=== PATIENT | male | born 1970 | race African-American/Black ===

== ENCOUNTER 2018-09-07 00:05 | Inpatient (IN) | payer MEDICARE ==
[~2018-09-07] VITALS: Ht 175.3 cm; Wt 75.6 kg
[2018-09-07] MEDS ORDERED: REME15TA PO ×2 (00:16→03:01)
[2018-09-07] MEDS ORDERED: ABIL1TAB13 PO ×2 (00:16→03:01)
[2018-09-07] MEDS ORDERED: LANTINJ4 SC ×2 (00:16→03:01)
[2018-09-07] MEDS ORDERED: SERO400T PO (00:16)
[2018-09-07] MEDS ORDERED: ZOLO25TA PO (00:16)
[2018-09-07] MEDS ORDERED: INSUH10VL SC (00:16)
[2018-09-07] MEDS ORDERED: AMLO25TA PO (00:22)
[2018-09-07] MEDS ORDERED: LISI-1046 PO (00:22)
[2018-09-07] MEDS ORDERED: HYDR12.55 PO (00:22)
[2018-09-07] MEDS ORDERED: NS 1,000 ML IV ONE (00:45)
[2018-09-07 00:55] LABS: VENOUS BASE EXCESS -7.1 (-2.0-2.0); VENOUS HCO3 17.5 MEQ/L (23.0-27.0); VENOUS O2 SATURATION 97.6 % (60.0-80.0); VENOUS PARTIAL PRESSURE CO2 32.8 mmHg (38.0-50.0); VENOUS PARTIAL PRESSURE O2 103.9 mmHg (30.0-50.0); VENOUS PH 7.345 UNITS (7.330-7.430); VENOUS STANDARD HCO3 18.7 MEQ/L; VENOUS TOTAL CO2 18.5 MEQ/L (24.0-28.0)
[2018-09-07 01:02] LABS: BASO % 0.3 % (0.0-1.0); EOS % 0.1 % (0.0-3.0); HEMATOCRIT 38.9 % (42.0-52.0); HEMOGLOBIN 12.5 g/dl (13.5-17.5); LYMPH % 18.2 % (24.0-44.0); MEAN CORPUSCULAR HEMOGLOBIN 25.9 pg (27.0-33.0); MEAN CORPUSCULAR HGB CONC 32.1 g/dl (32.0-36.5); MEAN CORPUSCULAR VOLUME 80.5 fl (80.0-96.0); MONO # 0.5 10^3/uL (0.0-0.8); MONO % 4.1 % (0.0-5.0); NEUTROPHILS # 8.5 10^3/uL (1.8-7.7); NEUTROPHILS % 76.8 % (36.0-66.0); PLATELET COUNT, AUTOMATED 288 10^3/uL (150-450); RED BLOOD COUNT 4.83 10^6/uL (4.30-6.10)
[2018-09-07 01:16] LABS: AMPHETAMINES LEVEL URINE NEGATIVE (NEGATIVE); BARBITURATES URINE NEGATIVE (NEGATIVE); BENZODIAZEPINES URINE NEGATIVE (NEGATIVE); CANNABINOIDS URINE NEGATIVE (NEGATIVE); COCAINE METABOLITE URINE NEGATIVE (NEGATIVE); METHADONE URINE NEGATIVE (NEGATIVE); OPIATES URINE NEGATIVE (NEGATIVE); PHENCYCLIDINE URINE NEGATIVE (NEGATIVE)
[2018-09-07 01:22] LABS: ACETAMINOPHEN LEVEL < 2.0 UG/ML (10.0-30.0); ALBUMIN 2.4 GM/DL (3.2-5.2); ALT/SGPT 117 U/L (12-78); BILIRUBIN,DIRECT 0.1 MG/DL (0.0-0.2); BILIRUBIN,TOTAL 0.2 MG/DL (0.2-1.0); BLOOD UREA NITROGEN 31 MG/DL (7-18); CALCIUM LEVEL 8.4 MG/DL (8.5-10.1); CARBON DIOXIDE LEVEL 18 MEQ/L (21-32); CHLORIDE LEVEL 84 MEQ/L (98-107); CREATININE FOR GFR 2.15 MG/DL (0.70-1.30); GLOMERULAR FILTRATION RATE 42.4 (>60); LIPASE 240 U/L (73-393); POTASSIUM SERUM 4.6 MEQ/L (3.5-5.1); SALICYLATE LEVEL < 1.7 MG/DL (5.0-30.0); SODIUM LEVEL 122 MEQ/L (136-145); TOTAL PROTEIN 7.6 GM/DL (6.4-8.2)
[2018-09-07 01:36] LABS: OSMOLALITY SERUM 359 MOSM/KG (275-295)
[2018-09-07 01:39] LABS: GLUCOSE, FASTING 1120 MG/DL (70-100)
[2018-09-07] MEDS ORDERED: KCL 20MEQ in NS 1000ML 1,000 ML IV SCH (02:15)
[2018-09-07] MEDS ORDERED: HumuLIN R (REGULAR) INSULIN (NovoLIN R) **100U/ML** PER UNIT IV ONE (02:15)
[2018-09-07] MEDS ORDERED: INSULIN IV RATE CHANGE DOCUMENTATION ML/HR XX SCH ×2 (02:15→03:30)
[2018-09-07] MEDS ORDERED: ONDANSETRON 4MG/2ML VIAL (J2405) IV ONE (02:15)
[2018-09-07] MEDS ORDERED: NS 2,000 ML IV ONE (02:30)
[2018-09-07] MEDS ORDERED: INSULIN HUMAN REGULAR 100 UNITS in NS 99 ML IV SCH ×2 (02:45→03:30)
[2018-09-07] MEDS ORDERED: LISI40TA PO (03:01)
[2018-09-07] MEDS ORDERED: GABA-843 PO (03:01)
[2018-09-07] MEDS ORDERED: SERT25TA88 PO (03:01)
[2018-09-07] MEDS ORDERED: PATIENT COMMENT (03:01)
[2018-09-07] MEDS ORDERED: HYDR25TAB PO (03:01)
[2018-09-07] MEDS ORDERED: VITA100T92 PO (03:01)
[2018-09-07] MEDS ORDERED: AMLO2.5T3 PO (03:01)
--- NOTE | 2018-09-07 03:32 | HPEPDOC ---
[facility] [place] Physical Date of Admission Sep 07, 2018 Other Provider None Attending Physician: CRISTOBAL LASSITER MD History and Physical CHIEF COMPLAINT: Suicidal ideation HISTORY OF PRESENT ILLNESS: Patient is a 48-year-old male with insulin-dependent diabetes, hypertension, bipolar disorder, PTSD, and schizoaffective disorder presented to ER with complaints of suicidal ideation. Patient reported that he has stopped taking his medication for morning one week including his insulin because he has been hearing voices in his head telling him to kill himself and he does have thoughts of hurting himself. On arrival in the ER patient was found to have severely elevated blood sugar of over 1000 and elevated anion gap. Patient reports reported thirst, nausea and some vomiting but otherwise reported no other complaints. He stated that he has had DKA in the past. Reportedly he does not have a primary care physician at this time, unsure how he has been getting his medications. PAST MEDICAL HISTORY: 1. Type 1 diabetes. 2. Hypertension. 3. Bipolar disorder. 4. PTSD 5. Schizoaffective disorder PAST SURGICAL HISTORY: None SOCIAL HISTORY: Smokes 2ppd. Social alcohol use. Uses IV cocaine and also marijuana. FAMILY HISTORY: None reported ALLERGIES: Please see below. REVIEW OF SYSTEMS: 10 point review of system negative except as stated in HPI HOME MEDICATIONS: Please see below. PHYSICAL EXAMINATION: General: No acute distress, Alert Eyes: Normal sclera, EOMI, NELLY HENT: Atraumatic, neck supple, moist mucous membranes Cardiovascular: Normal rate, normal rhythm. No murmurs appreciated. Pulmonary: Clear to auscultation b/l, no wheezing GI: Soft, nontender, nondistended Skin: Warm and dry Neuro: CN grossly intact. No focal deficits. Strengths equal b/l. Psych: oriented x 3 LABORATORY DATA: See below. MICROBIOLOGY: Please see below. ASSESSMENT AND PLAN: 1. Type I diabetes with HHS - BS >1000 with elevated AG. pH >7.3. - Has received 1L IVF bolus in ER, will give 2 additional L bolus then to start maintenance rate. - NPO - Fingerstick check q1H in ICU. - BMP q4H. - K+ 4.4. 2. HTN - Resume home medications. 3. Bipolar disorder/Schizoaffective disorder/PTSD/Suicidal ideation - Resume home medications - Need 1:1, to transfer to psych once medically cleared. - ongoing hallucinations with voices telling him to hurt himself. Reported medications not consistent with patient's previous record. Need to have Pharmacy verify with patient's pharmacy in AM. Patient is high risk due to suicidal ideation with [facility] Estimated length of stay 2-3 days with expected disposition to Psych once medically cleared. Vital Signs Vital Signs Date Time Temp Pulse Resp B/P (MAP) Pulse Ox O2 Delivery O2 Flow Rate FiO2 09/07/18 02:00 175/98 (123) 09/07/18 01:50 92 18 98 09/07/18 01:11 Room Air 09/07/18 00:06 97.9 Laboratory Data Labs 24H Laboratory Tests 2 09/07/18 00:44: Immature Granulocyte % (Auto) 0.5, White Blood Count 11.0H, Red Blood Count 4.83, Hemoglobin 12.5L, Hematocrit 38.9L, Mean Corpuscular Volume 80.5, Mean Corpuscular Hemoglobin 25.9L, Mean Corpuscular Hemoglobin Concent 32.1, Red Cell Distribution Width 14.3, Platelet Count 288, Neutrophils (%) (Auto) 76.8H, Lymphocytes (%) (Auto) 18.2L, Monocytes (%) (Auto) 4.1, Eosinophils (%) (Auto) 0.1, Basophils (%) (Auto) 0.3, Neutrophils # (Auto) 8.5H, Lymphocytes # (Auto) 2.0, Monocytes # (Auto) 0.5, Eosinophils # (Auto) 0.0, Basophils # (Auto) 0.0, Nucleated Red Blood Cells % (auto) 0.0, Urine Color STRAW, Urine Appearance CLEAR, Urine pH 5.0, Urine Specific [place] 1.022, Urine Protein 2+H, Urine Glucose (UA) 3+H, Urine Ketones TRACEH, Urine Blood 1+H, Urine Nitrite NEGATIVE, Urine Bilirubin NEGATIVE, Urine Urobilinogen 0.2, Urine Leukocyte Esterase NEGATIVE, Urine WBC (Auto) 0, Urine RBC (Auto) 3, Urine Hyaline Casts (Auto) 0, Urine Bacteria (Auto) NEGATIVE, Urine Squamous Epithelial Cells 0, Urine Sperm (Auto) , Blood Gas Bicarbonate Standard 18.7, Venous Blood pH 7.345, Venous Blood Partial Pressure CO2 32.8L, Venous Blood Partial Pressure O2 103.9H, Venous Blood Total Carbon Dioxide 18.5L, Venous Blood HCO3 17.5L, Venous Blood Oxygen Saturation 97.6H, Venous Blood Base Excess -7.1L, Anion Gap 20H, Glomerular Filtration Rate 42.4L, Osmolality 359H, Calcium Level 8.4L, Aspartate Amino Transf (AST/SGOT) 50H, Alanine Aminotransferase (ALT/SGPT) 117H, Alkaline Phosphatase 184H, Total Bilirubin 0.2, Direct Bilirubin 0.1, Total Protein 7.6, Albumin 2.4L, Albumin/Globulin Ratio 0.46L, Lipase 240, Salicylates Level < 1.7L, Urine Amphetamines Screen NEGATIVE, Urine Benzodiazepines Screen NEGATIVE, Urine Opiates Screen NEGATIVE, Urine Methadone Screen NEGATIVE, Acetaminophen Level < 2.0L, Urine Barbiturates Screen NEGATIVE, Urine Phencyclidine Screen NEGATIVE, Urine Cocaine Metabolite Screen NEGATIVE, Urine Cannabinoids Screen NEGATIVE CBC/BMP Laboratory Tests 09/07/18 00:44 Red Blood Count 4.83, Mean Corpuscular Volume 80.5, Mean Corpuscular Hemoglobin 25.9 L, Mean Corpuscular Hemoglobin Concent 32.1, Red Cell Distribution Width 14.3, Neutrophils (%) (Auto) 76.8 H, Lymphocytes (%) (Auto) 18.2 L, Monocytes (%) (Auto) 4.1, Eosinophils (%) (Auto) 0.1, Basophils (%) (Auto) 0.3, Neutr ophils # (Auto) 8.5 H, Lymphocytes # (Auto) 2.0, Monocytes # (Auto) 0.5, Eosinophils # (Auto) 0.0, Basophils # (Auto) 0.0 Home Medications Scheduled (Sertraline HCl) Unknown Strength Tab, Unknown Dose PO DAILY Amlodipine Besylate (Amlodipine Besylate) Unknown Strength Tab, Unknown Dose PO DAILY Aripiprazole (Abilify) Unknown Strength Tab, Unknown Dose PO DAILY Gabapentin (Gabapentin) 300 Mg Cap, 300 MG PO TID Hydrochlorothiazide (Hydrochlorothiazide) 25 Mg Tab, 25 MG PO DAILY Insulin Aspart (Novolog) 100 U/Ml Inj, 1 DOSE SC AC PER SLIDING SCALE Insulin Glargine (Lantus Solostar) 100 Unit/Ml Inj, 25 UNITS SC QHS Lisinopril (Lisinopril) 40 Mg Tab, 40 MG PO DAILY Mirtazapine (Remeron) Unknown Strength Tab, Unknown Dose PO QHS Quetiapine Fumerate (Seroquel) 400 Mg Tab, 400 MG PO QPM Thiamine Mononitrate (Vitamin B1) 100 Mg Tab, 100 MG PO DAILY Miscellaneous Medications [Patient Comment] PATIENT IS POOR HISTORIAN. CALLING PHARMACY IN MORNING. Allergies Coded Allergies: No Known Allergies (Unverified , 09/07/18) CRISTOBAL LASSITER MD Sep 07, 2018 03:32
[2018-09-07 04:48] LABS: CALCIUM LEVEL 7.8 MG/DL (8.5-10.1); CREATININE FOR GFR 1.82 MG/DL (0.70-1.30); GLOMERULAR FILTRATION RATE 51.3 (>60)
[2018-09-07 05:29] VITALS: BP 169/90
[2018-09-07] MEDS: KCL 20MEQ in NS 1000ML 1,000 ML IV SCH ×2 (05:30→08:03)
[2018-09-07] MEDS ORDERED: DEXTROSE 50% 50 ML SYRINGE IV PRN (06:15)
[2018-09-07] MEDS ORDERED: GLUCAGON FOR INJ 1 MG VIAL (J1610) SC PRN (06:15)
[2018-09-07] MEDS ORDERED: GLUCOSE 4 GM CHEW TABLET PO PRN (06:15)
[2018-09-07] MEDS ORDERED: INFLUENZA QUADRIVALENT PF VACCINE 0.5ML SYRINGE (90686) IM SCH (06:30)
[2018-09-07 08:00] VITALS: BP 156/82
[2018-09-07] MEDS: HumaLOG INSULIN (NovoLOG) PER UNIT SC SCH ×3 (08:17→17:13)
[2018-09-07 09:01] LABS: BLOOD UREA NITROGEN 22 MG/DL (7-18); CALCIUM LEVEL 7.7 MG/DL (8.5-10.1); CARBON DIOXIDE LEVEL 25 MEQ/L (21-32); CHLORIDE LEVEL 107 MEQ/L (98-107); GLOMERULAR FILTRATION RATE > 60.0 (>60); GLUCOSE, FASTING 217 MG/DL (70-100); POTASSIUM SERUM 3.8 MEQ/L (3.5-5.1); SODIUM LEVEL 138 MEQ/L (136-145)
--- NOTE | 2018-09-07 09:24 | ECGEPIP ---
Stationary ECG Study [facility] [place] - ED Test Date: 2018-09-07 Pat Name: JOSEPH NEWTON Department: Room: [place] [address] Gender: M [employer] Teacher: MARCO A : 1970 Requested By: CARLOS Garrett Order Number: [id number] Reading MD: Rubi Gupta Measurements Intervals [facility] Rate: 101 P: 63 DC: 157 QRS: 55 QRSD: 82 T: 8 QT: 345 QTc: 448 Interpretive Statements SINUS TACHYCARDIA POSSIBLE LEFT ATRIAL ENLARGEMENT NONSPECIFIC T-WAVE ABNORMALITY ABNORMAL RHYTHM ECG NO PRIOR FOR COMPARISON Electronically Signed On 09-07-2018 9:24:14 EDT by Rubi Gupta
[2018-09-07] MEDS ORDERED: LEVEMIR (INSULIN DETEMIR) 1 UNITS/0.01ML SC ONE (11:30)
[2018-09-07] MEDS: hydroCHLOROthiazide 25 MG TAB PO SCH (11:57)
[2018-09-07] MEDS: LISINOPRIL 20 MG TAB PO SCH (11:57)
[2018-09-07 12:00] VITALS: BP 159/77
[2018-09-07] MEDS ORDERED: HumaLOG INSULIN (NovoLOG) PER UNIT SC SCH ×3 (12:00→21:00)
[2018-09-07] MEDS: NICOTINE POLACRILEX 2 MG GUM PO PRN ×4 (15:23→22:26)
--- NOTE | 2018-09-07 17:56 | CR ---
DATE OF CONSULTATION: 09/07/2018 HISTORY OF PRESENT ILLNESS: This is a 48-year-old man who actually presented to the hospital requesting a psychiatric admission however he was admitted because of very high blood sugars of over a 1,000. The patient had presented to the hospital complaining of command auditory hallucinations, telling him to harm himself or to jump off a bridge. The patient admits that he had thoughts of hurting himself. The patient has a long standing psychiatric history and he was last hospitalized in a hospital in [place] and there he met a friend who told him there would be a room for him here and that did not work out for him and so basically he was kicked out on the street. Patient tells me that he has not been on any medications now for a lot of weeks including his insulin. He states that he is supposed to be on Remeron, Depakote, Abilify, Zoloft and Seroquel but he is not sure of the doses. He states that he has been diagnosed with schizoaffective disorder, bipolar disorder and PTSD. 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 He says that he has nightmares and flashbacks and he startles easily. PAST PSYCHIATRIC HISTORY: The patient states that he has been hospitalized multiple times. He is originally from [facility]. He says that he made one suicidal attempt where he said that he actually off a building but he ended up in a balcony with fractured ribs. FAMILY HISTORY: There are no suicides in the family. He says that his mom and his sister are bipolar. ABUSE HISTORY: He denies any physical or sexual abuse however he has PTSD as noted above. SUBSTANCE ABUSE: The patient says that he drinks alcohol about two times a month and mildly about once a month, I suspect that he is minimizing how much he is using because the admission note medical service said something about IV cocaine and marijuana. Of note however his toxicology was negative for any drugs. However he talks about wanting to go to an inpatient rehabilitation program and being in a recovery program before, so I suspect that his history with substance abuse is more extensive than what he is telling us. MENTAL STATUS EXAMINATION: He is alert and oriented times three. He is pleasant and cooperative. Verbally spontaneous. Eye contact is fair. Psychomotor activity has decreased. There is no formal thought disorder noted. His mood is full range and appropriate. Patient denied auditory hallucinations. He admits to suicidal ideations and he denies homicidal ideations and concentration is fair. Memory is intact. Insight and judgment is poor. DIAGNOSIS: Other specified psychotic disorder, posttraumatic stress disorder. Schizoaffective disorder by history, bipolar disorder by history. RECOMMENDATIONS: The patient at this point complains of auditory command hallucinations to hurt himself. He is also suicidal. If or when the patient is medically stable he should be transferred to the psychiatric unit for further evaluation and stabilization.
--- NOTE | 2018-09-07 19:40 | IPNPDOC ---
Subjective Date Seen The patient was seen on 09/07/18. Subjective Chief Complaint/HPI Suicidal ideation Events since last encounter Patient reports he has been hearing was as that have been asking him to jump off the bridge and to kill himself. He reports he is still hearing these voices this morning. He reports he does not feel safe. Reports he has not been taking any of his medications for almost a month. Reports he was living with a friend at doesn't live with him anymore. He otherwise reports he is feeling better this morning. Denies any problems with headaches/change in vision. No nausea or vomiting. No chest shortness of breath. No abdominal pain. Tolerating oral intake. Objective Physical Examination General Exam: Positive: Alert, Cooperative, No Acute Distress Eye Exam: Positive: PERRLA ENT Exam: Positive: Mucous membr. moist/pink Chest Exam: Positive: Clear to auscultation, Normal air movement; Negative: Rales, Rhonchi, Wheezing Heart Exam: Positive: Rate Normal, Normal S1, Normal S2 Abdomen Exam: Positive: Soft, Other (no tenderness) Neuro Exam: Positive: Other (awake, alert, oriented 3. Moving all 4 extremities) Assessment /Plan Assessment Diabetes mellitus likely type II with hyperglycemic hyperosmolar state: -Patient was initially treated with IV insulin drip as well as aggressive IV hydration -Fingersticks improved -Subsequently he has been transitioned to subcutaneous insulin -I will administer 25 units Levemir this morning and 30 units tonight - patient reports taking 55-60 units of Levemir at home at bedtime -I will also start him on NovoLog 10 units 3 times a day pre-meal in addition to sliding scalehe reports taking 20 units 3 times a day before meals -Tolerating oral intake -Monitor fingersticks -okay to transfer out of ICU 2. HTN - Resumed lisinopril and HCTZ 3. Bipolar disorder/Schizoaffective disorder/PTSD/Suicidal ideation -Psychiatry has been consulted - appreciate input -Continue one-to-one sitter -He will likely require inpatient mental health treatment once medically stablehopefully by tomorrow Plan/VTE VTE Prophylaxis Ordered?: No VTE Exclusion Mechanical Proph: Low Risk for VTE VTE Exclusion Pharmacological: At Low Risk for VTE VS, I&O, 24H, Fishbone Vital Signs/I&O Vital Signs Date Time Temp Pulse Resp B/P (MAP) Pulse Ox O2 Delivery O2 Flow Rate FiO2 09/07/18 12:00 98.4 88 18 159/77 (104) 09/07/18 08:00 97 09/07/18 01:11 Room Air I&O- Last 24 Hours up to 6 AM 09/07/18 06:00 Intake Total 4782 ml Output Total 1200 ml Balance 3582 ml Laboratory Data 24H LABS Laboratory Tests 2 09/07/18 00:44: Immature Granulocyte % (Auto) 0.5, White Blood Count 11.0H, Red Blood Count 4.83, Hemoglobin 12.5L, Hematocrit 38.9L, Mean Corpuscular Volume 80.5, Mean Corpuscular Hemoglobin 25.9L, Mean Corpuscular Hemoglobin Concent 32.1, Red Cell Distribution Width 14.3, Platelet Count 288, Neutrophils (%) (Auto) 76.8H, Lymphocytes (%) (Auto) 18.2L, Monocytes (%) (Auto) 4.1, Eosinophils (%) (Auto) 0.1, Basophils (%) (Auto) 0.3, Neutrophils # (Auto) 8.5H, Lymphocytes # (Auto) 2.0, Monocytes # (Auto) 0.5, Eosinophils # (Auto) 0.0, Basophils # (Auto) 0.0, Nucleated Red Blood Cells % (auto) 0.0, Urine Color STRAW, Urine Appearance CLEAR, Urine pH 5.0, Urine Specific [place] 1.022, Urine Protein 2+H, Urine Glucose (UA) 3+H, Urine Ketones TRACEH, Urine Blood 1+H, Urine Nitrite NEGATIVE, Urine Bilirubin NEGATIVE, Urine Urobilinogen 0.2, Urine Leukocyte Esterase NEGATIVE, Urine WBC (Auto) 0, Urine RBC (Auto) 3, Urine Hyaline Casts (Auto) 0, Urine Bacteria (Auto) NEGATIVE, Urine Squamous Epithelial Cells 0, Urine Sperm (Auto) , Blood Gas Bicarbonate Standard 18.7, Venous Blood pH 7.345, Venous Blood Partial Pressure CO2 32.8L, Venous Blood Partial Pressure O2 103.9H, Venous Blood Total Carbon Dioxide 18.5L, Venous Blood HCO3 17.5L, Venous Blood Oxygen Saturation 97.6H, Venous Blood Base Excess -7.1L, Anion Gap 20H, Glomerular Filtration Rate 42.4L, Osmolality 359H, Calcium Level 8.4L, Aspartate Amino Transf (AST/SGOT) 50H, Alanine Aminotransferase (ALT/SGPT) 117H, Alkaline Phosphatase 184H, Total Bilirubin 0.2, Direct Bilirubin 0.1, Total Protein 7.6, Albumin 2.4L, Albumin/Globulin Ratio 0.46L, Lipase 240, Salicylates Level < 1.7L, Urine Amphetamines Screen NEGATIVE, Urine Benzodiazepines Screen NEGATIVE, Urine Opiates Screen NEGATIVE, Urine Methadone Screen NEGATIVE, Acetaminophen Level < 2.0L, Urine Barbiturates Screen NEGATIVE, Urine Phencyclidine Screen NE GATIVE, Urine Cocaine Metabolite Screen NEGATIVE, Urine Cannabinoids Screen NEGATIVE 09/07/18 03:50: Anion Gap 12, Glomerular Filtration Rate 51.3L, Calcium Level 7.8L, Blood Urea Nitrogen 26H, Creatinine 1.82H, Sodium Level 134#L, Potassium Level 4.0, Chloride Level 101, Carbon Dioxide Level 21 09/07/18 06:03: Bedside Glucose (Misc Panel) 262H 09/07/18 08:02: Bedside Glucose (Misc Panel) 205H 09/07/18 08:37: Anion Gap 6L, Glomerular Filtration Rate > 60.0, Blood Urea Nitrogen 22H, Creatinine 1.40H, Sodium Level 138, Potassium Level 3.8, Chloride Level 107, Carbon Dioxide Level 25, Calcium Level 7.7L 09/07/18 11:42: Bedside Glucose (Misc Panel) 205H 09/07/18 15:17: Bedside Glucose (Misc Panel) 381H 09/07/18 16:45: Bedside Glucose (Misc Panel) 167H CBC/BMP Laboratory Tests 09/07/18 00:44 Red Blood Count 4.83, Mean Corpuscular Volume 80.5, Mean Corpuscular Hemoglobin 25.9 L, Mean Corpuscular Hemoglobin Concent 32.1, Red Cell Distribution Width 14.3, Neutrophils (%) (Auto) 76.8 H, Lymphocytes (%) (Auto) 18.2 L, Monocytes (%) (Auto) 4.1, Eosinophils (%) (Auto) 0.1, Basophils (%) (Auto) 0.3, Neutrophils # (Auto) 8.5 H, Lymphocytes # (Auto) 2.0, Monocytes # (Auto) 0.5, Eosinophils # (Auto) 0.0, Basophils # (Auto) 0.0 09/07/18 03:50 Calcium Level 7.8 L 09/07/18 08:37 Calcium Level 7.7 L KESHAWN ANN MD Sep 07, 2018 19:40
[2018-09-07] MEDS ORDERED: LEVEMIR (INSULIN DETEMIR) 1 UNITS/0.01ML SC SCH ×2 (21:00)
[2018-09-07 22:00] VITALS: BP 163/80
[2018-09-08] MEDS: NICOTINE POLACRILEX 2 MG GUM PO PRN ×5 (01:22→17:13)
[2018-09-08] MEDS ORDERED: QUEtiapine FUMARATE 200 MG TAB PO ONE (01:30)
[2018-09-08 02:00] VITALS: BP 154/76
[2018-09-08 06:00] VITALS: BP 125/68
[2018-09-08 06:45] LABS: BASO % 0.4 % (0.0-1.0); EOS # 0.2 10^3/uL (0.0-0.50); HEMATOCRIT 33.4 % (42.0-52.0); HEMOGLOBIN 11.4 g/dl (13.5-17.5); LYMPH # 4.2 10^3/uL (1.5-4.5); MEAN CORPUSCULAR HEMOGLOBIN 26.1 pg (27.0-33.0); MEAN CORPUSCULAR HGB CONC 34.1 g/dl (32.0-36.5); MEAN CORPUSCULAR VOLUME 76.6 fl (80.0-96.0); MONO # 0.4 10^3/uL (0.0-0.8); MONO % 4.9 % (0.0-5.0); NEUTROPHILS # 3.2 10^3/uL (1.8-7.7); NEUTROPHILS % 40.4 % (36.0-66.0); PLATELET COUNT, AUTOMATED 215 10^3/uL (150-450); RED BLOOD COUNT 4.36 10^6/uL (4.30-6.10)
[2018-09-08 07:12] LABS: BLOOD UREA NITROGEN 13 MG/DL (7-18); CALCIUM LEVEL 7.6 MG/DL (8.5-10.1); CARBON DIOXIDE LEVEL 29 MEQ/L (21-32); CHLORIDE LEVEL 107 MEQ/L (98-107); GLOMERULAR FILTRATION RATE > 60.0 (>60); GLUCOSE, FASTING 57 MG/DL (70-100); MAGNESIUM LEVEL 1.8 MG/DL (1.8-2.4); PHOSPHORUS LEVEL 1.9 MG/DL (2.5-4.9); POTASSIUM SERUM 3.1 MEQ/L (3.5-5.1); SODIUM LEVEL 140 MEQ/L (136-145)
[2018-09-08] MEDS: HumaLOG INSULIN (NovoLOG) PER UNIT SC SCH ×3 (07:22→17:13)
[2018-09-08] MEDS ORDERED: HumaLOG INSULIN (NovoLOG) PER UNIT SC SCH (07:30)
[2018-09-08] MEDS ORDERED: INFLUENZA QUADRIVALENT PF VACCINE 0.5ML SYRINGE (90686) IM ONE (09:00)
[2018-09-08] MEDS: NEUTRA-PHOS 1.25 GM PACKET PO SCH ×3 (09:00→17:12)
[2018-09-08 09:15] VITALS: BP 125/66
[2018-09-08] MEDS: hydroCHLOROthiazide 25 MG TAB PO SCH (09:15)
[2018-09-08] MEDS: LISINOPRIL 20 MG TAB PO SCH (09:15)
[2018-09-08] MEDS ORDERED: POTASSIUM CHLORIDE 10 MEQ SR TABLET PO ONE (10:15)
--- NOTE | 2018-09-08 13:42 | IPNPDOC ---
Subjective Date Seen The patient was seen on 09/08/18. Subjective Chief Complaint/HPI Suicidal ideation Events since last encounter The patient reports he did not sleep well last night as he was having nightmares that seemed quite real. Reports he is still hearing voices that are telling him to hurt himself. Tolerating oral intake well. No problems with nausea or vomiting. Denies any dizziness. No chest pain/shortness of breath/abdominal pain/nausea/vomiting. No problems with bladder/bowel habits. Objective Physical Examination General Exam: Positive: No Acute Distress, Other (sleeping, easily arousable) Eye Exam: Positive: PERRLA ENT Exam: Positive: Mucous membr. moist/pink Chest Exam: Positive: Clear to auscultation, Normal air movement; Negative: Rales, Rhonchi, Wheezing Heart Exam: Positive: Rate Normal, Normal S1, Normal S2 Abdomen Exam: Positive: Soft, Other (Nontender) Neuro Exam: Positive: Other (sleeping, easily arousable. Moving all 4 extremities.) Assessment /Plan Assessment Diabetes mellitus likely type II with hyperglycemic hyperosmolar state: -Initially treated with IV insulin drip as well as aggressive IV hydration -Fingersticks improved - transitioned to subcutaneous insulin -Patient had problem with hypoglycemia this morning with fingerstick 57. -I have discontinued the pre-meals scheduled insulin. Continue Levemir at lower- dose of 30 units at bedtimepatient reports usually she takes 55-60 units at bedtime in addition to taking 20 units of NovoLog 3 times a day before meals. -Monitor fingersticks 2. HTN - Ct lisinopril and HCTZ 3. Acute kidney injury, likely prerenal related to problem #1 and dehydration from same: -Improved with initial IV fluids -Now tolerating oral intake well -Monitor. 4. Bipolar disorder/Schizoaffective disorder/PTSD/Suicidal ideation -Psychiatry has been consulted - appreciate input -Continue one-to-one sitter -He will require inpatient mental health treatment once medically stable -I will defer psychiatric medications to psychiatry - currently on Seroquel 400 mg every afternoon 5. Hypokalemia: -Replete and recheck 6. Hypophosphatemia: -Replete and recheck Disposition: Anticipate discharge to inpatient mental health unit later today or tomorrow based on patient's fingersticks / blood glucose control Plan/VTE VTE Prophylaxis Ordered?: No VTE Exclusion Mechanical Proph: Low Risk for VTE VTE Exclusion Pharmacological: At Low Risk for VTE VS, I&O, 24H, Fishbone Vital Signs/I&O Vital Signs Date Time Temp Pulse Resp B/P (MAP) Pulse Ox O2 Delivery O2 Flow Rate FiO2 09/08/18 09:15 125/66 09/08/18 06:00 98.0 81 18 99 09/07/18 01:11 Room Air I&O- Last 24 Hours up to 6 AM 09/08/18 06:00 Intake Total 2030 ml Output Total 0 ml Balance 2030 ml Laboratory Data 24H LABS Laboratory Tests 2 09/07/18 15:17: Bedside Glucose (Misc Panel) 381H 09/07/18 16:45: Bedside Glucose (Misc Panel) 167H 09/07/18 19:58: Bedside Glucose (Misc Panel) 172H 09/08/18 05:57: Immature Granulocyte % (Auto) 0.3, White Blood Count 8.0, Red Blood Count 4.36, Hemoglobin 11.4L, Hematocrit 33.4L, Mean Corpuscular Volume 76.6L, Mean Corpuscular Hemoglobin 26.1L, Mean Corpuscular Hemoglobin Concent 34.1, Red Cell Distribution Width 14.6H, Platelet Count 215, Neutrophils (%) (Auto) 40.4, Lymphocytes (%) (Auto) 52.0H, Monocytes (%) (Auto) 4.9, Eosinophils (%) (Auto) 2.0, Basophils (%) (Auto) 0.4, Neutrophils # (Auto) 3.2, Lymphocytes # (Auto) 4.2, Monocytes # (Auto) 0.4, Eosinophils # (Auto) 0.2, Basophils # (Auto) 0.0, Nucleated Red Blood Cells % (auto) 0.0, Anion Gap 4L, Glomerular Filtration Rate > 60.0, Blood Urea Nitrogen 13, Creatinine 1.00, Sodium Level 140, Potassium Level 3.1L, Chloride Level 107, Carbon Dioxide Level 29, Calcium Level 7.6L, Phosphorus Level 1.9L, Magnesium Level 1.8 CBC/BMP Laboratory Tests 09/08/18 05:57 Red Blood Count 4.36, Mean Corpuscular Volume 76.6 L, Mean Corpuscular Hemoglobin 26.1 L, Mean Corpuscular Hemoglobin Concent 34.1, Red Cell Distribution Width 14.6 H, Neutrophils (%) (Auto) 40.4, Lymphocytes (%) (Auto) 52.0 H, Monocytes (%) (Auto) 4.9, Eosinophils (%) (Auto) 2.0, Basophils (%) (Auto) 0.4, Neutrophils # (Auto) 3.2, Lymphocytes # (Auto) 4.2, Monocytes # (Auto) 0.4, Eosinophils # (Auto) 0.2, Basophils # (Auto) 0.0, Calcium Level 7.6 L KESHAWN ANN MD Sep 08, 2018 13:42
[2018-09-08 14:00] VITALS: BP 125/59
[2018-09-08] MEDS ORDERED: INSUHUMDS SC ×2 (14:34)
[2018-09-08] MEDS ORDERED: INSUDET SC (14:34)
[2018-09-08] MEDS ORDERED: NEUTPW PO (14:34)
--- NOTE | 2018-09-08 17:02 | DS.PDOC ---
Discharge Summary General Date of Admission Sep 07, 2018 at 03:15 Date of Discharge 09/08/18 Discharge Summary PROCEDURES PERFORMED DURING STAY: None. ADMITTING DIAGNOSES: 1. Type I diabetes with HHS 2. HTN 3. Bipolar disorder/Schizoaffective disorder/PTSD/Suicidal ideation DISCHARGE DIAGNOSES: 1. Diabetes mellitus likely type II with hyperglycemic hyperosmolar state 2. HTN 3. Acute kidney injury, likely prerenal related to problem #1 and dehydration from same 4. Bipolar disorder/Schizoaffective disorder/PTSD/Suicidal ideation 5. Hypokalemia 6. Hypophosphatemia COMPLICATIONS/CHIEF COMPLAINT: Bipolor Disorder,Diabetic Hyperosmolar Non Ketotic. HISTORY OF PRESENT ILLNESS: The patient is a 48-year-old gentleman with a previous history of diabetes mellitus as well as a reported history of schizoaffective disorder, PTSD, bipolar disorder presented to the ER with complaints of suicidal ideation. The patient had not been taking any of his medications for a month per his reports. In the ER, the patient was found to have blood sugar over 1000. He also had elevated anion gap. Findings were consistent with HHS. The patient was given fluid boluses and was patient was admitted to the ICU on an insulin drip for further management. HOSPITAL COURSE: Diabetes mellitus likely type II with hyperglycemic hyperosmolar state: -Initially treated with IV insulin drip as well as aggressive IV hydration -Fingersticks improved - transitioned to subcutaneous insulin -Patient had problem with hypoglycemia this morning with fingerstick 57. -I have discontinued the pre-meals scheduled insulin. Continue Levemir at lower- dose of 25 units at bedtime (patient reports usually she takes 55-60 units at bedtime in addition to taking 20 units of NovoLog 3 times a day before meals). We will continue the sliding scale insulin -Monitor fingersticks 2. HTN - Ct lisinopril and HCTZ 3. Acute kidney injury, likely prerenal related to problem #1 and dehydration from same: -Improved with initial IV fluids -Now tolerating oral intake well -Monitor. 4. Bipolar disorder/Schizoaffective disorder/PTSD/Suicidal ideation -Psychiatry has been consulted - appreciate input -Continue one-to-one sitter -He will require inpatient mental health treatment once medically stable -I will defer psychiatric medications to psychiatry - currently on Seroquel 400 mg every afternoon 5. Hypokalemia: -Repleted 6. Hypophosphatemia: -Repleted DISCHARGE MEDICATIONS: Please see below. ALLERGIES: Please see below. PHYSICAL EXAMINATION ON DISCHARGE: VITAL SIGNS: Please see below. GENERAL: Lying in bed. No distress HEENT: PERRLA CARDIOVASCULAR EXAMINATION: S1-S2 heard, regular rate rhythm. No rubs or gallops. RESPIRATORY EXAMINATION: Clear to auscultation bilaterally. No wheeze, no crackles ABDOMINAL EXAMINATION: Soft, nontender EXTREMITIES: Bilateral pulses present. Extremities are warm and well perfused NEUROLOGICAL EXAMINATION: Awake, alert, oriented 3 and answering questions appropriately LABORATORY DATA: Please see below. ACTIVITY: As tolerated. DIET: Carbohydrate controlled diet DISCHARGE PLAN: Plan is for patient to be discharged to inpatient mental health unit today. Outpatient follow-up with primary care provider in one week following discharge from [facility] DISCHARGE INSTRUCTIONS: 1. BMP, mag and phos to be checked tomorrow DISCHARGE CONDITION: Stable. TIME SPENT ON DISCHARGE: 38 minutes. Vital Signs/I&Os Vital Signs Date Time Temp Pulse Resp B/P (MAP) Pulse Ox O2 Delivery O2 Flow Rate FiO2 09/08/18 14:00 98.5 74 18 125/59 (81) 99 09/07/18 01:11 Room Air I&O- Last 24 Hours up to 6 AM 09/08/18 06:00 Intake Total 2030 ml Output Total 0 ml Balance 2030 ml Laboratory Data Labs 24H Laboratory Tests 2 09/07/18 19:58: Bedside Glucose (Misc Panel) 172H 09/08/18 05:57: Immature Granulocyte % (Auto) 0.3, White Blood Count 8.0, Red Blood Count 4.36, Hemoglobin 11.4L, Hematocrit 33.4L, Mean Corpuscular Volume 76.6L, Mean C orpuscular Hemoglobin 26.1L, Mean Corpuscular Hemoglobin Concent 34.1, Red Cell Distribution Width 14.6H, Platelet Count 215, Neutrophils (%) (Auto) 40.4, Lymphocytes (%) (Auto) 52.0H, Monocytes (%) (Auto) 4.9, Eosinophils (%) (Auto) 2.0, Basophils (%) (Auto) 0.4, Neutrophils # (Auto) 3.2, Lymphocytes # (Auto) 4.2, Monocytes # (Auto) 0.4, Eosinophils # (Auto) 0.2, Basophils # (Auto) 0.0, Nucleated Red Blood Cells % (auto) 0.0, Anion Gap 4L, Glomerular Filtration Rate > 60.0, Blood Urea Nitrogen 13, Creatinine 1.00, Sodium Level 140, Potassium Level 3.1L, Chloride Level 107, Carbon Dioxide Level 29, Calcium Level 7.6L, Phosphorus Level 1.9L, Magnesium Level 1.8 CBC/BMP Laboratory Tests 09/08/18 05:57 Red Blood Count 4.36, Mean Corpuscular Volume 76.6 L, Mean Corpuscular Hemoglobin 26.1 L, Mean Corpuscular Hemoglobin Concent 34.1, Red Cell Distribution Width 14.6 H, Neutrophils (%) (Auto) 40.4, Lymphocytes (%) (Auto) 52.0 H, Monocytes (%) (Auto) 4.9, Eosinophils (%) (Auto) 2.0, Basophils (%) (Auto) 0.4, Neutrophils # (Auto) 3.2, Lymphocytes # (Auto) 4.2, Monocytes # (Auto) 0.4, Eosinophils # (Auto) 0.2, Basophils # (Auto) 0.0, Calcium Level 7.6 L FSBS Laboratory Tests Test 09/07/18 19:58 Range/Units Bedside Glucose (Misc Panel) 172 70-105 MG/DL Discharge Medications Scheduled Hydrochlorothiazide (Hydrochlorothiazide) 25 Mg Tab, 25 MG PO DAILY, (Reported) Insulin Detemir (Levemir) 1 Units/0.01 Ml Susp, 25 UNITS SC QHS Insulin Human Lispro (Humalog) 1 Units/0.01 Ml Inj, 0 UNITS SC AC 0-100: 0 units, 101-150: 2 units, 151-200: 4 units, 201-250: 6 units, 251- 300: 8 units, 301-350: 10 units, 351-400: 12 units, >400: 14 units Insulin Human Lispro (Humalog) 1 Units/0.01 Ml Inj, 0 UNITS SC QHS 0-250: 0 units, 251-300: 2 Units, 301-350: 4 units, 351-400: 6 units, >400: 8 units Lisinopril (Lisinopril) 40 Mg Tab, 40 MG PO DAILY, (Reported) Potassium Phos/Sodium Phos (Phos-Nak Powder (Neutra Phos) 280-160-250 mg) 1 Pkt Powd, 1 PKT PO QID Quetiapine Fumerate (Seroquel) 400 Mg Tab, 400 MG PO QPM, (Reported) Allergies Coded Allergies: No Known Allergies (Unverified , 09/07/18) KESHAWN ANN MD Sep 08, 2018 17:02
[2018-09-08] MEDS ORDERED: QUEtiapine FUMARATE 200 MG TAB PO SCH (21:00)
== END 2018-09-08 17:50 | DRG 638 ==
LOC: M ED 00:05 → M ED INP 03:15 → M ICU 05:22 → M MSPAV 17:26
PROVIDERS: ADMIT Student in an Organized Health Care Education/Training Program; ATTEND Internal Medicine
DX: E11.00 Type 2 diabetes mellitus with hyperosmolarity without nonketotic hyperglycemic-hyperosmolar coma (NKHHC) (principal); R45.851 Suicidal ideations; N17.9 Acute kidney failure, unspecified; E87.6 Hypokalemia; E83.39 Other disorders of phosphorus metabolism; F25.0 Schizoaffective disorder, bipolar type; E86.0 Dehydration; F43.10 Post-traumatic stress disorder, unspecified; Z79.899 Other long term (current) drug therapy; Z79.4 Long term (current) use of insulin

== ENCOUNTER 2018-09-08 17:35 | Inpatient (IN) | payer MEDICARE ==
[~2018-09-08] VITALS: Ht 175.3 cm; Wt 80.2 kg
[~2018-09-08 17:35] MED LIST: ABIL1TAB13 PO; AMLO2.5T3 PO; AMLO25TA PO; GABA-843 PO; HYDR12.55 PO; HYDR25TAB PO; INSUDET SC; INSUH10VL SC; INSUHUMDS SC; LANTINJ4 SC; LISI-1046 PO; LISI40TA PO; NEUTPW PO; PATIENT COMMENT; REME15TA PO; SERO400T PO; SERT25TA88 PO; VITA100T89 PO; ZOLO25TA PO
[2018-09-08] MEDS ORDERED: GLUCOSE 4 GM CHEW TABLET PO PRN (18:00)
[2018-09-08] MEDS ORDERED: GLUCAGON FOR INJ 1 MG VIAL (J1610) SC PRN (18:00)
[2018-09-08] MEDS ORDERED: MAALOX 30 ML SUSP *UDC PO PRN (18:00)
[2018-09-08] MEDS ORDERED: MOM 30ML SUSPENSION UDC PO PRN (18:00)
[2018-09-08] MEDS ORDERED: ACETAMINOPHEN TAB 650MG DOSE (2X325MG) PO PRN (18:00)
[2018-09-08] MEDS: NICOTINE POLACRILEX 2 MG GUM PO PRN ×2 (20:05→22:02)
[2018-09-08 20:13] VITALS: BP 150/84
[2018-09-08] MEDS: GABAPENTIN 300 MG CAP PO SCH (21:53)
[2018-09-08] MEDS: QUEtiapine FUMARATE 200 MG TAB PO SCH (21:53)
[2018-09-08] MEDS: LEVEMIR (INSULIN DETEMIR) 1 UNITS/0.01ML SC SCH (22:03)
[2018-09-08] MEDS: HumaLOG INSULIN (NovoLOG) PER UNIT SC SCH (22:03)
[2018-09-09] MEDS: HumaLOG INSULIN (NovoLOG) PER UNIT SC SCH ×4 (06:25→21:55)
[2018-09-09] MEDS: NICOTINE POLACRILEX 2 MG GUM PO PRN ×6 (06:30→22:10)
[2018-09-09 06:58] VITALS: BP 113/55
[2018-09-09 08:11] LABS: BLOOD UREA NITROGEN 15 MG/DL (7-18); CALCIUM LEVEL 7.7 MG/DL (8.5-10.1); CARBON DIOXIDE LEVEL 29 MEQ/L (21-32); CHLORIDE LEVEL 106 MEQ/L (98-107); CREATININE FOR GFR 1.36 MG/DL (0.70-1.30); GLOMERULAR FILTRATION RATE > 60.0 (>60); GLUCOSE, FASTING 167 MG/DL (70-100); MAGNESIUM LEVEL 1.9 MG/DL (1.8-2.4); PHOSPHORUS LEVEL 2.9 MG/DL (2.5-4.9); POTASSIUM SERUM 3.6 MEQ/L (3.5-5.1); SODIUM LEVEL 141 MEQ/L (136-145)
[2018-09-09] MEDS: GABAPENTIN 300 MG CAP PO SCH ×3 (08:30→21:52)
[2018-09-09] MEDS: hydroCHLOROthiazide 25 MG TAB PO SCH (08:30)
[2018-09-09] MEDS: LISINOPRIL 40 MG TAB PO SCH (08:30)
--- NOTE | 2018-09-09 08:45 | CR.PDOC ---
General Date of Consultation: Sep 09, 2018 Referring Provider: Katty Lopez Attending Physician: PEDRO LUIS SORENSEN MD Consultation HOSPITALIST CONSULT REASON FOR CONSULTATION/CHIEF COMPLAINT: management of blood sugars HISTORY OF PRESENT ILLNESS: Mr. Paris is a 48-year-old male with a history of IDDM 2, recently admitted for DKA. He had initially presented to the ER with complaints of suicidal ideation, had not taken his meds for over a week due to voices in his head telling himself to kill himself. He was medically stabilized and brought off insulin drip, then transferred to [facility] for further management of his psychiatric condition. Hospitalist was consulted to additionally manage his blood sugars as they have been reportedly labile. When examined, patient states that he has been on other medication such as metformin in the past, however currently is only managed with insulin. He states he normally takes 50 units of Lantus before bedtime, and 20 units of NovoLog before each meal, and that this regimen usually keeps his blood sugars in the mid 200s, however he does have episodes of hypoglycemia about once a week with blood sugars in the 60s. He has no complaints today. No new paresthesias, however he does have history of diab etic neuropathy. No lightheadedness, dizziness, nausea, vomiting, abdominal pain. ALLERGIES: Please see below. HOME MEDICATIONS: Please see below. PAST MEDICAL HISTORY: 1. IDDM2 2. Bipolar Disorder 3. Hypertension. 4. PTSD 5. Schizoaffective disorder PAST SURGICAL HISTORY: none SOCIAL HISTORY: Smokes 2 PPD. Social alcohol use. Per records, uses IV cocaine and marijuana REVIEW OF SYSTEMS: Constitutional: Denies fever, chills Eyes: Denies eye pain, vision change ENT: Denies headaches, ear pain, dysphagia Skin: Denies any rashes or lesions Pulmonary: Denies dyspnea, cough, wheezing Cardiac: Denies chest pain, palpitations, lightheadedness GI: Denies nausea, vomiting, abdominal pain, changes in bowel habit Endocrine: Denies polyuria, polydipsia Neurologic: Denies new weakness or numbness/tingling. Does admit to diabetic neuropathy in feet PHYSICAL EXAMINATION: VITAL SIGNS: Please see below. General: NAD, A&Ox3, resting comfortably HEENT: NCAT, EOMI, anicteric sclera, MMM CV: RRR, no murmurs RESP: CTAB, no w/r/r/ ABD: soft, NT, ND. Benign EXTREMITIES: 2+ radial pulses b/l, able to move all extremities NEURO: no deficits or acute changes PSYCH: appropriately conversant LABORATORY DATA: Please see below. ASSESSMENT/PLAN: 48 yo M with IDDM2 recently admitted to hospital for DKA and now transferred to [facility] for management of his chronic psych conditions. Hospitalist consulted for labile blood sugars. 1. IDDM2 with neuropathy * pt admits to normally using 50U Lantus qhs and 20U Novolog qac and admits to sugars in 200s with this regimen. However, per his record, he is supposed to take 25U Lantus. Currently, he is on 30U Levemir qhs, with overall elevated blood sugars, mostly towards end of the day. We will add additional 10U for mornings, and continue ISS and consistent carb diet. He is otherwise doing well. Monitor blood sugars and adjust regimen accordingly * monitor ac/hs fingersticks * Continue Gabapentin for neuropathy 2. Hypertension-controlled on current regimen: lisinopril, HCTZ 3. Bipolar Disorder / PTSD / Schizoaffective disorder-as per Psych. Appears stable and conversant 4. Nicotine Use Disorder-continue nicotine patch DVT ppx: is ambulating hallways DISPO: We will follow along with you. Vital Signs/I&O Vital Signs Date Time Temp Pulse Resp B/P (MAP) Pulse Ox O2 Delivery O2 Flow Rate FiO2 09/09/18 06:58 98.2 62 14 113/55 (74) 09/08/18 20:13 98 Laboratory Data Labs 24H Laboratory Tests 2 09/08/18 21:58: Bedside Glucose (Misc Panel) 414H 09/09/18 06:20: Bedside Glucose (Misc Panel) 365H 09/09/18 07:28: Anion Gap 6L, Glomerular Filtration Rate > 60.0, Blood Urea Nitrogen 15, Creatinine 1.36H, Sodium Level 141, Potassium Level 3.6, Chloride Level 106, Carbon Dioxide Level 29, Calcium Level 7.7L, Phosphorus Level 2.9#, Magnesium Level 1.9 CBC/BMP Laboratory Tests 09/09/18 07:28 Calcium Level 7.7 L Allergies Coded Allergies: No Known Allergies (Unverified , 09/07/18) Home Medications Scheduled Hydrochlorothiazide (Hydrochlorothiazide) 25 Mg Tab, 25 MG PO DAILY, (Reported) Insulin Detemir (Levemir) 1 Units/0.01 Ml Susp, 25 UNITS SC QHS, #3 Insulin Human Lispro (Humalog) 1 Units/0.01 Ml Inj, 0 UNITS SC AC, #3 0-100: 0 units, 101-150: 2 units, 151-200: 4 units, 201-250: 6 units, 251- 300: 8 units, 301-350: 10 units, 351-400: 12 units, >400: 14 units Insulin Human Lispro (Humalog) 1 Units/0.01 Ml Inj, 0 UNITS SC QHS, #3 0-250: 0 units, 251-300: 2 Units, 301-350: 4 units, 351-400: 6 units, >400: 8 units Lisinopril (Lisinopril) 40 Mg Tab, 40 MG PO DAILY, (Reported) Potassium Phos/Sodium Phos (Phos-Nak Powder (Neutra Phos) 280-160-250 mg) 1 Pkt Powd, 1 PKT PO QID, #3 Quetiapine Fumerate (Seroquel) 400 Mg Tab, 400 MG PO QPM, (Reported) GME ATTESTATION GME ATTESTATION My faculty preceptor for this patient encounter was physically present during the encounter and was fully available. All aspects of the patient interview, examination, medical decision making process, and medical care plan development were reviewed and approved by the faculty preceptor. The faculty preceptor is aware and concurs with the plan as stated in the body of this note and will attest to such by his/her cosignature. YEHUDA WETZEL DO Sep 09, 2018 08:45
[2018-09-09] MEDS ORDERED: INFLUENZA QUADRIVALENT PF VACCINE 0.5ML SYRINGE (90686) IM ONE (09:00)
[2018-09-09] MEDS ORDERED: LEVEMIR (INSULIN DETEMIR) 1 UNITS/0.01ML SC SCH (09:00)
[2018-09-09] MEDS ORDERED: QUEtiapine FUMARATE 100 MG TAB PO ONE (10:45)
--- NOTE | 2018-09-09 11:25 | MHHPE ---
DATE OF ADMISSION: 09/08/2018 IDENTIFYING DATA: He is a 48-year-old -[place] male, single, father of three children, supported by Social Security Disability, was admitted on 9 legal status for suicidal ideation. HISTORY OF PRESENT ILLNESS: The patient initially came for help regarding his psychiatric issues. However, since blood sugar was above 1000, he was admitted to medical unit. He was stabilized and sent back to inpatient mental health unit (IM). Reportedly, the patient was admitted to a hospital in [place] 2 months ago. After the discharge, he moved with a friend. He was unable to get his medications because of a higher copay. For a month, he was being noncompliant with his medications, psychiatric as well as medical; and he decompensated. His friends brought him to the hospital. The patient reports he has been diagnosed with schizoaffective disorder and posttraumatic stress disorder (PTSD). Started hearing voices when he was a teenager. It worsened when he was in his twenties. He had several hospitalizations. He reports now he hears voices. They are command hallucinations, asking him to kill himself. He has plans either to jump off the bridge because of the command hallucination or jump in front of the traffic. His stressors being his sister and mother last year, his father is old (he is 89 years old), financial issues. The patient also has PTSD. 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 He reports of cleaning up the human body parts and other kinds of debris. He has nightmares and sweating during the night. He has flashbacks. His current medications: - Seroquel 100 mg in the a.m. and 400 mg at night - gabapentin 300 mg three times daily which helps him with his voices and his neuropathy PAST PSYCHIATRIC HISTORY: The patient has multiple psychiatric hospitalizations, more than twenty. He was on various medications like Seroquel, risperidone, Abilify, Zoloft, Haldol, BuSpar. SUICIDAL HISTORY: He attempted suicide once jumping off the building, once tried to jump in front of the traffic. DRUG/ALCOHOL HISTORY: The patient has extensive drug/alcohol issues. Drinks alcohol, reports 2-3 times a month. Probably the patient is minimizing. Each time he drinks about nearly a bottle of whiskey. He has history of amphetamine and cocaine abuse. He two rehabilitation treatments. The patient wants to go to rehabilitation. LEGAL HISTORY: Denies legal problems. MEDICAL HISTORY: The patient has history of diabetes mellitus. FAMILY HISTORY: Mother has history of schizophrenia. PERSONAL HISTORY: He was born and raised in [place] and had completed his GED. 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 Currently, he is supported by [facility]. Denies any history of physical or sexual abuse. MENTAL STATUS EXAMINATION: Appearance: Well groomed with clean dress. Behavior is cooperative. Eye contact is normal. Speech spontaneous, conversant. Mood is depressed, worried. Affect is constricted, sad, and tearful. Thought content: Complains of auditory and visual hallucinations. Thought process: Linear, goal-directed, coherent. Cognition: Alert, oriented to time, place, and person. Memory is intact. Insight and judgment are fair to limited. REVIEW OF SYSTEMS: CONSTITUTIONAL: Negative for night sweats and weight loss. HEENT: Negative for epistaxis, headache, hearing loss, sore throat. RESPIRATORY: No cough. No shortness of breath or wheezing. CARDIOVASCULAR: Negative for chest pain, dyspnea. GASTROINTESTINAL: No abdominal pain. No change in bowel habits. GENITOURINARY: No dysuria. No trouble voiding. No hematuria. MUSCULOSKELETAL: Negative for gait disturbances, joint pain, joint swelling, muscle pain. NEUROLOGICAL: Negative for gait disturbances, numbness, tingling, seizure. All other systems negative. VITAL SIGNS: Temperature 98.2, pulse is 62, respiratory rate is 14, blood pressure is 113/55. LABORATORIES: Chemistry: Blood glucose is 365 in the morning. We will get his fingersticks three times daily. Other parameters during the medical side was within normal limits. DIAGNOSES: 1. Schizophrenia, chronic, paranoid type. Rule out schizoaffective disorder, bipolar type. 2. Posttraumatic stress disorder. 3. Diabetes mellitus. TREATMENT RECOMMENDATION: 1. Admit to [facility]. 2. He will be followed by PA for medical needs. Fingerstick twice daily. 3. The patient will be seen by [facility] and case management. 4. The patient will be placed on appropriate precautions, which will include all precautions,15-minute check suicide precaution. 5. The patient will participate in appropriate activities, including individual therapy, group therapy, and milieu therapy. 6. Add Seroquel 100 mg in the a.m. and 400 mg at night. Continue gabapentin 300 mg three times daily. ESTIMATED LENGTH OF STAY: 4-5 days.
[2018-09-09] MEDS ORDERED: hydrOXYzine 25 MG TAB PO PRN (12:45)
[2018-09-09 18:00] VITALS: BP 117/60
[2018-09-09] MEDS: LEVEMIR (INSULIN DETEMIR) 1 UNITS/0.01ML SC SCH (21:56)
[2018-09-09] MEDS: QUEtiapine FUMARATE 200 MG TAB PO SCH (22:37)
[2018-09-10] MEDS: NICOTINE POLACRILEX 2 MG GUM PO PRN ×7 (06:20→22:13)
[2018-09-10] MEDS: HumaLOG INSULIN (NovoLOG) PER UNIT SC SCH ×4 (06:20→21:00)
[2018-09-10 06:54] VITALS: BP 139/73
[2018-09-10] MEDS: GABAPENTIN 300 MG CAP PO SCH ×3 (08:06→21:37)
[2018-09-10] MEDS: LISINOPRIL 40 MG TAB PO SCH (08:06)
[2018-09-10] MEDS: hydroCHLOROthiazide 25 MG TAB PO SCH (08:06)
[2018-09-10] MEDS: BACITRACIN OINT 30GM TOP SCH ×2 (08:06→22:35)
[2018-09-10] MEDS ORDERED: LEVEMIR (INSULIN DETEMIR) 1 UNITS/0.01ML SC ONE (08:45)
[2018-09-10] MEDS ORDERED: LEVEMIR (INSULIN DETEMIR) 1 UNITS/0.01ML SC SCH (09:00)
[2018-09-10] MEDS: QUEtiapine FUMARATE 100 MG TAB PO SCH ×2 (09:05→21:37)
[2018-09-10 09:55] LABS: BLOOD UREA NITROGEN 17 MG/DL (7-18); CALCIUM LEVEL 7.3 MG/DL (8.5-10.1); CARBON DIOXIDE LEVEL 29 MEQ/L (21-32); CHLORIDE LEVEL 104 MEQ/L (98-107); CREATININE FOR GFR 1.46 MG/DL (0.70-1.30); GLOMERULAR FILTRATION RATE > 60.0 (>60); GLUCOSE, FASTING 322 MG/DL (70-100); SODIUM LEVEL 138 MEQ/L (136-145)
[2018-09-10 10:22] LABS: HEMOGLOBIN A1c 13.6 %
--- NOTE | 2018-09-10 11:28 | HPE ---
DATE OF ADMISSION: 09/08/2018 HISTORY OF PRESENT ILLNESS: Please refer to the psychiatric history and evaluation for further details on this admission. This examination and history is intended for medical issues which may need treatment, followup or consultation on this 48-year-old male who was transferred from the ICU after having been treated for diabetic ketoacidosis (DKA) with an elevated blood sugar in the emergency room over 1000, and elevated anion gap. Patient was treated, stabilized and transferred to the mental health unit as he had had suicidal ideations and voices telling him to kill himself. PRIMARY CARE PROVIDER: Does not have a local primary care provider. ALLERGIES: No known allergies. SOCIAL HISTORY: He is single. He smokes 1 to 2 packs of cigarettes per day. He occasionally drinks alcohol. He has used IV cocaine and smoked marijuana. FAMILY HISTORY: Noncontributory. ALLERGIES: No known allergies. PAST MEDICAL HISTORY: Insulin dependent diabetes. Hypertension. Bipolar disorder. Post-traumatic stress disorder (PTSD). Schizophrenic disorder. He has had multiple psychiatric hospitalizations. PAST SURGICAL HISTORY: None. HOME MEDICATIONS: He has been in a hospital in [place]. He does not have a local primary care provider. Currently states: - hydrochlorothiazide 25 mg daily - he states Lantus 50 units at bedtime - NovoLog 25 units before each meal - lisinopril 40 mg by mouth daily - Seroquel 400 mg by mouth every p.m. - potassium phosphate soda 1 packet four times a day - gabapentin 300 mg by mouth three times a day - amlodipine unknown dose daily - thiamine 100 mg daily - Remeron unknown strength at bedtime - Abilify unknown strength daily REVIEW OF SYSTEMS: 11-systems review was done. His only complaint today is of soreness at healing burn to his left hand that he has had about a week and a half. No drainage otherwise. No complaint of headache. No blurry or double vision. No fever, no chills, no tinnitus, no hoarseness. No difficulty swallowing. No lightheadedness or vertigo. Cardiovascular: No complaints of chest pain, shortness of breath, palpitations or edema. Respiratory: No current cough, no sputum production. No hemoptysis. No orthopnea, no wheeze. GI: No nausea, vomiting or diarrhea. No hematochezia. No melena. No complaints of abdominal pain. : No hematuria, dysuria or frequency. Musculoskeletal: No joint redness or swelling. Endocrine history: Insulin dependent diabetes. Hematological: No history of anemia. Neurological: Has some neuropathy. Takes gabapentin. Psychiatric: See psychiatric HPI. PHYSICAL EXAMINATION: 48-year-old cooperative male in no acute distress. Vital signs stable. Blood pressure 117/60, pulse 74, respirations 16, temperature 98.9, height 69 inches, weight 79.1 kg. BMI 25. The patient is alert and oriented times three. Pupils equal and reactive to light. Extraocular movements intact. Cornea and sclera clear. Conjunctiva normal. No facial asymmetry. Pharynx, tongue, and gums pink and moist. Tongue is midline. Neck is supple, without lymphadenopathy. No thyromegaly. No goiter. Carotids 2+ without bruit. Chest clear to auscultation, without wheeze or retraction. Heart is regular. Abdomen benign. Bowel sounds positive. /Rectal: Not done. Extremities show no cyanosis, clubbing or edema. Posterior hand between the index and thumb show a raised healing burn. No drainage. Slightly open. Hand grasps equal. Peripheral pulses equal and palpable bilaterally. Skin is warm and dry. IMPRESSION AND PLAN: 1. Insulin dependent diabetes type 2. Patient had hospitalist consult. They have added daily a.m. Levemir. Continue on sliding scale. Adjustment per hospitalist. 2. History of hypertension. Currently stable on lisinopril and hydrochlorothiazide. 3. Smoking. Patch available. 4. Psychiatric: Plan per psychiatry. EDUCATION: Patient requests and will need to be taught how to use the new glucose monitor and strips that he has in his belongings. He will be taught self fingersticks blood sugars under supervision to ensure that he can perform them adequately when he is discharged. He states he has a new monitor and strips and does not know how to use it. Healing burn left hand. Bacitracin twice a day. EKG on file. Sinus tachycardia, 101. Possible left atrial enlargement. Nonspecific T wave abnormality.
--- NOTE | 2018-09-10 17:05 | IPNPDOC ---
Subjective Date Seen The patient was seen on 09/10/18. Subjective Chief Complaint/HPI Patient seen and examined at the bedside. Denies any acute complaints at this time. States that he hasn't been taking his insulin regimen for the last 2 weeks at least. Notes that he does not know how to use his blood glucose monitor. Otherwise, no acute overnight events noted. Objective Physical Examination General Exam: Positive: Alert, Cooperative, No Acute Distress ENT Exam: Positive: Atraumatic, Mucous membr. moist/pink Neck Exam: Negative: JVD Chest Exam: Positive: Clear to auscultation, Normal air movement Heart Exam: Positive: Rate Normal, Normal S1, Normal S2 Abdomen Exam: Positive: Soft; Negative: Tenderness Extremity Exam: Negative: Tenderness, Swelling Assessment /Plan Plan/VTE VTE Prophylaxis Ordered?: No VTE Exclusion Mechanical Proph: Low Risk for VTE Plan IDDM2 with neuropathy HgbA1c noted to be 13.6% Insulin regimen being adjusted to control blood sugars accordingly I had an extensive conversation with the patient at the bedside regarding the importance of remaining adherent to his insulin regimen. We will continue to reinforce this with the patient as he has a history of nonadherence. Hypertension Cont Lisinopril, HCTZ Bipolar Disorder / PTSD / Schizoaffective disorder Cont as per Psych Nicotine Use Disorder Nicotine patch DVT prophylaxis OOB, Ambulation VS, I&O, 24H, Fishbone Vital Signs/I&O Vital Signs Date Time Temp Pulse Resp B/P (MAP) Pulse Ox O2 Delivery O2 Flow Rate FiO2 09/10/18 06:54 97.6 81 14 139/73 (95) 09/08/18 20:13 98 Laboratory Data 24H LABS Laboratory Tests 2 09/09/18 21:53: Bedside Glucose (Misc Panel) 346H 09/10/18 06:12: Bedside Glucose (Misc Panel) 285H 09/10/18 08:49: Anion Gap 5L, Glomerular Filtration Rate > 60.0, Estimated Mean Plasma Glucose 344H, Hemoglobin A1c 13.6, Blood Urea Nitrogen 17, Creatinine 1.46H, Sodium Level 138, Potassium Level 4.0, Chloride Level 104, Carbon Dioxide Level 29, Calcium Level 7.3L 09/10/18 11:26: Bedside Glucose (Misc Panel) 352H 09/10/18 16:34: Bedside Glucose (Misc Panel) 276H CBC/BMP Laboratory Tests 09/10/18 08:49 Calcium Level 7.3 L PEDRO LUIS SORENSEN MD Sep 10, 2018 17:05
[2018-09-10 18:00] VITALS: BP 142/90
--- NOTE | 2018-09-10 19:19 | MHIPN ---
DATE: 09/10/2018 SUBJECTIVE: "I have been hearing voices, which are feeble, but they are not commanding. I have nightmares and sweats." "I have mood swings, for which the Depakote has helped me in the past." OBJECTIVE: He is a 48-year-old -[place]in[place] male, single, father of three children and supported by Social Security Disability, who was admitted because of suicidal ideas as he was noncompliant with his medications. He has a history of multiple psychiatric hospitalizations and significant drug/alcohol use history. He also has a history of suicide attempt in the past. Currently, he is back on his medications. I am titrating the dose of his medication. MENTAL STATUS EXAMINATION: Appearance: Somewhat disheveled, somewhat drowsy. He is cooperative, made good eye contact. Speech is conversant. Mood is depressed. Affect is somewhat constricted. Thought content: Complains of auditory and visual hallucinations. Thought process: Linear, goal directed. Oriented to time, place and person. Memory is intact. Insight and judgment are fair to limited. VITAL SIGNS: Temperature 97.6, pulse 81, respiratory rate is 14, blood pressure 139/73. LABORATORIES: His glucose was 344, which will be addressed by the equipment records supervisor. DIAGNOSES: 1. Schizophrenia, chronic paranoid type. 2. Posttraumatic stress disorder (PTSD). 3. Polysubstance dependence. 4. Diabetes mellitus. PLAN: Add Depakote 500 mg at night and titrate the dose. Increase Seroquel to 500 mg at night and 100 mg in the morning. Consider adding prazosin if the patient continues to have PTSD symptoms. Estimated length of stay is 4 to 5 days.
[2018-09-10] MEDS: DIVALPROEX 500MG *ER* TAB PO SCH (21:36)
[2018-09-10] MEDS: QUEtiapine FUMARATE 200 MG TAB PO SCH (21:37)
[2018-09-10] MEDS: LEVEMIR (INSULIN DETEMIR) 1 UNITS/0.01ML SC SCH (22:33)
[2018-09-11] MEDS: NICOTINE POLACRILEX 2 MG GUM PO PRN ×7 (01:37→21:08)
[2018-09-11 06:23] VITALS: BP 138/86
[2018-09-11] MEDS: HumaLOG INSULIN (NovoLOG) PER UNIT SC SCH ×4 (07:07→21:36)
[2018-09-11] MEDS: GABAPENTIN 300 MG CAP PO SCH ×3 (09:44→21:03)
[2018-09-11] MEDS: hydroCHLOROthiazide 25 MG TAB PO SCH (09:45)
[2018-09-11] MEDS: BACITRACIN OINT 30GM TOP SCH ×2 (09:45→21:33)
[2018-09-11] MEDS: LISINOPRIL 40 MG TAB PO SCH (09:45)
[2018-09-11] MEDS: LEVEMIR (INSULIN DETEMIR) 1 UNITS/0.01ML SC SCH ×2 (09:46→21:37)
[2018-09-11] MEDS: QUEtiapine FUMARATE 100 MG TAB PO SCH ×2 (09:47→21:51)
--- NOTE | 2018-09-11 13:09 | MHIPN ---
DATE OF SERVICE: 09/11/2018 SUBJECTIVE: "I'm better, but still I hear voices. The voices ask me to hurt myself." OBJECTIVE: He is a 48-year-old -Kitt[place] male, single, father of three children, supported by Social Security Disability, who was admitted because of suicidal ideas. He was noncompliant with his medications. He has a history of schizophrenia and posttraumatic stress disorder (PTSD) and has history of prior suicide attempts. MENTAL STATUS EXAMINATION: Casually dressed. Appearance: Somewhat disheveled. Cooperative. Made good eye contact. Pleasant. Speech conversant. Mood is depressed. Affect is constricted. Thought process: Linear, goal-directed. Thought content: Complains of some vague suicidal thoughts in the past. Currently, he complains of auditory hallucinations, which are commanding in nature. Oriented to time, place, and person. Memory is intact. Insight limited. VITAL SIGNS: Temperature 98, pulse is 70, respiration is 12, blood pressure 138/86. DIAGNOSES: 1. Schizophrenia, chronic, paranoid type. 2. Posttraumatic stress disorder. 3. Polysubstance dependence. 4. Diabetes mellitus. ASSESSMENT: The patient continues to hear voices. Has some of the symptoms of PTSD, like flashbacks and night dreams are persisting. The plan is to add prazosin 1 mg at bedtime and monitor him. ESTIMATED LENGTH OF STAY: 3-4 days. [facility]
--- NOTE | 2018-09-11 13:59 | IPNPDOC ---
Subjective Date Seen The patient was seen on 09/11/18. Subjective Chief Complaint/HPI Patient seen and examined at the bedside. Denies any acute overnight events. Notes that he would like to be taught how to use his glucose monitoring device so he can better check his blood sugar levels at home. Objective Physical Examination General Exam: Positive: Alert, Cooperative, No Acute Distress ENT Exam: Positive: Atraumatic, Mucous membr. moist/pink Neck Exam: Negative: JVD Chest Exam: Positive: Clear to auscultation, Normal air movement Heart Exam: Positive: Rate Normal, Normal S1, Normal S2 Abdomen Exam: Positive: Soft; Negative: Tenderness Extremity Exam: Negative: Tenderness, Swelling Assessment /Plan Plan/VTE VTE Prophylaxis Ordered?: No VTE Exclusion Mechanical Proph: Low Risk for VTE Plan IDDM2 with neuropathy HgbA1c noted to be 13.6% I had an extensive conversation with the patient at the bedside regarding the importance of remaining adherent to his insulin regimen. We will continue to reinforce this with the patient as he has a history of nonadherence. Nursing order placed to teach the patient how to use his glucose monitoring device. We'll continue to monitor his glucose levels and titrate insulin dosing accordingly. Hypertension Cont Lisinopril, HCTZ Bipolar Disorder / PTSD / Schizoaffective disorder Cont as per Psych Nicotine Use Disorder Nicotine patch DVT prophylaxis OOB, Ambulation VS, I&O, 24H, Fishbone Vital Signs/I&O Vital Signs Date Time Temp Pulse Resp B/P (MAP) Pulse Ox O2 Delivery O2 Flow Rate FiO2 09/11/18 06:23 98.0 70 12 138/86 (103) 09/08/18 20:13 98 Laboratory Data 24H LABS Laboratory Tests 2 09/10/18 16:34: Bedside Glucose (Misc Panel) 276H 09/10/18 21:34: Bedside Glucose (Misc Panel) 224H 09/11/18 06:25: Bedside Glucose (Misc Panel) 388H 09/11/18 11:37: Bedside Glucose (Misc Panel) 273H PEDRO LUIS SORENSEN MD Sep 11, 2018 13:59
[2018-09-11] MEDS ORDERED: PRAZOSIN 1 MG CAP PO SCH (17:30)
[2018-09-11 18:03] VITALS: BP 143/87
[2018-09-11] MEDS: DIVALPROEX 500MG *ER* TAB PO SCH (21:03)
[2018-09-11] MEDS: QUEtiapine FUMARATE 200 MG TAB PO SCH (21:51)
[2018-09-12] MEDS: NICOTINE POLACRILEX 2 MG GUM PO PRN ×7 (00:05→22:00)
[2018-09-12] MEDS: HumaLOG INSULIN (NovoLOG) PER UNIT SC SCH ×4 (06:34→21:10)
[2018-09-12 06:47] VITALS: BP 150/86
[2018-09-12] MEDS: BACITRACIN OINT 30GM TOP SCH ×2 (08:26→21:12)
[2018-09-12] MEDS: LISINOPRIL 40 MG TAB PO SCH (08:27)
[2018-09-12] MEDS: hydroCHLOROthiazide 25 MG TAB PO SCH (08:27)
[2018-09-12] MEDS: QUEtiapine FUMARATE 100 MG TAB PO SCH ×2 (08:27→21:37)
[2018-09-12] MEDS: GABAPENTIN 300 MG CAP PO SCH ×3 (08:27→21:08)
[2018-09-12] MEDS: LEVEMIR (INSULIN DETEMIR) 1 UNITS/0.01ML SC SCH ×2 (08:29→21:11)
--- NOTE | 2018-09-12 13:47 | IPN ---
DATE: 09/12/2018 SUBJECTIVE: Patient is seen and examined in inpatient mental health unit today. The patient is sleeping comfortably in bed during the encounter. The patient denies any acute complaints. Denies any distress. OBJECTIVE: VITAL SIGNS: Temperature 97.2, pulse 101, respirations 16, blood pressure 150/86. GENERAL: No signs of acute distress. Patient is comfortable. HEENT: Normocephalic, atraumatic. Extraocular motors grossly intact. CARDIOVASCULAR: Positive S1 and S2. Regular rate. LUNGS: Clear to auscultation bilaterally. ABDOMEN: Soft, nontender. EXTREMITIES: No edema appreciated. Most recent laboratory data done on 09/10/2018 showed sodium 138, potassium 4.1, carbon dioxide 29, BUN 17, creatinine 1.46, GFR is 26, fasting glucose 322, A1c 13.6, calcium 7.3. ASSESSMENT/PLAN: 1. Insulin dependent diabetes. A1c of 13.6. Currently on Levemir covering with sliding scale. On consistent carbohydrate diet. He is on Neurontin for neuropathy. 2. Hypertension. On hydrochlorothiazide and lisinopril. 3. Bipolar/posttraumatic stress disorder (PTSD)/schizoaffective disorder. Management per primary psychiatric team. 4. Tobacco usage. On nicotine gum. 5. Deep vein thrombosis (DVT) prophylaxis. Encourage ambulation.
--- NOTE | 2018-09-12 15:51 | MHIPN ---
DATE: 09/12/2018 SUBJECTIVE: "I could not sleep yesterday, I still hear voices." OBJECTIVE: A 48-year-old -Surinamese male, single, father of three children, supported by social security disability, was admitted because of suicidal ideas. He was noncompliant with his medication. He has a history of multiple psychiatric hospitalizations and also drug and alcohol use history. He also has a history of suicidal thoughts. He is back on his medication and I am titrating the dose. MENTAL STATUS EXAMINATION: Appearance: Well-groomed. His personal hygiene is good. Cooperative. Made good eye contact. Speech is conversant. Mood is depressed. Affect is somewhat constricted. Denies any suicidal or homicidal ideas. Complains of some auditory hallucinations which are mild which are not commanding. Thought Process: Linear, goal-directed. Oriented to time, place and person. Memory is intact. Insight and judgment are fair to limited. DIAGNOSES: 1. Schizophrenia, chronic, paranoid type. 2. Posttraumatic stress disorder. 3. Polysubstance dependence. 4. Diabetes mellitus. VITAL SIGNS: Temperature 97.2, pulse is 101, respiratory rate is 16, blood pressure is 150/86. MEDICATIONS: - prazosin 1 mg at night - Depakote 500 mg at night - quetiapine 500 mg at night and 100 mg daily - gabapentin 300 mg three times a day PLAN: Continue current medication, titrate the dose. Continue individual and group therapy. Continuity of care provided with social media specialist, nursing staff, and treatment team. ESTIMATED LENGTH OF STAY: 3-4 days.
[2018-09-12 18:00] VITALS: BP 146/80
[2018-09-12] MEDS ORDERED: PRAZOSIN 1 MG CAP PO SCH (21:00)
[2018-09-12] MEDS: DIVALPROEX 500MG *ER* TAB PO SCH (21:09)
[2018-09-12] MEDS: QUEtiapine FUMARATE 200 MG TAB PO SCH (21:37)
[2018-09-13] MEDS: NICOTINE POLACRILEX 2 MG GUM PO PRN ×9 (04:25→22:59)
[2018-09-13] MEDS: HumaLOG INSULIN (NovoLOG) PER UNIT SC SCH ×4 (06:43→21:00)
[2018-09-13 07:00] VITALS: BP 144/79
[2018-09-13] MEDS: LEVEMIR (INSULIN DETEMIR) 1 UNITS/0.01ML SC SCH ×2 (08:22→20:59)
[2018-09-13] MEDS: QUEtiapine FUMARATE 100 MG TAB PO SCH ×2 (08:23→22:55)
[2018-09-13] MEDS: GABAPENTIN 300 MG CAP PO SCH (08:23)
[2018-09-13] MEDS: hydroCHLOROthiazide 25 MG TAB PO SCH (08:23)
[2018-09-13] MEDS: LISINOPRIL 40 MG TAB PO SCH (08:23)
[2018-09-13] MEDS: BACITRACIN OINT 30GM TOP SCH ×2 (08:25→20:53)
--- NOTE | 2018-09-13 13:00 | MHIPN ---
DATE: 09/13/2018 SUBJECTIVE: "I did not sleep well. I woke up. I had nightmares and I still have hallucinations, but they are not commanding, and my neuropathic pain has increased." OBJECTIVE: He is a 48-year-old -Indian male, single, father of three children, supported by social security disability, who was admitted because of suicidal ideas. He was noncompliant with his medications. He has a history of multiple psychiatric hospitalizations and significant drug and alcohol use history. He also has a history of suicide attempt in the past. The patient has significant medical problems, which is diabetes mellitus. The patient is noncompliant with his medications and follow-up with his plaster lather. He is being followed up by the plaster lather here. MENTAL STATUS EXAMINATION: Appearance casually dressed. Cooperative. Made good eye contact. Psychomotor activity is normal. Mood is mildly depressed. Affect is constricted. Speech rate, rhythm and volume are good, soft. Thought process linear, goal-directed. Thought content denied any suicidal or homicidal ideas. Complained of some hallucinations, which are not commanding. Insight and judgment are fair to limited. Memory immediate, remote and recent are good. He is alert and oriented to time, place and person. DIAGNOSES: 1. Schizophrenia, chronic, paranoid type. 2. Posttraumatic stress disorder. 3. Polysubstance dependence. 4. Diabetes mellitus. His blood glucose was high today at 454, and he was given insulin. It has come down to 284 now. The plaster lather is titrating the dose of insulin. PLAN: Increase his prazosin to 2 mg at night, increase his gabapentin to 400 mg three times a day, and increase his Seroquel to 150 mg in the a.m. and 400 mg at night.
[2018-09-13] MEDS: GABAPENTIN 400 MG CAP PO SCH ×2 (16:03→20:57)
[2018-09-13 18:00] VITALS: BP 122/86
--- NOTE | 2018-09-13 18:10 | IPNPDOC ---
Text Note Date of Service The patient was seen on 09/13/18. NOTE SUBJECTIVE: Patient is seen and examined in inpatient mental health unit today. The patient denies any acute complaints. Denies any distress. OBJECTIVE: VITAL SIGNS: Listed below. GENERAL: No signs of acute distress. Patient is comfortable. HEENT: Normocephalic, atraumatic. Extraocular motors grossly intact. CARDIOVASCULAR: Positive S1 and S2. Regular rate. LUNGS: Clear to auscultation bilaterally. ABDOMEN: Soft, nontender. EXTREMITIES: No edema appreciated. Most recent laboratory data done on 09/10/2018 showed sodium 138, potassium 4.1, carbon dioxide 29, BUN 17, creatinine 1.46, GFR is 26, fasting glucose 322, A1c 13.6, calcium 7.3. ASSESSMENT/PLAN: #. Insulin dependent diabetes. - A1c of 13.6. Patient's home medication reviewed. - Adjust Levemir accordingly. On sliding scale. On consistent carbohydrate diet. On Neurontin for neuropathy. #. Hypertension. On hydrochlorothiazide and lisinopril. #. Bipolar/posttraumatic stress disorder (PTSD)/schizoaffective disorder. Management per primary psychiatric team. #. Tobacco usage. On nicotine gum. #. Deep vein thrombosis (DVT) prophylaxis. Encourage ambulation. VS,Fishbone, I+O VS, Fishbone, I+O Vital Signs Date Time Temp Pulse Resp B/P (MAP) Pulse Ox O2 Delivery O2 Flow Rate FiO2 09/13/18 07:00 97.9 74 18 144/79 (100) 09/08/18 20:13 98 KRISTIN PINA DO Sep 13, 2018 18:10
[2018-09-13] MEDS: DIVALPROEX 500MG *ER* TAB PO SCH (20:58)
[2018-09-13] MEDS: PRAZOSIN 1 MG CAP PO SCH (20:58)
[2018-09-13] MEDS: QUEtiapine FUMARATE 200 MG TAB PO SCH (22:54)
[2018-09-14] MEDS: NICOTINE POLACRILEX 2 MG GUM PO PRN ×8 (05:56→21:34)
[2018-09-14] MEDS: HumaLOG INSULIN (NovoLOG) PER UNIT SC SCH ×4 (06:24→20:57)
[2018-09-14 06:59] VITALS: BP 129/84
[2018-09-14] MEDS: GABAPENTIN 400 MG CAP PO SCH ×3 (08:25→20:55)
[2018-09-14] MEDS: hydroCHLOROthiazide 25 MG TAB PO SCH (08:25)
[2018-09-14] MEDS: LISINOPRIL 40 MG TAB PO SCH (08:25)
[2018-09-14] MEDS: QUEtiapine FUMARATE 50 MG TAB PO SCH (08:26)
[2018-09-14] MEDS: BACITRACIN OINT 30GM TOP SCH ×2 (09:00→20:57)
[2018-09-14] MEDS ORDERED: LEVEMIR (INSULIN DETEMIR) 1 UNITS/0.01ML SC SCH ×2 (09:00→21:00)
--- NOTE | 2018-09-14 11:11 | MHIPN ---
DATE: 09/14/2018 SUBJECTIVE: " I still hear voices but they are less frequent. I am looking into possibilities of going to a rehab." OBJECTIVE: He is a 48-year-old -Chilean male, single, father of three children supported by social security disability, admitted because of suicidal thoughts. He is noncompliant with his medications. He has multiple psychiatric hospitalizations. He also has drug-alcohol history. Currently, he is less depressed. Denies any suicidal thoughts, however, complains of auditory hallucinations which are not commanding in nature. MENTAL STATUS EXAMINATION: Well-groomed. Personalizing is fair. Cooperative. Makes good eye contact. Psychomotor activity is normal. Speech is conversant. Mood is depressed. Affect is more constricted. Denies any suicidal or homicidal ideas. Complains of some auditory or visual hallucination, which are mild but are not commanding. Thought process linear, goal-directed, oriented to time, place and person. Memory is intact. Insight and judgment are fair. DIAGNOSES: Schizophrenia, chronic, paranoid type. Posttraumatic stress disorder. Polysubstance dependence. Diabetes mellitus. VITAL SIGNS: Temperature 97.9, pulse 84, respiratory rate 14, blood pressure 129/84. PLAN: Continue current medications. Possibility of getting into a rehab will be discussed with socially responsible investment adviser. CURRENT MEDICATIONS: - quetiapine 150 mg once daily and 500 mg at night - Depakote 500 mg at night - prazosin 2 mg at night - gabapentin 400 mg three times a day LABS: His blood glucose was 292. Medical corrections counselor is aware of it.
--- NOTE | 2018-09-14 13:18 | IPNPDOC ---
Text Note Date of Service The patient was seen on 09/14/18. NOTE SUBJECTIVE: Patient is seen and examined in inpatient mental health unit today. Patient's outpatient insulin regimen discussed. He states his glucose levels were between 100-200. However, his A1C was 13.6. The patient denies any acute complaints. No nausea or vomiting. No abdominal pain. Patient has good oral intake. OBJECTIVE: VITAL SIGNS: Listed below. GENERAL: No signs of acute distress. Patient is comfortable. HEENT: Normocephalic, atraumatic. Extraocular motors grossly intact. CARDIOVASCULAR: Positive S1 and S2. Regular rate. LUNGS: Clear to auscultation bilaterally. ABDOMEN: Soft, nontender. EXTREMITIES: No edema appreciated. Most recent laboratory data done on 09/10/2018 showed sodium 138, potassium 4.1, carbon dioxide 29, BUN 17, creatinine 1.46, GFR is 26, fasting glucose 322, A1c 13.6, calcium 7.3. ASSESSMENT/PLAN: #. Insulin dependent diabetes. - A1c of 13.6. Patient's home medication reviewed. - Continue titrating Levemir as needed. On sliding scale. On consistent carbohydrate diet. On Neurontin for neuropathy. #. Hypertension. - On hydrochlorothiazide and lisinopril. BP in good range. #. Bipolar/posttraumatic stress disorder (PTSD)/schizoaffective disorder. - Management per primary psychiatric team. #. Tobacco usage. On nicotine gum. #. Deep vein thrombosis (DVT) prophylaxis. Encourage ambulation. VS,Fishbone, I+O VS, Fishbone, I+O Vital Signs Date Time Temp Pulse Resp B/P (MAP) Pulse Ox O2 Delivery O2 Flow Rate FiO2 09/14/18 06:59 97.9 84 14 129/84 (99) 09/08/18 20:13 98 KRISTIN PINA DO Sep 14, 2018 13:18
[2018-09-14 18:00] VITALS: BP 144/81
[2018-09-14] MEDS: DIVALPROEX 500MG *ER* TAB PO SCH (20:55)
[2018-09-14] MEDS: PRAZOSIN 1 MG CAP PO SCH (20:55)
[2018-09-14] MEDS: QUEtiapine FUMARATE 200 MG TAB PO SCH (21:33)
[2018-09-14] MEDS: QUEtiapine FUMARATE 100 MG TAB PO SCH (21:33)
[2018-09-15] MEDS: NICOTINE POLACRILEX 2 MG GUM PO PRN ×9 (02:05→23:15)
[2018-09-15] MEDS: HumaLOG INSULIN (NovoLOG) PER UNIT SC SCH ×4 (06:31→20:37)
[2018-09-15 06:49] VITALS: BP 140/83
[2018-09-15] MEDS: LISINOPRIL 40 MG TAB PO SCH (08:49)
[2018-09-15] MEDS: hydroCHLOROthiazide 25 MG TAB PO SCH (08:51)
[2018-09-15] MEDS: QUEtiapine FUMARATE 50 MG TAB PO SCH (08:52)
[2018-09-15] MEDS: GABAPENTIN 400 MG CAP PO SCH ×3 (08:52→20:26)
[2018-09-15] MEDS: BACITRACIN OINT 30GM TOP SCH ×2 (08:53→20:34)
[2018-09-15] MEDS ORDERED: LEVEMIR (INSULIN DETEMIR) 1 UNITS/0.01ML SC SCH (09:00)
--- NOTE | 2018-09-15 10:31 | MHIPNPDOC ---
[facility] Progress Note Progress Note DATE OF SERVICE: 09/15/18 IDENTIFYING DATA: Per Admit note: "He is a 48-year-old -Kenyan male, single, father of three children, supported by Social Security Disability, was admitted on legal status for suicidal ideation. HISTORY OF PRESENT ILLNESS: The patient initially came for help regarding his psychiatric issues. However, since blood sugar was above 1000, he was admitted to medical unit. He was stabilized and sent back to inpatient mental health unit ([facility] Reportedly, the patient was admitted to a hospital in [place] 2 months ago. After the discharge, he moved with a friend. He was unable to get his medications because of a higher copay. For a month, he was being noncompliant with his medications, psychiatric as well as medical; and he decompensated. His friends brought him to the hospital. The patient reports he has been diagnosed with schizoaffective disorder and posttraumatic stress disorder (PTSD). Started hearing voices when he was a teenager. It worsened when he was in his twenties. He had several hospitalizations. He reports now he hears voices. They are command hallucinations, asking him to kill himself. He has plans either to jump off the bridge because of the command hallucination or jump in front of the traffic. His stressors being his sister and mother last year, his father is old (he is 89 years old), financial issues. The patient also has PTSD. 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 He reports of cleaning up the human body parts and other kinds of debris. He has nightmares and sweating during the night. He has flashbacks." SUBJECTIVE: "I don't hear voices anymore. I'm going to rehab Tuesday." OBJECTIVE: He is a 48-year-old -[place]yan male, single, father of three children supported by social security disability, admitted because of suicidal thoughts. He is noncompliant with his medications. He has multiple psychiatric hospitalizations. He also has drug-alcohol history. Currently, he is less depressed and denies AH. States meds are beneficial and he's tolerating them well. Denies any suicidal thoughts. Motivated toward rehab transfer next Tuesday. MENTAL STATUS EXAMINATION: Well-groomed. Personalizing is fair. Cooperative. Makes good eye contact. Psychomotor activity is normal. Speech is conversant. Mood is less depressed. Affect is less constricted. Denies any suicidal or homicidal ideas. Denies auditory or visual hallucination. Thought process linear, goal- directed, oriented to time, place and person. Memory is intact. Insight and judgment are fair. DIAGNOSES: Schizophrenia, chronic, paranoid type. Posttraumatic stress disorder. Polysubstance dependence. Diabetes mellitus (jewelry consultant is following elevated blood glucose.) PLAN: Continue current medications. Possibility of getting into a rehab will be discussed with social service director. CURRENT MEDICATIONS: - quetiapine 150 mg once daily and 500 mg at night - Depakote 500 mg at night - prazosin 2 mg at night - gabapentin 400 mg three times a day Vital Signs Vital Signs Date Time Temp Pulse Resp B/P (MAP) Pulse Ox O2 Delivery O2 Flow Rate FiO2 09/15/18 06:49 97.9 99 16 140/83 (102) Laboratory Data 24H Labs Laboratory Tests 2 09/14/18 11:52: Bedside Glucose (Misc Panel) 237H 09/14/18 16:35: Bedside Glucose (Misc Panel) 282H 09/15/18 06:13: Bedside Glucose (Misc Panel) 327H Current Medications Current Medications Acetaminophen (Tylenol Tab) 650 mg Q6HP PRN PO HEADACHE or DISCOMFORT; Start 09/08/18 at 18:00 Al Hydrox/Mg Hydrox/Simethicone (Mylanta) 30 ml Q4HP PRN PO HEARTBURN/INDIGESTION Last administered on 09/14/18at 22:17; Start 09/08/18 at 18:00 Bacitracin (Bacitracin Oint) to burn left hand for 7 days BID TOP Last administered on 09/12/18at 21:12; Start 09/10/18 at 09:00; Stop 09/16/18 at 21:01 Divalproex Sodium (Depakote Er) 500 mg QHS PO Last administered on 09/14/18at 20:55; Start 09/10/18 at 21:00 Gabapentin (Neurontin) 300 mg TID PO Last administered on 09/13/18at 08:23; Start 09/08/18 at 21:00; Stop 09/13/18 at 11:58; Status DC Gabapentin (Neurontin) 400 mg TID PO Last administered on 09/15/18 08:52; Start 09/13/18 at 16:00 Glucagon (Glucagon) 1 mg ASDIRECTED PRN SC SEE LABEL COMMENTS; Start 09/08/18 at 18:00 Glucose (Glucose) 16 GM ASDIRECTED PRN PO SEE LABEL COMMENTS; Start 09/08/18 at 18:00 Hydrochlorothiazide (Hydrodiuril) 25 mg DAILY PO Last administered on 09/15/18at 08:51; Start 09/09/18 at 09:00 Hydroxyzine HCl (Atarax) 25 mg Q6HP PRN PO ANXIETY; Start 09/09/18 at 12:45 Insulin Detemir (Levemir Insulin) 10 units DAILY SC ; Start 09/09/18 at 09:00; Stop 09/09/18 at 09:00; Status DC Insulin Detemir (Levemir Insulin) 10 units DAILY SC Last administered on 09/10/18at 08:05; Start 09/10/18 at 09:00; Stop 09/10/18 at 09:00; Status DC Insulin Detemir (Levemir Insulin) 20 units DAILY SC Last administered on 09/13/18 08:22; Start 09/11/18 at 09:00; Stop 09/13/18 at 18:06; Status DC Insulin Detemir (Levemir Insulin) 30 units DAILY SC Last administered on 09/14/18 08:26; Start 09/14/18 at 09:00; Stop 09/15/18 at 07:42; Status DC Insulin Detemir (Levemir Insulin) 30 units QHS SC Last administered on 09/10/18at 22:33; Start 09/08/18 at 21:00; Stop 09/11/18 at 08:56; Status DC Insulin Detemir (Levemir Insulin) 40 units QAM SC Last administered on 09/15/18 08:52; Start 09/15/18 at 09:00 Insulin Detemir (Levemir Insulin) 40 units QHS SC Last administered on 20:59; Start 09/11/18 at 21:00; Stop 09/14/18 at 13:14; Status DC Insulin Detemir (Levemir Insulin) 50 units QHS SC Last administered on 09/14/18at 20:56; Start 09/14/18 at 21:00 Insulin Human Lispro (HumaLOG INSULIN) See Protocol Table AC SC Last ad ministered on 09/15/18at 06:31; Start 09/09/18 at 07:30 Insulin Human Lispro (HumaLOG INSULIN) See Protocol Table QHS SC Last adm inistered on 09/12/18at 21:10; Start 09/08/18 at 21:00 Lisinopril (Prinivil) 40 mg DAILY PO Last administered on 09/15/18at 08:49; Start 09/09/18 at 09:00 Magnesium Hydroxide (Milk Of Magnesia) 30 ml DAILYPRN PRN PO CONSTIPATION; Start 09/08/18 at 18:00 Nicotine (Nicorette) 2 mg Q2HP PRN PO NICOTINE WITHDRAWAL Last administered on 09/11/18at 15:19; Start 09/08/18 at 18:00; Stop 09/11/18 at 18:15; Status DC Nicotine (Nicorette) 4 mg Q2HP PRN PO NICOTINE WITHDRAWAL Last administered on 09/15/18at 08:53; Start 09/11/18 at 18:15 Prazosin HCl (Minipress) 1 mg ACS PO Last administered on 09/11/18at 17:08; Start 09/11/18 at 17:30; Stop 09/12/18 at 17:34; Status DC Prazosin HCl (Minipress) 1 mg QHS PO Last administered on 09/12/18at 21:09; Start 09/12/18 at 21:00; Stop 09/13/18 at 11:57; Status DC Prazosin HCl (Minipress) 2 mg QHS PO Last administered on 09/14/18at 20:55; Start 09/13/18 at 21:00 Quetiapine Fumarate (SEROquel) 100 mg DAILY PO Last administered on 09/13/18at 08:23; Start 09/10/18 at 09:00; Stop 09/13/18 at 12:00; Status DC Quetiapine Fumarate (SEROquel) 100 mg QHS PO Last administered on 09/14/18at 21:33; Start 09/10/18 at 21:00 Quetiapine Fumarate (SEROquel) 150 mg DAILY PO Last administered on 09/15/18at 08:52; Start 09/14/18 at 09:00 Quetiapine Fumarate (SEROquel) 400 mg QHS PO Last administered on 09/09/18at 22:37; Start 09/08/18 at 21:00; Stop 09/10/18 at 10:51; Status DC Quetiapine Fumarate (SEROquel) 400 mg QHS PO Last administered on 09/14/18at 21:33; Start 09/10/18 at 21:00 Allergies Coded Allergies: No Known Allergies (Unverified , 09/07/18) DYLAN ADAIR DO Sep 15, 2018 10:31 am
--- NOTE | 2018-09-15 17:22 | IPNPDOC ---
Text Note Date of Service The patient was seen on 09/15/18. NOTE SUBJECTIVE: Patient is seen and examined in inpatient mental health unit today. Patient states he has been on insulin for more than 8 years. He states his daily oral intake has been consist. He used to follow with healthcare provider in [place] for his diabetes management. However, since he moved to [place], he has not had chance to establish with any provider locally yet. Denies any acute co mplaints. Patient has good oral intake. OBJECTIVE: VITAL SIGNS: Listed below. GENERAL: No signs of acute distress. Patient is comfortable. HEENT: Normocephalic, atraumatic. Extraocular motors grossly intact. CARDIOVASCULAR: Positive S1 and S2. Regular rate. LUNGS: Clear to auscultation bilaterally. ABDOMEN: Soft, nontender. EXTREMITIES: No edema appreciated. Most recent laboratory data done on 09/10/2018 showed sodium 138, potassium 4.1, carbon dioxide 29, BUN 17, creatinine 1.46, GFR is 26, fasting glucose 322, A1c 13.6, calcium 7.3. ASSESSMENT/PLAN: #. Insulin dependent diabetes. - A1c of 13.6. Patient's home medication reviewed. - Continue titrating Levemir as needed. On sliding scale. On consistent carbohydrate diet. On Neurontin for neuropathy. - Recommend establish with PCP in [place] after discharge. #. Hypertension. - On hydrochlorothiazide and lisinopril. BP in good range. #. Bipolar/posttraumatic stress disorder (PTSD)/schizoaffective disorder. - Management per primary psychiatric team. #. Tobacco usage. On nicotine gum. #. Deep vein thrombosis (DVT) prophylaxis. Encourage ambulation. VS,Fishbone, I+O VS, Fishbone, I+O Vital Signs Date Time Temp Pulse Resp B/P (MAP) Pulse Ox O2 Delivery O2 Flow Rate FiO2 09/15/18 06:49 97.9 99 16 140/83 (102) KRISTIN PINA DO Sep 15, 2018 17:22
[2018-09-15 18:29] VITALS: BP 141/90
[2018-09-15] MEDS: PRAZOSIN 1 MG CAP PO SCH (20:26)
[2018-09-15] MEDS: DIVALPROEX 500MG *ER* TAB PO SCH (20:26)
[2018-09-15] MEDS: QUEtiapine FUMARATE 200 MG TAB PO SCH (22:31)
[2018-09-15] MEDS: QUEtiapine FUMARATE 100 MG TAB PO SCH (22:31)
[2018-09-15] MEDS: LEVEMIR (INSULIN DETEMIR) 1 UNITS/0.01ML SC SCH ×2 (22:51→22:54)
[2018-09-16] MEDS: HumaLOG INSULIN (NovoLOG) PER UNIT SC SCH ×4 (06:53→21:00)
[2018-09-16 06:57] VITALS: BP 156/76
[2018-09-16] MEDS: hydroCHLOROthiazide 25 MG TAB PO SCH (08:46)
[2018-09-16] MEDS: GABAPENTIN 400 MG CAP PO SCH ×3 (08:46→21:15)
[2018-09-16] MEDS: QUEtiapine FUMARATE 50 MG TAB PO SCH (08:46)
[2018-09-16] MEDS: NICOTINE POLACRILEX 2 MG GUM PO PRN ×6 (08:46→19:57)
[2018-09-16] MEDS: LISINOPRIL 40 MG TAB PO SCH (08:46)
[2018-09-16] MEDS: BACITRACIN OINT 30GM TOP SCH ×2 (08:47→21:00)
[2018-09-16] MEDS ORDERED: LEVEMIR (INSULIN DETEMIR) 1 UNITS/0.01ML SC SCH (09:00)
--- NOTE | 2018-09-16 15:44 | IPNPDOC ---
Text Note Date of Service The patient was seen on 09/16/18. NOTE SUBJECTIVE: Patient is seen and examined in inpatient mental health unit today. Patient denies change of diet. Patient denies nausea or vomiting. Patient complains about mild swelling of right lower extremity. He denies discomfort of right lower extremity. Denies recent trauma. He forgot to try leg elevation. He is on diuretic for HTN. OBJECTIVE: VITAL SIGNS: Listed below. GENERAL: No signs of acute distress. Patient is comfortable. HEENT: Normocephalic, atraumatic. Extraocular motors grossly intact. CARDIOVASCULAR: Positive S1 and S2. Regular rate. LUNGS: Clear to auscultation bilaterally. ABDOMEN: Soft, nontender. EXTREMITIES: Mild edema of right foot. No tenderness to palpation. Most recent laboratory data done on 09/10/2018 showed sodium 138, potassium 4.1, carbon dioxide 29, BUN 17, creatinine 1.46, GFR is 26, fasting glucose 322, A1c 13.6, calcium 7.3. ASSESSMENT/PLAN: #. Insulin dependent diabetes. - A1c of 13.6. Patient's home medication reviewed. - Continue titrating Levemir as needed. On sliding scale. On consistent carbohydrate diet. On Neurontin for neuropathy. - Recommend establishing with PCP in [place] after discharge. #. Hypertension. - On hydrochlorothiazide and lisinopril. BP in good range. #. Bipolar/posttraumatic stress disorder (PTSD)/schizoaffective disorder. - Management per primary psychiatric team. #. Tobacco usage. On nicotine gum. #. Deep vein thrombosis (DVT) prophylaxis. Encourage ambulation. VS,Fishbone, I+O VS, Fishbone, I+O Vital Signs Date Time Temp Pulse Resp B/P (MAP) Pulse Ox O2 Delivery O2 Flow Rate FiO2 09/16/18 06:57 98.7 75 16 156/76 (102) KRISTIN PINA DO Sep 16, 2018 15:44
[2018-09-16 18:35] VITALS: BP 159/85
[2018-09-16] MEDS: LEVEMIR (INSULIN DETEMIR) 1 UNITS/0.01ML SC SCH (21:00)
[2018-09-16] MEDS: DIVALPROEX 500MG *ER* TAB PO SCH (21:15)
[2018-09-16] MEDS: PRAZOSIN 1 MG CAP PO SCH (21:15)
[2018-09-16] MEDS: QUEtiapine FUMARATE 100 MG TAB PO SCH (21:53)
[2018-09-16] MEDS: QUEtiapine FUMARATE 200 MG TAB PO SCH (21:54)
[2018-09-17] MEDS: NICOTINE POLACRILEX 2 MG GUM PO PRN ×10 (02:40→23:47)
[2018-09-17 06:46] VITALS: BP 154/96
[2018-09-17 07:05] LABS: HEMATOCRIT 33.9 % (42.0-52.0); HEMOGLOBIN 11.1 g/dl (13.5-17.5); MEAN CORPUSCULAR HGB CONC 32.7 g/dl (32.0-36.5); MEAN CORPUSCULAR VOLUME 82.5 fl (80.0-96.0); PLATELET COUNT, AUTOMATED 240 10^3/uL (150-450); RED BLOOD COUNT 4.11 10^6/uL (4.30-6.10); WHITE BLOOD COUNT 6.2 10^3/uL (4.0-10.0)
[2018-09-17 07:32] LABS: CALCIUM LEVEL 7.4 MG/DL (8.5-10.1); CREATININE FOR GFR 1.66 MG/DL (0.70-1.30); GLOMERULAR FILTRATION RATE 57.1 (>60); MAGNESIUM LEVEL 1.3 MG/DL (1.8-2.4); POTASSIUM SERUM 4.7 MEQ/L (3.5-5.1); URIC ACID 6.5 MG/DL (3.5-7.2)
[2018-09-17] MEDS: LEVEMIR (INSULIN DETEMIR) 1 UNITS/0.01ML SC SCH ×2 (07:45→20:33)
[2018-09-17] MEDS: QUEtiapine FUMARATE 50 MG TAB PO SCH (08:11)
[2018-09-17] MEDS: GABAPENTIN 400 MG CAP PO SCH ×3 (08:11→20:30)
[2018-09-17] MEDS: hydroCHLOROthiazide 25 MG TAB PO SCH ×2 (08:11→16:48)
[2018-09-17] MEDS: LISINOPRIL 40 MG TAB PO SCH (08:12)
[2018-09-17] MEDS: MAGNESIUM OXIDE 400 MG TAB (MAG-OX) PO SCH ×2 (08:12→20:30)
[2018-09-17] MEDS: HumaLOG INSULIN (NovoLOG) PER UNIT SC SCH ×4 (10:29→20:33)
--- NOTE | 2018-09-17 12:45 | IPNPDOC ---
Text Note Date of Service The patient was seen on 09/17/18. NOTE SUBJECTIVE: Patient is seen and examined in inpatient mental health unit today. Per documentation, patient refused Levemir 60unit last night. Per patient, he did not refused insulin. He did not take the insulin because staff did not remind him to take it. This morning patient was found to have glucose greater than 600. He is complaining about bilateral foot swelling. Denies foot trauma. Denies tenderness. OBJECTIVE: VITAL SIGNS: Listed below. GENERAL: No signs of acute distress. Patient is comfortable. HEENT: Normocephalic, atraumatic. Extraocular motors grossly intact. CARDIOVASCULAR: Positive S1 and S2. Regular rate. LUNGS: Clear to auscultation bilaterally. ABDOMEN: Soft, nontender. EXTREMITIES: Mild edema of bilateral lower extremity below the ankles. No tenderness to palpation. No noticeable wound. LAB: Listed below ASSESSMENT/PLAN: #. Insulin dependent diabetes. - A1c of 13.6. Patient's home medication reviewed. - Continue titrating Levemir as needed. On sliding scale. On consistent carbohydrate diet. On Neurontin for neuropathy. - Recommend establishing with PCP in [place] after discharge. - Patient has skipped insulin last night and his morning glucose was greater than 600. #. Hypertension. - On hydrochlorothiazide and lisinopril. BP in good range. # Bilateral lower extremity edema - On diuretic. Encourage ambulation. Encourage leg elevation. #. Bipolar/posttraumatic stress disorder (PTSD)/schizoaffective disorder. - Management per primary psychiatric team. #. Tobacco usage. On nicotine gum. #. Deep vein thrombosis (DVT) prophylaxis. Encourage ambulation. VS,Kvngbone, I+O VS, Fishbone, I+O Laboratory Tests 09/17/18 06:29 Red Blood Count 4.11 L, Mean Corpuscular Volume 82.5, Mean Corpuscular Hemoglobin 27.0, Mean Corpuscular Hemoglobin Concent 32.7, Red Cell Distribution Width 15.5 H, Calcium Level 7.4 L Vital Signs Date Time Temp Pulse Resp B/P (MAP) Pulse Ox O2 Delivery O2 Flow Rate FiO2 09/17/18 06:46 97.6 96 14 154/96 (115) KRISTIN PINA DO Sep 17, 2018 12:45
[2018-09-17 18:26] VITALS: BP 133/91
[2018-09-17] MEDS: DIVALPROEX 500MG *ER* TAB PO SCH (20:30)
[2018-09-17] MEDS: PRAZOSIN 1 MG CAP PO SCH (20:31)
[2018-09-17] MEDS: QUEtiapine FUMARATE 100 MG TAB PO SCH (21:57)
[2018-09-17] MEDS: QUEtiapine FUMARATE 200 MG TAB PO SCH (21:57)
[2018-09-18] MEDS: NICOTINE POLACRILEX 2 MG GUM PO PRN ×8 (03:15→21:54)
[2018-09-18] MEDS: HumaLOG INSULIN (NovoLOG) PER UNIT SC SCH ×4 (06:53→20:48)
[2018-09-18 07:08] VITALS: BP 174/81
[2018-09-18 08:18] LABS: HEMOGLOBIN 11.6 g/dl (13.5-17.5); MEAN CORPUSCULAR HGB CONC 33.1 g/dl (32.0-36.5); MEAN CORPUSCULAR VOLUME 81.6 fl (80.0-96.0); PLATELET COUNT, AUTOMATED 263 10^3/uL (150-450); RED BLOOD COUNT 4.29 10^6/uL (4.30-6.10); WHITE BLOOD COUNT 6.7 10^3/uL (4.0-10.0)
[2018-09-18] MEDS: LEVEMIR (INSULIN DETEMIR) 1 UNITS/0.01ML SC SCH ×2 (08:45→20:47)
[2018-09-18] MEDS: MAGNESIUM OXIDE 400 MG TAB (MAG-OX) PO SCH ×2 (08:46→20:41)
[2018-09-18] MEDS: hydroCHLOROthiazide 25 MG TAB PO SCH ×2 (08:46→17:01)
[2018-09-18] MEDS: GABAPENTIN 400 MG CAP PO SCH ×3 (08:46→20:44)
[2018-09-18] MEDS: QUEtiapine FUMARATE 50 MG TAB PO SCH (08:46)
[2018-09-18] MEDS: LISINOPRIL 40 MG TAB PO SCH (08:46)
[2018-09-18 08:52] LABS: BLOOD UREA NITROGEN 18 MG/DL (7-18); CALCIUM LEVEL 7.8 MG/DL (8.5-10.1); CARBON DIOXIDE LEVEL 26 MEQ/L (21-32); CHLORIDE LEVEL 101 MEQ/L (98-107); CREATININE FOR GFR 1.49 MG/DL (0.70-1.30); GLOMERULAR FILTRATION RATE > 60.0 (>60); GLUCOSE, FASTING 386 MG/DL (70-100); MAGNESIUM LEVEL 1.5 MG/DL (1.8-2.4); POTASSIUM SERUM 4.1 MEQ/L (3.5-5.1); SODIUM LEVEL 133 MEQ/L (136-145)
--- NOTE | 2018-09-18 10:32 | MHIPNPDOC ---
[facility] Progress Note Progress Note DATE OF SERVICE: 09/18/18 IDENTIFYING DATA: Per Admit note: "He is a 48-year-old -Russian male, single, father of three children, supported by Social Security Disability, was admitted on 9 legal status for suicidal ideation. HISTORY OF PRESENT ILLNESS: The patient initially came for help regarding his psychiatric issues. However, since blood sugar was above 1000, he was admitted to medical unit. He was stabilized and sent back to inpatient mental health unit ([facility]). Reportedly, the patient was admitted to a hospital in [place] 2 months ago. After the discharge, he moved with a friend. He was unable to get his medications because of a higher copay. For a month, he was being noncompliant with his medications, psychiatric as well as medical; and he decompensated. His friends brought him to the hospital. The patient reports he has been diagnosed with schizoaffective disorder and posttraumatic stress disorder (PTSD). Started hearing voices when he was a teenager. It worsened when he was in his twenties. He had several hospitalizations. He reports now he hears voices. They are command hallucinations, asking him to kill himself. He has plans either to jump off the bridge because of the command hallucination or jump in front of the traffic. His stressors being his sister and mother last year, his father is old (he is 89 years old), financial issues. The patient also has PTSD. 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 He reports of cleaning up the human body parts and other kinds of debris. He has nightmares and sweating during the night. He has flashbacks." SUBJECTIVE: "I feel alright." OBJECTIVE: He is a 48-year-old -Russian male, single, father of three children supported by social security disability, admitted because of suicidal thoughts. He is noncompliant with his medications. He has multiple psychiatric hospitalizations. He also has drug-alcohol history. Currently, he is denies depression and denies AH. States meds are beneficial and he's tolerating them well. Denies any suicidal thoughts. Motivated toward rehab transfer this Tuesday. MENTAL STATUS EXAMINATION: Well-groomed. Personalizing is good. Cooperative. Makes good eye contact. Psychomotor activity is normal. Speech is conversant. Mood is euthymic. Affect is full, congruent. Denies any suicidal or homicidal ideas. Denies auditory or visual hallucination. Thought process linear, goal- directed, oriented to time, place and person. Memory is intact. Insight and judgment are good. DIAGNOSES: Schizophrenia, chronic, paranoid type. Posttraumatic stress disorder. Polysubstance dependence. Diabetes mellitus (police detective is following elevated blood glucose.) PLAN: Continue current medications. D/c rehab tomorrow CURRENT MEDICATIONS: - quetiapine 150 mg once daily and 500 mg at night - Depakote 500 mg at night - prazosin 2 mg at night - gabapentin 400 mg three times a day Vital Signs Vital Signs Date Time Temp Pulse Resp B/P (MAP) Pulse Ox O2 Delivery O2 Flow Rate FiO2 09/18/18 07:08 98.2 66 14 174/81 (112) Laboratory Data 24[facility] Labs Laboratory Tests 2 09/17/18 12:41: Bedside Glucose (Misc Panel) 334H 09/17/18 16:44: Bedside Glucose (Misc Panel) 275H 09/17/18 20:30: Bedside Glucose (Misc Panel) 322H 09/18/18 06:03: Bedside Glucose (Misc Panel) 463H 09/18/18 07:43: Nucleated Red Blood Cells % (auto) 0.0, Anion Gap 6L, Glomerular Filtration Rate > 60.0, Blood Urea Nitrogen 18, Creatinine 1.49H, Sodium Level 133L, Potassium Level 4.1, Chloride Level 101, Carbon Dioxide Level 26, Calcium Level 7.8L, Magnesium Level 1.5L CBC/BMP Laboratory Tests 09/18/18 07:43 Red Blood Count 4.29 L, Mean Corpuscular Volume 81.6, Mean Corpuscular Hemoglobin 27.0, Mean Corpuscular Hemoglobin Concent 33.1, Red Cell Distribution Width 15.5 H, Calcium Level 7.8 L Current Medications Current Medications Acetaminophen (Tylenol Tab) 650 mg Q6HP PRN PO HEADACHE or DISCOMFORT; Start 09/08/18 at 18:00 Al Hydrox/Mg Hydrox/Simethicone (Mylanta) 30 ml Q4HP PRN PO HEARTBURN/INDIGESTION Last administered on 09/14/18at 22:17; Start 09/08/18 at 18:00 Bacitracin (Bacitracin Oint) to burn left hand for 7 days BID TOP Last administ ered on 09/16/18at 08:47; Start 09/10/18 at 09:00; Stop 09/16/18 at 21:01; Status DC Divalproex Sodium (Depakote Er) 500 mg QHS PO Last administered on 09/17/18at 20:30; Start 09/10/18 at 21:00 Gabapentin (Neurontin) 300 mg TID PO Last administered on 09/13/18at 08:23; Start 09/08/18 at 21:00; Stop 09/13/18 at 11:58; Status DC Gabapentin (Neurontin) 400 mg TID PO Last administered on 09/18/18at 08:46; Start 09/13/18 at 16:00 Glucagon (Glucagon) 1 mg ASDIRECTED PRN SC SEE LABEL COMMENTS; Start 09/08/18 at 18:00 Glucose (Glucose) 16 GM ASDIRECTED PRN PO SEE LABEL COMMENTS; Start 09/08/18 at 18:00 Hydrochlorothiazide (Hydrodiuril) 25 mg BID@09,17 PO Last administered on 09/18/18at 08:46; Start 09/17/18 at 17:00 Hydrochlorothiazide (Hydrodiuril) 25 mg DAILY PO Last administered on 09/17/18at 08:11; Start 09/09/18 at 09:00; Stop 09/17/18 at 10:31; Status DC Hydroxyzine HCl (Atarax) 25 mg Q6HP PRN PO ANXIETY; Start 09/09/18 at 12:45 Insulin Detemir (Levemir Insulin) 10 units DAILY SC ; Start 09/09/18 at 09:00; Stop 09/09/18 at 09:00; Status DC Insulin Detemir (Levemir Insulin) 10 units DAILY SC Last administered on 09/10/18at 08:05; Start 09/10/18 at 09:00; Stop 09/10/18 at 09:00; Status DC Insulin Detemir (Levemir Insulin) 20 units DAILY SC Last administered on 09/13/18at 08:22; Start 09/11/18 at 09:00; Stop 09/13/18 at 18:06; Status DC Insulin Detemir (Levemir Insulin) 30 units DAILY SC Last administered on 09/14/18 08:26; Start 09/14/18 at 09:00; Stop 09/15/18 at 07:42; Status DC Insulin Detemir (Levemir Insulin) 30 units QHS SC Last administered on 09/10/18at 22:33; Start 09/08/18 at 21:00; Stop 09/11/18 at 08:56; Status DC Insulin Detemir (Levemir Insulin) 40 units QAM SC Last administered on 09/15/18 08:52; Start 09/15/18 at 09:00; Stop 09/15/18 at 17:04; Status DC Insulin Detemir (Levemir Insulin) 40 units QHS SC Last administered on 09/13/18 20:59; Start 09/11/18 at 21:00; Stop 09/14/18 at 13:14; Status DC Insulin Detemir (Levemir Insulin) 50 units DAILY SC Last administered on 09/16/18 08:45; Start 09/16/18 at 09:00; Stop 09/16/18 at 10:34; Status DC Insulin Detemir (Levemir Insulin) 50 units QHS SC Last administered on 09/14/18 20:56; Start 09/14/18 at 21:00; Stop 09/15/18 at 17:06; Status DC Insulin Detemir (Levemir Insulin) 55 units QHS SC Last administered on 09/15/18 22:54; Start 09/15/18 at 21:00; Stop 09/16/18 at 10:34; Status DC Insulin Detemir (Levemir Insulin) 60 units BID SC Last administered on 09/18/18 08:45; Start 09/16/18 at 21:00 Insulin Human Lispro (HumaLOG INSULIN) See Protocol Table AC SC Last administered on 09/18/18 06:53; Start 09/09/18 at 07:30 Insulin Human Lispro (HumaLOG INSULIN) See Protocol Table QHS SC Last administered on 09/17/18 20:33; Start 09/08/18 at 21:00 Lisinopril (Prinivil) 40 mg DAILY PO Last administered on 09/18/18at 08:46; Start 09/09/18 at 09:00 Magnesium Hydroxide (Milk Of Magnesia) 30 ml DAILYPRN PRN PO CONSTIPATION; Start 09/08/18 at 18:00 Magnesium Oxide (Mag-Ox) 800 mg BID PO Last administered on 09/18/18 08:46; Start 09/17/18 at 09:00 Nicotine (Nicorette) 2 mg Q2HP PRN PO NICOTINE WITHDRAWAL Last administered on 09/11/18 15:19; Start 09/08/18 at 18:00; Stop 09/11/18 at 18:15; Status DC Nicotine (Nicorette) 4 mg Q2HP PRN PO NICOTINE WITHDRAWAL Last administered on 09/18/18 08:47; Start 09/11/18 at 18:15 Prazosin HCl (Minipress) 1 mg ACS PO Last administered on 09/11/18 17:08; Start 09/11/18 at 17:30; Stop 09/12/18 at 17:34; Status DC Prazosin HCl (Minipress) 1 mg QHS PO Last administered on 09/12/18 21:09; Start 09/12/18 at 21:00; Stop 09/13/18 at 11:57; Status DC Prazosin HCl (Minipress) 2 mg QHS PO Last administered on 09/17/18 20:31; Start 09/13/18 at 21:00 Quetiapine Fumarate (SEROquel) 100 mg DAILY PO Last administered on 09/13/18 08:23; Start 09/10/18 at 09:00; Stop 09/13/18 at 12:00; Status DC Quetiapine Fumarate (SEROquel) 100 mg QHS PO Last administered on 09/17/18 21:57; Start 09/10/18 at 21:00 Quetiapine Fumarate (SEROquel) 150 mg DAILY PO Last administered on 09/18/18 08:46; Start 09/14/18 at 09:00 Quetiapine Fumarate (SEROquel) 400 mg QHS PO Last administered on 09/09/18 22:37; Start 09/08/18 at 21:00; Stop 09/10/18 at 10:51; Status DC Quetiapine Fumarate (SEROquel) 400 mg QHS PO Last administered on 09/17/18 21:57; Start 09/10/18 at 21:00 Allergies Coded Allergies: No Known Allergies (Unverified , 09/07/18) DYLAN ADAIR DO Sep 18, 2018 10:32 am
--- NOTE | 2018-09-18 15:14 | IPNPDOC ---
Text Note Date of Service The patient was seen on 09/18/18. NOTE SUBJECTIVE: Patient is seen and examined in inpatient mental health unit today. Patient is complaining about bilateral lower extremity swelling. Denies lower extremity tenderness. Denies fever or chill. OBJECTIVE: VITAL SIGNS: Listed below. GENERAL: No signs of acute distress. Patient is comfortable. HEENT: Normocephalic, atraumatic. Extraocular motors grossly intact. CARDIOVASCULAR: Positive S1 and S2. Regular rate. LUNGS: Clear to auscultation bilaterally. ABDOMEN: Soft, nontender. EXTREMITIES: Mild edema of bilateral lower extremity. No calf tenderness. No noticeable wound. LAB: Listed below ASSESSMENT/PLAN: #. Insulin dependent diabetes. - A1c of 13.6. Patient's home medication reviewed. - Continue titrating Levemir as needed. On sliding scale. On consistent carbohydrate diet. On Neurontin for neuropathy. - Recommend establishing with PCP in [place] after discharge. - Patient has skipped long acting insulin on 09/16/18 evening time. # Bilateral lower extremity edema. - No Calf tenderness. No trauma. No wound. No warmth. - Encourage leg elevation. Encourage ambulation. Trial of VALENCIA stocking. #. Hypertension. - On hydrochlorothiazide and lisinopril. #. Schizophrenia/bipolar/PTSD/ - Management per primary psychiatric team. - Possible discharge to rehab on 09/19/18 per psych. #. Tobacco usage. On nicotine gum. #. Deep vein thrombosis (DVT) prophylaxis. Encourage ambulation. VS,Fishbone, I+O VS, Fishbone, I+O Laboratory Tests 09/18/18 07:43 Red Blood Count 4.29 L, Mean Corpuscular Volume 81.6, Mean Corpuscular Hemoglobin 27.0, Mean Corpuscular Hemoglobin Concent 33.1, Red Cell Distribution Width 15.5 H, Calcium Level 7.8 L Vital Signs Date Time Temp Pulse Resp B/P (MAP) Pulse Ox O2 Delivery O2 Flow Rate FiO2 09/18/18 07:08 98.2 66 14 174/81 (112) KRISTIN PINA DO Sep 18, 2018 15:14
[2018-09-18 18:00] VITALS: BP 136/78
[2018-09-18] MEDS: DIVALPROEX 500MG *ER* TAB PO SCH (20:42)
[2018-09-18 20:44] VITALS: BP 140/90
[2018-09-18] MEDS: PRAZOSIN 1 MG CAP PO SCH (20:44)
[2018-09-18] MEDS: QUEtiapine FUMARATE 100 MG TAB PO SCH (21:53)
[2018-09-18] MEDS: QUEtiapine FUMARATE 200 MG TAB PO SCH (21:53)
[2018-09-19] MEDS: NICOTINE POLACRILEX 2 MG GUM PO PRN ×3 (00:18→08:28)
[2018-09-19] MEDS: HumaLOG INSULIN (NovoLOG) PER UNIT SC SCH (06:38)
[2018-09-19 06:48] VITALS: BP 148/80
[2018-09-19 08:08] LABS: BLOOD UREA NITROGEN 19 MG/DL (7-18); CALCIUM LEVEL 8.3 MG/DL (8.5-10.1); CARBON DIOXIDE LEVEL 29 MEQ/L (21-32); CHLORIDE LEVEL 105 MEQ/L (98-107); CREATININE FOR GFR 1.35 MG/DL (0.70-1.30); GLOMERULAR FILTRATION RATE > 60.0 (>60); GLUCOSE, FASTING 261 MG/DL (70-100); MAGNESIUM LEVEL 1.8 MG/DL (1.8-2.4); POTASSIUM SERUM 4.3 MEQ/L (3.5-5.1); SODIUM LEVEL 138 MEQ/L (136-145)
[2018-09-19] MEDS: LEVEMIR (INSULIN DETEMIR) 1 UNITS/0.01ML SC SCH (08:23)
[2018-09-19] MEDS: GABAPENTIN 400 MG CAP PO SCH (08:24)
[2018-09-19] MEDS: LISINOPRIL 40 MG TAB PO SCH (08:24)
[2018-09-19] MEDS: QUEtiapine FUMARATE 50 MG TAB PO SCH (08:24)
[2018-09-19] MEDS: hydroCHLOROthiazide 25 MG TAB PO SCH (08:24)
[2018-09-19] MEDS: MAGNESIUM OXIDE 400 MG TAB (MAG-OX) PO SCH (08:25)
--- NOTE | 2018-09-19 08:33 | MHDSPDOC ---
[facility] Discharge Summary Discharge Summary DATE OF ADMISSION: Sep 08, 2018 at 5:59 pm DATE OF DISCHARGE: September 19, 2018 DISCHARGE DIAGNOSES: Schizophrenia, chronic, paranoid type. Posttraumatic stress disorder. Polysubstance dependence. REASON FOR ADMISSION: IDENTIFYING DATA: Per Admit note: "He is a 48-year-old -[place] male, single, father of three children, supported by Social Security Disability, was admitted on legal status for suicidal ideation. HISTORY OF PRESENT ILLNESS: The patient initially came for help regarding his psychiatric issues. However, since blood sugar was above 1000, he was admitted to medical unit. He was stabilized and sent back to inpatient mental health unit ([facility]). Reportedly, the patient was admitted to a hospital in [place] 2 months ago. After the discharge, he moved with a friend. He was unable to get his medications because of a higher copay. For a month, he was being noncompliant with his medications, psychiatric as well as medical; and he decompensated. His friends brought him to the hospital. The patient reports he has been diagnosed with schizoaffective disorder and posttraumatic stress disorder (PTSD). Started hearing voices when he was a teenager. It worsened when he was in his twenties. He had several hospitalizations. He reports now he hears voices. They are command hallucinations, asking him to kill himself. He has plans either to jump off the bridge because of the command hallucination or jump in front of the traffic. His stressors being his sister and mother last year, his father is old (he is 89 years old), financial issues. The patient also has PTSD. 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 He reports of cleaning up the human body parts and other kinds of debris. He has nightmares and sweating during the night. He has flashbacks." CONSULTANTS INVOLVED: medicine for uncontrolled diabetes TREATMENT AND PROGRESS ON THE UNIT :Pt was admitted to [facility], seen for psychiatric assessment and started on quetiapine 150 mg once daily and 500 mg at night, Depakote 500 mg at night, prazosin 2 mg at night gabapentin 400 mg three times a day. He was provided trazodone 50mg qhs prn insomnia. Pt found his medications beneficial and tolerated them well. He attended groups daily during his stay. His symptoms improved with treatment. On day of discharge he denied depression, anxiety, insomnia, SI/HI, hallucinations, delusions. He was discharged to rehab. He felt safe for discharge. DISCHARGE ASSESSMENT: Currently, states he feels good. States meds are beneficial and he's tolerating them well. Denies any suicidal thoughts. Motivated toward rehab transfer today. Denies depression, anxiety, insomnia, SI/HI, hallucinations, delusions. Feels safe to go to rehab. MENTAL STATUS EXAMINATION ON DISCHARGE: Well-groomed. Personalizing is good. Cooperative. Makes good eye contact. Psychomotor activity is normal. Speech is conversant. Mood is euthymic. Affect is full, congruent. Denies any suicidal or homicidal ideas. Denies auditory or visual hallucination. Thought process linear, goal- directed, oriented to time, place and person. Memory is intact. Insight and judgment are good. MEDICATIONS ON DISCHARGE: - quetiapine 150 mg once daily and 500 mg at night - Depakote 500 mg at night - prazosin 2 mg at night - gabapentin 400 mg three times a day PLAN/FOLLOWUP ARRANGEMENTS: D/c to rehab The amount of time spent in the coordination of care for this patient was approximately 30 minutes. Vital Signs/I&Os Vital Signs Date Time Temp Pulse Resp B/P (MAP) Pulse Ox O2 Delivery O2 Flow Rate FiO2 09/19/18 06:48 97.9 79 16 148/80 (102) 09/18/18 18:00 98 Laboratory Data Labs 24H Laboratory Tests 2 09/18/18 12:05: Bedside Glucose (Misc Panel) 364H 09/18/18 17:00: Bedside Glucose (Misc Panel) 126H 09/18/18 20:36: Bedside Glucose (Misc Panel) 265H 09/19/18 06:29: Bedside Glucose (Misc Panel) 282H 09/19/18 06:56: Anion Gap 4L, Glomerular Filtration Rate > 60.0, Blood Urea Nitrogen 19H, Creatinine 1.35H, Sodium Level 138, Potassium Level 4.3, Chloride Level 105, Carbon Dioxide Level 29, Calcium Level 8.3L, Magnesium Level 1.8 CBC/BMP Laboratory Tests 09/19/18 06:56 Calcium Level 8.3 L Medications Scheduled Hydrochlorothiazide (Hydrochlorothiazide) 25 Mg Tab, 25 MG PO DAILY, (Reported) Insulin Detemir (Levemir) 1 Units/0.01 Ml Susp, 25 UNITS SC QHS, #3 Insulin Human Lispro (Humalog) 1 Units/0.01 Ml Inj, 0 UNITS SC AC, #3 0-100: 0 units, 101-150: 2 units, 151-200: 4 units, 201-250: 6 units, 251- 300: 8 units, 301-350: 10 units, 351-400: 12 units, >400: 14 units Insulin Human Lispro (Humalog) 1 Units/0.01 Ml Inj, 0 UNITS SC QHS, #3 0-250: 0 units, 251-300: 2 Units, 301-350: 4 units, 351-400: 6 units, >400: 8 units Lisinopril (Lisinopril) 40 Mg Tab, 40 MG PO DAILY, (Reported) Potassium Phos/Sodium Phos (Phos-Nak Packet) 1 Pkt Powd, 1 PKT PO QID, #3 Quetiapine Fumarate (Seroquel) 400 Mg Tab, 400 MG PO QPM, (Reported) Allergies Coded Allergies: No Known Allergies (Unverified , 09/07/18) DYLAN ADAIR DO Sep 19, 2018 8:32 am
== END 2018-09-19 09:09 | DRG 885 ==
LOC: M PSY 17:59
PROVIDERS: ADMIT Psychiatry & Neurology Psychiatry; ATTEND Psychiatry & Neurology Psychiatry
DX: F20.0 Paranoid schizophrenia (principal); F43.10 Post-traumatic stress disorder, unspecified; Z79.899 Other long term (current) drug therapy; E11.40 Type 2 diabetes mellitus with diabetic neuropathy, unspecified; I10 Essential (primary) hypertension; Z79.4 Long term (current) use of insulin; F17.200 Nicotine dependence, unspecified, uncomplicated; Z91.14 Patient's other noncompliance with medication regimen

== ENCOUNTER 2018-10-19 10:47 | Inpatient (IN) | payer MEDICARE ==
[~2018-10-19] VITALS: Ht 175.3 cm; Wt 87.8 kg
[2018-10-19] MEDS ORDERED: LORazepam 2 MG/ML VIAL (J2060) IV STA ×2 (10:59→12:18)
[2018-10-19] MEDS ORDERED: NS 1,000 ML IV ONE ×2 (11:00→12:30)
[2018-10-19 11:33] LABS: BASO % 0.3 % (0.0-1.0); EOS % 0.1 % (0.0-3.0); HEMATOCRIT 36.6 % (42.0-52.0); HEMOGLOBIN 12.4 g/dl (13.5-17.5); LYMPH # 3.5 10^3/uL (1.5-4.5); MEAN CORPUSCULAR HEMOGLOBIN 27.3 pg (27.0-33.0); MEAN CORPUSCULAR HGB CONC 33.9 g/dl (32.0-36.5); MEAN CORPUSCULAR VOLUME 80.6 fl (80.0-96.0); MONO # 0.5 10^3/uL (0.0-0.8); NEUTROPHILS # 5.2 10^3/uL (1.8-7.7); NEUTROPHILS % 56.3 % (36.0-66.0); PLATELET COUNT, AUTOMATED 265 10^3/uL (150-450); RED BLOOD COUNT 4.54 10^6/uL (4.30-6.10); WHITE BLOOD COUNT 9.3 10^3/uL (4.0-10.0)
[2018-10-19 12:10] LABS: ACETAMINOPHEN LEVEL < 2.0 UG/ML (10.0-30.0); ALBUMIN 2.4 GM/DL (3.2-5.2); ALT/SGPT 177 U/L (12-78); BILIRUBIN,DIRECT < 0.1 MG/DL (0.0-0.2); BILIRUBIN,TOTAL 0.3 MG/DL (0.2-1.0); BLOOD UREA NITROGEN 25 MG/DL (7-18); CALCIUM LEVEL 8.1 MG/DL (8.5-10.1); CARBON DIOXIDE LEVEL 23 MEQ/L (21-32); CHLORIDE LEVEL 95 MEQ/L (98-107); CPK CREATINE PHOSPHOKINASE 265 U/L (39-308); ETHYL ALCOHOL (ETHANOL) 0.006 % (0.000-0.010); GLOMERULAR FILTRATION RATE 48.9 (>60); GLUCOSE, FASTING 485 MG/DL (70-100); POTASSIUM SERUM 5.4 MEQ/L (3.5-5.1); SALICYLATE LEVEL 2.3 MG/DL (5.0-30.0); SODIUM LEVEL 129 MEQ/L (136-145)
[2018-10-19 13:38] LABS: AMPHETAMINES LEVEL URINE POSITIVE (NEGATIVE); BARBITURATES URINE NEGATIVE (NEGATIVE); BENZODIAZEPINES URINE NEGATIVE (NEGATIVE); CANNABINOIDS URINE NEGATIVE (NEGATIVE); COCAINE METABOLITE URINE POSITIVE (NEGATIVE); METHADONE URINE NEGATIVE (NEGATIVE); OPIATES URINE NEGATIVE (NEGATIVE); PHENCYCLIDINE URINE NEGATIVE (NEGATIVE)
[2018-10-19] MEDS ORDERED: HumuLIN R (REGULAR) INSULIN (NovoLIN R) **100U/ML** PER UNIT IV ONE (13:45)
[2018-10-19] MEDS: NS 1,000 ML IV SCH ×3 (14:12→21:30)
[2018-10-19] MEDS ORDERED: INSUDET SC (14:15)
[2018-10-19] MEDS ORDERED: NEUTPW PO (14:15)
[2018-10-19] MEDS ORDERED: INSUHUMDS SC ×2 (14:15)
[2018-10-19] MEDS ORDERED: DEXTROSE 50% 50 ML SYRINGE IV PRN (15:00)
[2018-10-19] MEDS ORDERED: GLUCAGON FOR INJ 1 MG VIAL (J1610) SC PRN (15:00)
[2018-10-19] MEDS ORDERED: GLUCOSE 4 GM CHEW TABLET PO PRN (15:00)
[2018-10-19] MEDS ORDERED: ACETAMINOPHEN TAB 650MG DOSE (2X325MG) PO PRN (15:00)
[2018-10-19] MEDS: FOLIC ACID 1 MG TAB PO SCH ×3 (15:02→18:44)
[2018-10-19] MEDS: MULTIVITAMINS/MINERALS THERAP 1 TAB PO SCH (15:04)
--- NOTE | 2018-10-19 15:05 | HPEPDOC ---
[facility] Medical History & Physical Date of Admission October 19, 2018 Attending Physician: CRISTOBAL LASSITER MD History and Physical CHIEF COMPLAINT: Hearing voices/Suicidal ideation HISTORY OF PRESENT ILLNESS: Patient is a 48-year-old male with past medical history of schizoaffective disorder, bipolar, PTSD, IDDM, polysubstance abuse, and hypertension noncompliant with medications presented to ER with complaint of hearing voices with suicidal ideation. Patient reports that he has stopped taking medications whenever he feels good and cause him to hear voices telling him to her himself. He stated he has been hearing voices all day today and had used multiple drugs prior to coming into the ER including meth, cocaine, Carmenza a nd drink a lot of alcohol. He was found to be hypertensive, tachycardic and hyperglycemic upon arrival. He was given some Ativan in the ER with improvement in HR and blood pressure to 180s systolic. He reports still hearing voices telling him to hurt himself but otherwise denies any physical complaints including nausea, vomiting, abdominal pain, chest pain or shortness of breath. PAST MEDICAL HISTORY: Refer to [facility] PAST SURGICAL HISTORY: None SOCIAL HISTORY: Smokes one pack per day. Binge drink alcohol occasionally last drink this morning, and prior drinking yesterday. FAMILY HISTORY: Mother had schizoaffective disorder. ALLERGIES: Please see below. REVIEW OF SYSTEMS: 10 point review of system negative except as stated in [facility] HOME MEDICATIONS: Please see below. PHYSICAL EXAMINATION: General: No acute distress, Alert Eyes: Normal sclera, EOMI, NELLY HENT: Atraumatic, neck supple, moist mucous membranes Cardiovascular: Tachycardic, normal rhythm. No murmurs appreciated. Pulmonary: Clear to auscultation b/l, no wheezing GI: Soft, nontender, nondistended Skin: Warm and dry Neuro: CN grossly intact. No focal deficits. Strengths equal b/l. Psych: oriented x 3 LABORATORY DATA: See below. IMAGING: None MICROBIOLOGY: Please see below. ASSESSMENT AND PLAN: 1. Schizoaffective disorder/PTSD/Bipolar - Actively hearing voices with suicidal ideation. - Has not taken any of his medications. - Resume home medications. - 1:1 observation. - Once medically stable, plan to discharge to [facility] inpatient. 2. Hypertension - Likely from cocaine/meth use right before ER arrival along with medication noncompliance. - HR now in low 100s and BP 180s, improved just after Ativan. - Will resume home medications and observe without too aggressive intervention at this time, likely chronic. 3. BELLE - Likely from dehydration with heavy alcohol and drug use. - s/p 2L IVF bolus in ER, will continue maintenance hydration. 4. Hyperglycemia - 2/2 insulin noncompliance. Normal AG. - 2 IVF boluses given. c/w maintenance fluids. - Resume insulin SQ. Dispo: To [facility] Vital Signs Vital Signs Date Time Temp Pulse Resp B/P (MAP) Pulse Ox O2 Delivery O2 Flow Rate FiO2 10/19/18 14:45 101 98 10/19/18 14:30 181/89 (119) 10/19/18 11:13 98.3 10/19/18 10:49 16 Room Air Laboratory Data Labs 24H Laboratory Tests 2 10/19/18 11:09: Immature Granulocyte % (Auto) 0.3, White Blood Count 9.3, Red Blood Count 4.54, Hemoglobin 12.4L, Hematocrit 36.6L, Mean Corpuscular Volume 80.6, Mean Corpuscular Hemoglobin 27.3, Mean Corpuscular Hemoglobin Concent 33.9, Red Cell Distribution Width 14.5, Platelet Count 265, Neutrophils (%) (Auto) 56.3, Lymphocytes (%) (Auto) 38.0, Monocytes (%) (Auto) 5.0, Eosinophils (%) (Auto) 0.1, Basophils (%) (Auto) 0.3, Neutrophils # (Auto) 5.2, Lymphocytes # (Auto) 3.5, Monocytes # (Auto) 0.5, Eosinophils # (Auto) 0.0, Basophils # (Auto) 0.0, Nucleated Red Blood Cells % (auto) 0.0, Anion Gap 11, Glomerular Filtration Rate 48.9L, Calcium Level 8.1L, Aspartate Amino Transf (AST/SGOT) 84H, Alanine Aminotransferase (ALT/SGPT) 177H, Alkaline Phosphatase 183H, Total Bilirubin 0.3, Direct Bilirubin < 0.1, Total Creatine Kinase 265, Total Protein 8.0, Albumin 2.4L, Albumin/Globulin Ratio 0.43L, Thyroid Stimulating Hormone (TSH) 1.160, Salicylates Level 2.3L, Acetaminophen Level < 2.0L, Ethyl Alcohol Level 0.006 10/19/18 12:33: Urine Amphetamines Screen POSITIVEH, Urine Benzodiazepines Screen NEGATIVE, Urine Opiates Screen NEGATIVE, Urine Methadone Screen NEGATIVE, Urine Barbitura melani Screen NEGATIVE, Urine Phencyclidine Screen NEGATIVE, Urine Cocaine Metabolite Screen POSITIVEH, Urine Cannabinoids Screen NEGATIVE 10/19/18 14:38: Bedside Glucose (Misc Panel) 291H CBC/BMP Laboratory Tests 10/19/18 11:09 Red Blood Count 4.54, Mean Corpuscular Volume 80.6, Mean Corpuscular Hemoglobin 27.3, Mean Corpuscular Hemoglobin Concent 33.9, Red Cell Distribution Width 14.5, Neutrophils (%) (Auto) 56.3, Lymphocytes (%) (Auto) 38.0, Monocytes (%) (Auto) 5.0, Eosinophils (%) (Auto) 0.1, Basophils (%) (Auto) 0.3, Neutrophils # (Auto) 5.2, Lymphocytes # (Auto) 3.5, Monocytes # (Auto) 0.5, Eosinophils # (Auto) 0.0, Basophils # (Auto) 0.0 Home Medications Scheduled Hydrochlorothiazide (Hydrochlorothiazide) 25 Mg Tab, 25 MG PO DAILY Insulin Detemir (Levemir) 100 Unit/1 Ml Vial, 25 UNITS SC QHS Insulin Human Lispro (Humalog) 100 Unit/1 Ml Vial, 1 DOSE SC QHS 0-250: 0 units, 251-300: 2 Units, 301-350: 4 units, 351-400: 6 units, >400: 8 units Insulin Human Lispro (Humalog) 100 Unit/1 Ml Vial, 1 DOSE SC AC 0-100: 0 units, 101-150: 2 units, 151-200: 4 units, 201-250: 6 units, 251- 300: 8 units, 301-350: 10 units, 351-400: 12 units, >400: 14 units Lisinopril (Lisinopril) 40 Mg Tab, 40 MG PO DAILY Potassium Phos/Sodium Phos (Phos-Nak Packet) 1 Each Powd.pack, 1 PKT PO QID Quetiapine Fumarate (Seroquel) 400 Mg Tab, 400 MG PO QPM Allergies Coded Allergies: No Known Allergies (Unverified , 10/19/18) A-FIB/CHADSVASC A-FIB History Current/History of A-Fib/PAF?: No CRISTOBAL LASSITER MD October 19, 2018 15:05
[2018-10-19] MEDS: LISINOPRIL 40 MG TAB PO SCH (15:38)
[2018-10-19] MEDS: HEPARIN SOD (PORCINE) 5000 UNITS/ML VIAL SC SCH ×2 (15:38→22:15)
[2018-10-19] MEDS: LEVEMIR (INSULIN DETEMIR) 1 UNITS/0.01ML SC SCH ×2 (15:38→21:00)
[2018-10-19] MEDS: NEUTRA-PHOS 1.5 GM PACKET PO SCH ×2 (15:38→21:15)
--- NOTE | 2018-10-19 17:19 | ECGEPIP ---
Stationary ECG Study [facility] - ED Test Date: 2018-10-19 Pat Name: JOSEPH NEWTON Department: Room: [place] [address] Gender: M Public Relations Supervisor: : [id number] Requested By: Rubi Gupta Order Number: [id number] Reading MD: Adi Alvarez Measurements Intervals [place] Rate: 104 P: 65 CO: 143 QRS: 52 QRSD: 86 T: 33 QT: 327 QTc: 431 Interpretive Statements SINUS TACHYCARDIA POSSIBLE LEFT ATRIAL ENLARGEMENT SIMILAR TO 09/07/18 Electronically Signed On 10-19-2018 17:19:12 EDT by Adi Alvarez
[2018-10-19] MEDS: hydroCHLOROthiazide 25 MG TAB PO SCH (17:21)
[2018-10-19 18:00] VITALS: BP 172/88
[2018-10-19] MEDS: HumaLOG INSULIN (NovoLOG) PER UNIT SC SCH ×2 (18:44→21:00)
[2018-10-19] MEDS: THIAMINE 100 MG TAB PO SCH ×2 (18:46→21:15)
[2018-10-19 20:00] VITALS: BP 160/83
[2018-10-19] MEDS: QUEtiapine FUMARATE 200 MG TAB PO SCH (21:16)
[2018-10-19 21:17] VITALS: BP 160/83
[2018-10-19 23:59] VITALS: BP 160/74
[2018-10-20] VITALS (12 sets, daily range): BP systolic 140–200; BP diastolic 70–114
[2018-10-20] MEDS: NS 1,000 ML IV SCH ×2 (01:30→03:15)
[2018-10-20 05:12] LABS: HEMATOCRIT 28.9 % (42.0-52.0); MEAN CORPUSCULAR HEMOGLOBIN 27.2 pg (27.0-33.0); MEAN CORPUSCULAR HGB CONC 33.6 g/dl (32.0-36.5); MEAN CORPUSCULAR VOLUME 81.2 fl (80.0-96.0); PLATELET COUNT, AUTOMATED 193 10^3/uL (150-450); RED BLOOD COUNT 3.56 10^6/uL (4.30-6.10); WHITE BLOOD COUNT 5.8 10^3/uL (4.0-10.0)
[2018-10-20 05:16] LABS: HEMOGLOBIN 9.7 g/dl (13.5-17.5)
[2018-10-20 05:34] LABS: BLOOD UREA NITROGEN 19 MG/DL (7-18); CALCIUM LEVEL 7.7 MG/DL (8.5-10.1); CARBON DIOXIDE LEVEL 27 MEQ/L (21-32); CHLORIDE LEVEL 106 MEQ/L (98-107); CREATININE FOR GFR 1.38 MG/DL (0.70-1.30); GLOMERULAR FILTRATION RATE > 60.0 (>60); GLUCOSE, FASTING 285 MG/DL (70-100); POTASSIUM SERUM 3.9 MEQ/L (3.5-5.1); SODIUM LEVEL 137 MEQ/L (136-145)
[2018-10-20] MEDS: HEPARIN SOD (PORCINE) 5000 UNITS/ML VIAL SC SCH ×3 (06:49→21:06)
[2018-10-20] MEDS: NICOTINE POLACRILEX 2 MG GUM PO PRN ×3 (06:50→21:07)
[2018-10-20] MEDS: HumaLOG INSULIN (NovoLOG) PER UNIT SC SCH ×4 (08:37→21:07)
[2018-10-20] MEDS: LISINOPRIL 40 MG TAB PO SCH (08:38)
[2018-10-20] MEDS: hydroCHLOROthiazide 25 MG TAB PO SCH (08:38)
[2018-10-20] MEDS: MULTIVITAMINS/MINERALS THERAP 1 TAB PO SCH (08:38)
[2018-10-20] MEDS: THIAMINE 100 MG TAB PO SCH ×2 (08:41→20:52)
[2018-10-20] MEDS: NEUTRA-PHOS 1.5 GM PACKET PO SCH (09:00)
--- NOTE | 2018-10-20 14:33 | IPNPDOC ---
Date Seen The patient was seen on 10/20/18. Progress Note SUBJECTIVE: Patient reported that he does not sleep well overnight as he does get recurrent nightmares Physically he feels relatively the same. Still hearing voices with suicidal ideation. Tachycardia had resolved and blood pressure improved significantly since arrival. OBJECTIVE PHYSICAL EXAMINATION: VITAL SIGNS: Please see below. General: No acute distress, Alert Eyes: Normal sclera, EOMI, NELLY HENT: Atraumatic, neck supple, moist mucous membranes Cardiovascular: Normal rate, normal rhythm. No murmurs appreciated. Pulmonary: Clear to auscultation b/l, no wheezing GI: Soft, nontender, nondistended Skin: Warm and dry Neuro: CN grossly intact. No focal deficits. Strengths equal b/l. Psych: oriented x 3 LABORATORY DATA, IMAGING STUDIES, MICROBIOLOGY: Please see below. DVT prophylaxis ordered?: HSQ ASSESSMENT AND PLAN: 1. Schizoaffective disorder/PTSD/Bipolar - Actively hearing voices with suicidal ideation. - Noncompliant with medications. - Resume home medications. - 1:1 observation. - Once medically stable, plan to discharge to [facility] inpatient. 2. Hypertension - Likely from cocaine/meth use right before ER arrival along with medication noncompliance. - Improved. - c/w home meds and monitor BP. 3. BELLE - Improving - Likely from dehydration with heavy alcohol and drug use. - s/p 2L IVF bolus in ER, will continue maintenance hydration. 4. Hyperglycemia - 2/2 insulin noncompliance. Normal AG. - 2 IVF boluses given in ER. c/w maintenance fluids. - Resume insulin SQ. - On Levemir 25 units SQ daily. Patient reports taking it sliding scale at home, around 50-65 units each night? - BS labile but does go low to <50 on 25 units of Levemir. - Will keep at current regimen of 25 since patient is eating more today and cover with sliding scale. Dispo: To [facility] A-FIB/CHADSVASC A-FIB History Current/History of A-Fib/PAF?: No VS, I&O, 24H, Fishbone Vital Signs/I&O Vital Signs Date Time Temp Pulse Resp B/P (MAP) Pulse Ox O2 Delivery O2 Flow Rate FiO2 10/20/18 12:00 97.8 80 20 155/74 (101) 99 10/19/18 17:19 Room Air I&O- Last 24 Hours up to 6 AM 10/20/18 06:00 Intake Total 5920 ml Output Total 1850 ml Balance 4070 ml Laboratory Data 24H LABS Laboratory Tests 2 10/19/18 14:38: Bedside Glucose (Misc Panel) 291H 10/19/18 17:23: Bedside Glucose (Misc Panel) 309H 10/19/18 18:34: Bedside Glucose (Misc Panel) 356H 10/19/18 20:46: Bedside Glucose (Misc Panel) 157H 10/19/18 23:53: Bedside Glucose (Misc Panel) 57L 10/20/18 00:16: Bedside Glucose (Misc Panel) 94 10/20/18 01:01: Bedside Glucose (Misc Panel) 177H 10/20/18 04:58: Nucleated Red Blood Cells % (auto) 0.0, Anion Gap 4L, Glomerular Filtration Rate > 60.0, Blood Urea Nitrogen 19H, Creatinine 1.38H, Sodium Level 137#, Potassium Level 3.9#, Chloride Level 106, Carbon Dioxide Level 27, Calcium Level 7.7L 10/20/18 11:37: Bedside Glucose (Misc Panel) 314H CBC/BMP Laboratory Tests 10/20/18 04:58 Red Blood Count 3.56 L, Mean Corpuscular Volume 81.2, Mean Corpuscular Hemoglobin 27.2, Mean Corpuscular Hemoglobin Concent 33.6, Red Cell Distribution Width 14.6 H, Calcium Level 7.7 L CRISTOBAL LASSITER MD October 20, 2018 14:33
[2018-10-20] MEDS: LORazepam 2 MG TAB PO PRN (15:00)
[2018-10-20] MEDS ORDERED: LORazepam 2 MG/ML VIAL (J2060) IV STA (16:18)
[2018-10-20] MEDS ORDERED: hydrALAZINE INJ 20 MG/ML VIAL IV STA (16:58)
[2018-10-20] MEDS: QUEtiapine FUMARATE 200 MG TAB PO SCH (20:54)
[2018-10-20] MEDS: LEVEMIR (INSULIN DETEMIR) 1 UNITS/0.01ML SC SCH (21:07)
[2018-10-21] VITALS (14 sets, daily range): BP systolic 137–190; BP diastolic 69–100
[2018-10-21] MEDS ORDERED: hydrALAZINE INJ 20 MG/ML VIAL IV PRN
[2018-10-21] MEDS: NICOTINE POLACRILEX 2 MG GUM PO PRN ×6 (04:09→23:55)
[2018-10-21] MEDS: LORazepam 2 MG TAB PO PRN (04:09)
[2018-10-21 05:32] LABS: HEMATOCRIT 30.3 % (42.0-52.0); HEMOGLOBIN 10.2 g/dl (13.5-17.5); MEAN CORPUSCULAR HEMOGLOBIN 26.9 pg (27.0-33.0); MEAN CORPUSCULAR HGB CONC 33.7 g/dl (32.0-36.5); MEAN CORPUSCULAR VOLUME 79.9 fl (80.0-96.0); PLATELET COUNT, AUTOMATED 194 10^3/uL (150-450); RED BLOOD COUNT 3.79 10^6/uL (4.30-6.10); WHITE BLOOD COUNT 5.6 10^3/uL (4.0-10.0)
[2018-10-21 05:52] LABS: BLOOD UREA NITROGEN 15 MG/DL (7-18); CALCIUM LEVEL 7.6 MG/DL (8.5-10.1); CARBON DIOXIDE LEVEL 27 MEQ/L (21-32); CHLORIDE LEVEL 103 MEQ/L (98-107); CREATININE FOR GFR 1.37 MG/DL (0.70-1.30); GLOMERULAR FILTRATION RATE > 60.0 (>60); GLUCOSE, FASTING 386 MG/DL (70-100); POTASSIUM SERUM 3.7 MEQ/L (3.5-5.1); SODIUM LEVEL 137 MEQ/L (136-145)
[2018-10-21] MEDS: HEPARIN SOD (PORCINE) 5000 UNITS/ML VIAL SC SCH ×3 (05:59→21:24)
[2018-10-21] MEDS: HumaLOG INSULIN (NovoLOG) PER UNIT SC SCH ×4 (08:57→21:25)
[2018-10-21] MEDS: THIAMINE 100 MG TAB PO SCH ×2 (08:58→21:24)
[2018-10-21] MEDS: FOLIC ACID 1 MG TAB PO SCH (08:58)
[2018-10-21] MEDS: hydroCHLOROthiazide 25 MG TAB PO SCH (08:58)
[2018-10-21] MEDS: MULTIVITAMINS/MINERALS THERAP 1 TAB PO SCH (08:58)
[2018-10-21] MEDS: LISINOPRIL 40 MG TAB PO SCH (08:58)
--- NOTE | 2018-10-21 09:58 | IPNPDOC ---
Date Seen The patient was seen on 10/21/18. Progress Note SUBJECTIVE: Patient reported feeling unchanged. No physical complaints but a lot of things on his mind. BP labile, hypertensive overnight. OBJECTIVE PHYSICAL EXAMINATION: VITAL SIGNS: Please see below. General: No acute distress, Alert Eyes: Normal sclera, EOMI, NELLY HENT: Atraumatic, neck supple, moist mucous membranes Cardiovascular: Normal rate, normal rhythm. No murmurs appreciated. Pulmonary: Clear to auscultation b/l, no wheezing GI: Soft, nontender, nondistended Skin: Warm and dry Neuro: CN grossly intact. No focal deficits. Strengths equal b/l. Psych: oriented x 3 LABORATORY DATA, IMAGING STUDIES, MICROBIOLOGY: Please see below. DVT prophylaxis ordered?: HSQ ASSESSMENT AND PLAN: 1. Schizoaffective disorder/PTSD/Bipolar - Actively hearing voices with suicidal ideation. - Noncompliant with medications. - Resume home medications. - 1:1 observation. - Once medically stable, plan to discharge to [facility] inpatient. 2. Hypertension - Uncontrolled. - Exacerbated by cocaine/meth along with medication noncompliance. - Improved but very labile. - c/w home meds and monitor BP. On lisinopril 40 mg daily, Procardia XL 60 daily added. Avoid BB given cocaine use. 3. BELLE - Improving - Likely from dehydration with heavy alcohol and drug use. - s/p 2L IVF bolus in ER, will continue maintenance hydration. 4. Hyperglycemia - 2/2 insulin noncompliance. - 2 IVF boluses given in ER. c/w maintenance fluids. - Resume insulin SQ. - On Levemir 25 units SQ daily. Patient reports taking it sliding scale at home, around 50-65 units each night? reports a different number each time. - Increase to 35 units qhs as he has been running high and had no hypoglycemic episode yesterday. Dispo: To [facility] A-FIB/CHADSVASC A-FIB History Current/History of A-Fib/PAF?: No VS, I&O, 24H, Fishbone Vital Signs/I&O Vital Signs Date Time Temp Pulse Resp B/P (MAP) Pulse Ox O2 Delivery O2 Flow Rate FiO2 10/21/18 08:21 77 144/81 10/21/18 08:00 98.6 18 99 10/19/18 17:19 Room Air I&O- Last 24 Hours up to 6 AM 10/21/18 06:00 Intake Total 3945 ml Output Total 700 ml Balance 3245 ml Laboratory Data 24H LABS Laboratory Tests 2 10/20/18 11:37: Bedside Glucose (Misc Panel) 314H 10/20/18 17:39: Bedside Glucose (Misc Panel) 140H 10/20/18 20:51: Bedside Glucose (Misc Panel) 330H 10/20/18 22:06: Bedside Glucose (Misc Panel) 394H 10/21/18 05:04: Nucleated Red Blood Cells % (auto) 0.0, Anion Gap 7L, Glomerular Filtration Rate > 60.0, Blood Urea Nitrogen 15, Creatinine 1.37H, Sodium Level 137, Potassium Level 3.7, Chloride Level 103, Carbon Dioxide Level 27, Calcium Level 7.6L CBC/BMP Laboratory Tests 10/21/18 05:04 Red Blood Count 3.79 L, Mean Corpuscular Volume 79.9 L, Mean Corpuscular Hemoglobin 26.9 L, Mean Corpuscular Hemoglobin Concent 33.7, Red Cell Distribution Width 14.6 H, Calcium Level 7.6 L CRISTOBAL LASSITER MD October 21, 2018 09:58
[2018-10-21] MEDS ORDERED: LEVEMIR (INSULIN DETEMIR) 1 UNITS/0.01ML SC ONE (10:00)
[2018-10-21] MEDS: NIFEdipine 30 MG XL TAB PO SCH (10:28)
[2018-10-21] MEDS ORDERED: LEVEMIR (INSULIN DETEMIR) 1 UNITS/0.01ML SC SCH (21:00)
[2018-10-21] MEDS: QUEtiapine FUMARATE 200 MG TAB PO SCH (21:24)
[2018-10-22] VITALS (10 sets, daily range): BP systolic 132–152; BP diastolic 69–89
[2018-10-22] MEDS: NICOTINE POLACRILEX 2 MG GUM PO PRN ×8 (04:19→23:51)
[2018-10-22 05:20] LABS: HEMATOCRIT 31.8 % (42.0-52.0); HEMOGLOBIN 10.8 g/dl (13.5-17.5); MEAN CORPUSCULAR HEMOGLOBIN 26.9 pg (27.0-33.0); MEAN CORPUSCULAR VOLUME 79.1 fl (80.0-96.0); PLATELET COUNT, AUTOMATED 210 10^3/uL (150-450); RED BLOOD COUNT 4.02 10^6/uL (4.30-6.10); WHITE BLOOD COUNT 6.7 10^3/uL (4.0-10.0)
[2018-10-22] MEDS: HEPARIN SOD (PORCINE) 5000 UNITS/ML VIAL SC SCH ×3 (05:42→21:11)
[2018-10-22 05:57] LABS: BLOOD UREA NITROGEN 16 MG/DL (7-18); CALCIUM LEVEL 8.4 MG/DL (8.5-10.1); CARBON DIOXIDE LEVEL 27 MEQ/L (21-32); CHLORIDE LEVEL 101 MEQ/L (98-107); CREATININE FOR GFR 1.43 MG/DL (0.70-1.30); GLOMERULAR FILTRATION RATE > 60.0 (>60); GLUCOSE, FASTING 359 MG/DL (70-100); POTASSIUM SERUM 3.7 MEQ/L (3.5-5.1); SODIUM LEVEL 135 MEQ/L (136-145)
[2018-10-22] MEDS ORDERED: LEVEMIR (INSULIN DETEMIR) 1 UNITS/0.01ML SC ONE (08:00)
[2018-10-22] MEDS: HumaLOG INSULIN (NovoLOG) PER UNIT SC SCH ×4 (08:30→21:13)
[2018-10-22] MEDS: LISINOPRIL 40 MG TAB PO SCH (08:31)
[2018-10-22] MEDS: MULTIVITAMINS/MINERALS THERAP 1 TAB PO SCH (08:31)
[2018-10-22] MEDS: FOLIC ACID 1 MG TAB PO SCH (08:31)
[2018-10-22] MEDS: hydroCHLOROthiazide 25 MG TAB PO SCH (08:31)
[2018-10-22] MEDS: NIFEdipine 30 MG XL TAB PO SCH (08:31)
--- NOTE | 2018-10-22 10:21 | IPNPDOC ---
Date Seen The patient was seen on 10/22/18. Progress Note SUBJECTIVE: Patient reported feeling unchanged. Always states that he feels unwell because of everything that is going on but no physical complaints. BP significantly improved with addition of Nifidipine. BS elevated and no episode of hypoglycemia noted overnight. OBJECTIVE PHYSICAL EXAMINATION: VITAL SIGNS: Please see below. General: No acute distress, Alert Eyes: Normal sclera, EOMI, NELLY HENT: Atraumatic, neck supple, moist mucous membranes Cardiovascular: Normal rate, normal rhythm. No murmurs appreciated. Pulmonary: Clear to auscultation b/l, no wheezing GI: Soft, nontender, nondistended Skin: Warm and dry Neuro: CN grossly intact. No focal deficits. Strengths equal b/l. Psych: oriented x 3 LABORATORY DATA, IMAGING STUDIES, MICROBIOLOGY: Please see below. DVT prophylaxis ordered?: HSQ ASSESSMENT AND PLAN: 1. Schizoaffective disorder/PTSD/Bipolar - Actively hearing voices with suicidal ideation. - Noncompliant with medications. - Resumed home medications. - c/w 1:1 observation. - Once medically stable, plan to discharge to [facility] inpatient. Aiming for tomorrow once BS better controlled. 2. Hypertension - Exacerbated by cocaine/meth along with medication noncompliance. - c/w home med Lisinopril 40 mg daily and Procardia 60 mg added with improvement. - c/w Avoiding BB given cocaine use. 3. BELLE - Improving - Likely from dehydration with heavy alcohol and drug use. - s/p 2L IVF bolus in ER. 4. Hyperglycemia - 2/2 insulin noncompliance. - Resume insulin SQ. Was discharged on 25 units SQ levemir last visit but reports taking between 50-65 units qHS at home, number changes each time asked. - Had several episodes of hypoglycemia on 25 units on presentation but likely due to not eating. Has been high in 300s with uptitrating of Levemir. - Will give 50 units today and if improve, will d/c to [facility] tomorrow. Dispo: To [facility] A-FIB/CHADSVASC A-FIB History Current/History of A-Fib/PAF?: No VS, I&O, 24H, Fishbone Vital Signs/I&O Vital Signs Date Time Temp Pulse Resp B/P (MAP) Pulse Ox O2 Delivery O2 Flow Rate FiO2 10/22/18 08:31 139/86 10/22/18 08:00 97.3 83 18 98 10/19/18 17:19 Room Air I&O- Last 24 Hours up to 6 AM 10/22/18 06:00 Intake Total 2840 ml Output Total 900 ml Balance 1940 ml Laboratory Data 24H LABS Laboratory Tests 2 10/21/18 12:11: Bedside Glucose (Misc Panel) 309H 10/21/18 17:13: Bedside Glucose (Misc Panel) 344H 10/21/18 21:13: Bedside Glucose (Misc Panel) 367H 10/22/18 04:57: Nucleated Red Blood Cells % (auto) 0.0, Anion Gap 7L, Glomerular Filtration Rate > 60.0, Blood Urea Nitrogen 16, Creatinine 1.43H, Sodium Level 135L, Potassium Level 3.7, Chloride Level 101, Carbon Dioxide Level 27, Calcium Level 8.4L CBC/BMP Laboratory Tests 10/22/18 04:57 Red Blood Count 4.02 L, Mean Corpuscular Volume 79.1 L, Mean Corpuscular Hemoglobin 26.9 L, Mean Corpuscular Hemoglobin Concent 34.0, Red Cell Distribution Width 14.5, Calcium Level 8.4 L CRISTOBAL LASSITER MD October 22, 2018 10:21
[2018-10-22] MEDS ORDERED: LEVEMIR (INSULIN DETEMIR) 1 UNITS/0.01ML SC SCH ×2 (21:00)
[2018-10-22] MEDS: QUEtiapine FUMARATE 200 MG TAB PO SCH (21:11)
[2018-10-23] MEDS ORDERED: traZODone 50 MG TAB PO ONE (00:15)
[2018-10-23 04:00] VITALS: BP_SYST 141; BP_SYST 148; BP_DIAS 70; BP_DIAS 84
[2018-10-23 04:57] LABS: HEMATOCRIT 32.1 % (42.0-52.0); HEMOGLOBIN 10.8 g/dl (13.5-17.5); MEAN CORPUSCULAR HEMOGLOBIN 26.5 pg (27.0-33.0); MEAN CORPUSCULAR HGB CONC 33.6 g/dl (32.0-36.5); MEAN CORPUSCULAR VOLUME 78.9 fl (80.0-96.0); PLATELET COUNT, AUTOMATED 212 10^3/uL (150-450); RED BLOOD COUNT 4.07 10^6/uL (4.30-6.10); WHITE BLOOD COUNT 6.9 10^3/uL (4.0-10.0)
[2018-10-23] MEDS: HEPARIN SOD (PORCINE) 5000 UNITS/ML VIAL SC SCH ×2 (05:41→13:32)
[2018-10-23 05:46] LABS: BLOOD UREA NITROGEN 19 MG/DL (7-18); CALCIUM LEVEL 8.4 MG/DL (8.5-10.1); CARBON DIOXIDE LEVEL 27 MEQ/L (21-32); CHLORIDE LEVEL 103 MEQ/L (98-107); CREATININE FOR GFR 1.38 MG/DL (0.70-1.30); FERRITIN 203 NG/ML (26-388); GLOMERULAR FILTRATION RATE > 60.0 (>60); GLUCOSE, FASTING 198 MG/DL (70-100); IRON (FE) 69 UG/DL (65-175); PERCENT SATURATION 27.2 % (19.7-50.0); POTASSIUM SERUM 3.4 MEQ/L (3.5-5.1); SODIUM LEVEL 137 MEQ/L (136-145); TOTAL IRON BINDING CAPACITY 254 UG/DL (250-450)
[2018-10-23] MEDS: NICOTINE POLACRILEX 2 MG GUM PO PRN ×3 (07:52→14:06)
[2018-10-23 08:00] VITALS: BP 138/90
[2018-10-23] MEDS ORDERED: SLF 3 ML SYR IV PRN (08:45)
[2018-10-23 08:59] VITALS: BP 138/90
[2018-10-23] MEDS: LISINOPRIL 40 MG TAB PO SCH (08:59)
[2018-10-23] MEDS: hydroCHLOROthiazide 25 MG TAB PO SCH (08:59)
[2018-10-23] MEDS: MULTIVITAMINS/MINERALS THERAP 1 TAB PO SCH (08:59)
[2018-10-23] MEDS: FOLIC ACID 1 MG TAB PO SCH (08:59)
[2018-10-23] MEDS: NIFEdipine 30 MG XL TAB PO SCH (08:59)
[2018-10-23] MEDS: HumaLOG INSULIN (NovoLOG) PER UNIT SC SCH ×2 (09:00→13:32)
[2018-10-23] MEDS ORDERED: POTASSIUM CHLORIDE 10 MEQ SR TABLET PO ONE (10:00)
[2018-10-23 10:23] LABS: FOLATE 17.7 NG/ML (>5.4)
[2018-10-23] MEDS ORDERED: INSUDET SC ×2 (11:08→12:23)
[2018-10-23 12:00] VITALS: BP 152/92
--- NOTE | 2018-10-23 12:21 | DS.PDOC ---
Discharge Summary General Date of Admission October 19, 2018 at 14:48 Date of Discharge 10/23/18 Attending Physician: CRISTOBAL LASSITER MD Discharge Summary PROCEDURES PERFORMED DURING STAY: [None]. ADMITTING DIAGNOSES: 1. Suicidal Ideation 2. Uncontrolled HTN 3. IDDM 4. Schizoaffective disorder 5. PTSD/Bipolar 6. BELLE DISCHARGE DIAGNOSES: 1. Suicidal Ideation 2. Uncontrolled HTN 3. IDDM 4. Schizoaffective disorder 5. PTSD/Bipolar 6. BELLE COMPLICATIONS/CHIEF COMPLAINT: Hypertensive, Suicidal ideation. HISTORY OF PRESENT ILLNESS: "Patient is a 48-year-old male with past medical history of schizoaffective disorder, bipolar, PTSD, IDDM, polysubstance abuse, and hypertension noncomplia nt with medications presented to ER with complaint of hearing voices with suicidal ideation. Patient reports that he has stopped taking medications whenever he feels good and cause him to hear voices telling him to her himself. He stated he has been hearing voices all day today and had used multiple drugs prior to coming into the ER including meth, cocaine, Carmenza and drink a lot of alcohol. He was found to be hypertensive, tachycardic and hyperglycemic upon arrival. He was given some Ativan in the ER with improvement in HR and blood pressure to 180s systolic. He reports still hearing voices telling him to hurt himself but otherwise denies any physical complaints including nausea, vomiting, abdominal pain, chest pain or shortness of breath." HOSPITAL COURSE: Patient presented with suicidal ideation and admitted for medical stabilization for uncontrolled hypertension and blood sugar management. On presentation patient was noted to have blood pressure in 200s systolic due to recent poly substance use and noncompliance with medication. He was on lisinopril 40 mg at home that was not sufficient to control his blood pressure and nifedipine was added with significant improvement. BS was noted to be high and then low the night of admission dropping down into the 20s-50s at 25 units of Levemir daily. However, after admission, patient's BS spike rapidly as he maintains a regular diet and was slowly titrated up to 50 units Levemir qHS. BS now 198 this morning without hypoglycemic episode. Will discharge patient to [facility] for further assessment and management and will likely need a hospitalist consult for continue monitoring of BS. He denies any physical complaints just reports having a lot of thoughts and hearing voices. DISCHARGE MEDICATIONS: Please see below. ALLERGIES: Please see below. PHYSICAL EXAMINATION ON DISCHARGE: VITAL SIGNS: Please see below. General: No acute distress, Alert Eyes: Normal sclera, EOMI, NELLY HENT: Atraumatic, neck supple, moist mucous membranes Cardiovascular: Normal rate, normal rhythm. No murmurs appreciated. Pulmonary: Clear to auscultation b/l, no wheezing GI: Soft, nontender, nondistended Skin: Warm and dry Neuro: CN grossly intact. No focal deficits. Strengths equal b/l. Psych: oriented x 3 LABORATORY DATA: Please see below. IMAGING: None ACTIVITY: [As tolerated]. DIET: Diabetic diet DISCHARGE PLAN: to [facility] health unit DISPOSITION: [facility]. DISCHARGE INSTRUCTIONS: f/u with PCP within 1 week post discharge from [facility] ITEMS TO FOLLOWUP ON ON OUTPATIENT: None DISCHARGE CONDITION: [Stable]. TIME SPENT ON DISCHARGE: 35 minutes. Vital Signs/I&Os Vital Signs Date Time Temp Pulse Resp B/P (MAP) Pulse Ox O2 Delivery O2 Flow Rate FiO2 10/23/18 08:59 138/90 10/23/18 08:00 98.1 94 18 99 10/19/18 17:19 Room Air I&O- Last 24 Hours up to 6 AM 10/23/18 06:00 Intake Total 1650 ml Output Total 0 ml Balance 1650 ml Laboratory Data Labs 24H Laboratory Tests 2 10/22/18 12:49: Bedside Glucose (Misc Panel) 291H 10/22/18 16:24: Bedside Glucose (Misc Panel) 265H 10/22/18 20:49: Bedside Glucose (Misc Panel) 405H 10/23/18 04:47: Nucleated Red Blood Cells % (auto) 0.0, Anion Gap 7L, Glomerular Filtration Rate > 60.0, Blood Urea Nitrogen 19H, Creatinine 1.38H, Sodium Level 137, Potassium Level 3.4L, Chloride Level 103, Carbon Dioxide Level 27, Calcium Level 8.4L, Iron Level 69, Total Iron Binding Capacity 254, Transferrin % Saturation 27.2, Ferritin 203 10/23/18 07:42: Vitamin B12 Level 590, Folate 17.7 10/23/18 11:22: Bedside Glucose (Misc Panel) 295H CBC/BMP Laboratory Tests 10/23/18 04:47 Red Blood Count 4.07 L, Mean Corpuscular Volume 78.9 L, Mean Corpuscular Hemoglobin 26.5 L, Mean Corpuscular Hemoglobin Concent 33.6, Red Cell Distribution Width 14.3, Calcium Level 8.4 L FSBS Laboratory Tests Test 10/22/18 12:49 10/22/18 16:24 10/22/18 20:49 10/23/18 11:22 Range/Units Bedside Glucose (Misc Panel) 291 265 405 295 70-105 MG/DL Discharge Medications Scheduled Hydrochlorothiazide (Hydrochlorothiazide) 25 Mg Tab, 25 MG PO DAILY, (Reported) Insulin Detemir (Levemir) 100 Unit/1 Ml Vial, 50 UNITS SC QHS Insulin Human Lispro (Humalog) 100 Unit/1 Ml Vial, 1 DOSE SC QHS, (Reported) 0-250: 0 units, 251-300: 2 Units, 301-350: 4 units, 351-400: 6 units, >400: 8 units Insulin Human Lispro (Humalog) 100 Unit/1 Ml Vial, 1 DOSE SC AC, (Reported) 0-100: 0 units, 101-150: 2 units, 151-200: 4 units, 201-250: 6 units, 251- 300: 8 units, 301-350: 10 units, 351-400: 12 units, >400: 14 units Lisinopril (Lisinopril) 40 Mg Tab, 40 MG PO DAILY, (Reported) Potassium Phos/Sodium Phos (Phos-Nak Packet) 1 Each Powd.pack, 1 PKT PO QID, (Reported) Quetiapine Fumarate (Seroquel) 400 Mg Tab, 400 MG PO QPM, (Reported) Allergies Coded Allergies: No Known Allergies (Unverified , 10/19/18) CRISTOBAL LASSITER MD October 23, 2018 12:21
[2018-10-23] MEDS ORDERED: LEVEMIR (INSULIN DETEMIR) 1 UNITS/0.01ML SC ONE (13:00)
[2018-10-23] MEDS ORDERED: SLF 3 ML SYR IV SCH (14:00)
[2018-10-23] MEDS ORDERED: LEVEMIR (INSULIN DETEMIR) 1 UNITS/0.01ML SC SCH (21:00)
[2018-10-23] MEDS ORDERED: traZODone 50 MG TAB PO SCH (21:00)
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
== END 2018-10-23 15:17 | DRG 918 ==
LOC: M ED 10:47 → EDBD 10:47 → M ED INP 14:48 → M PCU 17:46
PROVIDERS: ADMIT Student in an Organized Health Care Education/Training Program; ATTEND Student in an Organized Health Care Education/Training Program
DX: T43.622A Poisoning by amphetamines, intentional self-harm, initial encounter (principal); N17.9 Acute kidney failure, unspecified; R45.851 Suicidal ideations; T40.5X2A Poisoning by cocaine, intentional self-harm, initial encounter; T43.642A Poisoning by ecstasy, intentional self-harm, initial encounter; I10 Essential (primary) hypertension; E11.65 Type 2 diabetes mellitus with hyperglycemia; F43.10 Post-traumatic stress disorder, unspecified; F31.9 Bipolar disorder, unspecified; Z91.19 Patient's noncompliance with other medical treatment and regimen; Z79.4 Long term (current) use of insulin; Z79.899 Other long term (current) drug therapy; E86.0 Dehydration; Z91.14 Patient's other noncompliance with medication regimen

== ENCOUNTER 2018-10-23 13:46 | Inpatient (IN) | payer MEDICARE ==
[~2018-10-23] VITALS: Ht 175.3 cm; Wt 94.4 kg
[2018-10-23] MEDS ORDERED: MAALOX 30 ML SUSP *UDC PO PRN (14:30)
[2018-10-23] MEDS ORDERED: MOM 30ML SUSPENSION UDC PO PRN (14:30)
[2018-10-23] MEDS ORDERED: ACETAMINOPHEN TAB 650MG DOSE (2X325MG) PO PRN (14:30)
[2018-10-23] MEDS ORDERED: GLUCOSE 4 GM CHEW TABLET PO PRN (14:30)
[2018-10-23 15:20] VITALS: BP 142/76
[2018-10-23] MEDS: HumaLOG INSULIN (NovoLOG) PER UNIT SC SCH ×2 (17:25→21:00)
[2018-10-23] MEDS: NICOTINE POLACRILEX 2 MG GUM PO PRN ×2 (17:26→19:44)
[2018-10-23] MEDS: OLANZapine ORAL DISINTEGRATING TAB 5MG PO PRN (19:31)
[2018-10-23] MEDS ORDERED: LEVEMIR (INSULIN DETEMIR) 1 UNITS/0.01ML SC SCH (21:00)
[2018-10-23] MEDS: QUEtiapine FUMARATE 200 MG TAB PO SCH (21:20)
[2018-10-23] MEDS: traZODone 50 MG TAB PO SCH (21:20)
[2018-10-24] MEDS: OLANZapine ORAL DISINTEGRATING TAB 5MG PO PRN ×3 (01:41→23:39)
[2018-10-24] MEDS: NICOTINE POLACRILEX 2 MG GUM PO PRN ×7 (01:44→23:45)
[2018-10-24 06:38] VITALS: BP 131/81
[2018-10-24] MEDS: HumaLOG INSULIN (NovoLOG) PER UNIT SC SCH ×4 (06:41→21:48)
[2018-10-24] MEDS: LISINOPRIL 40 MG TAB PO SCH (09:03)
[2018-10-24] MEDS: FOLIC ACID 1 MG TAB PO SCH (09:04)
[2018-10-24] MEDS: hydroCHLOROthiazide 25 MG TAB PO SCH (09:04)
[2018-10-24] MEDS: NIFEdipine 30 MG XL TAB PO SCH (09:04)
[2018-10-24] MEDS: MULTIVITAMINS/MINERALS THERAP 1 TAB PO SCH (09:04)
[2018-10-24] MEDS: GABAPENTIN 400 MG CAP PO SCH ×3 (11:44→21:35)
[2018-10-24] MEDS: QUEtiapine FUMARATE 50 MG TAB PO SCH (11:45)
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
[2018-10-24 18:00] VITALS: BP 138/66
[2018-10-24] MEDS ORDERED: DIVALPROEX 500 MG TAB PO SCH (21:00)
[2018-10-24] MEDS ORDERED: LEVEMIR (INSULIN DETEMIR) 1 UNITS/0.01ML SC SCH (21:00)
[2018-10-24] MEDS ORDERED: PRAZOSIN 1 MG CAP PO SCH (21:00)
[2018-10-24] MEDS: traZODone 50 MG TAB PO SCH (21:35)
[2018-10-24] MEDS: QUEtiapine FUMARATE 200 MG TAB PO SCH (21:36)
[2018-10-25] MEDS: NICOTINE POLACRILEX 2 MG GUM PO PRN ×7 (02:52→23:06)
[2018-10-25 06:50] VITALS: BP 117/83
[2018-10-25] MEDS: HumaLOG INSULIN (NovoLOG) PER UNIT SC SCH ×4 (06:53→21:16)
[2018-10-25] MEDS: NIFEdipine 30 MG XL TAB PO SCH (08:19)
[2018-10-25] MEDS: GABAPENTIN 400 MG CAP PO SCH ×3 (08:19→20:56)
[2018-10-25] MEDS: hydroCHLOROthiazide 25 MG TAB PO SCH (08:19)
[2018-10-25] MEDS: LISINOPRIL 40 MG TAB PO SCH (08:19)
[2018-10-25] MEDS: MULTIVITAMINS/MINERALS THERAP 1 TAB PO SCH (08:19)
[2018-10-25] MEDS: FOLIC ACID 1 MG TAB PO SCH (08:19)
[2018-10-25] MEDS: QUEtiapine FUMARATE 50 MG TAB PO SCH (08:19)
[2018-10-25 11:41] VITALS: BP 131/80
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
[2018-10-25] MEDS ORDERED: SERTRALINE HCL 50 MG TAB PO ONE (16:00)
[2018-10-25 18:37] VITALS: BP 139/83
[2018-10-25] MEDS: traZODone 50 MG TAB PO SCH (20:55)
[2018-10-25] MEDS: DIVALPROEX 250 MG TAB PO SCH (20:56)
[2018-10-25] MEDS: QUEtiapine FUMARATE 100 MG TAB PO SCH (20:56)
[2018-10-25] MEDS: PRAZOSIN 1 MG CAP PO SCH (20:57)
[2018-10-25] MEDS ORDERED: DIVALPROEX 500 MG TAB PO SCH (21:00)
[2018-10-25] MEDS: LEVEMIR (INSULIN DETEMIR) 1 UNITS/0.01ML SC SCH (21:14)
[2018-10-26] MEDS: HumaLOG INSULIN (NovoLOG) PER UNIT SC SCH ×4 (06:12→21:16)
[2018-10-26] MEDS: NICOTINE POLACRILEX 2 MG GUM PO PRN ×7 (06:37→23:19)
[2018-10-26 06:41] VITALS: BP 107/55
[2018-10-26] MEDS: DIVALPROEX 250 MG TAB PO SCH ×2 (08:06→21:12)
[2018-10-26] MEDS: LISINOPRIL 40 MG TAB PO SCH (08:06)
[2018-10-26] MEDS: FOLIC ACID 1 MG TAB PO SCH (08:07)
[2018-10-26] MEDS: QUEtiapine FUMARATE 50 MG TAB PO SCH (08:07)
[2018-10-26] MEDS: hydroCHLOROthiazide 25 MG TAB PO SCH (08:07)
[2018-10-26] MEDS: NIFEdipine 30 MG XL TAB PO SCH (08:07)
[2018-10-26] MEDS: MULTIVITAMINS/MINERALS THERAP 1 TAB PO SCH (08:07)
[2018-10-26] MEDS: GABAPENTIN 400 MG CAP PO SCH (08:07)
[2018-10-26] MEDS ORDERED: DIVALPROEX 500 MG TAB PO SCH (09:00)
--- NOTE | 2018-10-26 14:42 | HPE ---
DATE OF ADMISSION: 10/23/2018 HISTORY OF PRESENT ILLNESS: Please refer to psychiatric history and evaluation for further details on this admission. This examination and history is intended for medical issues, which may need treatment, followup, or consult on this 48-year-old male who was transferred from the progressive care unit (PCU) after having been admitted and treated for hypertensive urgency. ALLERGIES: No known allergies. PRIMARY CARE PROVIDER: He states he currently has none. PAST MEDICAL HISTORY: Schizoaffective disorder. Bipolar. Posttraumatic stress disorder (PTSD). Insulin-dependent diabetes. Polysubstance abuse. Hypertension. Hypercholesterolemia. He has history of medication noncompliance. He has had multiple psychiatric hospitalizations. PAST SURGICAL HISTORY: None. SOCIAL HISTORY: He is single. He smokes one pack of cigarettes per day. He states he binge drinks alcohol occasionally. Last drink 10/19/2018. FAMILY HISTORY: Mother had schizoaffective disorder. HOME MEDICATIONS: - hydrochlorothiazide 25 mg by mouth daily - Levemir 60 units subcu nightly - lisinopril 40 mg by mouth daily - potassium/phospho-sodium one packet four times a day - Seroquel 400 mg by mouth every evening REVIEW OF SYSTEMS: No complaint of headache. No blurred or double vision. No fever. No chills. No tinnitus. No hoarseness. No difficulty swallowing. No lightheadedness. No vertigo. Cardiovascular: No complaints of chest pain, shortness of breath, palpitations, or edema. Respiratory: No chronic cough. No sputum production. No hemoptysis. No orthopnea. No wheeze. Gastrointestinal (GI): No nausea, vomiting, or diarrhea. No hematochezia. No melena. (cut off) abdominal pain. Genitourinary (): No hematuria, dysuria, or frequency. Musculoskeletal: No joint redness or swelling. Endocrine: History of insulin-dependent diabetes. Hematological: No history of anemia. Neurological: No history of seizures. Psychological: History of command auditory hallucinations to kill himself. History of schizoaffective disorder, bipolar disorder, PTSD. EKG on file, done 10/19/2018: Sinus tachycardia, possible left atrial enlargement, similar to 09/17/2018, rate 104. PHYSICAL EXAM: 48-year-old cooperative male in no acute distress. Blood pressure 131/81, pulse 73, respirations 18, temperature 98, oxygen saturation (O2 sat) 96% on room air. Patient is alert and oriented times three. Pupils equal and reactive to light. Extraocular movements intact. Cornea and sclerae clear. Conjunctivae normal. No facial asymmetry. Pharynx, tongue, gums pink and moist. Tongue is midline. Neck: Is supple without lymphadenopathy. No thyromegaly. No goiter. Carotids 2+ without bruits. Chest: Clear to auscultation without wheeze or retraction. Heart: Regular. Abdomen: Benign. Bowel sounds positive. Genital/Rectal: Not done. Extremities: Show equal strength. Full range of motion. No cyanosis, clubbing, or edema. Peripheral pulses equal and palpable bilaterally. Skin: Is warm and dry. IMPRESSION/PLAN: 1. Psychiatric. Plan per psychiatry. 2. Hypertension, now clinically stable. Continue lisinopril. 3. Insulin-dependent diabetes. Sugar still running 200-300. Will continue the sliding scale with coverage. Will increase his basal insulin Levemir to 64 units subcu. Continue consistent carbohydrate diet. Diabetic education. 4. Alcohol binge drinking. Monitor for withdrawal. 5. Smoking cessation. Patient is utilizing nicotine gum.
--- NOTE | 2018-10-26 14:56 | MHIPNPDOC ---
[facility] Progress Note Progress Note DATE OF SERVICE: 10/26/18 HISTORY: shaunna is a 48 -year-old , male, who, according to Dr. Hanson: "This is a 48-year-old man with a history of schizoaffective disorder and poly substance abuse who was admitted to the medical service because of hypertension. He is diabetic and his blood glucose was low and currently he is medically stable. The patient had initially presented to the emergency room and was complaining of command auditory hallucinations to kill himself, but because of his medical condition he was admitted to the medical service. When I see the patient today, he states, "I am having really a lot of bad anxiety and my thoughts are racing". He states that he is having suicidal ideations and that he has command auditory hallucinations to tell him to hurt himself. This patient has a history of multiple psychiatric hospitalizations and he was actually admitted recently to [facility] on 09/08/2018. The patient states that after he was discharged from there he was not able to physically get to his medications because he finally found a place to live, but [place] of town. He says for the samem reason he was not able to do any followup with any providers. The patient was actually discharged with a diagnosis of schizophrenia paranoid type, post traumatic stress disorder (PTSD) and poly substance dependence. The patient was discharged on Seroquel 150 mg every a.m. and 500 mg every bedtime, Depakote 500 mg at bedtime, prazosin 2 mg at bedtime, and gabapentin 400 mg three times a day". VITAL SIGNS: See below. NEW TEST RESULTS: See below CURRENT MEDICATIONS: See below. MENTAL STATUS EXAMINATION: General Appearance: well groomed, appears stated age, hospital scubs/clothing Build: average Demeanor: preoccupied, very figety Eye Contact: poor Activity: anxious Behavior: cooperative, restless very fidgety Speech: clear, spontaneous, reg/rate,rhythm,volume Mood: depressed, anxious, irritable Affect: constricted, appropriate, congruent, anxious, irritable Thought Process: logical/linear Thought Content (Delusions): he feels paranoid (that's why he sleeps with his bathroom light on) Thought Content (Other): preoccupied, phobic, appears paranoid, reports fleeting suicidal thoughts, denies homicidal thoughts Thought Content (Aggressive): none reported Perception (Hallucinations): auditory, he heard voices that woke him up last night, around midnight Perception (Other): nightmares, flashbacks and intrusive thoughts last night (about 02/14) Cognition (Impairment of): none reported Cognition(Intelligence Est.): average Oriented: Awake, Alert, Oriented times three Insight: fair Judgment: Poor Psychosis: Psychotic Perceptions ( he denies them today) Diagnoses 1. Unspecified psychotic disorder, r/o Schizoaffective d/o 2. PTSD 3. Polysubstance abuse 4. ROBSON ASSESSMENT: Patient reports he is not ready for discharge yet, he is hypervigilant, he rocks constantly back and forth in his seat, he still has very poor eye contact, still reports fleeting suicidal thoughts and auditory hallucinations, nightmares, flashbacks and intrusive thoughts. He tells me that he met with staff from the mental health association and they told him they would help, I told him that our discharge planners were working on volunteer transportation too. MANAGEMENT PLAN: Increase Depakote to 750 mgs PO BID Increase Seroquel to 500 mgs Po qhs, continue with 75 mgs po qam Increase Prazosin to 4 mgs PO QHS continue Zoloft 75 mgs Po daily TIME SPENT: 20 minutes. Vital Signs Vital Signs Date Time Temp Pulse Resp B/P (MAP) Pulse Ox O2 Delivery O2 Flow Rate FiO2 10/26/18 08:07 136/83 10/26/18 06:41 97.6 73 14 Laboratory Data 24H Labs Laboratory Tests 2 10/25/18 16:49: Bedside Glucose (Misc Panel) 381H 10/25/18 21:03: Bedside Glucose (Misc Panel) 284H 10/26/18 06:06: Bedside Glucose (Misc Panel) 302H 10/26/18 12:10: Bedside Glucose (Misc Panel) 309H Current Medications Current Medications Acetaminophen (Tylenol Tab) 650 mg Q6HP PRN PO HEADACHE or DISCOMFORT; Start 10/23/18 at 14:30 Al Hydrox/Mg Hydrox/Simethicone (Mylanta) 30 ml Q4HP PRN PO HEARTBURN/INDIGESTION; Start 10/23/18 at 14:30 Divalproex Sodium (Depakote) 500 mg QAM PO ; Start 10/26/18 at 09:00; Status Cancel Divalproex Sodium (Depakote) 500 mg QHS PO Last administered on 10/24/18at 21:35; Start 10/24/18 at 21:00; Stop 10/25/18 at 13:51; Status DC Divalproex Sodium (Depakote) 750 mg BID PO Last administered on 10/26/18at 08:06; Start 10/25/18 at 21:00 Divalproex Sodium (Depakote) 1,000 mg QHS PO ; Start 10/25/18 at 21:00; Status Cancel Folic Acid (Folic Acid) 1 mg DAILY PO Last administered on 10/26/18at 08:07; Start 10/24/18 at 09:00 Gabapentin (Neurontin) 400 mg TID PO Last administered on 10/26/18at 08:07; Start 10/24/18 at 09:00 Glucose (Glucose) 16 GM ASDIRECTED PRN PO SEE LABEL COMMENTS; Start 10/23/18 at 14:30 Hydrochlorothiazide (Hydrodiuril) 25 mg DAILY PO Last administered on 10/26/18at 08:07; Start 10/24/18 at 09:00 Insulin Detemir (Levemir Insulin) 60 units QHS SC Last administered on 10/23/18at 21:27; Start 10/23/18 at 21:00; Stop 10/24/18 at 19:59; Status DC Insulin Detemir (Levemir Insulin) 64 units QHS SC Last administered on 10/24/18at 21:35; Start 10/24/18 at 21:00; Stop 10/25/18 at 08:34; Status DC Insulin Detemir (Levemir Insulin) 66 units QHS SC Last administered on 10/25/18at 21:14; Start 10/25/18 at 21:00 Insulin Human Lispro (HumaLOG INSULIN) See Protocol Table AC SC Last administ ered on 10/26/18at 12:21; Start 10/23/18 at 17:30 Insulin Human Lispro (HumaLOG INSULIN) See Protocol Table QHS SC Last administ ered on 10/25/18at 21:16; Start 10/23/18 at 21:00 Lisinopril (Prinivil) 40 mg DAILY PO Last administered on 10/26/18 08:06; St art 10/24/18 at 09:00 Magnesium Hydroxide (Milk Of Magnesia) 30 ml DAILYPRN PRN PO CONSTIPATION; Start 10/23/18 at 14:30 Multivitamins (Theragram-M) 1 tab DAILY PO Last administered on 10/26/18 08:07; Start 10/24/18 at 09:00 Nicotine (Nicorette) 2 mg Q2HP PRN PO SMOKING CESSATION Last administered on 10/24/18 09:04; Start 10/23/18 at 14:30; Stop 10/24/18 at 10:45; Status DC Nicotine (Nicorette) 4 mg Q2HP PRN PO NICOTINE WITHDRAWAL Last administered on 10/26/18 12:22; Start 10/24/18 at 10:30 Nifedipine (Procardia Xl) 60 mg DAILY PO Last administered on 10/26/18 08:07; Start 10/24/18 at 09:00 Olanzapine (ZyPREXA ZYDIS) 5 mg Q4HP PRN PO ANXIETY/AGITATION Last administered on 10/24/18 23:39; Start 10/23/18 at 14:30 Prazosin HCl (Minipress) 2 mg QHS PO Last administered on 10/24/18 21:38; Start 10/24/18 at 21:00; Stop 10/25/18 at 14:02; Status DC Prazosin HCl (Minipress) 4 mg QHS PO Last administered on 10/25/18 20:57; Start 10/25/18 at 21:00 Quetiapine Fumarate (SEROquel) 75 mg QAM PO Last administered on 10/26/18 08:07; Start 10/24/18 at 09:00 Quetiapine Fumarate (SEROquel) 400 mg QHS PO Last administered on 10/24/18 21:36; Start 10/23/18 at 21:00; Stop 10/25/18 at 13:51; Status DC Quetiapine Fumarate (SEROquel) 500 mg QHS PO Last administered on 10/25/18 20:56; Start 10/25/18 at 21:00 Trazodone HCl (Desyrel) 50 mg QHS PO Last administered on 5/22/19at 20:55; Start 10/23/18 at 21:00 Allergies Coded Allergies: No Known Allergies (Unverified , 10/19/18) A-FIB/CHADSVASC A-FIB History Current/History of A-Fib/PAF?: No Current PO Anticoag Therapy: No Age/Risk Factor Scoring CHADSVASC: CHADSVASC Response (Comments) Value Age Risk Factor Age < 65 years old 0 Gender Risk Factor Male 0 Hx of CHF No 0 Hx of HTN Yes 1 Hx of Stroke/TIA/or VTE No 0 Hx of Diabetes Yes 1 Hx of Vascular Disease No 0 Total 2 Treatment Treatment ordered: NONE Reason Anticoagulant not given: Not indicated/[id number] NATE TOLENTINO MD October 26, 2018 14:56
[2018-10-26] MEDS: SERTRALINE HCL 25 MG TABLET PO SCH (14:58)
[2018-10-26] MEDS: GABAPENTIN 300 MG CAP PO SCH ×2 (15:00→21:13)
[2018-10-26 18:07] VITALS: BP 156/93
[2018-10-26] MEDS: traZODone 50 MG TAB PO SCH (21:12)
[2018-10-26] MEDS: PRAZOSIN 1 MG CAP PO SCH (21:14)
[2018-10-26] MEDS: QUEtiapine FUMARATE 100 MG TAB PO SCH (21:15)
[2018-10-26] MEDS: LEVEMIR (INSULIN DETEMIR) 1 UNITS/0.01ML SC SCH (21:15)
[2018-10-27] MEDS: OLANZapine ORAL DISINTEGRATING TAB 5MG PO PRN (01:11)
[2018-10-27] MEDS: NICOTINE POLACRILEX 2 MG GUM PO PRN ×8 (01:13→23:21)
[2018-10-27] MEDS: HumaLOG INSULIN (NovoLOG) PER UNIT SC SCH ×4 (06:35→21:11)
[2018-10-27 06:43] VITALS: BP 136/83
[2018-10-27] MEDS: hydroCHLOROthiazide 25 MG TAB PO SCH (08:24)
[2018-10-27] MEDS: MULTIVITAMINS/MINERALS THERAP 1 TAB PO SCH (08:24)
[2018-10-27] MEDS: DIVALPROEX 250 MG TAB PO SCH ×2 (08:24→21:00)
[2018-10-27] MEDS: SERTRALINE HCL 25 MG TABLET PO SCH (08:24)
[2018-10-27] MEDS: LISINOPRIL 40 MG TAB PO SCH (08:24)
[2018-10-27] MEDS: FOLIC ACID 1 MG TAB PO SCH (08:25)
[2018-10-27] MEDS: NIFEdipine 30 MG XL TAB PO SCH (08:25)
[2018-10-27] MEDS: QUEtiapine FUMARATE 50 MG TAB PO SCH (08:25)
[2018-10-27] MEDS: GABAPENTIN 300 MG CAP PO SCH ×3 (08:25→21:00)
[2018-10-27 18:18] VITALS: BP 128/60
[2018-10-27] MEDS: QUEtiapine FUMARATE 100 MG TAB PO SCH (20:58)
[2018-10-27] MEDS: traZODone 50 MG TAB PO SCH (21:00)
[2018-10-27] MEDS: PRAZOSIN 1 MG CAP PO SCH (21:00)
[2018-10-27] MEDS: LEVEMIR (INSULIN DETEMIR) 1 UNITS/0.01ML SC SCH (21:11)
[2018-10-28] MEDS: NICOTINE POLACRILEX 2 MG GUM PO PRN ×7 (02:50→20:12)
[2018-10-28] MEDS: HumaLOG INSULIN (NovoLOG) PER UNIT SC SCH ×4 (06:42→22:15)
[2018-10-28 07:08] VITALS: BP 147/80
[2018-10-28 07:54] LABS: ALBUMIN 2.2 GM/DL (3.2-5.2); BILIRUBIN,TOTAL 0.2 MG/DL (0.2-1.0); CALCIUM LEVEL 8.1 MG/DL (8.5-10.1); CHOLESTEROL RISK RATIO 5.238 (<5); CREATININE FOR GFR 1.72 MG/DL (0.70-1.30); GLOMERULAR FILTRATION RATE 54.8 (>60); POTASSIUM SERUM 3.9 MEQ/L (3.5-5.1); TOTAL PROTEIN 6.9 GM/DL (6.4-8.2); VALPROIC ACID (DEPAKOTE) 45.1 UG/ML (50.0-100.0)
[2018-10-28] MEDS: FOLIC ACID 1 MG TAB PO SCH (08:16)
[2018-10-28] MEDS: MULTIVITAMINS/MINERALS THERAP 1 TAB PO SCH (08:16)
[2018-10-28] MEDS: LISINOPRIL 40 MG TAB PO SCH (08:16)
[2018-10-28] MEDS: GABAPENTIN 300 MG CAP PO SCH ×3 (08:16→21:42)
[2018-10-28] MEDS: SERTRALINE 100 MG TAB PO SCH (08:17)
[2018-10-28] MEDS: DIVALPROEX 250 MG TAB PO SCH ×2 (08:17→21:41)
[2018-10-28] MEDS: hydroCHLOROthiazide 25 MG TAB PO SCH (08:17)
[2018-10-28] MEDS: NIFEdipine 30 MG XL TAB PO SCH (08:17)
[2018-10-28] MEDS: QUEtiapine FUMARATE 50 MG TAB PO SCH (08:18)
--- NOTE | 2018-10-28 15:25 | MHIPNPDOC ---
[facility] Progress Note Progress Note DATE OF SERVICE: 10/28/18 HISTORY: 48-year-old male with depression and psychotic symptoms. VITAL SIGNS: See below. NEW TEST RESULTS: None. CURRENT MEDICATIONS: See below. MENTAL STATUS EXAMINATION: Patient is a 48-year old male, who is, presently suffering from anxiety, poor sleep, hearing voices and seeing things as well as pain. Speech: Is. Normal. Language skills are intact. Thought processes including:. No severe abnormalities. Thought content: . Abstract reasoning, and computation:. Poor abstraction. Description of associations:, Loose association. Description of abnormal or psychotic thoughts: Describes auditory and visual hallucination. Judgment:. Fair Insight: Limited. Orientation: Intact 3. Recent and remote memory: Intact. Attention span and concentration:. No disturbance of attention span and concentration. Language: As above. Fund of knowledge:. Intact. Mood: Anxious. Affect:, Congruent. DIAGNOSES: 1. Schizo affective disorder. ASSESSMENT: Patient being treated for schizoaffective disorder MANAGEMENT PLAN:. Patient requested change to Remeron from trazodone for sleep. TIME SPENT:, 30 minutes. Vital Signs Vital Signs Date Time Temp Pulse Resp B/P (MAP) Pulse Ox O2 Delivery O2 Flow Rate FiO2 10/28/18 08:17 147/80 10/28/18 07:08 98.1 106 18 Laboratory Data 24H Labs Laboratory Tests 2 10/27/18 16:37: Bedside Glucose (Misc Panel) 380H 10/27/18 20:59: Bedside Glucose (Misc Panel) 334H 10/28/18 05:49: Bedside Glucose (Misc Panel) 495H 10/28/18 05:52: Bedside Glucose (Misc Panel) 468H 10/28/18 07:05: Anion Gap 8, Glomerular Filtration Rate 54.8L, Blood Urea Nitrogen 24H, Creatinine 1.72H, Sodium Level 134L, Potassium Level 3.9, Chloride Level 100, Carbon Dioxide Level 26, Calcium Level 8.1L, Aspartate Amino Transf (AST/SGOT) 48H, Alanine Aminotransferase (ALT/SGPT) 120H, Alkaline Phosphatase 104, Total Bilirubin 0.2, Triglycerides Level 290H, LDL Cholesterol 120H, Total Protein 6.9, Albumin 2.2L, Albumin/Globulin Ratio 0.47L, Total Cholesterol 220H, Non-HDL Cholesterol (LDL + VLDL) 178, Total HDL Cholesterol 42, Cholesterol/HDL Ratio 5.238H, Valproic Acid (Depakene) Level 45.1L 10/28/18 11:36: Bedside Glucose (Misc Panel) 219H CBC/BMP Laboratory Tests 10/28/18 07:05 Calcium Level 8.1 L, Aspartate Amino Transf (AST/SGOT) 48 H, Alanine Aminotransferase (ALT/SGPT) 120 H, Alkaline Phosphatase 104, Total Bilirubin 0.2, Triglycerides Level 290 H, LDL Cholesterol 120 H, Total Protein 6.9, Albumin 2.2 L Current Medications Current Medications Acetaminophen (Tylenol Tab) 650 mg Q6HP PRN PO HEADACHE or DISCOMFORT Last administered on 10/28/18at 02:50; Start 10/23/18 at 14:30 Al Hydrox/Mg Hydrox/Simethicone (Mylanta) 30 ml Q4HP PRN PO HEARTBURN/INDIGESTION; Start 10/23/18 at 14:30 Divalproex Sodium (Depakote) 500 mg QAM PO ; Start 10/26/18 at 09:00; Status Cancel Divalproex Sodium (Depakote) 500 mg QHS PO Last administered on 10/24/18at 21:35; Start 10/24/18 at 21:00; Stop 10/25/18 at 13:51; Status DC Divalproex Sodium (Depakote) 750 mg BID PO Last administered on 10/28/18at 08:17; Start 10/25/18 at 21:00 Divalproex Sodium (Depakote) 1,000 mg QHS PO ; Start 10/25/18 at 21:00; Status Cancel Folic Acid (Folic Acid) 1 mg DAILY PO Last administered on 10/28/18at 08:16; Start 10/24/18 at 09:00 Gabapentin (Neurontin) 400 mg TID PO Last administered on 10/26/18at 08:07; Start 10/24/18 at 09:00; Stop 10/26/18 at 14:42; Status DC Gabapentin (Neurontin) 600 mg TID PO Last administered on 10/28/18at 08:16; Start 10/26/18 at 16:00 Glucose (Glucose) 16 GM ASDIRECTED PRN PO SEE LABEL COMMENTS; Start 10/23/18 at 14:30 Hydrochlorothiazide (Hydrodiuril) 25 mg DAILY PO Last administered on 10/28/18 08:17; Start 10/24/18 at 09:00 Insulin Detemir (Levemir Insulin) 60 units QHS SC Last administered on 10/23/18at 21:27; Start 10/23/18 at 21:00; Stop 10/24/18 at 19:59; Status DC Insulin Detemir (Levemir Insulin) 64 units QHS SC Last administered on 10/24/18at 21:35; Start 10/24/18 at 21:00; Stop 10/25/18 at 08:34; Status DC Insulin Detemir (Levemir Insulin) 66 units QHS SC Last administered on 21:11; Start 10/25/18 at 21:00 Insulin Human Lispro (HumaLOG INSULIN) See Protocol Table AC SC Last administered on 10/28/18 11:39; Start 10/23/18 at 17:30 Insulin Human Lispro (HumaLOG INSULIN) See Protocol Table QHS SC Last administered on 10/27/18 21:11; Start 10/23/18 at 21:00 Lisinopril (Prinivil) 40 mg DAILY PO Last administered on 10/28/18 08:16; Start 10/24/18 at 09:00 Magnesium Hydroxide (Milk Of Magnesia) 30 ml DAILYPRN PRN PO CONSTIPATION; Start 10/23/18 at 14:30 Mirtazapine (Remeron) 30 mg QHS PO ; Start 10/28/18 at 21:00 Multivitamins (Theragram-M) 1 tab DAILY PO Last administered on 10/28/18 08:16; Start 10/24/18 at 09:00 Nicotine (Nicorette) 2 mg Q2HP PRN PO SMOKING CESSATION Last administered on 10/24/18at 09:04; Start 10/23/18 at 14:30; Stop 10/24/18 at 10:45; Status DC Nicotine (Nicorette) 4 mg Q2HP PRN PO NICOTINE WITHDRAWAL Last administered on 10/28/18 14:35; Start 10/24/18 at 10:30 Nifedipine (Procardia Xl) 60 mg DAILY PO Last administered on 10/28/18 08:17; Start 10/24/18 at 09:00 Olanzapine (ZyPREXA ZYDIS) 5 mg Q4HP PRN PO ANXIETY/AGITATION Last administered on 10/27/18 01:11; Start 10/23/18 at 14:30 Prazosin HCl (Minipress) 2 mg QHS PO Last administered on 10/24/18at 21:38; Start 10/24/18 at 21:00; Stop 10/25/18 at 14:02; Status DC Prazosin HCl (Minipress) 4 mg QHS PO Last administered on 10/27/18 21:00; Start 10/25/18 at 21:00 Quetiapine Fumarate (SEROquel) 75 mg QAM PO Last administered on 10/28/18 08:18; Start 10/24/18 at 09:00 Quetiapine Fumarate (SEROquel) 400 mg QHS PO Last administered on 10/24/18at 21:36; Start 10/23/18 at 21:00; Stop 10/25/18 at 13:51; Status DC Quetiapine Fumarate (SEROquel) 500 mg QHS PO Last administered on 10/27/18at 20:58; Start 10/25/18 at 21:00 Sertraline HCl (Zoloft) 75 mg DAILY PO Last administered on 10/27/18 08:24; Start 10/26/18 at 09:00; Stop 10/27/18 at 19:01; Status DC Sertraline HCl (Zoloft) 100 mg DAILY PO Last administered on 10/28/18 08:17; Start 10/28/18 at 09:00 Trazodone HCl (Desyrel) 50 mg QHS PO Last administered on 10/27/18 21:00; Start 10/23/18 at 21:00; Stop 10/28/18 at 13:35; Status DC Allergies Coded Allergies: No Known Allergies (Unverified , 10/19/18) OSVALDO WHYTE MD October 28, 2018 15:25
[2018-10-28 18:16] VITALS: BP 137/71
[2018-10-28] MEDS ORDERED: MIRTAZAPINE 15 MG TAB PO SCH (21:00)
[2018-10-28] MEDS: PRAZOSIN 1 MG CAP PO SCH (21:41)
[2018-10-28] MEDS: QUEtiapine FUMARATE 100 MG TAB PO SCH (21:42)
[2018-10-28] MEDS: LEVEMIR (INSULIN DETEMIR) 1 UNITS/0.01ML SC SCH (22:14)
[2018-10-29] MEDS: NICOTINE POLACRILEX 2 MG GUM PO PRN ×8 (03:37→23:46)
[2018-10-29] MEDS: HumaLOG INSULIN (NovoLOG) PER UNIT SC SCH ×4 (06:24→22:04)
[2018-10-29 06:53] VITALS: BP 150/83
--- NOTE | 2018-10-29 07:30 | MHIPNPDOC ---
[facility] Progress Note Progress Note DATE OF SERVICE: 10/29/18 HISTORY: Mr. Virk continues to complain of voices and insomnia. The voices described as screaming. I have started him on inVega and increased his Remeron t o 45 mg as Seroquel seems ineffective in controlling his psychotic thoughts. VITAL SIGNS: See below. NEW TEST RESULTS: None. CURRENT MEDICATIONS: See below. MENTAL STATUS EXAMINATION: Patient is a 48-year old male, who is suffering from depression, anxiety and hallucinations. Speech: Is. Normal. Language skills are adequate. Thought processes including: Auditory hallucinations. Thought content: As above. Abstract reasoning, and computation: Able to abstract. Description of associations:. No loose association. Description of abnormal or psychotic thoughts: Auditory hallucinations. Judgment:. Fair. Insight: Fair. Orientation: Intact 3. Recent and remote memory:. Intact. Attention span and concentration: Intact. Language: As above. Fund of knowledge:. Intact. Mood: Anxious. Affect:, Congruent. DIAGNOSES: 1. Schizophrenia. 2., Insomnia. ASSESSMENT: 48-year-old male with schizophrenia, still having symptoms MANAGEMENT PLAN: As above. Will add INVega and decrease Seroquel. TIME SPENT: 30 minutes. Vital Signs Vital Signs Date Time Temp Pulse Resp B/P (MAP) Pulse Ox O2 Delivery O2 Flow Rate FiO2 10/29/18 06:53 98.4 83 16 150/83 (105) Laboratory Data 24H Labs Laboratory Tests 2 10/28/18 11:36: Bedside Glucose (Misc Panel) 219H 10/28/18 17:23: Bedside Glucose (Misc Panel) 227H 10/28/18 20:10: Bedside Glucose (Misc Panel) 262H 10/29/18 06:08: Bedside Glucose (Misc Panel) 373H Current Medications Current Medications Acetaminophen (Tylenol Tab) 650 mg Q6HP PRN PO HEADACHE or DISCOMFORT Last administered on 10/28/18at 02:50; Start 10/23/18 at 14:30 Al Hydrox/Mg Hydrox/Simethicone (Mylanta) 30 ml Q4HP PRN PO HEARTBURN/INDIGESTION; Start 10/23/18 at 14:30 Divalproex Sodium (Depakote) 500 mg QAM PO ; Start 10/26/18 at 09:00; Status Cancel Divalproex Sodium (Depakote) 500 mg QHS PO Last administered on 10/24/18at 21:3 5; Start 10/24/18 at 21:00; Stop 10/25/18 at 13:51; Status DC Divalproex Sodium (Depakote) 750 mg BID PO Last administered on 10/28/18at 21:41; Start 10/25/18 at 21:00 Divalproex Sodium (Depakote) 1,000 mg QHS PO ; Start 10/25/18 at 21:00; Status Cancel Folic Acid (Folic Acid) 1 mg DAILY PO Last administered on 10/28/18 08:16; Start 10/24/18 at 09:00 Gabapentin (Neurontin) 400 mg TID PO Last administered on 10/26/18 08:07; Start 10/24/18 at 09:00; Stop 10/26/18 at 14:42; Status DC Gabapentin (Neurontin) 600 mg TID PO Last administered on 10/28/18 21:42; Start 10/26/18 at 16:00 Glucose (Glucose) 16 GM ASDIRECTED PRN PO SEE LABEL COMMENTS; Start 10/23/18 at 14:30 Hydrochlorothiazide (Hydrodiuril) 25 mg DAILY PO Last administered on 10/28/18 08:17; Start 10/24/18 at 09:00 Insulin Detemir (Levemir Insulin) 60 units QHS SC Last administered on 10/23/18at 21:27; Start 10/23/18 at 21:00; Stop 10/24/18 at 19:59; Status DC Insulin Detemir (Levemir Insulin) 64 units QHS SC Last administered on 10/24/18at 21:35; Start 10/24/18 at 21:00; Stop 10/25/18 at 08:34; Status DC Insulin Detemir (Levemir Insulin) 66 units QHS SC Last administered on 10/28/18 22:14; Start 10/25/18 at 21:00 Insulin Human Lispro (HumaLOG INSULIN) See Protocol Table AC SC Last adminis tered on 10/29/18at 06:24; Start 10/23/18 at 17:30 Insulin Human Lispro (HumaLOG INSULIN) See Protocol Table QHS SC Last adminis tered on 10/28/18at 22:15; Start 10/23/18 at 21:00 Lisinopril (Prinivil) 40 mg DAILY PO Last administered on 10/28/18 08:16; S tart 10/24/18 at 09:00 Magnesium Hydroxide (Milk Of Magnesia) 30 ml DAILYPRN PRN PO CONSTIPATION; Start 10/23/18 at 14:30 Mirtazapine (Remeron) 30 mg QHS PO Last administered on 10/28/18at 21:42; Start 10/28/18 at 21:00; Stop 10/29/18 at 07:19; Status DC Mirtazapine (Remeron) 45 mg QHS PO ; Start 10/29/18 at 21:00 Multivitamins (Theragram-M) 1 tab DAILY PO Last administered on 10/28/18 08:16; Start 10/24/18 at 09:00 Nicotine (Nicorette) 2 mg Q2HP PRN PO SMOKING CESSATION Last administered on 10/24/18at 09:04; Start 10/23/18 at 14:30; Stop 10/24/18 at 10:45; Status DC Nicotine (Nicorette) 4 mg Q2HP PRN PO NICOTINE WITHDRAWAL Last administered on 10/29/18 06:28; Start 10/24/18 at 10:30 Nifedipine (Procardia Xl) 60 mg DAILY PO Last administered on 10/28/18at 08:17; Start 10/24/18 at 09:00 Olanzapine (ZyPREXA ZYDIS) 5 mg Q4HP PRN PO ANXIETY/AGITATION Last administered on 10/27/18at 01:11; Start 10/23/18 at 14:30 Paliperidone (Invega) 3 mg QAM PO ; Start 10/29/18 at 09:00 Prazosin HCl (Minipress) 2 mg QHS PO Last administered on 10/24/18 21:38; Start 10/24/18 at 21:00; Stop 10/25/18 at 14:02; Status DC Prazosin HCl (Minipress) 4 mg QHS PO Last administered on 10/28/18 21:41; Start 10/25/18 at 21:00 Quetiapine Fumarate (SEROquel) 75 mg QAM PO Last administered on 10/28/18 08:18; Start 10/24/18 at 09:00; Stop 10/29/18 at 07:19; Status DC Quetiapine Fumarate (SEROquel) 400 mg QHS PO Last administered on 10/24/18at 21:36; Start 10/23/18 at 21:00; Stop 10/25/18 at 13:51; Status DC Quetiapine Fumarate (SEROquel) 500 mg QHS PO Last administered on 10/28/18at 21:42; Start 10/25/18 at 21:00 Sertraline HCl (Zoloft) 75 mg DAILY PO Last administered on 10/27/18at 08:24; Start 10/26/18 at 09:00; Stop 10/27/18 at 19:01; Status DC Sertraline HCl (Zoloft) 100 mg DAILY PO Last administered on 10/28/18at 08:17; Start 10/28/18 at 09:00 Trazodone HCl (Desyrel) 50 mg QHS PO Last administered on 10/27/18at 21:00; Start 10/23/18 at 21:00; Stop 10/28/18 at 13:35; Status DC Allergies Coded Allergies: No Known Allergies (Unverified , 10/19/18) OSVALDO WHYTE MD October 29, 2018 07:30
[2018-10-29] MEDS: LISINOPRIL 40 MG TAB PO SCH (08:34)
[2018-10-29] MEDS: PALIPERIDONE 3 MG ER TAB (INVEGA) PO SCH (08:34)
[2018-10-29] MEDS: SERTRALINE 100 MG TAB PO SCH (08:34)
[2018-10-29] MEDS: MULTIVITAMINS/MINERALS THERAP 1 TAB PO SCH (08:34)
[2018-10-29] MEDS: NIFEdipine 30 MG XL TAB PO SCH (08:34)
[2018-10-29] MEDS: DIVALPROEX 250 MG TAB PO SCH ×2 (08:35→22:06)
[2018-10-29] MEDS: hydroCHLOROthiazide 25 MG TAB PO SCH (08:35)
[2018-10-29] MEDS: GABAPENTIN 300 MG CAP PO SCH ×3 (08:35→22:05)
[2018-10-29] MEDS: FOLIC ACID 1 MG TAB PO SCH (08:35)
[2018-10-29 19:27] VITALS: BP 143/83
[2018-10-29] MEDS: LEVEMIR (INSULIN DETEMIR) 1 UNITS/0.01ML SC SCH (22:04)
[2018-10-29] MEDS: QUEtiapine FUMARATE 100 MG TAB PO SCH (22:04)
[2018-10-29] MEDS: MIRTAZAPINE 15 MG TAB PO SCH (22:05)
[2018-10-29] MEDS: PRAZOSIN 1 MG CAP PO SCH (22:06)
[2018-10-30] MEDS: NICOTINE POLACRILEX 2 MG GUM PO PRN ×8 (02:48→23:09)
[2018-10-30] MEDS ORDERED: cloNIDine 0.1 MG TAB PO ONE (07:15)
[2018-10-30 07:19] VITALS: BP 178/88
[2018-10-30] MEDS ORDERED: HumaLOG INSULIN (NovoLOG) PER UNIT SC ONE (08:15)
[2018-10-30] MEDS: SERTRALINE 100 MG TAB PO SCH (08:27)
[2018-10-30] MEDS: LISINOPRIL 40 MG TAB PO SCH (08:27)
[2018-10-30] MEDS: MULTIVITAMINS/MINERALS THERAP 1 TAB PO SCH (08:27)
[2018-10-30] MEDS: PALIPERIDONE 3 MG ER TAB (INVEGA) PO SCH ×2 (08:27→21:04)
[2018-10-30] MEDS: hydroCHLOROthiazide 25 MG TAB PO SCH (08:27)
[2018-10-30] MEDS: NIFEdipine 30 MG XL TAB PO SCH (08:27)
[2018-10-30] MEDS: FOLIC ACID 1 MG TAB PO SCH (08:27)
[2018-10-30] MEDS: GABAPENTIN 300 MG CAP PO SCH ×3 (08:28→21:04)
[2018-10-30] MEDS: DIVALPROEX 250 MG TAB PO SCH ×2 (08:28→21:06)
[2018-10-30] MEDS: HumaLOG INSULIN (NovoLOG) PER UNIT SC SCH ×6 (08:37→21:07)
[2018-10-30 10:38] LABS: HEMATOCRIT 31.9 % (42.0-52.0); HEMOGLOBIN 10.4 g/dl (13.5-17.5); MEAN CORPUSCULAR HEMOGLOBIN 26.4 pg (27.0-33.0); MEAN CORPUSCULAR HGB CONC 32.6 g/dl (32.0-36.5); PLATELET COUNT, AUTOMATED 232 10^3/uL (150-450); RED BLOOD COUNT 3.94 10^6/uL (4.30-6.10); WHITE BLOOD COUNT 6.6 10^3/uL (4.0-10.0)
[2018-10-30] MEDS: CARVedilol 6.25 MG TAB PO SCH ×2 (10:54→21:05)
--- NOTE | 2018-10-30 10:56 | MHIPNPDOC ---
[facility] [place] Progress Note Progress Note DATE OF SERVICE: 10/30/18 HISTORY: 39-year-old male with depression and schizophrenic symptoms. VITAL SIGNS: See below. NEW TEST RESULTS: None. CURRENT MEDICATIONS: See below. MENTAL STATUS EXAMINATION: Patient is a 40-year old male, who is, having sleep difficulties, significant blood sugar spikes and continues to hear voices and screaming Speech: Is normal. Language skills are abnormalities. Thought processes including:. Auditory hallucinations. Thought content: As above. Abstract reasoning, and computation: Able to abstract. Description of associations:. No loose associations. Description of abnormal or psychotic thoughts:. Patient having auditory hallucinations. Judgment:, Poor. Insight: Good. Orientation: Intact 3. Recent and remote memory:. No disturbance. Attention span and concentration:. Good. Language: No disturbance. Fund of knowledge: Complete. Mood: Anxious. Affect:, Congruent. DIAGNOSES: 1. Schizophrenia. 2.. Poorly controlled diabetes. 3., Depression. ASSESSMENT:, Seroquel does not seem to be effective in treating his auditory hallucinations. Have added. Paliperidone, hospitalist consult needed for diabetic management MANAGEMENT PLAN: As above. TIME SPENT:. 30 minutes. Vital Signs Vital Signs Date Time Temp Pulse Resp B/P (MAP) Pulse Ox O2 Delivery O2 Flow Rate FiO2 10/30/18 08:27 178/88 10/30/18 07:19 98.1 82 14 Laboratory Data 24H Labs Laboratory Tests 2 10/29/18 11:43: Bedside Glucose (Misc Panel) 310H 10/29/18 16:47: Bedside Glucose (Misc Panel) 292H 10/29/18 21:40: Bedside Glucose (Misc Panel) 272H 10/30/18 07:01: Bedside Glucose Confirm (Misc) 618*H 10/30/18 10:05: Nucleated Red Blood Cells % (auto) 0.0 CBC/BMP Laboratory Tests 10/30/18 10:05 Red Blood Count 3.94 L, Mean Corpuscular Volume 81.0, Mean Corpuscular Hemoglobin 26.4 L, Mean Corpuscular Hemoglobin Concent 32.6, Red Cell Distribution Width 14.6 H Current Medications Current Medications Acetaminophen (Tylenol Tab) 650 mg Q6HP PRN PO HEADACHE or DISCOMFORT Last ad ministered on 10/28/18at 02:50; Start 10/23/18 at 14:30 Al Hydrox/Mg Hydrox/Simethicone (Mylanta) 30 ml Q4HP PRN PO HEARTBURN/INDIGESTION; Start 10/23/18 at 14:30 Carvedilol (COReg) 6.25 mg BID PO ; Start 10/30/18 at 09:00 Divalproex Sodium (Depakote) 500 mg QAM PO ; Start 10/26/18 at 09:00; Status Cancel Divalproex Sodium (Depakote) 500 mg QHS PO Last administered on 10/24/18at 21:35; Start 10/24/18 at 21:00; Stop 10/25/18 at 13:51; Status DC Divalproex Sodium (Depakote) 750 mg BID PO Last administered on 10/30/18at 08:28; Start 10/25/18 at 21:00 Divalproex Sodium (Depakote) 1,000 mg QHS PO ; Start 10/25/18 at 21:00; Status Cancel Folic Acid (Folic Acid) 1 mg DAILY PO Last administered on 10/30/18at 08:27; Start 10/24/18 at 09:00 Gabapentin (Neurontin) 400 mg TID PO Last administered on 10/26/18at 08:07; Start 10/24/18 at 09:00; Stop 10/26/18 at 14:42; Status DC Gabapentin (Neurontin) 600 mg TID PO Last administered on 10/30/18at 08:28; Start 10/26/18 at 16:00 Glucose (Glucose) 16 GM ASDIRECTED PRN PO SEE LABEL COMMENTS; Start 10/23/18 at 14:30 Hydrochlorothiazide (Hydrodiuril) 25 mg DAILY PO Last administered on 10/30/18at 08:27; Start 10/24/18 at 09:00; Stop 10/30/18 at 09:28; Status DC Insulin Detemir (Levemir Insulin) 60 units QHS SC Last administered on 10/23/18at 21:27; Start 10/23/18 at 21:00; Stop 10/24/18 at 19:59; Status DC Insulin Detemir (Levemir Insulin) 64 units QHS SC Last administered on 10/24/18at 21:35; Start 10/24/18 at 21:00; Stop 10/25/18 at 08:34; Status DC Insulin Detemir (Levemir Insulin) 66 units QHS SC Last administered on 10/29/18at 22:04; Start 10/25/18 at 21:00 Insulin Human Lispro (HumaLOG INSULIN) 5 units AC SC ; Start 10/30/18 at 12:00 Insulin Human Lispro (HumaLOG INSULIN) See Protocol Table AC SC Last administered on 10/30/18at 08:37; Start 10/23/18 at 17:30 Insulin Human Lispro (HumaLOG INSULIN) See Protocol Table QHS SC Last administered on 10/29/18at 22:04; Start 10/23/18 at 21:00 Lisinopril (Prinivil) 40 mg DAILY PO Last administered on 10/30/18 08:27; Start 10/24/18 at 09:00 Magnesium Hydroxide (Milk Of Magnesia) 30 ml DAILYPRN PRN PO CONSTIPATION; Start 10/23/18 at 14:30 Mirtazapine (Remeron) 30 mg QHS PO Last administered on 10/28/18at 21:42; Start 10/28/18 at 21:00; Stop 10/29/18 at 07:19; Status DC Mirtazapine (Remeron) 45 mg QHS PO Last administered on 10/29/18at 22:05; Start 10/29/18 at 21:00 Multivitamins (Theragram-M) 1 tab DAILY PO Last administered on 10/30/18 08:27; Start 10/24/18 at 09:00 Nicotine (Nicorette) 2 mg Q2HP PRN PO SMOKING CESSATION Last administered on 10/24/18at 09:04; Start 10/23/18 at 14:30; Stop 10/24/18 at 10:45; Status DC Nicotine (Nicorette) 4 mg Q2HP PRN PO NICOTINE WITHDRAWAL Last administered on 10/30/18 08:29; Start 10/24/18 at 10:30 Nifedipine (Procardia Xl) 60 mg DAILY PO Last administered on 10/30/18 08:27; Start 10/24/18 at 09:00 Olanzapine (ZyPREXA ZYDIS) 5 mg Q4HP PRN PO ANXIETY/AGITATION Last administered on 5/24/19at 01:11; Start 10/23/18 at 14:30 Paliperidone (Invega) 3 mg BID PO ; Start 10/30/18 at 21:00; Status UNV Paliperidone (Invega) 3 mg QAM PO Last administered on 10/30/18at 08:27; Start 10/29/18 at 09:00; Stop 10/30/18 at 10:52; Status DC Prazosin HCl (Minipress) 2 mg QHS PO Last administered on 10/24/18at 21:38; Start 10/24/18 at 21:00; Stop 10/25/18 at 14:02; Status DC Prazosin HCl (Minipress) 4 mg QHS PO Last administered on 10/29/18at 22:06; Start 10/25/18 at 21:00 Quetiapine Fumarate (SEROquel) 75 mg QAM PO Last administered on 10/28/18at 08:18; Start 10/24/18 at 09:00; Stop 10/29/18 at 07:19; Status DC Quetiapine Fumarate (SEROquel) 400 mg QHS PO Last administered on 10/24/18at 21:36; Start 10/23/18 at 21:00; Stop 10/25/18 at 13:51; Status DC Quetiapine Fumarate (SEROquel) 500 mg QHS PO Last administered on 10/29/18at 22:04; Start 10/25/18 at 21:00 Sertraline HCl (Zoloft) 75 mg DAILY PO Last administered on 10/27/18at 08:24; Start 10/26/18 at 09:00; Stop 10/27/18 at 19:01; Status DC Sertraline HCl (Zoloft) 100 mg DAILY PO Last administered on 10/30/18 08:27; Start 10/28/18 at 09:00 Trazodone HCl (Desyrel) 50 mg QHS PO Last administered on 10/27/18at 21:00; Start 10/23/18 at 21:00; Stop 10/28/18 at 13:35; Status DC Allergies Coded Allergies: No Known Allergies (Unverified , 10/19/18) OSVALDO WHYTE MD October 30, 2018 10:56
[2018-10-30 10:57] LABS: HEMOGLOBIN A1c 11.4 %
[2018-10-30 11:00] LABS: ALBUMIN 2.3 GM/DL (3.2-5.2); BILIRUBIN,TOTAL 0.2 MG/DL (0.2-1.0); CALCIUM LEVEL 9.2 MG/DL (8.5-10.1); CREATININE FOR GFR 1.64 MG/DL (0.70-1.30); GLOMERULAR FILTRATION RATE 57.9 (>60); POTASSIUM SERUM 3.9 MEQ/L (3.5-5.1); TOTAL PROTEIN 6.5 GM/DL (6.4-8.2)
--- NOTE | 2018-10-30 11:36 | IPNPDOC ---
Subjective Date Seen The patient was seen on 10/30/18. Subjective Chief Complaint/HPI Patient is a 48-year-old man with a history of schizoaffective disorder and poly substance abuse who was initially admitted to the medical service because of hypertension. He was discharged to inpatient psychiatric unit on account of command auditory hallucinations to kill himself. Medical team on board to manage his blood pressure and blood glucose. Events since last encounter Denies chest pain, shortness of breath, weakness, polydipsia, polyuria. States he declined breakfast this am because of his blood glucose reading of greater than 600 Objective Physical Examination Other physical findings GENERAL: NAD SKIN : Warm, dry intact HEENT: Atraumatic, normocephalic, PERRL, moist mucous membrane CARDIOVASCULAR: Regular rate and rhythm, S1S2, no JVD, no edema, distal pulses + and palpable RESP: CTAB, no accessory muscle use noted ABDOMEN: BS+ non distended non tender MS: no joint deformities NEURO: Alert and oriented x 3, CN2-12 grossly intact PSYCH: no anxiety or agitation, appropriate mood and affect. Assessment /Plan Problems (1) Diabetic hyperosmolar non-ketotic state Status: Acute Problem Text: -25 units lispro was administered this morning -add bolus therapy to his current regimen -5 units insulin with meals -fingerstick monitoring ACHS -sliding scale coverage -HgbA1C is 11 -Continue levemir 66 units at bedtime (2) Hypertensive urgency Status: Acute Problem Text: -uncontrolled blood pressure likely due to elevated blood glucose -add betablocker to current regimen -discontinue HCTZ for renal insufficiancy, dehydration, elevated creatinine -monitor response with labs and adjust as indicated (3) DVT (deep venous thrombosis) Problem Text: -patient is frequently ambulatory and has no need for DVT prophylaxis at this time Plan/VTE VTE Prophylaxis Ordered?: No VTE Exclusion Mechanical Proph: Low Risk for VTE VS, I&O, 24H, Fishbone Vital Signs/I&O Vital Signs Date Time Temp Pulse Resp B/P (MAP) Pulse Ox O2 Delivery O2 Flow Rate FiO2 10/30/18 10:54 82 178/88 10/30/18 07:19 98.1 14 Laboratory Data 24H LABS Laboratory Tests 2 10/29/18 11:43: Bedside Glucose (Misc Panel) 310H 10/29/18 16:47: Bedside Glucose (Misc Panel) 292H 10/29/18 21:40: Bedside Glucose (Misc Panel) 272H 10/30/18 07:01: Bedside Glucose Confirm (Misc) 618*H 10/30/18 10:05: Nucleated Red Blood Cells % (auto) 0.0, Bedside Glucose Confirm (Misc) 207H, Anion Gap 8, Glomerular Filtration Rate 57.9L, Estimated Mean Plasma Glucose 280H, Hemoglobin A1c 11.4, Blood Urea Nitrogen 24H, Creatinine 1.64H, Sodium Level 138, Potassium Level 3.9, Chloride Level 103, Carbon Dioxide Level 27, Calcium Level 9.2, Aspartate Amino Transf (AST/SGOT) 32, Alanine Aminotransferase (ALT/SGPT) 89H, Alkaline Phosphatase 89, Total Bilirubin 0.2, Total Protein 6.5, Albumin 2.3L, Albumin/Globulin Ratio 0.55L CBC/BMP Laboratory Tests 10/30/18 10:05 Red Blood Count 3.94 L, Mean Corpuscular Volume 81.0, Mean Corpuscular Hemoglobin 26.4 L, Mean Corpuscular Hemoglobin Concent 32.6, Red Cell Distribution Width 14.6 H, Calcium Level 9.2, Aspartate Amino Transf (AST/SGOT) 32, Alanine Aminotransferase (ALT/SGPT) 89 H, Alkaline Phosphatase 89, Total Bilirubin 0.2, Total Protein 6.5, Albumin 2.3 L GABRIELLE BEE October 30, 2018 11:36
[2018-10-30 19:06] VITALS: BP 146/92
[2018-10-30] MEDS: QUEtiapine FUMARATE 100 MG TAB PO SCH (21:05)
[2018-10-30] MEDS: MIRTAZAPINE 15 MG TAB PO SCH (21:06)
[2018-10-30] MEDS: PRAZOSIN 1 MG CAP PO SCH (21:06)
[2018-10-30] MEDS: LEVEMIR (INSULIN DETEMIR) 1 UNITS/0.01ML SC SCH (21:07)
[2018-10-31] MEDS: NICOTINE POLACRILEX 2 MG GUM PO PRN ×10 (01:03→23:42)
[2018-10-31 06:35] LABS: HEMATOCRIT 33.5 % (42.0-52.0); HEMOGLOBIN 11.4 g/dl (13.5-17.5); MEAN CORPUSCULAR VOLUME 82.3 fl (80.0-96.0); PLATELET COUNT, AUTOMATED 248 10^3/uL (150-450); RED BLOOD COUNT 4.07 10^6/uL (4.30-6.10); WHITE BLOOD COUNT 6.4 10^3/uL (4.0-10.0)
[2018-10-31 06:55] VITALS: BP 150/71
[2018-10-31 07:08] LABS: ALBUMIN 2.1 GM/DL (3.2-5.2); BILIRUBIN,TOTAL 0.2 MG/DL (0.2-1.0); CALCIUM LEVEL 8.4 MG/DL (8.5-10.1); CREATININE FOR GFR 1.68 MG/DL (0.70-1.30); GLOMERULAR FILTRATION RATE 56.3 (>60); MAGNESIUM LEVEL 1.5 MG/DL (1.8-2.4); TOTAL PROTEIN 6.7 GM/DL (6.4-8.2)
[2018-10-31] MEDS: HumaLOG INSULIN (NovoLOG) PER UNIT SC SCH ×7 (07:40→20:29)
[2018-10-31] MEDS: LISINOPRIL 40 MG TAB PO SCH (08:05)
[2018-10-31] MEDS: NIFEdipine 30 MG XL TAB PO SCH (08:05)
[2018-10-31] MEDS: DIVALPROEX 250 MG TAB PO SCH ×2 (08:05→21:30)
[2018-10-31] MEDS: PALIPERIDONE 3 MG ER TAB (INVEGA) PO SCH ×2 (08:05→21:29)
[2018-10-31] MEDS: GABAPENTIN 300 MG CAP PO SCH ×3 (08:06→21:31)
[2018-10-31] MEDS: SERTRALINE 100 MG TAB PO SCH (08:06)
[2018-10-31] MEDS: CARVedilol 6.25 MG TAB PO SCH ×2 (08:06→21:29)
[2018-10-31] MEDS: MULTIVITAMINS/MINERALS THERAP 1 TAB PO SCH (08:06)
[2018-10-31] MEDS: FOLIC ACID 1 MG TAB PO SCH (08:06)
[2018-10-31] MEDS ORDERED: PALIPERIDONE PALMITATE 234MG/1.5ML INJ (INVEGA)(J2426)(FREE PSY INPT ONLY) IM SCH (09:00)
--- NOTE | 2018-10-31 12:22 | IPNPDOC ---
Subjective Date Seen The patient was seen on 10/31/18. Subjective Chief Complaint/HPI Patient is a 48-year-old man with a history of schizoaffective disorder and poly substance abuse who was initially admitted to the medical service because of hypertension. He was discharged to inpatient psychiatric unit on account of command auditory hallucinations to kill himself. Medical team on board to manage his blood pressure and blood glucose. Events since last encounter Denies any symptoms today. Denies blurred vision, weakness, chest pain, shortness of breath, increased thirst, dysuria. Objective Physical Examination Other physical findings GENERAL: NAD SKIN : Warm, dry intact HEENT: Atraumatic, normocephalic, PERRL, moist mucous membrane CARDIOVASCULAR: Regular rate and rhythm, S1S2, no JVD, no edema, distal pulses + and palpable RESP: CTAB, no accessory muscle use noted ABDOMEN: BS+ non distended non tender MS: no joint deformities NEURO: Alert and oriented x 3, CN2-12 grossly intact PSYCH: no anxiety or agitation, appropriate mood and affect. Assessment /Plan Problems (1) Diabetic hyperosmolar non-ketotic state Status: Acute Problem Text: - fasting glucose this morning 328. -continue patient on 5 units of lispro before meals -continue diabetic diet -fingerstick monitoring ACHS -sliding scale coverage -HgbA1C is 11.4 -Continue levemir 66 units at bedtime (2) Hypertensive urgency Status: Acute Problem Text: -Blood pressure is improved today with coreg -Blood pressure monitoring per unit protocol (3) DVT (deep venous thrombosis) Problem Text: -patient is frequently ambulatory and has no need for DVT pro phylaxis at this time Plan/VTE VTE Prophylaxis Ordered?: No VTE Exclusion Mechanical Proph: Low Risk for VTE VS, I&O, 24H, Fishbone Vital Signs/I&O Vital Signs Date Time Temp Pulse Resp B/P (MAP) Pulse Ox O2 Delivery O2 Flow Rate FiO2 10/31/18 08:06 95 141/81 10/31/18 06:55 98.1 18 Laboratory Data 24H LABS Laboratory Tests 2 10/30/18 17:41: Bedside Glucose (Misc Panel) 95 10/30/18 20:53: Bedside Glucose (Misc Panel) 347H 10/31/18 06:24: Nucleated Red Blood Cells % (auto) 0.0, Anion Gap 7L, Glomerular Filtration Rate 56.3L, Blood Urea Nitrogen 27H, Creatinine 1.68H, Sodium Level 138, Potassium Level 4.0, Chloride Level 102, Carbon Dioxide Level 29, Calcium Level 8.4L, Aspartate Amino Transf (AST/SGOT) 38H, Alanine Aminotransferase (ALT/SGPT) 89H, Alkaline Phosphatase 86, Total Bilirubin 0.2, Total Protein 6.7, Albumin 2.1L, Magnesium Level 1.5L, Albumin/Globulin Ratio 0.46L 10/31/18 06:30: Bedside Glucose (Misc Panel) 334H 10/31/18 12:09: Bedside Glucose (Misc Panel) 137H CBC/BMP Laboratory Tests 10/31/18 06:24 Red Blood Count 4.07 L, Mean Corpuscular Volume 82.3, Mean Corpuscular Hem oglobin 28.0, Mean Corpuscular Hemoglobin Concent 34.0, Red Cell Distribution Width 14.5, Calcium Level 8.4 L, Aspartate Amino Transf (AST/SGOT) 38 H, Alanine Aminotransferase (ALT/SGPT) 89 H, Alkaline Phosphatase 86, Total Bilirubin 0.2, Total Protein 6.7, Albumin 2.1 L GABRIELLE BEEP October 31, 2018 12:22
[2018-10-31 18:03] VITALS: BP 132/63
[2018-10-31] MEDS: LEVEMIR (INSULIN DETEMIR) 1 UNITS/0.01ML SC SCH (20:28)
--- NOTE | 2018-10-31 20:48 | MHIPNPDOC ---
[facility] Progress Note Progress Note DATE OF SERVICE: 10/31/18 HISTORY: : Patient is a 48 -year-old , male, who, according to Dr. Hanson: "This is a 48-year-old man with a history of schizoaffective disorder and poly substance abuse who was admitted to the medical service because of hypertension. He is diabetic and his blood glucose was low and currently he is medically stable. The patient had initially presented to the emergency room and was complaining of command auditory hallucinations to kill himself, but because of his medical condition he was admitted to the medical service. When I see the patient today, he states, "I am having really a lot of bad anxiety and my thoughts are racing". He states that he is having suicidal ideations and that he has command auditory hallucinations to tell him to hurt himself. This patient has a history of multiple psychiatric hospitalizations and he was actually admitted recently to [facility] on 09/08/2018. The patient states that after he was discharged from there he was not able to physically get to his medications because he finally found a place to live, but it [place] really [place] of town. He says for the samem reason he was not able to do any followup with any providers. The patient was actually discharged with a diagnosis of schizophrenia paranoid type, post traumatic stress disorder (PTSD) and poly substance dependence. The patient was discharged on Seroquel 150 mg every a.m. and 500 mg every bedtime, Depakote 500 mg at bedtime, prazosin 2 mg at bedtime, and gabapentin 400 mg three times a day". VITAL SIGNS: See below. NEW TEST RESULTS: See below CURRENT MEDICATIONS: See below. MENTAL STATUS EXAMINATION: Patient is a 48-year old male, who is alert, dressed in personal clothes, cooperative, mildly irritable Speech: Is low volume, slow, spontaneous Language skills are good Thought processes including: linear, coherent Thought content: cognitive distortions, angry thoughts Abstract reasoning, and computation: fair. Description of associations: good. Description of abnormal or psychotic thoughts: denies SI, denies HI, denies AV hallucinations, denies thought delusions. Judgment: Poor Insight: limited. Orientation: x 3 Recent and remote memory: limited. Attention span and concentration: fair Language: average. Fund of knowledge: average. Mood: depressed, irritable. Affect: congruent with mood. DIAGNOSES: 1. Unspecified psychotic disorder, r/o Schizoaffective d/o versus Schizophrenia 2. PTSD 3. Polysubstance abuse 4. ROBSON ASSESSMENT:Patient is not doing well today. He is depressed and irritable. He was much better on Tuesday. 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 Over the weekend he started treatment with Paliperidone 3 mgs that later was increased to 3 mgs PO BID. According to patient and Dr. Escudero's notes he was he aring voices but he did not feel like this on Tuesday and he is receiving 500 mgs of Seroquel at night and 75 mgs of the same medication during the day. Will explore more what has really happened to him since Tuesday, since it seems that he is decompensating MANAGEMENT PLAN: Increase SErtraline to 150 mgs po daily TIME SPENT: 20 minutes. Vital Signs Vital Signs Date Time Temp Pulse Resp B/P (MAP) Pulse Ox O2 Delivery O2 Flow Rate FiO2 10/31/18 18:03 98.8 91 16 132/63 (86) Laboratory Data 24H Labs Laboratory Tests 2 10/30/18 20:53: Bedside Glucose (Misc Panel) 347H 10/31/18 06:24: Nucleated Red Blood Cells % (auto) 0.0, Anion Gap 7L, Glomerular Filtration Rate 56.3L, Blood Urea Nitrogen 27H, Creatinine 1.68H, Sodium Level 138, Potassium Level 4.0, Chloride Level 102, Carbon Dioxide Level 29, Calcium Level 8.4L, Aspartate Amino Transf (AST/SGOT) 38H, Alanine Aminotransferase (ALT/SGPT) 89H, Alkaline Phosphatase 86, Total Bilirubin 0.2, Total Protein 6.7, Albumin 2.1L, Magnesium Level 1.5L, Albumin/Globulin Ratio 0.46L 10/31/18 06:30: Bedside Glucose (Misc Panel) 334H 10/31/18 12:09: Bedside Glucose (Misc Panel) 137H 10/31/18 16:46: Bedside Glucose (Misc Panel) 343H 10/31/18 20:24: Bedside Glucose (Misc Panel) 293H CBC/BMP Laboratory Tests 10/31/18 06:24 Red Blood Count 4.07 L, Mean Corpuscular Volume 82.3, Mean Corpuscular Hemoglobin 28.0, Mean Corpuscular Hemoglobin Concent 34.0, Red Cell Distribution Width 14.5, Calcium Level 8.4 L, Aspartate Amino Transf (AST/SGOT) 38 H, Alanine Aminotransferase (ALT/SGPT) 89 H, Alkaline Phosphatase 86, Total Bilirubin 0.2, Total Protein 6.7, Albumin 2.1 L Current Medications Current Medications Acetaminophen (Tylenol Tab) 650 mg Q6HP PRN PO HEADACHE or DISCOMFORT Last administered on 10/28/18at 02:50; Start 10/23/18 at 14:30 Al Hydrox/Mg Hydrox/Simethicone (Mylanta) 30 ml Q4HP PRN PO HEARTBURN/INDIGESTION; Start 10/23/18 at 14:30 Carvedilol (COReg) 6.25 mg BID PO Last administered on 10/31/18at 08:06; Start 10/30/18 at 09:00 Divalproex Sodium (Depakote) 500 mg QAM PO ; Start 10/26/18 at 09:00; Status Cancel Divalproex Sodium (Depakote) 500 mg QHS PO Last administered on 10/24/18at 21:35; Start 10/24/18 at 21:00; Stop 10/25/18 at 13:51; Status DC Divalproex Sodium (Depakote) 750 mg BID PO Last administered on 10/31/18at 08:05; Start 10/25/18 at 21:00 Divalproex Sodium (Depakote) 1,000 mg QHS PO ; Start 10/25/18 at 21:00; Status Cancel Folic Acid (Folic Acid) 1 mg DAILY PO Last administered on 10/31/18at 08:06; Start 10/24/18 at 09:00 Gabapentin (Neurontin) 400 mg TID PO Last administered on 10/26/18at 08:07; Start 10/24/18 at 09:00; Stop 10/26/18 at 14:42; Status DC Gabapentin (Neurontin) 600 mg TID PO Last administered on 10/31/18at 16:03; Start 10/26/18 at 16:00 Glucose (Glucose) 16 GM ASDIRECTED PRN PO SEE LABEL COMMENTS; Start 10/23/18 at 14:30 Hydrochlorothiazide (Hydrodiuril) 25 mg DAILY PO Last administered on 10/30/18 08:27; Start 10/24/18 at 09:00; Stop 10/30/18 at 09:28; Status DC Insulin Detemir (Levemir Insulin) 60 units QHS SC Last administered on 10/23/18at 21:27; Start 10/23/18 at 21:00; Stop 10/24/18 at 19:59; Status DC Insulin Detemir (Levemir Insulin) 64 units QHS SC Last administered on 10/24/18at 21:35; Start 10/24/18 at 21:00; Stop 10/25/18 at 08:34; Status DC Insulin Detemir (Levemir Insulin) 66 units QHS SC Last administered on 10/31/18 20:28; Start 10/25/18 at 21:00 Insulin Human Lispro (HumaLOG INSULIN) 5 units AC SC Last administered on 10/31/18at 16:54; Start 10/30/18 at 12:00 Insulin Human Lispro (HumaLOG INSULIN) See Protocol Table AC SC Last administered on 10/31/18at 16:54; Start 10/23/18 at 17:30 Insulin Human Lispro (HumaLOG INSULIN) See Protocol Table QHS SC Last administe red on 10/31/18 20:29; Start 10/23/18 at 21:00 Lisinopril (Prinivil) 40 mg DAILY PO Last administered on 10/31/18at 08:05; Start 10/24/18 at 09:00 Magnesium Hydroxide (Milk Of Magnesia) 30 ml DAILYPRN PRN PO CONSTIPATION; Start 10/23/18 at 14:30 Mirtazapine (Remeron) 30 mg QHS PO Last administered on 10/28/18 21:42; Start 10/28/18 at 21:00; Stop 10/29/18 at 07:19; Status DC Mirtazapine (Remeron) 45 mg QHS PO Last administered on 10/30/18 21:06; Start 10/29/18 at 21:00 Multivitamins (Theragram-M) 1 tab DAILY PO Last administered on 10/31/18 08:06; Start 10/24/18 at 09:00 Nicotine (Nicorette) 2 mg Q2HP PRN PO SMOKING CESSATION Last administered on 10/24/18 09:04; Start 10/23/18 at 14:30; Stop 10/24/18 at 10:45; Status DC Nicotine (Nicorette) 4 mg Q2HP PRN PO NICOTINE WITHDRAWAL Last administered on 10/31/18 19:28; Start 10/24/18 at 10:30 Nifedipine (Procardia Xl) 60 mg DAILY PO Last administered on 10/31/18 08:05; Start 10/24/18 at 09:00 Olanzapine (ZyPREXA ZYDIS) 5 mg Q4HP PRN PO ANXIETY/AGITATION Last administered on 10/27/18 01:11; Start 10/23/18 at 14:30 Paliperidone (Invega) 3 mg BID PO Last administered on 10/31/18 08:05; Start 10/30/18 at 21:00 Paliperidone (Invega) 3 mg QAM PO Last administered on 10/30/18 08:27; Start 10/29/18 at 09:00; Stop 10/30/18 at 10:52; Status DC Paliperidone Palmitate (Invega Sustenna) 234 mg Q30D IM Last administered on 10/31/18 14:02; Start 10/31/18 at 09:00 Prazosin HCl (Minipress) 2 mg QHS PO Last administered on 10/24/18at 21:38; Start 10/24/18 at 21:00; Stop 10/25/18 at 14:02; Status DC Prazosin HCl (Minipress) 4 mg QHS PO Last administered on 10/30/18at 21:06; Start 10/25/18 at 21:00 Quetiapine Fumarate (SEROquel) 75 mg QAM PO Last administered on 10/28/18 08:18; Start 10/24/18 at 09:00; Stop 10/29/18 at 07:19; Status DC Quetiapine Fumarate (SEROquel) 400 mg QHS PO Last administered on 10/24/18at 21:36; Start 10/23/18 at 21:00; Stop 10/25/18 at 13:51; Status DC Quetiapine Fumarate (SEROquel) 500 mg QHS PO Last administered on 10/30/18at 21:05; Start 10/25/18 at 21:00 Sertraline HCl (Zoloft) 75 mg DAILY PO Last administered on 10/27/18at 08:24; Start 10/26/18 at 09:00; Stop 10/27/18 at 19:01; Status DC Sertraline HCl (Zoloft) 100 mg DAILY PO Last administered on 10/31/18at 08:06; Start 10/28/18 at 09:00; Stop 10/31/18 at 12:28; Status DC Sertraline HCl (Zoloft) 150 mg DAILY PO ; Start 11/01/18 at 09:00 Trazodone HCl (Desyrel) 50 mg QHS PO Last administered on 10/27/18at 21:00; Start 10/23/18 at 21:00; Stop 10/28/18 at 13:35; Status DC Allergies Coded Allergies: No Known Allergies (Unverified , 10/19/18) NATE TOLENTINO MD October 31, 2018 20:46
[2018-10-31] MEDS: MIRTAZAPINE 15 MG TAB PO SCH (21:29)
[2018-10-31] MEDS: QUEtiapine FUMARATE 100 MG TAB PO SCH (21:30)
[2018-10-31] MEDS: PRAZOSIN 1 MG CAP PO SCH (21:30)
[2018-11-01] MEDS: NICOTINE POLACRILEX 2 MG GUM PO PRN ×9 (03:29→22:38)
[2018-11-01 06:31] VITALS: BP 157/77
[2018-11-01] MEDS: HumaLOG INSULIN (NovoLOG) PER UNIT SC SCH ×7 (06:32→21:00)
[2018-11-01 07:12] LABS: HEMATOCRIT 32.8 % (42.0-52.0); HEMOGLOBIN 11.2 g/dl (13.5-17.5); MEAN CORPUSCULAR HEMOGLOBIN 27.6 pg (27.0-33.0); MEAN CORPUSCULAR HGB CONC 34.1 g/dl (32.0-36.5); MEAN CORPUSCULAR VOLUME 80.8 fl (80.0-96.0); PLATELET COUNT, AUTOMATED 268 10^3/uL (150-450); RED BLOOD COUNT 4.06 10^6/uL (4.30-6.10)
[2018-11-01 07:43] LABS: ALBUMIN 2.2 GM/DL (3.2-5.2); BILIRUBIN,TOTAL 0.2 MG/DL (0.2-1.0); CALCIUM LEVEL 8.3 MG/DL (8.5-10.1); CREATININE FOR GFR 1.64 MG/DL (0.70-1.30); GLOMERULAR FILTRATION RATE 57.9 (>60); TOTAL PROTEIN 6.3 GM/DL (6.4-8.2)
[2018-11-01] MEDS: FOLIC ACID 1 MG TAB PO SCH (08:14)
[2018-11-01] MEDS: MULTIVITAMINS/MINERALS THERAP 1 TAB PO SCH (08:15)
[2018-11-01] MEDS: SERTRALINE HCL 50 MG TAB PO SCH (08:15)
[2018-11-01] MEDS: DIVALPROEX 250 MG TAB PO SCH ×2 (08:15→21:44)
[2018-11-01] MEDS: LISINOPRIL 40 MG TAB PO SCH (08:15)
[2018-11-01] MEDS: GABAPENTIN 300 MG CAP PO SCH ×3 (08:15→21:44)
[2018-11-01] MEDS: PALIPERIDONE 3 MG ER TAB (INVEGA) PO SCH ×2 (08:15→21:45)
[2018-11-01] MEDS: NIFEdipine 30 MG XL TAB PO SCH (08:16)
[2018-11-01] MEDS: CARVedilol 6.25 MG TAB PO SCH (08:16)
[2018-11-01] MEDS ORDERED: CARVedilol 6.25 MG TAB PO ONE (14:00)
--- NOTE | 2018-11-01 17:33 | MHIPNPDOC ---
[facility] Progress Note Progress Note DATE OF SERVICE: 11/01/18 HISTORY: : Patient is a 48 -year-old , male, who, according to Dr. Hanson: "This is a 48-year-old man with a history of schizoaffective disorder and poly substance abuse who was admitted to the medical service because of hypertension. He is diabetic and his blood glucose was low and currently he is medically stable. The patient had initially presented to the emergency room and was complaining of command auditory hallucinations to kill himself, but because of his medical condition he was admitted to the medical service. When I see the patient today, he states, "I am having really a lot of bad anxiety and my thoughts are racing". He states that he is having suicidal ideations and that he has command auditory hallucinations to tell him to hurt himself. This patient has a history of multiple psychiatric hospitalizations and he was actually admitted recently to [facility] on 09/08/2018. The patient states that after he was discharged from there he was not able to physically get to his medications because he finally found a place to live, but it was really [place] of town. He says for the samem reason he was not able to do any followup with any providers. The patient was actually discharged with a diagnosis of schizophrenia paranoid type, post traumatic stress disorder (PTSD) and poly substance dependence. The patient was discharged on Seroquel 150 mg every a.m. and 500 mg every bedtime, Depakote 500 mg at bedtime, prazosin 2 mg at bedtime, and gabapentin 400 mg three times a day". VITAL SIGNS: See below. NEW TEST RESULTS: See below CURRENT MEDICATIONS: See below. MENTAL STATUS EXAMINATION: Patient is a 48-year old male, who is alert, dressed in personal clothes, cooperative, pleasant Speech: Is low volume, slow, spontaneous, normal rate Language skills are good Thought processes including: linear, coherent Thought content: goal orientated, he wants to go to AA, to NA and to the [facility] Abstract reasoning, and computation: fair. Description of associations: good. Description of abnormal or psychotic thoughts: denies SI, denies HI, denies AV hallucinations, denies thought delusions. Judgment: Poor Insight: limited. Orientation: x 3 Recent and remote memory: limited. Attention span and concentration: fair Language: average. Fund of knowledge: average. Mood: improving, less depressed Affect: congruent with mood. DIAGNOSES: 1. Unspecified psychotic disorder, r/o Schizoaffective d/o versus Schizophrenia 2. PTSD 3. Polysubstance abuse 4. ROBSON ASSESSMENT: Patient received Invega sustenna yesterday at 2 pm. He says he feels fine, he has not experienced auditory or visual hallucinations, he denies SI, although sometimes he still has some flashbacks and nightmares that affect his mood. His mood and affect are brighter. MANAGEMENT PLAN: Increase SErtraline to 150 mgs po daily TIME SPENT: 20 minutes. Vital Signs Vital Signs Date Time Temp Pulse Resp B/P (MAP) Pulse Ox O2 Delivery O2 Flow Rate FiO2 11/01/18 14:25 99 145/75 11/01/18 06:31 97.9 16 Laboratory Data 24H Labs Laboratory Tests 2 10/31/18 20:24: Bedside Glucose (Misc Panel) 293H 11/01/18 06:27: Bedside Glucose (Misc Panel) 370H 11/01/18 06:54: Nucleated Red Blood Cells % (auto) 0.0, Anion Gap 7L, Glomerular Filtration Rate 57.9L, Blood Urea Nitrogen 25H, Creatinine 1.64H, Sodium Level 138, Potassium Level 4.0, Chloride Level 104, Carbon Dioxide Level 27, Calcium Level 8.3L, Aspartate Amino Transf (AST/SGOT) 38H, Alanine Aminotransferase (ALT/SGPT) 79H, Alkaline Phosphatase 83, Total Bilirubin 0.2, Total Protein 6.3L, Albumin 2.2L, Albumin/Globulin Ratio 0.54L 11/01/18 12:23: Bedside Glucose (Misc Panel) 233H CBC/BMP Laboratory Tests 11/01/18 06:54 Red Blood Count 4.06 L, Mean Corpuscular Volume 80.8, Mean Corpuscular Hemoglob in 27.6, Mean Corpuscular Hemoglobin Concent 34.1, Red Cell Distribution Width 14.3, Calcium Level 8.3 L, Aspartate Amino Transf (AST/SGOT) 38 H, Alanine Aminotransferase (ALT/SGPT) 79 H, Alkaline Phosphatase 83, Total Bilirubin 0.2, Total Protein 6.3 L, Albumin 2.2 L Current Medications Current Medications Acetaminophen (Tylenol Tab) 650 mg Q6HP PRN PO HEADACHE or DISCOMFORT Last administered on 10/28/18at 02:50; Start 10/23/18 at 14:30 Al Hydrox/Mg Hydrox/Simethicone (Mylanta) 30 ml Q4HP PRN PO HEARTBURN/INDIGESTION; Start 10/23/18 at 14:30 Carvedilol (COReg) 6.25 mg BID PO Last administered on 11/01/18at 08:16; Start 10/30/18 at 09:00; Stop 11/01/18 at 12:51; Status DC Carvedilol (COReg) 12.5 mg BID PO ; Start 11/01/18 at 21:00 Divalproex Sodium (Depakote) 500 mg QAM PO ; Start 10/26/18 at 09:00; Status Cancel Divalproex Sodium (Depakote) 500 mg QHS PO Last administered on 10/24/18at 21:35; Start 10/24/18 at 21:00; Stop 10/25/18 at 13:51; Status DC Divalproex Sodium (Depakote) 750 mg BID PO Last administered on 11/01/18at 08:15; Start 10/25/18 at 21:00 Divalproex Sodium (Depakote) 1,000 mg QHS PO ; Start 10/25/18 at 21:00; Status Cancel Folic Acid (Folic Acid) 1 mg DAILY PO Last administered on 11/01/18at 08:14; Start 10/24/18 at 09:00 Gabapentin (Neurontin) 400 mg TID PO Last administered on 10/26/18at 08:07; Start 10/24/18 at 09:00; Stop 10/26/18 at 14:42; Status DC Gabapentin (Neurontin) 600 mg TID PO Last administered on 11/01/18at 15:55; Start 10/26/18 at 16:00 Glucose (Glucose) 16 GM ASDIRECTED PRN PO SEE LABEL COMMENTS; Start 10/23/18 at 14:30 Hydrochlorothiazide (Hydrodiuril) 25 mg DAILY PO Last administered on 10/30/18at 08:27; Start 10/24/18 at 09:00; Stop 10/30/18 at 09:28; Status DC Insulin Detemir (Levemir Insulin) 60 units QHS SC Last administered on 10/23/18at 21:27; Start 10/23/18 at 21:00; Stop 10/24/18 at 19:59; Status DC Insulin Detemir (Levemir Insulin) 64 units QHS SC Last administered on 10/24/18at 21:35; Start 10/24/18 at 21:00; Stop 10/25/18 at 08:34; Status DC Insulin Detemir (Levemir Insulin) 66 units QHS SC Last administered on 10/31/18at 20:28; Start 10/25/18 at 21:00 Insulin Human Lispro (HumaLOG INSULIN) 5 units AC SC Last administered on 11/01/18at 12:26; Start 10/30/18 at 12:00; Stop 11/01/18 at 12:51; Status DC Insulin Human Lispro (HumaLOG INSULIN) 7 units AC SC ; Start 11/01/18 at 17:30 Insulin Human Lispro (HumaLOG INSULIN) See Protocol Table AC SC Last administe red on 11/01/18at 12:25; Start 10/23/18 at 17:30 Insulin Human Lispro (HumaLOG INSULIN) See Protocol Table QHS SC Last administered on 10/31/18 20:29; Start 10/23/18 at 21:00 Lisinopril (Prinivil) 40 mg DAILY PO Last administered on 11/01/18at 08:15; Start 10/24/18 at 09:00 Magnesium Hydroxide (Milk Of Magnesia) 30 ml DAILYPRN PRN PO CONSTIPATION; Start 10/23/18 at 14:30 Mirtazapine (Remeron) 30 mg QHS PO Last administered on 10/28/18at 21:42; Start 10/28/18 at 21:00; Stop 10/29/18 at 07:19; Status DC Mirtazapine (Remeron) 45 mg QHS PO Last administered on 10/31/18 21:29; Start 10/29/18 at 21:00 Multivitamins (Theragram-M) 1 tab DAILY PO Last administered on 11/01/18 08:15; Start 10/24/18 at 09:00 Nicotine (Nicorette) 2 mg Q2HP PRN PO SMOKING CESSATION Last administered on 10/24/18at 09:04; Start 10/23/18 at 14:30; Stop 10/24/18 at 10:45; Status DC Nicotine (Nicorette) 4 mg Q2HP PRN PO NICOTINE WITHDRAWAL Last administered on 11/01/18 16:49; Start 10/24/18 at 10:30 Nifedipine (Procardia Xl) 60 mg DAILY PO Last administered on 11/01/18 08:16; Start 10/24/18 at 09:00 Olanzapine (ZyPREXA ZYDIS) 5 mg Q4HP PRN PO ANXIETY/AGITATION Last administered on 10/27/18 01:11; Start 10/23/18 at 14:30 Paliperidone (Invega) 3 mg BID PO Last administered on 11/01/18 08:15; Start 10/30/18 at 21:00 Paliperidone (Invega) 3 mg QAM PO Last administered on 10/30/18 08:27; Start 10/29/18 at 09:00; Stop 10/30/18 at 10:52; Status DC Paliperidone Palmitate (Invega Sustenna) 234 mg Q30D IM Last administered on 10/31/18 14:02; Start 10/31/18 at 09:00 Prazosin HCl (Minipress) 2 mg QHS PO Last administered on 10/24/18at 21:38; Start 10/24/18 at 21:00; Stop 10/25/18 at 14:02; Status DC Prazosin HCl (Minipress) 4 mg QHS PO Last administered on 10/31/18 21:30; Start 10/25/18 at 21:00 Quetiapine Fumarate (SEROquel) 75 mg QAM PO Last administered on 10/28/18 08:18; Start 10/24/18 at 09:00; Stop 10/29/18 at 07:19; Status DC Quetiapine Fumarate (SEROquel) 400 mg QHS PO Last administered on 10/24/18at 21:36; Start 10/23/18 at 21:00; Stop 10/25/18 at 13:51; Status DC Quetiapine Fumarate (SEROquel) 500 mg QHS PO Last administered on 10/31/18 21:30; Start 10/25/18 at 21:00 Sertraline HCl (Zoloft) 75 mg DAILY PO Last administered on 10/27/18at 08:24; Start 10/26/18 at 09:00; Stop 10/27/18 at 19:01; Status DC Sertraline HCl (Zoloft) 100 mg DAILY PO Last administered on 10/31/18at 08:06; Start 10/28/18 at 09:00; Stop 10/31/18 at 12:28; Status DC Sertraline HCl (Zoloft) 150 mg DAILY PO Last administered on 11/01/18at 08:15; Start 11/01/18 at 09:00 Trazodone HCl (Desyrel) 50 mg QHS PO Last administered on 10/27/18at 21:00; Start 10/23/18 at 21:00; Stop 10/28/18 at 13:35; Status DC Allergies Coded Allergies: No Known Allergies (Unverified , 10/19/18) NATE TOLENTINO MD November 01, 2018 17:33
[2018-11-01 18:05] VITALS: BP 128/75
[2018-11-01] MEDS: CARVedilol 12.5 MG TAB PO SCH (21:43)
[2018-11-01] MEDS: PRAZOSIN 1 MG CAP PO SCH (21:44)
[2018-11-01] MEDS: QUEtiapine FUMARATE 100 MG TAB PO SCH (21:44)
[2018-11-01] MEDS: MIRTAZAPINE 15 MG TAB PO SCH (21:45)
[2018-11-01] MEDS: LEVEMIR (INSULIN DETEMIR) 1 UNITS/0.01ML SC SCH (21:51)
[2018-11-02] MEDS: NICOTINE POLACRILEX 2 MG GUM PO PRN ×10 (04:16→23:16)
[2018-11-02 06:37] VITALS: BP 159/79
[2018-11-02] MEDS: HumaLOG INSULIN (NovoLOG) PER UNIT SC SCH ×7 (06:56→21:00)
[2018-11-02] MEDS: SERTRALINE HCL 50 MG TAB PO SCH (08:28)
[2018-11-02] MEDS: DIVALPROEX 250 MG TAB PO SCH ×2 (08:28→21:38)
[2018-11-02] MEDS: GABAPENTIN 300 MG CAP PO SCH ×3 (08:29→21:38)
[2018-11-02] MEDS: LISINOPRIL 40 MG TAB PO SCH (08:29)
[2018-11-02] MEDS: NIFEdipine 30 MG XL TAB PO SCH (08:29)
[2018-11-02] MEDS: FOLIC ACID 1 MG TAB PO SCH (08:29)
[2018-11-02] MEDS: PALIPERIDONE 3 MG ER TAB (INVEGA) PO SCH ×2 (08:29→21:40)
[2018-11-02] MEDS: MULTIVITAMINS/MINERALS THERAP 1 TAB PO SCH (08:29)
[2018-11-02] MEDS: CARVedilol 12.5 MG TAB PO SCH ×2 (08:31→21:41)
--- NOTE | 2018-11-02 11:19 | IPNPDOC ---
Subjective Date Seen The patient was seen on 11/02/18. Subjective Chief Complaint/HPI 48-year-old male, Past medical history significant for diabetes mellitus, hypertension, admitted to inpatient psychiatric unit for acute mental health problems. Events since last encounter Has no complaints today, we have discussed improving blood glucose readings, also informed patient of adjustments to his insulin dosage, adjustments also to his blood pressure medication. General: Denies: ROS Unobtainable, Chills, Night Sweats, Fatigue, Malaise, Normal Appetite, Other Symptoms Constitutional: Denies: Chills, Fever, Malaise, Night Sweats, Weakness, Fatigue, Weight Loss, Lethargy, Other Eyes: Denies: Pain, Vision change, Conjunctivae inflammation, Eyelid inflammation, Redness, Other ENT: Denies: Head Aches, Ear Pain, Dysphagia, Sinus Congestion, Post Nasal Drip, Sore Throat, Epistaxis, Other Symptoms Skin: Denies: Rash, Lesions, Jaundice, Bruising, Itching, Dry, Breakdown, Nail Changes, Other Pulmonary: Denies: Dyspnea, Cough, Pleuritic Chest Pain, Other Symptoms Cardiovascular: Denies: Chest Pain, Palpitations, Orthopnea, Paroxysmal Noc. Dyspnea, Edema, Lt Headedness, Other Symptoms Gastrointestinal: Denies: Nausea, Vomiting, Abdominal Pain, Diarrhea, Constipation, Melena, Hematochezia, Other Symptoms Genitourinary: Denies: Dysuria, Frequency, Incontinence, Hematuria, Retention, Other Symptoms Hematologic: Denies: Bruising, Bleeding Excessively, Petecchia, Purpura, Enlarged Lymph Nodes, Other Hematologic Endocrine: Denies: Polydipsia, Polyphagia, Polyuria, Heat Intolerance, Cold Intolerance, Other Endocrine Sx Musculoskeletal: Denies: Neck Pain, Back Pain, Shoulder Pain, Arm Pain, Hand Pain, Leg Pain, Foot Pain, Joint Pain, Muscle Pain, Spasms, Other Symptoms Neurological: Denies: Weakness, Numbness, Incoordination, Change in speech, Confusion, Seizures, Other Symptoms Psych: Denies: Mood Normal, Anxiety, Depression, Memory Issues, Thoughts of Self Harm, Anger, Thoughts of Harming Other, Other Psych Objective Physical Examination General Exam: Positive: Alert, No Acute Distress Eye Exam: Positive: PERRLA, EOMI ENT Exam: Positive: Atraumatic, Mucous membr. moist/pink Neck Exam: Positive: Supple; Negative: JVD, thyromegaly Chest Exam: Positive: Clear to auscultation, Normal air movement Heart Exam: Positive: Regular Rhythm Abdomen Exam: Positive: Normal bowel sounds, Soft; Negative: Tenderness Extremity Exam: Negative: Cyanosis, Edema Skin Exam: Positive: Nl turgor and temperature Neuro Exam: Positive: Normal Speech, Strength at 5/5 X4 ext, Cranial Nerves 3- 12 NL Psych Exam: Positive: Mental status NL; Negative: Anxiety Assessment /Plan Problems (1) Diabetic hyperosmolar non-ketotic state Status: Acute Problem Text: - fasting glucose this morning 239 and improving -increase TID AC insulin to 10 units -continue levemir insulin at 66QPM -continue diabetic diet -fingerstick monitoring ACHS -sliding scale coverage -HgbA1C is 11.4 (2) Hypertensive urgency Status: Acute Problem Text: -continue with coreg 25mg BID -blood pressure monitoring per unit protocol (3) DVT (deep venous thrombosis) Problem Text: -patient is frequently ambulatory and has no need for DVT prophylaxis at this time Plan/VTE VTE Prophylaxis Ordered?: No VTE Exclusion Mechanical Proph: Low Risk for VTE VS, I&O, 24H, Fishbone Vital Signs/I&O Vital Signs Date Time Temp Pulse Resp B/P (MAP) Pulse Ox O2 Delivery O2 Flow Rate FiO2 11/02/18 08:31 82 143/67 11/02/18 06:37 97.8 14 Laboratory Data 24H LABS Laboratory Tests 2 11/01/18 12:23: Bedside Glucose (Misc Panel) 233H 11/01/18 17:26: Bedside Glucose (Misc Panel) 281H 11/01/18 20:27: Bedside Glucose (Misc Panel) 99 11/02/18 05:29: Bedside Glucose (Misc Panel) 239H GABRIELLE BEE November 02, 2018 11:19
[2018-11-02 18:07] VITALS: BP 143/75
--- NOTE | 2018-11-02 21:23 | MHIPNPDOC ---
[facility] Progress Note Progress Note DATE OF SERVICE: 11/02/18 HISTORY: : Patient is a 48 -year-old , male, who, according to Dr. Hanson: "This is a 48-year-old man with a history of schizoaffective disorder and poly substance abuse who was admitted to the medical service because of hypertension. He is diabetic and his blood glucose was low and currently he is medically stable. The patient had initially presented to the emergency room and was complaining of command auditory hallucinations to kill himself, but because of his medical condition he was admitted to the medical service. When I see the patient today, he states, "I am having really a lot of bad anxiety and my thoughts are racing". He states that he is having suicidal ideations and that he has command auditory hallucinations to tell him to hurt himself. This patient has a history of multiple psychiatric hospitalizations and he was actually admitted recently to [facility] on 09/08/2018. The patient states that after he was discharged from there he was not able to physically get to his medications because he finally found a place to live, but it was really out of town. He says for the samem reason he was not able to do any followup with any providers. The patient was actually discharged with a diagnosis of schizophrenia paranoid type, post traumatic stress disorder (PTSD) and poly substance dependence. The patient was discharged on Seroquel 150 mg every a.m. and 500 mg every bedtime, Depakote 500 mg at bedtime, prazosin 2 mg at bedtime, and gabapentin 400 mg three times a day". VITAL SIGNS: See below. NEW TEST RESULTS: See below CURRENT MEDICATIONS: See below. MENTAL STATUS EXAMINATION: Patient is a 48-year old male, who is alert, dressed in personal clothes, cooperative, pleasant Speech: Is low volume, slow, spontaneous, normal rate Language skills are good Thought processes including: linear, coherent Thought content: goal orientated, he wants to go to AA, to NA and to the [facility] Abstract reasoning, and computation: fair. Description of associations: good. Description of abnormal or psychotic thoughts: denies SI, denies HI, denies AV hallucinations, denies thought delusions. Judgment: Poor Insight: limited. Orientation: x 3 Recent and remote memory: limited. Attention span and concentration: fair Language: average. Fund of knowledge: average. Mood: improving, less depressed Affect: congruent with mood. DIAGNOSES: 1. Unspecified psychotic disorder, r/o Schizoaffective d/o versus Schizophrenia 2. PTSD 3. Polysubstance abuse 4. ROBSON ASSESSMENT: The patient's mental status exam has not changed much since yesterday.Patient's mood and affect are brighter today, he has plans for the future, he is goal orientated, but he is still labile, there are times when he seems sad or irritable, he fears about being vulnerable, he says he has had nightmares, not as bad as they were before. MANAGEMENT PLAN: Increase SErtraline to 150 mgs po daily TIME SPENT: 20 minutes. Vital Signs Vital Signs Date Time Temp Pulse Resp B/P (MAP) Pulse Ox O2 Delivery O2 Flow Rate FiO2 11/02/18 18:07 98.7 91 16 143/75 (97) Laboratory Data 24H Labs Laboratory Tests 2 11/02/18 05:29: Bedside Glucose (Misc Panel) 239H 11/02/18 11:56: Bedside Glucose (Misc Panel) 344H 11/02/18 16:30: Bedside Glucose (Misc Panel) 190H 11/02/18 20:32: Bedside Glucose (Misc Panel) 141H Current Medications Current Medications Acetaminophen (Tylenol Tab) 650 mg Q6HP PRN PO HEADACHE or DISCOMFORT Last administered on 10/28/18at 02:50; Start 10/23/18 at 14:30 Al Hydrox/Mg Hydrox/Simethicone (Mylanta) 30 ml Q4HP PRN PO HEARTBURN/INDIGESTION; Start 10/23/18 at 14:30 Carvedilol (COReg) 6.25 mg BID PO Last administered on 11/01/18at 08:16; Start 10/30/18 at 09:00; Stop 11/01/18 at 12:51; Status DC Carvedilol (COReg) 12.5 mg BID PO Last administered on 11/02/18at 08:31; Start 11/01/18 at 21:00 Divalproex Sodium (Depakote) 500 mg QAM PO ; Start 10/26/18 at 09:00; Status Cancel Divalproex Sodium (Depakote) 500 mg QHS PO Last administered on 10/24/18 21 :35; Start 10/24/18 at 21:00; Stop 10/25/18 at 13:51; Status DC Divalproex Sodium (Depakote) 750 mg BID PO Last administered on 11/02/18 08:28; Start 10/25/18 at 21:00 Divalproex Sodium (Depakote) 1,000 mg QHS PO ; Start 10/25/18 at 21:00; Status Cancel Folic Acid (Folic Acid) 1 mg DAILY PO Last administered on 11/02/18 08:29; Start 10/24/18 at 09:00 Gabapentin (Neurontin) 400 mg TID PO Last administered on 10/26/18 08:07; Start 10/24/18 at 09:00; Stop 10/26/18 at 14:42; Status DC Gabapentin (Neurontin) 600 mg TID PO Last administered on 11/02/18 15:01; Start 10/26/18 at 16:00 Glucose (Glucose) 16 GM ASDIRECTED PRN PO SEE LABEL COMMENTS; Start 10/23/18 at 14:30 Hydrochlorothiazide (Hydrodiuril) 25 mg DAILY PO Last administered on 10/30/18 08:27; Start 10/24/18 at 09:00; Stop 10/30/18 at 09:28; Status DC Insulin Detemir (Levemir Insulin) 60 units QHS SC Last administered on 10/23/18 21:27; Start 10/23/18 at 21:00; Stop 10/24/18 at 19:59; Status DC Insulin Detemir (Levemir Insulin) 64 units QHS SC Last administered on 10/24/18at 21:35; Start 10/24/18 at 21:00; Stop 10/25/18 at 08:34; Status DC Insulin Detemir (Levemir Insulin) 66 units QHS SC Last administered on 11/01/18at 21:51; Start 10/25/18 at 21:00 Insulin Human Lispro (HumaLOG INSULIN) 5 units AC SC Last administered on 11/01/18 12:26; Start 10/30/18 at 12:00; Stop 11/01/18 at 12:51; Status DC Insulin Human Lispro (HumaLOG INSULIN) 7 units AC SC Last administered on 11/02/18 07:26; Start 11/01/18 at 17:30; Stop 11/02/18 at 10:07; Status DC Insulin Human Lispro (HumaLOG INSULIN) 10 units AC SC Last administered on 11/02/18 16:58; Start 11/02/18 at 12:00 Insulin Human Lispro (HumaLOG INSULIN) See Protocol Table AC SC Last administered on 11/02/18 16:58; Start 10/23/18 at 17:30 Insulin Human Lispro (HumaLOG INSULIN) See Protocol Table QHS SC Last administered on 10/31/18 20:29; Start 10/23/18 at 21:00 Lisinopril (Prinivil) 40 mg DAILY PO Last administered on 11/02/18 08:29; Start 10/24/18 at 09:00 Magnesium Hydroxide (Milk Of Magnesia) 30 ml DAILYPRN PRN PO CONSTIPATION; Start 10/23/18 at 14:30 Mirtazapine (Remeron) 30 mg QHS PO Last administered on 10/28/18at 21:42; Start 10/28/18 at 21:00; Stop 10/29/18 at 07:19; Status DC Mirtazapine (Remeron) 45 mg QHS PO Last administered on 11/01/18 21:45; Start 10/29/18 at 21:00 Multivitamins (Theragram-M) 1 tab DAILY PO Last administered on 11/02/18 08:29; Start 10/24/18 at 09:00 Nicotine (Nicorette) 2 mg Q2HP PRN PO SMOKING CESSATION Last administered on 10/24/18at 09:04; Start 10/23/18 at 14:30; Stop 10/24/18 at 10:45; Status DC Nicotine (Nicorette) 4 mg Q2HP PRN PO NICOTINE WITHDRAWAL Last administered on 11/02/18 21:04; Start 10/24/18 at 10:30 Nifedipine (Procardia Xl) 60 mg DAILY PO Last administered on 11/02/18 08:29; Start 10/24/18 at 09:00 Olanzapine (ZyPREXA ZYDIS) 5 mg Q4HP PRN PO ANXIETY/AGITATION Last administered on 10/27/18at 01:11; Start 10/23/18 at 14:30 Paliperidone (Invega) 3 mg BID PO Last administered on 11/02/18 08:29; Start 10/30/18 at 21:00 Paliperidone (Invega) 3 mg QAM PO Last administered on 10/30/18 08:27; Start 10/29/18 at 09:00; Stop 10/30/18 at 10:52; Status DC Paliperidone Palmitate (Invega Sustenna) 234 mg Q30D IM Last administered on 10/31/18 14:02; Start 10/31/18 at 09:00 Prazosin HCl (Minipress) 2 mg QHS PO Last administered on 10/24/18 21:38; Start 10/24/18 at 21:00; Stop 10/25/18 at 14:02; Status DC Prazosin HCl (Minipress) 4 mg QHS PO Last administered on 11/01/18 21:44; Start 10/25/18 at 21:00 Quetiapine Fumarate (SEROquel) 75 mg QAM PO Last administered on 10/28/18 08:18; Start 10/24/18 at 09:00; Stop 10/29/18 at 07:19; Status DC Quetiapine Fumarate (SEROquel) 400 mg QHS PO Last administered on 10/24/18at 21:36; Start 10/23/18 at 21:00; Stop 10/25/18 at 13:51; Status DC Quetiapine Fumarate (SEROquel) 500 mg QHS PO Last administered on 11/01/18 21:44; Start 10/25/18 at 21:00 Sertraline HCl (Zoloft) 75 mg DAILY PO Last administered on 10/27/18 08:24; Start 10/26/18 at 09:00; Stop 10/27/18 at 19:01; Status DC Sertraline HCl (Zoloft) 100 mg DAILY PO Last administered on 10/31/18 08:06; Start 10/28/18 at 09:00; Stop 10/31/18 at 12:28; Status DC Sertraline HCl (Zoloft) 150 mg DAILY PO Last administered on 11/02/18 08:28; Start 11/01/18 at 09:00 Trazodone HCl (Desyrel) 50 mg QHS PO Last administered on 10/27/18at 21:00; Start 10/23/18 at 21:00; Stop 10/28/18 at 13:35; Status DC Allergies Coded Allergies: No Known Allergies (Unverified , 10/19/18) NATE TOLENTINO MD November 02, 2018 21:23
[2018-11-02] MEDS: QUEtiapine FUMARATE 100 MG TAB PO SCH (21:38)
[2018-11-02] MEDS: MIRTAZAPINE 15 MG TAB PO SCH (21:40)
[2018-11-02] MEDS: PRAZOSIN 1 MG CAP PO SCH (21:40)
[2018-11-02] MEDS: LEVEMIR (INSULIN DETEMIR) 1 UNITS/0.01ML SC SCH (21:54)
[2018-11-03 06:38] VITALS: BP 187/84
[2018-11-03] MEDS: NICOTINE POLACRILEX 2 MG GUM PO PRN ×8 (06:47→23:39)
[2018-11-03] MEDS: HumaLOG INSULIN (NovoLOG) PER UNIT SC SCH ×7 (06:52→20:52)
[2018-11-03] MEDS: SERTRALINE HCL 50 MG TAB PO SCH (08:29)
[2018-11-03] MEDS: DIVALPROEX 250 MG TAB PO SCH ×2 (08:29→21:39)
[2018-11-03] MEDS: PALIPERIDONE 3 MG ER TAB (INVEGA) PO SCH (08:29)
[2018-11-03] MEDS: MAGNESIUM OXIDE 400 MG TAB (MAG-OX) PO SCH ×3 (08:30→21:39)
[2018-11-03] MEDS: LISINOPRIL 40 MG TAB PO SCH (08:30)
[2018-11-03] MEDS: FOLIC ACID 1 MG TAB PO SCH (08:30)
[2018-11-03] MEDS: CARVedilol 12.5 MG TAB PO SCH ×2 (08:30→21:41)
[2018-11-03] MEDS: NIFEdipine 30 MG XL TAB PO SCH (08:30)
[2018-11-03] MEDS: MULTIVITAMINS/MINERALS THERAP 1 TAB PO SCH (08:31)
[2018-11-03] MEDS: GABAPENTIN 300 MG CAP PO SCH ×3 (08:31→21:38)
[2018-11-03 10:02] LABS: HEMATOCRIT 29.8 % (42.0-52.0); HEMOGLOBIN 9.8 g/dl (13.5-17.5); MEAN CORPUSCULAR HEMOGLOBIN 26.6 pg (27.0-33.0); MEAN CORPUSCULAR HGB CONC 32.9 g/dl (32.0-36.5); PLATELET COUNT, AUTOMATED 209 10^3/uL (150-450); RED BLOOD COUNT 3.68 10^6/uL (4.30-6.10); WHITE BLOOD COUNT 6.2 10^3/uL (4.0-10.0)
[2018-11-03 10:30] LABS: BILIRUBIN,TOTAL 0.1 MG/DL (0.2-1.0); CALCIUM LEVEL 7.7 MG/DL (8.5-10.1); CREATININE FOR GFR 1.65 MG/DL (0.70-1.30); GLOMERULAR FILTRATION RATE 57.5 (>60); MAGNESIUM LEVEL 1.5 MG/DL (1.8-2.4); POTASSIUM SERUM 3.7 MEQ/L (3.5-5.1); TOTAL PROTEIN 6.1 GM/DL (6.4-8.2)
--- NOTE | 2018-11-03 12:32 | IPNPDOC ---
Subjective Date Seen The patient was seen on 11/03/18. Subjective Chief Complaint/HPI 48-year-old male, past medical history significant for diabetes mellitus, hypertension, admitted to inpatient psychiatric unit for acute mental health problems. Events since last encounter Staff report this morning. Patient was extremely combative and afraid he was going to be discharged. This likely is related to his elevated blood pressure. He also refuses labs ordered to monitor his blood glucose on chemistry Objective Physical Examination General Exam: Positive: Alert, No Acute Distress Eye Exam: Positive: PERRLA, EOMI ENT Exam: Positive: Atraumatic, Mucous membr. moist/pink Neck Exam: Positive: Supple; Negative: JVD, thyromegaly Chest Exam: Positive: Clear to auscultation, Normal air movement Heart Exam: Positive: Regular Rhythm Abdomen Exam: Positive: Normal bowel sounds, Soft; Negative: Tenderness Extremity Exam: Negative: Cyanosis, Edema Skin Exam: Positive: Nl turgor and temperature Neuro Exam: Positive: Normal Speech, Strength at 5/5 X4 ext, Cranial Nerves 3- 12 NL Psych Exam: Positive: Mental status NL; Negative: Anxiety Assessment /Plan Problems (1) Diabetic hyperosmolar non-ketotic state Status: Acute Problem Text: - fasting glucose this morning is 261 -continue 10 units insulin TID AC -continue levemir insulin at 66QPM -continue diabetic diet -fingerstick monitoring ACHS -sliding scale coverage -HgbA1C is 11.4 (2) Hypertensive urgency Status: Acute Problem Text: -improving -continue with coreg 25mg BID -blood pressure monitoring per unit protocol (3) Hypomagnesemia Problem Text: -replete and monitor to keep >2 (4) DVT (deep venous thrombosis) Problem Text: -patient is frequently ambulatory and has no need for DVT prophylaxis at this time Plan/VTE VTE Prophylaxis Ordered?: No VTE Exclusion Mechanical Proph: Low Risk for VTE VS, I&O, 24H, Fishbone Vital Signs/I&O Vital Signs Date Time Temp Pulse Resp B/P (MAP) Pulse Ox O2 Delivery O2 Flow Rate FiO2 11/03/18 08:30 143/84 11/03/18 06:38 98.1 74 14 Laboratory Data 24H LABS Laboratory Tests 2 11/02/18 16:30: Bedside Glucose (Misc Panel) 190H 11/02/18 20:32: Bedside Glucose (Misc Panel) 141H 11/03/18 06:42: Bedside Glucose (Misc Panel) 261H 11/03/18 09:46: Nucleated Red Blood Cells % (auto) 0.0, Anion Gap 7L, Glomerular Filtration Rate 57.5L, Blood Urea Nitrogen 23H, Creatinine 1.65H, Sodium Level 144, Potassium Level 3.7, Chloride Level 110H, Carbon Dioxide Level 27, Calcium Level 7.7L, Aspartate Amino Transf (AST/SGOT) 45H, Alanine Aminotransferase (ALT/SGPT) 81H, Alkaline Phosphatase 75, Total Bilirubin 0.1L, Total Protein 6.1L, Albumin 2.0L, Magnesium Level 1.5L, Albumin/Globulin Ratio 0.49L CBC/BMP Laboratory Tests 11/03/18 09:46 Red Blood Count 3.68 L, Mean Corpuscular Volume 81.0, Mean Corpuscular Hemoglobin 26.6 L, Mean Corpuscular Hemoglobin Concent 32.9, Red Cell Distribution Width 14.4, Calcium Level 7.7 L, Aspartate Amino Transf (AST/SGOT) 45 H, Alanine Aminotransferase (ALT/SGPT) 81 H, Alkaline Phosphatase 75, Total Bilirubin 0.1 L, Total Protein 6.1 L, Albumin 2.0 L GABRIELLE BEE November 03, 2018 12:32
--- NOTE | 2018-11-03 15:20 | MHIPNPDOC ---
[facility] Progress Note Progress Note DATE OF SERVICE: 11/03/18 HISTORY: : Patient is a 48 -year-old , male, who, according to Dr. Hanson: "This is a 48-year-old man with a history of schizoaffective disorder and poly substance abuse who was admitted to the medical service because of hypertension. He is diabetic and his blood glucose was low and currently he is medically stable. The patient had initially presented to the emergency room and was complaining of command auditory hallucinations to kill himself, but because of his medical condition he was admitted to the medical service. When I see the patient today, he states, "I am having really a lot of bad anxiety and my thoughts are racing". He states that he is having suicidal ideations and that he has command auditory hallucinations to tell him to hurt himself. This patient has a history of multiple psychiatric hospitalizations and he was actually admitted recently to [facility] on 09/08/2018. The patient states that after he was discharged from there he was not able to physically get to his medications because he finally found a place to live, but [place] of town. He says for the samem reason he was not able to do any followup with any providers. The patient was actually discharged with a diagnosis of schizophrenia paranoid type, post traumatic stress disorder (PTSD) and poly substance dependence. The patient was discharged on Seroquel 150 mg every a.m. and 500 mg every bedtime, Depakote 500 mg at bedtime, prazosin 2 mg at bedtime, and gabapentin 400 mg three times a day". VITAL SIGNS: See below. NEW TEST RESULTS: See below CURRENT MEDICATIONS: See below. MENTAL STATUS EXAMINATION: Patient is a 48-year old male, who is alert, dressed in personal clothes, cooperative, pleasant Speech: Is low volume, slow, spontaneous, normal rate Language skills are good Thought processes including: linear, coherent Thought content: goal orientated, he wants to go to [facility], to [facility] and to [facility] Abstract reasoning, and computation: fair. Description of associations: good. Description of abnormal or psychotic thoughts: denies SI, denies HI, denies AV hallucinations, denies thought delusions. Judgment: improving Insight: improving Orientation: x 3 Recent and remote memory: good Attention span and concentration: intact Language: average. Fund of knowledge: average. Mood: euthymic Affect: congruent with mood. DIAGNOSES: 1. Unspecified psychotic disorder, r/o Schizoaffective d/o versus Schizophrenia 2. PTSD 3. Polysubstance abuse 4. ROBSON ASSESSMENT: The patient reports he slept very well last night, he is less a nxious, he feels his mood is fine, he denies SI/HI or psychosis at this time. he is focused on his discharge on Tuesday. MANAGEMENT PLAN: Continue with the same treatment plan TIME SPENT: 20 minutes. Vital Signs Vital Signs Date Time Temp Pulse Resp B/P (MAP) Pulse Ox O2 Delivery O2 Flow Rate FiO2 11/03/18 08:30 143/84 11/03/18 06:38 98.1 74 14 Laboratory Data 24H Labs Laboratory Tests 2 11/02/18 16:30: Bedside Glucose (Misc Panel) 190H 11/02/18 20:32: Bedside Glucose (Misc Panel) 141H 11/03/18 06:42: Bedside Glucose (Misc Panel) 261H 11/03/18 09:46: Nucleated Red Blood Cells % (auto) 0.0, Anion Gap 7L, Glomerular Filtration Rate 57.5L, Blood Urea Nitrogen 23H, Creatinine 1.65H, Sodium Level 144, Potassium Level 3.7, Chloride Level 110H, Carbon Dioxide Level 27, Calcium Level 7.7L, Aspartate Amino Transf (AST/SGOT) 45H, Alanine Aminotransferase (ALT/SGPT) 81H, Alkaline Phosphatase 75, Total Bilirubin 0.1L, Total Protein 6.1L, Albumin 2.0L, Magnesium Level 1.5L, Albumin/Globulin Ratio 0.49L 11/03/18 12:14: Bedside Glucose (Misc Panel) 77 CBC/BMP Laboratory Tests 11/03/18 09:46 Red Blood Count 3.68 L, Mean Corpuscular Volume 81.0, Mean Corpuscular Hemoglobin 26.6 L, Mean Corpuscular Hemoglobin Concent 32.9, Red Cell Distribution Width 14.4, Calcium Level 7.7 L, Aspartate Amino Transf (AST/SGOT) 45 H, Alanine Aminotransferase (ALT/SGPT) 81 H, Alkaline Phosphatase 75, Total Bilirubin 0.1 L, Total Protein 6.1 L, Albumin 2.0 L Current Medications Current Medications Acetaminophen (Tylenol Tab) 650 mg Q6HP PRN PO HEADACHE or DISCOMFORT Last administered on 10/28/18at 02:50; Start 10/23/18 at 14:30 Al Hydrox/Mg Hydrox/Simethicone (Mylanta) 30 ml Q4HP PRN PO HEARTBURN/INDIGESTION; Start 10/23/18 at 14:30 Carvedilol (COReg) 6.25 mg BID PO Last administered on 11/01/18at 08:16; Start 10/30/18 at 09:00; Stop 11/01/18 at 12:51; Status DC Carvedilol (COReg) 12.5 mg BID PO Last administered on 11/03/18at 08:30; Start 11/01/18 at 21:00 Divalproex Sodium (Depakote) 500 mg QAM PO ; Start 10/26/18 at 09:00; Status Cancel Divalproex Sodium (Depakote) 500 mg QHS PO Last administered on 10/24/18at 21:35; Start 10/24/18 at 21:00; Stop 10/25/18 at 13:51; Status DC Divalproex Sodium (Depakote) 750 mg BID PO Last administered on 11/03/18at 08:29; Start 10/25/18 at 21:00 Divalproex Sodium (Depakote) 1,000 mg QHS PO ; Start 10/25/18 at 21:00; Status Cancel Folic Acid (Folic Acid) 1 mg DAILY PO Last administered on 11/03/18at 08:30; Start 10/24/18 at 09:00 Gabapentin (Neurontin) 400 mg TID PO Last administered on 10/26/18at 08:07; Start 10/24/18 at 09:00; Stop 10/26/18 at 14:42; Status DC Gabapentin (Neurontin) 600 mg TID PO Last administered on 11/03/18at 08:31; Start 10/26/18 at 16:00 Glucose (Glucose) 16 GM ASDIRECTED PRN PO SEE LABEL COMMENTS; Start 10/23/18 at 14:30 Hydrochlorothiazide (Hydrodiuril) 25 mg DAILY PO Last administered on 10/30/18at 08:27; Start 10/24/18 at 09:00; Stop 10/30/18 at 09:28; Status DC Insulin Detemir (Levemir Insulin) 60 units QHS SC Last administered on 10/23/18at 21:27; Start 10/23/18 at 21:00; Stop 10/24/18 at 19:59; Status DC Insulin Detemir (Levemir Insulin) 64 units QHS SC Last administered on 10/24/18at 21:35; Start 10/24/18 at 21:00; Stop 10/25/18 at 08:34; Status DC Insulin Detemir (Levemir Insulin) 66 units QHS SC Last administered on 11/02/18at 21:54; Start 10/25/18 at 21:00 Insulin Human Lispro (HumaLOG INSULIN) 5 units AC SC Last administered on 11/01/18at 12:26; Start 10/30/18 at 12:00; Stop 11/01/18 at 12:51; Status DC Insulin Human Lispro (HumaLOG INSULIN) 7 units AC SC Last administered on 11/02/18at 07:26; Start 11/01/18 at 17:30; Stop 11/02/18 at 10:07; Status DC Insulin Human Lispro (HumaLOG INSULIN) 10 units AC SC Last administered on 11/03/18at 07:28; Start 11/02/18 at 12:00 Insulin Human Lispro (HumaLOG INSULIN) See Protocol Table AC SC Last administered on 11/03/18at 06:52; Start 10/23/18 at 17:30 Insulin Human Lispro (HumaLOG INSULIN) See Protocol Table QHS SC Last administered on 10/31/18at 20:29; Start 10/23/18 at 21:00 Lisinopril (Prinivil) 40 mg DAILY PO Last administered on 11/03/18at 08:30; Start 10/24/18 at 09:00 Magnesium Hydroxide (Milk Of Magnesia) 30 ml DAILYPRN PRN PO CONSTIPATION; Start 10/23/18 at 14:30 Magnesium Oxide (Mag-Ox) 400 mg TID PO Last administered on 11/03/18at 08:30; Start 11/03/18 at 09:00 Mirtazapine (Remeron) 30 mg QHS PO Last administered on 10/28/18at 21:42; Start 10/28/18 at 21:00; Stop 10/29/18 at 07:19; Status DC Mirtazapine (Remeron) 45 mg QHS PO Last administered on 11/02/18 21:40; Start 10/29/18 at 21:00 Multivitamins (Theragram-M) 1 tab DAILY PO Last administered on 11/03/18 08:31; Start 10/24/18 at 09:00 Nicotine (Nicorette) 2 mg Q2HP PRN PO SMOKING CESSATION Last administered on 10/24/18 09:04; Start 10/23/18 at 14:30; Stop 10/24/18 at 10:45; Status DC Nicotine (Nicorette) 4 mg Q2HP PRN PO NICOTINE WITHDRAWAL Last administered on 11/03/18 12:56; Start 10/24/18 at 10:30 Nifedipine (Procardia Xl) 60 mg DAILY PO Last administered on 11/03/18 08:30; Start 10/24/18 at 09:00 Olanzapine (ZyPREXA ZYDIS) 5 mg Q4HP PRN PO ANXIETY/AGITATION Last admini stered on 10/27/18 01:11; Start 10/23/18 at 14:30 Paliperidone (Invega) 3 mg BID PO Last administered on 11/03/18 08:29; Start 10/30/18 at 21:00 Paliperidone (Invega) 3 mg QAM PO Last administered on 10/30/18 08:27; Start 10/29/18 at 09:00; Stop 10/30/18 at 10:52; Status DC Paliperidone Palmitate (Invega Sustenna) 234 mg Q30D IM Last administered on 10/31/18 14:02; Start 10/31/18 at 09:00 Prazosin HCl (Minipress) 2 mg QHS PO Last administered on 10/24/18at 21:38; Start 10/24/18 at 21:00; Stop 10/25/18 at 14:02; Status DC Prazosin HCl (Minipress) 4 mg QHS PO Last administered on 11/02/18 21:40; Start 10/25/18 at 21:00 Quetiapine Fumarate (SEROquel) 75 mg QAM PO Last administered on 10/28/18 08:18; Start 10/24/18 at 09:00; Stop 10/29/18 at 07:19; Status DC Quetiapine Fumarate (SEROquel) 400 mg QHS PO Last administered on 10/24/18at 21:36; Start 10/23/18 at 21:00; Stop 10/25/18 at 13:51; Status DC Quetiapine Fumarate (SEROquel) 500 mg QHS PO Last administered on 11/02/18at 21:38; Start 10/25/18 at 21:00 Sertraline HCl (Zoloft) 75 mg DAILY PO Last administered on 10/27/18at 08:24; Start 10/26/18 at 09:00; Stop 10/27/18 at 19:01; Status DC Sertraline HCl (Zoloft) 100 mg DAILY PO Last administered on 10/31/18at 08:06; Start 10/28/18 at 09:00; Stop 10/31/18 at 12:28; Status DC Sertraline HCl (Zoloft) 150 mg DAILY PO Last administered on 11/03/18at 08:29; Start 11/01/18 at 09:00 Trazodone HCl (Desyrel) 50 mg QHS PO Last administered on 10/27/18at 21:00; Start 10/23/18 at 21:00; Stop 10/28/18 at 13:35; Status DC Allergies Coded Allergies: No Known Allergies (Unverified , 10/19/18) NATE TOLENTINO MD November 03, 2018 15:20
[2018-11-03 17:58] VITALS: BP 136/64
[2018-11-03] MEDS: LEVEMIR (INSULIN DETEMIR) 1 UNITS/0.01ML SC SCH (20:54)
[2018-11-03] MEDS: QUEtiapine FUMARATE 100 MG TAB PO SCH (21:37)
[2018-11-03] MEDS: PRAZOSIN 1 MG CAP PO SCH (21:37)
[2018-11-03] MEDS: MIRTAZAPINE 15 MG TAB PO SCH (21:38)
[2018-11-04] MEDS: NICOTINE POLACRILEX 2 MG GUM PO PRN ×10 (01:52→21:27)
[2018-11-04 06:53] VITALS: BP 160/75
[2018-11-04 07:01] LABS: HEMATOCRIT 31.3 % (42.0-52.0); HEMOGLOBIN 10.3 g/dl (13.5-17.5); MEAN CORPUSCULAR HEMOGLOBIN 27.5 pg (27.0-33.0); MEAN CORPUSCULAR HGB CONC 32.9 g/dl (32.0-36.5); MEAN CORPUSCULAR VOLUME 83.7 fl (80.0-96.0); PLATELET COUNT, AUTOMATED 206 10^3/uL (150-450); RED BLOOD COUNT 3.74 10^6/uL (4.30-6.10); WHITE BLOOD COUNT 6.3 10^3/uL (4.0-10.0)
[2018-11-04 07:29] LABS: ALT/SGPT 102 U/L (12-78); BILIRUBIN,TOTAL 0.3 MG/DL (0.2-1.0); BLOOD UREA NITROGEN 18 MG/DL (7-18); CALCIUM LEVEL 7.8 MG/DL (8.5-10.1); CARBON DIOXIDE LEVEL 28 MEQ/L (21-32); CHLORIDE LEVEL 106 MEQ/L (98-107); CREATININE FOR GFR 1.58 MG/DL (0.70-1.30); GLOMERULAR FILTRATION RATE > 60.0 (>60); GLUCOSE, FASTING 358 MG/DL (70-100); MAGNESIUM LEVEL 1.6 MG/DL (1.8-2.4); POTASSIUM SERUM 3.9 MEQ/L (3.5-5.1); SODIUM LEVEL 141 MEQ/L (136-145); TOTAL PROTEIN 6.2 GM/DL (6.4-8.2)
[2018-11-04] MEDS: HumaLOG INSULIN (NovoLOG) PER UNIT SC SCH ×7 (07:30→21:00)
[2018-11-04] MEDS: MAGNESIUM OXIDE 400 MG TAB (MAG-OX) PO SCH ×3 (08:10→21:25)
[2018-11-04] MEDS: FOLIC ACID 1 MG TAB PO SCH (08:10)
[2018-11-04] MEDS: MULTIVITAMINS/MINERALS THERAP 1 TAB PO SCH (08:10)
[2018-11-04] MEDS: SERTRALINE HCL 50 MG TAB PO SCH (08:11)
[2018-11-04] MEDS: GABAPENTIN 300 MG CAP PO SCH ×3 (08:11→21:25)
[2018-11-04] MEDS: DIVALPROEX 250 MG TAB PO SCH ×2 (08:11→21:23)
[2018-11-04] MEDS: CARVedilol 12.5 MG TAB PO SCH ×2 (08:12→21:24)
[2018-11-04] MEDS: NIFEdipine 30 MG XL TAB PO SCH (08:12)
[2018-11-04] MEDS: LISINOPRIL 40 MG TAB PO SCH (08:12)
--- NOTE | 2018-11-04 09:42 | IPNPDOC ---
Subjective Date Seen The patient was seen on 11/04/18. Subjective Chief Complaint/HPI 48-year-old male, past medical history significant for diabetes mellitus, hypertension, admitted to inpatient psychiatric unit for acute mental health problems. Events since last encounter Patient complains of feeling tired this morning, denies chest pain, denies shortness of breath. Denies polyuria, polydipsia, dizziness Objective Physical Examination General Exam: Positive: Alert, No Acute Distress Eye Exam: Positive: PERRLA, EOMI ENT Exam: Positive: Atraumatic, Mucous membr. moist/pink Neck Exam: Positive: Supple; Negative: JVD, thyromegaly Chest Exam: Positive: Clear to auscultation, Normal air movement Heart Exam: Positive: Regular Rhythm Abdomen Exam: Positive: Normal bowel sounds, Soft; Negative: Tenderness Extremity Exam: Negative: Cyanosis, Edema Skin Exam: Positive: Nl turgor and temperature Neuro Exam: Positive: Normal Speech, Strength at 5/5 X4 ext, Cranial Nerves 3- 12 NL Psych Exam: Positive: Mental status NL; Negative: Anxiety Assessment /Plan Problems (1) Diabetic hyperosmolar non-ketotic state Status: Acute Problem Text: Fasting blood glucose 358 this morning. -Increase bolus insulin to 15 units 3 times a day before meals -Continue to monitor blood glucose prior to meals and at bedtime -Continue Levemir at bedtime, 66 units- -HgbA1c 11.4 (2) Hypertensive urgency Status: Acute Problem Text: -Add procardia -continue with coreg 25mg BID -blood pressure monitoring per unit protocol (3) Hypomagnesemia Problem Text: -Continue to replete -Monitor to keep >2 (4) DVT (deep venous thrombosis) Problem Text: -patient is frequently ambulatory and has no need for DVT prophylaxis at this time Plan/VTE VTE Prophylaxis Ordered?: No VTE Exclusion Mechanical Proph: Low Risk for VTE VS, I&O, 24H, Fishbone Vital Signs/I&O Vital Signs Date Time Temp Pulse Resp B/P (MAP) Pulse Ox O2 Delivery O2 Flow Rate FiO2 11/04/18 08:12 81 147/79 11/04/18 06:53 98.0 14 Laboratory Data 24H LABS Laboratory Tests 2 11/03/18 09:46: Nucleated Red Blood Cells % (auto) 0.0, Anion Gap 7L, Glomerular Filtration Rate 57.5L, Blood Urea Nitrogen 23H, Creatinine 1.65H, Sodium Level 144, Potassium Level 3.7, Chloride Level 110H, Carbon Dioxide Level 27, Calcium Level 7.7L, Aspartate Amino Transf (AST/SGOT) 45H, Alanine Aminotransferase (ALT/SGPT) 81H, Alkaline Phosphatase 75, Total Bilirubin 0.1L, Total Protein 6.1L, Albumin 2.0L, Magnesium Level 1.5L, Albumin/Globulin Ratio 0.49L 11/03/18 12:14: Bedside Glucose (Misc Panel) 77 11/03/18 16:38: Bedside Glucose (Misc Panel) 397H 11/03/18 20:47: Bedside Glucose (Misc Panel) 210H 11/04/18 06:40: Nucleated Red Blood Cells % (auto) 0.0, Anion Gap 7L, Glomerular Filtration Rate > 60.0, Blood Urea Nitrogen 18, Creatinine 1.58H, Sodium Level 141, Potassium Level 3.9, Chloride Level 106, Carbon Dioxide Level 28, Calcium Level 7.8L, Aspartate Amino Transf (AST/SGOT) 59H, Alanine Aminotransferase (ALT/SGPT) 102H, Alkaline Phosphatase 77, Total Bilirubin 0.3#, Total Protein 6.2L, Albumin 2.0L, Magnesium Level 1.6L, Albumin/Globulin Ratio 0.48L CBC/BMP Laboratory Tests 11/03/18 09:46 Red Blood Count 3.68 L, Mean Corpuscular Volume 81.0, Mean Corpuscular Hemoglobin 26.6 L, Mean Corpuscular Hemoglobin Concent 32.9, Red Cell Distribution Width 14.4, Calcium Level 7.7 L, Aspartate Amino Transf (AST/SGOT) 45 H, Alanine Aminotransferase (ALT/SGPT) 81 H, Alkaline Phosphatase 75, Total Bilirubin 0.1 L, Total Protein 6.1 L, Albumin 2.0 L 11/04/18 06:40 Red Blood Count 3.74 L, Mean Corpuscular Volume 83.7, Mean Corpuscular Hemoglobi n 27.5, Mean Corpuscular Hemoglobin Concent 32.9, Red Cell Distribution Width 14.5, Calcium Level 7.8 L, Aspartate Amino Transf (AST/SGOT) 59 H, Alanine Aminotransferase (ALT/SGPT) 102 H, Alkaline Phosphatase 77, Total Bilirubin 0.3 #, Total Protein 6.2 L, Albumin 2.0 L GABRIELLE BEE [facility] Nov 04, 2018 09:42
[2018-11-04] MEDS ORDERED: MAGNESIUM OXIDE 400 MG TAB (MAG-OX) PO ONE (09:45)
[2018-11-04] MEDS: amLODIPine 5 MG TAB PO SCH (10:25)
[2018-11-04 18:21] VITALS: BP 130/62
[2018-11-04] MEDS: LEVEMIR (INSULIN DETEMIR) 1 UNITS/0.01ML SC SCH (20:37)
[2018-11-04] MEDS: MIRTAZAPINE 15 MG TAB PO SCH (21:24)
[2018-11-04] MEDS: QUEtiapine FUMARATE 100 MG TAB PO SCH (21:24)
[2018-11-04] MEDS: PRAZOSIN 1 MG CAP PO SCH (21:24)
[2018-11-05] MEDS: NICOTINE POLACRILEX 2 MG GUM PO PRN ×9 (00:19→22:09)
[2018-11-05 06:43] VITALS: BP 120/63
[2018-11-05 06:52] LABS: HEMOGLOBIN 10.2 g/dl (13.5-17.5); MEAN CORPUSCULAR HEMOGLOBIN 27.6 pg (27.0-33.0); MEAN CORPUSCULAR HGB CONC 32.9 g/dl (32.0-36.5); PLATELET COUNT, AUTOMATED 196 10^3/uL (150-450); RED BLOOD COUNT 3.69 10^6/uL (4.30-6.10)
[2018-11-05 07:22] LABS: BILIRUBIN,TOTAL 0.1 MG/DL (0.2-1.0); CALCIUM LEVEL 8.3 MG/DL (8.5-10.1); CREATININE FOR GFR 1.67 MG/DL (0.70-1.30); GLOMERULAR FILTRATION RATE 56.7 (>60); MAGNESIUM LEVEL 1.7 MG/DL (1.8-2.4); POTASSIUM SERUM 3.9 MEQ/L (3.5-5.1); TOTAL PROTEIN 6.5 GM/DL (6.4-8.2)
[2018-11-05] MEDS: HumaLOG INSULIN (NovoLOG) PER UNIT SC SCH ×7 (07:38→21:00)
[2018-11-05] MEDS: FOLIC ACID 1 MG TAB PO SCH (08:20)
[2018-11-05] MEDS: LISINOPRIL 40 MG TAB PO SCH (08:20)
[2018-11-05] MEDS: amLODIPine 5 MG TAB PO SCH (08:20)
[2018-11-05] MEDS: MAGNESIUM OXIDE 400 MG TAB (MAG-OX) PO SCH ×3 (08:20→21:00)
[2018-11-05] MEDS: GABAPENTIN 300 MG CAP PO SCH ×3 (08:20→22:08)
[2018-11-05] MEDS: NIFEdipine 30 MG XL TAB PO SCH (08:21)
[2018-11-05] MEDS: SERTRALINE HCL 50 MG TAB PO SCH (08:21)
[2018-11-05] MEDS: DIVALPROEX 250 MG TAB PO SCH ×2 (08:21→22:08)
[2018-11-05] MEDS: CARVedilol 12.5 MG TAB PO SCH ×2 (08:21→22:07)
[2018-11-05] MEDS: MULTIVITAMINS/MINERALS THERAP 1 TAB PO SCH (08:21)
--- NOTE | 2018-11-05 09:34 | IPNPDOC ---
Subjective Date Seen The patient was seen on 11/05/18. Subjective Chief Complaint/HPI 48-year-old male, past medical history significant for diabetes mellitus, hypertension, admitted to inpatient psychiatric unit for acute mental health problems. Events since last encounter Has no complaints at this time, denies chest pain, shortness of breath, abdominal pain, nausea, vomiting. Objective Physical Examination General Exam: Positive: Alert, No Acute Distress Eye Exam: Positive: PERRLA, EOMI ENT Exam: Positive: Atraumatic, Mucous membr. moist/pink Neck Exam: Positive: Supple Chest Exam: Positive: Clear to auscultation, Normal air movement Heart Exam: Positive: Regular Rhythm Abdomen Exam: Positive: Normal bowel sounds, Soft Extremity Exam: Negative: Cyanosis, Edema Skin Exam: Positive: Nl turgor and temperature Neuro Exam: Positive: Normal Speech, Strength at 5/5 X4 ext, Cranial Nerves 3- 12 NL Psych Exam: Positive: Mental status NL, Mood NL, Oriented x 3; Negative: Anxiety Assessment /Plan Problems (1) Diabetic hyperosmolar non-ketotic state Status: Acute Problem Text: Fasting blood glucose >300 this morning. -Increase bolus insulin to 20 units 3 times a day before meals -Continue to monitor blood glucose prior to meals and at bedtime -Continue Levemir at bedtime,increase to 70 units -HgbA1c 11.4 (2) Hypertensive urgency Status: Acute Problem Text: -Added procardia yesterday with improvement of blood pressure -continue with coreg 25mg BID -blood pressure monitoring per unit protocol (3) Hypomagnesemia Problem Text: -1.7 today -Continue to replete -Monitor to keep >2 (4) Transaminitis Problem Text: -on multiple antipsychotics with potential for hepatotoxicity -except seroquel were initiated here during this admit -discontinue acetaminophen -hepatic U/S in the AM-fasting -continue to monitor (5) DVT (deep venous thrombosis) Problem Text: -patient is frequently ambulatory and has no need for DVT prophylaxis at this time Plan/VTE VTE Prophylaxis Ordered?: No VTE Exclusion Mechanical Proph: Low Risk for VTE VS, I&O, 24H, Fishbone Vital Signs/I&O Vital Signs Date Time Temp Pulse Resp B/P (MAP) Pulse Ox O2 Delivery O2 Flow Rate FiO2 11/05/18 08:20 84 137/69 11/05/18 06:43 97.9 18 Laboratory Data 24H LABS Laboratory Tests 2 11/04/18 10:28: Bedside Glucose (Misc Panel) 221H 11/04/18 12:47: Bedside Glucose (Misc Panel) 159H 11/04/18 13:30: Bedside Glucose (Misc Panel) 180H 11/04/18 16:41: Bedside Glucose (Misc Panel) 110H 11/04/18 20:32: Bedside Glucose (Misc Panel) 228H 11/05/18 06:32: Nucleated Red Blood Cells % (auto) 0.0, Anion Gap 7L, Glomerular Filtration Rate 56.7L, Blood Urea Nitrogen 18, Creatinine 1.67H, Sodium Level 138, Potassium Level 3.9, Chloride Level 105, Carbon Dioxide Level 26, Calcium Level 8.3L, Aspartate Amino Transf (AST/SGOT) 108H, Alanine Aminotransferase (ALT/SGPT) 166H, Alkaline Phosphatase 73, Total Bilirubin 0.1#L, Total Protein 6.5, Albumin 2.0L, Magnesium Level 1.7L, Albumin/Globulin Ratio 0.44L CBC/BMP Laboratory Tests 11/05/18 06:32 Red Blood Count 3.69 L, Mean Corpuscular Volume 84.0, Mean Corpuscular Hemoglobin 27.6, Mean Corpuscular Hemoglobin Concent 32.9, Red Cell Distribution Width 14.5, Calcium Level 8.3 L, Aspartate Amino Transf (AST/SGOT) 108 H, Alanine Aminotransferase (ALT/SGPT) 166 H, Alkaline Phosphatase 73, Total Bilirubin 0.1 #L, Total Protein 6.5, Albumin 2.0 L GABRIELLE BEE Nov 05, 2018 09:34
[2018-11-05] MEDS ORDERED: MAGNESIUM OXIDE 400 MG TAB (MAG-OX) PO ONE (10:30)
[2018-11-05 18:08] VITALS: BP 126/62
[2018-11-05] MEDS: PRAZOSIN 1 MG CAP PO SCH (22:07)
[2018-11-05] MEDS: MIRTAZAPINE 15 MG TAB PO SCH (22:07)
[2018-11-05] MEDS: QUEtiapine FUMARATE 100 MG TAB PO SCH (22:08)
[2018-11-05] MEDS: LEVEMIR (INSULIN DETEMIR) 1 UNITS/0.01ML SC SCH (22:18)
[2018-11-06] MEDS: NICOTINE POLACRILEX 2 MG GUM PO PRN ×4 (00:17→08:28)
[2018-11-06] MEDS: HumaLOG INSULIN (NovoLOG) PER UNIT SC SCH ×2 (06:32)
[2018-11-06 07:00] VITALS: BP 188/93
[2018-11-06 08:28] VITALS: BP 166/82
[2018-11-06] MEDS: GABAPENTIN 300 MG CAP PO SCH (08:28)
[2018-11-06] MEDS: MAGNESIUM OXIDE 400 MG TAB (MAG-OX) PO SCH (08:28)
[2018-11-06] MEDS: NIFEdipine 30 MG XL TAB PO SCH (08:28)
[2018-11-06] MEDS: LISINOPRIL 40 MG TAB PO SCH (08:29)
[2018-11-06] MEDS: FOLIC ACID 1 MG TAB PO SCH (08:29)
[2018-11-06] MEDS: SERTRALINE HCL 50 MG TAB PO SCH (08:29)
[2018-11-06] MEDS: CARVedilol 12.5 MG TAB PO SCH (08:29)
[2018-11-06] MEDS: DIVALPROEX 250 MG TAB PO SCH (08:29)
[2018-11-06] MEDS: amLODIPine 5 MG TAB PO SCH (08:29)
[2018-11-06] MEDS: MULTIVITAMINS/MINERALS THERAP 1 TAB PO SCH (08:29)
[2018-11-06] MEDS ORDERED: QUET1TAB8 PO (09:20)
[2018-11-06] MEDS ORDERED: INVE234I IM (09:20)
[2018-11-06] MEDS ORDERED: MINI1CAP PO (09:20)
[2018-11-06] MEDS ORDERED: LISI40TA PO (09:20)
[2018-11-06] MEDS ORDERED: CARV12.5 PO (09:20)
[2018-11-06] MEDS ORDERED: REME15TA PO (09:20)
[2018-11-06] MEDS ORDERED: NIFE30TA7 PO (09:20)
[2018-11-06] MEDS ORDERED: GABA-843 PO (09:20)
[2018-11-06] MEDS ORDERED: SERT-155 PO (09:20)
[2018-11-06] MEDS ORDERED: DEPA250T32 PO (09:20)
[2018-11-06] MEDS ORDERED: MIRT1TAB17 PO (13:21)
--- NOTE | 2018-11-06 21:41 | MHDSPDOC ---
[facility] Discharge Summary Discharge Summary DATE OF ADMISSION: October 23, 2018 at 15:20 DATE OF DISCHARGE: Nov 06, 2018 at 10:22 DISCHARGE DIAGNOSES: 1. Schizoaffective d/o, bipolar type, depressed episode 2. PTSD 3. Polysubstance abuse 4. ROBSON REASON FOR ADMISSION: Patient is a 48 -year-old , male, who, according to Dr. Hanson: "This is a 48-year-old man with a history of schizoaffective disorder and poly substance abuse who was admitted to the medical service because of hypertension. He is diabetic and his blood glucose was low and currently he is medically stable. The patient had initially presented to the emergency room and was complaining of command auditory hallucinations to kill himself, but because of his medical condition he was admitted to the medical service. When I see the patient today, he states, "I am having really a lot of bad anxiety and my thoughts are racing". He states that he is having suicidal ideations and that he has command auditory hallucinations to tell him to hurt himself. This patient has a history of multiple psychiatric hospitalizations and he was actually admitted recently to [facility] on 09/08/2018. The patient states that after he was discharged from there he was not able to physically get to his medications because he finally found a place to live, but it was really out of town. He says for the same reason he was not able to do any followup with any providers. The patient was actually discharged with a diagnosis of schizophrenia paranoid type, post traumatic stress disorder (PTSD) and poly substance dependence. The patient was discharged on Seroquel 150 mg every a.m. and 500 mg every bedtime, Depakote 500 mg at bedtime, prazosin 2 mg at bedtime, and gabapentin 400 mg three times a day". CONSULTANTS INVOLVED: None TREATMENT AND PROGRESS ON THE UNIT : Upon initial presentation, the patient was cooperative but irritable, anxious and depressed. He mentioned that he had been exposed to severe trauma when he was helping to clean the area at ground [place] in [facility] after the 02/14 attack. He said that he didn't know he was going to be doing that, picking up body parts and putting them in orange bags. He said that since then, he has had trouble sleeping, he is afraid to fall asleep, he leaves the lights one. He is afraid of falling asleep because he knows that if he does, he will dream about these episode of his life that he would rather forget. He described having flashbacks, nightmares, intrusive thoughts and hypervigilance but he said that he had started hearing voices before 02/14 and they got progressively worse, then, he started having manic and depressive episodes. He mentioned he never used drugs the 02/14 attack, he started using alcohol and then drugs to mitigate the symptoms. He had a good response to treatment which included Zoloft 150 mgs., Prazosin 4 mgs at bedtime for nightmares, Seroquel 500 mgs PO QHS. He took Paliperidone 3 mgs PO BID but since he received the injection, he couldn't keep taking the oral formulation but he had a good response to Seroquel at bedtime which helped him with sleep and mood. He also took Depakote 750 mgs PO BID to control his mood swings and he did report improvement with it. He also took Mirtazapine 45 mgs PO QHS because he has a sleep problem. With Prazosin, his nightmares, flashbacks and intrusive thoughts decreased. He took Gabapentin 600 mgs PO TID to help him with anxiety. His mood improved, his affect improved. He received the 234 mgs Invega Sustenna injection and he had a good response to it, no auditory or visual hallucinations were reported since he was on the oral formulation and no side effects were reported after he had the BURNETTE. HOSPITAL COURSE: As above DISCHARGE ASSESSMENT: The patient was not suicidal, not homicidal and not psychotic. He was established by discharge planners with the [facility] [employer] and to [employer] so that he could attend his appointments because he lives out of town. He said he was going to go to and AA because he knew he needed help with his substance abuse problem but he didn't want to go to Rehab and he thought that living out of town was going to be beneficial for him because he would be away from drugs. MENTAL STATUS EXAMINATION ON DISCHARGE: Patient is a 48-year old male, who is alert, dressed in personal clothes, cooperative, pleasant Speech: Is low volume, slow, spontaneous, normal rate Language skills are good Thought processes including: linear, coherent Thought content: goal orientated, he wants to go to AA, to NA and to the [facility] Abstract reasoning, and computation: fair. Description of associations: good. Description of abnormal or psychotic thoughts: denies SI, denies HI, denies AV hallucinations, denies thought delusions. Judgment: improving Insight: improving Orientation: x 3 Recent and remote memory: good Attention span and concentration: intact Language: average. Fund of knowledge: average. Mood: euthymic Affect: congruent with mood. MEDICATIONS ON DISCHARGE: Scheduled Carvedilol (Carvedilol) 12.5 Mg Tablet, 12.5 MG PO BID for heart disease, #14 Divalproex Sodium (Depakote) 250 Mg Tablet.dr, 750 MG PO BID for mood stabilizer, #14 Gabapentin (Gabapentin) 300 Mg Capsule, 600 MG PO TID for anxiety/pain, #21 Hydrochlorothiazide (Hydrochlorothiazide) 25 Mg Tab, 25 MG PO DAILY, (Reported) Insulin Detemir (Levemir) 100 Unit/1 Ml Vial, 60 UNITS SC QHS for 30 Days, #5 Insulin Human Lispro (Humalog) 100 Unit/1 Ml Vial, 1 DOSE SC QHS, (Reported) 0-250: 0 units, 251-300: 2 Units, 301-350: 4 units, 351-400: 6 units, >400: 8 units Insulin Human Lispro (Humalog) 100 Unit/1 Ml Vial, 1 DOSE SC AC, (Reported) 0-100: 0 units, 101-150: 2 units, 151-200: 4 units, 201-250: 6 units, 251- 300: 8 units, 301-350: 10 units, 351-400: 12 units, >400: 14 units Lisinopril (Lisinopril) 40 Mg Tab, 40 MG PO DAILY, (Reported) Lisinopril (Lisinopril) 40 Mg Tablet, 40 MG PO DAILY for hypertension, #7 Mirtazapine (Mirtazapine) 45 Mg Tab.rapdis, 1 TAB PO QHS for insomnia/depression for 7 Days, #7 Nifedipine (Nifedipine ER) 30 Mg Tab.er.24, 60 MG PO DAILY for hypertension, #14 Paliperidone Palmitate (Invega Sustenna) 234 Mg/1.5 Ml Syringe, 234 MG IM Q30D for psychosis, #1 Potassium Phos/Sodium Phos (Phos-Nak Packet) 1 Each Powd.pack, 1 PKT PO QID, (Reported) Prazosin HCl (Minipress) 1 Mg Capsule, 4 MG PO QHS for nightmares, #28 Quetiapine Fumarate (Quetiapine Fumarate) 100 Mg Tablet, 500 MG PO QHS for insomnia/mood, #35 Sertraline HCl (Sertraline HCl) 50 Mg Tablet, 150 MG PO DAILY for depression, #21 PLAN/FOLLOWUP ARRANGEMENTS: Follow Up Care Education Label * Medical * Medical Follow Up [facility] * Established With This Provider No * Therapist DAXA ATKINSON * Date Nov 14, 2018 * Time 13:00 * Address of Clinic or Practice [address] [place] [address] B * Follow Up Care Education Label * Mental Health Appt 1 * Mental Health [facility] * Established With This Provider No * Therapist LB CHAVARRIA * Date Nov 13, 2018 * Time 09:00 * Address of Clinic or Practice [address] [place] [address] A * Follow Up Care Education Label * Chemical Dependency Appt1 * Chemical Dependency [facility] * Established With This Provider Yes * Additional information Pt will follow up with [facility] as previously established. Follow Up Care Education Label * Chemical Dependency Appt2 * Chemical Dependency [facility] * Address of Clinic or Practice [address] [facility] * Phone Number [phone] * Additional information Walk in Hours M-F 8am-4pm. Follow Up Care Education Label * Chemical Dependency Appt3 * Chemical Dependency [facility] * Established With This Provider No * Address of Clinic or Practice [address] [place] [address] B * Phone Number [phone] * Additional information Walk in hours M-F 7:30-12:30. Follow Up Care Education Label * [employer] [facility] * * Additional information Rides must be scheduled 48 hours in advance. Follow Up Care Education Label * Mental Health Appt 2 * Additional information PT WILL NEED TO CALL HERE TOMORROW [phone], TO FIND OUT WHEN HE NEEDS TO GO TO INFUSION FOR INJECTION. The amount of time spent in the coordination of care for this patient was approximately 30 minutes. Vital Signs/I&Os Vital Signs Date Time Temp Pulse Resp B/P (MAP) Pulse Ox O2 Delivery O2 Flow Rate FiO2 11/06/18 08:28 166/82 11/06/18 07:00 97.6 84 18 Laboratory Data Labs 24H Laboratory Tests 2 11/06/18 06:13: Bedside Glucose (Misc Panel) 356H Medications Scheduled Carvedilol (Carvedilol) 12.5 Mg Tablet, 12.5 MG PO BID for heart disease, #14 Divalproex Sodium (Depakote) 250 Mg Tablet.dr, 750 MG PO BID for mood stabilizer, #14 Gabapentin (Gabapentin) 300 Mg Capsule, 600 MG PO TID for anxiety/pain, #21 Hydrochlorothiazide (Hydrochlorothiazide) 25 Mg Tab, 25 MG PO DAILY, (Reported) Insulin Detemir (Levemir) 100 Unit/1 Ml Vial, 60 UNITS SC QHS for 30 Days, #5 Insulin Human Lispro (Humalog) 100 Unit/1 Ml Vial, 1 DOSE SC QHS, (Reported) 0-250: 0 units, 251-300: 2 Units, 301-350: 4 units, 351-400: 6 units, >400: 8 units Insulin Human Lispro (Humalog) 100 Unit/1 Ml Vial, 1 DOSE SC AC, (Reported) 0-100: 0 units, 101-150: 2 units, 151-200: 4 units, 201-250: 6 units, 251- 300: 8 units, 301-350: 10 units, 351-400: 12 units, >400: 14 units Lisinopril (Lisinopril) 40 Mg Tab, 40 MG PO DAILY, (Reported) Lisinopril (Lisinopril) 40 Mg Tablet, 40 MG PO DAILY for hypertension, #7 Mirtazapine (Mirtazapine) 45 Mg Tab.rapdis, 1 TAB PO QHS for insomnia/depression for 7 Days, #7 Nifedipine (Nifedipine ER) 30 Mg Tab.er.24, 60 MG PO DAILY for hypertension, #14 Paliperidone Palmitate (Invega Sustenna) 234 Mg/1.5 Ml Syringe, 234 MG IM Q30D for psychosis, #1 Potassium Phos/Sodium Phos (Phos-Nak Packet) 1 Each Powd.pack, 1 PKT PO QID, (Reported) Prazosin HCl (Minipress) 1 Mg Capsule, 4 MG PO QHS for nightmares, #28 Quetiapine Fumarate (Quetiapine Fumarate) 100 Mg Tablet, 500 MG PO QHS for insomnia/mood, #35 Sertraline HCl (Sertraline HCl) 50 Mg Tablet, 150 MG PO DAILY for depression, #21 Allergies Coded Allergies: No Known Allergies (Unverified , 10/19/18) NATE TOLENTINO MD Nov 06, 2018 21:38
--- NOTE | 2018-11-07 06:24 | REP ---
Clinical: Elevated liver function tests. Technique: Real time alfaro scale ultrasound examination using curved array transducer. Findings: Liver, pancreas, and spleen are relatively normal in contour, size, and echogenicity. No focal hepatic, pancreatic or splenic lesions are identified. Spleen is upper limits of normal with a splenic index equalling 708). The gallbladder is contracted but without significant wall thickening, gallstones, or pericholecystic fluid. The bilateral kidneys are normal in reniform shape and echogenicity without hydronephrosis. Right kidney measures 12.8 x 7.9 x 6.6 cm. Left kidney measures 12.5 x 6.7 x 5.9 cm. Visualized abdominal aorta normal. No ascites. Impression: Normal complete abdominal ultrasound. Electronically Signed by Deon Colin MD 11/07/2018 06:15 A
== END 2018-11-06 10:22 | disposition home or self-care (01) | DRG 885 ==
LOC: M PSY 15:20
PROVIDERS: ADMIT Psychiatry & Neurology Psychiatry; ATTEND Psychiatry & Neurology Psychiatry
DX: F31.30 Bipolar disorder, current episode depressed, mild or moderate severity, unspecified (principal); R45.851 Suicidal ideations; E11.00 Type 2 diabetes mellitus with hyperosmolarity without nonketotic hyperglycemic-hyperosmolar coma (NKHHC); F43.10 Post-traumatic stress disorder, unspecified; F41.1 Generalized anxiety disorder; I10 Essential (primary) hypertension; F20.0 Paranoid schizophrenia; Z79.899 Other long term (current) drug therapy; Z79.4 Long term (current) use of insulin; E78.00 Pure hypercholesterolemia, unspecified; Z91.19 Patient's noncompliance with other medical treatment and regimen; F17.210 Nicotine dependence, cigarettes, uncomplicated; I16.0 Hypertensive urgency; E83.42 Hypomagnesemia

== ENCOUNTER 2018-11-23 23:14 | Emergency (ER) | payer MEDICARE ==
[~2018-11-23] VITALS: Ht 175.3 cm; Wt 93.2 kg
[~2018-11-23 23:14] MED LIST changes: +CARV12.5 PO; +DEPA250T32 PO; +INVE234I IM; +MINI1CAP PO; +MIRT1TAB17 PO; +NIFE30TA7 PO; +QUET1TAB8 PO; +SERT-155 PO
[2018-11-23 23:15] VITALS: BP 179/91
[2018-11-23] MEDS ORDERED: DERMABOND TOPICAL SKIN ADHESIVE TOP ONE (23:45)
== END 2018-11-23 23:58 | disposition home or self-care (01) ==
LOC: M ED 23:14
DX: S61.412A Laceration without foreign body of left hand, initial encounter (principal); W26.0XXA Contact with knife, initial encounter; Y92.9 Unspecified place or not applicable; Y93.G1 Activity, food preparation and clean up; F17.210 Nicotine dependence, cigarettes, uncomplicated; Z79.4 Long term (current) use of insulin; Z79.891 Long term (current) use of opiate analgesic; Z79.899 Other long term (current) drug therapy

== ENCOUNTER 2018-12-21 22:11 | Inpatient (IN) | payer MEDICARE ==
[~2018-12-21] VITALS: Ht 175.3 cm; Wt 77.4 kg
[2018-12-21] MEDS: DOCUSATE SODIUM 100 MG CAP PO SCH (21:00)
[~2018-12-21 22:11] MED LIST changes: +NIFE1TAB52 PO; -NIFE30TA7 PO; -SERT-155 PO; +SERT25TA21 PO; -SERT25TA88 PO; +SERT50TA29 PO
[2018-12-21 22:53] LABS: BASO % 0.5 % (0.0-1.0); EOS # 0.1 10^3/uL (0.0-0.50); EOS % 1.1 % (0.0-3.0); HEMATOCRIT 39.3 % (42.0-52.0); HEMOGLOBIN 12.7 g/dl (13.5-17.5); LYMPH # 2.1 10^3/uL (1.5-4.5); MEAN CORPUSCULAR HEMOGLOBIN 27.9 pg (27.0-33.0); MEAN CORPUSCULAR HGB CONC 32.3 g/dl (32.0-36.5); MEAN CORPUSCULAR VOLUME 86.2 fl (80.0-96.0); MONO # 0.3 10^3/uL (0.0-0.8); NEUTROPHILS # 3.6 10^3/uL (1.8-7.7); NEUTROPHILS % 59.2 % (36.0-66.0); PLATELET COUNT, AUTOMATED 228 10^3/uL (150-450); RED BLOOD COUNT 4.56 10^6/uL (4.30-6.10); WHITE BLOOD COUNT 6.1 10^3/uL (4.0-10.0)
[2018-12-21 22:57] LABS: VENOUS BASE EXCESS -2.9 (-2.0-2.0); VENOUS HCO3 22.2 MEQ/L (23.0-27.0); VENOUS O2 SATURATION 97.5 % (60.0-80.0); VENOUS PARTIAL PRESSURE CO2 39.9 mmHg (38.0-50.0); VENOUS PARTIAL PRESSURE O2 96.4 mmHg (30.0-50.0); VENOUS PH 7.363 UNITS (7.330-7.430); VENOUS TOTAL CO2 23.4 MEQ/L (24.0-28.0)
[2018-12-21 23:25] LABS: HEMOGLOBIN A1c 14.6 %
[2018-12-22] VITALS (7 sets, daily range): BP systolic 104–153; BP diastolic 59–83
[2018-12-22] MEDS ORDERED: NS 1,000 ML IV ONE
[2018-12-22] MEDS ORDERED: lisinopriL 40 MG TAB PO ONE (00:15)
[2018-12-22] MEDS ORDERED: CARVedilol 12.5 MG TAB PO ONE (00:15)
[2018-12-22 00:41] LABS: ACETAMINOPHEN LEVEL 3.2 UG/ML (10.0-30.0); ALBUMIN 1.7 GM/DL (3.2-5.2); ALT/SGPT 47 U/L (12-78); BILIRUBIN,DIRECT < 0.1 MG/DL (0.0-0.2); BILIRUBIN,TOTAL 0.2 MG/DL (0.2-1.0); BLOOD UREA NITROGEN 21 MG/DL (7-18); CALCIUM LEVEL 7.8 MG/DL (8.5-10.1); CARBON DIOXIDE LEVEL 23 MEQ/L (21-32); CHLORIDE LEVEL 83 MEQ/L (98-107); CREATININE FOR GFR 2.01 MG/DL (0.70-1.30); ETHYL ALCOHOL (ETHANOL) 0.012 % (0.000-0.010); FREE T4 1.09 NG/DL (0.76-1.46); GLOMERULAR FILTRATION RATE 45.8 (>60); POTASSIUM SERUM 4.4 MEQ/L (3.5-5.1); SALICYLATE LEVEL 3.1 MG/DL (5.0-30.0); SODIUM LEVEL 124 MEQ/L (136-145)
[2018-12-22 00:42] LABS: AMPHETAMINES LEVEL URINE NEGATIVE (NEGATIVE); BARBITURATES URINE NEGATIVE (NEGATIVE); BENZODIAZEPINES URINE NEGATIVE (NEGATIVE); CANNABINOIDS URINE NEGATIVE (NEGATIVE); COCAINE METABOLITE URINE NEGATIVE (NEGATIVE); METHADONE URINE NEGATIVE (NEGATIVE); OPIATES URINE NEGATIVE (NEGATIVE); PHENCYCLIDINE URINE NEGATIVE (NEGATIVE)
[2018-12-22 01:04] LABS: GLUCOSE, FASTING 1160 MG/DL (70-100)
[2018-12-22] MEDS ORDERED: INSULIN HUMAN REGULAR 100 UNITS in NS 99 ML IV SCH ×2 (01:14→01:28)
[2018-12-22] MEDS ORDERED: INSULIN IV RATE CHANGE DOCUMENTATION ML/HR XX SCH ×2 (01:15→01:30)
[2018-12-22] MEDS ORDERED: HumuLIN R (REGULAR) INSULIN (NovoLIN R) **100U/ML** PER UNIT IV ONE ×2 (01:15→04:45)
[2018-12-22 01:27] LABS: OSMOLALITY SERUM 337 MOSM/KG (275-295)
[2018-12-22] MEDS ORDERED: MAALOX 30 ML SUSP *UDC PO PRN (01:30)
[2018-12-22] MEDS ORDERED: ACETAMINOPHEN TAB 650MG DOSE (2X325MG) PO PRN (01:30)
[2018-12-22] MEDS ORDERED: MOM 30ML SUSPENSION UDC PO PRN (01:30)
--- NOTE | 2018-12-22 01:37 | HPEPDOC ---
General Date of Admission 12/22/18 Date of Service: Dec 22, 2018 Attending Physician: NITA VIDALES MD Chief Complaint The patient is a 48-year-old male admitted with a reason for visit of High Blood Sugar. Source: Patient Exam Limitations: No limitations Timing/Duration: Day(s) Severity: Mild Associated Symptoms: Loss of appetite, Weakness, Dizziness History of Present Illness 48 years old AA male with past medical history of diabetes mellitus, noncompliance to his meds, diabetic neuropathy, nephropathy, hypertension, bipolar disorder has been using cocaine at home to last Tuesday and also not taking his meds called EMS. On Tuesday for his high blood sugar, but returned the EMS didn't want to come to the hospital again. He called today and came with chief complaints of dizziness, weakness, not feeling well. In ED, he also mentioned that he would like to kill himself by jumping IN [place] . We were asked to admit patient with hyperosmolar nonketotic hyperglycemic acidosis and suicidal ideations Home Medications Scheduled Carvedilol (Carvedilol) 12.5 Mg Tablet, 12.5 MG PO BID, (Reported) Divalproex Sodium (Divalproex Sodium) 250 Mg Tablet.dr, 750 MG PO BID, (Reported) Gabapentin (Neurontin) 300 Mg Capsule, 600 MG PO TID, (Reported) Insulin Detemir (Levemir) 100 Unit/1 Ml Vial, 60 UNITS SC QHS, (Reported) Insulin Human Lispro (Humalog) 100 Unit/1 Ml Vial, 1 DOSE SC ACHS, (Reported) PER SLIDING SCALE Lisinopril (Lisinopril) 40 Mg Tab, 40 MG PO DAILY, (Reported) Mirtazapine (Mirtazapine) 45 Mg Tab.rapdis, 45 MG PO QHS, (Reported) Nifedipine (Nifedipine ER) 30 Mg Tab.er.24, 60 MG PO DAILY, (Reported) Paliperidone Palmitate (Invega Sustenna) 234 Mg/1.5 Ml Syringe, 234 MG IM QMONTH, (Reported) Potassium Phos/Sodium Phos (Phos-Nak Packet) 1 Each Powd.pack, 1 PKT PO QID, (Reported) Prazosin Hcl (Prazosin HCl) 1 Mg Capsule, 4 MG PO QHS, (Reported) Quetiapine Fumarate (Quetiapine Fumarate) 100 Mg Tablet, 100 MG PO QHS, (Reporte d) TAKES WITH 400MG FOR 500MG TOTAL AT QHS Quetiapine Fumarate (Quetiapine Fumarate) 400 Mg Tablet, 400 MG PO QHS, (Reported) TAKES WITH 100MG FOR 500MG TOTAL AT QHS Sertraline HCl (Sertraline HCl) 50 Mg Tablet, 150 MG PO DAILY, (Reported) Allergies Coded Allergies: No Known Allergies (Unverified , 10/19/18) Past Medical History Medical History Diabetes mellitus with nephropathy, neuropathy, hypertension, bipolar disorder Surgical History As above Family History Significant Family History: No pertinent family hx Social History * Smoker: current smoker Alcohol: heavy Drugs: cocaine, heroin, marijuana, IV drug use A-FIB/CHADSVASC A-FIB History Current/History of A-Fib/PAF?: No Review of Systems Constitutional: Reports: Weakness Eyes: Denies: Pain, Vision change, Conjunctivae inflammation, Eyelid inflammation, Redness, Other ENT: Denies: Head Aches, Ear Pain, Dysphagia, Sinus Congestion, Post Nasal Drip, Sore Throat, Epistaxis, Other Symptoms Skin: Denies: Rash, Lesions, Jaundice, Bruising, Itching, Dry, Breakdown, Nail Changes, Other Pulmonary: Denies: Dyspnea, Cough, Pleuritic Chest Pain, Other Symptoms Cardiovascular: Denies: Chest Pain, Palpitations, Orthopnea, Paroxysmal Noc. Dyspnea, Edema, Lt Headedness, Other Symptoms Gastrointestinal: Denies: Nausea, Vomiting, Abdominal Pain, Diarrhea, Constipation, Melena, Hematochezia, Other Symptoms Hematologic: Denies: Bruising, Bleeding Excessively, Petecchia, Purpura, Enlarged Lymph Nodes, Other Hematologic Endocrine: Denies: Polydipsia, Polyphagia, Polyuria, Heat Intolerance, Cold Intolerance, Other Endocrine Sx Musculoskeletal: Denies: Neck Pain, Back Pain, Shoulder Pain, Arm Pain, Hand Pain, Leg Pain, Foot Pain, Joint Pain, Muscle Pain, Spasms, Other Symptoms Neurological: Denies: Weakness, Numbness, Incoordination, Change in speech, Confusion, Seizures, Other Symptoms Psych: Denies: Mood Normal, Anxiety, Depression, Memory Issues, Thoughts of Self Harm, Anger, Thoughts of Harming Other, Other Psych Physical Examination General Exam: Positive: Alert Eye Exam: Positive: PERRLA ENT Exam: Positive: Atraumatic, Mucous membr. moist/pink Neck Exam: Positive: Supple Chest Exam: Positive: Clear to auscultation, Normal air movement Heart Exam: Positive: Rate Normal, Normal S1, Normal S2 Abdomen Exam: Positive: Normal bowel sounds Extremity Exam: Positive: Normal pulses Skin Exam: Positive: Nl turgor and temperature Neuro Exam: Positive: Normal Speech, Strength at 5/5 X4 ext, Normal Tone Psych Exam: Positive: Mental status NL, Mood NL Vital Signs Vital Signs Date Time Temp Pulse Resp B/P (MAP) Pulse Ox O2 Delivery O2 Flow Rate FiO2 12/22/18 00:32 98 18 161/86 (111) 98 12/21/18 23:16 Room Air 12/21/18 22:27 99.6 Laboratory Data Labs 24H Laboratory Tests 2 12/21/18 22:43: Immature Granulocyte % (Auto) 0.2, White Blood Count 6.1, Red Blood Count 4.56, Hemoglobin 12.7L, Hematocrit 39.3L, Mean Corpuscular Volume 86.2, Mean Corpuscu lar Hemoglobin 27.9, Mean Corpuscular Hemoglobin Concent 32.3, Red Cell Distribution Width 13.0, Platelet Count 228, Neutrophils (%) (Auto) 59.2, Lymphocytes (%) (Auto) 34.0, Monocytes (%) (Auto) 5.0, Eosinophils (%) (Auto) 1.1, Basophils (%) (Auto) 0.5, Neutrophils # (Auto) 3.6, Lymphocytes # (Auto) 2.1, Monocytes # (Auto) 0.3, Eosinophils # (Auto) 0.1, Basophils # (Auto) 0.0, Nucleated Red Blood Cells % (auto) 0.0, Blood Gas Bicarbonate Standard 22.0, Venous Blood pH 7.363, Venous Blood Partial Pressure CO2 39.9, Venous Blood Partial Pressure O2 96.4H, Venous Blood Total Carbon Dioxide 23.4L, Venous Blood HCO3 22.2L, Venous Blood Oxygen Saturation 97.5H, Venous Blood Base Excess - 2.9L, Anion Gap 18H, Glomerular Filtration Rate 45.8L, Estimated Mean Plasma Glucose 372H, Hemoglobin A1c 14.6, Osmolality 337H, Calcium Level 7.8L, Aspartate Amino Transf (AST/SGOT) 31, Alanine Aminotransferase (ALT/SGPT) 47, Alkaline Phosphatase 146H, Total Bilirubin 0.2, Direct Bilirubin < 0.1, Total Protein 6.0L, Albumin 1.7L, Albumin/Globulin Ratio 0.40L, Thyroid Stimulating Hormone (TSH) 1.360, Free Thyroxine 1.09, Salicylates Level 3.1L, Acetaminophen Level 3.2L, Ethyl Alcohol Level 0.012H 12/21/18 22:52: Urine Color STRAW, Urine Appearance CLEAR, Urine pH 6.0, Urine Specific [place] [address] 1.022, Urine Protein 2+H, Urine Glucose (UA) 3+H, Urine Ketones 1+H, Urine Blood 1+H, Urine Nitrite NEGATIVE, Urine Bilirubin NEGATIVE, Urine Urobilinogen 0.2, Urine Leukocyte Esterase NEGATIVE, Urine WBC (Auto) 0, Urine RBC (Auto) 0, Urine Hyaline Casts (Auto) 0, Urine Bacteria (Auto) NEGATIVE, Urine Squamous Epithelial Cells 0, Urine Sperm (Auto) , Urine Amphetamines Screen NEGATIVE, U rine Benzodiazepines Screen NEGATIVE, Urine Opiates Screen NEGATIVE, Urine Methadone Screen NEGATIVE, Urine Barbiturates Screen NEGATIVE, Urine Phencyclidine Screen NEGATIVE, Urine Cocaine Metabolite Screen NEGATIVE, Urine Cannabinoids Screen NEGATIVE CBC/BMP Laboratory Tests 12/21/18 22:43 Red Blood Count 4.56, Mean Corpuscular Volume 86.2, Mean Corpuscular Hemoglobin 27.9, Mean Corpuscular Hemoglobin Concent 32.3, Red Cell Distribution Width 13.0, Neutrophils (%) (Auto) 59.2, Lymphocytes (%) (Auto) 34.0, Monocytes (%) (Auto) 5.0, Eosinophils (%) (Auto) 1.1, Basophils (%) (Auto) 0.5, Neutrophils # (Auto) 3.6, Lymphocytes # (Auto) 2.1, Monocytes # (Auto) 0.3, Eosinophils # (Auto) 0.1, Basophils # (Auto) 0.0 Problems (1) Diabetic hyperosmolar non-ketotic state Status: Acute Problem Text: Admit to MICU IVF normal saline 150 mL per hour Insulin infusion as per ICU protocol Will adjust the insulin dose according to fingerstick blood sugar 6 AM labs are pending Carbohydrate consistent diet Continue all home meds Extensive counseling regarding noncompliance and drug use were done DVT prophylaxis with Lovenox (2) Bipolar disorder Status: Chronic Problem Text: As per psych Continue home meds (3) Suicidal ideation Status: Acute Problem Text: One-to-one watch Please call psychiatric consult in a.m for possible evaluation and transferred to inpatient mental health unit once medically clear Continue home meds Plan / VTE VTE Prophylaxis Ordered?: Yes NITA VIDALES MD Dec 22, 2018 01:37
[2018-12-22] MEDS: NS 1,000 ML IV SCH ×2 (01:50→08:10)
[2018-12-22] MEDS ORDERED: QUET400T PO (01:59)
[2018-12-22] MEDS ORDERED: INSUDET SC (01:59)
[2018-12-22] MEDS ORDERED: QUET1TAB8 PO (01:59)
[2018-12-22] MEDS ORDERED: CARV12.5 PO (01:59)
[2018-12-22] MEDS ORDERED: SERT50TA29 PO (01:59)
[2018-12-22] MEDS ORDERED: DIVA250T67 PO (01:59)
[2018-12-22] MEDS ORDERED: INVE234I IM (01:59)
[2018-12-22] MEDS ORDERED: NIFE1TAB52 PO (01:59)
[2018-12-22] MEDS ORDERED: PRAZ1CAP PO (01:59)
[2018-12-22] MEDS ORDERED: INSUHUMDS SC (01:59)
[2018-12-22] MEDS ORDERED: NEUR300C PO (01:59)
[2018-12-22] MEDS ORDERED: MIRT1TAB17 PO (01:59)
[2018-12-22 05:33] LABS: CALCIUM LEVEL 7.5 MG/DL (8.5-10.1); CREATININE FOR GFR 1.84 MG/DL (0.70-1.30); GLOMERULAR FILTRATION RATE 50.7 (>60); POTASSIUM SERUM 3.7 MEQ/L (3.5-5.1)
--- NOTE | 2018-12-22 06:00 | ECGEPIP ---
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
--- NOTE | 2018-12-22 08:21 | IPNPDOC ---
Date Seen The patient was seen on 12/22/18. Progress Note SUBJECTIVE: Mr. Virk, a 48-year-old male with a history of DM, noncompliance with his home medications, diabetic neuropathy, nephropathy, HTN, bipolar disorder, substance abuse (cocaine, alcohol, heroin), HIV and Hepatitis C who was admitted for hyperosmolar nonketotic hyperglycemic acidosis and suicidal ideations, was examined on bedside rounds this morning. He states that he is feeling poorly today and that many things are bothering him but was not able to specify his symptoms. He was sleepy on exam today, however was in no acute distress and was able to answer questions in full sentences. He reports his main symptom is feeling weak, dizzy, and shaky. This morning he refused his IVF and insulin. He states that he has not been taking his home medications consistently, including his insulin. He states that he is continuing to have suicidal ideations of jumping into the [place] and that these symptoms have not improved, however he has no current plan inpatient. He denies fevers, chills, abdominal pain, nausea, vomiting, chest pain, shortness of breath, and headache. OBJECTIVE PHYSICAL EXAMINATION: VITAL SIGNS: Please see below. GENERAL: Patient is examined laying in bed feeling weak and sleepy, no acute distress, able to answer questions in full sentences HEENT: NC, AT, mildly dry mucous membranes, CARDIOVASCULAR: Regular rate and rhythm, Normal S1S2, no murmurs, rubs, or gallops appreciated RESPIRATORY: Clear to auscultation bilaterally, no wheezing, rales or rhonchi appreciated ABDOMINAL: soft, nontender to palpation, normal bowel sounds in all four quadran ts, no rigidity, rebound or guarding, no masses or hepatosplenomegaly appreciated EXTREMITIES: no edema, cyanosis, or clubbing noted NEUROLOGICAL: No focal deficits noted, able to move all four limbs spontaneously PSYCHOLOGICAL: Is reporting suicidal ideations, no current plan inpatient LABORATORY DATA, IMAGING STUDIES, MICROBIOLOGY: Please see below. DVT prophylaxis ordered?: Lovenox ASSESSMENT AND PLAN: Mr. Virk is a 48-year-old male with a history of DM, noncompliance with his home medications, diabetic neuropathy, nephropathy, HTN, bipolar disorder, substance abuse (cocaine, alcohol, heroin), HIV and Hepatitis C who was admitted for hyperosmolar nonketotic hyperglycemic acidosis and suicidal ideations. PROBLEMS: 1) Diabetic hyperosmolar non-ketotic state -Currently is in the ICU, plan to downgrade him to Med/Surg today -Patient was on IVF normal saline 150 mL per hour, insulin infusions as per ICU protocol -Carbohydrate consistent diet -Was continuing all home medications -This morning he refused his IVF and insulin -Extensive counseling regarding noncompliance and drug use were done -Continue to optimize blood sugars 2) Suicidal ideation -One-to-one watch -Will consult psychiatry for possible evaluation and transfer to inpatient mental health unit once medically clear -Continue home medications -Patient has no current plan inpatient 3) Bipolar disorder - chronic -Continue home medications -Will consult psychiatry -Will follow psychiatry recommendations DISPOSITION: Patient reports he is feeling poorly today, with his main symptom being weakness, dizziness, and shakiness. Patients history of noncompliance with home medications was discussed. Patient was refusing IVF and insulin this morning. Plan to downgrade to Med/Surg today. Will consult psychiatry for possible evaluation and transfer to inpatient mental health unit once medically clear. C/w home medications. VS, I&O, 24H, [facility] Vital Signs/I&O Vital Signs Date Time Temp Pulse Resp B/P (MAP) Pulse Ox O2 Delivery O2 Flow Rate FiO2 12/22/18 05:00 77 18 134/69 (90) 97 12/22/18 04:07 98.7 12/21/18 23:16 Room Air I&O- Last 24 Hours up to 6 AM 12/22/18 06:00 Intake Total 310 ml Output Total 750 ml Balance -440 ml Laboratory Data 24H LABS Laboratory Tests 2 12/21/18 22:43: Immature Granulocyte % (Auto) 0.2, White Blood Count 6.1, Red Blood Count 4.56, Hemoglobin 12.7L, Hematocrit 39.3L, Mean Corpuscular Volume 86.2, Mean Corpuscular Hemoglobin 27.9, Mean Corpuscular Hemoglobin Concent 32.3, Red Cell Distribution Width 13.0, Platelet Count 228, Neutrophils (%) (Auto) 59.2, Lymphocytes (%) (Auto) 34.0, Monocytes (%) (Auto) 5.0, Eosinophils (%) (Auto) 1.1, Basophils (%) (Auto) 0.5, Neutrophils # (Auto) 3.6, Lymphocytes # (Auto) 2.1, Monocytes # (Auto) 0.3, Eosinophils # (Auto) 0.1, Basophils # (Auto) 0.0, Nucleated Red Blood Cells % (auto) 0.0, Blood Gas Bicarbonate Standard 22.0, Venous Blood pH 7.363, Venous Blood Partial Pressure CO2 39.9, Venous Blood Partial Pressure O2 96.4H, Venous Blood Total Carbon Dioxide 23.4L, Venous Blood HCO3 22.2L, Venous Blood Oxygen Saturation 97.5H, Venous Blood Base Excess - 2.9L, Anion Gap 18H, Glomerular Filtration Rate 45.8L, Estimated Mean Plasma Glucose 372H, Hemoglobin A1c 14.6, Osmolality 337H, Calcium Level 7.8L, Aspartate Amino Transf (AST/SGOT) 31, Alanine Aminotransferase (ALT/SGPT) 47, Alkaline Phosphatase 146H, Total Bilirubin 0.2, Direct Bilirubin < 0.1, Total Protein 6.0L, Albumin 1.7L, Albumin/Globulin Ratio 0.40L, Thyroid Stimulating Hormone (TSH) 1.360, Free Thyroxine 1.09, Salicylates Level 3.1L, Acetaminophen Level 3.2L, Ethyl Alcohol Level 0.012H 12/21/18 22:52: Urine Color STRAW, Urine Appearance CLEAR, Urine pH 6.0, Urine Specific [place] 1.022, Urine Protein 2+H, Urine Glucose (UA) 3+H, Urine Ketones 1+H, Urine Blood 1+H, Urine Nitrite NEGATIVE, Urine Bilirubin NEGATIVE, Urine Urobilinogen 0.2, Urine Leukocyte Esterase NEGATIVE, Urine WBC (Auto) 0, Urine RBC (Auto) 0, Urine Hyaline Casts (Auto) 0, Urine Bacteria (Auto) NEGATIVE, Urine Squamous Epithelial Cells 0, Urine Sperm (Auto) , Urine Amphetamines Screen NEGATIVE, Urine Benzodiazepines Screen NEGATIVE, Urine Opiates Screen NEGATIVE, Urine Methadone Screen NEGATIVE, Urine Barbiturates Screen NEGATIVE, Urine Phencyclidine Screen NEGATIVE, Urine Cocaine Metabolite Screen NEGATIVE, Urine Cannabinoids Screen NEGATIVE 12/22/18 04:46: Anion Gap 7L, Glomerular Filtration Rate 50.7L, Calcium Level 7.5L, Blood Urea Nitrogen 19H, Creatinine 1.84H, Sodium Level 130L, Potassium Level 3.7, Chloride Level 95L, Carbon Dioxide Level 28 12/22/18 07:26: Bedside Glucose (Misc Panel) 575*H CBC/BMP Laboratory Tests 12/21/18 22:43 Red Blood Count 4.56, Mean Corpuscular Volume 86.2, Mean Corpuscular Hemoglobin 27.9, Mean Corpuscular Hemoglobin Concent 32.3, Red Cell Distribution Width 13.0, Neutrophils (%) (Auto) 59.2, Lymphocytes (%) (Auto) 34.0, Monocytes (%) (Auto) 5.0, Eosinophils (%) (Auto) 1.1, Basophils (%) (Auto) 0.5, Neutrophils # (Auto) 3.6, Lymphocytes # (Auto) 2.1, Monocytes # (Auto) 0.3, Eosinophils # (Auto) 0.1, Basophils # (Auto) 0.0 12/22/18 04:46 Calcium Level 7.5 L Attending Note I have personally seen and examined the patient this am. I agree with the finding and the plan of care as documented above in the resident's note. Hyperosmolar Hyperglycemia : Patient refused IV insulin infusion however has agreed to sub cut insulin . His FS > 600 have started him on Levemir and lispro. This is going to be an pranay with his psychiatric problems. Will call psych once sugars are better controlled. Will continue on one on one observation. Refusing IVF. Pulled out his IV. Willian on CKD stage 3 due to severe hyperglycemia with osmotic diuresis. Schizophrenia, poly substance abuse, Suicidal ideas: continue one on one. Hyponatremia; this is pseudohyponatremia due to elevated sugars. He has mentioned to staff that he is HIV positive and Hepc positive but never treated. He has been using, cocaine, alcohol, marihuana and heroin in the past 1 week so just has not been taking his meds. He does have insulin and all his meds at home he was just not taking them. CYNTHIA MOORE OMS-3 Dec 22, 2018 08:21 RODOLFO MOREJON MD Dec 22, 2018 10:34
[2018-12-22 08:53] LABS: CREATININE FOR GFR 1.72 MG/DL (0.70-1.30); GLOMERULAR FILTRATION RATE 54.8 (>60); POTASSIUM SERUM 3.7 MEQ/L (3.5-5.1)
[2018-12-22] MEDS ORDERED: LEVEMIR (INSULIN DETEMIR) 1 UNITS/0.01ML SC ONE (09:00)
[2018-12-22] MEDS ORDERED: HumaLOG INSULIN (NovoLOG) PER UNIT SC ONE (09:00)
[2018-12-22] MEDS: DOCUSATE SODIUM 100 MG CAP PO SCH ×2 (09:00→21:40)
[2018-12-22] MEDS: ENOXAPARIN 40 MG/0.4 ML SYRINGE (J1650) SC SCH (09:21)
[2018-12-22] MEDS: GABAPENTIN 300 MG CAP PO SCH ×3 (09:21→21:39)
[2018-12-22] MEDS: NIFEdipine 30 MG XL TAB PO SCH (09:22)
[2018-12-22] MEDS: CARVedilol 12.5 MG TAB PO SCH ×2 (09:22→21:39)
[2018-12-22] MEDS: DIVALPROEX 250 MG TAB PO SCH ×2 (09:22→21:39)
[2018-12-22] MEDS: lisinopriL 40 MG TAB PO SCH (09:22)
[2018-12-22] MEDS: SERTRALINE HCL 50 MG TAB PO SCH (09:22)
[2018-12-22] MEDS: NEUTRA-PHOS 1.5 GM PACKET PO SCH ×4 (09:23→21:37)
[2018-12-22] MEDS ORDERED: GLUCOSE 4 GM CHEW TABLET PO PRN (11:30)
[2018-12-22] MEDS ORDERED: DEXTROSE 50% 50 ML SYRINGE IV PRN (11:30)
[2018-12-22] MEDS ORDERED: GLUCAGON FOR INJ 1 MG VIAL (J1610) SC PRN (11:30)
[2018-12-22] MEDS: HumaLOG INSULIN (NovoLOG) PER UNIT SC SCH ×3 (11:59→21:40)
[2018-12-22 13:30] LABS: CALCIUM LEVEL 7.7 MG/DL (8.5-10.1); CREATININE FOR GFR 1.63 MG/DL (0.70-1.30); GLOMERULAR FILTRATION RATE 58.3 (>60); POTASSIUM SERUM 3.5 MEQ/L (3.5-5.1)
[2018-12-22 17:25] LABS: CALCIUM LEVEL 7.9 MG/DL (8.5-10.1); CREATININE FOR GFR 1.86 MG/DL (0.70-1.30); GLOMERULAR FILTRATION RATE 50.1 (>60); POTASSIUM SERUM 3.4 MEQ/L (3.5-5.1)
[2018-12-22 21:00] LABS: CALCIUM LEVEL 7.5 MG/DL (8.5-10.1); CREATININE FOR GFR 1.93 MG/DL (0.70-1.30); POTASSIUM SERUM 3.4 MEQ/L (3.5-5.1)
[2018-12-22] MEDS ORDERED: LEVEMIR (INSULIN DETEMIR) 1 UNITS/0.01ML SC SCH (21:00)
[2018-12-22] MEDS: QUEtiapine FUMARATE 200 MG TAB PO SCH (21:38)
[2018-12-22] MEDS: PRAZOSIN 1 MG CAP PO SCH (21:38)
[2018-12-22] MEDS: QUEtiapine FUMARATE 100 MG TAB PO SCH (21:38)
[2018-12-23 00:47] LABS: CALCIUM LEVEL 7.4 MG/DL (8.5-10.1); CREATININE FOR GFR 1.87 MG/DL (0.70-1.30); GLOMERULAR FILTRATION RATE 49.8 (>60); POTASSIUM SERUM 3.5 MEQ/L (3.5-5.1)
[2018-12-23 06:00] VITALS: BP 134/76
[2018-12-23 06:10] LABS: HEMATOCRIT 32.4 % (42.0-52.0); HEMOGLOBIN 11.2 g/dl (13.5-17.5); MEAN CORPUSCULAR HEMOGLOBIN 27.4 pg (27.0-33.0); MEAN CORPUSCULAR HGB CONC 34.6 g/dl (32.0-36.5); MEAN CORPUSCULAR VOLUME 79.2 fl (80.0-96.0); PLATELET COUNT, AUTOMATED 212 10^3/uL (150-450); RED BLOOD COUNT 4.09 10^6/uL (4.30-6.10)
[2018-12-23 06:32] LABS: ALBUMIN 1.4 GM/DL (3.2-5.2); ALT/SGPT 45 U/L (12-78); BILIRUBIN,TOTAL < 0.1 MG/DL (0.2-1.0); BLOOD UREA NITROGEN 25 MG/DL (7-18); CALCIUM LEVEL 7.6 MG/DL (8.5-10.1); CARBON DIOXIDE LEVEL 30 MEQ/L (21-32); CHLORIDE LEVEL 101 MEQ/L (98-107); CREATININE FOR GFR 1.69 MG/DL (0.70-1.30); GLOMERULAR FILTRATION RATE 55.9 (>60); GLUCOSE, FASTING 331 MG/DL (70-100); MAGNESIUM LEVEL 1.7 MG/DL (1.8-2.4); POTASSIUM SERUM 3.3 MEQ/L (3.5-5.1); SODIUM LEVEL 137 MEQ/L (136-145); TOTAL PROTEIN 5.6 GM/DL (6.4-8.2)
[2018-12-23] MEDS ORDERED: MAGNESIUM OXIDE 400 MG TAB (MAG-OX) PO ONE (08:00)
[2018-12-23] MEDS ORDERED: POTASSIUM CHLORIDE 10 MEQ SR TABLET PO ONE (08:00)
[2018-12-23] MEDS: DOCUSATE SODIUM 100 MG CAP PO SCH ×2 (09:00→20:34)
[2018-12-23] MEDS: ENOXAPARIN 40 MG/0.4 ML SYRINGE (J1650) SC SCH (09:08)
[2018-12-23] MEDS: HumaLOG INSULIN (NovoLOG) PER UNIT SC SCH ×4 (09:08→20:35)
[2018-12-23] MEDS: SERTRALINE HCL 50 MG TAB PO SCH (09:09)
[2018-12-23] MEDS: DIVALPROEX 250 MG TAB PO SCH ×2 (09:09→20:33)
[2018-12-23] MEDS: GABAPENTIN 300 MG CAP PO SCH ×3 (09:10→20:33)
[2018-12-23] MEDS: CARVedilol 12.5 MG TAB PO SCH ×2 (09:10→20:34)
[2018-12-23] MEDS: NIFEdipine 30 MG XL TAB PO SCH (09:11)
[2018-12-23] MEDS: NEUTRA-PHOS 1.5 GM PACKET PO SCH ×4 (09:11→20:33)
[2018-12-23] MEDS: lisinopriL 40 MG TAB PO SCH (09:11)
[2018-12-23 12:00] VITALS: BP 119/70
[2018-12-23] MEDS: NICOTINE POLACRILEX 2 MG GUM PO PRN ×4 (12:45→21:10)
[2018-12-23] MEDS ORDERED: LEVEMIR (INSULIN DETEMIR) 1 UNITS/0.01ML SC ONE (13:30)
[2018-12-23 14:00] VITALS: BP 119/70
[2018-12-23] MEDS ORDERED: HumaLOG INSULIN (NovoLOG) PER UNIT SC ONE (17:15)
--- NOTE | 2018-12-23 17:40 | IPNPDOC ---
Text Note Date of Service The patient was seen on 12/23/18. NOTE SUBJECTIVE:examined at bedside, no new complaints. States "If I leave this hospital, I won't be safe." Still having suicidal ideation of jumping in [place]. Stable overnight. Blood sugars mildly improved. OBJECTIVE PHYSICAL EXAMINATION: VITAL SIGNS: Please see below. GENERAL: resting comfy, appearing tired, NAD, A&Ox3, able to answer questions in full sentences HEENT: NC, AT CARDIOVASCULAR: Regular rate and rhythm, Normal S1S2, no murmurs, rubs, or gallops RESPIRATORY: Clear to auscultation bilaterally, no wheezing, rales or rhonchi ABDOMINAL: soft, nontender to palpation, normal bowel sounds in all four quadrant EXTREMITIES: no edema or peripheral tenderness NEUROLOGICAL: No focal deficits noted, able to move all four limbs spontaneously PSYCHOLOGICAL: Is reporting suicidal ideations, no current plan inpatient LABORATORY DATA, IMAGING STUDIES, MICROBIOLOGY: Please see below. DVT prophylaxis ordered?: Lovenox ASSESSMENT AND PLAN: Mr. Virk is a 48-year-old male with a history of DM, no ncompliance with his home medications, diabetic neuropathy, nephropathy, HTN, bipolar disorder, substance abuse (cocaine, alcohol, heroin), HIV and Hepatitis C who was admitted for hyperosmolar nonketotic hyperglycemic acidosis and suicidal ideations. PROBLEMS: 1) Diabetic hyperosmolar non-ketotic state -resolved s/p ICU insulin drip & protocol. -Carbohydrate consistent diet -continue titrating insulin regimen -Extensive counseling regarding noncompliance and drug use were done -gabapentin for assocaited neuropathy 2) Suicidal ideation -One-to-one watch. Still having active suidical thoughts of jumping in [place] -Psych Dr. Gonzalez consulted, appreciate input. Plan to ultimately move to [facility] when seen by Psych -currently, pt denies any plan to harm self or others while hospitalized 3) Bipolar disorder - chronic -Continue home medications -Awaiting psychiatry assessment/recs Tobacco use nicotine gum. Counseled on smoking cessation Hx polysubstance abuse msot recently used cocaine prior to admission. Psych is consulted HIV & Hep C per reports, pt never sought treatment. Is noncompliant with health was made aware of risks and even fatal risk of his behavior HTN controlled on current regimen DVT ppx: Lovenox sc DISPOSITION: pt is medically improved and currently awaiting Psych eval. Ultimately will need [facility] for active suicidal thoughts. VS,Fishbone, I+O VS, Fishbone, I+O Laboratory Tests 12/22/18 20:16 Calcium Level 7.5 L 12/23/18 00:10 Calcium Level 7.4 L 12/23/18 05:39 Calcium Level 7.6 L, Red Blood Count 4.09 L, Mean Corpuscular Volume 79.2 L, Mean Corpuscular Hemoglobin 27.4, Mean Corpuscular Hemoglobin Concent 34.6, Red Cell Distribution Width 12.6, Aspartate Amino Transf (AST/SGOT) 47 H, Alanine Aminotransferase (ALT/SGPT) 45, Alkaline Phosphatase 106, Total Bilirubin < 0.1 #L, Total Protein 5.6 L, Albumin 1.4 L Vital Signs Date Time Temp Pulse Resp B/P (MAP) Pulse Ox O2 Delivery O2 Flow Rate FiO2 12/23/18 14:00 97.6 72 16 119/70 (86) 100 12/21/18 23:16 Room Air I&O- Last 24 Hours up to 6 AM 12/23/18 06:00 Intake Total 2170 ml Output Total 2050 ml Balance 120 ml Attending Note Attending Note I have personally seen and examined the patient this am. I agree with the finding and the plan of care as documented above in the resident's note. YEHUDA WETZEL DO Dec 23, 2018 17:40 RODOLFO MOREJON MD Dec 26, 2018 21:45
[2018-12-23] MEDS ORDERED: INSUDET SC (18:31)
[2018-12-23] MEDS: QUEtiapine FUMARATE 100 MG TAB PO SCH (20:33)
[2018-12-23] MEDS: QUEtiapine FUMARATE 200 MG TAB PO SCH (20:33)
[2018-12-23 20:34] VITALS: BP 124/74
[2018-12-23] MEDS: PRAZOSIN 1 MG CAP PO SCH (20:34)
[2018-12-23] MEDS ORDERED: LEVEMIR (INSULIN DETEMIR) 1 UNITS/0.01ML SC SCH ×3 (21:00)
[2018-12-23 22:00] VITALS: BP 124/77
--- NOTE | 2018-12-24 12:45 | MHCR ---
DATE OF CONSULTATION: 12/23/2018 CHIEF COMPLAINT: Feels depressed. SUBJECTIVE: He is 48 years old. Lives on his own. Has a long history of psychiatric difficulties and psychosis since his early 20s possibly. Carries a diagnosis of schizoaffective disorder bipolar type, as well as posttraumatic stress disorder, polysubstance abuse, generalized anxiety disorder. He has been hospitalized on a couple of occasions in inpatient psychiatry, most recently 10/23/2018, discharged 11/06/2018. Was seen by Dr. Orourke, whose discharge summary is reviewed, and it has details related to the circumstances of that admission, as well as hospital course and background history. I have been asked to see this patient, as he was admitted to the hospital. I have been asked to see him now that he is getting medically stable by the hospitalists. He had come in with diabetic instability. Had not been adherent to treatment recommendations, and diabetes had been out of control. He says over the last couple of weeks his condition has deteriorated. Has been feeling increasingly depressed. Has not been able to attend treatment. [place] it [place] on the outskirts of [facility] and it is an hours distance by walking. Has tended to walk but says his landlord has helped him, as well. He takes him to grocery stores. After discharge, says was unable to followup, as he had his appointments all recorded in his phone. Says lost the phone and, therefore, the appointments. Says was supposed to call them, as well, but did not do so. Says has had difficulties coping, given the distance, lack of transportation. Says began feeling unwell the last few weeks. Condition deteriorated further. [place] dizzy. Was eating but not healthy. Then suggests felt a bit confused, as well, and about a week ago, called the ambulance. When they got there, he decided not to come to the hospital. Says thought would manage but called them again within the last 48 hours and was brought to the hospital. He had been seen by the hospitalists and is in the process of being stabilized medically, mostly the diabetes. Says has been depressed, has been thinking of taking his own life, jumping off a bridge that he has passed on a number of occasions. Also, he hears voices, sees images which are related to his experiences in the aftermath of February 14. He was there and helped with the clearing of the site. Says these images, sounds tended to vary but have increased lately. This is in addition to auditory hallucinations he has had since his early 20s, apparently. He was first diagnosed with psychiatric difficulties in the early . Has had several hospitalizations. The most one was here about 1-1/2 months ago. Does say the sounds and sites that he hears are both related to periods after February 14 and before. Has several stressors. Is away from his family. His father is elderly lives in [facility]. Says the patient's older brother checks on him. He communicates with him daily. Says he lost his mother and sister last year. PAST PSYCHIATRIC HISTORY: As indicated above. Please see previous summaries for details. MEDICAL HISTORY: Has diabetes mellitus among other ailments and has not been adherent to recommendations and has not had followups. Diabetes was unstable. Has been stabilized currently. MENTAL STATUS EXAMINATION: He is sitting up in bed. He was having dinner. Was just about finished when I saw him. He is in hospital clothes. He is neat. He is cooperative. There is no agitation. No psychomotor retardation. He is coherent. No formal thought disorder. Affect is restricted but reactive. He is tearful at times. He has suicidal thoughts with a plan. No homicidal ideas or intents. No fluctuation of consciousness. Does not appear internally preoccupied. No delusions at present. Cognition grossly intact. Judgment is fair. Insight fair, as well. ASSESSMENT: 1. Schizoaffective disorder, bipolar type, current episode depressed. 2. Posttraumatic stress disorder by history. 3. Generalized anxiety disorder by history. VITAL SIGNS: Blood pressure 119/70, pulse 72, temperature 97.6. INVESTIGATIONS: Shows his toxicology which was essentially negative. Metabolic profile essentially within normal limits currently except for some parameters, such as fasting glucose was 321 today. It has been trending down. Complete blood count essentially within normal limits except for low hemoglobin 11.2, hematocrit 22.4, white cell count is 7. He is significantly depressed. Has poor supports. Is suicidal with plans. He has been medically unstable. He has not been adhering to treatment recommendations and poor residential situation, social supports have all contributed to his current state. He remains suicidal and is being stabilized medically. RECOMMENDATIONS: He needs inpatient psychiatric hospitalization for further stabilization and management once he is fully medically stable. An admission DCS application has been made. Thank you for the consult. If you have any questions, please call. The assessment took 30 minutes. GRIFFIN
[2019-02-21] MEDS ORDERED: SUBO2MIS SL (11:48)
== END 2018-12-23 23:00 | DRG 638 ==
LOC: M ED 22:11 → M ED INP 12-22 01:22 → M ICU 12-22 04:04 → M MSPAV 12-22 14:00
PROVIDERS: ADMIT Internal Medicine; ATTEND Internal Medicine Nephrology
DX: E11.00 Type 2 diabetes mellitus with hyperosmolarity without nonketotic hyperglycemic-hyperosmolar coma (NKHHC) (principal); R45.851 Suicidal ideations; F31.30 Bipolar disorder, current episode depressed, mild or moderate severity, unspecified; E11.40 Type 2 diabetes mellitus with diabetic neuropathy, unspecified; E11.21 Type 2 diabetes mellitus with diabetic nephropathy; I10 Essential (primary) hypertension; Z91.14 Patient's other noncompliance with medication regimen; F14.90 Cocaine use, unspecified, uncomplicated; Z79.899 Other long term (current) drug therapy; Z79.4 Long term (current) use of insulin; F41.1 Generalized anxiety disorder

== ENCOUNTER 2018-12-23 11:11 | Inpatient (IN) | payer MEDICARE ==
[~2018-12-23] VITALS: Ht 175.3 cm; Wt 92.2 kg
[~2018-12-23 11:11] MED LIST changes: +DIVA250T67 PO; +NEUR300C PO; -NIFE1TAB52 PO; +NIFE30TA7 PO; +PRAZ1CAP PO; +QUET400T PO; +SERT-155 PO; -SERT25TA21 PO; +SERT25TA88 PO; -SERT50TA29 PO
[2018-12-23] MEDS ORDERED: INSUDET SC (18:31)
[2018-12-23] MEDS ORDERED: MOM 30ML SUSPENSION UDC PO PRN (21:45)
[2018-12-23] MEDS ORDERED: traZODone 50 MG TAB PO PRN (21:45)
[2018-12-23 23:20] VITALS: BP 107/62
[2018-12-24] MEDS ORDERED: GLUCAGON FOR INJ 1 MG VIAL (J1610) SC PRN (00:15)
[2018-12-24] MEDS ORDERED: GLUCOSE 4 GM CHEW TABLET PO PRN (00:15)
[2018-12-24] MEDS ORDERED: DEXTROSE 50% 50 ML SYRINGE IV PRN (00:15)
[2018-12-24] MEDS: NICOTINE POLACRILEX 2 MG GUM PO PRN ×7 (06:18→23:18)
[2018-12-24] MEDS: HumaLOG INSULIN (NovoLOG) PER UNIT SC SCH ×4 (06:43→22:13)
[2018-12-24 06:53] VITALS: BP 111/74
[2018-12-24] MEDS: NEUTRA-PHOS 1.5 GM PACKET PO SCH ×4 (09:15→21:53)
[2018-12-24] MEDS: DOCUSATE SODIUM 100 MG CAP PO SCH ×2 (09:17→21:52)
[2018-12-24] MEDS: LISINOPRIL 40 MG TAB PO SCH (09:17)
[2018-12-24] MEDS: SERTRALINE HCL 50 MG TAB PO SCH (09:17)
[2018-12-24] MEDS: CARVedilol 12.5 MG TAB PO SCH ×2 (09:17→21:53)
[2018-12-24] MEDS: NIFEdipine 30 MG XL TAB PO SCH (09:17)
[2018-12-24] MEDS: GABAPENTIN 300 MG CAP PO SCH ×3 (09:17→21:53)
[2018-12-24] MEDS: DIVALPROEX 250 MG TAB PO SCH ×2 (09:17→21:52)
[2018-12-24] MEDS: QUEtiapine FUMARATE 100 MG TAB PO SCH (11:56)
[2018-12-24 12:07] VITALS: BP 109/60
[2018-12-24 18:17] VITALS: BP 113/64
[2018-12-24 20:00] VITALS: BP 127/74
[2018-12-24] MEDS ORDERED: QUEtiapine FUMARATE 100 MG TAB PO SCH (21:00)
[2018-12-24] MEDS ORDERED: LEVEMIR (INSULIN DETEMIR) 1 UNITS/0.01ML SC SCH (21:00)
[2018-12-24] MEDS ORDERED: HumaLOG INSULIN (NovoLOG) PER UNIT SC SCH (21:00)
[2018-12-24] MEDS: MAALOX 30 ML SUSP *UDC PO PRN (21:15)
--- NOTE | 2018-12-24 21:16 | HPEPDOC ---
[facility] Medical History & Physical Date of Admission Dec 23, 2018 Date of Service: Dec 24, 2018 History and Physical CHIEF COMPLAINT: medical evaluation for DM HISTORY OF PRESENT ILLNESS: 48 yo male admitted to [facility] being seen for medical evaluation. He was recently discharged from hospital on 12/23/18 with DKA. He states no recent hypoglycemic episodes, no CP, no SOB, no N, no V. states feels like he "needs something for withdraw" from EtOH but denies tremors/hallucinations. Patient keeps his eyes closed during exam. He states his last EtOH beverage was 12/21/18 Past Medical History: Insulin-dependent diabetes with retinopathy, neuropathy Hypertension. Hypercholesterolemia. Polysubstance abuse. Schizoaffective disorder. Bipolar. Posttraumatic stress disorder (PTSD). PAST SURGICAL HISTORY: None. SOCIAL HISTORY: Smokes 3 ppd, daily EtOH use (beer and hard liquor) - last use 2 days ago; no prior history of etoh withdraw seizures FAMILY HISTORY: mother from diabetes complications, father alive and healthy ALLERGIES: Please see below. REVIEW OF SYSTEMS:10 systems reviewed and negative except as per HPI HOME MEDICATIONS: Please see below. PHYSICAL EXAMINATION: VITAL SIGNS as below General: pleasant , NAD AAOX3, no tremor HEENT: patient keeps eyes closed during most of exam; NELLY/EOMI; oral mucosa moist neck: supple, no adenopathy, no JVD, no thryomegally HRRR no murmur LCTA no W/R/R Musculoskeletal: no scoliosis, no CVA tenderness Abdomen: soft NT ND NABS Ext: no edema Skin: no rash LABORATORY DATA: See below. A/P: Diabetes - on mcfp insulin with hyperglycemia Continue lantus 70 unit HS, SSI ac/hs, hypoglycemia protocol Goal of blood sugars under 200 diabetic neuropathy - continue gabapentin CKD stage III due to diabetic nephropathy and hypertensive kidney disease - continue lisinopril, keep well hydrated. monitor Hypokalemia with hypomagnesia - repeat labs from hospitalization and replace HTN - continue lisinopril, coreg, procardia XL and prazosin (for PTSD and HTN) Tobacco dependence - nicotene gum prn Alcohol dependence with no history of withdraw seizures - monitor for withdraw, po thiamine, MVit and folate Will continue to follow this patient until blood sugars are stabilized Vital Signs Vital Signs Date Time Temp Pulse Resp B/P (MAP) Pulse Ox O2 Delivery O2 Flow Rate FiO2 12/24/18 12:07 97.9 79 16 109/60 (76) Laboratory Data Labs 24H Laboratory Tests 2 12/23/18 23:30: Bedside Glucose (Misc Panel) 329H 12/24/18 06:13: Bedside Glucose (Misc Panel) 187H 12/24/18 11:53: Bedside Glucose (Misc Panel) 318H 12/24/18 16:37: Bedside Glucose (Misc Panel) 419H CBC/BMP Item Value Date Time White Blood Count 7.0 10^3/uL 12/23/18 0539 Hemoglobin 11.2 g/dl L 12/23/18 0539 Hematocrit 32.4 % L 12/23/18 0539 Platelet Count 212 10^3/uL 12/23/18 0539 Sodium Level 137 MEQ/L 12/23/18 0539 Potassium Level 3.3 MEQ/L L 12/23/18 0539 Blood Urea Nitrogen 25 MG/DL H 12/23/18 0539 Creatinine 1.69 MG/DL H 12/23/18 0539 Fasting Glucose 331 MG/DL H 12/23/18 0539 Hemoglobin A1c 14.6 % 12/21/18 2243 Magnesium Level 1.7 MG/DL L 12/23/18 0539 Calcium Level 7.6 MG/DL L 12/23/18 0539 Albumin 1.4 GM/DL L 12/23/18 0539 Thyroid Stimulating Hormone (TSH) 1.360 uIU/ML 12/21/18 2243 Home Medications Scheduled Carvedilol (Carvedilol) 12.5 Mg Tablet, 12.5 MG PO BID Divalproex Sodium (Divalproex Sodium) 250 Mg Tablet.dr, 750 MG PO BID Gabapentin (Neurontin) 300 Mg Capsule, 600 MG PO TID Insulin Detemir (Levemir) 100 Unit/1 Ml Vial, 80 UNITS SC QHS Insulin Human Lispro (Humalog) 100 Unit/1 Ml Vial, 1 DOSE SC ACHS PER SLIDING SCALE Lisinopril (Lisinopril) 40 Mg Tab, 40 MG PO DAILY Mirtazapine (Mirtazapine) 45 Mg Tab.rapdis, 45 MG PO QHS Nifedipine (Nifedipine ER) 30 Mg Tab.er.24, 60 MG PO DAILY Paliperidone Palmitate (Invega Sustenna) 234 Mg/1.5 Ml Syringe, 234 MG IM QMONTH Potassium Phos/Sodium Phos (Phos-Nak Packet) 1 Each Powd.pack, 1 PKT PO QID Prazosin Hcl (Prazosin HCl) 1 Mg Capsule, 4 MG PO QHS Quetiapine Fumarate (Quetiapine Fumarate) 100 Mg Tablet, 100 MG PO QHS TAKES WITH 400MG FOR 500MG TOTAL AT QHS Quetiapine Fumarate (Quetiapine Fumarate) 400 Mg Tablet, 400 MG PO QHS TAKES WITH 100MG FOR 500MG TOTAL AT QHS Sertraline HCl (Sertraline HCl) 50 Mg Tablet, 150 MG PO DAILY Allergies Coded Allergies: No Known Allergies (Unverified , 10/19/18) A-FIB/CHADSVASC A-FIB History Current/History of A-Fib/PAF?: No SHAYY SILVEIRA DO Dec 24, 2018 17:06
[2018-12-24] MEDS: QUEtiapine FUMARATE 200 MG TAB PO SCH (21:54)
[2018-12-24] MEDS: PRAZOSIN 1 MG CAP PO SCH (21:55)
[2018-12-25] MEDS: NICOTINE POLACRILEX 2 MG GUM PO PRN ×9 (03:50→23:04)
[2018-12-25] MEDS: HumaLOG INSULIN (NovoLOG) PER UNIT SC SCH ×4 (06:42→21:00)
[2018-12-25 07:05] VITALS: BP 134/70
[2018-12-25] MEDS: FOLIC ACID 1 MG TAB PO SCH (08:49)
[2018-12-25] MEDS: DOCUSATE SODIUM 100 MG CAP PO SCH ×2 (08:49→21:50)
[2018-12-25] MEDS: GABAPENTIN 300 MG CAP PO SCH ×3 (08:49→21:50)
[2018-12-25] MEDS: MULTIVITAMINS/MINERALS THERAP 1 TAB PO SCH (08:49)
[2018-12-25] MEDS: DIVALPROEX 250 MG TAB PO SCH ×2 (08:49→21:50)
[2018-12-25] MEDS: THIAMINE 100 MG TAB PO SCH (08:49)
[2018-12-25] MEDS: CARVedilol 12.5 MG TAB PO SCH ×2 (08:50→21:51)
[2018-12-25] MEDS: SERTRALINE HCL 50 MG TAB PO SCH (08:52)
[2018-12-25] MEDS: NEUTRA-PHOS 1.5 GM PACKET PO SCH ×4 (08:52→21:51)
[2018-12-25] MEDS: QUEtiapine FUMARATE 100 MG TAB PO SCH (08:52)
--- NOTE | 2018-12-25 10:02 | MHIPNPDOC ---
[facility] Progress Note Progress Note DATE OF SERVICE: 12/25/18 HISTORY: Per Dr. Gonzalez admit note: "He is 48 years old. Lives on his own. Has a long history of psychiatric difficulties and psychosis since his early 20s possibly. Carries a diagnosis of schizoaffective disorder bipolar type, as well as posttraumatic stress disorder, polysubstance abuse, generalized anxiety disorder. He has been hospitalized on a couple of occasions in inpatient psychiatry, most recently 10/23/2018, discharged 11/06/2018. Was seen by Dr. Orourke, whose discharge summary is reviewed, and it has details related to the circumstances of that admission, as well as hospital course and background history. I have been asked to see this patient, as he was admitted to the hospital. I have been asked to see him now that he is getting medically stable by the hospitalists. He had come in with diabetic instability. Had not been adherent to treatment recommendations, and diabetes had been out of control. He says over the last couple of weeks his condition has deteriorated. Has been feeling increasingly depressed. Has not been able to attend treatment. Says it is on the outskirts of [facility] and it is an hours distance by walking. Has tended to walk but says his landlord has helped him, as well. He takes him to grocery stores. After discharge, says was unable to followup, as he had his appointments all recorded in his phone. Says lost the phone and, therefore, the appointments. Says was supposed to call them, as well, but did not do so. Says has had difficulties coping, given the distance, lack of transportation. Says began feeling unwell the last few weeks. Condition deteriorated further. [place] dizzy. Was eating but not healthy. Then suggests felt a bit confused, as well, and about a week ago, called the ambulance. When they got there, he decided not to come to the hospital. Says thought would manage but called them again within the last 48 hours and was brought to the hospital. He had been seen by the hospitalists and is in the process of being stabilized medically, mostly the diabetes. Says has been depressed, has been thinking of taking his own life, jumping off a bridge that he has passed on a number of occasions. Also, he hears voices, sees images which are related to his experiences in the aftermath of February 14. He was there and helped with the clearing of the site. Says these images, sounds tended to vary but have increased lately. This is in addition to auditory hallucinations he has had since his early 20s, apparently. He was first diagnosed with psychiatric difficulties in the early . Has had several hospitalizations. The most one was here about 1-1/2 months ago. Does say the sounds and sites that he hears are both related to periods after February 14 and before. Has several stressors. Is away from his family. His father is elderly ill in [facility]. Says the patient's older brother checks on him. He communicates with him daily. Says he lost his mother and sister las t year." VITAL SIGNS: See below. NEW TEST RESULTS: See below. CURRENT MEDICATIONS: See below. MENTAL STATUS EXAMINATION: He is in hospital clothes. He is neat. He is cooperative. There is no agitation. No psychomotor retardation. He is coherent. No formal thought disorder. Affect is restricted and anxious. He denies suicidal thoughts and no plan. No homicidal ideas or intents. No fluctuation of consciousness. Does not appear internally preoccupied. No delusions at present. Cognition grossly intact. Judgment is fair. Insight fair, as well. DIAGNOSES: Schizoaffective disorder, bipolar type, current episode depressed. cocaine use d/o Posttraumatic stress disorder by history. Generalized anxiety disorder by history. ASSESSMENT:Pt seen and states that his mood is "very depressed" and anxious. Admits he used cocaine prior admission and advised that depression and anxious most likely withdrawal from cocaine that should improve with time and no drug use. Advised will prescribe atarax prn anxiety. Pt asking for ativan stating he was drinking a lot of alcohol prior admission but admit note and utox due not indicate significant alochol use and appears to be med seeking. He has a history of malingering for narcotics and housing in the past on the unit multiple times. States he slept well last night. Feels he is tolerating his medications and they're beneficial. He is attending groups and finding them helpful. He denies SI/HI, hallucinations, delusions. Pt feels safe here. MANAGEMENT PLAN: continue plan. Add atarax 50mg q6hr prn anxiety Depakote 750 mg BID Gabapentin 600 mg TID Prazosin 4 mg QHS SEROquel 100 mg DAILY QSEROquel 400 mg QHS Zoloft 150 mg DAILY Trazodone 50 mg QHSP PRN PO INSOMNIA atarax 50mg q6hr prn anxiety TIME SPENT: 30 minutes. Vital Signs Vital Signs Date Time Temp Pulse Resp B/P (MAP) Pulse Ox O2 Delivery O2 Flow Rate FiO2 12/25/18 08:50 87 132/80 12/25/18 07:05 97.7 14 Laboratory Data 24H Labs Laboratory Tests 2 12/24/18 11:53: Bedside Glucose (Misc Panel) 318H 12/24/18 16:37: Bedside Glucose (Misc Panel) 419H 12/24/18 20:14: Bedside Glucose (Misc Panel) 389H 12/25/18 06:37: Bedside Glucose (Misc Panel) 310H 12/25/18 08:51: CBC/BMP Current Medications Current Medications Acetaminophen (Tylenol Tab) 650 mg Q6HP PRN PO HEADACHE or DISCOMFORT; Start 12/23/18 at 21:45 Al Hydrox/Mg Hydrox/Simethicone (Mylanta) 30 ml Q4HP PRN PO HEARTBURN/INDIGESTION Last administered on 12/24/18at 21:15; Start 12/23/18 at 21:45 Carvedilol (COReg) 12.5 mg BID PO Last administered on 12/25/18at 08:50; Start 12/24/18 at 09:00 Dextrose (Dextrose 50%) 25 ml ASDIRECTED PRN IV SEE LABEL COMMENTS; Start 12/24/18 at 00:15 Divalproex Sodium (Depakote) 750 mg BID PO Last administered on 12/25/18at 08:49; Start 12/24/18 at 09:00 Docusate Sodium (Colace) 100 mg BID PO Last administered on 12/25/18at 08:49; Start 12/24/18 at 09:00 Folic Acid (Folic Acid) 1 mg DAILY PO Last administered on 12/25/18at 08:49; Start 12/25/18 at 09:00 Gabapentin (Neurontin) 600 mg TID PO Last administered on 12/25/18at 08:49; Start 12/24/18 at 09:00 Glucagon (Glucagon) 1 mg ASDIRECTED PRN SC SEE LABEL COMMENTS; Start 12/24/18 at 00:15 Glucose (Glucose) 16 GM ASDIRECTED PRN PO SEE LABEL COMMENTS; Start 12/24/18 at 00:15 Insulin Detemir (Levemir Insulin) 70 units QHS SC Last administered on 12/24/18at 21:51; Start 12/24/18 at 21:00 Insulin Human Lispro (HumaLOG INSULIN) See Protocol Table AC SC Last administered on 12/24/18at 16:41; Start 12/24/18 at 07:30; Stop 12/24/18 at 21:19; Status DC Insulin Human Lispro (HumaLOG INSULIN) See Protocol Table AC SC Last administered on 12/25/18at 06:42; Start 12/25/18 at 07:30 Insulin Human Lispro (HumaLOG INSULIN) See Protocol Table QHS SC ; Start 12/24/18 at 21:00; Stop 12/24/18 at 21:19; Status DC Insulin Human Lispro (HumaLOG INSULIN) See Protocol Table QHS SC Last administered on 12/24/18at 22:13; Start 12/24/18 at 21:00 Lisinopril (Prinivil) 40 mg DAILY PO Last administered on 12/24/18at 09:17; Start 12/24/18 at 09:00 Magnesium Hydroxide (Milk Of Magnesia) 30 ml DAILYPRN PRN PO CONSTIPATION; Start 12/23/18 at 21:45 Multivitamins (Theragram-M) 1 tab DAILY PO Last administered on 12/25/18at 08:49; Start 12/25/18 at 09:00 Nicotine (Nicorette) 4 mg Q2HP PRN PO NICOTINE WITHDRAWAL Last administered on 12/25/18 08:53; Start 12/23/18 at 21:45 Nifedipine (Procardia Xl) 60 mg DAILY PO Last administered on 12/24/18at 09:17; Start 12/24/18 at 09:00 Potassium Phos/ Sodium Phos (Neutra-Phos 1.5gm Packet) 1 pkt QID PO Last administered on 12/25/18 08:52; Start 12/24/18 at 09:00 Prazosin HCl (Minipress) 4 mg QHS PO Last administered on 12/24/18at 21:55; Start 12/24/18 at 21:00 Quetiapine Fumarate (SEROquel) 100 mg DAILY PO Last administered on 12/25/18at 08:52; Start 12/24/18 at 09:00 Quetiapine Fumarate (SEROquel) 100 mg QHS PO ; Start 12/24/18 at 21:00; Status Cancel Quetiapine Fumarate (SEROquel) 400 mg QHS PO Last administered on 12/24/18at 21:54; Start 12/24/18 at 21:00 Sertraline HCl (Zoloft) 150 mg DAILY PO Last administered on 12/25/18at 08:52; Start 12/24/18 at 09:00 Thiamine HCl (Thiamine HCl) 100 mg DAILY PO Last administered on 12/25/18at 08:49; Start 12/25/18 at 09:00 Trazodone HCl (Desyrel) 50 mg QHSP PRN PO INSOMNIA; Start 12/23/18 at 21:45 Allergies Coded Allergies: No Known Allergies (Unverified , 10/19/18) DYLAN ADAIR DO Dec 25, 2018 10:02 am
[2018-12-25] MEDS: LISINOPRIL 40 MG TAB PO SCH (10:04)
[2018-12-25] MEDS: NIFEdipine 30 MG XL TAB PO SCH (10:05)
[2018-12-25] MEDS: hydrOXYzine 50 MG TAB PO PRN (10:18)
[2018-12-25 10:56] LABS: CALCIUM LEVEL 7.6 MG/DL (8.5-10.1); CREATININE FOR GFR 1.92 MG/DL (0.70-1.30); GLOMERULAR FILTRATION RATE 48.3 (>60); MAGNESIUM LEVEL 1.7 MG/DL (1.8-2.4); POTASSIUM SERUM 4.1 MEQ/L (3.5-5.1)
[2018-12-25] MEDS: MAGNESIUM OXIDE 400 MG TAB (MAG-OX) PO SCH (12:20)
[2018-12-25 18:00] VITALS: BP 110/68
[2018-12-25] MEDS ORDERED: LEVEMIR (INSULIN DETEMIR) 1 UNITS/0.01ML SC SCH (21:00)
--- NOTE | 2018-12-25 21:41 | MHHPE ---
DATE OF ADMISSION: 12/23/2018 CHIEF COMPLAINT: Feels depressed. SUBJECTIVE: He is 48 years old, has a history of diabetes as well as schizoaffective disorder bipolar type, and posttraumatic stress disorder, generalized anxiety disorder. He is transferred from the medical floor, where I had seen him yesterday on the consult service. Please refer to my summary for reasons for the consultation, circumstances of his current admission, past history, and mental status examination when I saw him. He has been significantly depressed, has felt suicidal, and has been admitted to the inpatient psychiatry unit. Has been off his medicines for a while, has had some trouble with transportation as well. Says had an okay night, slept some, feels depressed, says has been thinking of going for rehabilitation to [facility]. Concentration is fair but mostly feels down. PAST PSYCHIATRIC HISTORY AND BACKGROUND HISTORY: Please refer to previous summary. MENTAL STATUS EXAMINATION: He is sitting up in bed, head somewhat down, fair eye contact. No agitation, no psychomotor retardation. Answers questions briefly, logically, coherently. Appears depressed, has suicidal thoughts, no firm plans. No homicidal ideas or intents. No evidence of any psychosis. His cognition is grossly intact. His judgment is quite questionable, insight fair. ASSESSMENT: Schizoaffective disorder, bipolar type, current episode depressed, severe without psychotic features. Posttraumatic stress disorder. Generalized anxiety disorder. PLAN: He is admitted to the inpatient psychiatry unit and placed on relevant precautions. We will look at obtaining collateral information. He will continue with his current medication regimen. He will be involved in individual, group, and milieu therapy. He will be seen by medicine as indicated. He will be discharged with followup once he is stable. I would anticipate a 5-7 day stay. Discharge planning would also possibly need to include substance abuse treatment.
[2018-12-25] MEDS: PRAZOSIN 1 MG CAP PO SCH (21:50)
[2018-12-25] MEDS: QUEtiapine FUMARATE 200 MG TAB PO SCH (21:50)
[2018-12-26] MEDS: NICOTINE POLACRILEX 2 MG GUM PO PRN ×9 (03:50→22:48)
[2018-12-26] MEDS: HumaLOG INSULIN (NovoLOG) PER UNIT SC SCH ×4 (06:32→20:51)
[2018-12-26 06:38] VITALS: BP 120/58
[2018-12-26 07:10] LABS: CALCIUM LEVEL 7.3 MG/DL (8.5-10.1); CREATININE FOR GFR 1.7 MG/DL (0.70-1.30); GLOMERULAR FILTRATION RATE 55.5 (>60); MAGNESIUM LEVEL 1.5 MG/DL (1.8-2.4); POTASSIUM SERUM 4.2 MEQ/L (3.5-5.1)
[2018-12-26] MEDS: NEUTRA-PHOS 1.5 GM PACKET PO SCH ×4 (08:10→21:54)
[2018-12-26] MEDS: NIFEdipine 30 MG XL TAB PO SCH (08:11)
[2018-12-26] MEDS: SERTRALINE HCL 50 MG TAB PO SCH (08:11)
[2018-12-26] MEDS: QUEtiapine FUMARATE 100 MG TAB PO SCH (08:11)
[2018-12-26] MEDS: MAGNESIUM OXIDE 400 MG TAB (MAG-OX) PO SCH (08:11)
[2018-12-26] MEDS: DOCUSATE SODIUM 100 MG CAP PO SCH ×2 (08:11→21:54)
[2018-12-26] MEDS: GABAPENTIN 300 MG CAP PO SCH ×3 (08:11→21:54)
[2018-12-26] MEDS: LISINOPRIL 40 MG TAB PO SCH (08:12)
[2018-12-26] MEDS: CARVedilol 12.5 MG TAB PO SCH ×2 (08:12→21:53)
[2018-12-26] MEDS: THIAMINE 100 MG TAB PO SCH (08:12)
[2018-12-26] MEDS: DIVALPROEX 250 MG TAB PO SCH ×2 (08:12→21:54)
[2018-12-26] MEDS: FOLIC ACID 1 MG TAB PO SCH (08:12)
[2018-12-26] MEDS: MULTIVITAMINS/MINERALS THERAP 1 TAB PO SCH (08:12)
--- NOTE | 2018-12-26 09:41 | MHIPNPDOC ---
[facility] Progress Note Progress Note DATE OF SERVICE: 12/26/18 HISTORY: Per Dr. Gonzalez admit note: "He is 48 years old. Lives on his own. Has a long history of psychiatric difficulties and psychosis since his early 20s possibly. Carries a diagnosis of schizoaffective disorder bipolar type, as well as posttraumatic stress disorder, polysubstance abuse, generalized anxiety disorder. He has been hospitalized on a couple of occasions in inpatient psychiatry, most recently 10/23/2018, discharged 11/06/2018. Was seen by Dr. Orourke, whose discharge summary is reviewed, and it has details related to the circumstances of that admission, as well as hospital course and background history. I have been asked to see this patient, as he was admitted to the hospital. I have been asked to see him now that he is getting medically stable by the hospitalists. He had come in with diabetic instability. Had not been adherent to treatment recommendations, and diabetes had been out of control. He says over the last couple of weeks his condition has deteriorated. Has been feeling increasingly depressed. Has not been able to attend treatment. Says it is on the outskirts of [facility] and it is an hours distance by walking. Has tended to walk but says his landlord has helped him, as well. He takes him to grocery stores. After discharge, says was unable to followup, as he had his appointments all recorded in his phone. Says lost the phone and, therefore, the appointments. Says was supposed to call them, as well, but did not do so. Says has had difficulties coping, given the distance, lack of transportation. Says began feeling unwell the last few weeks. Condition deteriorated further. [place] dizzy. Was eating but not healthy. Then suggests felt a bit confused, as well, and about a week ago, called the ambulance. When they got there, he decided not to come to the hospital. Says thought would manage but called them again within the last 48 hours and was brought to the hospital. He had been seen by the hospitalists and is in the process of being stabilized medically, mostly the diabetes. Says has been depressed, has been thinking of taking his own life, jumping off a bridge that he has passed on a number of occasions. Also, he hears voices, sees images which are related to his experiences in the aftermath of February 14. He was there and helped with the clearing of the site. Says these images, sounds tended to vary but have increased lately. This is in addition to auditory hallucinations he has had since his early 20s, apparently. He was first diagnosed with psychiatric difficulties in the early . Has had several hospitalizations. The most one was here about 1-1/2 months ago. Does say the sounds and sites that he hears are both related to periods after February 14 and before. Has several stressors. Is away from his family. His father is elderly ill in [facility]. Says the patient's older brother checks on him. He communicates with him daily. Says he lost his mother and sister last year." VITAL SIGNS: See below. NEW TEST RESULTS: See below. CURRENT MEDICATIONS: See below. MENTAL STATUS EXAMINATION: He is in hospital clothes. He is neat. He is cooperative. There is no agitation. No psychomotor retardation. He is coherent. No formal thought disorder. Affect is restricted and anxious. He denies suicidal thoughts and no plan. No homicidal ideas or intents. No fluctuation of consciousness. Does not appear internally preoccupied. No delusions at present. Cognition grossly intact. Judgment is fair. Insight fair, as well. DIAGNOSES: Schizoaffective disorder, bipolar type, current episode depressed. cocaine use d/o Posttraumatic stress disorder by history. Generalized anxiety disorder by history. ASSESSMENT:Pt seen and states he isn't doing good "b/c I'm sober" and otherwise did not want to talk further. He appears irritable only when I ask him how he's doing otherwise appears euthymic and full range with peers. He is med seeking for ativan and a regular diet (he has uncontrolled DM) consistent with previous admissions and malingering behavior. He is calling rehabs ([facility]) to facilitate being accepted for substance abuse treatment. He has a history of malingering for narcotics and housing in the past on the unit multiple times. Slept well last night. He is tolerating his medications and they're beneficial. He is attending groups and finding them helpful. He denies SI/HI, hallucinations, delusions. Pt feels safe here. MANAGEMENT PLAN: continue plan. refer inpatient rehab. Depakote 750 mg BID Gabapentin 600 mg TID Prazosin 4 mg QHS SEROquel 100 mg DAILY QSEROquel 400 mg QHS Zoloft 150 mg DAILY Trazodone 50 mg QHSP PRN PO INSOMNIA atarax 50mg q6hr prn anxiety TIME SPENT: 30 minutes. Vital Signs Vital Signs Date Time Temp Pulse Resp B/P (MAP) Pulse Ox O2 Delivery O2 Flow Rate FiO2 12/26/18 08:12 86 12/26/18 08:11 135/75 12/26/18 06:38 98.1 12 Laboratory Data 24H Labs Laboratory Tests 2 12/25/18 10:02: Anion Gap 4L, Glomerular Filtration Rate 48.3L, Blood Urea Nitrogen 25H, Creatinine 1.92H, Sodium Level 138, Potassium Level 4.1#, Chloride Level 104, Carbon Dioxide Level 30, Calcium Level 7.6L, Magnesium Level 1.7L 12/25/18 12:15: Bedside Glucose (Misc Panel) 229H 12/25/18 16:43: Bedside Glucose (Misc Panel) 176H 12/25/18 21:00: Bedside Glucose (Misc Panel) 215H 12/26/18 06:21: Anion Gap 5L, Glomerular Filtration Rate 55.5L, Blood Urea Nitrogen 24H, Creatinine 1.70H, Sodium Level 139, Potassium Level 4.2, Chloride Level 104, Carbon Dioxide Level 30, Calcium Level 7.3L, Magnesium Level 1.5L 12/26/18 06:25: Bedside Glucose (Misc Panel) 444H CBC/BMP Laboratory Tests 12/25/18 10:02 Calcium Level 7.6 L 12/26/18 06:21 Calcium Level 7.3 L Current Medications Current Medications Acetaminophen (Tylenol Tab) 650 mg Q6HP PRN PO HEADACHE or DISCOMFORT; Start 12/23/18 at 21:45 Al Hydrox/Mg Hydrox/Simethicone (Mylanta) 30 ml Q4HP PRN PO HEARTBURN/INDIGESTION Last administered on 12/24/18at 21:15; Start 12/23/18 at 21:45 Carvedilol (COReg) 12.5 mg BID PO Last administered on 12/26/18at 08:12; Start 12/24/18 at 09:00 Dextrose (Dextrose 50%) 25 ml ASDIRECTED PRN IV SEE LABEL COMMENTS; Start 12/24/18 at 00:15 Divalproex Sodium (Depakote) 750 mg BID PO Last administered on 12/26/18at 08:12; Start 12/24/18 at 09:00 Docusate Sodium (Colace) 100 mg BID PO Last administered on 12/26/18at 08:11; Start 12/24/18 at 09:00 Folic Acid (Folic Acid) 1 mg DAILY PO Last administered on 12/26/18at 08:12; Start 12/25/18 at 09:00 Gabapentin (Neurontin) 600 mg TID PO Last administered on 12/26/18at 08:11; Start 12/24/18 at 09:00 Glucagon (Glucagon) 1 mg ASDIRECTED PRN SC SEE LABEL COMMENTS; Start 12/24/18 at 00:15 Glucose (Glucose) 16 GM ASDIRECTED PRN PO SEE LABEL COMMENTS; Start 12/24/18 at 00:15 Hydroxyzine HCl (Atarax) 50 mg Q6HP PRN PO ANXIETY/AGITATION Last administered on 12/25/18at 10:18; Start 12/25/18 at 10:15 Insulin Detemir (Levemir Insulin) 70 units QHS SC Last administered on 12/24/18at 21:51; Start 12/24/18 at 21:00; Stop 12/25/18 at 12:00; Status DC Insulin Detemir (Levemir Insulin) 74 units QHS SC Last administered on 12/25/18at 21:52; Start 12/25/18 at 21:00 Insulin Human Lispro (HumaLOG INSULIN) See Protocol Table AC SC Last administered on 12/24/18at 16:41; Start 12/24/18 at 07:30; Stop 12/24/18 at 21:19; Status DC Insulin Human Lispro (HumaLOG INSULIN) See Protocol Table AC SC Last administe red on 12/26/18at 06:32; Start 12/25/18 at 07:30 Insulin Human Lispro (HumaLOG INSULIN) See Protocol Table QHS SC ; Start 12/24/18 at 21:00; Stop 12/24/18 at 21:19; Status DC Insulin Human Lispro (HumaLOG INSULIN) See Protocol Table QHS SC Last administered on 12/24/18at 22:13; Start 12/24/18 at 21:00 Lisinopril (Prinivil) 40 mg DAILY PO Last administered on 12/26/18 08:12; Start 12/24/18 at 09:00 Magnesium Hydroxide (Milk Of Magnesia) 30 ml DAILYPRN PRN PO CONSTIPATION; Start 12/23/18 at 21:45 Magnesium Oxide (Mag-Ox) 400 mg DAILY PO Last administered on 12/26/18 08:11; Start 12/25/18 at 12:00 Multivitamins (Theragram-M) 1 tab DAILY PO Last administered on 12/26/18 08:12; Start 12/25/18 at 09:00 Nicotine (Nicorette) 4 mg Q2HP PRN PO NICOTINE WITHDRAWAL Last administered on 12/26/18 08:40; Start 12/23/18 at 21:45 Nifedipine (Procardia Xl) 60 mg DAILY PO Last administered on 12/26/18 08:11; Start 12/24/18 at 09:00 Potassium Phos/ Sodium Phos (Neutra-Phos 1.5gm Packet) 1 pkt QID PO Last administered on 12/26/18 08:10; Start 12/24/18 at 09:00 Prazosin HCl (Minipress) 4 mg QHS PO Last administered on 12/25/18 21:50; Start 12/24/18 at 21:00 Quetiapine Fumarate (SEROquel) 100 mg DAILY PO Last administered on 12/26/18 08:11; Start 12/24/18 at 09:00 Quetiapine Fumarate (SEROquel) 100 mg QHS PO ; Start 12/24/18 at 21:00; Status Cancel Quetiapine Fumarate (SEROquel) 400 mg QHS PO Last administered on 12/25/18 21:50; Start 12/24/18 at 21:00 Sertraline HCl (Zoloft) 150 mg DAILY PO Last administered on 12/26/18 08:11; Start 12/24/18 at 09:00 Thiamine HCl (Thiamine HCl) 100 mg DAILY PO Last administered on 12/26/18 08:12; Start 12/25/18 at 09:00 Trazodone HCl (Desyrel) 50 mg QHSP PRN PO INSOMNIA; Start 12/23/18 at 21:45 Allergies Coded Allergies: No Known Allergies (Unverified , 10/19/18) DYLAN ADAIR DO Dec 26, 2018 9:40 am
[2018-12-26 18:00] VITALS: BP 123/60
--- NOTE | 2018-12-26 20:40 | IPNPDOC ---
Subjective Date Seen The patient was seen on 12/26/18. at 500pm Subjective Chief Complaint/HPI consulted for co management of DM Events since last encounter Per discussion with the nursing staff. The patient's Accu-Cheks were elevated because he has been eating "food that he should not be in the eating" The patient is aware that his sugars are pretty high. He denies having blurry vision, polyuria or increased thirst. Objective Physical Examination General Exam: Positive: Cooperative Chest Exam: Positive: Clear to auscultation, Normal air movement Heart Exam: Positive: Rate Normal Abdomen Exam: Positive: Normal bowel sounds, Soft Extremity Exam: Positive: Other (normal gait) Assessment /Plan Assessment Mr. Thornton is a 48-year-old male who was admitted to the inpatient psych unit. We have been consulted to comanage his diabetes. #1. Diabetes. Accu-Cheks were elevated in the morning but improved throughout the day. Plan: Increase detemir from 74 units daily at bedtime to 80 units daily at bedtime, follow up in Accu-Cheks #2. Hypertension. Plan: Continue with current medications. Rest of the management for psychiatric conditions per primary team Thank you for consulting us. We will continue to follow the patient peripherally. Plan/VTE VTE Prophylaxis Ordered?: No VTE Exclusion Mechanical Proph: Low Risk for VTE VS, I&O, 24H, Fishbone Vital Signs/I&O Vital Signs Date Time Temp Pulse Resp B/P (MAP) Pulse Ox O2 Delivery O2 Flow Rate FiO2 12/26/18 18:00 97.6 84 16 123/60 (81) Laboratory Data 24H LABS Laboratory Tests 2 12/25/18 21:00: Bedside Glucose (Misc Panel) 215H 12/26/18 06:21: Anion Gap 5L, Glomerular Filtration Rate 55.5L, Blood Urea Nitrogen 24H, Creatinine 1.70H, Sodium Level 139, Potassium Level 4.2, Chloride Level 104, Carbon Dioxide Level 30, Calcium Level 7.3L, Magnesium Level 1.5L 12/26/18 06:25: Bedside Glucose (Misc Panel) 444H 12/26/18 11:23: Bedside Glucose (Misc Panel) 320H 12/26/18 16:54: Bedside Glucose (Misc Panel) 177H CBC/BMP Laboratory Tests 12/26/18 06:21 Calcium Level 7.3 L LWANGA,BRADY MD Dec 26, 2018 20:40
[2018-12-26] MEDS: LEVEMIR (INSULIN DETEMIR) 1 UNITS/0.01ML SC SCH (20:52)
[2018-12-26] MEDS: QUEtiapine FUMARATE 200 MG TAB PO SCH (21:52)
[2018-12-26] MEDS: PRAZOSIN 1 MG CAP PO SCH (21:54)
[2018-12-27] MEDS: NICOTINE POLACRILEX 2 MG GUM PO PRN ×9 (02:48→22:32)
[2018-12-27 06:30] VITALS: BP 137/72
[2018-12-27] MEDS: HumaLOG INSULIN (NovoLOG) PER UNIT SC SCH ×4 (06:52→21:00)
[2018-12-27] MEDS: DIVALPROEX 250 MG TAB PO SCH ×2 (09:08→21:41)
[2018-12-27] MEDS: SERTRALINE HCL 50 MG TAB PO SCH (09:08)
[2018-12-27] MEDS: QUEtiapine FUMARATE 100 MG TAB PO SCH (09:08)
[2018-12-27] MEDS: NEUTRA-PHOS 1.5 GM PACKET PO SCH ×4 (09:08→21:00)
[2018-12-27] MEDS: DOCUSATE SODIUM 100 MG CAP PO SCH ×2 (09:08→21:40)
[2018-12-27] MEDS: MAGNESIUM OXIDE 400 MG TAB (MAG-OX) PO SCH (09:08)
[2018-12-27] MEDS: GABAPENTIN 300 MG CAP PO SCH ×3 (09:09→21:41)
[2018-12-27] MEDS: FOLIC ACID 1 MG TAB PO SCH (09:09)
[2018-12-27] MEDS: THIAMINE 100 MG TAB PO SCH (09:09)
[2018-12-27] MEDS: CARVedilol 12.5 MG TAB PO SCH ×2 (09:09→21:41)
[2018-12-27] MEDS: MULTIVITAMINS/MINERALS THERAP 1 TAB PO SCH (09:09)
[2018-12-27] MEDS: LISINOPRIL 40 MG TAB PO SCH (09:09)
[2018-12-27] MEDS: NIFEdipine 30 MG XL TAB PO SCH (09:10)
--- NOTE | 2018-12-27 09:13 | MHIPNPDOC ---
[facility] Progress Note Progress Note DATE OF SERVICE: 12/27/18 HISTORY: Per Dr. Gonzalez admit note: "He is 48 years old. Lives on his own. Has a long history of psychiatric difficulties and psychosis since his early 20s possibly. Carries a diagnosis of schizoaffective disorder bipolar type, as well as posttraumatic stress disorder, polysubstance abuse, generalized anxiety disorder. He has been hospitalized on a couple of occasions in inpatient psychiatry, most recently 10/23/2018, discharged 11/06/2018. Was seen by Dr. Orourke, whose discharge summary is reviewed, and it has details related to the circumstances of that admission, as well as hospital course and background history. I have been asked to see this patient, as he was admitted to the hospital. I have been asked to see him now that he is getting medically stable by the hospitalists. He had come in with diabetic instability. Had not been adherent to treatment recommendations, and diabetes had been out of control. He says over the last couple of weeks his condition has deteriorated. Has been feeling increasingly depressed. Has not been able to attend treatment. Says it is on the outskirts of [facility] and it is an hours distance by walking. Has tended to walk but says his landlord has helped him, as well. He takes him to grocery stores. After discharge, says was unable to followup, as he had his appointments all recorded in his phone. Says lost the phone and, therefore, the appointments. Says was supposed to call them, as well, but did not do so. Says has had difficulties coping, given the distance, lack of transportation. Says began feeling unwell the last few weeks. Condition deteriorated further. Midnight dizzy. Was eating but not healthy. Then suggests felt a bit confused, as well, and about a week ago, called the ambulance. When they got there, he decided not to come to the hospital. Says thought would manage but called them again within the last 48 hours and was brought to the hospital. He had been seen by the hospitalists and is in the process of being stabilized medically, mostly the diabetes. Says has been depressed, has been thinking of taking his own life, jumping off a bridge that he has passed on a number of occasions. Also, he hears voices, sees images which are related to his experiences in the aftermath of February 14. He was there and helped with the clearing of the site. Says these images, sounds tended to vary but have increased lately. This is in addition to auditory hallucinations he has had since his early 20s, apparently. He was first diagnosed with psychiatric difficulties in the early . Has had several hospitalizations. The most one was here about 1-1/2 months ago. Does say the sounds and sites that he hears are both related to periods after February 14 and before. Has several stressors. Is away from his family. His father is elderly ill in [facility]. Says the patient's older brother checks on him. He communicates with him daily. Says he lost his mother and sister las t year." VITAL SIGNS: See below. NEW TEST RESULTS: glucose - 318 (having been high every morning and insulin dose needs to be adjusted by med doc) CURRENT MEDICATIONS: See below. MENTAL STATUS EXAMINATION: He is in hospital clothes. He is neat. He is cooperative. There is no agitation. No psychomotor retardation. He is coherent. No formal thought disorder. Affect is full and euthymic. Mood is "better". He denies suicidal thoughts and no plan. No homicidal ideas or intents. No fluctuation of consciousness. Does not appear internally preoccupied. No delusions at present. Cognition grossly intact. Judgment is fair. Insight fair, as well. DIAGNOSES: Schizoaffective disorder, bipolar type, current episode depressed. cocaine use d/o Posttraumatic stress disorder by history. Generalized anxiety disorder by history. ASSESSMENT:Pt seen and states he feel's better today, no longer irritable and depressed, with lack of cocaine use and improving cocaine withdrawal. He appears euthymic and full range with staff and peers. He is no longer med seeking. Would like to see med doctor today for adjustment in his insulin sliding scale as he believes it's too low b/c his sugars are running high. He is calling rehabs ([facility]) to facilitate being accepted for substance abuse treatment. He has a history of malingering for narcotics and housing in the past on the unit multiple times. Slept well last night. He is tolerating his medications and they're beneficial. He is attending groups and finding them helpful. He denies SI/HI, hallucinations, delusions. Pt feels safe here. MANAGEMENT PLAN: continue plan. refer inpatient rehab. Depakote 750 mg BID Gabapentin 600 mg TID Prazosin 4 mg QHS SEROquel 100 mg DAILY QSEROquel 400 mg QHS Zoloft 150 mg DAILY Trazodone 50 mg QHSP PRN PO INSOMNIA atarax 50mg q6hr prn anxiety TIME SPENT: 30 minutes. Vital Signs Vital Signs Date Time Temp Pulse Resp B/P (MAP) Pulse Ox O2 Delivery O2 Flow Rate FiO2 12/27/18 06:30 97.6 87 14 137/72 (93) Laboratory Data 24H Labs Laboratory Tests 2 12/26/18 11:23: Bedside Glucose (Misc Panel) 320H 12/26/18 16:54: Bedside Glucose (Misc Panel) 177H 12/26/18 20:42: Bedside Glucose (Misc Panel) 347H 12/27/18 06:03: Bedside Glucose (Misc Panel) 318H Current Medications Current Medications Acetaminophen (Tylenol Tab) 650 mg Q6HP PRN PO HEADACHE or DISCOMFORT; Start 12/23/18 at 21:45 Al Hydrox/Mg Hydrox/Simethicone (Mylanta) 30 ml Q4HP PRN PO HEARTBURN/INDIGESTION Last administered on 12/24/18at 21:15; Start 12/23/18 at 21:45 Carvedilol (COReg) 12.5 mg BID PO Last administered on 12/26/18at 21:53; Start 12/24/18 at 09:00 Dextrose (Dextrose 50%) 25 ml ASDIRECTED PRN IV SEE LABEL COMMENTS; Start 12/24/18 at 00:15 Divalproex Sodium (Depakote) 750 mg BID PO Last administered on 12/26/18at 21:54; Start 12/24/18 at 09:00 Docusate Sodium (Colace) 100 mg BID PO Last administered on 12/26/18at 21:54; Start 12/24/18 at 09:00 Folic Acid (Folic Acid) 1 mg DAILY PO Last administered on 12/26/18at 08:12; Start 12/25/18 at 09:00 Gabapentin (Neurontin) 600 mg TID PO Last administered on 12/26/18at 21:54; Start 12/24/18 at 09:00 Glucagon (Glucagon) 1 mg ASDIRECTED PRN SC SEE LABEL COMMENTS; Start 12/24/18 at 00:15 Glucose (Glucose) 16 GM ASDIRECTED PRN PO SEE LABEL COMMENTS; Start 12/24/18 at 00:15 Hydroxyzine HCl (Atarax) 50 mg Q6HP PRN PO ANXIETY/AGITATION Last administered on 12/25/18at 10:18; Start 12/25/18 at 10:15 Insulin Detemir (Levemir Insulin) 70 units QHS SC Last administered on 12/24/18at 21:51; Start 12/24/18 at 21:00; Stop 12/25/18 at 12:00; Status DC Insulin Detemir (Levemir Insulin) 74 units QHS SC Last administered on 12/25/18at 21:52; Start 12/25/18 at 21:00; Stop 12/26/18 at 20:41; Status DC Insulin Detemir (Levemir Insulin) 80 units QHS SC Last administered on 12/26/18at 20:52; Start 12/26/18 at 21:00 Insulin Human Lispro (HumaLOG INSULIN) See Protocol Table AC SC Last administered on 12/24/18at 16:41; Start 12/24/18 at 07:30; Stop 12/24/18 at 21:19; Status DC Insulin Human Lispro (HumaLOG INSULIN) See Protocol Table AC SC Last administered on 12/27/18at 06:52; Start 12/25/18 at 07:30 Insulin Human Lispro (HumaLOG INSULIN) See Protocol Table QHS SC ; Start 12/24/18 at 21:00; Stop 12/24/18 at 21:19; Status DC Insulin Human Lispro (HumaLOG INSULIN) See Protocol Table QHS SC Last administered on 12/26/18at 20:51; Start 12/24/18 at 21:00 Lisinopril (Prinivil) 40 mg DAILY PO Last administered on 12/26/18at 08:12; Start 12/24/18 at 09:00 Magnesium Hydroxide (Milk Of Magnesia) 30 ml DAILYPRN PRN PO CONSTIPATION; Start 12/23/18 at 21:45 Magnesium Oxide (Mag-Ox) 400 mg DAILY PO Last administered on 12/26/18at 08:11; Start 12/25/18 at 12:00 Multivitamins (Theragram-M) 1 tab DAILY PO Last administered on 12/26/18at 08:12; Start 12/25/18 at 09:00 Nicotine (Nicorette) 4 mg Q2HP PRN PO NICOTINE WITHDRAWAL Last administered on 12/27/18 07:46; Start 12/23/18 at 21:45 Nifedipine (Procardia Xl) 60 mg DAILY PO Last administered on 12/26/18 08:11; Start 12/24/18 at 09:00 Potassium Phos/ Sodium Phos (Neutra-Phos 1.5gm Packet) 1 pkt QID PO Last administered on 12/26/18 21:54; Start 12/24/18 at 09:00 Prazosin HCl (Minipress) 4 mg QHS PO Last administered on 12/26/18 21:54; Start 12/24/18 at 21:00 Quetiapine Fumarate (SEROquel) 100 mg DAILY PO Last administered on 12/26/18 08:11; Start 12/24/18 at 09:00 Quetiapine Fumarate (SEROquel) 100 mg QHS PO ; Start 12/24/18 at 21:00; Status Cancel Quetiapine Fumarate (SEROquel) 400 mg QHS PO Last administered on 12/26/18 21:52; Start 12/24/18 at 21:00 Sertraline HCl (Zoloft) 150 mg DAILY PO Last administered on 12/26/18 08:11; Start 12/24/18 at 09:00 Thiamine HCl (Thiamine HCl) 100 mg DAILY PO Last administered on 12/26/18 08:12; Start 12/25/18 at 09:00 Trazodone HCl (Desyrel) 50 mg QHSP PRN PO INSOMNIA; Start 12/23/18 at 21:45 Allergies Coded Allergies: No Known Allergies (Unverified , 10/19/18) DYLAN ADAIR DO Dec 27, 2018 9:13 am
--- NOTE | 2018-12-27 14:45 | IPN ---
DATE: 12/25/2018 He is a 48-year-old male who was admitted to the inpatient mental health unit after having been treated for diabetic hyperosmolar non-ketoacidosis. Laboratory study today: Fasting blood sugar was 310. Last night at bedtime it was 389. He continues on Levemir 70 and sliding scale insulin coverage. We are going to increase the Levemir from 70 to 74, continue the coverage, will continue the consistent carbohydrate diet. Discussed with the patient, he verbalized agreement and understanding. He otherwise had no complaints, was feeling much better. OBJECTIVE: Blood pressure 134/70, pulse 70, respirations 14, temperature 97.7. Height 69 inches, weight 98.5 kg, body mass index (BMI) 32.1. The patient is alert and oriented times three. Pupils equal and reactive to light. Extraocular movements intact. Pharynx: Tongue and gums pink and moist. Tongue is midline. Neck is supple without lymphadenopathy. No thyromegaly. No goiter. Carotids are 2+ without bruit. Chest: Clear to auscultation without wheeze or retractions. Heart is regular. Abdomen: Benign. Bowel sounds positive. Genital/Rectal: Not done. Extremities: No cyanosis, clubbing or edema. Skin: Warm and dry. No sores, rashes, or open areas. IMPRESSION AND PLAN: Psychiatric plan per psychiatry. Insulin-dependent diabetes type 2. Increase Levemir to 74 units daily. Continue sliding scale. Re-reviewed consistent carbohydrate diet. Continue fingerstick Accu-Chek before food and nightly. Will continue to follow and adjust insulin as needed. History of hypertension, stable. No other acute medical issues.
[2018-12-27 18:00] VITALS: BP 117/63
[2018-12-27] MEDS: LEVEMIR (INSULIN DETEMIR) 1 UNITS/0.01ML SC SCH (20:57)
--- NOTE | 2018-12-27 20:58 | IPNPDOC ---
Text Note Date of Service The patient was seen on 12/27/18. NOTE Accuchecks reviewed and appear to have improved w uptitration of insulin. We will continue to follow the patient peripherally. VS,Fishbone, I+O VS, Fishbone, I+O Vital Signs Date Time Temp Pulse Resp B/P (MAP) Pulse Ox O2 Delivery O2 Flow Rate FiO2 12/27/18 18:00 98.1 79 18 117/63 (81) BRADY DALEY MD Dec 27, 2018 20:58
[2018-12-27] MEDS: PRAZOSIN 1 MG CAP PO SCH (21:40)
[2018-12-27] MEDS: QUEtiapine FUMARATE 200 MG TAB PO SCH (21:41)
[2018-12-28] MEDS: NICOTINE POLACRILEX 2 MG GUM PO PRN ×9 (03:14→22:20)
[2018-12-28 06:31] VITALS: BP 141/73
[2018-12-28] MEDS: HumaLOG INSULIN (NovoLOG) PER UNIT SC SCH ×4 (07:01→20:08)
[2018-12-28] MEDS: THIAMINE 100 MG TAB PO SCH (08:07)
[2018-12-28] MEDS: QUEtiapine FUMARATE 100 MG TAB PO SCH (08:07)
[2018-12-28] MEDS: FOLIC ACID 1 MG TAB PO SCH (08:07)
[2018-12-28] MEDS: CARVedilol 12.5 MG TAB PO SCH ×2 (08:07→21:46)
[2018-12-28] MEDS: DOCUSATE SODIUM 100 MG CAP PO SCH ×2 (08:07→21:46)
[2018-12-28] MEDS: LISINOPRIL 40 MG TAB PO SCH (08:07)
[2018-12-28] MEDS: NEUTRA-PHOS 1.5 GM PACKET PO SCH ×4 (08:07→21:00)
[2018-12-28] MEDS: MULTIVITAMINS/MINERALS THERAP 1 TAB PO SCH (08:07)
[2018-12-28] MEDS: SERTRALINE HCL 50 MG TAB PO SCH (08:08)
[2018-12-28] MEDS: DIVALPROEX 250 MG TAB PO SCH ×2 (08:08→21:47)
[2018-12-28] MEDS: MAGNESIUM OXIDE 400 MG TAB (MAG-OX) PO SCH (08:08)
[2018-12-28] MEDS: GABAPENTIN 300 MG CAP PO SCH ×3 (08:08→21:46)
[2018-12-28] MEDS: NIFEdipine 30 MG XL TAB PO SCH (08:08)
--- NOTE | 2018-12-28 09:56 | MHIPNPDOC ---
[facility] Progress Note Progress Note DATE OF SERVICE: 12/28/18 HISTORY: Per Dr. Gonzalez admit note: "He is 48 years old. Lives on his own. Has a long history of psychiatric difficulties and psychosis since his early 20s possibly. Carries a diagnosis of schizoaffective disorder bipolar type, as well as posttraumatic stress disorder, polysubstance abuse, generalized anxiety disorder. He has been hospitalized on a couple of occasions in inpatient psychiatry, most recently 10/23/2018, discharged 11/06/2018. Was seen by Dr. Orourke, whose discharge summary is reviewed, and it has details related to the circumstances of that admission, as well as hospital course and background history. I have been asked to see this patient, as he was admitted to the hospital. I have been asked to see him now that he is getting medically stable by the hospitalists. He had come in with diabetic instability. Had not been adherent to treatment recommendations, and diabetes had been out of control. He says over the last couple of weeks his condition has deteriorated. Has been feeling increasingly depressed. Has not been able to attend treatment. Says it is on the outskirts of [facility] and it is an hours distance by walking. Has tended to walk but says his landlord has helped him, as well. He takes him to grocery stores. After discharge, says was unable to followup, as he had his appointments all recorded in his phone. Says lost the phone and, therefore, the appointments. Says was supposed to call them, as well, but did not do so. Says has had difficulties coping, given the distance, lack of transportation. Says began feeling unwell the last few weeks. Condition deteriorated further. [place] dizzy. Was eating but not healthy. Then suggests felt a bit confused, as well, and about a week ago, called the ambulance. When they got there, he decided not to come to the hospital. Says thought would manage but called them again within the last 48 hours and was brought to the hospital. He had been seen by the hospitalists and is in the process of being stabilized medically, mostly the diabetes. Says has been depressed, has been thinking of taking his own life, jumping off a bridge that he has passed on a number of occasions. Also, he hears voices, sees images which are related to his experiences in the aftermath of February 14. He was there and helped with the clearing of the site. Says these images, sounds tended to vary but have increased lately. This is in addition to auditory hallucinations he has had since his early 20s, apparently. He was first diagnosed with psychiatric difficulties in the early . Has had several hospitalizations. The most one was here about 1-1/2 months ago. Does say the sounds and sites that he hears are both related to periods after February 14 and before. Has several stressors. Is away from his family. His father is elderly ill in [facility]. Says the patient's older brother checks on him. He communicates with him daily. Says he lost his mother and sister las t year." VITAL SIGNS: See below. NEW TEST RESULTS: glucose - 189 (improved today) CURRENT MEDICATIONS: See below. MENTAL STATUS EXAMINATION: He is in hospital clothes. He is neat. He is cooperative. There is no agitation. No psychomotor retardation. He is coherent. No formal thought disorder. Affect is full and euthymic. Mood is "alright". He denies suicidal thoughts and no plan. No homicidal ideas or intents. No fluctuation of consciousness. Does not appear internally preoccupied. No delusions at present. Cognition grossly intact. Judgment is fair. Insight fair, as well. DIAGNOSES: Schizoaffective disorder, bipolar type, current episode depressed. cocaine use d/o Posttraumatic stress disorder by history. Generalized anxiety disorder by history. ASSESSMENT:Pt seen and states he feel's "alright" today, no longer irritable and depressed with lack of cocaine use and improving cocaine withdrawal. He appears euthymic and full range with staff and peers. He is no longer med seeking. Endorsing insomnia and agreeable to increase in seroquel qhs to help. He is [facility] rehabs ([facility]) to facilitate being accepted for substance abuse treatment. He has a history of malingering for narcotics and housing in the past on the unit multiple times. Slept well last night. He is tolerating his medications and they're beneficial. He is attending groups and finding them helpful. He denies SI/HI, hallucinations, delusions. Pt feels safe here. MANAGEMENT PLAN: continue plan. refer inpatient rehab. increase seroquel qhs Depakote 750 mg BID Gabapentin 600 mg TID Prazosin 4 mg QHS seroquel 100 mg DAILY seroquel 450 mg QHS Zoloft 150 mg DAILY Trazodone 50 mg QHSP PRN PO INSOMNIA atarax 50mg q6hr prn anxiety TIME SPENT: 30 minutes. Vital Signs Vital Signs Date Time Temp Pulse Resp B/P (MAP) Pulse Ox O2 Delivery O2 Flow Rate FiO2 12/28/18 08:07 80 144/59 12/28/18 06:31 97.5 16 Laboratory Data 24H Labs Laboratory Tests 2 12/27/18 12:03: Bedside Glucose (Misc Panel) 189H 12/27/18 16:52: Bedside Glucose (Misc Panel) 254H 12/27/18 20:27: Bedside Glucose (Misc Panel) 197H 12/28/18 06:09: Bedside Glucose (Misc Panel) 335H Current Medications Current Medications Acetaminophen (Tylenol Tab) 650 mg Q6HP PRN PO HEADACHE or DISCOMFORT; Start 12/23/18 at 21:45 Al Hydrox/Mg Hydrox/Simethicone (Mylanta) 30 ml Q4HP PRN PO HEARTBURN/IN DIGESTION Last administered on 12/24/18at 21:15; Start 12/23/18 at 21:45 Carvedilol (COReg) 12.5 mg BID PO Last administered on 12/28/18at 08:07; Start 12/24/18 at 09:00 Dextrose (Dextrose 50%) 25 ml ASDIRECTED PRN IV SEE LABEL COMMENTS; Start 12/24/18 at 00:15 Divalproex Sodium (Depakote) 750 mg BID PO Last administered on 12/28/18at 08:08; Start 12/24/18 at 09:00 Docusate Sodium (Colace) 100 mg BID PO Last administered on 12/28/18at 08:07; Start 12/24/18 at 09:00 Folic Acid (Folic Acid) 1 mg DAILY PO Last administered on 12/28/18 08:07; Start 12/25/18 at 09:00 Gabapentin (Neurontin) 600 mg TID PO Last administered on 12/28/18 08:08; Start 12/24/18 at 09:00 Glucagon (Glucagon) 1 mg ASDIRECTED PRN SC SEE LABEL COMMENTS; Start 12/24/18 at 00:15 Glucose (Glucose) 16 GM ASDIRECTED PRN PO SEE LABEL COMMENTS; Start 12/24/18 at 00:15 Hydroxyzine HCl (Atarax) 50 mg Q6HP PRN PO ANXIETY/AGITATION Last administered on 12/25/18at 10:18; Start 12/25/18 at 10:15 Insulin Detemir (Levemir Insulin) 70 units QHS SC Last administered on 12/24/18at 21:51; Start 12/24/18 at 21:00; Stop 12/25/18 at 12:00; Status DC Insulin Detemir (Levemir Insulin) 74 units QHS SC Last administered on 12/25/18at 21:52; Start 12/25/18 at 21:00; Stop 12/26/18 at 20:41; Status DC Insulin Detemir (Levemir Insulin) 80 units QHS SC Last administered on 12/27/18at 20:57; Start 12/26/18 at 21:00 Insulin Human Lispro (HumaLOG INSULIN) See Protocol Table AC SC Last administered on 12/24/18at 16:41; Start 12/24/18 at 07:30; Stop 12/24/18 at 21:19; Status DC Insulin Human Lispro (HumaLOG INSULIN) See Protocol Table AC SC Last administered on 12/28/18at 07:01; Start 12/25/18 at 07:30 Insulin Human Lispro (HumaLOG INSULIN) See Protocol Table QHS SC ; Start 12/24/18 at 21:00; Stop 12/24/18 at 21:19; Status DC Insulin Human Lispro (HumaLOG INSULIN) See Protocol Table QHS SC Last administered on 12/26/18at 20:51; Start 12/24/18 at 21:00 Lisinopril (Prinivil) 40 mg DAILY PO Last administered on 12/28/18at 08:07; Start 12/24/18 at 09:00 Magnesium Hydroxide (Milk Of Magnesia) 30 ml DAILYPRN PRN PO CONSTIPATION; Start 12/23/18 at 21:45 Magnesium Oxide (Mag-Ox) 400 mg DAILY PO Last administered on 12/28/18at 08:08; Start 12/25/18 at 12:00 Multivitamins (Theragram-M) 1 tab DAILY PO Last administered on 12/28/18at 08:07; Start 12/25/18 at 09:00 Nicotine (Nicorette) 4 mg Q2HP PRN PO NICOTINE WITHDRAWAL Last administered on 12/28/18 08:12; Start 12/23/18 at 21:45 Nifedipine (Procardia Xl) 60 mg DAILY PO Last administered on 12/28/18 08:08; Start 12/24/18 at 09:00 Potassium Phos/ Sodium Phos (Neutra-Phos 1.5gm Packet) 1 pkt QID PO Last administered on 12/28/18 08:07; Start 12/24/18 at 09:00 Prazosin HCl (Minipress) 4 mg QHS PO Last administered on 12/27/18 21:40; Start 12/24/18 at 21:00 Quetiapine Fumarate (SEROquel) 100 mg DAILY PO Last administered on 12/28/18 08:07; Start 12/24/18 at 09:00 Quetiapine Fumarate (SEROquel) 100 mg QHS PO ; Start 12/24/18 at 21:00; Status Cancel Quetiapine Fumarate (SEROquel) 400 mg QHS PO Last administered on 12/27/18 21:41; Start 12/24/18 at 21:00 Sertraline HCl (Zoloft) 150 mg DAILY PO Last administered on 12/28/18 08:08; Start 12/24/18 at 09:00 Thiamine HCl (Thiamine HCl) 100 mg DAILY PO Last administered on 12/28/18 08:07; Start 12/25/18 at 09:00 Trazodone HCl (Desyrel) 50 mg QHSP PRN PO INSOMNIA; Start 12/23/18 at 21:45 Allergies Coded Allergies: No Known Allergies (Unverified , 10/19/18) DYLAN ADAIR DO Dec 28, 2018 9:29 am
[2018-12-28 18:00] VITALS: BP 146/67
[2018-12-28] MEDS: hydrOXYzine 50 MG TAB PO PRN (18:37)
[2018-12-28] MEDS: LEVEMIR (INSULIN DETEMIR) 1 UNITS/0.01ML SC SCH (20:08)
[2018-12-28] MEDS: QUEtiapine FUMARATE 50 MG TAB PO SCH (21:46)
[2018-12-28] MEDS: QUEtiapine FUMARATE 200 MG TAB PO SCH (21:46)
[2018-12-28] MEDS: PRAZOSIN 1 MG CAP PO SCH (21:46)
[2018-12-28] MEDS: MAALOX 30 ML SUSP *UDC PO PRN (22:19)
[2018-12-29] MEDS: NICOTINE POLACRILEX 2 MG GUM PO PRN ×9 (03:03→22:19)
[2018-12-29 06:40] VITALS: BP 159/74
[2018-12-29] MEDS: HumaLOG INSULIN (NovoLOG) PER UNIT SC SCH ×4 (06:57→21:00)
[2018-12-29] MEDS: SERTRALINE HCL 50 MG TAB PO SCH (08:11)
[2018-12-29] MEDS: MULTIVITAMINS/MINERALS THERAP 1 TAB PO SCH (08:12)
[2018-12-29] MEDS: LISINOPRIL 40 MG TAB PO SCH (08:12)
[2018-12-29] MEDS: MAGNESIUM OXIDE 400 MG TAB (MAG-OX) PO SCH (08:12)
[2018-12-29] MEDS: DOCUSATE SODIUM 100 MG CAP PO SCH ×2 (08:12→21:27)
[2018-12-29] MEDS: CARVedilol 12.5 MG TAB PO SCH ×2 (08:12→21:29)
[2018-12-29] MEDS: NIFEdipine 30 MG XL TAB PO SCH (08:12)
[2018-12-29] MEDS: DIVALPROEX 250 MG TAB PO SCH ×2 (08:12→21:30)
[2018-12-29] MEDS: QUEtiapine FUMARATE 100 MG TAB PO SCH (08:13)
[2018-12-29] MEDS: THIAMINE 100 MG TAB PO SCH (08:13)
[2018-12-29] MEDS: FOLIC ACID 1 MG TAB PO SCH (08:13)
[2018-12-29] MEDS: GABAPENTIN 300 MG CAP PO SCH ×3 (08:13→21:30)
[2018-12-29] MEDS: NEUTRA-PHOS 1.5 GM PACKET PO SCH ×4 (08:13→21:30)
--- NOTE | 2018-12-29 08:54 | MHIPNPDOC ---
[facility] Progress Note Progress Note DATE OF SERVICE: 12/29/18 HISTORY: Per Dr. Gonzalez admit note: "He is 48 years old. Lives on his own. Has a long history of psychiatric difficulties and psychosis since his early 20s possibly. Carries a diagnosis of schizoaffective disorder bipolar type, as well as posttraumatic stress disorder, polysubstance abuse, generalized anxiety disorder. He has been hospitalized on a couple of occasions in inpatient psychiatry, most recently 10/23/2018, discharged 11/06/2018. Was seen by Dr. Orourke, whose discharge summary is reviewed, and it has details related to the circumstances of that admission, as well as hospital course and background history. I have been asked to see this patient, as he was admitted to the hospital. I have been asked to see him now that he is getting medically stable by the hospitalists. He had come in with diabetic instability. Had not been adherent to treatment recommendations, and diabetes had been out of control. He says over the last couple of weeks his condition has deteriorated. Has been feeling increasingly depressed. Has not been able to attend treatment. Says it is on the outskirts of [facility] and it is an hours distance by walking. Has tended to walk but says his landlord has helped him, as well. He takes him to grocery stores. After discharge, says was unable to followup, as he had his appointments all recorded in his phone. Says lost the phone and, therefore, the appointments. Says was supposed to call them, as well, but did not do so. Says has had difficulties coping, given the distance, lack of transportation. Says began feeling unwell the last few weeks. Condition deteriorated further. Velva dizzy. Was eating but not healthy. Then suggests felt a bit confused, as well, and about a week ago, called the ambulance. When they got there, he decided not to come to the hospital. Says thought would manage but called them again within the last 48 hours and was brought to the hospital. He had been seen by the hospitalists and is in the process of being stabilized medically, mostly the diabetes. Says has been depressed, has been thinking of taking his own life, jumping off a bridge that he has passed on a number of occasions. Also, he hears voices, sees images which are related to his experiences in the aftermath of February 14. He was there and helped with the clearing of the site. Says these images, sounds tended to vary but have increased lately. This is in addition to auditory hallucinations he has had since his early 20s, apparently. He was first diagnosed with psychiatric difficulties in the early . Has had several hospitalizations. The most one was here about 1-1/2 months ago. Does say the sounds and sites that he hears are both related to periods after February 14 and before. Has several stressors. Is away from his family. His father is elderly ill in [facility]. Says the patient's older brother checks on him. He communicates with him daily. Says he lost his mother and sister las t year." VITAL SIGNS: See below. NEW TEST RESULTS: glucose - 189 (improved today) CURRENT MEDICATIONS: See below. MENTAL STATUS EXAMINATION: He is in hospital clothes. He is neat. He is cooperative. There is no agitation. No psychomotor retardation. He is coherent. No formal thought disorder. Affect is full and euthymic. Mood is "alright". He denies suicidal thoughts and no plan. No homicidal ideas or intents. No fluctuation of consciousness. Does not appear internally preoccupied. No delusions at present. Cognition grossly intact. Judgment is fair. Insight fair, as well. DIAGNOSES: Schizoaffective disorder, bipolar type, current episode depressed. cocaine use d/o Posttraumatic stress disorder by history. Generalized anxiety disorder by history. ASSESSMENT:Pt seen and and angry that he can't have decker as he's on a carbohydrate consistent diet for his diabetes. He did get decker the other day for breakfast and now has bilateral 1+edema of his legs asking to see the medical doctor. Agreeable to nutrition consult for glucern shakes to aid him with hunger as agree with pt that one slice of nigerien toast is not enough to satisfy a man of his size. Otherwise states he feel's "alright" today, no longer irritable and depressed with lack of cocaine use and improving cocaine withdrawal. He appears euthymic and full range with staff and peers. He is no longer med seeking. Endorsing insomnia and agreeable to increase in seroquel qhs to help. [facility] facilitate being accepted for substance abuse treatment. He has a history of malingering for narcotics and housing in the past on the unit multiple times. Slept well last night. He is tolerating his medications and they're beneficial. He is attending groups and finding them helpful. He denies SI/HI, hallucinations, delusions. Pt feels s afe here. MANAGEMENT PLAN: continue plan. refer inpatient rehab. increase seroquel qhs Depakote 750 mg BID Gabapentin 600 mg TID Prazosin 4 mg QHS seroquel 100 mg DAILY seroquel 450 mg QHS Zoloft 150 mg DAILY Trazodone 50 mg QHSP PRN PO INSOMNIA atarax 50mg q6hr prn anxiety TIME SPENT: 30 minutes. Vital Signs Vital Signs Date Time Temp Pulse Resp B/P (MAP) Pulse Ox O2 Delivery O2 Flow Rate FiO2 12/29/18 08:12 141/61 12/29/18 06:40 98.5 74 18 Laboratory Data 24H Labs Laboratory Tests 2 12/28/18 11:12: Bedside Glucose (Misc Panel) 257H 12/28/18 16:49: Bedside Glucose (Misc Panel) 297H 12/28/18 20:04: Bedside Glucose (Misc Panel) 423H 12/29/18 06:09: Bedside Glucose (Misc Panel) 276H Current Medications Current Medications Medications (Trade) Dose Ordered Sig/Tee Route PRN Reason Start Time Stop Time Status Last Admin Dose Admin Acetaminophen (Tylenol Tab) 650 mg Q6HP PRN PO HEADACHE or DISCOMFORT 12/23/18 21:45 Al Hydrox/Mg Hydrox/Simethicone (Mylanta) 30 ml Q4HP PRN PO HEARTBURN/INDIGESTION 12/23/18 21:45 12/28/18 22:19 Carvedilol (COReg) 12.5 mg BID PO 12/24/18 09:00 12/29/18 08:12 Dextrose (Dextrose 50%) 25 ml ASDIRECTED PRN IV SEE LABEL COMMENTS 12/24/18 00:15 Divalproex Sodium (Depakote) 750 mg BID PO 12/24/18 09:00 12/29/18 08:12 Docusate Sodium (Colace) 100 mg BID PO 12/24/18 09:00 12/29/18 08:12 Folic Acid (Folic Acid) 1 mg DAILY PO 12/25/18 09:00 12/29/18 08:13 Gabapentin (Neurontin) 600 mg TID PO 12/24/18 09:00 12/29/18 08:13 Glucagon (Glucagon) 1 mg ASDIRECTED PRN SC SEE LABEL COMMENTS 12/24/18 00:15 Glucose (Glucose) 16 GM ASDIRECTED PRN PO SEE LABEL COMMENTS 12/24/18 00:15 Hydroxyzine HCl (Atarax) 50 mg Q6HP PRN PO ANXIETY/AGITATION 12/25/18 10:15 12/28/18 18:37 Insulin Detemir (Levemir Insulin) 70 units QHS AZ 12/24/18 21:00 12/25/18 12:00 DC 12/24/18 21:51 Insulin Detemir (Levemir Insulin) 74 units QHS AZ 12/25/18 21:00 12/26/18 20:41 DC 12/25/18 21:52 Insulin Detemir (Levemir Insulin) 80 units QHS AZ 12/26/18 21:00 12/28/18 20:08 Insulin Human Lispro (HumaLOG INSULIN) See Protocol Table AC [place] 12/24/18 07:30 12/24/18 21:19 DC 12/24/18 16:41 Insulin Human Lispro (HumaLOG INSULIN) See Protocol Table AC [place] 12/25/18 07:30 12/29/18 06:57 Insulin Human Lispro (HumaLOG INSULIN) See [facility] 12/24/18 21:00 12/24/18 21:19 DC Insulin Human Lispro (HumaLOG INSULIN) See [facility] 12/24/18 21:00 12/28/18 20:08 Lisinopril (Prinivil) 40 mg DAILY PO 12/24/18 09:00 12/29/18 08:12 Magnesium Hydroxide (Milk Of Magnesia) 30 ml DAILYPRN PRN PO CONSTIPATION 12/23/18 21:45 Magnesium Oxide (Mag-Ox) 400 mg DAILY PO 12/25/18 12:00 12/29/18 08:12 Multivitamins (Theragram-M) 1 tab DAILY PO 12/25/18 09:00 12/29/18 08:12 Nicotine (Nicorette) 4 mg Q2HP PRN PO NICOTINE WITHDRAWAL 12/23/18 21:45 12/29/18 08:13 Nifedipine (Procardia Xl) 60 mg DAILY PO 12/24/18 09:00 12/29/18 08:12 Potassium Phos/ Sodium Phos (Neutra-Phos 1.5gm Packet) 1 pkt QID PO 12/24/18 09:00 12/29/18 08:13 Prazosin HCl (Minipress) 4 mg QHS PO 12/24/18 21:00 12/28/18 21:46 Quetiapine Fumarate (SEROquel) 50 mg QHS PO 12/28/18 21:00 12/28/18 21:46 Quetiapine Fumarate (SEROquel) 100 mg DAILY PO 12/24/18 09:00 12/29/18 08:13 Quetiapine Fumarate (SEROquel) 100 mg QHS PO 12/24/18 21:00 Cancel Quetiapine Fumarate (SEROquel) 400 mg QHS PO 12/24/18 21:00 12/28/18 21:46 Sertraline HCl (Zoloft) 150 mg DAILY PO 12/24/18 09:00 12/29/18 08:11 Thiamine HCl (Thiamine HCl) 100 mg DAILY PO 12/25/18 09:00 12/29/18 08:13 Trazodone HCl (Desyrel) 50 mg QHSP PRN PO INSOMNIA 12/23/18 21:45 Allergies Coded Allergies: No Known Allergies (Unverified , 10/19/18) DYLAN ADAIR DO Dec 29, 2018 8:31 am
[2018-12-29 17:29] VITALS: BP 139/75
[2018-12-29] MEDS: LEVEMIR (INSULIN DETEMIR) 1 UNITS/0.01ML SC SCH (20:17)
[2018-12-29] MEDS: QUEtiapine FUMARATE 50 MG TAB PO SCH (21:30)
[2018-12-29] MEDS: PRAZOSIN 1 MG CAP PO SCH (21:30)
[2018-12-29] MEDS: QUEtiapine FUMARATE 200 MG TAB PO SCH (21:31)
--- NOTE | 2018-12-29 21:32 | IPNPDOC ---
Subjective Date Seen The patient was seen on 12/29/18. Time of service 9:20 PM Subjective Chief Complaint/HPI edema Events since last encounter The patient complains of 3 day duration, gradually worsening bilateral lower extremity edema along with scrotal swelling and abdominal swelling. He denies having any shortness of breath. He does endorse changes to his medications over the last 3 days. Objective Physical Examination Extremity Exam: Positive: Other (normal gait) Other physical findings PHYSICAL EXAM Vital signs temperature 97.8, pulse 92, respiratory rate 16, blood pressure 139/75. GENERAL: No apparent distress, appears stated age, HEENT: Wearing glasses, extraocular movements intact, mucous membranes moist and pink. CHEST: Regular Rate and Rhythm. No Murmurs, Rubs or Gallops. LUNGS: Clear to Auscultation Bilaterally on Room Air. No Dyspnea with Walking ABDOMEN: Distended and firm, nontender palpation. EXTREMITIES: Tense bilateral lower extremity edema from the feet extending all the way to the abdomen. NEURO: CN II to 12 grossly intact. Speech is not dysarthric. PSYCH alert and oriented to person, place and time, able to understand and follow commands Assessment /Plan Assessment Mr. Thornton is a 48-year-old male with a past medical history of diabetes and hypertension who was admitted to the inpatient psych unit. We have been consulted to comanage his diabetes. 1. Anasarca. Cause to be determined. Suspect that this may be a reaction to his medications because it occurred suddenly. The differential also includes CHF, which is less likely because he is not short of breath, liver failure, or kidney failure. It is less likely due to a mass in the abdomen. Plan: Discontinue nifedipine, we'll follow up CBC, CMP, echocardiogram, if the workup is unrevealing , we'll also talk to his primary team/psychiatry about tapering down gabapentin as this can also cause bilateral edema 2. Diabetes. Accu-Cheks continued to show suboptimal control Plan: Continue with the current doses of increased detemir from 80-85 units daily at bedtime and continue with the current dose of lispro 3. Hypertension. Plan: Continue with current medications, except for discontinue Procardia and increase Coreg from 12.5 twice a day to 25 twice a day. We will continue to follow up on his blood pressure Rest of the management for psychiatric conditions per primary team Thank you for consulting us. We will continue to follow the patient with yo u. Plan/VTE VTE Prophylaxis Ordered?: No VTE Exclusion Mechanical Proph: Low Risk for VTE VS, I&O, 24H, Fishbone Vital Signs/I&O Vital Signs Date Time Temp Pulse Resp B/P (MAP) Pulse Ox O2 Delivery O2 Flow Rate FiO2 12/29/18 17:29 97.8 72 16 139/75 (96) Laboratory Data 24H LABS Laboratory Tests 2 12/29/18 06:09: Bedside Glucose (Misc Panel) 276H 12/29/18 11:39: Bedside Glucose (Misc Panel) 357H 12/29/18 16:59: Bedside Glucose (Misc Panel) 314H 12/29/18 20:11: Bedside Glucose (Misc Panel) 219H BRADY DALEY MD Dec 29, 2018 21:32
[2018-12-29] MEDS ORDERED: FUROSEMIDE 20 MG TAB PO ONE (22:00)
[2018-12-29 22:12] LABS: BASO % 0.4 % (0.0-1.0); EOS # 0.2 10^3/uL (0.0-0.50); HEMATOCRIT 32.1 % (42.0-52.0); HEMOGLOBIN 10.5 g/dl (13.5-17.5); LYMPH # 3.3 10^3/uL (1.5-4.5); LYMPH % 44.2 % (24.0-44.0); MEAN CORPUSCULAR HEMOGLOBIN 27.3 pg (27.0-33.0); MEAN CORPUSCULAR HGB CONC 32.7 g/dl (32.0-36.5); MEAN CORPUSCULAR VOLUME 83.4 fl (80.0-96.0); MONO # 0.8 10^3/uL (0.0-0.8); MONO % 10.9 % (0.0-5.0); NEUTROPHILS # 3.1 10^3/uL (1.8-7.7); NEUTROPHILS % 41.2 % (36.0-66.0); PLATELET COUNT, AUTOMATED 239 10^3/uL (150-450); RED BLOOD COUNT 3.85 10^6/uL (4.30-6.10); WHITE BLOOD COUNT 7.5 10^3/uL (4.0-10.0)
[2018-12-29 22:32] LABS: BLOOD UREA NITROGEN 15 MG/DL (7-18); CALCIUM LEVEL 8.1 MG/DL (8.5-10.1); CARBON DIOXIDE LEVEL 31 MEQ/L (21-32); CHLORIDE LEVEL 104 MEQ/L (98-107); CREATININE FOR GFR 1.38 MG/DL (0.70-1.30); GLOMERULAR FILTRATION RATE > 60.0 (>60); GLUCOSE, FASTING 183 MG/DL (70-100); POTASSIUM SERUM 4.1 MEQ/L (3.5-5.1); SODIUM LEVEL 139 MEQ/L (136-145)
[2018-12-30] MEDS: NICOTINE POLACRILEX 2 MG GUM PO PRN ×9 (01:10→22:43)
[2018-12-30] MEDS: ACETAMINOPHEN TAB 650MG DOSE (2X325MG) PO PRN ×2 (06:24→18:41)
[2018-12-30 06:25] VITALS: BP 152/66
[2018-12-30] MEDS: HumaLOG INSULIN (NovoLOG) PER UNIT SC SCH ×7 (06:56→20:50)
[2018-12-30] MEDS: NEUTRA-PHOS 1.5 GM PACKET PO SCH ×4 (08:25→20:40)
[2018-12-30] MEDS: DIVALPROEX 250 MG TAB PO SCH ×2 (08:25→20:45)
[2018-12-30] MEDS: QUEtiapine FUMARATE 100 MG TAB PO SCH (08:25)
[2018-12-30] MEDS: LISINOPRIL 40 MG TAB PO SCH (08:26)
[2018-12-30] MEDS: MULTIVITAMINS/MINERALS THERAP 1 TAB PO SCH (08:26)
[2018-12-30] MEDS: THIAMINE 100 MG TAB PO SCH (08:26)
[2018-12-30] MEDS: GABAPENTIN 300 MG CAP PO SCH ×3 (08:26→20:43)
[2018-12-30] MEDS: SERTRALINE HCL 50 MG TAB PO SCH (08:26)
[2018-12-30] MEDS: DOCUSATE SODIUM 100 MG CAP PO SCH ×2 (08:27→20:40)
[2018-12-30] MEDS: CARVedilol 12.5 MG TAB PO SCH ×2 (08:29→20:44)
[2018-12-30] MEDS: FOLIC ACID 1 MG TAB PO SCH (08:29)
[2018-12-30] MEDS: MAGNESIUM OXIDE 400 MG TAB (MAG-OX) PO SCH (09:00)
[2018-12-30 10:33] LABS: ALBUMIN 1.4 GM/DL (3.2-5.2); ALT/SGPT 187 U/L (12-78); BILIRUBIN,TOTAL < 0.1 MG/DL (0.2-1.0); BLOOD UREA NITROGEN 11 MG/DL (7-18); CALCIUM LEVEL 7.7 MG/DL (8.5-10.1); CARBON DIOXIDE LEVEL 30 MEQ/L (21-32); CHLORIDE LEVEL 106 MEQ/L (98-107); CREATININE FOR GFR 1.59 MG/DL (0.70-1.30); GLUCOSE, FASTING 307 MG/DL (70-100); NT-PRO BNP 621 PG/ML (<125); POTASSIUM SERUM 3.9 MEQ/L (3.5-5.1); SODIUM LEVEL 140 MEQ/L (136-145); TOTAL PROTEIN 5.5 GM/DL (6.4-8.2)
--- NOTE | 2018-12-30 14:32 | ECHO ---
DATE OF PROCEDURE: 12/30/2018 REFERRING PHYSICIAN: Dr. Delphine Lewis INDICATION: Edema. Height 175 cm, weight 99 kg. DIMENSIONS: IVS: 1.3 LV: 4.8 LVPW: 1.2 LA: 3.8 Aorta: 3.2 IVC: 1.8 Mitral E wave velocity: 99 A wave: 81 E prime septal: 7.4 E prime lateral: 8.9 FINDINGS: The study is of good technical quality considering patient's body habitus. Left ventricle is of normal size and systolic function with estimated left ventricular ejection fraction (LVEF) around 60-65%. Mild left ventricular hypertrophy is present. Right ventricle is of normal size and systolic function. Both atria appear normal. All four cardiac valves were reasonably well seen and appear normal. No pericardial effusion is noted. Inferior vena cava is normal size. Aortic root, aortic arch and visualized segment of abdominal aorta appear normal. Doppler interrogation reveals no aortic stenosis or insufficiency. Same applies for mitral valve. There is trace tricuspid insufficiency. Calculated pulmonary artery pressure is on upper limits of normal values or possibly mildly elevated. Trace pulmonic insufficiency is also seen. Mitral inflow pattern and tissue Doppler imaging of mitral annulus revealed probably normal diastolic function even though tissue Doppler velocities of mitral annulus are mildly reduced. CONCLUSIONS; 1. Study is of acceptable technical quality. 2. Normal left ventricular (LV) size with mild left ventricular hypertrophy (LVH) and preserved LV systolic function. Probably normal diastolic function. 3. No significant valvular disease. 4. Normal central venous pressure and normal or mildly elevated pulmonary artery pressure. COMMENT: Subacute bacterial endocarditis (SBE) prophylaxis is not recommended. The study is overall consistent with mild hypertensive heart disease. [facility]
[2018-12-30] MEDS: FUROSEMIDE 80 MG TAB PO SCH (17:30)
[2018-12-30] MEDS: POTASSIUM CHLORIDE 10 MEQ SR TABLET PO SCH (17:30)
[2018-12-30 18:00] VITALS: BP 162/77
[2018-12-30] MEDS: QUEtiapine FUMARATE 50 MG TAB PO SCH (20:43)
[2018-12-30] MEDS: QUEtiapine FUMARATE 200 MG TAB PO SCH (20:43)
[2018-12-30] MEDS ORDERED: traZODone 50 MG TAB PO PRN (20:45)
[2018-12-30] MEDS ORDERED: MOM 30ML SUSPENSION UDC PO PRN (20:45)
[2018-12-30] MEDS ORDERED: MAALOX 30 ML SUSP *UDC PO PRN (20:45)
[2018-12-30] MEDS: PRAZOSIN 1 MG CAP PO SCH (20:45)
[2018-12-30] MEDS: IBUPROFEN 600 MG TAB PO PRN (20:46)
[2018-12-30] MEDS ORDERED: LEVEMIR (INSULIN DETEMIR) 1 UNITS/0.01ML SC SCH (21:00)
[2018-12-30] MEDS ORDERED: HumaLOG INSULIN (NovoLOG) PER UNIT SC SCH (21:00)
--- NOTE | 2018-12-30 21:24 | IPN ---
DATE: 12/30/2018 He is a patient of the inpatient mental health unit. He has a history of insulin-dependent diabetes, type 2, hypertension, renal disease, who over the last 2 days has had increasing edema, pedal, ankle, scrotal. He was given 20 mg of Lasix with no significant change. He has no complaints of shortness of breath. LABORATORY STUDIES: Done today show electrolytes are normal. BUN is 11, creatinine is 1.59. AST is elevated at 167, ALT elevated at 187. BNP was done; it is 621. Fingerstick blood sugars have been running in the 200s. Short-acting was added 5 units before meals and Levemir has been increased to 85. Will expect improvement in the blood sugars. Echocardiogram has been ordered, results are pending. Will order 80 mg of Lasix by mouth, 20 mg of KCl. Monitor his intake and output. Will get daily weights. Followup on the echocardiogram. He has no complaints of chest pain, palpitations, shortness of breath. OBJECTIVE: Blood pressure 152/66, pulse 70, respirations 18, temperature 98, oxygen saturation 96% on room air. The patient is alert and oriented times three. Pharynx: Tongue and gums pink and moist. Tongue is midline. Neck is supple without lymphadenopathy. No thyromegaly. No goiter. Jugular venous pressure is at clavicle to 2 at 60 degrees. Chest has decreased breath sounds. No wheeze or retraction. Heart is regular. Abdomen is slightly distended, nontender. No masses, pulsations or bruits. No organomegaly. Bowel sounds are positive. Genital/Rectal: Not done. Scrotum is enlarged, edematous. Extremities show bilateral pedal, ankle, pretibial extending to the abdomen 2+ to 3+. Peripheral pulses equal and palpable bilaterally. Skin is warm and dry. IMPRESSION: As per Dr. Lewis noted yesterday, anasarca. Cause to be determined. Today echocardiogram is being done. BNP was elevated. Will give 80 of Lasix by mouth, 20 of KCl. Will monitor intake and output, daily weights. Diabetes. Accu-Cheks slightly improved in the 200s. Levemir is at 85 for tonight. Continue short-acting 5 units before meals. Hypertension. Coreg was increased to 25 mg twice a day. Procardia was discontinued as may have contributed to the edema. Will repeat CMP in the morning. Laboratory studies as above. Recheck in morning.
[2018-12-31] MEDS: NICOTINE POLACRILEX 2 MG GUM PO PRN ×6 (01:44→17:22)
[2018-12-31] MEDS: HumaLOG INSULIN (NovoLOG) PER UNIT SC SCH ×6 (06:37→17:16)
[2018-12-31 06:39] VITALS: BP 148/72
[2018-12-31] MEDS: IBUPROFEN 600 MG TAB PO PRN (07:02)
[2018-12-31 07:48] LABS: ALBUMIN 1.6 GM/DL (3.2-5.2); BILIRUBIN,TOTAL 0.1 MG/DL (0.2-1.0); CALCIUM LEVEL 8.2 MG/DL (8.5-10.1); CREATININE FOR GFR 1.68 MG/DL (0.70-1.30); GLOMERULAR FILTRATION RATE 56.3 (>60); POTASSIUM SERUM 4.2 MEQ/L (3.5-5.1); TOTAL PROTEIN 5.7 GM/DL (6.4-8.2)
[2018-12-31] MEDS: NEUTRA-PHOS 1.5 GM PACKET PO SCH ×3 (08:28→17:00)
[2018-12-31] MEDS: DOCUSATE SODIUM 100 MG CAP PO SCH (08:29)
[2018-12-31] MEDS: hydrOXYzine 50 MG TAB PO PRN (08:30)
[2018-12-31] MEDS: DIVALPROEX 250 MG TAB PO SCH (08:30)
[2018-12-31] MEDS: GABAPENTIN 300 MG CAP PO SCH ×2 (08:30→15:12)
[2018-12-31] MEDS: LISINOPRIL 40 MG TAB PO SCH (08:30)
[2018-12-31] MEDS: FUROSEMIDE 80 MG TAB PO SCH (08:30)
[2018-12-31 08:31] VITALS: BP 148/72
[2018-12-31] MEDS: POTASSIUM CHLORIDE 10 MEQ SR TABLET PO SCH (08:31)
[2018-12-31] MEDS: CARVedilol 12.5 MG TAB PO SCH (08:31)
[2018-12-31] MEDS: QUEtiapine FUMARATE 100 MG TAB PO SCH (08:31)
[2018-12-31] MEDS: MAGNESIUM OXIDE 400 MG TAB (MAG-OX) PO SCH (08:32)
[2018-12-31] MEDS: MULTIVITAMINS/MINERALS THERAP 1 TAB PO SCH (08:32)
[2018-12-31] MEDS: THIAMINE 100 MG TAB PO SCH (08:32)
[2018-12-31] MEDS: FOLIC ACID 1 MG TAB PO SCH (08:32)
[2018-12-31] MEDS: SERTRALINE HCL 50 MG TAB PO SCH (08:32)
[2018-12-31] MEDS ORDERED: FUROSEMIDE 80 MG TAB PO SCH (09:00)
[2018-12-31 16:08] LABS: INR 1.02; PROTHROMBIN TIME 13.1 SECONDS (11.8-14.0)
[2018-12-31] MEDS ORDERED: DEPA250T32 PO (16:36)
[2018-12-31] MEDS ORDERED: COLA100C5 PO (16:36)
[2018-12-31] MEDS ORDERED: CARV12.5 PO (16:36)
[2018-12-31] MEDS ORDERED: GABA-843 PO (16:37)
[2018-12-31] MEDS ORDERED: HYDR1TAB33 PO (16:37)
[2018-12-31] MEDS ORDERED: QUET5TAB PO (16:37)
[2018-12-31] MEDS ORDERED: TRAZ-252 PO (16:37)
[2018-12-31] MEDS ORDERED: SERT-155 PO (16:37)
[2018-12-31] MEDS ORDERED: FURO80TA2 PO (16:37)
[2018-12-31] MEDS ORDERED: MINI1CAP PO (16:37)
[2018-12-31] MEDS ORDERED: LISI40TA PO (16:37)
[2018-12-31] MEDS ORDERED: KLOR10TA76 PO (16:37)
[2018-12-31] MEDS ORDERED: NICO2GUM PO (16:37)
[2018-12-31] MEDS ORDERED: QUET1TAB8 PO (16:37)
[2018-12-31] MEDS ORDERED: FOLI1TAB11 PO (16:37)
[2018-12-31] MEDS ORDERED: IBUP-1022 PO (16:37)
[2018-12-31] MEDS ORDERED: QUET200T2 PO (16:37)
[2018-12-31] MEDS ORDERED: MAG400TA PO (16:37)
[2018-12-31] MEDS ORDERED: THIA100TA PO (16:37)
[2018-12-31] MEDS ORDERED: VITMTA PO (16:37)
[2018-12-31] MEDS ORDERED: INSUDET SC (17:27)
--- NOTE | 2019-01-01 07:52 | REP ---
Abdominal right upper quadrant ultrasound for elevated liver enzymes: Laurent cobb is the complete abdominal ultrasound dated 11/06/2018. The the patient reportedly has an P and n.p.o. since 12:00 a.m. Nevertheless the gallbladder is contracted. No gallbladder calculi are identified. The gallbladder wall thickness measures 3 mm. This is mildly thickened, likely secondary to gallbladder contraction. There is no pericholecystic fluid. There is no intrahepatic or extrahepatic biliary duct dilatation, the common biliary duct measures 3 mm in diameter. The hepatic parenchyma is homogeneous and otherwise unremarkable. Pancreas: There are two hypoechoic nodules at the pancreatic head, one measuring up to 2.1 cm and the other measuring up to 1.6 cm. Of these are nonspecific and could represent peripancreatic lymph nodes or possibly pancreatic nodules. Given patient symptomatology, follow-up pancreatic MRI and / or CT might be considered for further evaluation. Impression: There are two hypoechoic nodules in or adjacent to the pancreatic head. Given patient symptomatology, follow-up MRI and / or CT might be considered for further evaluation. The gallbladder is contracted. Electronically Signed by Jose Garzon MD 12/31/2018 08:27 A
--- NOTE | 2019-01-01 07:54 | IPN ---
DATE OF SERVICE: 12/31/2018 He has history of insulin dependent diabetes type 2 poor control, hypertension, renal disease, who has had increasing edema, pedal edema, ankle edema, scrotal edema. We gave him 80 mg of Lasix yesterday. He did lose 1.5 pounds. His labs today show AST was 167 and it is up to 197, ALT is up to 242. Pro-BNP was 621 yesterday and is 618 today. Renal function - BUN is 15, creatinine 1.68. Electrolytes were normal. Right upper quadrant ultrasound was done which showed 1) hepatic parenchyma is homogenous and otherwise unremarkable. 2) Hypoechoic nodules and are adjacent to the pancreatic head. Gallbladder contracted. Otherwise unremarkable ultrasound. He states he does have history of hepatitis C. He states he was told he had this approximately four months ago at another hospital. Echocardiogram was done which was unremarkable. Normal left ventricular size. Mild left ventricular hypertrophy with preserved LV systolic function. Left ventricular ejection fraction 60-65%. No significant valvular disease. Normal central venous pressure. Normal or mildly elevated pulmonary artery pressure. The study was overall consistent with mild hypertensive heart disease. The patient's diabetes has been difficult to control, noncompliant with diet, eating whatever he wants. We did add 5 units of Humalog before each meal and his Levemir was increased to 85 units. Blood sugars are still running elevated over 200. Will make further adjustments. The patient is still having edema from his toes through to his scrotum and elevating liver enzymes. Recommendation was made to discharge the patient from inpatient mental health unit and the patient will be admitted to acute medical inpatient. His mental status health status is stable and there was plan for discharge from the mental health unit. His medical status is not stable for discharge.
[2019-01-01] MEDS ORDERED: QC A650T3 PO (08:45)
[2019-01-01] MEDS ORDERED: LASI20TA3 PO (08:47)
[2019-01-01] MEDS ORDERED: FORA1KIT XX (08:51)
[2019-01-01 10:51] LABS: HEPATITIS A ANTIBODY IGM NEGATIVE (NEGATIVE); HEPATITIS B CORE ANTIBODY IGM NEGATIVE (NEGATIVE); HEPATITIS B SURFACE ANTIGEN NEGATIVE (NEGATIVE)
[2019-01-01 10:52] LABS: HEPATITIS C VIRUS ABY INDEX > 11.0 INDEX (<0.8)
== END 2018-12-31 17:55 | disposition short-term general hospital (02) | DRG 885 ==
LOC: M PSY 11:11
PROVIDERS: ADMIT Psychiatry & Neurology Psychiatry; ATTEND Psychiatry & Neurology Psychiatry
DX: F25.1 Schizoaffective disorder, depressive type (principal); F41.1 Generalized anxiety disorder; F14.90 Cocaine use, unspecified, uncomplicated; F43.10 Post-traumatic stress disorder, unspecified; E11.40 Type 2 diabetes mellitus with diabetic neuropathy, unspecified; E11.319 Type 2 diabetes mellitus with unspecified diabetic retinopathy without macular edema; E78.00 Pure hypercholesterolemia, unspecified; I10 Essential (primary) hypertension; F17.200 Nicotine dependence, unspecified, uncomplicated; F10.10 Alcohol abuse, uncomplicated; Z79.899 Other long term (current) drug therapy; Z79.4 Long term (current) use of insulin

== ENCOUNTER 2018-12-31 15:42 | Observation (INO) | payer MEDICARE ==
[~2018-12-31] VITALS: Ht 175.3 cm; Wt 86.8 kg
[~2018-12-31 15:42] MED LIST changes: +NIFE1TAB52 PO; -NIFE30TA7 PO; -SERT-155 PO; +SERT25TA21 PO; -SERT25TA88 PO; +SERT50TA29 PO
[2018-12-31] MEDS ORDERED: DEPA250T32 PO (16:36)
[2018-12-31] MEDS ORDERED: COLA100C5 PO (16:36)
[2018-12-31] MEDS ORDERED: CARV12.5 PO (16:36)
[2018-12-31] MEDS ORDERED: QUET5TAB PO (16:37)
[2018-12-31] MEDS ORDERED: TRAZ-252 PO (16:37)
[2018-12-31] MEDS ORDERED: GABA-843 PO (16:37)
[2018-12-31] MEDS ORDERED: NICO2GUM PO (16:37)
[2018-12-31] MEDS ORDERED: QUET1TAB8 PO (16:37)
[2018-12-31] MEDS ORDERED: VITMTA PO (16:37)
[2018-12-31] MEDS ORDERED: THIA100TA PO (16:37)
[2018-12-31] MEDS ORDERED: FOLI1TAB11 PO (16:37)
[2018-12-31] MEDS ORDERED: MINI1CAP PO (16:37)
[2018-12-31] MEDS ORDERED: KLOR10TA76 PO (16:37)
[2018-12-31] MEDS ORDERED: LISI40TA PO (16:37)
[2018-12-31] MEDS ORDERED: IBUP-1022 PO (16:37)
[2018-12-31] MEDS ORDERED: MAG400TA PO (16:37)
[2018-12-31] MEDS ORDERED: FURO80TA2 PO (16:37)
[2018-12-31] MEDS ORDERED: QUET200T2 PO (16:37)
[2018-12-31] MEDS ORDERED: HYDR1TAB33 PO (16:37)
[2018-12-31] MEDS ORDERED: SERT50TA29 PO (16:37)
[2018-12-31] MEDS ORDERED: GLUCAGON FOR INJ 1 MG VIAL (J1610) SC PRN (17:15)
[2018-12-31] MEDS ORDERED: DEXTROSE 50% 50 ML SYRINGE IV PRN (17:15)
[2018-12-31] MEDS ORDERED: GLUCOSE 4 GM CHEW TABLET PO PRN (17:15)
[2018-12-31] MEDS ORDERED: INSUDET SC (17:27)
[2018-12-31 18:00] VITALS: BP 158/88
--- NOTE | 2018-12-31 18:27 | IPNPDOC ---
Text Note Date of Service The patient was seen on 12/31/18. NOTE Time of service 6:20 PM CHIEF COMPLAINT: Bilateral lower extremity edema. HISTORY OF PRESENT ILLNESS: The patient was seen and examined previously in the inpatient psych unit on December 29 when he developed bilateral lower extremity edema that extended into the scrotum up into the abdomen. At that time. He did not endorse any chest pain or dyspnea. Initial workup revealed mild renal insufficiency with a creatinine of 1.38, GFR greater than 60, and transaminitis, within AST 167, and ALT of 187. He had an echo and ultrasound of the abdomen, both of which were unremarkable. Per discussion with HEAD MACHINIST, the patient's symptoms have not completely resolved and he scheduled to be discharged from inpatient psych unit. Therefore, he was transferred to the medical floor for treatment with high doses of Lasix. Today, I reevaluated the patient. Reports that his bilateral lower extremity edema has improved a lot, and that the the abdominal swelling and scrotal swelling have completely resolved. He does agree that the bilateral lower ext remity edema may have been caused by medication because the swelling started a few days after his medications were changed. 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 PHYSICAL EXAM: VITALS: T 98.3, P 69, RR 16, BP 164/83, O2 100% on RA GEN.: Well-nourished, well-developed, appears stated age. HEENT: Normocephalic, atraumatic. No facial edema noted. CVS: Regular rate and rhythm, no murmurs, rubs or gallops. LUNGS: Clear to auscultation bilaterally on room air. ABDOMEN: Less distended than a few days ago, soft, not tender on palpation. EXTREMITIES: 1+ bilateral lower extremity edema still present. MUSCULOSKELETAL: Gait normal, range of motion intact in all extremities. NEURO: CN II-12 grossly intact, speech, not dysarthric. PSYCH: Alert and oriented to person, place and time, able to understand and follow up commands DIAGNOSTIC DATA: See HPI. ASSESSMENT AND PLAN: Mr. Thornton is a 48-year-old male with a past medical history of diabetes, hypertension, and multiple psychiatric issues who has been admitted to the general medical floor for evaluation of anasarca. 1 Bilateral lower extremity edema. Possibly due to an adverse reaction to nifedipine; which was discontinued on the . Abdominal swelling and scrotal swelling have resolved and leg swelling is improving Blood work, echo, and liver ultrasound of the reviewed. Plan: We'll give 1 more dose of Lasix tonight, and follow-up on his progress in the morning, 2. Transaminitis likely secondary to hepatitis C Plan: follow up with [facility] [employer] [facility] on an outpatient basis 3.BELLE vs CKD III Plan: follow-up BMP, 4. Type 2 diabetes. Plan continue previous regimen and follow-up Accu-Cheks. 5. Multiple psychiatric issues. Plan: c/w current meds DVT prophylaxis not necessary as the patient is ambulatory Disposition possibly home pending resolution of edema tomorrow BRADY DALEY MD Dec 31, 2018 18:27
[2018-12-31] MEDS ORDERED: traZODone 50 MG TAB PO SCH (21:00)
[2018-12-31] MEDS ORDERED: LEVEMIR (INSULIN DETEMIR) 1 UNITS/0.01ML SC SCH (21:00)
[2018-12-31] MEDS: NICOTINE POLACRILEX 2 MG GUM PO PRN ×2 (21:31→23:38)
[2018-12-31 22:00] VITALS: BP 164/83
[2019-01-01] MEDS: NICOTINE POLACRILEX 2 MG GUM PO PRN ×3 (01:38→10:42)
[2019-01-01 01:40] VITALS: BP 167/82
[2019-01-01 06:00] VITALS: BP 166/82
[2019-01-01 06:55] LABS: HEMATOCRIT 30.3 % (42.0-52.0); HEMOGLOBIN 9.9 g/dl (13.5-17.5); MEAN CORPUSCULAR HEMOGLOBIN 27.7 pg (27.0-33.0); MEAN CORPUSCULAR HGB CONC 32.7 g/dl (32.0-36.5); MEAN CORPUSCULAR VOLUME 84.9 fl (80.0-96.0); PLATELET COUNT, AUTOMATED 223 10^3/uL (150-450); RED BLOOD COUNT 3.57 10^6/uL (4.30-6.10); WHITE BLOOD COUNT 6.1 10^3/uL (4.0-10.0)
[2019-01-01 07:20] LABS: ALBUMIN 1.5 GM/DL (3.2-5.2); ALT/SGPT 219 U/L (12-78); BILIRUBIN,TOTAL 0.1 MG/DL (0.2-1.0); BLOOD UREA NITROGEN 12 MG/DL (7-18); CALCIUM LEVEL 7.7 MG/DL (8.5-10.1); CARBON DIOXIDE LEVEL 30 MEQ/L (21-32); CHLORIDE LEVEL 106 MEQ/L (98-107); CREATININE FOR GFR 1.52 MG/DL (0.70-1.30); GLOMERULAR FILTRATION RATE > 60.0 (>60); GLUCOSE, FASTING 207 MG/DL (70-100); MAGNESIUM LEVEL 1.4 MG/DL (1.8-2.4); POTASSIUM SERUM 3.8 MEQ/L (3.5-5.1); SODIUM LEVEL 141 MEQ/L (136-145); TOTAL PROTEIN 5.4 GM/DL (6.4-8.2)
[2019-01-01] MEDS ORDERED: IBUPROFEN 600 MG TAB PO PRN (07:45)
[2019-01-01] MEDS ORDERED: traZODone 50 MG TAB PO PRN (07:45)
[2019-01-01] MEDS ORDERED: hydrOXYzine 50 MG TAB PO PRN (07:45)
--- NOTE | 2019-01-01 07:54 | MHDS ---
DATE OF ADMISSION: 12/23/2018 DATE OF DISCHARGE: 12/31/2018 I want to clarify that I never had seen this patient before. According to the records this patient has a history of schizoaffective disorder. He was admitted because he decompensated. He was voicing problems with depression and also voicing suicidal thoughts of jumping off a bridge. Also, he was stating that he was hearing voices and seeing images related to his experiencing the aftermath of February 14 and according to the admission note he was admitted to the psychiatric unit for those reasons. The patient is being discharged because he was seen by the nurse practitioner, Geneva Irving and apparently the patient has very severe edema of the lower extremities and he is being transferred to the medical service so that he can be given intravenous Lasix. They are not sure what is causing the severe edema at this point. DISCHARGE DIAGNOSES ACCORDING TO THE PATIENT'S PROGRESS NOTE DONE BY DR. CAST IS FOLLOWS: 1. Schizoaffective disorder, bipolar type. 2. Current episode depressed. 3. Cocaine use disorder. 4. Post traumatic stress disorder. 5. Generalized anxiety disorder. HOSPITAL COURSE: According to Dr. Cast, last progress note done on 12/29/2018, it stated that the patient was seen, he was angry because he could not have decker because he is on a carbohydrate diet and he was agreeable to have a nutrition consult, otherwise he was stating that he was feeling alright, was not longer irritable and depressed and his cocaine withdrawal symptoms were improving. Dr. Cast described him as being "euthymic and full of range with staff and peers." She stated that he was no longer medication seeking. She had increased his Seroquel to help him sleep better and the patient was calling rehabilitation programs to try to get transferred there for substance abuse. She felt that he was tolerating his medications. He was attending groups and that he was not suicidal, homicidal or having any hallucinations or delusions. The plan was to continue him on the following psychiatric medications to include: - Depakote 750 mg twice a day - gabapentin 600 mg three times a day - prazosin 4 mg nightly - Seroquel 100 mg daily - Seroquel 400 mg nightly - Zoloft 150 mg daily - trazodone 50 mg nightly as needed for insomnia - Atarax 50 mg every 6 hours as needed for anxiety MENTAL STATUS EXAM: No mental status exam was done because the patient was never seen by me. GRIFFIN
[2019-01-01] MEDS ORDERED: HumaLOG INSULIN (NovoLOG) PER UNIT SC SCH (08:00)
--- NOTE | 2019-01-01 08:08 | HPE ---
DATE OF ADMISSION: 12/31/2018 CHIEF COMPLAINT: Edema. This is a 48-year-old male who was admitted to the inpatient mental health unit. After being discharged from the hospital on 12/23/2018, having been treated for DKA. He has a history of insulin dependant diabetes, alcohol abuse, polysubstance abuse who had suicidal ideations and was subsequently transferred to the inpatient mental health unit after be stabilized from the DKA. While on the inpatient mental health unit, he began experiencing edema of his lower extremities that extended up both legs to the sacrum. The scrotum was enlarged and edematous. His AST and ALT became elevated. They were 167 and 187, BNP was done and it was 621. An echocardiogram was ordered which showed left ventricular ejection fraction 60-65%. The study showed normal left ventricular size with mild left ventricular hypertrophy and preserved LV systolic function probably normal diastolic function. No significant valvular disease. Normal central venous pressure and a normal or mildly elevated pulmonary artery pressure. The study is overall consistent with mild hypertensive heart disease. He was started of 80 of by mouth Lasix. He did loose approximately 2 pounds in 24 hours. His liver enzymes today were more elevated. AST was 197, ALT was 242, BNP was 618. He had renal insufficiency secondary to chronic kidney disease and uncontrolled diabetes. His BUN and creatinine on the was 11 and 1.59. On the 15 and 168, electrolytes were normal. PT/INR was normal. Abdominal ultrasound was done and showed no ascites. Showed possible pancreatic nodule, contracted gallbladder. His blood sugar had remained elevated. A short acting insulin was added 5 units before meals and his blood sugars continued to be in the 200's. He was noncompliant with diet and eating extra food despite counseling. There has been no improvement and decision was made to discharge the patient from the inpatient mental health unit. Patient will be admitted observation status. She is under the service of Dr. Lewis, hospitalist for further treatment and determination of cause of the anasarca. Patient will be admitted observation status. ALLERGIES: No known allergies. SOCIAL HISTORY: He smokes 2-3 packs of cigarettes per day. He drinks beer and liquor daily. He has used IV drugs to include cocaine. 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 PAST SURGICAL HISTORY: None. FAMILY HISTORY: Mother from diabetes complications. Father alive and health. REVIEW OF SYSTEMS: No complaints of headache, no blurry or double vision. No fever, no chills, no tinnitus. No hoarseness. No difficulty swallowing. No lightheadedness, no vertigo. Cardiovascular, No complaints of chest pain, shortness of breath, palpitations. He has edema bilateral pedal pretibial, all the way up to the sacrum and abdomen. Scrotum was enlarged. Respiratory, no chronic cough, no sputum production and no hemoptysis, no orthopnea, no wheeze. GI no nausea, vomiting, or diarrhea. No hematochezia. No melena. No complaints of abdominal pain. , no hematuria, dysuria, or frequency. Musculoskeletal, no joint redness or swelling. Endocrine, history of insulin dependant diabetes. Hematological no history of anemia. Neurological no history of paresthesias or neuralgia's. Psychological history of schizoaffective disorder, bipolar, PTSD. CURRENT MEDICATIONS: Coreg 25 mg by mouth twice a day, Depakote 750 mg by mouth twice a day, gabapentin 600 mg by mouth three times a day, Levemir 85 units subcu at bedtime, Humalog 5 mg before meals, Lisinopril 40 mg by mouth daily, Colace 100 mg by mouth daily, Lasix 80 mg by mouth daily, Thiamine 100 mg daily, multivitamin 1 by mouth daily, Seroquel 400 mg at bedtime, Trazodone 15 mg by mouth at bedtime, Sertraline 50 mg by mouth daily, mirtazapine 45 mg at bedtime. PHYSICAL EXAMINATION: 48-year-old male in no acute distress. Blood pressure 150/60, pulse 70, respirations 18, temperature 98, oxygen saturation 96% on room air. Patient is alert and oriented times three. Pupils equal and reactive to light. EOM's are intact. Conjunctiva is normal. No facial asymmetry. Pharynx, tongue and nose pink and moist . Tongue is midline. Neck is supple without lymphadenopathy, no thyromegaly, no goiter. Jugular venous distension of the clavicle. She has decreased breath sounds. No wheezes or retraction. Heart is regular. Abdomen is slightly distended and nontender. No masses, pulsations or bruits. No organomegaly, bowel sounds are positive. and rectal not done. Scrotum is enlarged and edematous. Extremities show bilateral pedal ankle, pretibial edema extending to the sacrum. Peripheral pulses are equal and palpable bilaterally. Skin is warm and dry. IMPRESSION: Edema, anasarca cause to be determined. Elevated liver enzymes, stated history of hepatitis C, hepatitis panel has been ordered. History of insulin dependant diabetes with poor control. We will continue Levemir and Humalog before meals, adjust insulin as needed. Continue diabetic education, consistent carbohydrate diet. Hypertension, continue lisinopril and Coreg. Hypercholesterolemia, continue statin secondary to elevated liver enzymes. Poly substance abuse, schizoaffective disorder, bipolar, PTSD. Continued followup with mental health. The patient will be admitted the service of hospitalist of Dr. Lewis to the medical floor, observation status.
--- NOTE | 2019-01-01 08:10 | REP ---
Renal ultrasound: Comparison is the complete abdominal ultrasound dated 11/06/2018. The right kidney is normal size measuring 12.3 x 6.2 x 6.2 cm, unchanged. The left kidney is normal size measuring 12.2 x 5.0 x 6.1 cm, unchanged. Renal cortical echogenicity is normal bilaterally. There is no hydronephrosis or calculus. There are no solid or cystic masses. Bladder: The bladder is incompletely distended and cannot be further evaluated. Impression: Essentially negative renal ultrasound. There is no interval change. Electronically Signed by Jose Garzon MD 01/01/2019 08:02 A
[2019-01-01] MEDS ORDERED: QC A650T3 PO (08:45)
[2019-01-01] MEDS ORDERED: LASI20TA3 PO (08:47)
[2019-01-01] MEDS ORDERED: FORA1KIT XX (08:51)
--- NOTE | 2019-01-01 08:56 | DS.PDOC ---
Discharge Summary General Date of Admission Dec 31, 2018 at 18:00 Date of Discharge 01.01.19 Time of service 8:05 AM Primary Care Physician: A Attending Physician: BRADY DALEY MD Specialist/Consultants Involve: A Discharge Summary PROCEDURES PERFORMED DURING STAY: [None]. ADMITTING DIAGNOSES: 1. Bilateral lower extremity edema DISCHARGE DIAGNOSES: 1. Lateral lower extremity edema, likely secondary to nifedipine and has resolved. COMPLICATIONS/CHIEF COMPLAINT: Anasarca,Elevated Lft. HISTORY OF PRESENT ILLNESS: Per HPI this is a 48-year-old male who was initially admitted to the hospital in mid December for treatment of DKA. He was transferred to the inpatient psych unit for management of suicidal ideations. On December 29. While admitted in the inpatient unit psychiatric unit he began experiencing bilateral lower extremity edema that extended up into his scrotum and abdomen. He denied having shortness of breath, facial swelling or chest pain at the time. He denied having a history of heart failure or kidney problems. Through chart review, it was noted that he was taking both, nifedipine and gabapentin, both of which can cause leg swelling. It was felt that the edema was more likely due to an adverse reaction of the medication as the patient reported that it occurred suddenly within a few days of starting several new medications, and he denied having any upper respiratory symptoms that are typically seen in patients CHF. Nifedipine was discontinued. CBC, CMP, ultrasound of the kidney and echocardiogram were done. The creatinine was 1.38, AST was 167 and ALT was 187. He had an echocardiogram and ultrasound of abdomen, both of which were unremarkable. Through further questioning, the patient revealed that he had a diagnosis of hepatitis C. HOSPITAL COURSE: Yesterday the patient was transferred to the general medical floor for additional treatment. At the time was noted that his bilateral lower extremity edema had improved and his abdominal and scrotal swelling had completely resolved. He was reexamined at 805 a.m., reported that his leg swelling had resolved and that he like to go home. DISCHARGE MEDICATIONS: Please see below. ALLERGIES: Please see below. PHYSICAL EXAM: VITALS: See below GEN.: Well-nourished, well-developed, no apparent distress HEENT: Normocephalic, atraumatic. No facial edema noted. CVS: Regular rate and rhythm, no murmurs, rubs or gallops. LUNGS: Clear to auscultation bilaterally on room air. ABDOMEN: Soft, not tender on palpation. EXTREMITIES: Bilateral lower extremity edema has resolved. MUSCULOSKELETAL: Range of motion intact in all extremities. NEURO: CN II-12 grossly intact, speech, not dysarthric. PSYCH: Alert and oriented to person, place and time, able to understand and follow up commands LABORATORY DATA: Please see below. IMAGING: See HPI PROGNOSIS:. Fair ACTIVITY: [As tolerated]. DIET: Diabetic, low-salt DISCHARGE PLAN: The patient was discharged home with Lasix 20 mg by mouth for 2 more days. He was instructed to follow-up with his primary care physician, and psychiatrist. DISPOSITION: . DISCHARGE INSTRUCTIONS: 1. Follow up with the PCP by the end of the week. 2. Follow up with her psychiatrist by the end of the week ITEMS TO FOLLOWUP ON ON OUTPATIENT: 1. When the patient sees his PCP he should have repeat BMP done, he will need adjustment of his anti-glycemic regimen. We discharged him on primarily long- acting insulin with the hopes that he may be more compliant with this dosing. His PCP can also discuss with the patient whether would like to be referred to GI for treatment of his hepatitis C. DISCHARGE CONDITION: [Stable]. TIME SPENT ON DISCHARGE: Greater than 20 minutes. Vital Signs/I&Os Vital Signs Date Time Temp Pulse Resp B/P (MAP) Pulse Ox O2 Delivery O2 Flow Rate FiO2 01/01/19 06:00 98.5 76 12 166/82 (110) 99 I&O- Last 24 Hours up to 6 AM 01/01/19 06:00 Intake Total 420 ml Balance 420 ml Laboratory Data Labs 24H Laboratory Tests 2 12/31/18 19:57: Bedside Glucose (Misc Panel) 245H 01/01/19 06:08: Nucleated Red Blood Cells % (auto) 0.0, Anion Gap 5L, Glomerular Filtration Rate > 60.0, Blood Urea Nitrogen 12, Creatinine 1.52H, Sodium Level 141, Potassium Level 3.8, Chloride Level 106, Carbon Dioxide Level 30, Calcium Level 7.7L, Aspartate Amino Transf (AST/SGOT) 171H, Alanine Aminotransferase (ALT/SGPT) 219H, Alkaline Phosphatase 97, Total Bilirubin 0.1L, Total Protein 5.4L, Albumin 1.5L, Magnesium Level 1.4L, Albumin/Globulin Ratio 0.38L CBC/BMP Laboratory Tests 01/01/19 06:08 Red Blood Count 3.57 L, Mean Corpuscular Volume 84.9, Mean Corpuscular Hemoglobin 27.7, Mean Corpuscular Hemoglobin Concent 32.7, Red Cell Distribution Width 13.3, Calcium Level 7.7 L, Aspartate Amino Transf (AST/SGOT) 171 H, Alanine Aminotransferase (ALT/SGPT) 219 H, Alkaline Phosphatase 97, Total Bilirubin 0.1 L, Total Protein 5.4 L, Albumin 1.5 L FSBS Laboratory Tests Test 12/31/18 19:57 Range/Units Bedside Glucose (Misc Panel) 245 70-105 MG/DL Discharge Medications Scheduled Acetaminophen (Acetaminophen 8 Hour) 650 Mg Tablet.er, 650 MG PO TID Carvedilol (Carvedilol) 12.5 Mg Tablet, 25 MG PO BID for cardiac disease Divalproex Sodium (Divalproex Sodium) 250 Mg Tablet.dr, 750 MG PO BID, ( Reported) Docusate Sodium (Colace) 100 Mg Capsule, 100 MG PO BID for constipation Folic Acid (Folic Acid) 1 Mg Tablet, 1 MG PO DAILY for nutrtional supplement Furosemide (Lasix) 20 Mg Tablet, 20 MG PO DAILY Gabapentin (Neurontin) 300 Mg Capsule, 600 MG PO TID, (Reported) Insulin Detemir (Levemir) 100 Unit/1 Ml Vial, 85 UNITS SC QHS, (Reported) Insulin Human Lispro (Humalog) 100 Unit/1 Ml Vial, 1 DOSE SC ACHS, (Reported) PER SLIDING SCALE Lisinopril (Lisinopril) 40 Mg Tab, 40 MG PO DAILY, (Reported) Magnesium Oxide (Magnesium Oxide) 400 Mg Tablet, 400 MG PO DAILY for nutritional supplement Mirtazapine (Mirtazapine) 45 Mg Tab.rapdis, 45 MG PO QHS, (Reported) Multivitamins (Thera M Plus Tablet) 1 Each Tablet, 1 TAB PO DAILY for nutritional supplement Paliperidone Palmitate (Invega Sustenna) 234 Mg/1.5 Ml Syringe, 234 MG IM QMONTH, (Reported) Potassium Chloride (Klor-Con M10) 10 Meq Tab.er.prt, 20 MEQ PO DAILY for hypokalemia Potassium Phos/Sodium Phos (Phos-Nak Packet) 1 Each Powd.pack, 1 PKT PO QID, (Reported) Prazosin Hcl (Prazosin HCl) 1 Mg Capsule, 4 MG PO QHS, (Reported) Quetiapine Fumarate (Quetiapine Fumarate) 400 Mg Tablet, 400 MG PO QHS, (Reported) TAKES WITH 100MG FOR 400MG TOTAL AT QHS Quetiapine Fumarate (Quetiapine Fumarate) 100 Mg Tablet, 100 MG PO DAILY for mood Quetiapine Fumarate (Quetiapine Fumarate) 50 Mg Tablet, 50 MG PO QHS for mood Sertraline HCl (Sertraline HCl) 50 Mg Tablet, 150 MG PO DAILY, (Reported) Thiamine Hcl (Vitamin B-1) 100 Mg Tablet, 100 MG PO DAILY for alcohol withdrawals Scheduled PRN Hydroxyzine HCl (Hydroxyzine HCl) 50 Mg Tablet, 50 MG PO Q6HP PRN for ANXIETY/AGITATION Nicotine Polacrilex (Nicotine Gum) 2 Mg Gum, 4 MG PO Q2HP PRN for NICOTINE WITHDRAWAL Trazodone HCl (Trazodone HCl) 50 Mg Tablet, 50 MG PO QHSP PRN for INSOMNIA Allergies Coded Allergies: No Known Allergies (Unverified , 10/19/18) BRADY DALEY MD Jan 01, 2019 08:56
[2019-01-01 08:59] VITALS: BP 166/82
[2019-01-01] MEDS ORDERED: DOCUSATE SODIUM 100 MG CAP PO SCH (09:00)
[2019-01-01] MEDS ORDERED: MAGNESIUM OXIDE 400 MG TAB (MAG-OX) PO SCH (09:00)
[2019-01-01] MEDS ORDERED: FUROSEMIDE 40 MG TAB PO SCH (09:00)
[2019-01-01] MEDS ORDERED: lisinopriL 40 MG TAB PO SCH (09:00)
[2019-01-01] MEDS: QUEtiapine FUMARATE 100 MG TAB PO SCH (09:00)
[2019-01-01] MEDS ORDERED: CARVedilol 12.5 MG TAB PO SCH (09:00)
[2019-01-01] MEDS ORDERED: FOLIC ACID 1 MG TAB PO SCH (09:00)
[2019-01-01] MEDS ORDERED: NEUTRA-PHOS 1.5 GM PACKET PO SCH (09:00)
[2019-01-01] MEDS ORDERED: THIAMINE 100 MG TAB PO SCH (09:00)
[2019-01-01] MEDS ORDERED: GABAPENTIN 300 MG CAP PO SCH (09:00)
[2019-01-01] MEDS ORDERED: SERTRALINE HCL 50 MG TAB PO SCH (09:00)
[2019-01-01] MEDS ORDERED: FUROSEMIDE 80 MG TAB PO SCH (09:00)
[2019-01-01] MEDS ORDERED: DIVALPROEX 250 MG TAB PO SCH (09:00)
--- NOTE | 2019-01-01 11:44 | IPNPDOC ---
Subjective Date Seen The patient was seen on 01/01/19. VS, I&O, 24H, Fishbone Vital Signs/I&O Vital Signs Date Time Temp Pulse Resp B/P (MAP) Pulse Ox O2 Delivery O2 Flow Rate FiO2 01/01/19 08:59 76 166/82 01/01/19 06:00 98.5 12 99 I&O- Last 24 Hours up to 6 AM 01/01/19 06:00 Intake Total 420 ml Balance 420 ml Laboratory Data 24H LABS Laboratory Tests 2 12/31/18 19:57: Bedside Glucose (Misc Panel) 245H 01/01/19 06:08: Nucleated Red Blood Cells % (auto) 0.0, Anion Gap 5L, Glomerular Filtration Rate > 60.0, Blood Urea Nitrogen 12, Creatinine 1.52H, Sodium Level 141, Potassium Level 3.8, Chloride Level 106, Carbon Dioxide Level 30, Calcium Level 7.7L, Aspartate Amino Transf (AST/SGOT) 171H, Alanine Aminotransferase (ALT/SGPT) 219H, Alkaline Phosphatase 97, Total Bilirubin 0.1L, Total Protein 5.4L, Albumin 1.5L, Magnesium Level 1.4L, Albumin/Globulin Ratio 0.38L CBC/BMP Laboratory Tests 01/01/19 06:08 Red Blood Count 3.57 L, Mean Corpuscular Volume 84.9, Mean Corpuscular Hemoglobin 27.7, Mean Corpuscular Hemoglobin Concent 32.7, Red Cell Distribution Width 13.3, Calcium Level 7.7 L, Aspartate Amino Transf (AST/SGOT) 171 H, Alanine Aminotransferase (ALT/SGPT) 219 H, Alkaline Phosphatase 97, Total Bilirubin 0.1 L, Total Protein 5.4 L, Albumin 1.5 L BRADY DALEY MD Jan 01, 2019 11:44
[2019-01-01] MEDS ORDERED: QUEtiapine FUMARATE 200 MG TAB PO SCH (21:00)
[2019-01-01] MEDS ORDERED: QUEtiapine FUMARATE 100 MG TAB PO SCH (21:00)
[2019-01-01] MEDS ORDERED: PRAZOSIN 1 MG CAP PO SCH (21:00)
[2019-01-01] MEDS ORDERED: QUEtiapine FUMARATE 50 MG TAB PO SCH (21:00)
[2019-02-21] MEDS ORDERED: SUBO2MIS SL (11:48)
== END 2019-01-01 11:40 | disposition home or self-care (01) ==
LOC: M MS5PR 18:00
PROVIDERS: ADMIT Internal Medicine; ATTEND Internal Medicine
DX: R60.1 Generalized edema (principal); R94.5 Abnormal results of liver function studies; E11.40 Type 2 diabetes mellitus with diabetic neuropathy, unspecified; E11.319 Type 2 diabetes mellitus with unspecified diabetic retinopathy without macular edema; Z79.4 Long term (current) use of insulin; F25.0 Schizoaffective disorder, bipolar type; F32.9 Major depressive disorder, single episode, unspecified; F14.90 Cocaine use, unspecified, uncomplicated; F43.10 Post-traumatic stress disorder, unspecified; F41.1 Generalized anxiety disorder; B18.2 Chronic viral hepatitis C; I10 Essential (primary) hypertension; E78.00 Pure hypercholesterolemia, unspecified; Z79.899 Other long term (current) drug therapy; F17.210 Nicotine dependence, cigarettes, uncomplicated
CPT/HCPCS: 36415; 76775; 80053; 83735; 85027; G0378

== ENCOUNTER 2019-01-02 04:22 | Emergency (ER) | payer MEDICARE ==
[~2019-01-02] VITALS: Ht 175.3 cm; Wt 92.1 kg
[~2019-01-02 04:22] MED LIST changes: +COLA100C5 PO; +FOLI1TAB11 PO; +FORA1KIT XX; +FURO80TA2 PO; +HYDR1TAB33 PO; +IBUP-1022 PO; +KLOR10TA76 PO; +LASI20TA3 PO; +MAG400TA PO; +NICO2GUM PO; +QC A650T3 PO; +QUET200T2 PO; +QUET5TAB PO; +THIA100TA PO; +TRAZ-252 PO; +VITMTA PO
[2019-01-02] MEDS ORDERED: NS 1,000 ML IV ONE (04:45)
[2019-01-02 05:14] LABS: BASO % 0.2 % (0.0-1.0); EOS % 0.4 % (0.0-3.0); HEMATOCRIT 34.4 % (42.0-52.0); HEMOGLOBIN 11.2 g/dl (13.5-17.5); LYMPH # 1.8 10^3/uL (1.5-4.5); LYMPH % 20.1 % (24.0-44.0); MEAN CORPUSCULAR HEMOGLOBIN 27.4 pg (27.0-33.0); MEAN CORPUSCULAR HGB CONC 32.6 g/dl (32.0-36.5); MEAN CORPUSCULAR VOLUME 84.1 fl (80.0-96.0); MONO # 0.8 10^3/uL (0.0-0.8); MONO % 8.9 % (0.0-5.0); NEUTROPHILS # 6.3 10^3/uL (1.8-7.7); NEUTROPHILS % 69.6 % (36.0-66.0); PLATELET COUNT, AUTOMATED 252 10^3/uL (150-450); RED BLOOD COUNT 4.09 10^6/uL (4.30-6.10); WHITE BLOOD COUNT 9.1 10^3/uL (4.0-10.0)
[2019-01-02] MEDS ORDERED: HumuLIN R (REGULAR) INSULIN (NovoLIN R) **100U/ML** PER UNIT IV ONE ×2 (05:15→06:00)
[2019-01-02 05:38] LABS: CALCIUM LEVEL 8.5 MG/DL (8.5-10.1); CREATININE FOR GFR 1.69 MG/DL (0.70-1.30); GLOMERULAR FILTRATION RATE 55.9 (>60); POTASSIUM SERUM 4.3 MEQ/L (3.5-5.1)
[2019-01-02 06:38] VITALS: BP 157/68
[2019-02-21] MEDS ORDERED: SUBO2MIS SL (11:48)
== END 2019-01-02 06:43 | disposition home or self-care (01) ==
LOC: M ED 04:22
DX: E11.65 Type 2 diabetes mellitus with hyperglycemia (principal); I10 Essential (primary) hypertension; F31.9 Bipolar disorder, unspecified; F10.10 Alcohol abuse, uncomplicated; Z79.899 Other long term (current) drug therapy; Z79.4 Long term (current) use of insulin

== ENCOUNTER 2019-01-06 01:26 | Emergency (ER) | payer MEDICARE ==
[~2019-01-06] VITALS: Ht 175.3 cm; Wt 93.2 kg
[2019-01-06 02:16] LABS: ETHYL ALCOHOL (ETHANOL) 0.059 % (0.000-0.010)
[2019-01-06 02:29] LABS: BASO % 0.4 % (0.0-1.0); EOS % 0.3 % (0.0-3.0); HEMATOCRIT 34.1 % (42.0-52.0); HEMOGLOBIN 11.5 g/dl (13.5-17.5); LYMPH # 2.9 10^3/uL (1.5-4.5); LYMPH % 28.8 % (24.0-44.0); MEAN CORPUSCULAR HEMOGLOBIN 27.9 pg (27.0-33.0); MEAN CORPUSCULAR HGB CONC 33.7 g/dl (32.0-36.5); MEAN CORPUSCULAR VOLUME 82.8 fl (80.0-96.0); MONO # 0.7 10^3/uL (0.0-0.8); MONO % 6.5 % (0.0-5.0); NEUTROPHILS # 6.3 10^3/uL (1.8-7.7); NEUTROPHILS % 63.5 % (36.0-66.0); PLATELET COUNT, AUTOMATED 217 10^3/uL (150-450); RED BLOOD COUNT 4.12 10^6/uL (4.30-6.10)
[2019-01-06 02:37] LABS: VENOUS BASE EXCESS -1.6 (-2.0-2.0); VENOUS HCO3 23.4 MEQ/L (23.0-27.0); VENOUS O2 SATURATION 98.5 % (60.0-80.0); VENOUS PARTIAL PRESSURE CO2 40.6 mmHg (38.0-50.0); VENOUS PARTIAL PRESSURE O2 136.6 mmHg (30.0-50.0); VENOUS PH 7.378 UNITS (7.330-7.430); VENOUS STANDARD HCO3 23.1 MEQ/L; VENOUS TOTAL CO2 24.6 MEQ/L (24.0-28.0)
[2019-01-06 02:51] LABS: AMPHETAMINES LEVEL URINE POSITIVE (NEGATIVE); BARBITURATES URINE NEGATIVE (NEGATIVE); BENZODIAZEPINES URINE NEGATIVE (NEGATIVE); CANNABINOIDS URINE NEGATIVE (NEGATIVE); COCAINE METABOLITE URINE POSITIVE (NEGATIVE); HEMOGLOBIN A1c 14.6 %; METHADONE URINE NEGATIVE (NEGATIVE); OPIATES URINE NEGATIVE (NEGATIVE); PHENCYCLIDINE URINE NEGATIVE (NEGATIVE)
[2019-01-06] MEDS ORDERED: LEVEMIR (INSULIN DETEMIR) 1 UNITS/0.01ML SC ONE (03:15)
[2019-01-06] MEDS ORDERED: POTASSIUM CHLORIDE 10 MEQ SR TABLET PO ONE (03:15)
[2019-01-06] MEDS ORDERED: HumuLIN R (REGULAR) INSULIN (NovoLIN R) **100U/ML** PER UNIT IV ONE ×2 (03:15→05:00)
[2019-01-06 03:26] VITALS: BP 206/100
[2019-01-06] MEDS ORDERED: LABETALOL 100 MG TAB PO ONE (03:30)
[2019-01-06] MEDS ORDERED: ACETAMINOPHEN TAB 650MG DOSE (2X325MG) As Ordered ONE (05:07)
[2019-01-06] MEDS ORDERED: NS 1,000 ML IV ONE (05:15)
[2019-01-06] MEDS ORDERED: ACETAMINOPHEN TAB 650MG DOSE (2X325MG) PO ONE (05:15)
[2019-01-06 06:00] VITALS: BP 176/88
[2019-01-07] MEDS ORDERED: OXAZ30CA2 PO ×2 (02:57→02:58)
[2019-02-21] MEDS ORDERED: SUBO2MIS SL (11:48)
== END 2019-01-06 06:19 | disposition home or self-care (01) ==
LOC: M ED 01:26
DX: E10.9 Type 1 diabetes mellitus without complications (principal); Z79.4 Long term (current) use of insulin; F10.20 Alcohol dependence, uncomplicated; F13.10 Sedative, hypnotic or anxiolytic abuse, uncomplicated; F14.10 Cocaine abuse, uncomplicated; F17.210 Nicotine dependence, cigarettes, uncomplicated

== ENCOUNTER 2019-01-06 22:48 | Emergency (ER) | payer MEDICARE ==
[~2019-01-06] VITALS: Ht 175.3 cm; Wt 93.2 kg
[2019-01-07 02:12] LABS: AMPHETAMINES LEVEL URINE POSITIVE (NEGATIVE); BARBITURATES URINE NEGATIVE (NEGATIVE); BENZODIAZEPINES URINE NEGATIVE (NEGATIVE); CANNABINOIDS URINE NEGATIVE (NEGATIVE); COCAINE METABOLITE URINE POSITIVE (NEGATIVE); METHADONE URINE NEGATIVE (NEGATIVE); OPIATES URINE NEGATIVE (NEGATIVE); PHENCYCLIDINE URINE NEGATIVE (NEGATIVE)
[2019-01-07 02:27] LABS: BASO % 0.2 % (0.0-1.0); EOS # 0.1 10^3/uL (0.0-0.50); EOS % 0.7 % (0.0-3.0); HEMATOCRIT 31.6 % (42.0-52.0); LYMPH # 3.1 10^3/uL (1.5-4.5); LYMPH % 37.5 % (24.0-44.0); MEAN CORPUSCULAR HEMOGLOBIN 28.2 pg (27.0-33.0); MEAN CORPUSCULAR HGB CONC 34.8 g/dl (32.0-36.5); MONO # 0.6 10^3/uL (0.0-0.8); NEUTROPHILS # 4.5 10^3/uL (1.8-7.7); NEUTROPHILS % 54.2 % (36.0-66.0); PLATELET COUNT, AUTOMATED 192 10^3/uL (150-450); WHITE BLOOD COUNT 8.3 10^3/uL (4.0-10.0)
[2019-01-07 02:50] LABS: ALBUMIN 1.7 GM/DL (3.2-5.2); ALT/SGPT 142 U/L (12-78); BILIRUBIN,DIRECT 0.1 MG/DL (0.0-0.2); BILIRUBIN,TOTAL 0.3 MG/DL (0.2-1.0); BLOOD UREA NITROGEN 11 MG/DL (7-18); CALCIUM LEVEL 7.5 MG/DL (8.5-10.1); CARBON DIOXIDE LEVEL 27 MEQ/L (21-32); CHLORIDE LEVEL 100 MEQ/L (98-107); CREATININE FOR GFR 1.43 MG/DL (0.70-1.30); GLOMERULAR FILTRATION RATE > 60.0 (>60); GLUCOSE, FASTING 341 MG/DL (70-100); POTASSIUM SERUM 3.8 MEQ/L (3.5-5.1); SODIUM LEVEL 135 MEQ/L (136-145); TOTAL PROTEIN 6.2 GM/DL (6.4-8.2)
[2019-01-07] MEDS ORDERED: OXAZ30CA2 PO ×2 (02:57→02:58)
[2019-01-07 02:58] VITALS: BP 186/97
[2019-01-07] MEDS ORDERED: OXAZEPAM 15 MG CAP PO ONE (03:00)
[2019-02-21] MEDS ORDERED: SUBO2MIS SL (11:48)
== END 2019-01-07 03:11 | disposition home or self-care (01) ==
LOC: M ED 22:48
DX: F10.220 Alcohol dependence with intoxication, uncomplicated (principal); F13.10 Sedative, hypnotic or anxiolytic abuse, uncomplicated; F14.10 Cocaine abuse, uncomplicated; F17.210 Nicotine dependence, cigarettes, uncomplicated; E10.9 Type 1 diabetes mellitus without complications; I10 Essential (primary) hypertension; Z79.4 Long term (current) use of insulin; Z79.899 Other long term (current) drug therapy

== ENCOUNTER 2019-01-10 15:49 | Inpatient (IN) | payer MEDICARE ==
[~2019-01-10] VITALS: Ht 175.3 cm; Wt 81.5 kg
[~2019-01-10 15:49] MED LIST changes: -NIFE1TAB52 PO; +NIFE30TA7 PO; +OXAZ30CA2 PO; +SERT-155 PO; -SERT25TA21 PO; +SERT25TA88 PO; -SERT50TA29 PO
[2019-01-10] MEDS ORDERED: NS 1,000 ML IV ONE ×2 (16:30→19:00)
[2019-01-10] MEDS ORDERED: KETOROLAC 30 MG/ML VIAL (J1885) IV ONE ×2 (16:30→22:30)
--- NOTE | 2019-01-10 18:12 | REPVR ---
EXAM: US Left Non-Vascular Joint or Other Extremity Structure, Limited Upper Extremity EXAM DATE/TIME: 01/10/2019 5:34 PM CLINICAL HISTORY: 48 years old, male; Pain; Lower or forearm; Left; Additional info: Iv drug use, swelling pain arm TECHNIQUE: Imaging protocol: Left US Non-Vascular Joint or Other Extremity Structure. Limited exam of the upper extremity. COMPARISON: No relevant prior studies available. FINDINGS: Soft tissues: Large complex echogenic and partially cystic mass in the forearm deep to the subcutaneous soft tissues and superficial to the bone and muscles measures 3.8 x 2.7 x 6 cm. Increased flow is demonstrated around the perimeter of the lesion. There is marked thickening of the overlying subcutaneous soft tissues. IMPRESSION: Large complex mass in the forearm as described above. Differential includes abscess and neoplasm. Acute compartment syndrome not excluded as well. Electronically signed by: Osman Mcintosh On 01/10/2019 18:12:00 PM
[2019-01-10 18:13] LABS: HEMATOCRIT 33.7 % (42.0-52.0); HEMOGLOBIN 11.5 g/dl (13.5-17.5); MEAN CORPUSCULAR HGB CONC 34.1 g/dl (32.0-36.5); PLATELET COUNT, AUTOMATED 197 10^3/uL (150-450); RED BLOOD COUNT 4.11 10^6/uL (4.30-6.10); WHITE BLOOD COUNT 10.2 10^3/uL (4.0-10.0)
[2019-01-10 18:37] LABS: ERYTHROCYTE SEDIMENTATION RATE 96 mm/hr (0-15)
[2019-01-10 18:50] LABS: BLOOD UREA NITROGEN 16 MG/DL (7-18); CALCIUM LEVEL 7.3 MG/DL (8.5-10.1); CARBON DIOXIDE LEVEL 24 MEQ/L (21-32); CHLORIDE LEVEL 91 MEQ/L (98-107); CREATININE FOR GFR 1.45 MG/DL (0.70-1.30); GLOMERULAR FILTRATION RATE > 60.0 (>60); GLUCOSE, FASTING 622 MG/DL (70-100); POTASSIUM SERUM 3.9 MEQ/L (3.5-5.1); SODIUM LEVEL 129 MEQ/L (136-145)
[2019-01-10] MEDS ORDERED: INSULIN HUMAN REGULAR 100 UNITS in NS 99 ML IV SCH (18:56)
[2019-01-10] MEDS ORDERED: INSULIN IV RATE CHANGE DOCUMENTATION ML/HR XX SCH (19:00)
[2019-01-10 19:13] LABS: ACETONE/KETONE 40.22 MG/DL (<2.81)
[2019-01-10] MEDS ORDERED: CLINDAMYCIN 900 MG in APPROPRIATE DILUENT 1 EA IV ONE (19:15)
[2019-01-10 20:31] LABS: VENOUS BASE EXCESS 0.3 (-2.0-2.0); VENOUS HCO3 23.5 MEQ/L (23.0-27.0); VENOUS O2 SATURATION 95.7 % (60.0-80.0); VENOUS PARTIAL PRESSURE CO2 33.2 mmHg (38.0-50.0); VENOUS PH 7.467 UNITS (7.330-7.430); VENOUS STANDARD HCO3 24.7 MEQ/L; VENOUS TOTAL CO2 24.5 MEQ/L (24.0-28.0)
[2019-01-10 20:49] LABS: HEMOGLOBIN A1c 14.2 %
[2019-01-10 21:06] LABS: ALBUMIN 1.5 GM/DL (3.2-5.2); BILIRUBIN,DIRECT 0.1 MG/DL (0.0-0.2); BILIRUBIN,TOTAL 0.2 MG/DL (0.2-1.0); ETHYL ALCOHOL (ETHANOL) 0.007 % (0.000-0.010); MAGNESIUM LEVEL 1.8 MG/DL (1.8-2.4); PHOSPHORUS LEVEL 3.6 MG/DL (2.5-4.9); TOTAL PROTEIN 6.3 GM/DL (6.4-8.2)
[2019-01-10] MEDS ORDERED: CARV12.5 PO (21:21)
[2019-01-10] MEDS ORDERED: HYDR50TA70 PO (21:21)
[2019-01-10] MEDS ORDERED: NICO4GUM47 MT (21:21)
[2019-01-10] MEDS ORDERED: MAGN400T2 PO (21:21)
[2019-01-10] MEDS ORDERED: TRAZ1TAB10 PO (21:21)
[2019-01-10] MEDS ORDERED: POTA10TA14 PO (21:21)
[2019-01-10] MEDS ORDERED: OXAZ30CA2 PO (21:21)
[2019-01-10] MEDS ORDERED: FURO20TA2 PO (21:21)
[2019-01-10] MEDS ORDERED: QUET1TAB8 PO (21:21)
[2019-01-10] MEDS ORDERED: VITMTA PO (21:21)
[2019-01-10] MEDS ORDERED: FOLI1TAB11 PO (21:21)
[2019-01-10] MEDS ORDERED: TYLE650T35 PO (21:21)
[2019-01-10] MEDS ORDERED: THIA100T7 PO (21:21)
[2019-01-10] MEDS: ACETAMINOPHEN 650MG ER TAB (TYLENOL ARTHRITIS) PO SCH (22:00)
[2019-01-10 22:27] LABS: VENOUS BASE EXCESS 3.3 (-2.0-2.0); VENOUS HCO3 26.9 MEQ/L (23.0-27.0); VENOUS O2 SATURATION 99.4 % (60.0-80.0); VENOUS PARTIAL PRESSURE CO2 37.7 mmHg (38.0-50.0); VENOUS PARTIAL PRESSURE O2 227.5 mmHg (30.0-50.0); VENOUS PH 7.472 UNITS (7.330-7.430); VENOUS STANDARD HCO3 27.4 MEQ/L; VENOUS TOTAL CO2 28.1 MEQ/L (24.0-28.0)
[2019-01-10] MEDS: LEVEMIR (INSULIN DETEMIR) 1 UNITS/0.01ML SC SCH (22:30)
[2019-01-10] MEDS ORDERED: MAALOX 30 ML SUSP *UDC PO PRN (22:30)
[2019-01-10] MEDS ORDERED: traZODone 50 MG TAB PO PRN (22:30)
[2019-01-10] MEDS ORDERED: MOM 30ML SUSPENSION UDC PO PRN (22:30)
[2019-01-10] MEDS ORDERED: GLUCAGON FOR INJ 1 MG VIAL (J1610) SC PRN (22:45)
[2019-01-10] MEDS ORDERED: GLUCOSE 4 GM CHEW TABLET PO PRN (22:45)
[2019-01-10] MEDS ORDERED: DEXTROSE 50% 50 ML SYRINGE IV PRN (22:45)
[2019-01-10] MEDS: DIVALPROEX 250 MG TAB PO SCH (23:41)
[2019-01-10] MEDS: NS 0.45% 1,000 ML IV SCH (23:41)
[2019-01-11] MEDS ORDERED: QUEtiapine FUMARATE 200 MG TAB PO ONE (00:45)
[2019-01-11] MEDS ORDERED: PRAZOSIN 1 MG CAP PO ONE (00:45)
[2019-01-11] MEDS ORDERED: CARVedilol 12.5 MG TAB PO ONE (00:45)
[2019-01-11] MEDS ORDERED: OXAZEPAM 15 MG CAP PO ONE (00:45)
[2019-01-11] MEDS ORDERED: GABAPENTIN 300 MG CAP PO ONE (00:45)
--- NOTE | 2019-01-11 00:53 | HPEPDOC ---
General Date of Admission Jan 10, 2019 at 22:23 Date of Service: Jan 10, 2019 Chief Complaint The patient is a 48-year-old male admitted with a reason for visit of Abcess, Diabetes. History of Present Illness 48m with hx of dm, bipolar, and polysubstance abuse. Pt presents with left forearm pain for the past 3 days. He reports he was injecting cocaine into his wrist just prior to the pain starting. He states he hasnt injected drugs in the past and feels he is not very good at it. He denies fevers, sweats, chills, sob, urinary or bowel symptoms. a full ROS was performed and is negative except as above Home Medications Scheduled Acetaminophen (Tylenol Arthritis) 650 Mg Tablet.er, 650 MG PO Q8H, (Reported) Carvedilol (Carvedilol) 12.5 Mg Tablet, 25 MG PO BID, (Reported) Divalproex Sodium (Divalproex Sodium) 250 Mg Tablet.dr, 750 MG PO BID, (Reported) Folic Acid (Folic Acid) 1 Mg Tablet, 1 MG PO DAILY, (Reported) Furosemide (Furosemide) 20 Mg Tablet, 20 MG PO DAILY, (Reported) Gabapentin (Neurontin) 300 Mg Capsule, 600 MG PO TID, (Reported) Insulin Detemir (Levemir) 100 Unit/1 Ml Vial, 85 UNITS SC QHS, (Reported) Insulin Human Lispro (Humalog) 100 Unit/1 Ml Vial, 1 DOSE SC ACHS, (Reported) PER SLIDING SCALE Lisinopril (Lisinopril) 40 Mg Tab, 40 MG PO DAILY, (Reported) Magnesium Oxide (Magnesium Oxide) 400 Mg Tablet, 400 MG PO DAILY, (Reported) Mirtazapine (Mirtazapine) 45 Mg Tab.rapdis, 45 MG PO QHS, (Reported) Multivitamins (Thera M Plus Tablet) 1 Each Tablet, 1 TAB PO DAILY, (Reported) Oxazepam (Oxazepam) 30 Mg Capsule, 30 MG PO BID, (Reported) Paliperidone Palmitate (Invega Sustenna) 234 Mg/1.5 Ml Syringe, 234 MG IM QMONTH, (Reported) Potassium Chloride (Potassium Chloride) 10 Meq Tablet.er, 20 MEQ PO DAILY, (Reported) Prazosin Hcl (Prazosin HCl) 1 Mg Capsule, 4 MG PO QHS, (Reported) Quetiapine Fumarate (Quetiapine Fumarate) 400 Mg Tablet, 400 MG PO QHS, (Reported) Quetiapine Fumarate (Quetiapine Fumarate) 100 Mg Tablet, 100 MG PO DAILY, (Reported) Sertraline HCl (Sertraline HCl) 50 Mg Tablet, 150 MG PO DAILY, (Reported) Thiamine HCl (Thiamine HCl) 100 Mg Tablet, 100 MG PO DAILY, (Reported) Scheduled PRN Hydroxyzine HCl (Hydroxyzine HCl) 50 Mg Tablet, 50 MG PO Q6H PRN for ANXIETY/AGITATION, (Reported) Nicotine Polacrilex (Nicotine Gum) 4 Mg Gum, 4 MG MT Q2H PRN for SMOKING CESSATION, (Reported) Trazodone HCl (Trazodone HCl) 50 Mg Tablet, 50 MG PO QHS PRN for INSOMNIA, (Reported) Allergies Coded Allergies: No Known Allergies (Unverified , 10/19/18) Family History Significant Family History: No pertinent family hx Social History * Smoker: current smoker Alcohol: occationally Drugs: cocaine, other (omero) A-FIB/CHADSVASC A-FIB History Current/History of A-Fib/PAF?: No Current PO Anticoag Therapy: No Age/Risk Factor Scoring CHADSVASC: CHADSVASC Response (Comments) Value Age Risk Factor Age < 65 years old 0 Gender Risk Factor Male 0 Hx of CHF No 0 Hx of HTN Yes 1 Hx of Stroke/TIA/or VTE No 0 Hx of Diabetes Yes 1 Hx of Vascular Disease No 0 Total 2 Treatment Treatment ordered: NONE Reason Anticoagulant not given: Not indicated/[id number] Physical Examination General Exam: Positive: Alert, Cooperative, No Acute Distress Eye Exam: Positive: PERRLA, Conjunctiva & lids normal, EOMI; Negative: Sclera icteric ENT Exam: Positive: Atraumatic, Mucous membr. moist/pink, Pharynx Normal Neck Exam: Positive: Supple; Negative: JVD, thyromegaly Chest Exam: Positive: Clear to auscultation, Normal air movement Heart Exam: Positive: Rate Normal, Regular Rhythm, Normal S1, Normal S2; Negative: Murmurs, Rubs Abdomen Exam: Positive: Normal bowel sounds, Soft; Negative: Tenderness, Hepatospenomegaly Extremity Exam: Positive: Normal pulses; Negative: Clubbing, Cyanosis, Edema Skin Exam: Positive: Nl turgor and temperature, Other skin issue (track estrella); Negative: Breakdown Neuro Exam: Positive: Normal Gait, Normal Speech, Cranial Nerves 3-12 NL, Reflexes 2+ Psych Exam: Positive: Mental status NL, Mood NL, Oriented x 3 Vital Signs Vital Signs Date Time Temp Pulse Resp B/P (MAP) Pulse Ox O2 Delivery O2 Flow Rate FiO2 01/11/19 00:23 98.9 100 18 198/88 (124) 97 Room Air Laboratory Data Labs 24H Laboratory Tests 2 01/10/19 18:05: Nucleated Red Blood Cells % (auto) 0.0, Erythrocyte Sedimentation Rate 96H, Anion Gap 14, Glomerular Filtration Rate > 60.0, Blood Urea Nitrogen 16, Creatinine 1.45H, Sodium Level 129L, Potassium Level 3.9, Chloride Level 91L, Carbon Dioxide Level 24, Calcium Level 7.3L, C-Reactive Protein, Quantitative 11.10H, B-Hydroxybutyrate 40.22H 01/10/19 19:35: Bedside Glucose (Misc Panel) 582*H 01/10/19 19:55: Urine Color STRAW, Urine Appearance CLEAR, Urine pH 5.0, Urine Specific [place] 1.023, Urine Protein 2+H, Urine Glucose (UA) 3+H, Urine Ketones 1+H, Urine Blood 1+H, Urine Nitrite NEGATIVE, Urine Bilirubin NEGATIVE, Urine Urobilinogen 0.2, Urine Leukocyte Esterase NEGATIVE, Urine WBC (Auto) 2, Urine RBC (Auto) 3, Urine Hyaline Casts (Auto) 0, Urine Bacteria (Auto) NEGATIVE, Urine Squamous Epithelial Cells 0, Urine Mucus (Auto) SMALL, Urine Sperm (Auto) 01/10/19 20:18: POC Lactate (Misc Panel) 1.36, Blood Gas Bicarbonate Standard 24.7, Venous Blood pH 7.467H, Venous Blood Partial Pressure CO2 33.2L, Venous Blood Partial Pressure O2 74.0H, Venous Blood Total Carbon Dioxide 24.5, Venous Blood HCO3 23.5, Venous Blood Oxygen Saturation 95.7H, Venous Blood Base Excess 0.3, Estimated Mean Plasma Glucose 361H, Hemoglobin A1c 14.2, Osmolality 304H, Phosphorus Level 3.6, Magnesium Level 1.8, Aspartate Amino Transf (AST/SGOT) 34, Alanine Aminotransferase (ALT/SGPT) 64, Alkaline Phosphatase 170H, Total Bilirubin 0.2, Direct Bilirubin 0.1, Total Protein 6.3L, Albumin 1.5L, Albumin/Globulin Ratio 0.31L, Lipase 245, Ethyl Alcohol Level 0.007 01/10/19 20:59: Bedside Glucose (Misc Panel) 483H 01/10/19 22:01: Bedside Glucose (Misc Panel) 322H 01/10/19 22:08: Blood Gas Bicarbonate Standard 27.4, Venous Blood pH 7.472H, Venous Blood Partial Pressure CO2 37.7L, Venous Blood Partial Pressure O2 227.5H, Venous Blood Total Carbon Dioxide 28.1H, Venous Blood HCO3 26.9, Venous Blood Oxygen Saturation 99.4H, Venous Blood Base Excess 3.3H 01/10/19 23:26: Bedside Glucose (Misc Panel) 170H 01/11/19 00:16: Bedside Glucose (Misc Panel) 76 CBC/BMP Laboratory Tests 01/10/19 18:05 Red Blood Count 4.11 L, Mean Corpuscular Volume 82.0, Mean Corpuscular Hemoglobin 28.0, Mean Corpuscular Hemoglobin Concent 34.1, Red Cell Distribution Width 13.9, Calcium Level 7.3 L Assessment/Plan 48m p/w subcutaneous abscess abscess will continue clindamycin with bacid to be evaluated by surgery in am for I&D DM started on insulin drip by ed sugars now controlled resumed levemir monitor fingersticks with sliding scale coverage diabetic diet htn continue prazosin, coreg and lisinopril bipolar continue seroquel, oxepam pt on invega monthly Plan / VTE VTE Prophylaxis Ordered?: Yes JOHANNE FELDMAN MD Jan 11, 2019 00:53
[2019-01-11 01:18] LABS: BLOOD UREA NITROGEN 14 MG/DL (7-18); CALCIUM LEVEL 7.9 MG/DL (8.5-10.1); CARBON DIOXIDE LEVEL 27 MEQ/L (21-32); CHLORIDE LEVEL 100 MEQ/L (98-107); CREATININE FOR GFR 1.36 MG/DL (0.70-1.30); GLOMERULAR FILTRATION RATE > 60.0 (>60); GLUCOSE, FASTING 304 MG/DL (70-100); POTASSIUM SERUM 3.7 MEQ/L (3.5-5.1); SODIUM LEVEL 133 MEQ/L (136-145)
[2019-01-11] MEDS: CLINDAMYCIN 900 MG in APPROPRIATE DILUENT 1 EA IV SCH ×3 (03:55→19:43)
[2019-01-11] MEDS: ACETAMINOPHEN 650MG ER TAB (TYLENOL ARTHRITIS) PO SCH ×3 (05:50→21:13)
[2019-01-11] MEDS: HumaLOG INSULIN (NovoLOG) PER UNIT SC SCH ×4 (06:16→18:07)
[2019-01-11 06:45] LABS: VENOUS BASE EXCESS 1.9 (-2.0-2.0); VENOUS HCO3 26.2 MEQ/L (23.0-27.0); VENOUS O2 SATURATION 99.2 % (60.0-80.0); VENOUS PARTIAL PRESSURE CO2 39.9 mmHg (38.0-50.0); VENOUS PH 7.436 UNITS (7.330-7.430); VENOUS STANDARD HCO3 26.2 MEQ/L; VENOUS TOTAL CO2 27.5 MEQ/L (24.0-28.0)
[2019-01-11 06:50] LABS: HEMATOCRIT 30.2 % (42.0-52.0); HEMOGLOBIN 10.5 g/dl (13.5-17.5); MEAN CORPUSCULAR HEMOGLOBIN 27.7 pg (27.0-33.0); MEAN CORPUSCULAR HGB CONC 34.8 g/dl (32.0-36.5); MEAN CORPUSCULAR VOLUME 79.7 fl (80.0-96.0); PLATELET COUNT, AUTOMATED 188 10^3/uL (150-450); RED BLOOD COUNT 3.79 10^6/uL (4.30-6.10); WHITE BLOOD COUNT 11.2 10^3/uL (4.0-10.0)
[2019-01-11 07:09] LABS: BLOOD UREA NITROGEN 14 MG/DL (7-18); CALCIUM LEVEL 7.6 MG/DL (8.5-10.1); CARBON DIOXIDE LEVEL 27 MEQ/L (21-32); CHLORIDE LEVEL 100 MEQ/L (98-107); CREATININE FOR GFR 1.33 MG/DL (0.70-1.30); GLOMERULAR FILTRATION RATE > 60.0 (>60); GLUCOSE, FASTING 265 MG/DL (70-100); POTASSIUM SERUM 3.1 MEQ/L (3.5-5.1); SODIUM LEVEL 135 MEQ/L (136-145)
[2019-01-11] MEDS ORDERED: HumaLOG INSULIN (NovoLOG) PER UNIT SC SCH (07:30)
[2019-01-11] MEDS ORDERED: OXAZEPAM 15 MG CAP PO SCH (09:00)
[2019-01-11] MEDS ORDERED: POTASSIUM CHLORIDE 10 MEQ SR TABLET PO ONE (09:00)
[2019-01-11] MEDS ORDERED: GABAPENTIN 300 MG CAP PO SCH (09:00)
[2019-01-11] MEDS: HEPARIN SOD (PORCINE) 5000 UNITS/ML VIAL SC SCH ×2 (09:00→21:12)
[2019-01-11] MEDS ORDERED: CARVedilol 12.5 MG TAB PO SCH (09:00)
[2019-01-11] MEDS ORDERED: PERCOCET 5MG/325MG TAB PO PRN (09:30)
[2019-01-11] MEDS: PERCOCET 5MG/325MG TAB PO PRN (09:45)
[2019-01-11] MEDS: FOLIC ACID 1 MG TAB PO SCH (09:49)
[2019-01-11] MEDS: THIAMINE 100 MG TAB PO SCH (09:49)
[2019-01-11] MEDS: SERTRALINE HCL 50 MG TAB PO SCH (09:49)
[2019-01-11] MEDS: MULTIVITAMINS/MINERALS THERAP 1 TAB PO SCH (09:50)
[2019-01-11] MEDS: QUEtiapine FUMARATE 100 MG TAB PO SCH (09:50)
[2019-01-11] MEDS: LACTOBACILLUS ACIDOPHILUS CAP (BACID) PO SCH (09:50)
[2019-01-11] MEDS: DIVALPROEX 250 MG TAB PO SCH ×2 (09:50→21:11)
[2019-01-11] MEDS: LISINOPRIL 40 MG TAB PO SCH (09:50)
[2019-01-11] MEDS: CARVedilol 12.5 MG TAB PO SCH ×2 (09:51→21:15)
[2019-01-11] MEDS: OXAZEPAM 15 MG CAP PO SCH ×2 (09:51→21:11)
[2019-01-11] MEDS: NS 0.45% 1,000 ML IV SCH ×2 (09:51→19:43)
[2019-01-11] MEDS: GABAPENTIN 300 MG CAP PO SCH ×3 (09:52→21:11)
[2019-01-11 14:00] VITALS: BP 160/91
[2019-01-11] MEDS: LEVEMIR (INSULIN DETEMIR) 1 UNITS/0.01ML SC SCH (21:00)
[2019-01-11] MEDS ORDERED: QUEtiapine FUMARATE 200 MG TAB PO SCH (21:00)
[2019-01-11] MEDS ORDERED: PRAZOSIN 1 MG CAP PO SCH (21:00)
[2019-01-11] MEDS: QUEtiapine FUMARATE 200 MG TAB PO SCH (21:12)
[2019-01-11] MEDS: PRAZOSIN 1 MG CAP PO SCH (21:15)
[2019-01-11 22:00] VITALS: BP 154/81
--- NOTE | 2019-01-11 22:11 | CR ---
DATE OF CONSULTATION: 01/11/2019 REASON FOR CONSULTATION: Left arm abscess / swelling. HISTORY OF PRESENT ILLNESS: The patient is a 48-year-old IV drug abuser who injected his left arm and has developed a swelling in his left arm for the last 3 days. He had some minimal numbness in his left hand, had some pain with movement of his hand when he first came into the emergency room, was given a little bit of pain medication and after this had much more active motion and ability to move his hand and was not complaining of any numbness. He had good capillary refill and essentially had no evidence of a compartment syndrome at that time and thus ultrasound was performed, revealed a possible abscess in the deep subcutaneous tissue. The provider felt that there was no superficial area that was easily identifiable. On his exam the entire forearm was swollen and thus was not pointing at this time. The patient was admitted to the hospital service overnight and I was asked to see him today for additional recommendations and at the time that he was seen last night I recommended an ultrasound-guided aspiration / drainage of this today. As of yet this has not been ordered so we will put that on the schedule. The patient's past medical history is significant for history of polysubstance abuse, history of polypharmacy, history of bipolar disorder, diabetes mellitus. MEDICATIONS: Include: - Tylenol - carvedilol - divalproex - folic acid - Lasix - Neurontin - Levemir insulin - lisinopril - magnesium oxide - mirtazapine - Thera M Plus - oxazepam - Invega Sustenna - potassium - prazosin - quetiapine fumarate - sertraline - thiamine - also he has as needed hydroxyzine, nicotine, and trazodone PHYSICAL EXAMINATION: Reveals a somewhat sedated 28-year-old who is disheveled. Otherwise HEENT is unremarkable. Lungs are clear anteriorly. Heart is regular. Left forearm reveals some swelling throughout the arm. He does not have his arm up on a pillow at this time or elevated thus we did get him the pillow to put his arm on. He has good capillary refill distally and he is able to move his fingers without significant difficulty and does not complain of any numbness or tingling in the hand at this time. IMPRESSION AND PLAN: The patient has some swelling in the arm and I do feel that he needs to elevate his arm much more than it is now, continue on the antibiotics and I have ordered an ultrasound-guided aspiration / drainage of the abscess. Will see what the results of this are, hopefully we can get a better culture to determine how to modify the antibiotics. Otherwise there is not a great demarcation of site to determine where to make an incision and drainage of this given the amount of edema throughout the subcutaneous tissue. Thus at this point will continue to encourage arm elevation and will see how he is doing over the next 12-24 hours.
[2019-01-12] MEDS: NS 0.45% 1,000 ML IV SCH ×2 (03:46→13:39)
[2019-01-12] MEDS: CLINDAMYCIN 900 MG in APPROPRIATE DILUENT 1 EA IV SCH ×3 (03:46→21:11)
[2019-01-12] MEDS: ACETAMINOPHEN 650MG ER TAB (TYLENOL ARTHRITIS) PO SCH ×3 (05:15→21:14)
[2019-01-12 06:00] VITALS: BP 149/84
[2019-01-12] MEDS: HumaLOG INSULIN (NovoLOG) PER UNIT SC SCH ×5 (06:00→21:14)
[2019-01-12 08:17] LABS: HEMATOCRIT 30.8 % (42.0-52.0); HEMOGLOBIN 10.6 g/dl (13.5-17.5); MEAN CORPUSCULAR HEMOGLOBIN 27.8 pg (27.0-33.0); MEAN CORPUSCULAR HGB CONC 34.4 g/dl (32.0-36.5); MEAN CORPUSCULAR VOLUME 80.8 fl (80.0-96.0); PLATELET COUNT, AUTOMATED 188 10^3/uL (150-450); RED BLOOD COUNT 3.81 10^6/uL (4.30-6.10); WHITE BLOOD COUNT 13.2 10^3/uL (4.0-10.0)
[2019-01-12] MEDS: HEPARIN SOD (PORCINE) 5000 UNITS/ML VIAL SC SCH ×2 (08:18→21:13)
[2019-01-12 08:50] LABS: BLOOD UREA NITROGEN 15 MG/DL (7-18); CALCIUM LEVEL 7.4 MG/DL (8.5-10.1); CARBON DIOXIDE LEVEL 27 MEQ/L (21-32); CHLORIDE LEVEL 102 MEQ/L (98-107); CREATININE FOR GFR 1.49 MG/DL (0.70-1.30); GLOMERULAR FILTRATION RATE > 60.0 (>60); GLUCOSE, FASTING 154 MG/DL (70-100); POTASSIUM SERUM 3.9 MEQ/L (3.5-5.1); SODIUM LEVEL 136 MEQ/L (136-145)
[2019-01-12] MEDS ORDERED: LIDOCAINE 1% MDV 20ML VIAL As Ordered ONE (08:53)
[2019-01-12] MEDS: DIVALPROEX 250 MG TAB PO SCH ×2 (09:53→21:15)
[2019-01-12] MEDS: MULTIVITAMINS/MINERALS THERAP 1 TAB PO SCH (09:53)
[2019-01-12] MEDS: GABAPENTIN 300 MG CAP PO SCH ×3 (09:53→21:15)
[2019-01-12] MEDS: PERCOCET 5MG/325MG TAB PO PRN (09:53)
[2019-01-12] MEDS: QUEtiapine FUMARATE 100 MG TAB PO SCH (09:54)
[2019-01-12] MEDS: FOLIC ACID 1 MG TAB PO SCH (09:54)
[2019-01-12] MEDS: SERTRALINE HCL 50 MG TAB PO SCH (09:54)
[2019-01-12] MEDS: LACTOBACILLUS ACIDOPHILUS CAP (BACID) PO SCH (09:56)
[2019-01-12] MEDS: LISINOPRIL 40 MG TAB PO SCH (09:56)
[2019-01-12] MEDS: CARVedilol 12.5 MG TAB PO SCH ×2 (09:56→21:16)
[2019-01-12] MEDS: OXAZEPAM 15 MG CAP PO SCH (09:56)
[2019-01-12] MEDS: THIAMINE 100 MG TAB PO SCH (09:57)
[2019-01-12] MEDS: NALOXONE INJ 0.4 MG/1 ML VIAL (J2310) IV PRN ×3 (12:35→13:34)
[2019-01-12 12:40] VITALS: BP 138/69
[2019-01-12 14:00] VITALS: BP 155/76
--- NOTE | 2019-01-12 14:10 | IPNPDOC ---
Subjective Date Seen The patient was seen on 01/12/19. Subjective Chief Complaint/HPI Patient seen and examined at the bedside this morning. He was initially noted to be drowsy following administration of Percocet and Serax. However, the patient's baseline mentation returned once he was given a dose of Narcan. Otherwise, the patient states that his left arm is feeling better following interventional radiology drainage. Objective Physical Examination General Exam: Positive: Alert, Cooperative, No Acute Distress Eye Exam: Negative: Sclera icteric ENT Exam: Positive: Atraumatic, Mucous membr. moist/pink Neck Exam: Negative: JVD Chest Exam: Positive: Clear to auscultation, Normal air movement Heart Exam: Positive: Rate Normal, Regular Rhythm, Normal S1, Normal S2 Abdomen Exam: Positive: Soft; Negative: Tenderness, Hepatospenomegaly Extremity Exam: Positive: Normal pulses Skin Exam: Positive: Other skin issue (left upper extremity noted to be swollen. However, patient notable to have good capillary reflexes, intact sensation, and palpable pulses distally.) Neuro Exam: Positive: Normal Gait, Normal Speech Psych Exam: Positive: Mental status NL, Mood NL, Oriented x 3 Assessment /Plan Plan/VTE VTE Prophylaxis Ordered?: Yes Plan LUE Abscess/Swelling 2/2 IVDA U/S of the Ext notable for 3.8 x 2.7 x 6 cm abscess on admission Blood cultures unrevealing thus far s/p drainage by IR this AM Wound cultures pending Cont IV clindamycin General Surgery on board--input appreciated Episode of drowsiness this a.m. Likely secondary to combination of Percocet and Serax given this morning --- the patient's mentation returned back to baseline with administration of Narcan. We will discontinue opioid therapy for now Diabetes mellitus Continue insulin sliding scale, Levemir Chronic kidney disease stage III Serum creatinine at baseline Peripheral neuropathy Continue gabapentin Hypertension Continue regimen as ordered Anxiety/depression Continue sertraline, Seroquel, Depakote DVT prophylaxis Heparin subcutaneous VS, I&O, 24H, Fishbone Vital Signs/I&O Vital Signs Date Time Temp Pulse Resp B/P (MAP) Pulse Ox O2 Delivery O2 Flow Rate FiO2 01/12/19 12:40 99.4 74 12 138/69 (92) 97 01/11/19 13:31 Room Air I&O- Last 24 Hours up to 6 AM 01/12/19 05:59 Intake Total 650 ml Output Total 1000 ml Balance -350 ml Laboratory Data 24H LABS Laboratory Tests 2 01/11/19 17:12: Bedside Glucose (Misc Panel) 269H 01/12/19 00:12: Bedside Glucose (Misc Panel) 99 01/12/19 06:16: Bedside Glucose (Misc Panel) 169H 01/12/19 07:53: Nucleated Red Blood Cells % (auto) 0.0, Anion Gap 7L, Glomerular Filtration Rate > 60.0, Blood Urea Nitrogen 15, Creatinine 1.49H, Sodium Level 136, Potassium Level 3.9#, Chloride Level 102, Carbon Dioxide Level 27, Calcium Level 7.4L, C- Reactive Protein, Quantitative 15.40H 01/12/19 11:48: Bedside Glucose (Misc Panel) 284H CBC/BMP Laboratory Tests 01/12/19 07:53 Red Blood Count 3.81 L, Mean Corpuscular Volume 80.8, Mean Corpuscular Hemoglobin 27.8, Mean Corpuscular Hemoglobin Concent 34.4, Red Cell Distribution Width 13.7, Calcium Level 7.4 L Microbiology Microbiology 01/11/19 Blood Culture - Preliminary, Resulted No growth after 24 hours . All specim... 01/11/19 Blood Culture - Preliminary, Resulted No growth after 24 hours . All specim... 01/12/19 Gram Stain - Final, Resulted 01/12/19 Abscess Culture, Resulted Pending 01/12/19 Anaerobic Culture, Resulted Pending PEDRO LUIS SORENSEN MD Jan 12, 2019 14:10
--- NOTE | 2019-01-12 18:09 | IPN ---
DATE: 01/12/2019 Patient had an increasing white count 13.2 this morning, had an ultrasound-guided aspiration of the fluid, and it is hard to know for sure, but it sounds as though the patient had a fair bit of fluid out of this site. Although when I look, it seems as though it is describing the fluid collection intramuscular, which would make a lot more sense on his physical exam at this time. In any case, the patient's swelling has significantly improved and more importantly, his temperature has not spiked again. Once again, his white count did bump up a little bit, but he seems to be doing better at lunch today and he is able to use both hands quite well while eating. His swelling and his edema in his hand, forearm is substantially better. There is not a significant amount of erythema, and it is mostly just indurated tissue. It is tender but I am not feeling a true abscess pocket coming to a "head." IMPRESSION AND PLAN: The patient has some cultures hopefully that will help modify the antibiotic regimen, but with his significant improvement, I anticipate he should continue to do the same. However, my concern is that if he does not have progressive improvement, and the drainage appeared to be an intramuscular drainage of an abscess cavity, I would recommend that orthopedics evaluate him should this not continue to improve, given that it may require a fasciotomy and drainage deeper structures. But, once again, at this point, he seems to be making some good progress, seems to be improving. Clinically, he states that he has severe pain, but he is obviously much more comfortable than he was yesterday. He is obviously moving around and using his hand without difficulty and without discomfort, showing significant improvement. Thus, from a general surgery standpoint, Dr. Doshi is around this weekend should you have some questions. However, as above, if he continues to improve, should be able to be discharged home when stable. My concern with his compliance issue is that he may not take antibiotics, and you may have to keep him the weekend just with IV antibiotics.
[2019-01-12] MEDS: PRAZOSIN 1 MG CAP PO SCH (21:12)
[2019-01-12] MEDS: LEVEMIR (INSULIN DETEMIR) 1 UNITS/0.01ML SC SCH (21:14)
[2019-01-12] MEDS: QUEtiapine FUMARATE 200 MG TAB PO SCH (21:15)
[2019-01-12 22:00] VITALS: BP 143/78
[2019-01-13] MEDS: CLINDAMYCIN 900 MG in APPROPRIATE DILUENT 1 EA IV SCH ×3 (03:33→20:13)
[2019-01-13] MEDS: NS 0.45% 1,000 ML IV SCH (03:33)
[2019-01-13] MEDS: ACETAMINOPHEN 650MG ER TAB (TYLENOL ARTHRITIS) PO SCH ×3 (05:00→21:02)
[2019-01-13 06:00] VITALS: BP 130/62
[2019-01-13 06:46] LABS: HEMATOCRIT 28.8 % (42.0-52.0); HEMOGLOBIN 9.6 g/dl (13.5-17.5); MEAN CORPUSCULAR HEMOGLOBIN 27.7 pg (27.0-33.0); MEAN CORPUSCULAR HGB CONC 33.3 g/dl (32.0-36.5); PLATELET COUNT, AUTOMATED 181 10^3/uL (150-450); RED BLOOD COUNT 3.47 10^6/uL (4.30-6.10); WHITE BLOOD COUNT 13.1 10^3/uL (4.0-10.0)
[2019-01-13 07:06] LABS: CALCIUM LEVEL 7.7 MG/DL (8.5-10.1); POTASSIUM SERUM 3.4 MEQ/L (3.5-5.1)
[2019-01-13] MEDS: HEPARIN SOD (PORCINE) 5000 UNITS/ML VIAL SC SCH ×2 (08:21→20:15)
[2019-01-13] MEDS: GABAPENTIN 300 MG CAP PO SCH ×3 (08:21→20:14)
[2019-01-13] MEDS: THIAMINE 100 MG TAB PO SCH (08:22)
[2019-01-13] MEDS: DIVALPROEX 250 MG TAB PO SCH ×2 (08:22→20:14)
[2019-01-13] MEDS: MULTIVITAMINS/MINERALS THERAP 1 TAB PO SCH (08:22)
[2019-01-13] MEDS: HumaLOG INSULIN (NovoLOG) PER UNIT SC SCH ×4 (08:22→21:02)
[2019-01-13] MEDS: FOLIC ACID 1 MG TAB PO SCH (08:22)
[2019-01-13] MEDS: LACTOBACILLUS ACIDOPHILUS CAP (BACID) PO SCH (08:23)
[2019-01-13] MEDS: CARVedilol 12.5 MG TAB PO SCH ×2 (08:23→20:14)
[2019-01-13] MEDS: SERTRALINE HCL 50 MG TAB PO SCH (08:23)
[2019-01-13] MEDS: QUEtiapine FUMARATE 100 MG TAB PO SCH (08:27)
[2019-01-13 08:28] LABS: C REACTIVE PROTEIN QUANTITATIV 18.1 MG/DL (0.00-0.30)
[2019-01-13] MEDS: LR 1,500 ML IV SCH ×2 (08:28→18:34)
[2019-01-13] MEDS ORDERED: POTASSIUM CHLORIDE 10 MEQ SR TABLET PO ONE (08:30)
[2019-01-13 10:48] LABS: ABG BASE EXCESS 2.8 (-2.0-2.0); ABG HCO3 27.6 MEQ/L (22.0-26.0); ABG O2 SATURATION 98.1 % (95.0-99.0); ABG PARTIAL PRESSURE CO2 43.7 mmHg (35.0-45.0); ABG PARTIAL PRESSURE O2 105.4 mmHg (75.0-100.0); ABG pH (ARTERIAL) 7.419 UNITS (7.350-7.450)
[2019-01-13] MEDS ORDERED: DEXTROSE 50% 50 ML SYRINGE IV STA ×2 (10:49)
[2019-01-13 12:24] VITALS: BP 134/65
--- NOTE | 2019-01-13 13:58 | IPNPDOC ---
Subjective Date Seen The patient was seen on 01/13/19. Subjective Chief Complaint/HPI Patient seen and examined at the bedside. Patient was noted to be diaphoretic and drowsy this morning. Blood sugar level was noted to be 24. He was given dextrose and his neurological status immediately improved thereafter. Objective Physical Examination General Exam: Positive: Alert, Cooperative, No Acute Distress Eye Exam: Negative: Sclera icteric ENT Exam: Positive: Atraumatic, Mucous membr. moist/pink Neck Exam: Negative: JVD Chest Exam: Positive: Clear to auscultation, Normal air movement Heart Exam: Positive: Rate Normal, Regular Rhythm, Normal S1, Normal S2 Abdomen Exam: Positive: Soft; Negative: Tenderness, Hepatospenomegaly Extremity Exam: Positive: Normal pulses Skin Exam: Positive: Other skin issue (left upper extremity noted to be swollen. However, patient notable to have good capillary reflexes, intact sensation, and palpable pulses distally.) Neuro Exam: Positive: Normal Gait, Normal Speech Psych Exam: Positive: Mental status NL, Mood NL, Oriented x 3 Assessment /Plan Plan/VTE VTE Prophylaxis Ordered?: Yes Plan LUE Abscess/Swelling 2/2 IVDA U/S of the Ext notable for 3.8 x 2.7 x 6 cm abscess on admission Blood cultures unrevealing thus far s/p drainage by IR on 01/12 Wound cultures pending Cont IV clindamycin LUE swelling appears improved, strong distal pulses and capillary refill. Patient also endorses improved pain. General Surgery on board--input appreciated Episode of drowsiness this a.m. Blood sugar noted to be 24---immediate improvement following dextrose administration We will adjust insulin as the patient's PO intake has been decreased. Diabetes mellitus Continue insulin sliding scale, Levemir Chronic kidney disease stage III Serum creatinine at baseline Peripheral neuropathy Continue gabapentin Hypertension Continue regimen as ordered Anxiety/depression Continue sertraline, Seroquel, Depakote DVT prophylaxis Heparin subcutaneous VS, I&O, 24H, Fishbone Vital Signs/I&O Vital Signs Date Time Temp Pulse Resp B/P (MAP) Pulse Ox O2 Delivery O2 Flow Rate FiO2 01/13/19 12:24 72 21 134/65 95 3.0 01/13/19 06:00 99.3 01/11/19 13:31 Room Air I&O- Last 24 Hours up to 6 AM 01/13/19 06:00 Intake Total 2380 ml Output Total 1100 ml Balance 1280 ml Laboratory Data 24H LABS Laboratory Tests 2 01/12/19 17:23: Bedside Glucose (Misc Panel) 339H 01/12/19 21:04: Bedside Glucose (Misc Panel) 372H 01/13/19 05:26: Nucleated Red Blood Cells % (auto) 0.0, Anion Gap 6L, Glomerular Filtration Rate 46.0L, Blood Urea Nitrogen 26#H, Creatinine 2.00H, Sodium Level 135L, Potassium Level 3.4L, Chloride Level 103, Carbon Dioxide Level 26, Calcium Level 7.7L, C-Reactive Protein, Quantitative 18.10H 01/13/19 10:30: Lactic Acid Level 1.2 01/13/19 10:31: Bedside Glucose (Misc Panel) 24*L 01/13/19 10:37: Bedside Glucose (Misc Panel) 378H 01/13/19 10:38: Blood Gas Bicarbonate Standard 27.0H, Arterial Blood pH 7.419, Arterial Blood Partial Pressure CO2 43.7, Arterial Blood Partial Pressure O2 105.4H, Arterial Blood Total CO2 29.0, Arterial Blood HCO3 27.6H, Arterial Blood Base Excess 2.8H, Arterial Blood Oxygen Saturation 98.1 01/13/19 11:28: Bedside Glucose (Misc Panel) 224H CBC/BMP Laboratory Tests 01/13/19 05:26 Red Blood Count 3.47 L, Mean Corpuscular Volume 83.0, Mean Corpuscular Hemoglobin 27.7, Mean Corpuscular Hemoglobin Concent 33.3, Red Cell Distribution Width 13.8, Calcium Level 7.7 L Microbiology Microbiology 01/11/19 Blood Culture - Preliminary, Resulted No Growth after 48 hours. All Specime... 01/11/19 Blood Culture - Preliminary, Resulted No Growth after 48 hours. All Specime... 01/12/19 Gram Stain - Final, Resulted 01/12/19 Abscess Culture, Resulted Pending 01/12/19 Anaerobic Culture, Resulted Pending PEDRO LUIS SORENSEN MD Jan 13, 2019 13:58
[2019-01-13 14:00] VITALS: BP 128/73
[2019-01-13] MEDS: PRAZOSIN 1 MG CAP PO SCH (20:13)
[2019-01-13] MEDS: QUEtiapine FUMARATE 200 MG TAB PO SCH (20:13)
[2019-01-13] MEDS ORDERED: LEVEMIR (INSULIN DETEMIR) 1 UNITS/0.01ML SC SCH (21:00)
[2019-01-13 22:00] VITALS: BP 157/77
[2019-01-14] VITALS (9 sets, daily range): BP systolic 133–173; BP diastolic 50–98
[2019-01-14] MEDS: CLINDAMYCIN 900 MG in APPROPRIATE DILUENT 1 EA IV SCH ×3 (04:18→20:24)
[2019-01-14] MEDS: ACETAMINOPHEN 650MG ER TAB (TYLENOL ARTHRITIS) PO SCH ×3 (04:57→21:16)
[2019-01-14 06:08] LABS: HEMATOCRIT 27.6 % (42.0-52.0); HEMOGLOBIN 9.3 g/dl (13.5-17.5); MEAN CORPUSCULAR HGB CONC 33.7 g/dl (32.0-36.5); PLATELET COUNT, AUTOMATED 180 10^3/uL (150-450); RED BLOOD COUNT 3.45 10^6/uL (4.30-6.10); WHITE BLOOD COUNT 13.6 10^3/uL (4.0-10.0)
[2019-01-14 06:29] LABS: CALCIUM LEVEL 7.6 MG/DL (8.5-10.1); CREATININE FOR GFR 1.87 MG/DL (0.70-1.30); GLOMERULAR FILTRATION RATE 49.8 (>60); POTASSIUM SERUM 3.3 MEQ/L (3.5-5.1)
[2019-01-14] MEDS: HumaLOG INSULIN (NovoLOG) PER UNIT SC SCH (07:09)
[2019-01-14] MEDS ORDERED: POTASSIUM CHLORIDE 10 MEQ SR TABLET PO ONE (07:45)
[2019-01-14] MEDS: HEPARIN SOD (PORCINE) 5000 UNITS/ML VIAL SC SCH ×2 (08:01→21:18)
[2019-01-14] MEDS: DIVALPROEX 250 MG TAB PO SCH ×2 (08:01→21:16)
[2019-01-14] MEDS: GABAPENTIN 300 MG CAP PO SCH ×3 (08:01→21:16)
[2019-01-14] MEDS: THIAMINE 100 MG TAB PO SCH (08:02)
[2019-01-14] MEDS: CARVedilol 12.5 MG TAB PO SCH ×2 (08:02→21:17)
[2019-01-14] MEDS: SERTRALINE HCL 50 MG TAB PO SCH (08:02)
[2019-01-14] MEDS: LACTOBACILLUS ACIDOPHILUS CAP (BACID) PO SCH (08:02)
[2019-01-14] MEDS: MULTIVITAMINS/MINERALS THERAP 1 TAB PO SCH (08:02)
[2019-01-14] MEDS: FOLIC ACID 1 MG TAB PO SCH (08:02)
[2019-01-14] MEDS: QUEtiapine FUMARATE 100 MG TAB PO SCH (08:05)
[2019-01-14 08:11] LABS: C REACTIVE PROTEIN QUANTITATIV 18.1 MG/DL (0.00-0.30)
[2019-01-14] MEDS ORDERED: NICOTINE 21MG/24HR 1 EA TRANSDERMAL TD SCH (09:00)
[2019-01-14] MEDS: MORPHINE 4 MG/ML 1ML VIAL/SYRINGE (J2270) IV PRN (11:17)
[2019-01-14] MEDS: NS 1,000 ML IV SCH ×2 (11:18→18:02)
--- NOTE | 2019-01-14 11:29 | REP ---
HISTORY: Pain over a palpable abnormality in the left forearm. Multiple ultrasonographic images over the region of interest show a complex appearing mass which measures 6.9 x 2 x 3.8 cm. The exact etiology of this is uncertain. This could represent a hematoma and/or an abscess. This needs to be correlated clinically. Electronically Signed by Bobby Baez DO 01/14/2019 11:33 A
--- NOTE | 2019-01-14 11:54 | IPNPDOC ---
Subjective Date Seen The patient was seen on 01/14/19. Subjective Chief Complaint/HPI Patient seen and examined at the bedside. Reports that his left upper extremity is more painful this morning. Denies any numbness/tingling, and continues to have intact sensation, distal pulses, and capillary refill. Repeat ultrasound of the left upper extremity ordered. Objective Physical Examination General Exam: Positive: Alert, Cooperative, No Acute Distress Eye Exam: Negative: Sclera icteric ENT Exam: Positive: Atraumatic, Mucous membr. moist/pink Neck Exam: Negative: JVD Chest Exam: Positive: Clear to auscultation, Normal air movement Heart Exam: Positive: Rate Normal, Regular Rhythm, Normal S1, Normal S2 Abdomen Exam: Positive: Soft; Negative: Tenderness, Hepatospenomegaly Extremity Exam: Positive: Normal pulses Skin Exam: Positive: Other skin issue (left upper extremity noted to be swollen, and more painful this morning. However, patient notable to have good capillary reflexes, intact sensation, and palpable pulses distally.) Neuro Exam: Positive: Normal Gait, Normal Speech Psych Exam: Positive: Mental status NL, Mood NL, Oriented x 3 Assessment /Plan Plan/VTE VTE Prophylaxis Ordered?: Yes Plan LUE Abscess/Swelling 2/ IVDA U/S of the Ext notable for 3.8 x 2.7 x 6 cm abscess on admission s/p drainage by IR on 01/12 Blood cultures unrevealing thus far Wound cultures pending Cont IV Rocephin Patient complaining that the LUE pain is worse this AM. WBC and CRP markers remain persistently elevated. Patient continues to have strong distal pulses and capillary refill. Repeat U/S of the LUE noted, we have made the patient NPO General Surgery on board--I have reached out to Dr. Doshi of Gen Surg who is aviation maintenance instructor this weekend for Dr. Pike, and he will re-evaluate the patient today. Diabetes mellitus Continue insulin sliding scale, Levemir adjusted for NPO status Chronic kidney disease stage III Serum creatinine at baseline Peripheral neuropathy Continue gabapentin Hypertension Continue regimen as ordered Anxiety/depression Continue sertraline, Seroquel, Depakote DVT prophylaxis Heparin subcutaneous VS, I&O, 24H, Fishbone Vital Signs/I&O Vital Signs Date Time Temp Pulse Resp B/P (MAP) Pulse Ox O2 Delivery O2 Flow Rate FiO2 8/11/19 11:17 18 01/14/19 08:02 98 159/73 01/14/19 06:00 99.3 99 01/13/19 12:24 3.0 01/11/19 13:31 Room Air I&O- Last 24 Hours up to 6 AM 01/14/19 06:00 Intake Total 4040 ml Output Total 1150 ml Balance 2890 ml Laboratory Data 24H LABS Laboratory Tests 2 01/13/19 16:58: Bedside Glucose (Misc Panel) 208H 01/13/19 20:14: Bedside Glucose (Misc Panel) 339H 01/14/19 05:30: Nucleated Red Blood Cells % (auto) 0.0, Anion Gap 7L, Glomerular Filtration Rate 49.8L, Blood Urea Nitrogen 25H, Creatinine 1.87H, Sodium Level 137, Potassium Level 3.3L, Chloride Level 105, Carbon Dioxide Level 25, Calcium Level 7.6L, C-Reactive Protein, Quantitative 18.10H 01/14/19 11:37: Bedside Glucose (Misc Panel) 148H CBC/BMP Laboratory Tests 01/14/19 05:30 Red Blood Count 3.45 L, Mean Corpuscular Volume 80.0, Mean Corpuscular Hemoglobin 27.0, Mean Corpuscular Hemoglobin Concent 33.7, Red Cell Distribution Width 13.6, Calcium Level 7.6 L Microbiology Microbiology 01/11/19 Blood Culture - Preliminary, Resulted No Growth after 72 hours. All specime... 01/11/19 Blood Culture - Preliminary, Resulted No Growth after 72 hours. All specime... 01/12/19 Gram Stain - Final, Resulted 01/12/19 Abscess Culture, Resulted Pending 01/12/19 Anaerobic Culture, Resulted Pending PEDRO LUIS SORENSEN MD Jan 14, 2019 11:54
--- NOTE | 2019-01-14 12:12 | IPNPDOC ---
Subjective General Date/Time Seen The patient was seen on 01/14/19 at 12:07. Subject Chief Complaint/History The patient is a 48-year-old male admitted with a reason for visit of Abcess, Diabetes. Patient is being admitted to the hospital for left arm swelling and abscess since evening. An attempt on percutaneous drainage or abscess done Tuesday and interventional radiology with some resolution of the erythema but no resolution of the swelling and patient continues to complain of arm swelling and pain. The ultrasound was done today and I was asked by Dr. Beckham to reevaluate the patient for possible incision and drainage. Current Medications Current Medications Current Medications Medications (Trade) Dose Ordered Sig/Tee Route PRN Reason Start Time Stop Time Status Last Admin Dose Admin Acetaminophen (Tylenol Arthritis Er) 650 mg Q8H PO 01/10/19 22:00 01/14/19 04:57 Al Hydrox/Mg Hydrox/Simethicone (Mylanta) 30 ml DAILYPRN PRN PO DYSPEPSIA 01/10/19 22:30 Carvedilol (COReg) 25 mg BID PO 01/11/19 09:00 01/11/19 09:00 DC Carvedilol (COReg) 25 mg BID PO 01/11/19 09:00 01/14/19 08:02 Clindamycin Phosphate 900 mg/ IV Miscellaneous Supplies 50 ml @ 50 mls/hr Q8H IV 01/11/19 04:00 01/14/19 11:18 Dextrose (Dextrose 50%) 25 ml ASDIRECTED PRN IV SEE LABEL COMMENTS 01/10/19 22:45 Dextrose (Dextrose 50%) 50 ml STAT STAT IV 01/13/19 10:49 01/13/19 10:51 DC 01/13/19 10:55 Dextrose (Dextrose 50%) 50 ml STAT STAT IV 01/13/19 10:49 01/13/19 10:54 DC 01/13/19 10:57 Divalproex Sodium (Depakote) 750 mg BID PO 01/10/19 22:30 01/14/19 08:01 Folic Acid (Folic Acid) 1 mg DAILY PO 01/11/19 09:00 01/14/19 08:02 Gabapentin (Neurontin) 600 mg TID PO 01/11/19 09:00 01/11/19 09:00 DC Gabapentin (Neurontin) 600 mg TID PO 01/11/19 09:00 01/14/19 08:01 Glucagon (Glucagon) 1 mg ASDIRECTED PRN SC SEE LABEL COMMENTS 01/10/19 22:45 Glucose (Glucose) 16 GM ASDIRECTED PRN PO SEE LABEL COMMENTS 01/10/19 22:45 Heparin Sodium (Porcine) (Heparin) 5,000 units Q12H SC 01/11/19 09:00 01/14/19 08:01 Home Med (Med Rec Complete!) ASDIRECTED XX 01/10/19 21:30 01/10/19 21:32 DC Insulin Detemir (Levemir Insulin) 40 units QHS MT 01/13/19 21:00 01/14/19 09:31 DC 01/13/19 21:02 Insulin Detemir (Levemir Insulin) 85 units QHS MT 01/10/19 22:30 01/13/19 13:59 DC 01/12/19 21:14 Insulin Human Lispro (HumaLOG INSULIN) SEE PROTOCOL TABLE AC MT 01/12/19 12:00 01/14/19 09:31 DC 01/13/19 08:22 Insulin Human Lispro (HumaLOG INSULIN) SEE PROTOCOL TABLE QHS MT 01/12/19 21:00 01/14/19 09:31 DC 01/13/19 21:02 Insulin Human Lispro (HumaLOG INSULIN) See Protocol Table AC MT 01/11/19 07:30 01/11/19 07:30 DC Insulin Human Lispro (HumaLOG INSULIN) See Protocol Table Q6H MT 01/11/19 00:00 01/12/19 11:46 DC 01/11/19 18:07 Insulin Human Regular 100 units/ Sodium Chloride 100 ml @ 8.1 mls/hr [id number] IV 01/10/19 18:56 01/10/19 23:55 DC 01/10/19 19:35 Lactated Ringer's 1,500 ml @ 100 mls/hr Q15H IV 01/13/19 08:30 01/13/19 23:29 DC 01/13/19 18:34 Lactobacillus Acidophilus (Bacid) 1 ea DAILY PO 01/11/19 09:00 01/14/19 08:02 Lisinopril (Prinivil) 40 mg DAILY PO 01/11/19 09:00 01/13/19 07:56 DC 01/12/19 09:56 Magnesium Hydroxide (Milk Of Magnesia) 30 ml DAILYPRN PRN PO CONSTIPATION 01/10/19 22:30 Morphine Sulfate (Morphine Sulfate Inj) 1 mg Q6HP PRN IV PAIN 01/14/19 09:30 01/14/19 11:17 Multivitamins (Theragram-M) 1 tab DAILY PO 01/11/19 09:00 01/14/19 08:02 Naloxone HCl (Narcan) 0.1 mg Q5MP PRN IV drowsiness 01/12/19 12:30 01/12/19 13:34 Nicotine (Nicoderm Cq 21mg) 1 patch DAILY TD 01/14/19 09:00 01/14/19 11:49 DC Nicotine (Nicorette) 4 mg Q2HP PRN PO NICOTINE WITHDRAWAL 01/14/19 12:00 Non-Formulary Medication (Insulin Iv Rate Change Documentation ml/ Hr) ASDIRECTED XX 01/10/19 19:00 01/10/19 23:58 DC Oxazepam (Serax) 30 mg BID PO 01/11/19 09:00 01/11/19 09:00 DC Oxazepam (Serax) 30 mg BID PO 01/11/19 09:00 01/12/19 13:37 DC 01/12/19 09:56 Oxycodone/ Acetaminophen (Percocet 5mg/ 325mg Tablet) 1 tab Q6HP PRN PO MILD/MODERATE PAIN (PS 1-7) 01/11/19 09:30 01/12/19 13:37 DC Oxycodone/ Acetaminophen (Percocet 5mg/ 325mg Tablet) 2 tab Q6HP PRN PO SEVERE PAIN (PS 8-10) 01/11/19 09:30 01/12/19 13:37 DC 01/12/19 09:53 Prazosin HCl (Minipress) 4 mg QHS PO 01/11/19 21:00 01/11/19 21:00 DC Prazosin HCl (Minipress) 4 mg QHS PO 01/11/19 21:00 01/13/19 20:13 Quetiapine Fumarate (SEROquel) 100 mg DAILY PO 01/11/19 09:00 01/14/19 08:05 Quetiapine Fumarate (SEROquel) 400 mg QHS PO 01/11/19 21:00 01/11/19 21:00 DC Quetiapine Fumarate (SEROquel) 400 mg QHS PO 01/11/19 21:00 01/13/19 20:13 Sertraline HCl (Zoloft) 150 mg DAILY PO 01/11/19 09:00 01/14/19 08:02 Sodium Chloride 1,000 ml @ 100 mls/hr Q10H IV 01/14/19 10:00 01/15/19 00:59 01/14/19 11:18 Sodium Chloride 1,000 ml @ 100 mls/hr Q10H IV 01/10/19 22:45 01/13/19 08:21 DC 01/13/19 03:33 Thiamine HCl (Thiamine HCl) 100 mg DAILY PO 01/11/19 09:00 01/14/19 08:02 Trazodone HCl (Desyrel) 50 mg QHSP PRN PO INSOMNIA 01/10/19 22:30 01/13/19 10:16 DC Allergies Coded Allergies: No Known Allergies (Unverified , 10/19/18) Objective Physical Examination Examination GENERAL APPEARANCE: Patient looks uncomfortable, left arm on a pillow. SKIN: Warm and dry. HEENT: Appears as his age, lips dry. NECK: [Supple, no thyromegaly. No obvious jugular venous distention]. LUNGS: [Clear to auscultation bilaterally. No wheezing appreciated]. HEART: [No chest wall abnormalities. Regular rate and rhythm with no murmurs appreciated]. EXTREMITIES: Left arm is noticeably swollen from the hand to below the elbow. There is some brawny induration spread out dorsolaterally but no real area of distinct induration or fluctuance. The whole arm and hand is swollen. Patient not able to move his fingers well due to the swelling as well as pain with dors iflexion of the wrist. He denies any numbness.. Vital Signs Vital Signs Date Time Temp Pulse Resp B/P (MAP) Pulse Ox O2 Delivery O2 Flow Rate FiO2 01/14/19 11:17 18 01/14/19 08:02 98 159/73 01/14/19 06:00 99.3 99 01/13/19 12:24 3.0 01/11/19 13:31 Room Air I&Os I&O- Last 24 Hours up to 6 AM 01/14/19 06:00 Intake Total 4040 ml Output Total 1150 ml Balance 2890 ml Laboratory Data Labs 24H Laboratory Tests 2 01/13/19 16:58: Bedside Glucose (Misc Panel) 208H 01/13/19 20:14: Bedside Glucose (Misc Panel) 339H 01/14/19 05:30: Nucleated Red Blood Cells % (auto) 0.0, Anion Gap 7L, Glomerular Filtration Rate 49.8L, Blood Urea Nitrogen 25H, Creatinine 1.87H, Sodium Level 137, Potassium Level 3.3L, Chloride Level 105, Carbon Dioxide Level 25, Calcium Level 7.6L, C- Reactive Protein, Quantitative 18.10H 01/14/19 11:37: Bedside Glucose (Misc Panel) 148H CBC/BMP Laboratory Tests 01/14/19 05:30 Red Blood Count 3.45 L, Mean Corpuscular Volume 80.0, Mean Corpuscular Hemoglobin 27.0, Mean Corpuscular Hemoglobin Concent 33.7, Red Cell Distribution Width 13.6, Calcium Level 7.6 L Microbiology Microbiology 01/11/19 Blood Culture - Preliminary, Resulted No Growth after 72 hours. All specime... 01/11/19 Blood Culture - Preliminary, Resulted No Growth after 72 hours. All specime... 01/12/19 Gram Stain - Final, Resulted 01/12/19 Abscess Culture, Resulted Pending 01/12/19 Anaerobic Culture, Resulted Pending Impression IV drug user Left arm swelling, induration and abscess Primary concern with the degree of the arm swelling is is whether patient is developing compartment syndrome. He had an ultrasound today that was done that shows a possibility of just induration or a complex abscess mass. Of course as this is an ultrasound exact location wasn't really correlated. I brought the SonoSite at the bedside and looked at this and they think I could see the complex swelling. I'll need to bring him to the operating room to explore the area. I've also spoken to Dr. Tinoco is butadiene converter helper for orthopedics that I may ne ed to call him especially if there is no substantial abscess in the area that we may need to consider possibility of a compartment syndrome that I may need him in the operating room for fasciotomy. Plan / VTE VTE Prophylaxis Ordered?: Yes HELDER GONZALEZ MD Jan 14, 2019 12:12
[2019-01-14] MEDS ORDERED: LIDOCAINE W/EPINEPHRINE 1% 20ML VIAL As Ordered ONE (15:22)
[2019-01-14] MEDS ORDERED: LIDOCAINE 1% SDV INJ 30 ML VIAL As Ordered ONE (15:22)
[2019-01-14] MEDS ORDERED: GLYCOPYRROLATE INJ 0.2 MG/ML 2 ML VIAL As Ordered ONE (15:56)
[2019-01-14] MEDS ORDERED: BUPIVACAINE HCL 0.25% 30 ML VIAL As Ordered ONE (16:15)
[2019-01-14] MEDS ORDERED: PROPOFOL 200 MG/20 ML VIAL As Ordered ONE (16:40)
[2019-01-14] MEDS ORDERED: fentaNYL 100 MCG/2 ML INJECTION (J3010) As Ordered ONE (16:40)
[2019-01-14] MEDS ORDERED: LIDOCAINE 2% INJ 100 MG/5 ML SDV (FOR ANES.) As Ordered ONE (16:40)
[2019-01-14] MEDS ORDERED: ONDANSETRON 4MG/2ML VIAL (J2405) As Ordered ONE (16:40)
[2019-01-14] MEDS ORDERED: MIDAZOLAM INJ 2 MG/2 ML VIAL (J2250) As Ordered ONE (16:40)
[2019-01-14] MEDS ORDERED: KETOROLAC 60 MG/2 ML VIAL (J1885) As Ordered ONE (16:40)
[2019-01-14] MEDS ORDERED: dexameTHASONE 4 MG/ML 1ML VIAL (J1100) As Ordered ONE (16:40)
--- NOTE | 2019-01-14 16:55 | POST-OPPD ---
Postoperative Procedure Note Date Of Procedure: Jan 14, 2019 PREOPERATIVE DIAGNOSIS: left arm cellulitis, abscess POSTOPERATIVE DIAGNOSIS: same FINDINGS: I measured the compartmental pressures with the reginaldo device, all were normal. Volar compartment 6, dorsal compartment 13, mobile wad 6 With US and an 18 gauge needle, I looked for areas of possible abscess collection and centered the incision to the area where I found drainable abscess. I did not find a clear well demarcated abscess site but has abscess in between muscle planes both at the volar/wrist side and dorsal side from the m edial forearm incision. PROCEDURE: Measurment of compartment pressures, exploration of forearm, drainage of abscess using US guidance SURGEON: Tyler Doshi MD VOLUNTEER FIREFIGHTER: ANESTHESIA: general anesthesia SPECIMENS: abscess cultures ESTIMATED BLOOD LOSS: 25 REPLACED: DRAINS: COMPLICATIONS: none POSTOPERATIVE CONDITION: stable TYLER DOSHI MD Jan 14, 2019 16:55
--- NOTE | 2019-01-14 17:05 | ROOPDOC ---
[facility] Report Of Operation Report of Operation DATE OF PROCEDURE: 01/14/19 PREOPERATIVE DIAGNOSIS: left arm cellulitis, abscess POSTOPERATIVE DIAGNOSIS: same FINDINGS: I measured the compartmental pressures with the reginaldo device, all were normal. Volar compartment 6, dorsal compartment 13, mobile wad 6 With US and an 18 gauge needle, I looked for areas of possible abscess collection and centered the incision to the area where I found drainable abscess. I did not find a clear well demarcated abscess site but has abscess in between muscle planes both at the volar/wrist side and dorsal side from the lateral (thumb side) forearm incision. PROCEDURE: Measurment of compartment pressures, exploration of forearm, drainage of abscess using US guidance SURGEON: Tyler Doshi MD HOME MISSION WORKER: ANESTHESIA: general anesthesia SPECIMENS: abscess cultures ESTIMATED BLOOD LOSS: 25 REPLACED: DRAINS: COMPLICATIONS: none POSTOPERATIVE CONDITION: stable DESCRIPTION OF PROCEDURE: After adequate general anesthesia was started, I again evaluated his left forearm. He has some more prominent fullness at the thumb (lateral) side of the forearm that extends more dorsally than ventrally group home between the wrist and the antecubital fossa. I used our ultrasound to see for any definite collection there were inflamed tissues and some complex appearing area without any definite fluid collection that I could see. At this point I decided to test for the compartment pressures. I tested the volar, dorsal and mobile wad area for compartment pressures using the reginaldo device. All compartments have normal to low pressures. The dorsal compartment in size which is 13. The mobile wad and the volar compartments have low pressures at 6. Patient was then prepped with Betadine. I again used the ultrasound and an 18-gauge needle attached a 20 mL syringe aspirating at the area where it looks to have some inflammation on the ultrasound. I localized an area of possible about two [address] at the medial area near the antecubital area and I started making a longitudinal incision. They went through the fascia of the overlying muscles and this. Cephalic vein coursing through the area was tied off. After opening through the fascia and in between the muscles I got some non-foul smell smelling liquid purulent drainage that seems to go in between the muscle planes without any real collection area. I followed the tract in between the muscle planes expanding this with both the suction device and hemostats to create a tunnel while placing pressure distally to locate where the other collections are and connect all the disc compartments with the incision I created. After hemostasis of the wound was left open this was packed with 1 inch iodoform gauze with a packing extending to the different muscle plane compartments. Bulky gauze dressings and a Kerlix roll was then used to cover the wound. Patient was then promptly awakened, extubated and brought to recovery room stable. TYLER DOSHI MD Jan 14, 2019 17:05
[2019-01-14] MEDS ORDERED: ONDANSETRON 4MG/2ML VIAL (J2405) IV PRN (17:30)
[2019-01-14] MEDS ORDERED: LR 1,000 ML IV SCH (17:30)
[2019-01-14] MEDS ORDERED: PERCOCET 5MG/325MG TAB PO PRN (17:30)
[2019-01-14] MEDS ORDERED: fentaNYL 100 MCG/2 ML INJECTION (J3010) IV PRN (17:30)
[2019-01-14] MEDS: NICOTINE POLACRILEX 2 MG GUM PO PRN ×2 (18:03→20:24)
[2019-01-14] MEDS: QUEtiapine FUMARATE 200 MG TAB PO SCH (21:16)
[2019-01-14] MEDS: PRAZOSIN 1 MG CAP PO SCH (21:17)
[2019-01-15] VITALS (8 sets, daily range): BP systolic 142–157; BP diastolic 76–93
[2019-01-15] MEDS ORDERED: HumaLOG INSULIN (NovoLOG) PER UNIT SC ONE (00:30)
[2019-01-15] MEDS: NALOXONE INJ 0.4 MG/1 ML VIAL (J2310) IV PRN (00:56)
[2019-01-15] MEDS: CLINDAMYCIN 900 MG in APPROPRIATE DILUENT 1 EA IV SCH (03:25)
[2019-01-15] MEDS: ACETAMINOPHEN 650MG ER TAB (TYLENOL ARTHRITIS) PO SCH ×3 (05:16→21:22)
[2019-01-15] MEDS: NICOTINE POLACRILEX 2 MG GUM PO PRN ×5 (05:24→23:38)
[2019-01-15 06:12] LABS: HEMATOCRIT 28.3 % (42.0-52.0); HEMOGLOBIN 9.4 g/dl (13.5-17.5); MEAN CORPUSCULAR HEMOGLOBIN 27.7 pg (27.0-33.0); MEAN CORPUSCULAR HGB CONC 33.2 g/dl (32.0-36.5); MEAN CORPUSCULAR VOLUME 83.5 fl (80.0-96.0); PLATELET COUNT, AUTOMATED 187 10^3/uL (150-450); RED BLOOD COUNT 3.39 10^6/uL (4.30-6.10); WHITE BLOOD COUNT 13.1 10^3/uL (4.0-10.0)
[2019-01-15 06:59] LABS: C REACTIVE PROTEIN QUANTITATIV 22.1 MG/DL (0.00-0.30); CALCIUM LEVEL 7.5 MG/DL (8.5-10.1); CREATININE FOR GFR 1.92 MG/DL (0.70-1.30); GLOMERULAR FILTRATION RATE 48.3 (>60); POTASSIUM SERUM 4.7 MEQ/L (3.5-5.1)
[2019-01-15] MEDS: GABAPENTIN 300 MG CAP PO SCH ×2 (08:28→21:22)
[2019-01-15] MEDS ORDERED: VANCOMYCIN HCL 500 MG in D5W MINI-BAG PLUS 100 ML IV ONE (10:00)
[2019-01-15] MEDS: HumaLOG INSULIN (NovoLOG) PER UNIT SC SCH ×4 (10:42→21:24)
[2019-01-15] MEDS: LEVEMIR (INSULIN DETEMIR) 1 UNITS/0.01ML SC SCH (10:42)
[2019-01-15] MEDS: FOLIC ACID 1 MG TAB PO SCH (10:43)
[2019-01-15] MEDS: SERTRALINE HCL 50 MG TAB PO SCH (10:43)
[2019-01-15] MEDS: LACTOBACILLUS ACIDOPHILUS CAP (BACID) PO SCH (10:43)
[2019-01-15] MEDS: DIVALPROEX 250 MG TAB PO SCH ×2 (10:43→21:21)
[2019-01-15] MEDS: CARVedilol 12.5 MG TAB PO SCH ×2 (10:44→21:23)
[2019-01-15] MEDS: THIAMINE 100 MG TAB PO SCH (10:44)
[2019-01-15] MEDS: MULTIVITAMINS/MINERALS THERAP 1 TAB PO SCH (10:44)
[2019-01-15] MEDS: HEPARIN SOD (PORCINE) 5000 UNITS/ML VIAL SC SCH ×2 (10:45→21:21)
[2019-01-15] MEDS: QUEtiapine FUMARATE 100 MG TAB PO SCH (10:45)
[2019-01-15] MEDS ORDERED: VANCOMYCIN HCL 1,000 MG, VIAL MATE ADAPTER 1 EACH in D5W 250 ML IV SCH (11:00)
[2019-01-15] MEDS: MORPHINE 4 MG/ML 1ML VIAL/SYRINGE (J2270) IV PRN ×3 (11:03→23:22)
--- NOTE | 2019-01-15 11:17 | REP ---
Ultrasound-guided left arm abscess aspiration The procedure was performed by KILEY Hansen, under the direct supervision of Dr. Rendon. The risks and benefits of the procedure were explained to the patient and informed consent was obtained both verbally and written. Directly prior to the start of the procedure, a formal timeout was completed in the procedure room. Under ultrasound guidance, the largest pocket of fluid in the left forearm was localized and skin was marked. The skin was then prepped and draped in a sterile fashion. 3 ml of 1% lidocaine was used as a local anesthetic. Using ultrasound guidance, an 18 gauge needle was inserted and advanced into the fluid pocket. Approximately 0.5 mL of bloody pus colored fluid was withdrawn and to the laboratory for further analysis. The patient tolerated the procedure well and there were no immediate complications. After the appropriate monitored convalescence the patient was discharged from the department. Reviewed by KILEY Fitzgerald 01/12/2019 10:22 A Electronically Signed by Jose Rendon MD 01/15/2019 11:09 A
--- NOTE | 2019-01-15 13:33 | IPNPDOC ---
Subjective Date Seen The patient was seen on 01/15/19. Subjective Chief Complaint/HPI Patient seen and examined at the bedside. Reports his left upper extremity swelling and pain has improved somewhat. Denies any acute overnight complaints. Objective Physical Examination General Exam: Positive: Alert, Cooperative, No Acute Distress Eye Exam: Negative: Sclera icteric ENT Exam: Positive: Atraumatic, Mucous membr. moist/pink Neck Exam: Negative: JVD Chest Exam: Positive: Clear to auscultation, Normal air movement Heart Exam: Positive: Rate Normal, Regular Rhythm, Normal S1, Normal S2 Abdomen Exam: Positive: Soft; Negative: Tenderness, Hepatospenomegaly Extremity Exam: Positive: Normal pulses Skin Exam: Positive: Other skin issue (left upper extremity wrapped in surgical dressing. Extremity neurovascularly intact distally.) Neuro Exam: Positive: Normal Gait, Normal Speech Psych Exam: Positive: Mental status NL, Mood NL, Oriented x 3 Assessment /Plan Plan/VTE VTE Prophylaxis Ordered?: Yes Plan LUE Abscess/Swelling 2/ IVDA U/S of the Ext notable for 3.8 x 2.7 x 6 cm abscess on admission s/p drainage by IR on 01/12 Repeat U/S of the LUE notable for repeat Abscess on 01/14 Blood cultures unrevealing thus far Wound culture notable for streptococcus intermedius Cont IV Rocephin s/p Surgical Intervention I&D with Dr. Doshi yesterday Diabetes mellitus Continue insulin sliding scale, Levemir adjusted for labile blood sugars Chronic kidney disease stage III Serum creatinine slightly above baseline We'll continue to monitor Peripheral neuropathy Continue gabapentin for renally adjusted dose Hypertension Continue regimen as ordered Anxiety/depression Continue sertraline, Seroquel, Depakote DVT prophylaxis Heparin subcutaneous VS, I&O, 24H, Fishbone Vital Signs/I&O Vital Signs Date Time Temp Pulse Resp B/P (MAP) Pulse Ox O2 Delivery O2 Flow Rate FiO2 01/15/19 11:18 71 16 99 2.0 01/15/19 10:44 133/77 01/15/19 10:00 97.4 01/11/19 13:31 Room Air I&O- Last 24 Hours up to 6 AM 01/15/19 05:59 Intake Total 3540 ml Output Total 1025 ml Balance 2515 ml Laboratory Data 24H LABS Laboratory Tests 2 01/14/19 16:56: Bedside Glucose (Misc Panel) 194H 01/14/19 18:29: Bedside Glucose (Misc Panel) 199H 01/14/19 20:22: Bedside Glucose (Misc Panel) 297H 01/15/19 00:07: Bedside Glucose (Misc Panel) 447H 01/15/19 02:09: Bedside Glucose (Misc Panel) 439H 01/15/19 05:30: Nucleated Red Blood Cells % (auto) 0.0, Anion Gap 7L, Glomerular Filtration Rate 48.3L, Blood Urea Nitrogen 30H, Creatinine 1.92H, Sodium Level 138, Potassium Level 4.7#, Chloride Level 107, Carbon Dioxide Level 24, Calcium Level 7.5L, C- Reactive Protein, Quantitative 22.10H 01/15/19 11:50: Bedside Glucose (Misc Panel) 384H CBC/BMP Laboratory Tests 01/15/19 05:30 Red Blood Count 3.39 L, Mean Corpuscular Volume 83.5, Mean Corpuscular Hemoglobin 27.7, Mean Corpuscular Hemoglobin Concent 33.2, Red Cell Distribution Width 14.3, Calcium Level 7.5 L Microbiology Microbiology 01/11/19 Blood Culture - Preliminary, Resulted No Growth after 72 hours. All specime... 01/11/19 Blood Culture - Preliminary, Resulted No Growth after 72 hours. All specime... 01/14/19 Gram Stain - Final, Resulted 01/14/19 Abscess Culture, Resulted Pending 01/14/19 Anaerobic Culture, Resulted Pending 01/12/19 Gram Stain - Final, Resulted 01/12/19 Abscess Culture - Final, Resulted Streptococcus Intermedius 01/12/19 Anaerobic Culture, Resulted Pending PEDRO LUIS SORENSEN MD Jan 15, 2019 13:33
--- NOTE | 2019-01-15 14:50 | IPNPDOC ---
Subjective General Date/Time Seen The patient was seen on 01/15/19 at 14:43. Subject Chief Complaint/History The patient is a 48-year-old male admitted with a reason for visit of Abcess, Diabetes. Patient seen early this morning, very sleepy. Nurse reports he has been like that overnight. He has not been receiving much narcotic pain meds but is on some psychotropic meds. Current Medications Current Medications Current Medications Medications (Trade) Dose Ordered Sig/Tee Route PRN Reason Start Time Stop Time Status Last Admin Dose Admin Acetaminophen (Tylenol Arthritis Er) 650 mg Q8H PO 01/10/19 22:00 01/15/19 05:16 Al Hydrox/Mg Hydrox/Simethicone (Mylanta) 30 ml DAILYPRN PRN PO DYSPEPSIA 01/10/19 22:30 Carvedilol (COReg) 25 mg BID PO 01/11/19 09:00 01/11/19 09:00 DC Carvedilol (COReg) 25 mg BID PO 01/11/19 09:00 01/15/19 10:44 Ceftriaxone Sodium 1 gm/ Dextrose 50 ml @ 100 mls/hr Q24H IV 01/15/19 14:00 Clindamycin Phosphate 900 mg/ IV Miscellaneous Supplies 50 ml @ 50 mls/hr Q8H IV 01/11/19 04:00 01/15/19 07:28 DC 01/15/19 03:25 Dextrose (Dextrose 50%) 25 ml ASDIRECTED PRN IV SEE LABEL COMMENTS 01/10/19 22:45 Dextrose (Dextrose 50%) 50 ml STAT STAT IV 01/13/19 10:49 01/13/19 10:51 DC 01/13/19 10:55 Dextrose (Dextrose 50%) 50 ml STAT STAT IV 01/13/19 10:49 01/13/19 10:54 DC 01/13/19 10:57 Divalproex Sodium (Depakote) 750 mg BID PO 01/10/19 22:30 01/15/19 10:43 Fentanyl Citrate (Sublimaze) 25 mcg Q5MP PRN IV MODERATE PAIN (PS 4-7) 01/14/19 17:30 01/14/19 18:30 DC Folic Acid (Folic Acid) 1 mg DAILY PO 01/11/19 09:00 01/15/19 10:43 Gabapentin (Neurontin) 600 mg BID PO 01/15/19 21:00 Gabapentin (Neurontin) 600 mg TID PO 01/11/19 09:00 01/15/19 13:29 DC 01/14/19 21:16 Gabapentin (Neurontin) 600 mg TID PO 01/11/19 09:00 01/11/19 09:00 DC Glucagon (Glucagon) 1 mg ASDIRECTED PRN SC SEE LABEL COMMENTS 01/10/19 22:45 Glucose (Glucose) 16 GM ASDIRECTED PRN PO SEE LABEL COMMENTS 01/10/19 22:45 Heparin Sodium (Porcine) (Heparin) 5,000 units Q12H SC 01/11/19 09:00 01/15/19 10:45 Home Med (Med Rec Complete!) ASDIRECTED XX 01/10/19 21:30 01/10/19 21:32 DC Insulin Detemir (Levemir Insulin) 20 units DAILY SC 01/15/19 09:00 01/15/19 10:42 Insulin Detemir (Levemir Insulin) 40 units QHS NC 01/13/19 21:00 01/14/19 09:31 DC 01/13/19 21:02 Insulin Detemir (Levemir Insulin) 85 units QHS NC 01/10/19 22:30 01/13/19 13:59 DC 01/12/19 21:14 Insulin Human Lispro (HumaLOG INSULIN) SEE PROTOCOL TABLE AC NC 01/15/19 07:30 01/15/19 10:42 Insulin Human Lispro (HumaLOG INSULIN) SEE PROTOCOL TABLE AC NC 01/12/19 12:00 01/14/19 09:31 DC 01/13/19 08:22 Insulin Human Lispro (HumaLOG INSULIN) SEE PROTOCOL TABLE QHS NC 01/15/19 21:00 Insulin Human Lispro (HumaLOG INSULIN) [facility] 01/12/19 21:00 01/14/19 09:31 DC 01/13/19 21:02 Insulin Human Lispro (HumaLOG INSULIN) See Protocol Table AC NC 01/11/19 07:30 01/11/19 07:30 DC Insulin Human Lispro (HumaLOG INSULIN) See Protocol Table Q6H NC 01/11/19 00:00 01/12/19 11:46 DC 01/11/19 18:07 Insulin Human Regular 100 units/ Sodium Chloride 100 ml @ 8.1 mls/hr [id number] IV 01/10/19 18:56 01/10/19 23:55 DC 01/10/19 19:35 Lactated Ringer's 1,000 ml @ 100 mls/hr Q10H IV 01/14/19 17:30 01/14/19 18:30 DC Lactated Ringer's 1,500 ml @ 100 mls/hr Q15H IV 01/13/19 08:30 01/13/19 23:29 DC 01/13/19 18:34 Lactobacillus Acidophilus (Bacid) 1 ea DAILY PO 01/11/19 09:00 01/15/19 10:43 Lisinopril (Prinivil) 40 mg DAILY PO 01/11/19 09:00 01/13/19 07:56 DC 01/12/19 09:56 Magnesium Hydroxide (Milk Of Magnesia) 30 ml DAILYPRN PRN PO CONSTIPATION 01/10/19 22:30 Morphine Sulfate (Morphine Sulfate Inj) 1 mg Q6HP PRN IV PAIN 01/14/19 09:30 01/15/19 11:03 Multivitamins (Theragram-M) 1 tab DAILY PO 01/11/19 09:00 01/15/19 10:44 Naloxone HCl (Narcan) 0.1 mg Q5MP PRN IV drowsiness 01/12/19 12:30 01/15/19 00:56 Nicotine (Nicoderm Cq 21mg) 1 patch DAILY TD 01/14/19 09:00 01/14/19 11:49 DC Nicotine (Nicorette) 4 mg Q2HP PRN PO NICOTINE WITHDRAWAL 01/14/19 12:00 01/15/19 10:44 Non-Formulary Medication (Insulin Iv Rate Change Documentation ml/ Hr) ASDIRECTED XX 01/10/19 19:00 01/10/19 23:58 DC Ondansetron HCl (ZOFRAN INJection) 4 mg Q4HP PRN IV NAUSEA OR VOMITING 01/14/19 17:30 01/14/19 18:30 DC Oxazepam (Serax) 30 mg BID PO 01/11/19 09:00 01/11/19 09:00 DC Oxazepam (Serax) 30 mg BID PO 01/11/19 09:00 01/12/19 13:37 DC 01/12/19 09:56 Oxycodone/ Acetaminophen (Percocet 5mg/ 325mg Tablet) 1 tab ASDIRECTED PRN PO MILD/MODERATE PAIN (PS 1-7) 01/14/19 17:30 01/14/19 18:30 DC Oxycodone/ Acetaminophen (Percocet 5mg/ 325mg Tablet) 1 tab Q6HP PRN PO MILD/MODERATE PAIN (PS 1-7) 01/11/19 09:30 01/12/19 13:37 DC Oxycodone/ Acetaminophen (Percocet 5mg/ 325mg Tablet) 2 tab Q6HP PRN PO SEVERE PAIN (PS 8-10) 01/11/19 09:30 01/12/19 13:37 DC 01/12/19 09:53 Prazosin HCl (Minipress) 4 mg QHS PO 01/11/19 21:00 01/11/19 21:00 DC Prazosin HCl (Minipress) 4 mg QHS PO 01/11/19 21:00 01/14/19 21:17 Quetiapine Fumarate (SEROquel) 100 mg DAILY PO 01/11/19 09:00 01/15/19 10:45 Quetiapine Fumarate (SEROquel) 400 mg QHS PO 01/11/19 21:00 01/11/19 21:00 DC Quetiapine Fumarate (SEROquel) 400 mg QHS PO 01/11/19 21:00 01/14/19 21:16 Sertraline HCl (Zoloft) 150 mg DAILY PO 01/11/19 09:00 01/15/19 10:43 Sodium Chloride 1,000 ml @ 100 mls/hr Q10H IV 01/14/19 10:00 01/15/19 00:59 DC 01/14/19 18:02 Sodium Chloride 1,000 ml @ 100 mls/hr Q10H IV 01/10/19 22:45 01/13/19 08:21 DC 01/13/19 03:33 Thiamine HCl (Thiamine HCl) 100 mg DAILY PO 01/11/19 09:00 01/15/19 10:44 Trazodone HCl (Desyrel) 50 mg QHSP PRN PO INSOMNIA 01/10/19 22:30 01/13/19 10:16 DC Vancomycin HCl 1000 mg/IV Miscellaneous Supplies 1 each/ Dextrose 270 ml @ 270 mls/hr Q18H IV 01/15/19 11:00 01/15/19 13:31 DC 01/15/19 12:02 Allergies Coded Allergies: No Known Allergies (Unverified , 10/19/18) Objective Physical Examination Examination GENERAL APPEARANCE:Sleepy, wakes up when prompted. EXTREMITIES: Left forearm with bulky kerlix roll covering his wound. Appears dry, clean. The hand and fingers visible, mild swelling. Looks improved. good capillary refill. palpable pulse, good color. Vital Signs Vital Signs Date Time Temp Pulse Resp B/P (MAP) Pulse Ox O2 Delivery O2 Flow Rate FiO2 01/15/19 11:18 71 16 99 2.0 01/15/19 10:44 133/77 01/15/19 10:00 97.4 01/11/19 13:31 Room Air I&Os I&O- Last 24 Hours up to 6 AM 01/15/19 05:59 Intake Total 3540 ml Output Total 1025 ml Balance 2515 ml Laboratory Data Labs 24H Laboratory Tests 2 01/14/19 16:56: Bedside Glucose (Misc Panel) 194H 01/14/19 18:29: Bedside Glucose (Misc Panel) 199H 01/14/19 20:22: Bedside Glucose (Misc Panel) 297H 01/15/19 00:07: Bedside Glucose (Misc Panel) 447H 01/15/19 02:09: Bedside Glucose (Misc Panel) 439H 01/15/19 05:30: Nucleated Red Blood Cells % (auto) 0.0, Anion Gap 7L, Glomerular Filtration Rate 48.3L, Blood Urea Nitrogen 30H, Creatinine 1.92H, Sodium Level 138, Potassium Level 4.7#, Chloride Level 107, Carbon Dioxide Level 24, Calcium Level 7.5L, C- Reactive Protein, Quantitative 22.10H 01/15/19 11:50: Bedside Glucose (Misc Panel) 384H CBC/BMP Laboratory Tests 01/15/19 05:30 Red Blood Count 3.39 L, Mean Corpuscular Volume 83.5, Mean Corpuscular Hemoglobin 27.7, Mean Corpuscular Hemoglobin Concent 33.2, Red Cell Distribution Width 14.3, Calcium Level 7.5 L Microbiology Microbiology 01/11/19 Blood Culture - Preliminary, Resulted No Growth after 72 hours. All specime... 01/11/19 Blood Culture - Preliminary, Resulted No Growth after 72 hours. All specime... 01/14/19 Gram Stain - Final, Resulted 01/14/19 Abscess Culture, Resulted Pending 01/14/19 Anaerobic Culture, Resulted Pending 01/12/19 Gram Stain - Final, Resulted 01/12/19 Abscess Culture - Final, Resulted Streptococcus Intermedius 01/12/19 Anaerobic Culture, Resulted Pending Impression left arm abscess from IV drug use Arm swelling looks better. Change of dressing starting tomorrow. I will turn over care to Dr. Murphy. Plan / VTE VTE Prophylaxis Ordered?: Yes HELDER GONZALEZ MD Jan 15, 2019 14:50
[2019-01-15] MEDS: cefTRIAXone SOD 1 GM in D5W MINI-BAG PLUS 50 ML IV SCH (15:05)
[2019-01-15] MEDS: QUEtiapine FUMARATE 200 MG TAB PO SCH (21:22)
[2019-01-15] MEDS: PRAZOSIN 1 MG CAP PO SCH (21:23)
[2019-01-16 02:00] VITALS: BP 158/86
[2019-01-16 02:17] VITALS: O2SAT 97
[2019-01-16] MEDS: ACETAMINOPHEN 650MG ER TAB (TYLENOL ARTHRITIS) PO SCH ×3 (05:22→21:46)
[2019-01-16] MEDS: MORPHINE 4 MG/ML 1ML VIAL/SYRINGE (J2270) IV PRN ×3 (05:23→18:37)
[2019-01-16] MEDS: NICOTINE POLACRILEX 2 MG GUM PO PRN ×6 (05:24→21:58)
[2019-01-16 06:00] VITALS: BP 166/89
[2019-01-16 06:06] LABS: HEMATOCRIT 29.7 % (42.0-52.0); HEMOGLOBIN 9.9 g/dl (13.5-17.5); MEAN CORPUSCULAR HEMOGLOBIN 27.3 pg (27.0-33.0); MEAN CORPUSCULAR HGB CONC 33.3 g/dl (32.0-36.5); PLATELET COUNT, AUTOMATED 259 10^3/uL (150-450); RED BLOOD COUNT 3.62 10^6/uL (4.30-6.10); WHITE BLOOD COUNT 12.7 10^3/uL (4.0-10.0)
[2019-01-16 06:25] LABS: C REACTIVE PROTEIN QUANTITATIV 15.8 MG/DL (0.00-0.30); CALCIUM LEVEL 7.6 MG/DL (8.5-10.1); CREATININE FOR GFR 1.66 MG/DL (0.70-1.30); GLOMERULAR FILTRATION RATE 57.1 (>60); POTASSIUM SERUM 3.4 MEQ/L (3.5-5.1)
[2019-01-16] MEDS: HumaLOG INSULIN (NovoLOG) PER UNIT SC SCH ×4 (08:48→21:00)
[2019-01-16] MEDS: HEPARIN SOD (PORCINE) 5000 UNITS/ML VIAL SC SCH ×2 (08:48→21:57)
[2019-01-16] MEDS: LEVEMIR (INSULIN DETEMIR) 1 UNITS/0.01ML SC SCH (08:48)
[2019-01-16] MEDS: MULTIVITAMINS/MINERALS THERAP 1 TAB PO SCH (08:49)
[2019-01-16] MEDS: SERTRALINE HCL 50 MG TAB PO SCH (08:49)
[2019-01-16] MEDS: THIAMINE 100 MG TAB PO SCH (08:50)
[2019-01-16] MEDS: LACTOBACILLUS ACIDOPHILUS CAP (BACID) PO SCH (08:50)
[2019-01-16] MEDS: CARVedilol 12.5 MG TAB PO SCH ×2 (08:50→21:57)
[2019-01-16] MEDS: FOLIC ACID 1 MG TAB PO SCH (08:50)
[2019-01-16] MEDS: DIVALPROEX 250 MG TAB PO SCH ×2 (08:50→21:48)
[2019-01-16] MEDS: GABAPENTIN 300 MG CAP PO SCH (08:51)
[2019-01-16] MEDS: QUEtiapine FUMARATE 100 MG TAB PO SCH ×2 (08:51→21:56)
[2019-01-16 12:29] VITALS: O2SAT 98
[2019-01-16] MEDS: cefTRIAXone SOD 1 GM in D5W MINI-BAG PLUS 50 ML IV SCH (12:48)
[2019-01-16] MEDS ORDERED: PERCOCET 5MG/325MG TAB PO ONE (13:00)
--- NOTE | 2019-01-16 13:30 | IPNPDOC ---
Text Note Date of Service The patient was seen on 01/16/19. NOTE S: patient states he is having increased left arm pain. He is laying on left arm and was ordering his lunch meal during exam. Patient has been having problems with oversedation and has been given several doses of narcan over past few days (sometimes not effective). Recently his serax as discontinued and gabapentin decreased. He states unable to describe intensity or duration of left arm pain and intermittent sharp pain at incision with constant dull throbbing pain to forearm. He denies neuropathic pain. O: Vitals as below HRRR no murmur LCTA no W/R/R Ext: left forearm guaze bandage intact, radial pulses and cap refill intact; left hand edema (non pitting) present. Right upper extremity normal; no ankle edema US images reviewed A/P: Pain control - discussed with pain management - and declined consult as they only see "chronic pain". Suspect no improvement of somnelence with narcan over past few days because of drug intactions with serax,depakote, gabapentin, trazadone and morphine. serax stopped on 01/12, will decreased doses of gabapentin and trazadone; continue prn morphine, trial of oxycodone x1 and add tramadol. unable to use NSAID or toradol due to BELLE with CKD. LUE Abscess/Swelling 2/2 IVDA U/S of the Ext notable for 3.8 x 2.7 x 6 cm abscess on admission s/p drainage by IR on 01/12 Repeat U/S of the LUE notable for repeat Abscess on 01/14 Blood cultures unrevealing thus far Wound culture notable for streptococcus intermedius - Cont IV Rocephin s/p Surgical Intervention I&D with Dr. Doshi 01/14/19 No signs of compartment syndrome Consider checking MRI vs CT upper extremity. Diabetes mellitus Continue insulin sliding scale, Levemir adjusted for labile blood sugars; poorly controlled with BS ranging 250-350 Chronic kidney disease stage III Serum creatinine slightly above baseline We'll continue to monitor Peripheral neuropathy Continue gabapentin for renally adjusted dose Hypertension Coreg increased - continue prazosin (used for PTSD and HTN). will add clonidine Anxiety/depression Continue sertraline, Seroquel, Depakote - consider changing sertaline to cymbalta for better pain and anxiety/depression control, decrease seroquel due to somnelence DVT prophylaxis Heparin subcutaneous Current Medications (with changes today - decreased gabapentin to 400mg TID, decreased seroquel to 300mg HS, add tramadol, one time dose percocet). Medications (Trade) Dose Ordered Sig/Tee Route PRN Reason Start Time Stop Time Status Last Admin Dose Admin Acetaminophen (Tylenol Arthritis Er) 650 mg Q8H PO 01/10/19 22:00 01/16/19 05:22 Al Hydrox/Mg Hydrox/Simethicone (Mylanta) 30 ml DAILYPRN PRN PO DYSPEPSIA 01/10/19 22:30 01/15/19 23:38 Carvedilol (COReg) 25 mg BID PO 01/11/19 09:00 01/11/19 09:00 DC Carvedilol (COReg) 25 mg BID PO 01/11/19 09:00 01/16/19 08:50 Ceftriaxone Sodium 1 gm/ Dextrose 50 ml @ 100 mls/hr Q24H IV 01/15/19 14:00 01/15/19 15:05 Clindamycin Phosphate 900 mg/ IV Miscellaneous Supplies 50 ml @ 50 mls/hr Q8H IV 01/11/19 04:00 01/15/19 07:28 DC 01/15/19 03:25 Dextrose (Dextrose 50%) 25 ml ASDIRECTED PRN IV SEE LABEL COMMENTS 01/10/19 22:45 Dextrose (Dextrose 50%) 50 ml STAT STAT IV 01/13/19 10:49 01/13/19 10:51 DC 01/13/19 10:55 Dextrose (Dextrose 50%) 50 ml STAT STAT IV 01/13/19 10:49 01/13/19 10:54 DC 01/13/19 10:57 Divalproex Sodium (Depakote) 750 mg BID PO 01/10/19 22:30 01/16/19 08:50 Fentanyl Citrate (Sublimaze) 25 mcg Q5MP PRN IV MODERATE PAIN (PS 4-7) 01/14/19 17:30 01/14/19 18:30 DC Folic Acid (Folic Acid) 1 mg DAILY PO 01/11/19 09:00 01/16/19 08:50 Gabapentin (Neurontin) 600 mg BID PO 01/15/19 21:00 01/16/19 08:51 Gabapentin (Neurontin) 600 mg TID PO 01/11/19 09:00 01/15/19 13:29 DC 01/14/19 21:16 Gabapentin (Neurontin) 600 mg TID PO 01/11/19 09:00 01/11/19 09:00 DC Glucagon (Glucagon) 1 mg ASDIRECTED PRN SC SEE LABEL COMMENTS 01/10/19 22:45 Glucose (Glucose) 16 GM ASDIRECTED PRN PO SEE LABEL COMMENTS 01/10/19 22:45 Heparin Sodium (Porcine) (Heparin) 5,000 units Q12H SC 01/11/19 09:00 01/16/19 08:48 Home Med (Med Rec Complete!) ASDIRECTED XX 01/10/19 21:30 01/10/19 21:32 DC Insulin Detemir (Levemir Insulin) 20 units DAILY [place] 01/15/19 09:00 01/16/19 08:48 Insulin Detemir (Levemir Insulin) 40 units QHS TX 01/13/19 21:00 01/14/19 09:31 DC 01/13/19 21:02 Insulin Detemir (Levemir Insulin) 85 units QHS TX 01/10/19 22:30 01/13/19 13:59 DC 01/12/19 21:14 Insulin Human Lispro (HumaLOG INSULIN) SEE PROTOCOL TABLE AC TX 01/15/19 07:30 01/16/19 08:48 Insulin Human Lispro (HumaLOG INSULIN) SEE PROTOCOL TABLE AC TX 01/12/19 12:00 01/14/19 09:31 DC 01/13/19 08:22 Insulin Human Lispro (HumaLOG INSULIN) SEE PROTOCOL TABLE QHS TX 01/15/19 21:00 01/15/19 21:24 Insulin Human Lispro (HumaLOG INSULIN) SEE PROTOCOL TABLE QHS TX 01/12/19 21:00 01/14/19 09:31 DC 01/13/19 21:02 Insulin Human Lispro (HumaLOG INSULIN) See Protocol Table AC TX 01/11/19 07:30 01/11/19 07:30 DC Insulin Human Lispro (HumaLOG INSULIN) See Protocol Table Q6H TX 01/11/19 00:00 01/12/19 11:46 DC 01/11/19 18:07 Insulin Human Regular 100 units/ Sodium Chloride 100 ml @ 8.1 mls/hr [id number] IV 01/10/19 18:56 01/10/19 23:55 DC 01/10/19 19:35 Lactated Ringer's 1,000 ml @ 100 mls/hr Q10H IV 01/14/19 17:30 01/14/19 18:30 DC Lactated Ringer's 1,500 ml @ 100 mls/hr Q15H IV 01/13/19 08:30 01/13/19 23:29 DC 01/13/19 18:34 Lactobacillus Acidophilus (Bacid) 1 ea DAILY PO 01/11/19 09:00 01/16/19 08:50 Lisinopril (Prinivil) 40 mg DAILY PO 01/11/19 09:00 01/13/19 07:56 DC 01/12/19 09:56 Magnesium Hydroxide (Milk Of Magnesia) 30 ml DAILYPRN PRN PO CONSTIPATION 01/10/19 22:30 Morphine Sulfate (Morphine Sulfate Inj) 1 mg Q6HP PRN IV PAIN 01/14/19 09:30 01/16/19 11:33 Multivitamins (Theragram-M) 1 tab DAILY PO 01/11/19 09:00 01/16/19 08:49 Naloxone HCl (Narcan) 0.1 mg Q5MP PRN IV drowsiness 01/12/19 12:30 01/15/19 00:56 Nicotine (Nicoderm Cq 21mg) 1 patch DAILY TD 01/14/19 09:00 01/14/19 11:49 DC Nicotine (Nicorette) 4 mg Q2HP PRN PO NICOTINE WITHDRAWAL 01/14/19 12:00 01/16/19 10:03 Non-Formulary Medication (Insulin Iv Rate Change Documentation ml/ Hr) ASDIRECTED XX 01/10/19 19:00 01/10/19 23:58 DC Ondansetron HCl (ZOFRAN INJection) 4 mg Q4HP PRN IV NAUSEA OR VOMITING 01/14/19 17:30 01/14/19 18:30 DC Oxazepam (Serax) 30 mg BID PO 01/11/19 09:00 01/11/19 09:00 DC Oxazepam (Serax) 30 mg BID PO 01/11/19 09:00 01/12/19 13:37 DC 01/12/19 09:56 Oxycodone/ Acetaminophen (Percocet 5mg/ 325mg Tablet) 1 tab ASDIRECTED PRN PO MILD/MODERATE PAIN (PS 1-7) 01/14/19 17:30 01/14/19 18:30 DC Oxycodone/ Acetaminophen (Percocet 5mg/ 325mg Tablet) 1 tab Q6HP PRN PO MILD/MODERATE PAIN (PS 1-7) 01/11/19 09:30 01/12/19 13:37 DC Oxycodone/ Acetaminophen (Percocet 5mg/ 325mg Tablet) 2 tab Q6HP PRN PO SEVERE PAIN (PS 8-10) 01/11/19 09:30 01/12/19 13:37 DC 01/12/19 09:53 Prazosin HCl (Minipress) 4 mg QHS PO 01/11/19 21:00 01/11/19 21:00 DC Prazosin HCl (Minipress) 4 mg QHS PO 01/11/19 21:00 01/15/19 21:23 Quetiapine Fumarate (SEROquel) 100 mg DAILY PO 01/11/19 09:00 01/16/19 08:51 Quetiapine Fumarate (SEROquel) 400 mg QHS PO 01/11/19 21:00 01/11/19 21:00 DC Quetiapine Fumarate (SEROquel) 400 mg QHS PO 01/11/19 21:00 01/15/19 21:22 Sertraline HCl (Zoloft) 150 mg DAILY PO 01/11/19 09:00 01/16/19 08:49 Sodium Chloride 1,000 ml @ 100 mls/hr Q10H IV 01/14/19 10:00 01/15/19 00:59 DC 01/14/19 18:02 Sodium Chloride 1,000 ml @ 100 mls/hr Q10H IV 01/10/19 22:45 01/13/19 08:21 DC 01/13/19 03:33 Thiamine HCl (Thiamine HCl) 100 mg DAILY PO 01/11/19 09:00 01/16/19 08:50 Trazodone HCl (Desyrel) 50 mg QHSP PRN PO INSOMNIA 01/10/19 22:30 01/13/19 10:16 DC Vancomycin HCl 1000 mg/IV Miscellaneous Supplies 1 each/ Dextrose 270 ml @ 270 mls/hr Q18H IV 01/15/19 11:00 01/15/19 13:31 DC 01/15/19 12:02 VS,Kvngbone, I+O VS, Fishbone, I+O Laboratory Tests 01/16/19 05:29 Red Blood Count 3.62 L, Mean Corpuscular Volume 82.0, Mean Corpuscular Hemoglobin 27.3, Mean Corpuscular Hemoglobin Concent 33.3, Red Cell Distribution Width 14.2, Calcium Level 7.6 L Vital Signs Date Time Temp Pulse Resp B/P (MAP) Pulse Ox O2 Delivery O2 Flow Rate FiO2 01/16/19 11:33 18 01/16/19 08:50 85 167/89 01/16/19 06:00 97.5 96 01/16/19 02:17 Room Air 01/15/19 11:18 2.0 I&O- Last 24 Hours up to 6 AM 01/16/19 06:00 Intake Total 4380 ml Output Total 0 ml Balance 4380 ml SHAYY SILVEIRA DO Jan 16, 2019 13:30
[2019-01-16 14:00] VITALS: BP 163/81
[2019-01-16] MEDS ORDERED: NS 1,000 ML IV ONE (14:00)
[2019-01-16] MEDS: ULTRACET TAB PO PRN ×2 (17:38→21:58)
[2019-01-16] MEDS: cloNIDine 0.1 MG TAB PO SCH (20:49)
[2019-01-16] MEDS: GABAPENTIN 400 MG CAP PO SCH (21:46)
[2019-01-16] MEDS: PRAZOSIN 1 MG CAP PO SCH (21:47)
[2019-01-16 22:00] VITALS: BP 168/88
[2019-01-17] MEDS: NICOTINE POLACRILEX 2 MG GUM PO PRN ×6 (04:46→22:32)
[2019-01-17] MEDS: ULTRACET TAB PO PRN ×2 (04:47→09:06)
[2019-01-17] MEDS: MORPHINE 4 MG/ML 1ML VIAL/SYRINGE (J2270) IV PRN (04:47)
[2019-01-17 06:00] VITALS: BP 164/78
[2019-01-17 06:02] LABS: HEMOGLOBIN 9.4 g/dl (13.5-17.5); MEAN CORPUSCULAR HEMOGLOBIN 27.6 pg (27.0-33.0); MEAN CORPUSCULAR HGB CONC 33.6 g/dl (32.0-36.5); MEAN CORPUSCULAR VOLUME 82.4 fl (80.0-96.0); PLATELET COUNT, AUTOMATED 274 10^3/uL (150-450); WHITE BLOOD COUNT 12.1 10^3/uL (4.0-10.0)
[2019-01-17 06:15] LABS: BLOOD UREA NITROGEN 20 MG/DL (7-18); CALCIUM LEVEL 7.9 MG/DL (8.5-10.1); CARBON DIOXIDE LEVEL 26 MEQ/L (21-32); CHLORIDE LEVEL 105 MEQ/L (98-107); CREATININE FOR GFR 1.41 MG/DL (0.70-1.30); GLOMERULAR FILTRATION RATE > 60.0 (>60); GLUCOSE, FASTING 279 MG/DL (70-100); POTASSIUM SERUM 3.8 MEQ/L (3.5-5.1); SODIUM LEVEL 137 MEQ/L (136-145)
[2019-01-17] MEDS: ACETAMINOPHEN 650MG ER TAB (TYLENOL ARTHRITIS) PO SCH ×3 (06:17→22:21)
[2019-01-17] MEDS: GABAPENTIN 400 MG CAP PO SCH ×4 (06:18→22:26)
[2019-01-17] MEDS: DIVALPROEX 250 MG TAB PO SCH ×2 (08:01→22:24)
[2019-01-17] MEDS: MULTIVITAMINS/MINERALS THERAP 1 TAB PO SCH (08:01)
[2019-01-17] MEDS: THIAMINE 100 MG TAB PO SCH (08:01)
[2019-01-17] MEDS: FOLIC ACID 1 MG TAB PO SCH (08:01)
[2019-01-17] MEDS: QUEtiapine FUMARATE 100 MG TAB PO SCH ×2 (08:02→22:25)
[2019-01-17] MEDS: DULoxetine 30 MG CAP (CYMBALTA) PO SCH (08:02)
[2019-01-17] MEDS: cloNIDine 0.1 MG TAB PO SCH ×2 (08:02→22:25)
[2019-01-17] MEDS: LACTOBACILLUS ACIDOPHILUS CAP (BACID) PO SCH (08:02)
[2019-01-17] MEDS: LEVEMIR (INSULIN DETEMIR) 1 UNITS/0.01ML SC SCH (08:03)
[2019-01-17] MEDS: CARVedilol 12.5 MG TAB PO SCH ×2 (08:03→22:22)
[2019-01-17] MEDS: HumaLOG INSULIN (NovoLOG) PER UNIT SC SCH ×4 (08:03→21:00)
[2019-01-17] MEDS: HEPARIN SOD (PORCINE) 5000 UNITS/ML VIAL SC SCH ×2 (08:04→22:25)
--- NOTE | 2019-01-17 08:47 | REP ---
CT examination of the soft tissues of the left forearm were obtained to assess for possible abscess. There is large defect in the soft tissues of the lateral mid forearm. There is a subtle but diffuse increase in the density of the soft tissues throughout the forearm. There is no CT evidence of a discernible abscess. The radius and ulna are intact. There is no CT evidence of a gross wrist or elbow joint effusion. IMPRESSION: Large wound in the soft tissues approximately 8.4 cm in length by 2.8 cm in width by 1.9 cm in height. There is no CT evidence of a discernible abscess or osseous involvement. Consider MRI. Electronically Signed by Bobby Baez DO 01/17/2019 09:48 A
--- NOTE | 2019-01-17 08:48 | REP ---
Soft tissue CT examination of the left humerus was obtained without intravenous contrast. REASON: Status post I and D abscess drainage. This examination shows no evidence of abnormal air densities or air-fluid levels in the left upper extremity. There is diffuse increased density throughout the soft tissues, consistent with diffuse edema. This would need to be correlated clinically. There is no evidence of a gross glenohumeral or elbow joint effusion. The humerus is intact. IMPRESSION: Diffuse edema is suspected. There is no CT evidence of an abscess. There is evidence of axillary adenopathy, consistent with patient's known recent abscess. The lymphadenopathy is likely reactive. Electronically Signed by Bobby Baez DO 01/17/2019 09:48 A
[2019-01-17 09:40] VITALS: O2SAT 98
--- NOTE | 2019-01-17 10:28 | IPN ---
DATE: 01/16/2019 On 01/16/2019, I rounded on Mr. Virk with Dr. Alfaro and we evaluated his wound at the bedside and indeed, the patient really had still ongoing pain and discomfort. He states that it has been the same and not any worse, possibly a little bit better than the day before. Compartment pressures have been performed by Dr. Doshi over the weekend, which did not reveal the compartment pressures, and the patient is able to move his fingers but he states that it does hurt when he moves. The problem today is that his white count is still elevated and he still has significant edema of his entire arm. He has had not had any fevers however, and no chills. There have been some issues with his narcotics and medications where narcotics have been given, but they have made him quite sedated and they have been having difficulty with adjusting these issues. He still favors his right arm and is mostly moving his left arm around with his right hand. His wound was evaluated. I did irrigate it with a little bit of peroxide. No purulent material was obtained from this and the fatty tissue that was seen and visualized was clean. I can see the fascia underlying this as well. IMPRESSION/PLAN: Patient has diffuse edema of his fingers, hand, and arm. At this time, after discussion with medicine I do feel that it is warranted to proceed with additional studies of this arm. He may need orthopedics or plastics to evaluate his arm more thoroughly then from a general surgery standpoint and having physical therapy see him and proceed with wrapping of his fingers up to his arm should help significantly. We have asked him to elevate his arm but he is having difficulty doing this as well.
--- NOTE | 2019-01-17 10:38 | IPN ---
DATE: 01/17/2019 The patient's white count continues to slowly come down it is a very slow progression, decrease in his white count essentially 13.6. 13.1, 12.7 and now today 12.1. He still has significant edema of that arm and I do not see order for a physical therapy consult and thus will have the physical therapy see him but in addition we will see if we can get OT to see him. We are still waiting on the results of the CAT scan but it is obvious to me that there is diffuse edema throughout this area from the fingers all way up to the elbow. When I move his fingers he does not have pain with passive movement, with active movement he has much more discomfort and overall states that today he feels a little bit better and has a little less pain that he had yesterday. I spoke with the nurses and the have had some significant issues about pain control giving him pain medication and getting quite sedated with this and despite the pain medication still asking for additional pain medication when he is sedated. In any case at this point I do feel that his major issue is swelling in this area. I do feel that this may be better evaluated by orthopedics. I will defer if he does not have significant improvement with his swelling, edema or if there is some intramuscular component of the abscess. This may be a better approach appropriately treated with orthopedics or plastics. We will see if we can get some decreased edema just doing some wraps and see if we can improve his function with doing so.
[2019-01-17] MEDS: oxyCODONE 5MG TAB PO PRN ×3 (12:34→22:23)
[2019-01-17 14:00] VITALS: BP 168/96
[2019-01-17] MEDS: cefTRIAXone SOD 1 GM in D5W MINI-BAG PLUS 50 ML IV SCH (14:13)
--- NOTE | 2019-01-17 18:14 | IPNPDOC ---
Text Note Date of Service The patient was seen on 01/17/19. NOTE S: patient states tramadol not helping. He did have relief with oxycodone. states intermittent arm throbbing is not as bad as yesterday. no fever. still with hand pain O: Vitals as below General: moderate distress, AAOx3 HRRR LCTA Left arm bandaged and exam per surgery CT Scan reviewed with patient (no contrast due to radiology concern with creatinine): IMPRESSION: Large wound in the soft tissues approximately 8.4 cm in length by 2.8 cm in width by 1.9 cm in height. There is no CT evidence of a discernible abscess or osseous involvement. Consider MRI. A/P: Pain control - pain medications and psych meds adjusted to avoid oversedation. LUE Abscess/Swelling 2/ IVDA U/S of the Ext notable for 3.8 x 2.7 x 6 cm abscess on admission s/p drainage by IR on 01/12 Repeat U/S of the LUE notable for repeat Abscess on 01/14 Blood cultures negative. ; Wound culture notable for streptococcus intermedius - Cont IV Rocephin s/p Surgical Intervention I&D with Dr. Doshi 01/14/19 No signs of compartment syndrome Addendum: surgical note reviewed - if no improvement consider ortho consult (Dr Calderon) and plastic surgery (Dr Guardado) consult. Diabetes mellitus Continue insulin sliding scale, Levemir adjusted for labile blood sugars; poorly controlled with BS ranging slowly improving with range 200-260 Chronic kidney disease stage III Serum creatinine improving Peripheral neuropathy Continue gabapentin for renally adjusted dose Hypertension Coreg increased - continue prazosin (used for PTSD and HTN). will add clonidine Anxiety/depression Continue Seroquel, Depakote -sertaline changed to cymbalta for better pain and anxiety/depression control, decrease seroquel due to somnelence DVT prophylaxis Heparin subcutaneous Current Medications Medications (Trade) Dose Ordered Sig/Tee Route PRN Reason Start Time Stop Time Status Last Admin Dose Admin Acetaminophen (Tylenol Arthritis Er) 650 mg Q8H PO 01/10/19 22:00 01/17/19 14:13 Al Hydrox/Mg Hydrox/Simethicone (Mylanta) 30 ml DAILYPRN PRN PO DYSPEPSIA 01/10/19 22:30 01/15/19 23:38 Carvedilol (COReg) 25 mg BID PO 01/11/19 09:00 01/11/19 09:00 DC Carvedilol (COReg) 25 mg BID PO 01/11/19 09:00 01/17/19 08:03 Ceftriaxone Sodium 1 gm/ Dextrose 50 ml @ 100 mls/hr Q24H IV 01/15/19 14:00 01/17/19 14:13 Clindamycin Phosphate 900 mg/ IV Miscellaneous Supplies 50 ml @ 50 mls/hr Q8H IV 01/11/19 04:00 01/15/19 07:28 DC 01/15/19 03:25 Clonidine HCl (Catapres) 0.1 mg BID PO 01/16/19 21:00 Dextrose (Dextrose 50%) 25 ml ASDIRECTED PRN IV SEE LABEL COMMENTS 01/10/19 22:45 Dextrose (Dextrose 50%) 50 ml STAT STAT IV 01/13/19 10:49 01/13/19 10:51 DC 01/13/19 10:55 Dextrose (Dextrose 50%) 50 ml STAT STAT IV 01/13/19 10:49 01/13/19 10:54 DC 01/13/19 10:57 Divalproex Sodium (Depakote) 750 mg BID PO 01/10/19 22:30 01/17/19 08:01 Duloxetine HCl (Cymbalta) 90 mg DAILY PO 01/17/19 09:00 01/17/19 08:02 Fentanyl Citrate (Sublimaze) 25 mcg Q5MP PRN IV MODERATE PAIN (PS 4-7) 01/14/19 17:30 01/14/19 18:30 DC Folic Acid (Folic Acid) 1 mg DAILY PO 01/11/19 09:00 01/17/19 08:01 Gabapentin (Neurontin) 400 mg Q8H PO 01/16/19 22:00 01/17/19 14:13 Gabapentin (Neurontin) 600 mg BID PO 01/15/19 21:00 01/16/19 12:52 DC 01/16/19 08:51 Gabapentin (Neurontin) 600 mg TID PO 01/11/19 09:00 01/15/19 13:29 DC 01/14/19 21:16 Gabapentin (Neurontin) 600 mg TID PO 01/11/19 09:00 01/11/19 09:00 DC Glucagon (Glucagon) 1 mg ASDIRECTED PRN SC SEE LABEL COMMENTS 01/10/19 22:45 Glucose (Glucose) 16 GM ASDIRECTED PRN PO SEE LABEL COMMENTS 01/10/19 22:45 Heparin Sodium (Porcine) (Heparin) 5,000 units Q12H NV 01/11/19 09:00 01/17/19 08:04 Home Med (Med Rec Complete!) ASDIRECTED XX 01/10/19 21:30 01/10/19 21:32 DC Insulin Detemir (Levemir Insulin) 20 units DAILY NV 01/15/19 09:00 01/16/19 13:33 DC 01/16/19 08:48 Insulin Detemir (Levemir Insulin) 24 units DAILY NV 01/17/19 09:00 01/17/19 08:03 Insulin Detemir (Levemir Insulin) 40 units QHS NV 01/13/19 21:00 01/14/19 09:31 DC 01/13/19 21:02 Insulin Detemir (Levemir Insulin) 85 units QHS NV 01/10/19 22:30 01/13/19 13:59 DC 01/12/19 21:14 Insulin Human Lispro (HumaLOG INSULIN) SEE PROTOCOL TABLE AC NV 01/15/19 07:30 01/17/19 17:43 Insulin Human Lispro (HumaLOG INSULIN) SEE PROTOCOL TABLE AC NV 01/12/19 12:00 01/14/19 09:31 DC 01/13/19 08:22 Insulin Human Lispro (HumaLOG INSULIN) SEE PROTOCOL TABLE QHS NV 01/15/19 21:00 01/15/19 21:24 Insulin Human Lispro (HumaLOG INSULIN) SEE PROTOCOL TABLE QHS NV 01/12/19 21:00 01/14/19 09:31 DC 01/13/19 21:02 Insulin Human Lispro (HumaLOG INSULIN) See Protocol Table AC NV 01/11/19 07:30 01/11/19 07:30 DC Insulin Human Lispro (HumaLOG INSULIN) See Protocol Table Q6H NV 01/11/19 00:00 01/12/19 11:46 DC 01/11/19 18:07 Insulin Human Regular 100 units/ Sodium Chloride 100 ml @ 8.1 mls/hr [id number] IV 01/10/19 18:56 01/10/19 23:55 DC 01/10/19 19:35 Lactated Ringer's 1,000 ml @ 100 mls/hr Q10H IV 01/14/19 17:30 01/14/19 18:30 DC Lactated Ringer's 1,500 ml @ 100 mls/hr Q15H IV 01/13/19 08:30 01/13/19 23:29 DC 01/13/19 18:34 Lactobacillus Acidophilus (Bacid) 1 ea DAILY PO 01/11/19 09:00 01/17/19 08:02 Lisinopril (Prinivil) 40 mg DAILY PO 01/11/19 09:00 01/13/19 07:56 DC 01/12/19 09:56 Magnesium Hydroxide (Milk Of Magnesia) 30 ml DAILYPRN PRN PO CONSTIPATION 01/10/19 22:30 Morphine Sulfate (Morphine Sulfate Inj) 1 mg Q6HP PRN IV PAIN 01/14/19 09:30 01/17/19 04:47 Multivitamins (Theragram-M) 1 tab DAILY PO 01/11/19 09:00 01/17/19 08:01 Naloxone HCl (Narcan) 0.1 mg Q5MP PRN IV drowsiness 01/12/19 12:30 01/15/19 00:56 Nicotine (Nicoderm Cq 21mg) 1 patch DAILY TD 01/14/19 09:00 01/14/19 11:49 DC Nicotine (Nicorette) 4 mg Q2HP PRN PO NICOTINE WITHDRAWAL 01/14/19 12:00 01/17/19 17:43 Non-Formulary Medication (Insulin Iv Rate Change Documentation ml/ Hr) ASDIRECTED XX 01/10/19 19:00 01/10/19 23:58 DC Ondansetron HCl (ZOFRAN INJection) 4 mg Q4HP PRN IV NAUSEA OR VOMITING 01/14/19 17:30 01/14/19 18:30 DC Oxazepam (Serax) 30 mg BID PO 01/11/19 09:00 01/11/19 09:00 DC Oxazepam (Serax) 30 mg BID PO 01/11/19 09:00 01/12/19 13:37 DC 01/12/19 09:56 Oxycodone HCl (Roxicodone, Oxyir) 5 mg Q4HP PRN PO PAIN 01/17/19 10:15 01/17/19 17:42 Oxycodone/ Acetaminophen (Percocet 5mg/ 325mg Tablet) 1 tab ASDIRECTED PRN PO MILD/MODERATE PAIN (PS 1-7) 01/14/19 17:30 01/14/19 18:30 DC Oxycodone/ Acetaminophen (Percocet 5mg/ 325mg Tablet) 1 tab Q6HP PRN PO MILD/MODERATE PAIN (PS 1-7) 01/11/19 09:30 01/12/19 13:37 DC Oxycodone/ Acetaminophen (Percocet 5mg/ 325mg Tablet) 2 tab Q6HP PRN PO SEVERE PAIN (PS 8-10) 01/11/19 09:30 01/12/19 13:37 DC 01/12/19 09:53 Prazosin HCl (Minipress) 4 mg QHS PO 01/11/19 21:00 01/11/19 21:00 DC Prazosin HCl (Minipress) 4 mg QHS PO 01/11/19 21:00 01/16/19 21:47 Quetiapine Fumarate (SEROquel) 100 mg DAILY PO 01/11/19 09:00 01/17/19 08:02 Quetiapine Fumarate (SEROquel) 300 mg QHS PO 01/16/19 21:00 01/16/19 21:56 Quetiapine Fumarate (SEROquel) 400 mg QHS PO 01/11/19 21:00 01/16/19 12:52 DC 01/15/19 21:22 Quetiapine Fumarate (SEROquel) 400 mg QHS PO 01/11/19 21:00 01/11/19 21:00 DC Sertraline HCl (Zoloft) 150 mg DAILY PO 01/11/19 09:00 01/16/19 13:28 DC 01/16/19 08:49 Sodium Chloride 1,000 ml @ 100 mls/hr Q10H IV 01/14/19 10:00 01/15/19 00:59 DC 01/14/19 18:02 Sodium Chloride 1,000 ml @ 100 mls/hr Q10H IV 01/10/19 22:45 01/13/19 08:21 DC 01/13/19 03:33 Thiamine HCl (Thiamine HCl) 100 mg DAILY PO 01/11/19 09:00 01/17/19 08:01 Tramadol/ Acetaminophen (Ultracet 37.5/ 325 Mg) 1 tab Q4HP PRN PO BACK PAIN 01/16/19 12:30 01/17/19 09:06 Trazodone HCl (Desyrel) 50 mg QHSP PRN PO INSOMNIA 01/10/19 22:30 01/13/19 10:16 DC Vancomycin HCl 1000 mg/IV Miscellaneous Supplies 1 each/ Dextrose 270 ml @ 270 mls/hr Q18H IV 01/15/19 11:00 01/15/19 13:31 DC 01/15/19 12:02 VS,Fishbone, I+O VS, Fishbone, I+O Laboratory Tests 01/17/19 05:26 Red Blood Count 3.40 L, Mean Corpuscular Volume 82.4, Mean Corpuscular Hemoglobin 27.6, Mean Corpuscular Hemoglobin Concent 33.6, Red Cell Distribution Width 14.3, Calcium Level 7.9 L Vital Signs Date Time Temp Pulse Resp B/P (MAP) Pulse Ox O2 Delivery O2 Flow Rate FiO2 01/17/19 09:06 16 01/17/19 08:03 82 164/78 01/17/19 06:00 97.2 98 01/16/19 12:29 Room Air 01/15/19 11:18 2.0 I&O- Last 24 Hours up to 6 AM 01/17/19 06:00 Intake Total 2057 ml Balance 2057 ml SHAYY SILVEIRA DO Jan 17, 2019 10:04
[2019-01-17 22:00] VITALS: BP 164/72
[2019-01-17] MEDS: PRAZOSIN 1 MG CAP PO SCH (22:24)
[2019-01-17 23:49] VITALS: BP 140/82
[2019-01-18] MEDS: ACETAMINOPHEN 650MG ER TAB (TYLENOL ARTHRITIS) PO SCH ×3 (05:47→21:31)
[2019-01-18] MEDS: GABAPENTIN 400 MG CAP PO SCH ×3 (05:48→21:33)
[2019-01-18] MEDS: oxyCODONE 5MG TAB PO PRN ×4 (05:48→21:33)
[2019-01-18] MEDS: NICOTINE POLACRILEX 2 MG GUM PO PRN ×6 (05:52→23:15)
[2019-01-18 06:00] VITALS: BP 172/78
[2019-01-18 07:59] LABS: BLOOD UREA NITROGEN 18 MG/DL (7-18); CALCIUM LEVEL 7.4 MG/DL (8.5-10.1); CARBON DIOXIDE LEVEL 26 MEQ/L (21-32); CHLORIDE LEVEL 103 MEQ/L (98-107); CREATININE FOR GFR 1.34 MG/DL (0.70-1.30); GLOMERULAR FILTRATION RATE > 60.0 (>60); GLUCOSE, FASTING 306 MG/DL (70-100); POTASSIUM SERUM 4.2 MEQ/L (3.5-5.1); SODIUM LEVEL 136 MEQ/L (136-145)
[2019-01-18] MEDS: FOLIC ACID 1 MG TAB PO SCH (08:06)
[2019-01-18] MEDS: DULoxetine 30 MG CAP (CYMBALTA) PO SCH (08:06)
[2019-01-18] MEDS: THIAMINE 100 MG TAB PO SCH (08:06)
[2019-01-18] MEDS: QUEtiapine FUMARATE 100 MG TAB PO SCH ×2 (08:07→21:30)
[2019-01-18] MEDS: cloNIDine 0.1 MG TAB PO SCH ×3 (08:07→21:32)
[2019-01-18] MEDS: MULTIVITAMINS/MINERALS THERAP 1 TAB PO SCH (08:07)
[2019-01-18] MEDS: DIVALPROEX 250 MG TAB PO SCH ×2 (08:07→21:31)
[2019-01-18] MEDS: CARVedilol 12.5 MG TAB PO SCH ×2 (08:07→21:32)
[2019-01-18] MEDS: LACTOBACILLUS ACIDOPHILUS CAP (BACID) PO SCH (08:07)
[2019-01-18] MEDS: HEPARIN SOD (PORCINE) 5000 UNITS/ML VIAL SC SCH ×2 (08:08→21:34)
[2019-01-18] MEDS: LEVEMIR (INSULIN DETEMIR) 1 UNITS/0.01ML SC SCH (08:09)
[2019-01-18] MEDS: HumaLOG INSULIN (NovoLOG) PER UNIT SC SCH ×4 (08:09→21:29)
[2019-01-18 08:12] LABS: HEMATOCRIT 26.8 % (42.0-52.0); HEMOGLOBIN 8.9 g/dl (13.5-17.5); MEAN CORPUSCULAR HEMOGLOBIN 27.1 pg (27.0-33.0); MEAN CORPUSCULAR HGB CONC 33.2 g/dl (32.0-36.5); MEAN CORPUSCULAR VOLUME 81.7 fl (80.0-96.0); PLATELET COUNT, AUTOMATED 313 10^3/uL (150-450); RED BLOOD COUNT 3.28 10^6/uL (4.30-6.10); WHITE BLOOD COUNT 13.4 10^3/uL (4.0-10.0)
[2019-01-18] MEDS: MORPHINE 4 MG/ML 1ML VIAL/SYRINGE (J2270) IV PRN ×2 (08:19→17:09)
[2019-01-18] MEDS: cefTRIAXone SOD 1 GM in D5W MINI-BAG PLUS 50 ML IV SCH (13:22)
[2019-01-18 14:00] VITALS: BP 179/86
--- NOTE | 2019-01-18 14:14 | IPNPDOC ---
Text Note Date of Service The patient was seen on 01/18/19. NOTE S: patient states pain is more tolerable. Pain is throbbing, constant with i ntermittent sharp episodes. 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 IR attempted drain on 01/12, Surgery consulted and I&D per formed on 01/14 left open to heal by secondary intent and wound culture notable for streptococcus intermedius (sensitive to rocephin). He remains afebrile, he continues to have increasing pain, no signs of compartment syndrome, and continues to have elevated CRP and leukocytosis. 1) LUE Abscess/Swelling due to IVDA U/S of the Ext notable for 3.8 x 2.7 x 6 cm abscess on admission s/p drainage by IR on 01/12 Repeat U/S of the LUE notable for repeat Abscess on 01/14 Blood cultures negative. ; Wound culture notable for streptococcus intermedius - Cont IV Rocephin s/p Surgical Intervention I&D with Dr. Doshi 01/14/19 No signs of compartment syndrome OT with lymphedema wraps Consult dr Calderon (ortho) and Dr Recinos (ID). Will check cardiac echo to r/o endocarditis with recent heroin use. Will check MRI forearm 2) Pain control - pain medications and psych meds adjusted to avoid ov ersedation. 3) Diabetes mellitus - poor control with blood sugars. Levemir increased 2 days ago, will increase again and continue with SSI. 4) Chronic kidney disease stage III probably secondary to essential HTN and DM Serum creatinine improving 4) Peripheral neuropathy due to DM; Continue gabapentin for renally adjusted dose 5) Essential Hypertension Coreg increased - continue prazosin (used for PTSD and HTN). will add clonidine TID (for possible heroin withdraw reflex HTN) 6) Anxiety/depression Continue Seroquel (dose lowered) , Depakote ; the sertaline was changed to cymbalta for better pain and anxiety/depression control, DVT prophylaxis Heparin subcutaneous VS,Fishbone, I+O VS, Fishbone, I+O Laboratory Tests 01/18/19 05:53 Red Blood Count 3.28 L, Mean Corpuscular Volume 81.7, Mean Corpuscular Hemoglobin 27.1, Mean Corpuscular Hemoglobin Concent 33.2, Red Cell Distribution Width 14.4, Calcium Level 7.4 L Vital Signs Date Time Temp Pulse Resp B/P (MAP) Pulse Ox O2 Delivery O2 Flow Rate FiO2 01/18/19 10:42 18 01/18/19 08:07 86 172/78 01/18/19 06:00 98.0 96 01/17/19 09:40 Room Air 01/15/19 11:18 2.0 I&O- Last 24 Hours up to 6 AM 01/18/19 06:00 Intake Total 1610 ml Balance 1610 ml SHAYY SILVEIRA DO Jan 18, 2019 14:14
[2019-01-18] MEDS: AMPICILLIN SOD/SULBACTAM SOD 3 GM in D5W MINI-BAG PLUS 100 ML IV SCH ×2 (16:30→23:15)
--- NOTE | 2019-01-18 17:34 | CR ---
DATE OF CONSULTATION: 01/18/2019 FOR: Dr. Alfaro HISTORY: This is a 48-year-old gentleman who is an intravenous (IV) drug user who had apparently been injecting cocaine approximately a week or so ago and ended up developing some swelling in his left forearm. This has been managed so far by general surgery and apparently had an ultrasound-guided drain and then what sounds like an incision and drainage of his left forearm for what appeared to be more of an intramuscular fluid collection. Apparently he has not responded very well. His white count has been relatively steady. I have discussed the case with Dr. Lieberman briefly. His home medications include Tylenol, carvedilol, divalproex sodium, folic acid, Lasix, Neurontin, Levemir, Humalog, lisinopril, magnesium, mirtazapine, Thera M Plus, oxazepam, Invega Sustenna, potassium chloride, prazosin HCL, quetiapine, sertraline, thiamine. He uses nicotine gum, hydralazine, hydrochlorothiazide and trazodone HCL as needed. ALLERGIES: No known drug allergies. FAMILY HISTORY: Otherwise noncontributory. SOCIAL HISTORY: He is a current smoker, uses illicit drugs. Occasional alcohol use. EXAM: He, on exam, is resting comfortably in no acute distress. He is moving his fingers. He has no pain with passive range of motion of his fingers. He currently has Coban wrapped around his fingers, presumably for swelling. He denies any other areas of discomfort or swelling. The forearm was examined. The compressive dressing was taken down and it appears that there is a surgical incision along the radial aspect of the mid forearm with iodoform packing. The incision may be in the 8-10 cm range. The forearm itself appears to be quite benign. It does not appear to have any signs of compartment syndrome. Again, he can move his fingers reasonably well. There is no pain with passive range of motion of the fingers and no tense areas to be concerned about for compartment syndrome. His laboratories include a white count of 13.4 today, and it has been running in that general range. He had one sedimentation rate that I see listed of 96. His CRP has been trending down and is now 11.4. Cultures show from 01/14/2019, Streptococcus intermedius and from 01/12/2019, Streptococcus intermedius and Prevotella melaninogenica. He has currently been on Rocephin and previously was on apparently clindamycin. Currently, the infectious disease doctor is assessing the patient, Dr. Lieberman. MRI scan is pending. On the most recent CT scan, there was no evidence of fluid collection. This was done 2 days ago. It showed a large wound in the soft tissues 8.4 cm x 2.8 cm and 1.9 cm in height. No abscess or osseous involvement. An MRI should be considered they felt. At this point, the infectious disease specialist feels that perhaps a different antibiotic would be appropriate. There has been compartment pressure monitors done, and these were all felt to be within normal limits. There is currently no sign of any compartment syndrome. I would certainly recommend the MRI scan that I had spoken with the hospitalist about earlier today and that is anticipated for this evening. Otherwise, manage with IV antibiotics. I do not see any obvious orthopedic issues; certainly no evidence of any compartment syndrome on clinical exam and no evidence of persistent abscess. Perhaps a change in antibiotics will help us in his clinical improvement. Will follow along for now. edited: 01/18/2019 [id number] kb GRIFFIN
[2019-01-18] MEDS: PRAZOSIN 1 MG CAP PO SCH (21:31)
[2019-01-18 22:00] VITALS: BP 183/91
[2019-01-18] MEDS ORDERED: PROHANCE 279.3MG/ML 15ML VIAL (A9576) As Ordered ONE (22:34)
[2019-01-18] MEDS ORDERED: PROHANCE 279.3MG/ML 5ML VIAL (A9576) As Ordered ONE (22:34)
--- NOTE | 2019-01-18 23:39 | REPVR ---
EXAM: MR Left Upper Extremity Other Than Joint Without and With Contrast, Forearm. EXAM DATE/TIME: 01/18/2019 11:11 PM CLINICAL HISTORY: 48 years old, male; Condition or disease; Prior surgery; Surgery date: Post-operative (0-2 days); Patient HX: PT has abcess on lt distal forearm lateral aspect from iv drug use, PT has had recent SX to debris, PT was given 18cc prohance; Additional info: Iv heroin use with forearm abscess, S/P surgery TECHNIQUE: Imaging protocol: MR of the Left upper extremity other than joint without and with intravenous contrast. Exam focused on the Forearm. Contrast material: PROHANCE;Contrast volume: 18 ml;Contrast route: 22G ANGIOCATH; COMPARISON: CT-Forearm WITHOUT CONTRAST 01/16/2019 3:43 PM FINDINGS: Bones/joints: No acute marrow edema within the bone marrow of the mid to distal radius or ulna to suggest osteomyelitis. The proximal radius and ulna are limited by artifact and extend out of the field of view of this study. Soft tissues: There is significant soft tissue swelling of the wrist and forearm . There is soft tissue loss involving the lateral forearm, consistent with postoperative change, post-traumatic change, or ulceration. Significant muscle edema is identified with involvement of both flexor and extensor musculature, likely representing myositis. This is most significant lateral to the radius. A loculated collection of fluid is identified in the region of the extensor carpi radialis musculature measuring 4.0 x 0.9 x 11.8 cm, consistent with the clinical history of abscess. Smaller adjacent fluid collections are visualized. There is tenosynovitis of the extensor carpi radialis longus and brevis tendons. There is tenosynovitis of the extensor digitorum tendons versus extension of adjacent soft tissue swelling. IMPRESSION: 1. There is significant soft tissue swelling of the wrist and forearm. Soft tissue loss involving the lateral forearm, consistent with postoperative change, post-traumatic change, or ulceration. 2. Significant muscle edema is identified with involvement of both flexor and extensor musculature, likely representing myositis. This is most significant lateral to the radius. A loculated collection of fluid is identified in the region of the extensor carpi radialis musculature measuring 4.0 x 0.9 x 11.8 cm, consistent with the clinical history of abscess. Smaller adjacent fluid collections are visualized. 3. No acute marrow edema within the bone marrow of the mid to distal radius or ulna to suggest osteomyelitis. 4. There is tenosynovitis of the extensor carpi radialis longus and brevis tendons. 5. Additional findings described above. Electronically signed by: Sharif North On 01/18/2019 23:39:10 PM
[2019-01-19 01:00] VITALS: BP 163/78
[2019-01-19] MEDS: AMPICILLIN SOD/SULBACTAM SOD 3 GM in D5W MINI-BAG PLUS 100 ML IV SCH ×4 (05:04→22:56)
[2019-01-19] MEDS: GABAPENTIN 400 MG CAP PO SCH ×3 (05:04→22:52)
[2019-01-19] MEDS: ACETAMINOPHEN 650MG ER TAB (TYLENOL ARTHRITIS) PO SCH ×3 (05:04→22:50)
[2019-01-19] MEDS: NICOTINE POLACRILEX 2 MG GUM PO PRN ×6 (05:34→20:27)
[2019-01-19] MEDS: oxyCODONE 5MG TAB PO PRN ×4 (05:35→22:56)
[2019-01-19 06:00] VITALS: BP 198/96
[2019-01-19 06:11] LABS: HEMATOCRIT 26.2 % (42.0-52.0); HEMOGLOBIN 8.7 g/dl (13.5-17.5); MEAN CORPUSCULAR HEMOGLOBIN 27.4 pg (27.0-33.0); MEAN CORPUSCULAR HGB CONC 33.2 g/dl (32.0-36.5); MEAN CORPUSCULAR VOLUME 82.6 fl (80.0-96.0); PLATELET COUNT, AUTOMATED 307 10^3/uL (150-450); RED BLOOD COUNT 3.17 10^6/uL (4.30-6.10); WHITE BLOOD COUNT 12.5 10^3/uL (4.0-10.0)
[2019-01-19 06:33] LABS: BLOOD UREA NITROGEN 18 MG/DL (7-18); CALCIUM LEVEL 8.3 MG/DL (8.5-10.1); CARBON DIOXIDE LEVEL 28 MEQ/L (21-32); CHLORIDE LEVEL 104 MEQ/L (98-107); CREATININE FOR GFR 1.44 MG/DL (0.70-1.30); GLOMERULAR FILTRATION RATE > 60.0 (>60); GLUCOSE, FASTING 327 MG/DL (70-100); POTASSIUM SERUM 4.1 MEQ/L (3.5-5.1); SODIUM LEVEL 137 MEQ/L (136-145)
[2019-01-19 06:45] VITALS: BP 148/72
[2019-01-19] MEDS: HEPARIN SOD (PORCINE) 5000 UNITS/ML VIAL SC SCH ×2 (08:11→22:54)
[2019-01-19] MEDS: HumaLOG INSULIN (NovoLOG) PER UNIT SC SCH ×4 (08:11→22:55)
[2019-01-19] MEDS: THIAMINE 100 MG TAB PO SCH (08:12)
[2019-01-19] MEDS: QUEtiapine FUMARATE 100 MG TAB PO SCH ×2 (08:12→22:50)
[2019-01-19] MEDS: FOLIC ACID 1 MG TAB PO SCH (08:12)
[2019-01-19] MEDS: LEVEMIR (INSULIN DETEMIR) 1 UNITS/0.01ML SC SCH (08:12)
[2019-01-19] MEDS: MULTIVITAMINS/MINERALS THERAP 1 TAB PO SCH (08:12)
[2019-01-19] MEDS: LACTOBACILLUS ACIDOPHILUS CAP (BACID) PO SCH (08:12)
[2019-01-19] MEDS: DULoxetine 30 MG CAP (CYMBALTA) PO SCH (08:12)
[2019-01-19] MEDS: CARVedilol 12.5 MG TAB PO SCH ×2 (08:15→22:52)
[2019-01-19] MEDS: cloNIDine 0.1 MG TAB PO SCH ×3 (08:15→22:53)
[2019-01-19] MEDS: DIVALPROEX 250 MG TAB PO SCH ×2 (09:32→22:51)
[2019-01-19 14:00] VITALS: BP 170/88
--- NOTE | 2019-01-19 16:04 | CR ---
DATE OF CONSULTATION: 01/19/2019 Patient seen and examined today at the bedside. He is doing significantly better. Apparently Dr. Pike came by this morning, and at the bedside flushed this wound out and apparently was able to decompress some fluid and tissues, and the patient has felt significantly better since then. He is trying to keep his arm elevated, although it is pretty dependent when I saw him today at the bedside. He has also been modified in terms of his antibiotic regimen, which is now Unasyn. He, on exam, has significantly less swelling noted in the forearm. He has no active current drainage. He is moving his fingers much more readily than he was yesterday and the swelling in his fingers is markedly improved. He reports intact sensation throughout his fingers. The MRI scan done earlier today did show some residual fluid collection that was not apparent on the CT and ultrasounds and this could have been contributing to some of his symptoms, and it appears that he is doing much better since this bedside treatment this morning. And in addition the antibiotic regimen is very likely helping him. Overall, I think he has made significant progress in the past 24 hours. There are absolutely no signs of any compartment syndrome. His compartments feel soft. He has no pain with range of motion or passive range of motion of his fingers. I do not think at this point there are any orthopedic issues. Will sign off for now. Thank you for the consult. Please contact us if there are other orthopedic issues that arise.
--- NOTE | 2019-01-19 19:35 | IPNPDOC ---
Text Note Date of Service The patient was seen on 01/19/19. NOTE S: patient states still with arm pain. area undressed and awaiting surgeon to evaluate. He states no fever. no SOB, no CP, no N O: Vitals as below General: mild to moderate distress, AAOx3 HRRR LCTA Ext: Left upper extremity with open wound, minimal edema when wraps removed. MRI UPPER EXTREM: IMPRESSION: 1. There is significant soft tissue swelling of the wrist and forearm. Soft tissue loss involving the lateral forearm, consistent with postoperative change, post-traumatic change, or ulceration. 2. Significant muscle edema is identified with involvement of both flexor and extensor musculature, likely representing myositis. This is most significant lateral to the radius. A loculated collection of fluid is identified in the region of the extensor carpi radialis musculature measuring 4.0 x 0.9 x 11.8 cm, consistent with the clinical history of abscess. Smaller adjacent fluid collections are visualized. 3. No acute marrow edema within the bone marrow of the mid to distal radius or ulna to suggest osteomyelitis. 4. There is tenosynovitis of the extensor carpi radialis longus and brevis tendons. 5. Additional findings described above.MRI A/P: 1) LUE Abscess/Swelling due to IVDA U/S of the Ext notable for 3.8 x 2.7 x 6 cm abscess on admission s/p drainage by IR on 01/12 Repeat U/S of the LUE notable for repeat Abscess on 01/14 Blood cultures negative. ; Wound culture notable for streptococcus intermedius - s/p Surgical Intervention I&D with Dr. Cardenasuga 01/14/19 Patient seen by surgeon and further abscess fluid drained/expressed today that was seen on MRI (01/19/19) No signs of compartment syndrome; OT with lymphedema wraps Consult dr Calderon (ortho) - no further interventions/signed off on case Consult with Dr Recinos (ID). - case discussed and continue with current antibiotic regimen of unasyn; 2) Pain control - pain medications and psych meds adjusted to avoid oversedation. 3) Diabetes mellitus - poor control with blood sugars. Levemir increased 2 days ago, will increase again and continue with SSI. - BS improving with further treatment of abscess and levemir adjustment - monitor for hypoglycemia. 4) Chronic kidney disease stage III probably secondary to essential HTN and DM Serum creatinine improving 4) Peripheral neuropathy due to DM; Continue gabapentin for renally adjusted dose 5) Essential Hypertension Coreg increased - continue prazosin (used for PTSD and HTN). will add clonidine TID (for possible heroin withdraw reflex HTN) 6) Anxiety/depression Continue Seroquel (dose lowered) , Depakote ; the sertaline was changed to cymbalta for better pain and anxiety/depression control, DVT prophylaxis Heparin subcutaneous VS,Fishbone, I+O VS, Fishbone, I+O Laboratory Tests 01/19/19 05:31 Red Blood Count 3.17 L, Mean Corpuscular Volume 82.6, Mean Corpuscular Hemoglobin 27.4, Mean Corpuscular Hemoglobin Concent 33.2, Red Cell Distribution Width 14.4, Calcium Level 8.3 L Vital Signs Date Time Temp Pulse Resp B/P (MAP) Pulse Ox O2 Delivery O2 Flow Rate FiO2 01/19/19 09:57 16 01/19/19 08:15 85 170/76 01/19/19 06:00 97.5 96 01/17/19 09:40 Room Air 01/15/19 11:18 2.0 l I&O- Last 24 Hours up to 6 AM 01/19/19 06:00 Intake Total 2180 ml Output Total 0 ml Balance 2180 ml SHAYY SILVEIRA DO Jan 19, 2019 11:09
--- NOTE | 2019-01-19 20:46 | IPN ---
DATE: 01/19/2019 Mr. Virk is doing a little better today. He states the pain in his left forearm has slightly decreased and edema as well. He is able to move his fingers better. He has had no fever or chills. The wound was examined in the presence of Dr. Pike who did some irrigation. He has no nausea, vomiting, diarrhea. No abdominal pain. No fever or chills. Temperature is 97.5, pulse 85, respirations 20, blood pressure 198/96, oxygen saturation 96% on room air. Heart: Normal S1-S2. No murmurs. Lungs are clear. No wheezes, rales or rhonchi. Abdomen: Soft, nontender. Extremities: +1 pitting edema bilaterally. Left forearm has an incision measuring about 10 x 4 cm, muscle was exposed. There is purulent discharge, edema, +1 pitting along the arm. LABORATORY DATA: White count 12.5, hemoglobin 8.7, hematocrit 26.2, platelets 307. Sodium 137, potassium 4.1, chloride 104, bicarbonate 28, BUN 18, creatinine 1.44, glucose 327, calcium 8.3, CRP 10.7. The wound culture final Streptococcus intermedius Prevotella melaninogenica IMAGING STUDIES: Magnetic Resonance Imaging (MRI) shows a 4 x 11.8 cm abscess along the extensor carpi radialis musculature, tenosynovitis of the extensor carpi radialis longus and brevis tendons. IMPRESSION: 1. Left forearm abscess with Streptococcus and Prevotella on IV Unasyn. There is a deep abscess also that needs further drainage, but is connecting to the previous area that has been drained. Associated with tenosynovitis. 2. History of IV drug use, mostly crack cocaine and omero. The patient wants to go to inpatient rehab unit. 3. History of insulin-dependent diabetes, glucose still not well controlled with sugars running between 250-400. PLAN: Continue IV Unasyn and further I and D at the bedside was attempted by Dr. Pike. Will continue to do irrigation and monitor white count, C-reactive protein (CRP), IV antibiotic. If no clinical improvement, further debridement, I and D in the operating room may be attempted if no improvement.
[2019-01-19 22:00] VITALS: BP 150/88
--- NOTE | 2019-01-19 22:20 | CR ---
DATE OF CONSULTATION: 01/19/2019 INFECTIOUS CONSULTATION Asked to consult by Dr. Alfaro for evaluation of left arm abscess in a patient with a history of intravenous (IV) drug abuse. HISTORY OF PRESENT ILLNESS: Mr. Virk is a 48-year-old gentleman with a history of insulin-dependent diabetes, polysubstance abuse, who had been injecting IV cocaine into his arm, and developed 3 days prior to admission severe pain. He had no associated fever or chills. The patient developed an abscess and was admitted to the hospital. He was started on IV clindamycin with probiotics with minimal improvement. He was seen in consultation by Dr. Pike and Dr Calderon who reccommended continued antibiotics and MRI. On 01/14/2019, Dr. Doshi saw the patient and measured the compartment pressures, all were within normal. The patient had an incision and drainage (I and D) done and cultures were positive for Streptococcus intermedius, that was resistant to clindamycin, and Prevotella melaninogenica. The patient was switched to IV Rocephin on 01/15/2019 after results of cultures, but the patient still has persistent significant pain and leukocytosis. PAST MEDICAL HISTORY: His past medical history is significant for insulin-dependent diabetes with history of noncompliance and diabetic ketoacidosis (DKA), polysubstance abuse, including alcohol, crack cocaine and omero, significant psychiatric disorder with depression, schizoaffective disorder, multiple psych admissions recently with suicidal ideations. Drug addiction. Recent history of anasarca. Diabetic neuropathy. ALLERGIES: No known drug allergies. FAMILY HISTORY: Did not obtain. SOCIAL HISTORY: He is a smoker. He smokes crack cocaine. He drinks alcohol heavily. He uses IV drugs. He is from [facility], and he recently lost his mother and brother and since then, he has had worsening depression. He moved up from the [facility] to get himself clean. MEDICATIONS: Levemir 30 units subcu daily, oxycodone 5 mg by mouth every 4 hours as needed, clonidine 0.1 mg by mouth three times a day, Cymbalta 90 mg by mouth daily, gabapentin 400 mg by mouth every 8 hours, Seroquel 300 mg by mouth nightly, tramadol one tablet by mouth every 4 hours as needed, insulin sliding scale, nicotine gum as needed, morphine as needed, prazosin 4 mg by mouth nightly, folic acid 1 mg by mouth daily, multivitamin one tablet daily, thiamine 100 mg by mouth daily, heparin subcu 5000 units every 12 hours, probiotics one tablet by mouth daily, Coreg 25 mg by mouth twice a day, Depakote 750 mg by mouth twice a day, and Tylenol as needed. LABORATORY: White count 12.5, hemoglobin 8.7, hematocrit 26.2, platelets 307. His white count on admission was 10.2. Chemistry: Sodium 137, potassium 4.1, chloride 104, bicarbonate 28, BUN 18, creatinine 1.44, glucose 327, calcium 8.3, CRP 10.7 down from 22.1. Alcohol level on admission was 0.007, beta-hydroxybutyrate 40.2. HIV negative. Hepatitis C positive with positive RNA. Blood cultures, two sets, 01/11/2019 were negative. Wound culture was positive for Streptococcus intermedius, resistant to clindamycin, and Prevotella melaninogenica. Extremity MRI done at 5:00 p.m. showed significant soft tissue swelling of the wrist and forearm, significant muscle edema identified with involvement of flexor and extensor musculature, representing probably myositis and a loculated collection is identified in the region of the extensor carpi radialis measuring 4 x 11 x 0.9 cm consistent with an abscess. No acute bone marrow edema. Tenosynovitis of the extensor radialis longus and brevis. Abscess drainage was done on 01/12/2019 by interventional radiology and only 0.5 mL of bloody purulent fluid was drained. Liver ultrasound done on a previous admission showed two hypoechoic nodules in the pancreatic head, one measuring up to 2.1 cm, the other one 1.6 cm, nonspecific. Possibly peripancreatic lymph nodes. Consider pancreatic MRI. PHYSICAL EXAMINATION: On physical exam, he a healthy looking black man in discomfort from arm pain. He had a fever of 102.8 on 01/14/2019 but has been afebrile for the past 3 days. Temperature is 97.5, pulse 85, respirations 20, blood pressure 198/96, oxygen saturation (O2) saturation 96% on room air. Heart: Normal S1, S2. No murmurs, rubs or gallops. Lungs: Clear. No wheezes, rales or rhonchi. Abdomen: Soft, nontender. No hepatosplenomegaly. Back: No costovertebral angle tenderness. Extremities: +1 pitting edema bilaterally. Left arm - significant swelling from the fingers all the way to the biceps. There is an open incision measuring about 10 cm x 5 cm with granulation tissue, significant tenderness. Could not examine his arm due to severe pain and patient crying. There is no purulent discharge on the dressing but serosanguineous discharge. There is no significant surrounding cellulitis. The patient is able to move his wrist and his fingers in spite of significant swelling. IMPRESSION: This is a 48-year-old gentleman who was admitted with a history of IV drug abuse, cocaine, alcohol abuse and polymicrobial forearm abscess with cultures positive for Streptococcus and Prevotella. He has received initially clindamycin for the first 4 days and Streptococcus was resistant and currently is on IV Rocephin, which would not cover anaerobes. This is probably the reason for his slow improvement with a persistent abscess that needs to be drained according to MRI finding. PLAN: Discontinue IV Rocephin, switch to Unasyn 3.1 grams every 6 hours. Consider further surgical intervention for draining of the second collection that was seen on MRI. The patient was seen in the presence of Dr. Calderon last night. Chronic hepatitis C will need to be addressed as an outpatient once the patient is sober. Thank you for the consultation. GRIFFIN
[2019-01-19] MEDS: PRAZOSIN 1 MG CAP PO SCH (22:51)
[2019-01-20] MEDS: oxyCODONE 5MG TAB PO PRN ×4 (00:10→23:25)
[2019-01-20] MEDS: NICOTINE POLACRILEX 2 MG GUM PO PRN ×6 (04:42→21:24)
[2019-01-20] MEDS: AMPICILLIN SOD/SULBACTAM SOD 3 GM in D5W MINI-BAG PLUS 100 ML IV SCH ×4 (04:43→21:24)
[2019-01-20] MEDS: ACETAMINOPHEN 650MG ER TAB (TYLENOL ARTHRITIS) PO SCH ×3 (05:25→21:25)
[2019-01-20] MEDS: GABAPENTIN 400 MG CAP PO SCH ×3 (05:25→21:25)
[2019-01-20 06:00] VITALS: BP 170/98
[2019-01-20 07:16] LABS: HEMATOCRIT 24.7 % (42.0-52.0); HEMOGLOBIN 8.3 g/dl (13.5-17.5); MEAN CORPUSCULAR HEMOGLOBIN 27.8 pg (27.0-33.0); MEAN CORPUSCULAR HGB CONC 33.6 g/dl (32.0-36.5); MEAN CORPUSCULAR VOLUME 82.6 fl (80.0-96.0); PLATELET COUNT, AUTOMATED 307 10^3/uL (150-450); RED BLOOD COUNT 2.99 10^6/uL (4.30-6.10); WHITE BLOOD COUNT 10.6 10^3/uL (4.0-10.0)
[2019-01-20 07:46] LABS: ALBUMIN 1.1 GM/DL (3.2-5.2); ALT/SGPT 27 U/L (12-78); BILIRUBIN,TOTAL 0.1 MG/DL (0.2-1.0); BLOOD UREA NITROGEN 15 MG/DL (7-18); CALCIUM LEVEL 8.1 MG/DL (8.5-10.1); CARBON DIOXIDE LEVEL 29 MEQ/L (21-32); CHLORIDE LEVEL 105 MEQ/L (98-107); CREATININE FOR GFR 1.27 MG/DL (0.70-1.30); GLOMERULAR FILTRATION RATE > 60.0 (>60); GLUCOSE, FASTING 195 MG/DL (70-100); SODIUM LEVEL 141 MEQ/L (136-145); TOTAL PROTEIN 5.9 GM/DL (6.4-8.2)
[2019-01-20] MEDS: HumaLOG INSULIN (NovoLOG) PER UNIT SC SCH ×4 (09:06→21:00)
[2019-01-20] MEDS: HEPARIN SOD (PORCINE) 5000 UNITS/ML VIAL SC SCH ×2 (09:06→21:27)
[2019-01-20] MEDS: DIVALPROEX 250 MG TAB PO SCH ×2 (09:07→21:24)
[2019-01-20] MEDS: MULTIVITAMINS/MINERALS THERAP 1 TAB PO SCH (09:07)
[2019-01-20] MEDS: QUEtiapine FUMARATE 100 MG TAB PO SCH ×2 (09:07→21:25)
[2019-01-20] MEDS: LEVEMIR (INSULIN DETEMIR) 1 UNITS/0.01ML SC SCH ×2 (09:07→21:29)
[2019-01-20] MEDS: FOLIC ACID 1 MG TAB PO SCH (09:08)
[2019-01-20] MEDS: DULoxetine 30 MG CAP (CYMBALTA) PO SCH (09:08)
[2019-01-20] MEDS: LACTOBACILLUS ACIDOPHILUS CAP (BACID) PO SCH (09:08)
[2019-01-20] MEDS: cloNIDine 0.1 MG TAB PO SCH ×3 (09:08→21:27)
[2019-01-20] MEDS: THIAMINE 100 MG TAB PO SCH (09:08)
[2019-01-20] MEDS: CARVedilol 12.5 MG TAB PO SCH ×2 (09:09→21:26)
[2019-01-20 14:00] VITALS: BP 148/80
--- NOTE | 2019-01-20 19:45 | IPNPDOC ---
Text Note Date of Service The patient was seen on 01/20/19. NOTE S: patient states pain worse but increased mobility and less swelling to arm. States he is having hard time getting pain medications from nursing . States nurse expressed /flushed wound this AM without pain medications prior to procedure. He states no hand parathesia. O: Vitals as below General: moderate pain, unable to find position of comfort Heart - tachycardic LCTA Ext: left upper arm with 1+edema; bandage intact, able to make full fist with hand (improved/less swelling). radial pulse intact A/P: 1) LUE Abscess/Swelling due to IVDA U/S of the Ext notable for 3.8 x 2.7 x 6 cm abscess on admission s/p drainage by IR on 01/12 Repeat U/S of the LUE notable for repeat Abscess on 01/14 Blood cultures negative. ; Wound culture notable for streptococcus intermedius - s/p Surgical Intervention I&D with Dr. Doshi 01/14/19 Patient seen by surgeon and further abscess fluid drained/expressed today that was seen on MRI (01/19/19) No signs of compartment syndrome; OT with lymphedema wraps Consult dr Calderon (ortho) - no further interventions/signed off on case Consult with Dr Recinos (ID). - case discussed and continue with current antibiotic regimen of unasyn; 2) Pain control - pain medications and psych meds adjusted to avoid oversedation. Will increase morphine to 2mg IV prior to dressing changes and scheduled oxycodone. use tramadol for break thru pain. Discussed with nursing staff 3) Diabetes mellitus - poor control with blood sugars. no hypoglycemia. BS ranging 190-330 today. continue SSI and levemir dose increased. 4) Chronic kidney disease stage III probably secondary to essential HTN and DM Serum creatinine improving 4) Peripheral neuropathy due to DM; Continue gabapentin for renally adjusted dose 5) Essential Hypertension Coreg increased - continue prazosin (used for PTSD and HTN). will add clonidine TID (for possible heroin withdraw reflex HTN) 6) Anxiety/depression Continue Seroquel (dose lowered) , Depakote ; the sertaline was changed to cymbalta for better pain and anxiety/depression control, DVT prophylaxis Heparin subcutaneous VS,Fishbone, I+O VS, Fishbone, I+O Laboratory Tests 01/20/19 06:38 Red Blood Count 2.99 L, Mean Corpuscular Volume 82.6, Mean Corpuscular Hemoglobin 27.8, Mean Corpuscular Hemoglobin Concent 33.6, Red Cell Distribution Width 14.6 H, Calcium Level 8.1 L, Aspartate Amino Transf (AST/SGOT) 29, Alanine Aminotransferase (ALT/SGPT) 27, Alkaline Phosphatase 119 H, Total Bilirubin 0.1 L, Total Protein 5.9 L, Albumin 1.1 L Vital Signs Date Time Temp Pulse Resp B/P (MAP) Pulse Ox O2 Delivery O2 Flow Rate FiO2 01/20/19 10:48 16 01/20/19 09:09 82 176/91 01/20/19 06:00 97.4 98 01/17/19 09:40 Room Air 01/15/19 11:18 2.0 I&O- Last 24 Hours up to 6 AM 01/20/19 06:00 Intake Total 1920 ml Output Total 0 ml Balance 1920 ml SHAYY SILVEIRA DO Jan 20, 2019 14:49
[2019-01-20] MEDS: PRAZOSIN 1 MG CAP PO SCH (21:25)
[2019-01-20] MEDS: MORPHINE 4 MG/ML 1ML VIAL/SYRINGE (J2270) IV PRN (21:32)
[2019-01-20 22:00] VITALS: BP 200/88
[2019-01-21] MEDS: AMPICILLIN SOD/SULBACTAM SOD 3 GM in D5W MINI-BAG PLUS 100 ML IV SCH ×4 (04:27→22:08)
[2019-01-21 06:00] VITALS: BP 160/62
[2019-01-21] MEDS: oxyCODONE 5MG TAB PO PRN ×3 (06:16→18:17)
[2019-01-21] MEDS: NICOTINE POLACRILEX 2 MG GUM PO PRN ×5 (06:16→22:08)
[2019-01-21] MEDS: ACETAMINOPHEN 650MG ER TAB (TYLENOL ARTHRITIS) PO SCH ×3 (06:16→22:08)
[2019-01-21] MEDS: GABAPENTIN 400 MG CAP PO SCH ×3 (06:16→22:08)
[2019-01-21] MEDS: LEVEMIR (INSULIN DETEMIR) 1 UNITS/0.01ML SC SCH ×2 (09:14→22:08)
[2019-01-21] MEDS: HEPARIN SOD (PORCINE) 5000 UNITS/ML VIAL SC SCH ×2 (09:15→22:07)
[2019-01-21] MEDS: HumaLOG INSULIN (NovoLOG) PER UNIT SC SCH ×4 (09:15→22:07)
[2019-01-21] MEDS: THIAMINE 100 MG TAB PO SCH (09:16)
[2019-01-21] MEDS: LACTOBACILLUS ACIDOPHILUS CAP (BACID) PO SCH (09:16)
[2019-01-21] MEDS: DULoxetine 30 MG CAP (CYMBALTA) PO SCH (09:16)
[2019-01-21] MEDS: DIVALPROEX 250 MG TAB PO SCH ×2 (09:16→22:06)
[2019-01-21] MEDS: MULTIVITAMINS/MINERALS THERAP 1 TAB PO SCH (09:16)
[2019-01-21] MEDS: cloNIDine 0.1 MG TAB PO SCH ×3 (09:16→22:05)
[2019-01-21] MEDS: FOLIC ACID 1 MG TAB PO SCH (09:16)
[2019-01-21] MEDS: QUEtiapine FUMARATE 100 MG TAB PO SCH ×2 (09:17→22:07)
[2019-01-21] MEDS: CARVedilol 12.5 MG TAB PO SCH ×2 (09:17→22:06)
[2019-01-21] MEDS: MORPHINE 4 MG/ML 1ML VIAL/SYRINGE (J2270) IV PRN ×2 (10:52→23:22)
--- NOTE | 2019-01-21 13:30 | IPNPDOC ---
Text Note Date of Service The patient was seen on 01/21/19. NOTE S: patient states pain is manageable with new regimen. He is able to move his hand,wrist and fingers/more flexible. He is having dressing changes with hydrogen peroxide irrigation BID by nursing staff O: Vitals as below General: pleasant NAD AAOx3 HRRR no murmur LCTA no W/R/R Ext: no ankle edema; ambulating in room; right forearm with large excision, healing by secondary intent, no surrounding skin erythema; deep wound with removal of iodoform guaze (white thick slimy pus attached). A/P: 1. Left forearm abscess (secondary to IVDA) growing Streptococcus and Prevotella on IV Unasyn. ID & surgery consulted. Monitor daily CRP. U/S of the Ext notable for 3.8 x 2.7 x 6 cm abscess on admission s/p drainage by IR on 01/12 Repeat U/S of the LUE notable for repeat Abscess on 01/14 MRI with large 11cm abcess on 01/19/19 Blood cultures negative. ; Wound culture notable for streptococcus and prevotella s/p Surgical Intervention I&D with Dr. Doshi 01/14/19 s/p bedside I&D abscess by Dr Pike (01/19/19) No signs of compartment syndrome; OT with lymphedema wraps Consult dr Calderon (ortho) - no further interventions/signed off on case Consult with Dr Recinos (ID). - case discussed and continue with current antibiotic regimen of unasyn; 2. Left forearm tenosynovitis - PT/OT consulted. continue current treatment plan as above 3. Pain control - pain medications and psych meds adjusted to avoid oversedation. Will increase morphine to 2mg IV prior to dressing changes and scheduled oxycodone. use tramadol for break thru pain. Discussed with nursing staff 4. History of IV drug abuse - (crack cocaine/omero) - interested in inpatient rehab unit 5. Diabetes mellitus - poor control with blood sugars. no hypoglycemia. BS ranging 170-300 today. continue SSI and levemir dose increased. 6. Chronic kidney disease stage III probably secondary to essential HTN and DM - RESOLVED 7. Peripheral neuropathy due to DM; Continue gabapentin for renally adjusted dose 8. Essential Hypertension - continue Coreg,prazosin,clonidine TID 9 Anxiety/depression Continue Seroquel (dose lowered) , Depakote ; the sertaline was changed to cymbalta for better pain and anxiety/depression control, DVT prophylaxis Heparin subcutaneous VS,Fishbone, I+O VS, Fishbone, I+O Vital Signs Date Time Temp Pulse Resp B/P (MAP) Pulse Ox O2 Delivery O2 Flow Rate FiO2 01/21/19 12:30 16 01/21/19 09:17 83 160/62 01/21/19 06:00 98.2 95 01/17/19 09:40 Room Air 01/15/19 11:18 2.0 I&O- Last 24 Hours up to 6 AM 01/21/19 06:00 Intake Total 1600 ml Output Total 0 ml Balance 1600 ml SHAYY SILVEIRA DO Jan 21, 2019 13:30
[2019-01-21 14:16] VITALS: BP 179/87
[2019-01-21 22:00] VITALS: BP 180/78
[2019-01-21] MEDS: PRAZOSIN 1 MG CAP PO SCH (22:06)
[2019-01-22] MEDS: NICOTINE POLACRILEX 2 MG GUM PO PRN ×6 (00:42→22:38)
[2019-01-22 02:00] VITALS: BP 172/88
[2019-01-22 06:00] VITALS: BP 148/78
[2019-01-22 06:12] LABS: BASO % 0.3 % (0.0-1.0); EOS # 0.2 10^3/uL (0.0-0.50); EOS % 2.6 % (0.0-3.0); HEMATOCRIT 25.3 % (42.0-52.0); HEMOGLOBIN 8.2 g/dl (13.5-17.5); LYMPH # 3.1 10^3/uL (1.5-4.5); LYMPH % 38.6 % (24.0-44.0); MEAN CORPUSCULAR HEMOGLOBIN 27.3 pg (27.0-33.0); MEAN CORPUSCULAR HGB CONC 32.4 g/dl (32.0-36.5); MEAN CORPUSCULAR VOLUME 84.3 fl (80.0-96.0); MONO # 1.1 10^3/uL (0.0-0.8); MONO % 13.5 % (0.0-5.0); NEUTROPHILS # 3.4 10^3/uL (1.8-7.7); NEUTROPHILS % 42.6 % (36.0-66.0); PLATELET COUNT, AUTOMATED 313 10^3/uL (150-450)
[2019-01-22] MEDS: ACETAMINOPHEN 650MG ER TAB (TYLENOL ARTHRITIS) PO SCH ×3 (06:16→22:15)
[2019-01-22] MEDS: AMPICILLIN SOD/SULBACTAM SOD 3 GM in D5W MINI-BAG PLUS 100 ML IV SCH ×4 (06:16→22:15)
[2019-01-22] MEDS: GABAPENTIN 400 MG CAP PO SCH ×3 (06:16→22:15)
[2019-01-22 06:34] LABS: BLOOD UREA NITROGEN 12 MG/DL (7-18); C REACTIVE PROTEIN QUANTITATIV 4.74 MG/DL (0.00-0.30); CALCIUM LEVEL 7.5 MG/DL (8.5-10.1); CARBON DIOXIDE LEVEL 31 MEQ/L (21-32); CHLORIDE LEVEL 103 MEQ/L (98-107); CREATININE FOR GFR 1.53 MG/DL (0.70-1.30); GLOMERULAR FILTRATION RATE > 60.0 (>60); GLUCOSE, FASTING 303 MG/DL (70-100); SODIUM LEVEL 138 MEQ/L (136-145)
[2019-01-22 07:16] LABS: ERYTHROCYTE SEDIMENTATION RATE 126 mm/hr (0-15)
--- NOTE | 2019-01-22 08:49 | IPN ---
DATE: 01/19/2019 The patient's overall temperature has been good. He has been afebrile. His white count diminished a little bit today. Yesterday it went up and really did not change the packing or anything else, but what appears to be is an abscess developing deeper in the incision site. You can actually track the abscess up through a small hole on the MRI up to the surface. However, I wonder if the packing is actually plugging the opening. In any case, the patient states that overall his hand is feeling better. He is moving his hand better. He is moving that well. He states the pain is still mostly in his forearm area. He is not complaining of any specific numbness or tingling in his hand and overall states that things are a little bit better than they were yesterday. On his physical exam, his packing was removed. Dr. Lieberman was present while we were examining the wound. There is some obvious purulent material coming up from deeper underneath. I was able to irrigate this out and express some of this and it appears that there is an obvious pocket that was not opened that has either re-closed or has been inadequately draining at this point. Probably reformed yesterday given the white count elevation yesterday. IMPRESSION AND PLAN: The patient's abscess forearm seems to be better drained at this point. I irrigated this copiously and eventually this was coming out clear. I anticipate at this point we have got a better handle on this drainage site. I was able to probe both more proximal and distal of the forearm from this incision at least a couple centimeters each way. With the irrigation it seems much better and at the end of the irrigation at the bedside, the patient was actually able to move his fingers a little bit better. We then modified his dressing changes to be done more frequently just in case the packing does seem to close off the opening at least decompressing it. Irrigating this a little bit more with some peroxide to get the necrotic debris out of the base of this I feel should be reasonable. Otherwise, the superficial tissue looks relatively healthy and viable clean does not need any significant debridement. The patient seems to be better after this procedure but will see how it goes over the next several days. Would recommend a little more aggressive dressing changes. I had mentioned to the patient possible wound vacuum-assisted closure (VAC) on the dressing as well as to the nursing staff, but I feel that this would also keep it as a closed environment. Thus, I would like to avoid that situation for now and reassess this next week.
[2019-01-22] MEDS: HumaLOG INSULIN (NovoLOG) PER UNIT SC SCH ×4 (10:28→22:15)
[2019-01-22] MEDS: DULoxetine 30 MG CAP (CYMBALTA) PO SCH (10:29)
[2019-01-22] MEDS: HEPARIN SOD (PORCINE) 5000 UNITS/ML VIAL SC SCH ×2 (10:29→22:14)
[2019-01-22] MEDS: LEVEMIR (INSULIN DETEMIR) 1 UNITS/0.01ML SC SCH ×2 (10:29→22:15)
[2019-01-22] MEDS: LACTOBACILLUS ACIDOPHILUS CAP (BACID) PO SCH (10:30)
[2019-01-22] MEDS: DIVALPROEX 250 MG TAB PO SCH ×2 (10:30→22:14)
[2019-01-22] MEDS: cloNIDine 0.1 MG TAB PO SCH ×3 (10:30→22:13)
[2019-01-22] MEDS: MULTIVITAMINS/MINERALS THERAP 1 TAB PO SCH (10:30)
[2019-01-22] MEDS: FOLIC ACID 1 MG TAB PO SCH (10:30)
[2019-01-22] MEDS: THIAMINE 100 MG TAB PO SCH (10:30)
[2019-01-22] MEDS: CARVedilol 12.5 MG TAB PO SCH ×2 (10:31→22:13)
[2019-01-22] MEDS: QUEtiapine FUMARATE 100 MG TAB PO SCH ×2 (10:32→22:37)
[2019-01-22] MEDS: MORPHINE 4 MG/ML 1ML VIAL/SYRINGE (J2270) IV PRN ×3 (10:51→22:39)
[2019-01-22] MEDS: oxyCODONE 5MG TAB PO PRN ×2 (12:23→18:36)
[2019-01-22 14:00] VITALS: BP 180/60
--- NOTE | 2019-01-22 19:38 | IPNPDOC ---
Text Note Date of Service The patient was seen on 01/22/19. NOTE S: patient seen this AM at 0800 and sleeping but easily awakens. States pain is better controlled with scheduled oxycodone. O: Vitals as below General: pleasant NAD AAOx3 HRRR no murmur LCTA no W/R/R Ext: no ankle edema; right forearm bandage intact (see surgery note for evaluation) A/P: 1. Left forearm abscess (secondary to IVDA) growing Streptococcus and Prevotella on IV Unasyn. ID & surgery consulted. Monitor daily CRP. U/S of the Ext notable for 3.8 x 2.7 x 6 cm abscess on admission s/p drainage by IR on 01/12 Repeat U/S of the LUE notable for repeat Abscess on 01/14 MRI with large 11cm abcess on 01/19/19 Blood cultures negative. ; Wound culture notable for streptococcus and prevotella - on unasyn s/p Surgical Intervention I&D with Dr. Cardenasuga 01/14/19 s/p bedside I&D abscess by Dr Pike (01/19/19 and 01/22/19) No signs of compartment syndrome; OT with lymphedema wraps Consult dr Calderon (ortho) - no further interventions/signed off on case Consult with Dr Recinos (ID). - case discussed and continue with current antibiotic regimen of unasyn; 2. Left forearm tenosynovitis - PT/OT consulted. continue current treatment plan as above 3. Pain control - pain medications and psych meds adjusted to avoid oversedation. morphine to 2mg IV prior to dressing changes and scheduled oxycodone. use tramadol for break thru pain. Discussed with nursing staff 4. History of IV drug abuse - (crack cocaine/omero) - interested in inpatient rehab unit 5. Diabetes mellitus - poor control with blood sugars. no hypoglycemia. BS ranging 146-303 today. continue SSI and levemir dose increased on 01/21/19. 6. Chronic kidney disease stage III probably secondary to essential HTN and DM - RESOLVED 7. Peripheral neuropathy due to DM; Continue gabapentin for renally adjusted dose 8. Essential Hypertension - continue Coreg,prazosin,clonidine TID 9 Anxiety/depression Continue Seroquel (dose lowered) , Depakote ; the sertaline was changed to cymbalta for better pain and anxiety/depression control, VS,Fishbone, I+O VS, Fishbone, I+O Laboratory Tests 01/22/19 05:18 Red Blood Count 3.00 L, Mean Corpuscular Volume 84.3, Mean Corpuscular Hemoglobin 27.3, Mean Corpuscular Hemoglobin Concent 32.4, Red Cell Distribution Width 15.1 H, Neutrophils (%) (Auto) 42.6, Lymphocytes (%) (Auto) 38.6, Monocytes (%) (Auto) 13.5 H, Eosinophils (%) (Auto) 2.6, Basophils (%) (Auto) 0. 3, Neutrophils # (Auto) 3.4, Lymphocytes # (Auto) 3.1, Monocytes # (Auto) 1.1 H, Eosinophils # (Auto) 0.2, Basophils # (Auto) 0.0, Calcium Level 7.5 L Vital Signs Date Time Temp Pulse Resp B/P (MAP) Pulse Ox O2 Delivery O2 Flow Rate FiO2 01/22/19 18:36 22 01/22/19 15:00 148/78 01/22/19 14:00 97.8 79 97 01/17/19 09:40 Room Air I&O- Last 24 Hours up to 6 AM 01/22/19 06:00 Intake Total 2512 ml Output Total 0 ml Balance 2512 ml SHAYY SILVEIRA DO Jan 22, 2019 19:38
[2019-01-22 22:00] VITALS: BP 210/94
[2019-01-22] MEDS: PRAZOSIN 1 MG CAP PO SCH (22:14)
[2019-01-23] VITALS (9 sets, daily range): BP systolic 176–220; BP diastolic 78–100
[2019-01-23] MEDS: AMPICILLIN SOD/SULBACTAM SOD 3 GM in D5W MINI-BAG PLUS 100 ML IV SCH ×4 (05:04→21:55)
[2019-01-23] MEDS: GABAPENTIN 400 MG CAP PO SCH ×3 (05:04→21:53)
[2019-01-23] MEDS: ACETAMINOPHEN 650MG ER TAB (TYLENOL ARTHRITIS) PO SCH ×3 (05:05→21:52)
[2019-01-23] MEDS: NICOTINE POLACRILEX 2 MG GUM PO PRN ×6 (05:42→22:01)
[2019-01-23] MEDS: oxyCODONE 5MG TAB PO PRN ×2 (05:42→15:14)
[2019-01-23 06:12] LABS: BASO % 0.3 % (0.0-1.0); EOS # 0.2 10^3/uL (0.0-0.50); EOS % 2.5 % (0.0-3.0); HEMATOCRIT 22.4 % (42.0-52.0); HEMOGLOBIN 7.3 g/dl (13.5-17.5); LYMPH # 2.6 10^3/uL (1.5-4.5); LYMPH % 43.5 % (24.0-44.0); MEAN CORPUSCULAR HEMOGLOBIN 28.2 pg (27.0-33.0); MEAN CORPUSCULAR HGB CONC 32.6 g/dl (32.0-36.5); MEAN CORPUSCULAR VOLUME 86.5 fl (80.0-96.0); MONO # 0.7 10^3/uL (0.0-0.8); MONO % 11.5 % (0.0-5.0); NEUTROPHILS # 2.5 10^3/uL (1.8-7.7); NEUTROPHILS % 40.9 % (36.0-66.0); PLATELET COUNT, AUTOMATED 274 10^3/uL (150-450); RED BLOOD COUNT 2.59 10^6/uL (4.30-6.10); WHITE BLOOD COUNT 6.1 10^3/uL (4.0-10.0)
[2019-01-23 06:49] LABS: C REACTIVE PROTEIN QUANTITATIV 2.47 MG/DL (0.00-0.30); CALCIUM LEVEL 6.5 MG/DL (8.5-10.1); CREATININE FOR GFR 1.79 MG/DL (0.70-1.30); GLOMERULAR FILTRATION RATE 52.3 (>60); POTASSIUM SERUM 3.3 MEQ/L (3.5-5.1)
[2019-01-23] MEDS: cloNIDine 0.1 MG TAB PO SCH ×3 (06:56→21:53)
[2019-01-23] MEDS: CARVedilol 12.5 MG TAB PO SCH ×2 (06:57→21:54)
[2019-01-23] MEDS ORDERED: INSULIN IV RATE CHANGE DOCUMENTATION ML/HR XX SCH (07:00)
[2019-01-23 07:17] LABS: ERYTHROCYTE SEDIMENTATION RATE 126 mm/hr (0-15)
[2019-01-23 07:18] LABS: ABG BASE EXCESS 3.2 (-2.0-2.0); ABG HCO3 26.8 MEQ/L (22.0-26.0); ABG O2 SATURATION 96.3 % (95.0-99.0); ABG PARTIAL PRESSURE CO2 37.1 mmHg (35.0-45.0); ABG PARTIAL PRESSURE O2 85.2 mmHg (75.0-100.0); ABG STANDARD HCO3 27.3 MEQ/L (22.0-26.0); ABG pH (ARTERIAL) 7.477 UNITS (7.350-7.450)
[2019-01-23] MEDS ORDERED: NS 1,000 ML IV ONE (07:45)
[2019-01-23] MEDS ORDERED: KCL 40MEQ in NS 1000ML 1,000 ML IV SCH (08:00)
[2019-01-23] MEDS ORDERED: INSULIN HUMAN REGULAR 100 UNITS in NS 99 ML IV SCH ×2 (08:00→09:00)
[2019-01-23 08:11] LABS: ACETONE/KETONE 0.68 MG/DL (<2.81); BLOOD UREA NITROGEN 12 MG/DL (7-18); CALCIUM LEVEL 7.8 MG/DL (8.5-10.1); CARBON DIOXIDE LEVEL 31 MEQ/L (21-32); CHLORIDE LEVEL 104 MEQ/L (98-107); CREATININE FOR GFR 1.49 MG/DL (0.70-1.30); GLOMERULAR FILTRATION RATE > 60.0 (>60); GLUCOSE, FASTING 294 MG/DL (70-100); POTASSIUM SERUM 4.3 MEQ/L (3.5-5.1); SODIUM LEVEL 140 MEQ/L (136-145); TROPONIN I < 0.02 NG/ML (< 0.10)
[2019-01-23 08:39] LABS: OSMOLALITY SERUM 301 MOSM/KG (275-295)
[2019-01-23] MEDS: MORPHINE 4 MG/ML 1ML VIAL/SYRINGE (J2270) IV PRN ×2 (09:51→18:38)
[2019-01-23] MEDS: HEPARIN SOD (PORCINE) 5000 UNITS/ML VIAL SC SCH ×2 (09:51→21:54)
[2019-01-23] MEDS: LEVEMIR (INSULIN DETEMIR) 1 UNITS/0.01ML SC SCH ×3 (09:52→21:55)
[2019-01-23] MEDS: MULTIVITAMINS/MINERALS THERAP 1 TAB PO SCH (09:53)
[2019-01-23] MEDS: DULoxetine 30 MG CAP (CYMBALTA) PO SCH (09:53)
[2019-01-23] MEDS: THIAMINE 100 MG TAB PO SCH (09:54)
[2019-01-23] MEDS: QUEtiapine FUMARATE 100 MG TAB PO SCH ×2 (09:54→21:54)
[2019-01-23] MEDS: FOLIC ACID 1 MG TAB PO SCH (09:54)
[2019-01-23] MEDS: LACTOBACILLUS ACIDOPHILUS CAP (BACID) PO SCH (09:54)
[2019-01-23] MEDS: FUROSEMIDE 20 MG TAB PO SCH (09:58)
[2019-01-23] MEDS: DIVALPROEX 250 MG TAB PO SCH ×2 (09:59→21:53)
[2019-01-23] MEDS: HumaLOG INSULIN (NovoLOG) PER UNIT SC SCH ×4 (10:12→21:00)
[2019-01-23 13:39] LABS: HEMOGLOBIN 8.4 g/dl (13.5-17.5); MEAN CORPUSCULAR HEMOGLOBIN 26.8 pg (27.0-33.0); MEAN CORPUSCULAR HGB CONC 32.3 g/dl (32.0-36.5); MEAN CORPUSCULAR VOLUME 82.8 fl (80.0-96.0); PLATELET COUNT, AUTOMATED 328 10^3/uL (150-450); RED BLOOD COUNT 3.14 10^6/uL (4.30-6.10); WHITE BLOOD COUNT 7.2 10^3/uL (4.0-10.0)
[2019-01-23 14:11] LABS: BLOOD UREA NITROGEN 10 MG/DL (7-18); CALCIUM LEVEL 7.9 MG/DL (8.5-10.1); CARBON DIOXIDE LEVEL 30 MEQ/L (21-32); CHLORIDE LEVEL 101 MEQ/L (98-107); CREATININE FOR GFR 1.62 MG/DL (0.70-1.30); GLOMERULAR FILTRATION RATE 58.7 (>60); GLUCOSE, FASTING 415 MG/DL (70-100); POTASSIUM SERUM 4.5 MEQ/L (3.5-5.1); SODIUM LEVEL 136 MEQ/L (136-145); TROPONIN I < 0.02 NG/ML (< 0.10)
[2019-01-23] MEDS ORDERED: SPIRONOLACTONE 25 MG TAB PO STA (14:17)
--- NOTE | 2019-01-23 14:19 | IPNPDOC ---
Text Note Date of Service The patient was seen on 01/23/19. NOTE Subjective: patient seen and examined. Complained of pain O: Vitals as below General: pleasant NAD AAOx3 Eyes - PERRLA, EOM intact Neck - No noticeable or palpable swelling, redness or rash around throat or on face Lymph Nodes - No lymphadenopathy Cardiovascular - RRR no m/r/g, no JVD, no carotid bruits Lungs - Clear to auscltation, no use of acessory muscles, no crackles or wheezes. Skin - No rashes, skin warm and dry, no erythematous areas Abdomen - Normal bowel sounds, abdomen soft and nontender Ext: no ankle edema; right forearm bandage intact A/P: #Left forearm abscess (secondary to IVDA) growing Streptococcus and Prevotella on IV Unasyn. - ID & surgery consulted. -U/S of the Ext notable for 3.8 x 2.7 x 6 cm abscess on admission s/p drainage by IR on 01/12 -Repeat U/S of the LUE notable for repeat Abscess on 01/14 -MRI with large 11cm abcess on 01/19/19 -Blood cultures negative. ; Wound culture notable for streptococcus and prevotella - on unasyn -s/p Surgical Intervention I&D with Dr. Cardenasuga 01/14/19 -s/p bedside I&D abscess by Dr Pike (01/19/19 and 01/22/19) -(ortho) - no further interventions/signed off on case -Consult with Dr Recinos (ID). -continue with current antibiotic regimen of unasyn; -as per surgery: reassess this next week. # Left forearm tenosynovitis - PT/OT consulted. continue current treatment plan as above #Pain control - pain medications and psych meds adjusted to avoid oversedation. - morphine to 2mg IV prior to dressing changes and scheduled oxycodone. - use tramadol for break thru pain. -i added long acting oxycontin 15 mg BID #History of IV drug abuse - (crack cocaine/omero) - interested in inpatient rehab unit # Diabetes mellitus - poor control with uncontrolled blood sugars. -. BS ranging 268-421 today. - continue SSI and levemir dose increased to 30 U in the morning and 30 U at bedtime # Chronic kidney disease stage III -probably secondary to essential HTN and DM # Peripheral neuropathy due to DM; - Continue gabapentin for renally adjusted dose # Essential Hypertension - continue Coreg,prazosin,clonidine TID -will add spironolactone #Anxiety/depression -Continue Seroquel (dose lowered) , - Depakote ; - the sertaline was changed to cymbalta for better pain and anxiety/depression control, DVT PPX- SQH Dispo: pending surgery clearance VS,Fishbone, I+O VS, Fishbone, I+O Laboratory Tests 01/23/19 05:28 Red Blood Count 2.59 L, Mean Corpuscular Volume 86.5, Mean Corpuscular He moglobin 28.2, Mean Corpuscular Hemoglobin Concent 32.6, Red Cell Distribution Width 15.2 H, Neutrophils (%) (Auto) 40.9, Lymphocytes (%) (Auto) 43.5, Monocytes (%) (Auto) 11.5 H, Eosinophils (%) (Auto) 2.5, Basophils (%) (Auto) 0.3, Neutrophils # (Auto) 2.5, Lymphocytes # (Auto) 2.6, Monocytes # (Auto) 0.7, Eosinophils # (Auto) 0.2, Basophils # (Auto) 0.0, Calcium Level 6.5 L 01/23/19 07:15 Calcium Level 7.8 #L 01/23/19 13:26 Red Blood Count 3.14 L, Mean Corpuscular Volume 82.8, Mean Corpuscular Hemoglobin 26.8 L, Mean Corpuscular Hemoglobin Concent 32.3, Red Cell Distribution Width 15.0 H Vital Signs Date Time Temp Pulse Resp B/P (MAP) Pulse Ox O2 Delivery O2 Flow Rate FiO2 01/23/19 10:01 19 01/23/19 08:00 70 195/93 (127) 96 01/23/19 07:42 98.2 01/17/19 09:40 Room Air I&O- Last 24 Hours up to 6 AM 01/23/19 06:00 Intake Total 2355 ml Output Total 0 ml Balance 2355 ml BRINA KHAN MD Jan 23, 2019 14:19
[2019-01-23] MEDS ORDERED: hydroCHLOROthiazide 25 MG TAB PO STA (14:23)
[2019-01-23] MEDS ORDERED: amLODIPine 10 MG TAB PO STA (14:23)
[2019-01-23] MEDS: PRAZOSIN 1 MG CAP PO SCH (21:52)
[2019-01-23] MEDS: oxyCODONE 15 MG CR TAB PO SCH (21:53)
[2019-01-24] MEDS ORDERED: **hydrALAZINE HCL** 25 MG TAB PO ONE
[2019-01-24] MEDS: NICOTINE POLACRILEX 2 MG GUM PO PRN ×7 (00:05→21:25)
[2019-01-24 01:30] VITALS: BP 177/95
[2019-01-24] MEDS: AMPICILLIN SOD/SULBACTAM SOD 3 GM in D5W MINI-BAG PLUS 100 ML IV SCH ×4 (04:21→20:58)
[2019-01-24] MEDS: GABAPENTIN 400 MG CAP PO SCH ×3 (05:08→20:58)
[2019-01-24] MEDS: ACETAMINOPHEN 650MG ER TAB (TYLENOL ARTHRITIS) PO SCH ×3 (05:08→20:56)
[2019-01-24 05:55] LABS: BASO % 0.3 % (0.0-1.0); EOS # 0.2 10^3/uL (0.0-0.50); EOS % 2.5 % (0.0-3.0); HEMATOCRIT 25.2 % (42.0-52.0); HEMOGLOBIN 8.2 g/dl (13.5-17.5); LYMPH # 3.4 10^3/uL (1.5-4.5); LYMPH % 45.1 % (24.0-44.0); MEAN CORPUSCULAR HEMOGLOBIN 26.6 pg (27.0-33.0); MEAN CORPUSCULAR HGB CONC 32.5 g/dl (32.0-36.5); MEAN CORPUSCULAR VOLUME 81.8 fl (80.0-96.0); MONO # 0.8 10^3/uL (0.0-0.8); MONO % 10.4 % (0.0-5.0); NEUTROPHILS # 3.1 10^3/uL (1.8-7.7); PLATELET COUNT, AUTOMATED 299 10^3/uL (150-450); RED BLOOD COUNT 3.08 10^6/uL (4.30-6.10); WHITE BLOOD COUNT 7.6 10^3/uL (4.0-10.0)
[2019-01-24 06:00] VITALS: BP 162/80
[2019-01-24 06:16] LABS: C REACTIVE PROTEIN QUANTITATIV 2.39 MG/DL (0.00-0.30); CALCIUM LEVEL 7.7 MG/DL (8.5-10.1); CREATININE FOR GFR 1.68 MG/DL (0.70-1.30); GLOMERULAR FILTRATION RATE 56.3 (>60); POTASSIUM SERUM 3.8 MEQ/L (3.5-5.1)
--- NOTE | 2019-01-24 08:48 | IPN ---
DATE: 01/22/2019 [place] is doing well, better than last week. His forearm pain has improved. Swelling has decreased. He is afebrile. Temperature is 97.8, pulse 79, respirations 18, blood pressure 180/60, down to 148/78, oxygen saturation 97% on room air. Left arm biceps slight swelling. No tenderness. Shoulder with normal range of motion. Forearm incision is covered with Kerlix dressing. I did not change the dressing today as it was just recently changed 2 hours ago by nursing. I reviewed Dr. Pike and the primary care team notes. LABS: White count 8, hemoglobin 8.2, hematocrit 25.3, platelets 313, 42% neutrophils, 38% lymphocytes, 13% monocytes. Sodium 138, potassium 4, chloride 103, bicarbonate 31, BUN 12, creatinine 1.53, glucose 303, calcium 7.5. CRP 4.74, down from 18.1. Wound culture: Streptococcus intermedius and Prevotella. IMPRESSION: 1. Left forearm abscess, status post incision and drainage (I and D). Doing much better with decreasing C-reactive protein (CRP) and normal white count status post her I and D by Dr. Pike. Patient doing well on IV Unasyn. 2. Insulin-dependent diabetes. Still poorly controlled. Sugars have been running between 127 and 300. PLAN: Continue IV Unasyn. Patient probably could be switched to oral Augmentin in the next 24-48 hours. His white count is normal. CRP is improving. Switch to oral Augmentin at least 10-14 days once ready for discharge. While he is in the hospital, he could remain on IV Unasyn. 3. Hepatitis C, chronic. Will need to be treated as an outpatient. 4. Drug abuse. Patient would like to go to an inpatient 28-day rehabilitation if possible as soon as he gets discharged from the hospital. Please contact [facility] so he can have his applications filled for inpatient rehabilitation. GRIFFIN
[2019-01-24] MEDS: FOLIC ACID 1 MG TAB PO SCH (10:36)
[2019-01-24] MEDS: LACTOBACILLUS ACIDOPHILUS CAP (BACID) PO SCH (10:36)
[2019-01-24] MEDS: DULoxetine 30 MG CAP (CYMBALTA) PO SCH (10:36)
[2019-01-24] MEDS: FUROSEMIDE 20 MG TAB PO SCH (10:37)
[2019-01-24] MEDS: CARVedilol 12.5 MG TAB PO SCH ×2 (10:39→20:56)
[2019-01-24] MEDS: HumaLOG INSULIN (NovoLOG) PER UNIT SC SCH ×4 (10:40→20:56)
[2019-01-24] MEDS: LEVEMIR (INSULIN DETEMIR) 1 UNITS/0.01ML SC SCH ×2 (10:41→20:57)
[2019-01-24] MEDS: oxyCODONE 15 MG CR TAB PO SCH ×2 (10:41→20:54)
[2019-01-24] MEDS: MULTIVITAMINS/MINERALS THERAP 1 TAB PO SCH (10:41)
[2019-01-24] MEDS: QUEtiapine FUMARATE 100 MG TAB PO SCH ×2 (10:42→20:55)
[2019-01-24] MEDS: THIAMINE 100 MG TAB PO SCH (10:42)
[2019-01-24] MEDS: hydroCHLOROthiazide 25 MG TAB PO SCH (10:42)
[2019-01-24] MEDS: HEPARIN SOD (PORCINE) 5000 UNITS/ML VIAL SC SCH ×2 (10:43→20:57)
[2019-01-24] MEDS: DIVALPROEX 250 MG TAB PO SCH ×2 (11:06→20:55)
[2019-01-24] MEDS: amLODIPine 10 MG TAB PO SCH (11:09)
[2019-01-24] MEDS: cloNIDine 0.1 MG TAB PO SCH ×3 (11:10→20:55)
[2019-01-24] MEDS: oxyCODONE 5MG TAB PO PRN (13:18)
[2019-01-24 14:00] VITALS: BP 156/71
--- NOTE | 2019-01-24 15:05 | IPNPDOC ---
Text Note Date of Service The patient was seen on 01/24/19. NOTE Subjective: patient seen and examined. Complained of pain O: Vitals as below General: pleasant NAD AAOx3 Eyes - PERRLA, EOM intact Neck - No noticeable or palpable swelling, redness or rash around throat or on face Lymph Nodes - No lymphadenopathy Cardiovascular - RRR no m/r/g, no JVD, no carotid bruits Lungs - Clear to auscltation, no use of acessory muscles, no crackles or wheezes. Skin - No rashes, skin warm and dry, no erythematous areas Abdomen - Normal bowel sounds, abdomen soft and nontender Ext: no ankle edema; right forearm bandage intact A/P: #Left forearm abscess (secondary to IVDA) growing Streptococcus and Prevotella on IV Unasyn. - ID & surgery consulted. -U/S of the Ext notable for 3.8 x 2.7 x 6 cm abscess on admission s/p drainage by IR on 01/12 -Repeat U/S of the LUE notable for repeat Abscess on 01/14 -MRI with large 11cm abcess on 01/19/19 -Blood cultures negative. ; Wound culture notable for streptococcus and prevotella - on unasyn -s/p Surgical Intervention I&D with Dr. Cardenasuga 01/14/19 -s/p bedside I&D abscess by Dr Pike (01/19/19 and 01/22/19) -(ortho) - no further interventions/signed off on case -Consult with Dr Recinos (ID). -continue with current antibiotic regimen of unasyn for another 24-48 hours and then switch to oral Augmentin for 10-14 days. -as per surgery: reassess this next week. # Left forearm tenosynovitis - PT/OT consulted. continue current treatment plan as above #Pain control - pain medications and psych meds adjusted to avoid oversedation. - morphine to 2mg IV prior to dressing changes and scheduled oxycodone. - use tramadol for break thru pain. -i added long acting oxycontin 15 mg BID #History of IV drug abuse - (crack cocaine/omero) - interested in inpatient rehab unit # Diabetes mellitus - poor control with uncontrolled blood sugars. -. BS ranging [phone] today. - continue SSI and levemir dose increased to 30 U in the morning and 30 U at bedtime # Chronic kidney disease stage III -probably secondary to essential HTN and DM # Peripheral neuropathy due to DM; - Continue gabapentin for renally adjusted dose # Essential Hypertension - continue Coreg,prazosin,clonidine TID -will add spironolactone #Anxiety/depression -Continue Seroquel (dose lowered) , - Depakote ; - the sertaline was changed to cymbalta for better pain and anxiety/depression control, DVT PPX- SQH Dispo: pending surgery clearance VS,Jakee, I+O VS, Fishbone, I+O Laboratory Tests 01/24/19 05:23 Red Blood Count 3.08 L, Mean Corpuscular Volume 81.8, Mean Corpuscular Hemoglobin 26.6 L, Mean Corpuscular Hemoglobin Concent 32.5, Red Cell Distribution Width 14.7 H, Neutrophils (%) (Auto) 41.0, Lymphocytes (%) (Auto) 45.1 H, Monocytes (%) (Auto) 10.4 H, Eosinophils (%) (Auto) 2.5, Basophils (%) (Auto) 0.3, Neutrophils # (Auto) 3.1, Lymphocytes # (Auto) 3.4, Monocytes # (Auto) 0.8, Eosinophils # (Auto) 0.2, Basophils # (Auto) 0.0, Calcium Level 7.7 L Vital Signs Date Time Temp Pulse Resp B/P (MAP) Pulse Ox O2 Delivery O2 Flow Rate FiO2 01/24/19 14:00 98.4 74 17 156/71 (99) 98 I&O- Last 24 Hours up to 6 AM 01/24/19 06:00 Intake Total 2110 ml Output Total 0 ml Balance 2110 ml BRINA KHAN MD Jan 24, 2019 15:05
[2019-01-24 19:56] LABS: ERYTHROCYTE SEDIMENTATION RATE 126 mm/hr (0-15)
[2019-01-24] MEDS: PRAZOSIN 1 MG CAP PO SCH (20:55)
[2019-01-24 22:00] VITALS: BP 153/97
[2019-01-25] MEDS: NICOTINE POLACRILEX 2 MG GUM PO PRN ×7 (00:12→22:14)
[2019-01-25] MEDS: MORPHINE 4 MG/ML 1ML VIAL/SYRINGE (J2270) IV PRN (00:17)
[2019-01-25] MEDS: AMPICILLIN SOD/SULBACTAM SOD 3 GM in D5W MINI-BAG PLUS 100 ML IV SCH ×4 (05:00→22:09)
[2019-01-25] MEDS: ACETAMINOPHEN 650MG ER TAB (TYLENOL ARTHRITIS) PO SCH ×3 (05:00→22:12)
[2019-01-25] MEDS: GABAPENTIN 400 MG CAP PO SCH ×3 (05:00→22:10)
[2019-01-25] MEDS: oxyCODONE 5MG TAB PO PRN ×2 (05:07→18:18)
[2019-01-25 06:00] VITALS: BP 156/84
[2019-01-25 06:41] LABS: BASO % 0.3 % (0.0-1.0); EOS # 0.2 10^3/uL (0.0-0.50); EOS % 2.4 % (0.0-3.0); HEMATOCRIT 25.3 % (42.0-52.0); HEMOGLOBIN 8.2 g/dl (13.5-17.5); LYMPH # 3.6 10^3/uL (1.5-4.5); LYMPH % 50.4 % (24.0-44.0); MEAN CORPUSCULAR HEMOGLOBIN 27.3 pg (27.0-33.0); MEAN CORPUSCULAR HGB CONC 32.4 g/dl (32.0-36.5); MEAN CORPUSCULAR VOLUME 84.3 fl (80.0-96.0); MONO # 0.7 10^3/uL (0.0-0.8); MONO % 10.4 % (0.0-5.0); NEUTROPHILS # 2.6 10^3/uL (1.8-7.7); NEUTROPHILS % 36.2 % (36.0-66.0); PLATELET COUNT, AUTOMATED 312 10^3/uL (150-450)
[2019-01-25 07:08] LABS: BLOOD UREA NITROGEN 13 MG/DL (7-18); C REACTIVE PROTEIN QUANTITATIV 1.84 MG/DL (0.00-0.30); CALCIUM LEVEL 7.6 MG/DL (8.5-10.1); CARBON DIOXIDE LEVEL 30 MEQ/L (21-32); CHLORIDE LEVEL 101 MEQ/L (98-107); CREATININE FOR GFR 1.58 MG/DL (0.70-1.30); GLOMERULAR FILTRATION RATE > 60.0 (>60); GLUCOSE, FASTING 211 MG/DL (70-100); POTASSIUM SERUM 3.5 MEQ/L (3.5-5.1); SODIUM LEVEL 137 MEQ/L (136-145)
[2019-01-25] MEDS: cloNIDine 0.1 MG TAB PO SCH ×3 (09:08→22:11)
[2019-01-25] MEDS: CARVedilol 12.5 MG TAB PO SCH ×2 (09:09→22:10)
[2019-01-25] MEDS: LACTOBACILLUS ACIDOPHILUS CAP (BACID) PO SCH (09:09)
[2019-01-25] MEDS: FOLIC ACID 1 MG TAB PO SCH (09:09)
[2019-01-25] MEDS: FUROSEMIDE 20 MG TAB PO SCH (09:09)
[2019-01-25] MEDS: MULTIVITAMINS/MINERALS THERAP 1 TAB PO SCH (09:09)
[2019-01-25] MEDS: QUEtiapine FUMARATE 100 MG TAB PO SCH ×2 (09:09→22:10)
[2019-01-25] MEDS: hydroCHLOROthiazide 25 MG TAB PO SCH (09:09)
[2019-01-25] MEDS: THIAMINE 100 MG TAB PO SCH (09:11)
[2019-01-25] MEDS: oxyCODONE 15 MG CR TAB PO SCH ×2 (09:11→22:12)
[2019-01-25] MEDS: DULoxetine 30 MG CAP (CYMBALTA) PO SCH (09:11)
[2019-01-25] MEDS: amLODIPine 10 MG TAB PO SCH (09:11)
[2019-01-25] MEDS: DIVALPROEX 250 MG TAB PO SCH ×2 (09:11→22:11)
[2019-01-25] MEDS: HEPARIN SOD (PORCINE) 5000 UNITS/ML VIAL SC SCH ×2 (09:11→22:09)
[2019-01-25] MEDS: HumaLOG INSULIN (NovoLOG) PER UNIT SC SCH ×4 (09:12→21:00)
[2019-01-25] MEDS: LEVEMIR (INSULIN DETEMIR) 1 UNITS/0.01ML SC SCH ×2 (09:12→22:13)
[2019-01-25 14:00] VITALS: BP 154/76
--- NOTE | 2019-01-25 14:51 | IPNPDOC ---
Text Note Date of Service The patient was seen on 01/25/19. NOTE Subjective: This is a 48-year-old male with an abscess to his left forearm for which he has undergone incision and drainage This is related to IV drug abuse. Patient has a history of use of cocaine and omero. Objective: Please see vital signs below General: Patient is difficult to rouse. He is sedated to the point of episodic apnea; he does not yet require Narcan, Respiratory rate is 16-17 HENT: Neck is supple to passive motion, he has scleral injection and tacky mucosa Cardiovascular: Regular rate and rhythm with a normal S1 and S2 Respiratory: Generally clear to auscultation with good air movement, has occasional respiratory pauses. Abdomen: Soft, nontender, nondistended. Extremities: Left upper extremity is encased with compression dressing and wound VAC dressing is in place. Patient also has a compression glove on, radial pulses are palpable, Pedal pulses are palpable and there is no distal pedal edema. Neuro: Patient is only responsive to very aggressive stimulation Assessment/Plan: 1. Left forearm abscess. Patient remains on IV Unasyn. He is status post incision and drainage and currently on wound VAC. Organisms isolated include streptococcus and Prevotella. 2. Rlq-cypjphf-nvcusnzhd diabetes mellitus. We will continue to adjust the patient's insulin for optimal glucose control. 3. History of substance abuse. The patient's substances choice tend to be stimulants inclusive of cocaine and omero. He is currently remarkably sedated on opiates. We are keeping Narcan available. We appreciate the assistance of the pain management service. We are removing the morphine from his regimen and reducing his oxycodone dosage due to severe sedation. VS,Fishbone, I+O VS, Fishbone, I+O Laboratory Tests 01/25/19 06:14 Red Blood Count 3.00 L, Mean Corpuscular Volume 84.3, Mean Corpuscular Hemoglobin 27.3, Mean Corpuscular Hemoglobin Concent 32.4, Red Cell Distribution Width 14.8 H, Neutrophils (%) (Auto) 36.2, Lymphocytes (%) (Auto) 50.4 H, Monocytes (%) (Auto) 10.4 H, Eosinophils (%) (Auto) 2.4, Basophils (%) (Auto) 0.3, Neutrophils # (Auto) 2.6, Lymphocytes # (Auto) 3.6, Monocytes # (Auto) 0.7, Eosinophils # (Auto) 0.2, Basophils # (Auto) 0.0, Calcium Level 7.6 L Vital Signs Date Time Temp Pulse Resp B/P (MAP) Pulse Ox O2 Delivery O2 Flow Rate FiO2 01/25/19 14:00 98.7 81 17 96 01/25/19 09:09 168/82 I&O- Last 24 Hours up to 6 AM 01/25/19 06:00 Intake Total 2080 ml Output Total 0 ml Balance 2080 ml ARIAN DOTSON MD Jan 25, 2019 14:51
[2019-01-25 22:00] VITALS: BP 162/80
[2019-01-25] MEDS: PRAZOSIN 1 MG CAP PO SCH (22:11)
[2019-01-26] MEDS: NICOTINE POLACRILEX 2 MG GUM PO PRN ×6 (00:52→23:38)
[2019-01-26] MEDS: ACETAMINOPHEN 650MG ER TAB (TYLENOL ARTHRITIS) PO SCH ×4 (05:10→21:21)
[2019-01-26] MEDS: GABAPENTIN 400 MG CAP PO SCH ×4 (05:10→21:21)
[2019-01-26] MEDS: AMPICILLIN SOD/SULBACTAM SOD 3 GM in D5W MINI-BAG PLUS 100 ML IV SCH ×4 (05:10→21:21)
[2019-01-26 06:00] VITALS: BP 126/78
[2019-01-26 06:44] LABS: BASO % 0.3 % (0.0-1.0); EOS # 0.2 10^3/uL (0.0-0.50); EOS % 2.3 % (0.0-3.0); HEMATOCRIT 26.3 % (42.0-52.0); HEMOGLOBIN 8.8 g/dl (13.5-17.5); LYMPH # 3.7 10^3/uL (1.5-4.5); LYMPH % 48.6 % (24.0-44.0); MEAN CORPUSCULAR HEMOGLOBIN 28.6 pg (27.0-33.0); MEAN CORPUSCULAR HGB CONC 33.5 g/dl (32.0-36.5); MEAN CORPUSCULAR VOLUME 85.4 fl (80.0-96.0); MONO # 0.7 10^3/uL (0.0-0.8); MONO % 9.6 % (0.0-5.0); NEUTROPHILS # 2.9 10^3/uL (1.8-7.7); NEUTROPHILS % 38.5 % (36.0-66.0); PLATELET COUNT, AUTOMATED 330 10^3/uL (150-450); RED BLOOD COUNT 3.08 10^6/uL (4.30-6.10); WHITE BLOOD COUNT 7.5 10^3/uL (4.0-10.0)
[2019-01-26 07:12] LABS: C REACTIVE PROTEIN QUANTITATIV 2.03 MG/DL (0.00-0.30); CALCIUM LEVEL 7.8 MG/DL (8.5-10.1); CREATININE FOR GFR 2.14 MG/DL (0.70-1.30); GLOMERULAR FILTRATION RATE 42.6 (>60); POTASSIUM SERUM 3.7 MEQ/L (3.5-5.1)
[2019-01-26] MEDS: HEPARIN SOD (PORCINE) 5000 UNITS/ML VIAL SC SCH ×2 (08:19→20:10)
[2019-01-26] MEDS: LACTOBACILLUS ACIDOPHILUS CAP (BACID) PO SCH (08:19)
[2019-01-26] MEDS: HumaLOG INSULIN (NovoLOG) PER UNIT SC SCH ×4 (08:20→21:00)
[2019-01-26] MEDS: LEVEMIR (INSULIN DETEMIR) 1 UNITS/0.01ML SC SCH ×2 (08:20→21:22)
[2019-01-26] MEDS: amLODIPine 10 MG TAB PO SCH (08:21)
[2019-01-26] MEDS: DULoxetine 30 MG CAP (CYMBALTA) PO SCH (08:21)
[2019-01-26] MEDS: DIVALPROEX 250 MG TAB PO SCH ×2 (08:21→20:10)
[2019-01-26] MEDS: THIAMINE 100 MG TAB PO SCH (08:22)
[2019-01-26] MEDS: cloNIDine 0.1 MG TAB PO SCH ×3 (08:22→20:11)
[2019-01-26] MEDS: FUROSEMIDE 20 MG TAB PO SCH (08:22)
[2019-01-26] MEDS: QUEtiapine FUMARATE 100 MG TAB PO SCH ×2 (08:22→20:10)
[2019-01-26] MEDS: hydroCHLOROthiazide 25 MG TAB PO SCH (08:22)
[2019-01-26] MEDS: CARVedilol 12.5 MG TAB PO SCH ×2 (08:22→20:11)
[2019-01-26] MEDS: FOLIC ACID 1 MG TAB PO SCH (08:22)
[2019-01-26] MEDS: MULTIVITAMINS/MINERALS THERAP 1 TAB PO SCH (08:22)
[2019-01-26] MEDS: oxyCODONE 15 MG CR TAB PO SCH ×2 (08:23→20:12)
[2019-01-26 14:00] VITALS: BP 126/70
--- NOTE | 2019-01-26 16:47 | IPNPDOC ---
Text Note Date of Service The patient was seen on 01/26/19. NOTE SUBJECTIVE: The patient is remarkably improved from alertness standpoint. He is ambulatory and conversant. He does not complain of significant pain. Patient was admitted and treated for abscess to his left upper extremity. OBJECTIVE: Please see vital signs below General: The patient is awake and ambulatory with some assistance HENT: Neck is supple to passive motion, he has scleral injection and tacky mucosa Cardiovascular: Regular rate and rhythm with a normal S1 and S2 Respiratory: Generally clear to auscultation with good air movement Abdomen: Soft, nontender, nondistended. Extremities: Left upper extremity is encased with compression dressing and wound VAC dressing is in place. Patient also has a compression glove on, radial pulses are palpable, Pedal pulses are palpable and there is no distal pedal edema. Neuro: Patient does not demonstrate focal neuromotor or sensory deficits Psych: The patient appears to understand his clinical condition ASSESSMENT/PLAN: 1. Left forearm abscess. The patient remains on IV Unasyn for treatment of organisms in the form of Streptococcus and Prevotella. He is status post incision and drainage. Patient currently has a wound VAC. In are for him to be able to go home with home health services with wound VAC. 2. Wjt-cosgnok-oickljnyc diabetes mellitus. With adjustment we continue to manage the patient's glucose control. 3. History of substance abuse. The patient's drugs of choice include cocaine and Carmenza. He does not really have a history of opiate abuse. Patient is interested in obtaining a mental health appointment-he has underlying bipolar disorder. Additionally, he is interested in drug rehabilitation and is being referred to [facility]. 4. Disposition. Plans are for the patient to be discharged to home with the wound VAC. He'll require home health services for wound care and dressing changes. Additional services may include Meals on Wheels. Discharge is anticipated for next week as we are still awaiting his wound VAC for home. VS,Fishbone, I+O VS, Fishbone, I+O Laboratory Tests 01/26/19 06:09 Red Blood Count 3.08 L, Mean Corpuscular Volume 85.4, Mean Corpuscular Hemoglobin 28.6, Mean Corpuscular Hemoglobin Concent 33.5, Red Cell Distribution Width 15.0 H, Neutrophils (%) (Auto) 38.5, Lymphocytes (%) (Auto) 48.6 H, Monocytes (%) (Auto) 9.6 H, Eosinophils (%) (Auto) 2.3, Basophils (%) (Auto) 0.3, Neutrophils # (Auto) 2.9, Lymphocytes # (Auto) 3.7, Monocytes # (Auto) 0.7, Eosinophils # (Auto) 0.2, Basophils # (Auto) 0.0, Calcium Level 7.8 L Vital Signs Date Time Temp Pulse Resp B/P (MAP) Pulse Ox O2 Delivery O2 Flow Rate FiO2 01/26/19 16:02 132/67 01/26/19 14:00 97.9 79 17 99 I&O- Last 24 Hours up to 6 AM 01/26/19 06:00 Intake Total 1770 ml Output Total 0 ml Balance 1770 ml ARIAN DOTSON MD Jan 26, 2019 16:47
[2019-01-26] MEDS: PRAZOSIN 1 MG CAP PO SCH (20:09)
[2019-01-26 22:00] VITALS: BP 164/84
[2019-01-27] MEDS: AMPICILLIN SOD/SULBACTAM SOD 3 GM in D5W MINI-BAG PLUS 100 ML IV SCH ×4 (04:42→21:47)
[2019-01-27] MEDS: GABAPENTIN 400 MG CAP PO SCH ×3 (05:48→21:51)
[2019-01-27] MEDS: ACETAMINOPHEN 650MG ER TAB (TYLENOL ARTHRITIS) PO SCH ×3 (05:48→21:50)
[2019-01-27 06:00] VITALS: BP 135/65
[2019-01-27 06:09] LABS: BASO % 0.4 % (0.0-1.0); EOS # 0.2 10^3/uL (0.0-0.50); EOS % 2.1 % (0.0-3.0); HEMATOCRIT 27.8 % (42.0-52.0); HEMOGLOBIN 9.1 g/dl (13.5-17.5); LYMPH # 3.6 10^3/uL (1.5-4.5); LYMPH % 49.6 % (24.0-44.0); MEAN CORPUSCULAR HGB CONC 32.7 g/dl (32.0-36.5); MEAN CORPUSCULAR VOLUME 85.5 fl (80.0-96.0); MONO # 0.7 10^3/uL (0.0-0.8); MONO % 9.7 % (0.0-5.0); NEUTROPHILS # 2.7 10^3/uL (1.8-7.7); NEUTROPHILS % 37.9 % (36.0-66.0); PLATELET COUNT, AUTOMATED 311 10^3/uL (150-450); RED BLOOD COUNT 3.25 10^6/uL (4.30-6.10); WHITE BLOOD COUNT 7.2 10^3/uL (4.0-10.0)
[2019-01-27] MEDS: NICOTINE POLACRILEX 2 MG GUM PO PRN ×5 (06:20→21:48)
[2019-01-27 06:41] LABS: CALCIUM LEVEL 8.3 MG/DL (8.5-10.1); CREATININE FOR GFR 1.93 MG/DL (0.70-1.30); POTASSIUM SERUM 3.6 MEQ/L (3.5-5.1)
[2019-01-27] MEDS: HumaLOG INSULIN (NovoLOG) PER UNIT SC SCH ×4 (07:30→21:00)
[2019-01-27] MEDS: LEVEMIR (INSULIN DETEMIR) 1 UNITS/0.01ML SC SCH ×2 (10:07→21:49)
[2019-01-27] MEDS: HEPARIN SOD (PORCINE) 5000 UNITS/ML VIAL SC SCH ×2 (10:07→21:48)
[2019-01-27] MEDS: QUEtiapine FUMARATE 100 MG TAB PO SCH ×2 (10:08→21:49)
[2019-01-27] MEDS: hydroCHLOROthiazide 25 MG TAB PO SCH (10:09)
[2019-01-27] MEDS: FUROSEMIDE 20 MG TAB PO SCH (10:09)
[2019-01-27] MEDS: oxyCODONE 15 MG CR TAB PO SCH ×2 (10:09→21:50)
[2019-01-27] MEDS: THIAMINE 100 MG TAB PO SCH (10:12)
[2019-01-27] MEDS: amLODIPine 10 MG TAB PO SCH (10:12)
[2019-01-27] MEDS: LACTOBACILLUS ACIDOPHILUS CAP (BACID) PO SCH (10:12)
[2019-01-27] MEDS: CARVedilol 12.5 MG TAB PO SCH ×2 (10:12→21:52)
[2019-01-27] MEDS: MULTIVITAMINS/MINERALS THERAP 1 TAB PO SCH (10:12)
[2019-01-27] MEDS: FOLIC ACID 1 MG TAB PO SCH (10:13)
[2019-01-27] MEDS: DULoxetine 30 MG CAP (CYMBALTA) PO SCH (10:13)
[2019-01-27] MEDS: DIVALPROEX 250 MG TAB PO SCH ×2 (10:13→21:48)
[2019-01-27] MEDS: cloNIDine 0.1 MG TAB PO SCH ×3 (10:14→21:52)
--- NOTE | 2019-01-27 11:48 | IPNPDOC ---
Text Note Date of Service The patient was seen on 01/27/19. NOTE SUBJECTIVE: Mr. Thornton continues to make daily improvement. He does not have as much pain as he had been. Patient had had severe infection with abscess to his left forearm requiring surgical debridement and drainage and subsequent wound VAC placement. Organisms isolated included Streptococcus intermedius and Prevotella. Patient has been on antibiotics in the form of Unasyn. OBJECTIVE: See vital signs below General: The patient is awake and ambulatory with some assistance HENT: Neck is supple to passive motion, he has scleral injection and tacky mucosa Cardiovascular: Regular rate and rhythm with a normal S1 and S2 Respiratory: Generally clear to auscultation with good air movement Abdomen: Soft, nontender, nondistended. Extremities: Compression dressing is off to left upper extremity, wound VAC is still in place. Swelling and pain are greatly reduced and radial pulses are palpable. Pedal pulses are palpable and there is no distal pedal edema. Neuro: Patient does not demonstrate focal neuromotor or sensory deficits Psych: The patient appears to understand his clinical condition ASSESSMENT/PLAN: 1. Left forearm abscess. The patient remains on IV Unasyn for treatment of organisms in the form of Streptococcus and Prevotella. He is status post incision and drainage. Patient currently has a wound VAC. Plans are for him to be able to go home with home health services with wound VAC. Pain control appears adequate with scheduled OxyContin and breakthrough oxycodone. 2. Rcd-jgtklxz-psyxnjxfs diabetes mellitus. With adjustment we continue to manage the patient's glucose control. 3. History of substance abuse. The patient's drugs of choice include cocaine and Carmenza. He does not really have a history of opiate abuse. Patient is interested in obtaining a mental health appointment-he has underlying bipolar disorder. Additionally, he is interested i n drug rehabilitation and is being referred to [facility]. 4. Disposition. Plans are for the patient to be discharged to home with the wound VAC. He'll require home health services for wound care and dressing changes. Additional services may include Meals on Wheels. Discharge is anticipated for next week as we are still awaiting his wound VAC for home. VS,Fishbone, I+O VS, Fishbone, I+O Laboratory Tests 01/27/19 05:49 Red Blood Count 3.25 L, Mean Corpuscular Volume 85.5, Mean Corpuscular Hemoglobin 28.0, Mean Corpuscular Hemoglobin Concent 32.7, Red Cell Distribution Width 15.1 H, Neutrophils (%) (Auto) 37.9, Lymphocytes (%) (Auto) 49.6 H, Monocytes (%) (Auto) 9.7 H, Eosinophils (%) (Auto) 2.1, Basophils (%) (Auto) 0.4, Neutrophils # (Auto) 2.7, Lymphocytes # (Auto) 3.6, Monocytes # (Auto) 0.7, Eosinophils # (Auto) 0.2, Basophils # (Auto) 0.0, Calcium Level 8.3 L Vital Signs Date Time Temp Pulse Resp B/P (MAP) Pulse Ox O2 Delivery O2 Flow Rate FiO2 01/27/19 10:14 171/90 01/27/19 10:12 83 01/27/19 10:09 14 01/27/19 06:00 96.9 95 I&O- Last 24 Hours up to 6 AM 01/27/19 06:00 Intake Total 1330 ml Output Total 0 ml Balance 1330 ml ARIAN DOTSON MD Jan 27, 2019 11:48
[2019-01-27 16:00] VITALS: BP 138/80
[2019-01-27] MEDS: PRAZOSIN 1 MG CAP PO SCH (21:52)
[2019-01-27 22:00] VITALS: BP 150/80
[2019-01-28] MEDS: NICOTINE POLACRILEX 2 MG GUM PO PRN ×5 (00:09→22:02)
[2019-01-28] MEDS: AMPICILLIN SOD/SULBACTAM SOD 3 GM in D5W MINI-BAG PLUS 100 ML IV SCH ×4 (05:09→21:15)
[2019-01-28 06:00] VITALS: BP 150/98
[2019-01-28] MEDS: GABAPENTIN 400 MG CAP PO SCH ×3 (06:00→21:12)
[2019-01-28] MEDS: ACETAMINOPHEN 650MG ER TAB (TYLENOL ARTHRITIS) PO SCH ×3 (06:00→21:15)
[2019-01-28 06:19] LABS: BASO % 0.4 % (0.0-1.0); EOS # 0.2 10^3/uL (0.0-0.50); EOS % 2.6 % (0.0-3.0); HEMATOCRIT 26.4 % (42.0-52.0); HEMOGLOBIN 8.7 g/dl (13.5-17.5); LYMPH # 3.6 10^3/uL (1.5-4.5); MEAN CORPUSCULAR HEMOGLOBIN 27.2 pg (27.0-33.0); MEAN CORPUSCULAR VOLUME 82.5 fl (80.0-96.0); MONO # 0.7 10^3/uL (0.0-0.8); MONO % 10.1 % (0.0-5.0); NEUTROPHILS # 2.5 10^3/uL (1.8-7.7); NEUTROPHILS % 35.6 % (36.0-66.0); PLATELET COUNT, AUTOMATED 343 10^3/uL (150-450)
[2019-01-28 06:38] LABS: CALCIUM LEVEL 8.2 MG/DL (8.5-10.1); CREATININE FOR GFR 1.85 MG/DL (0.70-1.30); GLOMERULAR FILTRATION RATE 50.4 (>60); POTASSIUM SERUM 3.6 MEQ/L (3.5-5.1)
[2019-01-28] MEDS: LACTOBACILLUS ACIDOPHILUS CAP (BACID) PO SCH (09:10)
[2019-01-28] MEDS: LEVEMIR (INSULIN DETEMIR) 1 UNITS/0.01ML SC SCH ×2 (09:11→21:15)
[2019-01-28] MEDS: HEPARIN SOD (PORCINE) 5000 UNITS/ML VIAL SC SCH ×2 (09:11→21:14)
[2019-01-28] MEDS: oxyCODONE 15 MG CR TAB PO SCH ×3 (09:11→21:20)
[2019-01-28] MEDS: HumaLOG INSULIN (NovoLOG) PER UNIT SC SCH ×4 (09:12→21:00)
[2019-01-28] MEDS: QUEtiapine FUMARATE 100 MG TAB PO SCH ×2 (09:13→21:12)
[2019-01-28] MEDS: DULoxetine 30 MG CAP (CYMBALTA) PO SCH (09:13)
[2019-01-28] MEDS: DIVALPROEX 250 MG TAB PO SCH ×2 (09:13→21:11)
[2019-01-28] MEDS: THIAMINE 100 MG TAB PO SCH (09:14)
[2019-01-28] MEDS: FOLIC ACID 1 MG TAB PO SCH (09:14)
[2019-01-28] MEDS: MULTIVITAMINS/MINERALS THERAP 1 TAB PO SCH (09:14)
[2019-01-28] MEDS: cloNIDine 0.1 MG TAB PO SCH ×3 (09:15→21:11)
[2019-01-28] MEDS: CARVedilol 12.5 MG TAB PO SCH ×2 (09:16→21:13)
[2019-01-28] MEDS: amLODIPine 10 MG TAB PO SCH (09:16)
[2019-01-28] MEDS: FUROSEMIDE 20 MG TAB PO SCH (09:16)
[2019-01-28] MEDS: hydroCHLOROthiazide 25 MG TAB PO SCH (09:16)
--- NOTE | 2019-01-28 11:25 | IPNPDOC ---
Text Note Date of Service The patient was seen on 01/28/19. NOTE SUBJECTIVE: Mr. Thornton was admitted with severe infection with abscess to his left forearm requiring surgical debridement and drainage and subsequent wound VAC placement. Organisms isolated included Streptococcus intermedius and Prevotella. Patient has been on antibiotics in the form of Unasyn. Wound site is doing well. OBJECTIVE: See vital signs below General: The patient is rouseable and ambulatory with some assistance HENT: Neck is supple to passive motion, he has scleral injection and tacky mucosa Cardiovascular: Regular rate and rhythm with a normal S1 and S2 Respiratory: Generally clear to auscultation with good air movement Abdomen: Soft, nontender, nondistended. Extremities: Compression dressing is off to left upper extremity, wound vac is in place. Swelling and pain remain reduced and radial pulses are palpable. Pedal pulses are palpable and there is no distal pedal edema. Neuro: Patient does not demonstrate focal neuromotor or sensory deficits Psych: The patient appears to understand his clinical condition ASSESSMENT/PLAN: 1. Left forearm abscess. The patient remains on IV Unasyn for treatment of organisms in the form of Streptococcus and Prevotella. He is status post incision and drainage. Patient currently has a wound VAC. When discharge could be transitioned to oral Augmentin (10 - 14 day course). Plans are for him to be able to go home with home health services with wound VAC. Pain control appears adequate with scheduled OxyContin and breakthrough oxycodone. 2. Osv-wvxyhrc-ucpszdehy diabetes mellitus. With adjustment we continue to manage the patient's glucose control. 3. History of substance abuse. The patient's drugs of choice include cocaine and Carmenza. He does not really have a history of opiate abuse. Patient is interested in obtaining a mental health appointment-he has underlying bipolar disorder. He is on a number of psychotropic medications. Additionally, he is interested in drug rehabilitation and is being referred to [facility]. 4. CKD Stage III Current renal function remains stable. 5. Essential hypertension Patient is on Lasix, clonidine, Coreg and Norvasc. Disposition. Plans are for the patient to be discharged to home with the wound VAC. He'll require home health services for wound care and dressing changes. Additional services may include Meals on Wheels. Discharge is anticipated for next week as we are still awaiting his wound VAC for home. VS,Fishbone, I+O VS, Fishbone, I+O Laboratory Tests 01/28/19 05:42 Red Blood Count 3.20 L, Mean Corpuscular Volume 82.5, Mean Corpuscular Hemoglobin 27.2, Mean Corpuscular Hemoglobin Concent 33.0, Red Cell Distribution Width 15.0 H, Neutrophils (%) (Auto) 35.6 L, Lymphocytes (%) (Auto) 51.0 H, Mo nocytes (%) (Auto) 10.1 H, Eosinophils (%) (Auto) 2.6, Basophils (%) (Auto) 0.4, Neutrophils # (Auto) 2.5, Lymphocytes # (Auto) 3.6, Monocytes # (Auto) 0.7, Eosinophils # (Auto) 0.2, Basophils # (Auto) 0.0, Calcium Level 8.2 L Vital Signs Date Time Temp Pulse Resp B/P (MAP) Pulse Ox O2 Delivery O2 Flow Rate FiO2 01/28/19 09:16 74 124/58 01/28/19 09:11 18 01/28/19 06:00 97.8 97 I&O- Last 24 Hours up to 6 AM 01/28/19 06:00 Intake Total 1940 ml Output Total 0 ml Balance 1940 ml ARIAN DOTSON MD Jan 28, 2019 11:25
[2019-01-28] MEDS: ULTRACET TAB PO PRN (13:04)
[2019-01-28 14:00] VITALS: BP 152/72
[2019-01-28] MEDS: oxyCODONE 5MG TAB PO PRN (17:19)
[2019-01-28] MEDS: PRAZOSIN 1 MG CAP PO SCH (21:11)
[2019-01-28 22:00] VITALS: BP 160/90
[2019-01-29] MEDS: AMPICILLIN SOD/SULBACTAM SOD 3 GM in D5W MINI-BAG PLUS 100 ML IV SCH ×4 (05:06→21:55)
[2019-01-29] MEDS: GABAPENTIN 400 MG CAP PO SCH ×3 (05:12→21:54)
[2019-01-29] MEDS: ACETAMINOPHEN 650MG ER TAB (TYLENOL ARTHRITIS) PO SCH ×3 (05:13→21:54)
[2019-01-29 06:00] VITALS: BP 150/80
[2019-01-29] MEDS: CARVedilol 12.5 MG TAB PO SCH ×2 (09:44→21:52)
[2019-01-29] MEDS: cloNIDine 0.1 MG TAB PO SCH ×3 (09:45→21:52)
[2019-01-29] MEDS: LACTOBACILLUS ACIDOPHILUS CAP (BACID) PO SCH (09:45)
[2019-01-29] MEDS: DULoxetine 30 MG CAP (CYMBALTA) PO SCH (09:45)
[2019-01-29] MEDS: oxyCODONE 15 MG CR TAB PO SCH ×2 (09:45→21:55)
[2019-01-29] MEDS: FUROSEMIDE 20 MG TAB PO SCH (09:46)
[2019-01-29] MEDS: NICOTINE POLACRILEX 2 MG GUM PO PRN ×4 (09:46→21:55)
[2019-01-29] MEDS: LEVEMIR (INSULIN DETEMIR) 1 UNITS/0.01ML SC SCH ×2 (09:46→21:54)
[2019-01-29] MEDS: THIAMINE 100 MG TAB PO SCH (09:46)
[2019-01-29] MEDS: FOLIC ACID 1 MG TAB PO SCH (09:46)
[2019-01-29] MEDS: MULTIVITAMINS/MINERALS THERAP 1 TAB PO SCH (09:46)
[2019-01-29] MEDS: amLODIPine 10 MG TAB PO SCH (09:47)
[2019-01-29] MEDS: QUEtiapine FUMARATE 100 MG TAB PO SCH ×2 (09:47→21:53)
[2019-01-29] MEDS: HumaLOG INSULIN (NovoLOG) PER UNIT SC SCH ×4 (09:47→21:00)
[2019-01-29] MEDS: HEPARIN SOD (PORCINE) 5000 UNITS/ML VIAL SC SCH ×2 (09:48→21:54)
[2019-01-29] MEDS: hydroCHLOROthiazide 25 MG TAB PO SCH (09:48)
[2019-01-29] MEDS: DIVALPROEX 250 MG TAB PO SCH ×2 (11:34→21:53)
[2019-01-29 14:00] VITALS: BP 144/75
--- NOTE | 2019-01-29 21:28 | IPNPDOC ---
Text Note Date of Service The patient was seen on 01/29/19. NOTE SUBJECTIVE: Mr. Thornton was admitted with severe infection with abscess to his left forearm requiring surgical debridement and drainage and subsequent wound VAC placement. Organisms isolated included Streptococcus intermedius and Prevotella. Patient has been on antibiotics in the form of Unasyn. Wound site is doing well. He notes increased pain in her left arm today. Patient endorses that he wants to go home with wound vac and follow up. Arranging outpatient nursing follow up for wound vac management. OBJECTIVE: See vital signs below General: Awake, speaking freely, NAD HENT: Neck is supple to passive motion Cardiovascular: Regular rate and rhythm with a normal S1 and S2 Respiratory: Generally clear to auscultation with good air movement Abdomen: Soft, nontender, nondistended. Bowel sounds present. Extremities: L eft upper extremity wound vac is in place. Swelling and pain present however good pulses and sensation distally to wound. Pedal pulses are palpable and there is no distal pedal edema. Neuro: Patient does not demonstrate focal neuromotor or sensory deficits Psych: The patient appears to understand his clinical condition ASSESSMENT/PLAN: 1. Left forearm abscess. The patient remains on IV Unasyn for treatment of organisms in the form of Streptococcus and Prevotella. He is status post incision and drainage. Patient currently has a wound VAC. When discharge could be transitioned to oral A ugmentin (10 - 14 day course). Plans are for him to be able to go home with home health services with wound VAC, possibly able to make house visit Tuesday. Pain control appears adequate with scheduled OxyContin and breakthrough oxycodone. 2. Kqz-gvwutlh-emjnjusmx diabetes mellitus. With adjustment we continue to manage the patient's glucose control. 3. History of substance abuse. The patient's drugs of choice include cocaine and Carmenza. He does not really have a history of opiate abuse. Patient is interested in obtaining a mental health appointment-he has underlying bipolar disorder. He is on a number of psychotropic medications. Additionally, he is interested in drug rehabilitation and is being referred to [facility] as outpatient. 4. CKD Stage III Current renal function remains stable. 5. Essential hypertension Patient is on Lasix, clonidine, Coreg and Norvasc. Plans are for the patient to be discharged to home with the wound VAC. He'll require home health services for wound care and dressing changes, can likely start Tuesday. Additional services may include Meals on Wheels. Discharge is anticipated for next week as we are still awaiting his wound VAC for home. Vital Signs Date Time Temp Pulse Resp B/P (MAP) Pulse Ox O2 Delivery O2 Flow Rate FiO2 01/29/19 16:50 153/90 01/29/19 14:00 98.3 74 18 144/75 (98) 98 01/29/19 09:45 16 01/29/19 09:44 94 155/89 01/29/19 06:00 97.7 70 15 150/80 (103) 94 01/28/19 22:00 97.4 81 16 160/90 (113) 96 Intake & Output 01/29/19 06:00 Intake Total 2220 ml Output Total 1 ml Balance 2219 ml Laboratory Tests 01/29/19 05:09: Bedside Glucose (Misc Panel) 143H 01/29/19 11:40: Bedside Glucose (Misc Panel) 238H 01/29/19 16:39: Bedside Glucose (Misc Panel) 118H Microbiology 01/23/19 Blood Culture - Final, Complete NO GROWTH AFTER 5 DAYS Current Medications Medications (Trade) Dose Ordered Sig/Tee Route PRN Reason Start Time Stop Time Status Last Admin Dose Admin Acetaminophen (Tylenol Arthritis Er) 650 mg Q8H PO 01/10/19 22:00 01/29/19 13:19 650 MG Al Hydrox/Mg Hydrox/Simethicone (Mylanta) 30 ml DAILYPRN PRN PO DYSPEPSIA 01/10/19 22:30 01/15/19 23:38 30 ML Amlodipine Besylate (Norvasc) 10 mg DAILY PO 01/24/19 09:00 01/29/19 09:47 10 MG Ampicillin Sodium/ Sulbactam Sodium 3 gm/Dextrose 100 ml @ 200 mls/hr Q6H IV 01/18/19 16:00 01/29/19 16:50 200 MLS/HR Carvedilol (COReg) 25 mg BID PO 01/11/19 09:00 01/29/19 09:44 25 MG Clonidine HCl (Catapres) 0.1 mg TID PO 01/18/19 14:00 01/29/19 16:50 0.1 MG Divalproex Sodium (Depakote) 750 mg BID PO 01/10/19 22:30 01/29/19 11:34 750 MG Duloxetine HCl (Cymbalta) 90 mg DAILY PO 01/17/19 09:00 01/29/19 09:45 90 MG Folic Acid (Folic Acid) 1 mg DAILY PO 01/11/19 09:00 01/29/19 09:46 1 MG Furosemide (Lasix) 20 mg DAILY PO 01/23/19 09:00 01/29/19 09:46 20 MG Gabapentin (Neurontin) 400 mg Q8H PO 01/16/19 22:00 01/29/19 13:19 400 MG Heparin Sodium (Porcine) (Heparin) 5,000 units Q12H SC 01/11/19 09:00 01/29/19 09:48 5,000 UNITS Hydrochlorothiazide (Hydrodiuril) 25 mg DAILY PO 01/24/19 09:00 01/29/19 09:48 25 MG Insulin Detemir (Levemir Insulin) 30 units QHS SC 01/23/19 21:00 01/28/19 21:15 30 UNITS Insulin Human Lispro (HumaLOG INSULIN) SEE PROTOCOL TABLE QHS SC 01/15/19 21:00 01/24/19 20:56 2 UNITS Lactobacillus Acidophilus (Bacid) 1 ea DAILY PO 01/11/19 09:00 01/29/19 09:45 1 EA Multivitamins (Theragram-M) 1 tab DAILY PO 01/11/19 09:00 01/29/19 09:46 1 TAB Naloxone HCl (Narcan) 0.1 mg Q5MP PRN IV drowsiness 01/12/19 12:30 01/15/19 00:56 0.1 MG Nicotine (Nicorette) 4 mg Q2HP PRN PO NICOTINE WITHDRAWAL 01/14/19 12:00 01/29/19 17:38 4 MG Oxycodone HCl (OxyCONTIN) 30 mg BID PO 01/24/19 21:00 01/29/19 09:45 30 MG Oxycodone HCl (Roxicodone, Oxyir) 5 mg Q4HP PRN PO PAIN 01/25/19 14:30 01/28/19 17:19 5 MG Prazosin HCl (Minipress) 8 mg QHS PO 01/23/19 21:00 01/28/19 21:11 8 MG Quetiapine Fumarate (SEROquel) 300 mg QHS PO 01/16/19 21:00 01/28/19 21:12 300 MG Thiamine HCl (Thiamine HCl) 100 mg DAILY PO 01/11/19 09:00 01/29/19 09:46 100 MG Tramadol/ Acetaminophen (Ultracet 37.5/ 325 Mg) 1 tab Q4HP PRN PO BACK PAIN 01/16/19 12:30 01/28/19 13:04 1 TAB VS,Fishbone, I+O VS, Fishbone, I+O Vital Signs Date Time Temp Pulse Resp B/P (MAP) Pulse Ox O2 Delivery O2 Flow Rate FiO2 01/29/19 16:50 153/90 01/29/19 14:00 98.3 74 18 98 I&O- Last 24 Hours up to 6 AM 01/29/19 06:00 Intake Total 2220 ml Output Total 1 ml Balance 2219 ml PATTI ADAMS MD Jan 29, 2019 21:28
[2019-01-29] MEDS: PRAZOSIN 1 MG CAP PO SCH (21:53)
[2019-01-29 22:00] VITALS: BP 137/78
[2019-01-30] MEDS: GABAPENTIN 400 MG CAP PO SCH ×3 (05:07→21:51)
[2019-01-30] MEDS: ACETAMINOPHEN 650MG ER TAB (TYLENOL ARTHRITIS) PO SCH ×3 (05:07→21:51)
[2019-01-30] MEDS: AMPICILLIN SOD/SULBACTAM SOD 3 GM in D5W MINI-BAG PLUS 100 ML IV SCH (05:07)
[2019-01-30] MEDS: NICOTINE POLACRILEX 2 MG GUM PO PRN ×6 (05:08→22:01)
[2019-01-30] MEDS: oxyCODONE 5MG TAB PO PRN (05:09)
[2019-01-30 06:00] VITALS: BP 134/80
--- NOTE | 2019-01-30 09:19 | IPN ---
DATE: 01/29/2019 Mr. Virk continues complaining of left arm pain but this has markedly improved. He has no fever or chills. No nausea, vomiting or diarrhea. No abdominal pain. Wound VAC is still being changed Tuesday, Tuesday, and Tuesday. The plan is for him to go home with a wound VAC, but he is concerned that they do not want to give him pain medication due to his addiction, but he still has significant pain. Make sure there is some note is dated for January 29. Temperature is 97.7, pulse 81, respirations 17, blood pressure 137/78, O2 sat 99% on room air. LABS: On 01/28 white count 7, hemoglobin 8.7, hematocrit 26.4, platelets 343, 35% neutrophils, 51% lymphocytes, 10% monocytes. Sodium 136, potassium 3.6, chloride 98, bicarb 31, BUN 15, creatinine 1.85, glucose 221. PHYSICAL EXAMINATION: Heart normal S1-S2. No murmurs, rubs or gallops. Lungs are clear. No wheezes, rales or rhonchi. Abdomen soft, nontender. No hepatosplenomegaly. Extremities no edema. Left arm wound VAC in place. He still has some induration around the incision where the abscess was on the forearm with some tenderness, but upper extremity around the biceps no edema, normal range of motion of the shoulder, normal range of motion of the fingers. IMPRESSION: 1. Left forearm abscess with Streptococcus intermedius and Prevotella doing well with IV Unasyn and wound VAC. Plan will be to switch to p.o. Augmentin is currently day number 12 of IV Unasyn. 2. Chronic kidney disease. Creatinine is now stable around 1.822. 3. Insulin dependent diabetes. Glucose has been pretty well-controlled between 115 and 238. 4. Chronic pain. The patient is currently on oxycodone 30 mg p.o. b.i.d. The concern is change of his wound VAC and discharge medication with narcotics. PLAN: Discontinue IV Unasyn. Switch to p.o. Augmentin to finish a total of 3-week course, currently day 12 out of 21.
[2019-01-30] MEDS: AUGMENTIN 875 MG TAB PO SCH ×2 (09:29→21:48)
[2019-01-30] MEDS: CARVedilol 12.5 MG TAB PO SCH ×2 (09:29→21:49)
[2019-01-30] MEDS: LACTOBACILLUS ACIDOPHILUS CAP (BACID) PO SCH (09:29)
[2019-01-30] MEDS: hydroCHLOROthiazide 25 MG TAB PO SCH (09:31)
[2019-01-30] MEDS: amLODIPine 10 MG TAB PO SCH (09:31)
[2019-01-30] MEDS: THIAMINE 100 MG TAB PO SCH (09:31)
[2019-01-30] MEDS: MULTIVITAMINS/MINERALS THERAP 1 TAB PO SCH (09:31)
[2019-01-30] MEDS: FOLIC ACID 1 MG TAB PO SCH (09:31)
[2019-01-30] MEDS: DULoxetine 30 MG CAP (CYMBALTA) PO SCH (09:31)
[2019-01-30] MEDS: QUEtiapine FUMARATE 100 MG TAB PO SCH ×2 (09:31→21:50)
[2019-01-30] MEDS: FUROSEMIDE 20 MG TAB PO SCH (09:32)
[2019-01-30] MEDS: cloNIDine 0.1 MG TAB PO SCH ×3 (09:32→21:48)
[2019-01-30] MEDS: DIVALPROEX 250 MG TAB PO SCH ×2 (09:32→21:49)
[2019-01-30] MEDS: HEPARIN SOD (PORCINE) 5000 UNITS/ML VIAL SC SCH ×2 (09:33→21:50)
[2019-01-30] MEDS: oxyCODONE 15 MG CR TAB PO SCH ×2 (09:33→21:51)
[2019-01-30] MEDS: LEVEMIR (INSULIN DETEMIR) 1 UNITS/0.01ML SC SCH ×2 (09:41→21:51)
[2019-01-30] MEDS: HumaLOG INSULIN (NovoLOG) PER UNIT SC SCH ×4 (09:42→21:00)
--- NOTE | 2019-01-30 12:47 | IPN ---
DATE: 01/29/2019 The patient was seen and his dressing / wound vac was removed today and essentially has had some nice progressive improvement of his overall site. It is been decreasing in size and the inflammatory subcutaneous tissue has been decreasing in amount. He has been afebrile and his white count has been normal for several days now. He has actual granulation tissue at about 95% of this. IMPRESSION AND PLAN: The patient has nicely healing wound by secondary intention. At this point, my recommendation is that if he still going to be in the hospital, I would recommend continuing with a wound vac, he seems to be making some good progress with this. However, if he is discharged to home, he could have a wet-to-dry normal saline dressing change with an James wrap or Coban on a daily basis, but at this point no further surgical intervention is necessary and he seems to be making some good progress and thus he can follow up with myself in 2 weeks, sooner if there is any questions or concerns or if you would like him to be reevaluated.
[2019-01-30 14:00] VITALS: BP 156/90
[2019-01-30] MEDS ORDERED: ONDANSETRON 4MG/2ML VIAL (J2405) IV SCH (14:30)
--- NOTE | 2019-01-30 17:11 | IPNPDOC ---
Text Note Date of Service The patient was seen on 01/30/19. NOTE S: patient states pain is "bearable". He is using 30mg oxycontin BID and is only needed 1-2 percocet for breakthru pain. His left forearm has wound vac and continues to heal by secondary intent. O: Vitals as below General: pleasant, NAD AAOx3 HRRR LCTA Ext: left arm - no edema/ no lymphedema. ROM intact for wrist, fingers and elbows (improved from prior week) A/P: A/P: 1. Left forearm abscess (secondary to IVDA) growing Streptococcus and Prevotella on IV Unasyn. ID & surgery consulted. U/S of the Ext notable for 3.8 x 2.7 x 6 cm abscess on admission s/p drainage by IR on 01/12 Repeat U/S of the LUE notable for repeat Abscess on 01/14 MRI with large 11cm abcess on 01/19/19 Blood cultures negative. ; Wound culture notable for streptococcus and pre votella - on unasyn s/p Surgical Intervention I&D with Dr. Cardenasuga 01/14/19 s/p bedside I&D abscess by Dr Pike (01/19/19 and 01/22/19) No signs of compartment syndrome; Consult dr Calderon (ortho) - no further interventions/signed off on case Consult with Dr Recinos (ID). - Changed from Unasyn to Augmentin to finish a total of 3-week course, currently day 12 out of 21. Will be discharged home with home health, wound vac M,W,F. 2. Left forearm tenosynovitis - PT/OT consulted. continue current treatment plan 3. Pain control - pain medications and psych meds adjusted to avoid oversedation. Currently on oxycontin 30mg BID with prn percocet breakthru and is being referred to [facility] as outpatient. 4. History of IV drug abuse - (crack cocaine/omero) - interested in rehab - and is being referred to [facility] as outpatient. 5. Diabetes mellitus - poor control with blood sugars. no hypoglycemia. improved control with current regimen 6. Chronic kidney disease stage III probably secondary to essential HTN and DM - RESOLVED 7. Peripheral neuropathy due to DM; Continue gabapentin for renally adjusted dose 8. Essential Hypertension - continue Coreg,prazosin,clonidine TID 9 Anxiety/depression - stable with early med adjustments Disposition - possible d/c home tomorrow with services Current Medications Medications (Trade) Dose Ordered Sig/Tee Route PRN Reason Start Time Stop Time Status Last Admin Dose Admin Acetaminophen (Tylenol Arthritis Er) 650 mg Q8H PO 01/10/19 22:00 01/30/19 13:08 Al Hydrox/Mg Hydrox/Simethicone (Mylanta) 30 ml DAILYPRN PRN PO DYSPEPSIA 01/10/19 22:30 01/15/19 23:38 Amlodipine Besylate (Norvasc) 10 mg DAILY PO 01/24/19 09:00 01/30/19 09:31 Amlodipine Besylate (Norvasc) 10 mg DAILY STAT PO 01/23/19 14:23 01/23/19 14:25 DC 01/23/19 14:31 Amoxicillin/ Clavulanate Potassium (Augmentin) 875 mg BID PO 01/30/19 09:00 01/30/19 09:29 Ampicillin Sodium/ Sulbactam Sodium 3 gm/Dextrose 100 ml @ 200 mls/hr Q6H IV 01/18/19 16:00 01/30/19 07:31 DC 01/30/19 05:07 Carvedilol (COReg) 25 mg BID PO 01/11/19 09:00 01/11/19 09:00 DC Carvedilol (COReg) 25 mg BID PO 01/11/19 09:00 01/30/19 09:29 Ceftriaxone Sodium 1 gm/ Dextrose 50 ml @ 100 mls/hr Q24H IV 01/15/19 14:00 01/18/19 16:00 DC 01/18/19 13:22 Clindamycin Phosphate 900 mg/ IV Miscellaneous Supplies 50 ml @ 50 mls/hr Q8H IV 01/11/19 04:00 01/15/19 07:28 DC 01/15/19 03:25 Clonidine HCl (Catapres) 0.1 mg BID PO 01/16/19 21:00 01/18/19 14:03 DC 01/18/19 08:07 Clonidine HCl (Catapres) 0.1 mg TID PO 01/18/19 14:00 01/30/19 09:32 Dextrose (Dextrose 50%) 25 ml ASDIRECTED PRN IV SEE LABEL COMMENTS 01/10/19 22:45 Dextrose (Dextrose 50%) 50 ml STAT STAT IV 01/13/19 10:49 01/13/19 10:51 DC 01/13/19 10:55 Dextrose (Dextrose 50%) 50 ml STAT STAT IV 01/13/19 10:49 01/13/19 10:54 DC 01/13/19 10:57 Divalproex Sodium (Depakote) 750 mg BID PO 01/10/19 22:30 01/30/19 09:32 Duloxetine HCl (Cymbalta) 90 mg DAILY PO 01/17/19 09:00 01/30/19 09:31 Fentanyl Citrate (Sublimaze) 25 mcg Q5MP PRN IV MODERATE PAIN (PS 4-7) 01/14/19 17:30 01/14/19 18:30 DC Folic Acid (Folic Acid) 1 mg DAILY PO 01/11/19 09:00 01/30/19 09:31 Furosemide (Lasix) 20 mg DAILY PO 01/23/19 09:00 01/30/19 09:32 Gabapentin (Neurontin) 400 mg Q8H PO 01/16/19 22:00 01/30/19 13:08 Gabapentin (Neurontin) 600 mg BID PO 01/15/19 21:00 01/16/19 12:52 DC 01/16/19 08:51 Gabapentin (Neurontin) 600 mg TID PO 01/11/19 09:00 01/15/19 13:29 DC 01/14/19 21:16 Gabapentin (Neurontin) 600 mg TID PO 01/11/19 09:00 01/11/19 09:00 DC Glucagon (Glucagon) 1 mg ASDIRECTED PRN SC SEE LABEL COMMENTS 01/10/19 22:45 Glucose (Glucose) 16 GM ASDIRECTED PRN PO SEE LABEL COMMENTS 01/10/19 22:45 Heparin Sodium (Porcine) (Heparin) 5,000 units Q12H [place] 01/11/19 09:00 01/30/19 09:33 Home Med (Med Rec Complete!) ASDIRECTED XX 01/10/19 21:30 01/10/19 21:32 DC Hydrochlorothiazide (Hydrodiuril) 25 mg DAILY PO 01/24/19 09:00 01/30/19 09:31 Hydrochlorothiazide (Hydrodiuril) 25 mg DAILY STAT PO 01/23/19 14:23 01/23/19 14:25 DC 01/23/19 14:31 Insulin Detemir (Levemir Insulin) 10 units QHS [place] 01/20/19 21:00 01/23/19 14:15 DC 01/22/19 22:15 Insulin Detemir (Levemir Insulin) 20 units DAILY [place] 01/15/19 09:00 01/16/19 13:33 DC 01/16/19 08:48 Insulin Detemir (Levemir Insulin) 24 units DAILY [place] 01/17/19 09:00 01/18/19 14:12 DC 01/18/19 08:09 Insulin Detemir (Levemir Insulin) 30 units DAILY [place] 01/19/19 09:00 01/30/19 09:41 Insulin Detemir (Levemir Insulin) 30 units QHS [place] 01/23/19 21:00 01/29/19 21:54 Insulin Detemir (Levemir Insulin) 40 units QHS [place] 01/13/19 21:00 01/14/19 09:31 DC 01/13/19 21:02 Insulin Detemir (Levemir Insulin) 85 units QHS [place] 01/10/19 22:30 01/13/19 13:59 DC 01/12/19 21:14 Insulin Human Lispro (HumaLOG INSULIN) SEE PROTOCOL TABLE AC [place] 01/15/19 07:30 01/30/19 09:42 Insulin Human Lispro (HumaLOG INSULIN) SEE PROTOCOL TABLE AC [place] 01/12/19 12:00 01/14/19 09:31 DC 01/13/19 08:22 Insulin Human Lispro (HumaLOG INSULIN) SEE PROTOCOL TABLE QHS [place] 01/15/19 21:00 01/24/19 20:56 Insulin Human Lispro (HumaLOG INSULIN) SEE PROTOCOL TABLE QHS [place] 01/12/19 21:00 01/14/19 09:31 DC 01/13/19 21:02 Insulin Human Lispro (HumaLOG INSULIN) See Protocol Table AC [place] 01/11/19 07:30 01/11/19 07:30 DC Insulin Human Lispro (HumaLOG INSULIN) See Protocol Table Q6H [place] 01/11/19 00:00 01/12/19 11:46 DC 01/11/19 18:07 Insulin Human Regular 100 units/ Sodium Chloride 100 ml @ 8.1 mls/hr [id number] IV 01/10/19 18:56 01/10/19 23:55 DC 01/10/19 19:35 Insulin Human Regular 100 units/ Sodium Chloride 100 ml @ 1 mls/hr Q24H IV 01/23/19 08:00 01/23/19 08:00 DC Insulin Human Regular 100 units/ Sodium Chloride 100 ml @ 1 mls/hr Q24H IV 01/23/19 09:00 01/23/19 09:00 DC Lactated Ringer's 1,000 ml @ 100 mls/hr Q10H IV 01/14/19 17:30 01/14/19 18:30 DC Lactated Ringer's 1,500 ml @ 100 mls/hr Q15H IV 01/13/19 08:30 01/13/19 23:29 DC 01/13/19 18:34 Lactobacillus Acidophilus (Bacid) 1 ea DAILY PO 01/11/19 09:00 01/30/19 09:29 Lisinopril (Prinivil) 40 mg DAILY PO 01/11/19 09:00 01/13/19 07:56 DC 01/12/19 09:56 Magnesium Hydroxide (Milk Of Magnesia) 30 ml DAILYPRN PRN PO CONSTIPATION 01/10/19 22:30 Miscellaneous (Unresolved Clarification Entry) SEE LABEL COMMENTS DAILY XX 01/29/19 09:00 01/29/19 11:04 DC Morphine Sulfate (Morphine Sulfate Inj) 1 mg Q6HP PRN IV PAIN 01/14/19 09:30 01/20/19 15:29 DC 01/18/19 17:09 Morphine Sulfate (Morphine Sulfate Inj) 2 mg Q4H PRN IV PAIN 01/20/19 15:30 01/25/19 14:31 DC 01/25/19 00:17 Multivitamins (Theragram-M) 1 tab DAILY PO 01/11/19 09:00 01/30/19 09:31 Naloxone HCl (Narcan) 0.1 mg Q5MP PRN IV drowsiness 01/12/19 12:30 01/15/19 00:56 Nicotine (Nicoderm Cq 21mg) 1 patch DAILY TD 01/14/19 09:00 01/14/19 11:49 DC Nicotine (Nicorette) 4 mg Q2HP PRN PO NICOTINE WITHDRAWAL 01/14/19 12:00 01/30/19 13:08 Non-Formulary Medication (Insulin Iv Rate Change Documentation ml/ Hr) ASDIRECTED XX 01/23/19 07:00 01/23/19 08:51 DC Non-Formulary Medication (Insulin Iv Rate Change Documentation ml/ Hr) ASDIRECTED XX 01/10/19 19:00 01/10/19 23:58 DC Ondansetron HCl (ZOFRAN INJection) 4 mg Q4H IV 01/30/19 14:30 01/30/19 14:56 Ondansetron HCl (ZOFRAN INJection) 4 mg Q4HP PRN IV NAUSEA OR VOMITING 01/14/19 17:30 01/14/19 18:30 DC Oxazepam (Serax) 30 mg BID PO 01/11/19 09:00 01/11/19 09:00 DC Oxazepam (Serax) 30 mg BID PO 01/11/19 09:00 01/12/19 13:37 DC 01/12/19 09:56 Oxycodone HCl (OxyCONTIN) 15 mg BID PO 01/23/19 21:00 01/24/19 13:02 DC 01/24/19 10:41 Oxycodone HCl (OxyCONTIN) 30 mg BID PO 01/24/19 21:00 01/30/19 09:33 Oxycodone HCl (Roxicodone, Oxyir) 5 mg Q4HP PRN PO PAIN 01/17/19 10:15 01/20/19 15:29 DC 01/20/19 10:18 Oxycodone HCl (Roxicodone, Oxyir) 5 mg Q4HP PRN PO PAIN 01/25/19 14:30 01/30/19 05:09 Oxycodone HCl (Roxicodone, Oxyir) 10 mg Q4HP PRN PO PAIN 01/20/19 15:30 01/25/19 14:31 DC 01/25/19 05:07 Oxycodone/ Acetaminophen (Percocet 5mg/ 325mg Tablet) 1 tab ASDIRECTED PRN PO MILD/MODERATE PAIN (PS 1-7) 01/14/19 17:30 01/14/19 18:30 DC Oxycodone/ Acetaminophen (Percocet 5mg/ 325mg Tablet) 1 tab Q6HP PRN PO MILD/MODERATE PAIN (PS 1-7) 01/11/19 09:30 01/12/19 13:37 DC Oxycodone/ Acetaminophen (Percocet 5mg/ 325mg Tablet) 2 tab Q6HP PRN PO SEVERE PAIN (PS 8-10) 01/11/19 09:30 01/12/19 13:37 DC 01/12/19 09:53 Potassium Chloride/Sodium Chloride 1,000 ml @ 100 mls/hr Q10H IV 01/23/19 08:00 01/23/19 08:50 DC Prazosin HCl (Minipress) 4 mg QHS PO 01/11/19 21:00 01/23/19 06:37 DC 01/22/19 22:14 Prazosin HCl (Minipress) 4 mg QHS PO 01/11/19 21:00 01/11/19 21:00 DC Prazosin HCl (Minipress) 8 mg QHS PO 01/23/19 21:00 01/29/19 21:53 Quetiapine Fumarate (SEROquel) 100 mg DAILY PO 01/11/19 09:00 01/30/19 09:31 Quetiapine Fumarate (SEROquel) 300 mg QHS PO 01/16/19 21:00 01/29/19 21:53 Quetiapine Fumarate (SEROquel) 400 mg QHS PO 01/11/19 21:00 01/16/19 12:52 DC 01/15/19 21:22 Quetiapine Fumarate (SEROquel) 400 mg QHS PO 01/11/19 21:00 01/11/19 21:00 DC Sertraline HCl (Zoloft) 150 mg DAILY PO 01/11/19 09:00 01/16/19 13:28 DC 01/16/19 08:49 Sodium Chloride 1,000 ml @ 100 mls/hr Q10H IV 01/14/19 10:00 01/15/19 00:59 DC 01/14/19 18:02 Sodium Chloride 1,000 ml @ 100 mls/hr Q10H IV 01/10/19 22:45 01/13/19 08:21 DC 01/13/19 03:33 Spironolactone (Aldactone) 25 mg QAM STAT PO 01/23/19 14:17 01/23/19 14:24 DC 01/23/19 14:22 Thiamine HCl (Thiamine HCl) 100 mg DAILY PO 01/11/19 09:00 01/30/19 09:31 Tramadol/ Acetaminophen (Ultracet 37.5/ 325 Mg) 1 tab Q4HP PRN PO BACK PAIN 01/16/19 12:30 01/28/19 13:04 Trazodone HCl (Desyrel) 50 mg QHSP PRN PO INSOMNIA 01/10/19 22:30 01/13/19 10:16 DC Vancomycin HCl 1000 mg/IV Miscellaneous Supplies 1 each/ Dextrose 270 ml @ 270 mls/hr Q18H IV 01/15/19 11:00 01/15/19 13:31 DC 01/15/19 12:02 VS,Fishbone, I+O VS, Fishbone, I+O Vital Signs Date Time Temp Pulse Resp B/P (MAP) Pulse Ox O2 Delivery O2 Flow Rate FiO2 01/30/19 14:00 97.4 74 18 156/90 (112) 98 I&O- Last 24 Hours up to 6 AM 01/30/19 06:00 Intake Total 1360 ml Balance 1360 ml SHAYY SILVEIRA DO Jan 30, 2019 17:11
[2019-01-30] MEDS ORDERED: ONDANSETRON 4MG/2ML VIAL (J2405) IV PRN (17:30)
[2019-01-30] MEDS: PRAZOSIN 1 MG CAP PO SCH (21:49)
[2019-01-30 22:00] VITALS: BP 164/80
[2019-01-31] MEDS: NICOTINE POLACRILEX 2 MG GUM PO PRN ×6 (01:08→22:35)
[2019-01-31] MEDS: oxyCODONE 5MG TAB PO PRN ×2 (01:50→05:58)
[2019-01-31] MEDS: ACETAMINOPHEN 650MG ER TAB (TYLENOL ARTHRITIS) PO SCH ×3 (05:14→22:35)
[2019-01-31] MEDS: GABAPENTIN 400 MG CAP PO SCH ×3 (05:14→22:35)
[2019-01-31 06:00] VITALS: BP 161/78
[2019-01-31 06:48] LABS: HEMATOCRIT 23.5 % (42.0-52.0); HEMOGLOBIN 7.8 g/dl (13.5-17.5); MEAN CORPUSCULAR HEMOGLOBIN 27.5 pg (27.0-33.0); MEAN CORPUSCULAR HGB CONC 33.2 g/dl (32.0-36.5); MEAN CORPUSCULAR VOLUME 82.7 fl (80.0-96.0); PLATELET COUNT, AUTOMATED 278 10^3/uL (150-450); RED BLOOD COUNT 2.84 10^6/uL (4.30-6.10); WHITE BLOOD COUNT 5.7 10^3/uL (4.0-10.0)
[2019-01-31 07:17] LABS: ALBUMIN 1.5 GM/DL (3.2-5.2); BILIRUBIN,TOTAL 0.2 MG/DL (0.2-1.0); C REACTIVE PROTEIN QUANTITATIV 1.63 MG/DL (0.00-0.30); CALCIUM LEVEL 8.5 MG/DL (8.5-10.1); CREATININE FOR GFR 2.11 MG/DL (0.70-1.30); GLOMERULAR FILTRATION RATE 43.3 (>60); POTASSIUM SERUM 3.3 MEQ/L (3.5-5.1); TOTAL PROTEIN 7.6 GM/DL (6.4-8.2)
[2019-01-31] MEDS: HEPARIN SOD (PORCINE) 5000 UNITS/ML VIAL SC SCH ×2 (09:51→22:35)
[2019-01-31] MEDS: AUGMENTIN 875 MG TAB PO SCH ×2 (09:51→22:32)
[2019-01-31] MEDS: LEVEMIR (INSULIN DETEMIR) 1 UNITS/0.01ML SC SCH ×2 (09:51→22:43)
[2019-01-31] MEDS: HumaLOG INSULIN (NovoLOG) PER UNIT SC SCH ×4 (09:51→22:35)
[2019-01-31] MEDS: THIAMINE 100 MG TAB PO SCH (09:52)
[2019-01-31] MEDS: MULTIVITAMINS/MINERALS THERAP 1 TAB PO SCH (09:52)
[2019-01-31] MEDS: QUEtiapine FUMARATE 100 MG TAB PO SCH ×2 (09:52→22:34)
[2019-01-31] MEDS: oxyCODONE 15 MG CR TAB PO SCH ×2 (09:53→22:34)
[2019-01-31] MEDS: DIVALPROEX 250 MG TAB PO SCH ×2 (09:53→22:33)
[2019-01-31] MEDS: cloNIDine 0.1 MG TAB PO SCH ×3 (09:55→22:32)
[2019-01-31] MEDS: DULoxetine 30 MG CAP (CYMBALTA) PO SCH (09:55)
[2019-01-31] MEDS: LACTOBACILLUS ACIDOPHILUS CAP (BACID) PO SCH (09:55)
[2019-01-31] MEDS: CARVedilol 12.5 MG TAB PO SCH ×2 (09:56→22:33)
[2019-01-31] MEDS: FOLIC ACID 1 MG TAB PO SCH (09:56)
[2019-01-31] MEDS: amLODIPine 10 MG TAB PO SCH (09:57)
[2019-01-31] MEDS: hydroCHLOROthiazide 25 MG TAB PO SCH (09:57)
[2019-01-31] MEDS: FUROSEMIDE 20 MG TAB PO SCH (09:57)
[2019-01-31] MEDS ORDERED: NS 1,000 ML IV SCH (13:35)
[2019-01-31] MEDS ORDERED: diphenhydrAMINE 25 MG CAP PO ONE (13:45)
[2019-01-31 14:00] VITALS: BP 156/87
--- NOTE | 2019-01-31 14:30 | IPNPDOC ---
Text Note Date of Service The patient was seen on 01/31/19. NOTE S: patient states increased dizziness, weakness, fatigue. No further N/V epi sode (occured yesterday posts shower). He denies any active bleeding. HE was to be d/c today but symptomatic with anemia. He has received his home wound vac and is currently using it. OT postponed therapy today because of symptomatic anemia. O: Vitals as below General: pleasant NAD AAOx3 HRRR LCTA Ext: left forearm with wound vac in place, no active bleeding A/P: 1. Left forearm abscess (secondary to IVDA) growing Streptococcus and Prevotella on IV Unasyn. ID & surgery consulted. U/S of the Ext notable for 3.8 x 2.7 x 6 cm abscess on admission s/p drainage by IR on 01/12 Repeat U/S of the LUE notable for repeat Abscess on 01/14 MRI with large 11cm abcess on 01/19/19 Blood cultures negative. ; Wound culture notable for streptococcus and prevotella - on unasyn s/p Surgical Intervention I&D with Dr. Cardenasuga 01/14/19 s/p bedside I&D abscess by Dr Pike (01/19/19 and 01/22/19) No signs of compartment syndrome; Consult dr Calderon (ortho) - no further interventions/signed off on case Consult with Dr Recinos (ID). - Changed from Unasyn to Augmentin to finish a total of 3-week course, currently day 13 out of 21. Will be discharged home with home health, wound vac M,W,F. 2. Left forearm tenosynovitis - PT/OT consulted. continue current treatment plan ; awaiting OT clearance for discharge 3. Pain control - pain medications and psych meds adjusted to avoid oversedation. Currently on oxycontin 30mg BID with prn percocet breakthru and is being referred to [facility] as outpatient. 4. History of IV drug abuse - (crack cocaine/omero) - interested in rehab - and is being referred to [facility] as outpatient. 5. Diabetes mellitus - poor control with blood sugars. no hypoglycemia. improved control with current regimen 6. Chronic kidney disease stage III probably secondary to essential HTN and DM - RESOLVED 7. Peripheral neuropathy due to DM; Continue gabapentin for renally adjusted dose 8. Essential Hypertension - continue Coreg,prazosin,clonidine TID 9 Anxiety/depression - stable with early med adjustments 10. anemia - chronic disease - transfuse 2 unit pRBC today. Disposition - possible d/c home tomorrow with services if cleared by OT. [place] SUBRAMANIAN, I+O VSObinna, I+O Laboratory Tests 01/31/19 06:34 Red Blood Count 2.84 L, Mean Corpuscular Volume 82.7, Mean Corpuscular Hemoglobin 27.5, Mean Corpuscular Hemoglobin Concent 33.2, Red Cell Distribution Width 15.3 H, Calcium Level 8.5, Aspartate Amino Transf (AST/SGOT) 28, Alanine Aminotransferase (ALT/SGPT) 24, Alkaline Phosphatase 73, Total Bilirubin 0.2, Total Protein 7.6, Albumin 1.5 L Vital Signs Date Time Temp Pulse Resp B/P (MAP) Pulse Ox O2 Delivery O2 Flow Rate FiO2 01/31/19 09:55 148/84 01/31/19 09:53 18 01/31/19 06:00 98.9 81 97 I&O- Last 24 Hours up to 6 AM 01/31/19 06:00 Intake Total 2405 ml Output Total 0 ml Balance 2405 ml SHAYY SILVEIRA DO Jan 31, 2019 13:39
[2019-01-31] MEDS ORDERED: INSUDET SC (14:45)
[2019-01-31] MEDS ORDERED: OXYC15TA66 PO (14:45)
[2019-01-31] MEDS ORDERED: GABA-845 PO (14:45)
[2019-01-31] MEDS ORDERED: CYMB1CAP5 PO (14:45)
[2019-01-31] MEDS ORDERED: AMLO10TA5 PO (14:45)
[2019-01-31] MEDS ORDERED: OXYCO5TA PO (14:45)
[2019-01-31] MEDS ORDERED: CLONI1TA PO (14:45)
[2019-01-31] MEDS ORDERED: TRAM37.53 PO (14:45)
[2019-01-31] MEDS ORDERED: QUET1TAB8 PO (14:45)
[2019-01-31] MEDS ORDERED: HYDR25TAB PO (14:45)
[2019-01-31] MEDS ORDERED: AMOX875T2 PO (14:45)
[2019-01-31] MEDS ORDERED: POTASSIUM CHLORIDE 10 MEQ SR TABLET PO ONE (15:00)
[2019-01-31 22:00] VITALS: BP 162/78
[2019-01-31] MEDS: PRAZOSIN 1 MG CAP PO SCH (22:33)
[2019-02-01 05:52] LABS: HEMATOCRIT 29.7 % (42.0-52.0); MEAN CORPUSCULAR HEMOGLOBIN 27.8 pg (27.0-33.0); MEAN CORPUSCULAR HGB CONC 33.3 g/dl (32.0-36.5); MEAN CORPUSCULAR VOLUME 83.4 fl (80.0-96.0); PLATELET COUNT, AUTOMATED 247 10^3/uL (150-450); RED BLOOD COUNT 3.56 10^6/uL (4.30-6.10); WHITE BLOOD COUNT 5.4 10^3/uL (4.0-10.0)
[2019-02-01 06:00] VITALS: BP 164/81
[2019-02-01 06:00] LABS: HEMOGLOBIN 9.9 g/dl (13.5-17.5)
[2019-02-01 06:14] LABS: CALCIUM LEVEL 8.6 MG/DL (8.5-10.1); CREATININE FOR GFR 2.1 MG/DL (0.70-1.30); GLOMERULAR FILTRATION RATE 43.5 (>60); POTASSIUM SERUM 3.8 MEQ/L (3.5-5.1)
[2019-02-01] MEDS: NICOTINE POLACRILEX 2 MG GUM PO PRN ×2 (06:19→09:20)
[2019-02-01] MEDS: GABAPENTIN 400 MG CAP PO SCH (06:19)
[2019-02-01] MEDS: ACETAMINOPHEN 650MG ER TAB (TYLENOL ARTHRITIS) PO SCH (06:19)
[2019-02-01] MEDS: oxyCODONE 5MG TAB PO PRN (06:20)
[2019-02-01] MEDS: oxyCODONE 15 MG CR TAB PO SCH (09:18)
[2019-02-01] MEDS: QUEtiapine FUMARATE 100 MG TAB PO SCH (09:18)
[2019-02-01 09:19] VITALS: BP 153/80
[2019-02-01] MEDS: MULTIVITAMINS/MINERALS THERAP 1 TAB PO SCH (09:19)
[2019-02-01] MEDS: DULoxetine 30 MG CAP (CYMBALTA) PO SCH (09:19)
[2019-02-01] MEDS: HEPARIN SOD (PORCINE) 5000 UNITS/ML VIAL SC SCH (09:19)
[2019-02-01] MEDS: hydroCHLOROthiazide 25 MG TAB PO SCH (09:19)
[2019-02-01] MEDS: FOLIC ACID 1 MG TAB PO SCH (09:19)
[2019-02-01] MEDS: CARVedilol 12.5 MG TAB PO SCH (09:19)
[2019-02-01] MEDS: THIAMINE 100 MG TAB PO SCH (09:19)
[2019-02-01] MEDS: amLODIPine 10 MG TAB PO SCH (09:19)
[2019-02-01] MEDS: cloNIDine 0.1 MG TAB PO SCH (09:20)
[2019-02-01] MEDS: DIVALPROEX 250 MG TAB PO SCH (09:20)
[2019-02-01] MEDS: HumaLOG INSULIN (NovoLOG) PER UNIT SC SCH ×2 (09:20→12:00)
[2019-02-01] MEDS: LACTOBACILLUS ACIDOPHILUS CAP (BACID) PO SCH (09:20)
[2019-02-01] MEDS: AUGMENTIN 875 MG TAB PO SCH (09:20)
[2019-02-01] MEDS: LEVEMIR (INSULIN DETEMIR) 1 UNITS/0.01ML SC SCH (09:21)
[2019-02-01] MEDS: ULTRACET TAB PO PRN (13:15)
--- NOTE | 2019-02-01 17:08 | DS.PDOC ---
Discharge Summary General Date of Admission Jan 10, 2019 at 22:23 Date of Discharge 02/01/19 Primary Care Physician: SHANTELL GALINDO NP Attending Physician: SHAYY SILVEIRA DO Specialist/Consultants Involve: Manny Pike Jr Specialist/Consultants Involve Dr Lieberman, Dr Calderon, Dr Doshi, Discharge Summary PROCEDURES PERFORMED DURING STAY: s/p drainage by IR on 01/12 s/p Surgical Intervention I&D with Dr. Doshi 01/14/19 s/p bedside I&D abscess by Dr Pike (01/19/19 and 01/22/19) Transfuse 2 unit pRBC on 01/31/19 ADMITTING DIAGNOSES: subcutaneous abscess DM htn bipolar DISCHARGE DIAGNOSES: 1. Left forearm abscess (secondary to IVDA) growing Streptococcus and Prevotell a 2. Left forearm tenosynovitis 3. History of IV drug abuse - (crack cocaine/omero) 4. anemia - chronic disease 5. Diabetes mellitus - on supervisor intermediates insulin with hyperglycemia, no hypoglyemia 6. BELLE with Chronic kidney disease stage III probably secondary to essential HTN and DM - 7. Peripheral neuropathy due to DM; 8. Essential Hypertension - 9 Anxiety/depression COMPLICATIONS/CHIEF COMPLAINT: Abscess, Diabetes. HISTORY OF PRESENT ILLNESS: 48m with hx of dm, bipolar, and polysubstance abuse. Pt presents with left forearm pain for the past 3 days. He reports he was injecting cocaine into his wrist just prior to the pain starting. He states he hasnt injected drugs in the past and feels he is not very good at it. He denies fevers, sweats, chills, sob, urinary or bowel symptoms. U/S of the Ext notable for 3.8 x 2.7 x 6 cm abscess . See H&P for details. HOSPITAL COURSE: Patient admitted and initially placed on insulin drip by ED but his BS and elevated acetone resolved and he was taken off IV insulin and placed on SC insulin in less than 6 hours. He was started on clindamycin IV and when cultures returned ( notable for streptococcus and prevotella), changed to IV Unasyn. Prior to discharge, he was changed to augmentin (day 13 of 21). There was no signs of compartment syndrome. He had multiple I&D and xrays (including MRI). Wound vac place and tolerated well. His pain was severe on admission and patient became oversedated requiring narcan at times during first 72 hours. Psychiatry medications and pain medications adjusted and no further narcan needed. Pain control was "tolerable" per patient. Patient states he was interested in rehab, however, while on opioid for arm pain (incision healing by secondary intent) he is not a candidate for inpatient rehab. At time of discharge , is being referred to [facility] as outpatient. As for his diabetes, his HgA1c was over 12 (see labs below) and insulin adjusted with good control of blood sugars 24 hours prior to discharge. His renal function re mained elevated but stable and will need closer monitoring and possible outpatient nephrology appointment if he remains compliant with antihypertensive, diabetic and antibiotic regimen. DISCHARGE MEDICATIONS: Please see below. ALLERGIES: Please see below. PHYSICAL EXAMINATION ON DISCHARGE: VITAL SIGNS: Please see below. General: pleasant NAD AAOx3 HRRR LCTA Ext: left forearm with wound vac in place, no active bleeding LABORATORY DATA: Please see below. IMAGING: Repeat U/S of the LUE notable for repeat Abscess on 01/14 MRI with large 11cm abcess on 01/19/19 PROGNOSIS: fair depending on compliance ACTIVITY: as tolerated DIET: as tolerated DISCHARGE PLAN: discharge home with services DISPOSITION: home with services DISCHARGE INSTRUCTIONS: follow up [address] Lieberman and Dr Pike for wound recheck follow up Shantell Galindo NP (PCP) 02/09/19 as scheduled Wound vac changes M,W,F (if wound vac becomes inoperable, then wet to dry dressing changes daily) DISCHARGE CONDITION: stable TIME SPENT ON DISCHARGE: 40 minutes. Vital Signs/I&Os Vital Signs Date Time Temp Pulse Resp B/P (MAP) Pulse Ox O2 Delivery O2 Flow Rate FiO2 02/01/19 06:20 18 02/01/19 06:00 98.2 76 164/81 (108) 97 I&O- Last 24 Hours up to 6 AM 02/01/19 06:00 Intake Total 2422 ml Output Total 0 ml Balance 2422 ml Laboratory Data Labs 24H Item Value Date Time C-Reactive Protein, Quantitative 1.63 MG/DL H 01/31/19 0634 C-Reactive Protein, Quantitative 2.47 MG/DL H 01/23/19 0528 C-Reactive Protein, Quantitative 11.20 MG/DL H 01/17/19 0526 C-Reactive Protein, Quantitative 18.10 MG/DL H 01/13/19 0526 C-Reactive Protein, Quantitative 22.10 MG/DL H 01/15/19 0530 Blood Urea Nitrogen 14 MG/DL 01/11/19 0049 Creatinine 1.36 MG/DL H 01/11/19 0049 Calcium Level 7.9 MG/DL L 01/11/19 0049 C-Reactive Protein, Quantitative 4.74 MG/DL H 01/22/19 0518 Blood Urea Nitrogen 15 MG/DL 01/20/19 0638 Creatinine 1.27 MG/DL 01/20/19 0638 Hemoglobin A1c 14.2 % 01/10/192017 Bedside Glucose (Misc Panel) 98 MG/DL 02/01/19 113 Bedside Glucose (Misc Panel) 137 MG/DL H 01/31/192057 Creatinine 2.10 MG/DL H 02/01/19 0515 Blood Urea Nitrogen 13 MG/DL 02/01/19 0515 Sodium Level 137 MEQ/L 02/01/19 0515 Potassium Level 3.8 MEQ/L 02/01/19 0515 Calcium Level 8.6 MG/DL 02/01/19 0515 Fasting Glucose 173 MG/DL H 02/01/19 0515 Fasting Glucose 118 MG/DL H 01/31/19 0634 CBC/BMP Laboratory Tests 02/01/19 05:15 Red Blood Count 3.56 L, Mean Corpuscular Volume 83.4, Mean Corpuscular Hemoglobin 27.8, Mean Corpuscular Hemoglobin Concent 33.3, Red Cell Distribution Width 15.0 H, Calcium Level 8.6 FSBS Laboratory Tests Test 01/31/19 11:36 01/31/19 16:28 01/31/19 20:58 Range/Units Bedside Glucose (Misc Panel) 198 189 137 70-105 MG/DL Microbiology Microbiology 01/23/19 Blood Culture - Final, Complete NO GROWTH AFTER 5 DAYS Discharge Medications Scheduled Acetaminophen (Tylenol Arthritis) 650 Mg Tablet.er, 650 MG PO Q8H, (Reported) Amlodipine Besylate (Amlodipine Besylate) 10 Mg Tablet, 10 MG PO DAILY Amoxicillin/Potassium Clav (Amox-Clav 875-125 mg Tablet) 1 Each Tablet, 875 MG PO BID Carvedilol (Carvedilol) 12.5 Mg Tablet, 25 MG PO BID, (Reported) Clonidine Hcl (Clonidine HCl) 0.1 Mg Tablet, 0.1 MG PO TID Divalproex Sodium (Divalproex Sodium) 250 Mg Tablet.dr, 750 MG PO BID, (Reported) Duloxetine Hcl (Cymbalta) 30 Mg Capsule.dr, 90 MG PO DAILY Folic Acid (Folic Acid) 1 Mg Tablet, 1 MG PO DAILY, (Reported) Gabapentin (Gabapentin) 400 Mg Capsule, 400 MG PO Q8H Hydrochlorothiazide (Hydrochlorothiazide) 25 Mg Tablet, 25 MG PO DAILY Insulin Detemir (Levemir) 100 Unit/1 Ml Vial, 30 UNITS SC BID Insulin Human Lispro (Humalog) 100 Unit/1 Ml Vial, 1 DOSE SC ACHS, (Reported) PER SLIDING SCALE Magnesium Oxide (Magnesium Oxide) 400 Mg Tablet, 400 MG PO DAILY, (Reported) Multivitamins (Thera M Plus Tablet) 1 Each Tablet, 1 TAB PO DAILY, (Reported) Oxycodone HCl (Oxycontin) 15 Mg Tab.er.12h, 30 MG PO BID Paliperidone Palmitate (Invega Sustenna) 234 Mg/1.5 Ml Syringe, 234 MG IM QMONTH, (Reported) Potassium Chloride (Potassium Chloride) 10 Meq Tablet.er, 20 MEQ PO DAILY, (Reported) Prazosin Hcl (Prazosin HCl) 1 Mg Capsule, 4 MG PO QHS, (Reported) Quetiapine Fumarate (Quetiapine Fumarate) 100 Mg Tablet, 100 MG PO DAILY, (Reported) Quetiapine Fumarate (Quetiapine Fumarate) 100 Mg Tablet, 300 MG PO QHS Thiamine HCl (Thiamine HCl) 100 Mg Tablet, 100 MG PO DAILY, (Reported) Scheduled PRN Hydroxyzine HCl (Hydroxyzine HCl) 50 Mg Tablet, 50 MG PO Q6H PRN for ANXIETY/AGITATION, (Reported) Nicotine Polacrilex (Nicotine Gum) 4 Mg Gum, 4 MG MT Q2H PRN for SMOKING IRA SATION, (Reported) Oxycodone HCl (Oxycodone HCl) 5 Mg Tablet, 5 MG PO Q4HP PRN for PAIN Tramadol HCl/Acetaminophen (Tramadol-Acetaminophn 37.5-325) 1 Each Tablet, 1 TAB PO Q4HP PRN for BACK PAIN Trazodone HCl (Trazodone HCl) 50 Mg Tablet, 50 MG PO QHS PRN for INSOMNIA, (Reported) Allergies Coded Allergies: No Known Allergies (Unverified , 10/19/18) SHAYY SILVEIRA DO Feb 01, 2019 07:43
== END 2019-02-01 14:05 | disposition home or self-care (01) | DRG 580 ==
LOC: M ED 15:49 → M ED INP 22:23 → M MSPAV 01-11 13:51 → M ICU 01-23 07:36 → M MSPAV 01-23 08:57
PROVIDERS: ADMIT Hospitalist; ATTEND Family Medicine
PROC: 0K980ZZ Drainage of Left Upper Arm Muscle, Open Approach (ICD-10-PCS; principal; 2019-01-14 15:00)
DX: L02.414 Cutaneous abscess of left upper limb (principal); N17.9 Acute kidney failure, unspecified; F14.10 Cocaine abuse, uncomplicated; E11.65 Type 2 diabetes mellitus with hyperglycemia; I12.9 Hypertensive chronic kidney disease with stage 1 through stage 4 chronic kidney disease, or unspecified chronic kidney disease; N18.3 Chronic kidney disease, stage 3 (moderate); Z79.4 Long term (current) use of insulin; F41.9 Anxiety disorder, unspecified; F32.9 Major depressive disorder, single episode, unspecified; E11.51 Type 2 diabetes mellitus with diabetic peripheral angiopathy without gangrene; M65.132 Other infective (teno)synovitis, left wrist; Z79.899 Other long term (current) drug therapy; B95.5 Unspecified streptococcus as the cause of diseases classified elsewhere

== ENCOUNTER 2019-02-04 21:13 | Inpatient (IN) | payer MEDICARE ==
[~2019-02-04] VITALS: Ht 175.3 cm; Wt 88.2 kg
[~2019-02-04 21:13] MED LIST changes: +AMLO10TA5 PO; +AMOX875T2 PO; +CLONI1TA PO; +CYMB1CAP5 PO; +FURO20TA2 PO; +GABA-845 PO; +HYDR50TA70 PO; +MAGN400T2 PO; +NICO4GUM47 MT; +OXYC15TA66 PO; +OXYCO5TA PO; +POTA10TA14 PO; +THIA100T7 PO; +TRAM37.53 PO; +TRAZ1TAB10 PO; +TYLE650T35 PO
[2019-02-04] MEDS ORDERED: NS 1,000 ML IV ONE (21:30)
[2019-02-04 21:49] LABS: BASO % 0.8 % (0.0-1.0); EOS % 0.4 % (0.0-3.0); HEMATOCRIT 30.9 % (42.0-52.0); HEMOGLOBIN 10.6 g/dl (13.5-17.5); LYMPH # 2.6 10^3/uL (1.5-5.0); MEAN CORPUSCULAR HEMOGLOBIN 27.4 pg (27.0-33.0); MEAN CORPUSCULAR HGB CONC 34.3 g/dl (32.0-36.5); MEAN CORPUSCULAR VOLUME 79.8 fl (80.0-96.0); MONO # 0.9 10^3/uL (0.0-0.8); MONO % 17.7 % (0.0-5.0); NEUTROPHILS # 1.4 10^3/uL (1.5-8.5); NEUTROPHILS % 28.1 % (36.0-66.0); PLATELET COUNT, AUTOMATED 215 10^3/uL (150-450); RED BLOOD COUNT 3.87 10^6/uL (4.30-6.10); WHITE BLOOD COUNT 4.9 10^3/uL (4.0-10.0)
[2019-02-04 21:50] LABS: VENOUS BASE EXCESS -1.8 (-2.0-2.0); VENOUS HCO3 22.7 MEQ/L (23.0-27.0); VENOUS O2 SATURATION 95.5 % (60.0-80.0); VENOUS PARTIAL PRESSURE CO2 37.9 mmHg (38.0-50.0); VENOUS PARTIAL PRESSURE O2 78.4 mmHg (30.0-50.0); VENOUS PH 7.396 UNITS (7.330-7.430); VENOUS STANDARD HCO3 22.9 MEQ/L; VENOUS TOTAL CO2 23.9 MEQ/L (24.0-28.0)
[2019-02-04 22:10] LABS: HEMOGLOBIN A1c 10.5 %; OSMOLALITY SERUM 318 MOSM/KG (275-295)
[2019-02-04 22:17] LABS: ACETONE/KETONE 4.84 MG/DL (<2.81); ALT/SGPT 62 U/L (12-78); BILIRUBIN,DIRECT 0.1 MG/DL (0.0-0.2); BILIRUBIN,TOTAL 0.3 MG/DL (0.2-1.0); BLOOD UREA NITROGEN 18 MG/DL (7-18); CARBON DIOXIDE LEVEL 24 MEQ/L (21-32); CHLORIDE LEVEL 95 MEQ/L (98-107); CK-MB VALUE MASS 2.4 NG/ML (<3.6); CPK CREATINE PHOSPHOKINASE 175 U/L (39-308); CREATININE FOR GFR 1.83 MG/DL (0.70-1.30); ETHYL ALCOHOL (ETHANOL) 0.107 % (0.000-0.010); GLUCOSE, FASTING 277 MG/DL (70-100); MB/CK RELATIVE INDEX 1.37 (< OR =4); POTASSIUM SERUM 3.2 MEQ/L (3.5-5.1); SODIUM LEVEL 131 MEQ/L (136-145); TOTAL PROTEIN 8.7 GM/DL (6.4-8.2); TROPONIN I < 0.02 NG/ML (< 0.10)
[2019-02-04] MEDS ORDERED: AUGMENTIN 875 MG TAB PO ONE (23:45)
[2019-02-04] MEDS ORDERED: LEVEMIR (INSULIN DETEMIR) 1 UNITS/0.01ML SC ONE (23:45)
[2019-02-04] MEDS ORDERED: POTASSIUM CHLORIDE 10 MEQ SR TABLET PO ONE (23:45)
[2019-02-05] MEDS ORDERED: cloNIDine 0.1 MG TAB PO ONE
[2019-02-05 00:08] LABS: SALICYLATE LEVEL < 1.7 MG/DL (5.0-30.0)
[2019-02-05 00:09] LABS: ACETAMINOPHEN LEVEL < 2.0 UG/ML (10.0-30.0)
[2019-02-05 01:04] LABS: AMPHETAMINES LEVEL URINE POSITIVE (NEGATIVE); BARBITURATES URINE NEGATIVE (NEGATIVE); BENZODIAZEPINES URINE NEGATIVE (NEGATIVE); CANNABINOIDS URINE NEGATIVE (NEGATIVE); COCAINE METABOLITE URINE NEGATIVE (NEGATIVE); METHADONE URINE NEGATIVE (NEGATIVE); OPIATES URINE NEGATIVE (NEGATIVE); PHENCYCLIDINE URINE NEGATIVE (NEGATIVE)
[2019-02-05] MEDS ORDERED: ACETAMINOPHEN 325 MG TAB As Ordered ONE (01:24)
[2019-02-05] MEDS ORDERED: ACETAMINOPHEN 325 MG TAB PO ONE (02:00)
--- NOTE | 2019-02-05 06:40 | ECGEPIP ---
[facility] - ED Test Date: 2019-02-04 Pat Name: JOSEPH NEWTON Department: Room: - Gender: Male Net Application Support Specialist: SAM : [id number] Requested By: JODY Saldivar Order Number: [id number] Reading MD: Maria Elena Treviño Measurements Intervals [place] Rate: 93 P: 65 MT: 157 QRS: 41 QRSD: 90 T: 60 QT: 391 QTc: 487 Interpretive Statements SINUS RHYTHM POSSIBLE LEFT ATRIAL ENLARGEMENT NONSPECIFIC ST T WAVE CHANGES DELAYED R WAVE PROGRESSION PROLONGED QTC CW 12/21/[address] T WAVE CHANGES QTC NOW PROLONGED Electronically Signed on 02-05-2019 6:39:56 EDT by Maria Elena Treviño
[2019-02-05] MEDS ORDERED: AUGMENTIN 875 MG TAB PO ONE (07:30)
[2019-02-05] MEDS ORDERED: GABAPENTIN 400 MG CAP PO ONE (07:30)
[2019-02-05] MEDS ORDERED: hydroCHLOROthiazide 25 MG TAB PO ONE (07:30)
[2019-02-05] MEDS ORDERED: amLODIPine 10 MG TAB PO ONE (07:30)
[2019-02-05] MEDS ORDERED: oxyCODONE 10 MG CR TAB PO ONE (07:45)
[2019-02-05] MEDS ORDERED: oxyCODONE 5MG TAB PO ONE (07:45)
[2019-02-05] MEDS ORDERED: oxyCODONE 15 MG CR TAB PO ONE (07:45)
[2019-02-05] MEDS ORDERED: NICOTINE POLACRILEX 2 MG GUM PO ONE (08:00)
[2019-02-05] MEDS ORDERED: HYDR25TAB PO (08:07)
[2019-02-05] MEDS ORDERED: TRAM37.53 PO (08:07)
[2019-02-05] MEDS ORDERED: SERO1TAB2 PO (08:07)
[2019-02-05] MEDS ORDERED: AMLO10TA5 PO (08:07)
[2019-02-05] MEDS ORDERED: OXYC-517 PO (08:07)
[2019-02-05] MEDS ORDERED: DULO30CA9 PO (08:07)
[2019-02-05] MEDS ORDERED: GABA-845 PO (08:07)
[2019-02-05] MEDS ORDERED: OXYC15TA66 PO (08:07)
[2019-02-05] MEDS ORDERED: INSUDET SC (08:07)
[2019-02-05] MEDS ORDERED: AUGM875T28 PO (08:07)
[2019-02-05] MEDS ORDERED: CLON-412 PO (08:07)
--- NOTE | 2019-02-05 09:17 | REP ---
Clinical: Diabetic ketoacidosis . Comparison: None . Findings: The mediastinum and cardiac silhouette are stable and within normal limits for portable technique. The lung solis are clear without acute consolidation, effusion, or pneumothorax. Skeletal structures are intact. Impression: No acute cardiopulmonary process appreciated. Electronically Signed by Deon Colin MD 02/05/2019 09:09 A
[2019-02-05] MEDS ORDERED: MULTIVITAMINS/MINERALS THERAP 1 TAB PO ONE (09:30)
[2019-02-05] MEDS ORDERED: MAGNESIUM OXIDE 400 MG TAB (MAG-OX) PO ONE (09:30)
[2019-02-05] MEDS ORDERED: CARVedilol 12.5 MG TAB PO ONE (09:30)
[2019-02-05] MEDS ORDERED: DULoxetine 30 MG CAP (CYMBALTA) PO ONE (09:30)
[2019-02-05] MEDS ORDERED: THIAMINE 100 MG TAB PO ONE (09:30)
[2019-02-05] MEDS ORDERED: POTASSIUM CHLORIDE 10 MEQ SR TABLET PO ONE ×2 (09:30→13:30)
[2019-02-05] MEDS ORDERED: DIVALPROEX 250 MG TAB PO ONE (09:30)
[2019-02-05] MEDS: NICOTINE POLACRILEX 2 MG GUM PO PRN ×3 (12:48→20:57)
[2019-02-05] MEDS: oxyCODONE 5MG TAB PO PRN ×2 (13:37→19:41)
[2019-02-05] MEDS: GABAPENTIN 400 MG CAP PO SCH ×2 (17:29→20:59)
[2019-02-05] MEDS: cloNIDine 0.1 MG TAB PO SCH ×2 (17:29→20:58)
[2019-02-05] MEDS: DIVALPROEX 250 MG TAB PO SCH (20:57)
[2019-02-05] MEDS: oxyCODONE 10 MG CR TAB PO SCH (20:57)
[2019-02-05] MEDS: AUGMENTIN 875 MG TAB PO SCH (20:58)
[2019-02-05] MEDS: CARVedilol 12.5 MG TAB PO SCH (20:59)
[2019-02-05] MEDS ORDERED: QUEtiapine FUMARATE 100 MG TAB PO SCH (21:00)
[2019-02-05] MEDS ORDERED: PRAZOSIN 1 MG CAP PO SCH (21:00)
[2019-02-06] MEDS: CARVedilol 12.5 MG TAB PO SCH ×2 (08:44→22:00)
[2019-02-06] MEDS: cloNIDine 0.1 MG TAB PO SCH ×2 (08:44→21:59)
[2019-02-06] MEDS: AUGMENTIN 875 MG TAB PO SCH ×2 (08:44→22:01)
[2019-02-06] MEDS: DIVALPROEX 250 MG TAB PO SCH ×2 (08:45→21:59)
[2019-02-06] MEDS: GABAPENTIN 400 MG CAP PO SCH ×2 (08:46→21:59)
[2019-02-06] MEDS: oxyCODONE 10 MG CR TAB PO SCH (08:46)
[2019-02-06] MEDS ORDERED: POTASSIUM CHLORIDE 10 MEQ SR TABLET PO SCH (09:00)
[2019-02-06] MEDS ORDERED: MAGNESIUM OXIDE 400 MG TAB (MAG-OX) PO SCH (09:00)
[2019-02-06] MEDS ORDERED: MULTIVITAMINS/MINERALS THERAP 1 TAB PO SCH (09:00)
[2019-02-06] MEDS ORDERED: hydroCHLOROthiazide 25 MG TAB PO SCH (09:00)
[2019-02-06] MEDS ORDERED: amLODIPine 10 MG TAB PO SCH (09:00)
[2019-02-06] MEDS ORDERED: QUEtiapine FUMARATE 100 MG TAB PO SCH (09:00)
[2019-02-06] MEDS ORDERED: THIAMINE 100 MG TAB PO SCH (09:00)
[2019-02-06] MEDS ORDERED: DULoxetine 30 MG CAP (CYMBALTA) PO SCH (09:00)
[2019-02-06] MEDS: NICOTINE POLACRILEX 2 MG GUM PO PRN ×2 (14:34→22:01)
[2019-02-06] MEDS ORDERED: MAALOX 30 ML SUSP *UDC PO PRN (15:00)
[2019-02-06] MEDS ORDERED: ACETAMINOPHEN TAB 650MG DOSE (2X325MG) PO PRN (15:00)
[2019-02-06] MEDS ORDERED: traZODone 50 MG TAB PO PRN ×2 (15:00→18:30)
[2019-02-06] MEDS ORDERED: MOM 30ML SUSPENSION UDC PO PRN (15:00)
[2019-02-06] MEDS ORDERED: GLUCOSE 4 GM CHEW TABLET PO PRN (15:15)
[2019-02-06] MEDS: oxyCODONE 5MG TAB PO PRN (15:15)
[2019-02-06] MEDS ORDERED: DEXTROSE 50% 50 ML SYRINGE IV PRN (15:15)
[2019-02-06] MEDS ORDERED: GLUCAGON FOR INJ 1 MG VIAL (J1610) SC PRN (15:15)
[2019-02-06 16:43] VITALS: BP 176/93
[2019-02-06] MEDS: HumaLOG INSULIN (NovoLOG) PER UNIT SC SCH ×2 (17:24→21:00)
--- NOTE | 2019-02-06 20:39 | HPEPDOC ---
General Date of Admission Feb 06, 2019 at 14:50 Date of Service: Feb 06, 2019 Chief Complaint The patient is a 48-year-old male admitted with a reason for visit of Unspecified Do. Source: Patient, Old records Exam Limitations: Other (patient is agitated) Timing/Duration: Unsure Severity: Mild Associated Symptoms: Increased agitation History of Present Illness History is difficult to obtain from this patient. He is quite agitated and is unable to give basics of his history. I am partly familiar with this patient from his recent hospital stay but was not present when he was discharged. I have had to review medical records for information. This is a 48-year-old male who had a very large abscess to his left forearm. He required extensive incision and drainage and subsequent management by wound VAC. He apparently was discharged to home with a wound VAC and states he has misplaced the global project manager. He was discharged to home on oral antibiotics, I believe in the form of Augmentin. Prior cultures from his wound site or sedative been positive for Streptococcus intermedius. It is unclear why the patient has re-presented to the emergency room and ended up in [facility]. Patient does have some uncontrolled hypertension from not taking his medications. He is also complaining of remarkable pain to his wound site. Home Medications Scheduled Acetaminophen (Tylenol Arthritis) 650 Mg Tablet.er, 650 MG PO Q8H, (Reported) Amlodipine Besylate (Amlodipine Besylate) 10 Mg Tablet, 10 MG PO DAILY, (Report ed) Amoxicillin/Potassium Clav (Augmentin 875-125 Tablet) 1 Each Tablet, 875 MG PO BID, (Reported) FILLED 02/01/19 FOR 8 DAYS Carvedilol (Carvedilol) 12.5 Mg Tablet, 25 MG PO BID, (Reported) Clonidine HCl (Clonidine HCl) 0.1 Mg Tablet, 0.1 MG PO TID, (Reported) Divalproex Sodium (Divalproex Sodium) 250 Mg Tablet.dr, 750 MG PO BID, (Reported) Duloxetine Hcl (Duloxetine HCl) 30 Mg Capsule.dr, 90 MG PO DAILY, (Reported) Gabapentin (Gabapentin) 400 Mg Capsule, 400 MG PO TID, (Reported) Hydrochlorothiazide (Hydrochlorothiazide) 25 Mg Tablet, 25 MG PO DAILY, (Reported) Insulin Detemir (Levemir) 100 Unit/1 Ml Vial, 30 UNITS SC BID, (Reported) Insulin Human Lispro (Humalog) 100 Unit/1 Ml Vial, 1 DOSE SC ACHS, (Reported) PER SLIDING SCALE Magnesium Oxide (Magnesium Oxide) 400 Mg Tablet, 400 MG PO DAILY, (Reported) Multivitamins (Thera M Plus Tablet) 1 Each Tablet, 1 TAB PO DAILY, (Reported) Oxycodone HCl (Oxycontin) 15 Mg Tab.er.12h, 30 MG PO BID, (Reported) Paliperidone Palmitate (Invega Sustenna) 234 Mg/1.5 Ml Syringe, 234 MG IM QMONTH, (Reported) Potassium Chloride (Potassium Chloride) 10 Meq Tablet.er, 20 MEQ PO DAILY, (Reported) Prazosin Hcl (Prazosin HCl) 1 Mg Capsule, 4 MG PO QHS, (Reported) Quetiapine Fumarate (Quetiapine Fumarate) 100 Mg Tablet, 100 MG PO DAILY, (Reported) Quetiapine Fumarate (Seroquel) 300 Mg Tablet, 300 MG PO QHS, (Reported) Thiamine HCl (Thiamine HCl) 100 Mg Tablet, 100 MG PO DAILY, (Reported) Scheduled PRN Nicotine Polacrilex (Nicotine Gum) 4 Mg Gum, 4 MG MT Q2H PRN for SMOKING CESSATION, (Reported) Oxycodone HCl (Oxycodone HCl) 5 Mg Tablet, 5 MG PO QID PRN for PAIN, (Reported) Tramadol HCl/Acetaminophen (Tramadol-Acetaminophn 37.5-325) 1 Each Tablet, 1 TAB PO Q4H PRN for PAIN, (Reported) Trazodone HCl (Trazodone HCl) 50 Mg Tablet, 50 MG PO QHS PRN for INSOMNIA, (Reported) Allergies Coded Allergies: No Known Allergies (Unverified , 10/19/18) Past Medical History Medical History Some past medical history that I am able to obtain includes lga-qyphnho-ofroiowak diabetes mellitus, chronic kidney disease stage III, essential hypertension, history of substance abuse generally in the form of coca ine and Carmenza, the recent mentioned large abscess to his left forearm. Surgical History The patient has undergone extensive incision and drainage to his left forearm of his abscess, which was quite deep. I am unable to elicit other surgical history from this patient at this time Family History I am unable to elicit any accurate information regarding family history from this patient at this time Social History * Smoker: current smoker Alcohol: Denies Drugs: cocaine, other (Carmenza; otherwise denies drug use of substances such as heroin or other opiate) Recent Travel/Sick Contacts: Denies: Recent travel, Recent sick contacts Psychosocial History: Bipolar The patient's overall social history is unknown to this contract technical writer at this time. For example, he is quite vague about where he lives. A-FIB/CHADSVASC A-FIB History Current/History of A-Fib/PAF?: No Current PO Anticoag Therapy: No Review of Systems Other systems Attempted review of 10 systems with this patient and unable to elicit full info rmation. Physical Examination General Exam: Positive: Moderate Distress Eye Exam: Positive: PERRLA, Conjunctiva & lids normal ENT Exam: Positive: Atraumatic, Mucous membr. moist/pink, Nares Patent Neck Exam: Positive: Supple Chest Exam: Positive: Clear to auscultation Heart Exam: Positive: Rate Normal Abdomen Exam: Positive: Normal bowel sounds, Soft Extremity Exam: Positive: Other (directed attention to his left upper extremity shows it to be remarkably intact. The site is healing well. He has almost no swelling, there is no active drainage) Skin Exam: Positive: Nl turgor and temperature, Other skin issue (the patient has multiple tattoos) Neuro Exam: Positive: Normal Speech, Cranial Nerves 3-12 NL Psych Exam: Positive: Anxiety, Other (pressured speech) Vital Signs Vital Signs Date Time Temp Pulse Resp B/P (MAP) Pulse Ox O2 Delivery O2 Flow Rate FiO2 02/06/19 16:43 97.6 69 18 176/93 (120) 99 02/06/19 16:15 Room Air Laboratory Data Labs 24H Laboratory Tests 2 02/06/19 17:15: Bedside Glucose (Misc Panel) 297H 02/06/19 19:51: Bedside Glucose (Misc Panel) 98 Microbiology Microbiology 02/04/19 Blood Culture - Preliminary, Resulted No growth after 24 hours . All specim... 02/04/19 Blood Culture - Preliminary, Resulted No growth after 24 hours . All specim... Assessment/Plan 1. Essential hypertension. The patient has known essential hypertension. He is on a fairly extensive regimen inclusive of 5 medications--Norvasc, Coreg, clonidine, hydrochlorothiazide and prazosin. Apparently, he has received none of these in the emergency room by his report. Systolic blood pressure has been up to 179. He is asymptomatic. Plans are to restore his blood pressure medication management regimen. Patient can experience rebound from not taking his clonidine. 2. Left arm wound. This is doing remarkably well. Plans had been for him to go home with the wound VAC device. It is unclear what with wrong. He is also stating he doesn't want to stay at "that" home anymore, but we're not sure what he means by that. We will continue with wet-to-dry dressings as directed. 3. Pain control. Patient had been seen by the pain management team while he was in the hospital. Their recommendations of controlled release OxyContin with immediate release oxycodone for breakthrough appear to work for him well. There had been planned to gradually reduce his dosages. As he has been off of it entirely, this may have triggered some withdrawal contributory to his hypertension. Pain Management will be restored. 4. Bipolar disorder. The patient appears to have other unspecified psych disorders. We will defer man agement of his psychotropic medications to the primary psychiatric team. The patient also also normally on Invega Sustenna; we will defer management of this medication to the primary psychiatric team as well. 5. Cvw-sdyxtqp-buqirpxsx diabetes mellitus. We have restored the patient's glucose control regimen where possible, which includes basal bolus insulin. Unfortunately, patient has been historically noncompliant. Plan / VTE VTE Prophylaxis Ordered?: No VTE Exclusion Mechanical Proph: Other (the patient is fully ambulatory) Plan Diet: Continue Current Activity: Continue Current Medications: Other Med: (resume blood pressure medication) Anticipated Discharge: Home (patient may not have any other option at discharge) ARIAN DOTSON MD Feb 06, 2019 20:39
[2019-02-06] MEDS ORDERED: LEVEMIR (INSULIN DETEMIR) 1 UNITS/0.01ML SC SCH ×2 (21:00)
[2019-02-06] MEDS: LEVEMIR (INSULIN DETEMIR) 1 UNITS/0.01ML SC SCH (21:00)
[2019-02-06] MEDS: QUEtiapine FUMARATE 100 MG TAB PO SCH (21:58)
[2019-02-06] MEDS: ACETAMINOPHEN 650MG ER TAB (TYLENOL ARTHRITIS) PO SCH (21:58)
[2019-02-06] MEDS: PRAZOSIN 1 MG CAP PO SCH (22:00)
[2019-02-06] MEDS: oxyCODONE 15 MG CR TAB PO SCH (23:16)
[2019-02-07] MEDS: NICOTINE POLACRILEX 2 MG GUM PO PRN ×5 (00:39→22:20)
[2019-02-07] MEDS: ACETAMINOPHEN 650MG ER TAB (TYLENOL ARTHRITIS) PO SCH ×3 (06:19→22:19)
[2019-02-07 07:06] VITALS: BP 160/70
[2019-02-07] MEDS: LEVEMIR (INSULIN DETEMIR) 1 UNITS/0.01ML SC SCH ×2 (09:00→21:00)
[2019-02-07] MEDS: HumaLOG INSULIN (NovoLOG) PER UNIT SC SCH ×4 (09:01→21:00)
[2019-02-07] MEDS: GABAPENTIN 400 MG CAP PO SCH ×3 (09:02→21:53)
[2019-02-07] MEDS: DULoxetine 30 MG CAP (CYMBALTA) PO SCH (09:02)
[2019-02-07] MEDS: DIVALPROEX 250 MG TAB PO SCH ×2 (09:02→21:54)
[2019-02-07] MEDS: POTASSIUM CHLORIDE 10 MEQ SR TABLET PO SCH (09:03)
[2019-02-07] MEDS: amLODIPine 10 MG TAB PO SCH (09:03)
[2019-02-07] MEDS: THIAMINE 100 MG TAB PO SCH (09:03)
[2019-02-07] MEDS: QUEtiapine FUMARATE 100 MG TAB PO SCH ×2 (09:03→21:53)
[2019-02-07] MEDS: hydroCHLOROthiazide 25 MG TAB PO SCH (09:04)
[2019-02-07] MEDS: AUGMENTIN 875 MG TAB PO SCH ×2 (09:04→21:53)
[2019-02-07] MEDS: cloNIDine 0.1 MG TAB PO SCH ×3 (09:04→22:15)
[2019-02-07] MEDS: MAGNESIUM OXIDE 400 MG TAB (MAG-OX) PO SCH (09:05)
[2019-02-07] MEDS: oxyCODONE 15 MG CR TAB PO SCH ×2 (09:06→22:18)
[2019-02-07] MEDS: CARVedilol 12.5 MG TAB PO SCH ×2 (09:06→22:16)
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
[2019-02-07] MEDS: oxyCODONE 5MG TAB PO PRN (16:27)
[2019-02-07 16:33] VITALS: BP 115/59
--- NOTE | 2019-02-07 18:16 | IPNPDOC ---
Text Note Date of Service The patient was seen on 02/07/19. NOTE Mr. Virk is seen in the [facility]. He is medically stable. He requires ongoing stabilization from a psychiatric standpoint. Cardiovascular: Regular rate and rhythm. Respiratory: Clear to auscultation, no cough or wheezing. Abdomen: Soft, nontender, nondistended. Extremities: Patient does not exhibit any peripheral edema or lesions, wound site to Left upper extremity remains stable Assessment/plan 1. Essential hypertension-patient has been restored to his usual medication regimen and his blood pressures are stable. 2. Qkm-tqxwhji-kehnaihyi diabetes mellitus--patient by report had been refusing some of his insulin dosages. He appears to be now be more cooperative and his blood sugars are stable on his current regimen. 3. Left upper extremity wound--patient has been restored to his prior pain management regimen as recommended by the pain management team. Wound care is to now consist of wet-to-dry dressings. Wound VAC can be restored in the event. He is discharged back to home and can locate the device and the retail store manager. 4. Tobacco dependency--patient has been restored to his usual nicotine gum usage and dosage. Patient's medical problems are stably managed. We will sign off for now but please do not hesitate to contact us if acute issues occur. VS,Fishbone, I+O VS, Fishbone, I+O Vital Signs Date Time Temp Pulse Resp B/P (MAP) Pulse Ox O2 Delivery O2 Flow Rate FiO2 02/07/19 17:25 17 02/07/19 16:33 97.8 58 115/59 (77) 02/06/19 16:43 99 02/06/19 16:15 Room Air ARIAN DOTSON MD Feb 07, 2019 18:16
[2019-02-07] MEDS: PRAZOSIN 1 MG CAP PO SCH (22:17)
[2019-02-08] MEDS: ACETAMINOPHEN 650MG ER TAB (TYLENOL ARTHRITIS) PO SCH ×3 (06:44→20:35)
[2019-02-08] MEDS: NICOTINE POLACRILEX 2 MG GUM PO PRN ×4 (06:45→20:59)
[2019-02-08 06:49] VITALS: BP 175/83
[2019-02-08] MEDS: HumaLOG INSULIN (NovoLOG) PER UNIT SC SCH ×4 (09:35→20:56)
[2019-02-08] MEDS: AUGMENTIN 875 MG TAB PO SCH ×2 (09:43→20:36)
[2019-02-08] MEDS: DULoxetine 30 MG CAP (CYMBALTA) PO SCH (09:44)
[2019-02-08] MEDS: hydroCHLOROthiazide 25 MG TAB PO SCH (09:44)
[2019-02-08] MEDS: THIAMINE 100 MG TAB PO SCH (09:44)
[2019-02-08] MEDS: POTASSIUM CHLORIDE 10 MEQ SR TABLET PO SCH (09:44)
[2019-02-08] MEDS: GABAPENTIN 400 MG CAP PO SCH ×3 (09:44→20:33)
[2019-02-08] MEDS: MAGNESIUM OXIDE 400 MG TAB (MAG-OX) PO SCH (09:44)
[2019-02-08] MEDS: DIVALPROEX 250 MG TAB PO SCH ×2 (09:44→20:35)
[2019-02-08] MEDS: QUEtiapine FUMARATE 100 MG TAB PO SCH ×2 (09:45→20:36)
[2019-02-08] MEDS: oxyCODONE 15 MG CR TAB PO SCH ×2 (09:51→20:34)
[2019-02-08] MEDS: amLODIPine 10 MG TAB PO SCH (09:51)
[2019-02-08] MEDS: CARVedilol 12.5 MG TAB PO SCH ×2 (09:52→20:49)
[2019-02-08] MEDS: cloNIDine 0.1 MG TAB PO SCH ×3 (09:52→20:50)
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
[2019-02-08] MEDS: LEVEMIR (INSULIN DETEMIR) 1 UNITS/0.01ML SC SCH ×2 (11:45→20:51)
[2019-02-08] MEDS: oxyCODONE 5MG TAB PO PRN (13:23)
[2019-02-08 17:30] VITALS: BP 141/80
[2019-02-08] MEDS: PRAZOSIN 1 MG CAP PO SCH (20:49)
[2019-02-09] MEDS: ACETAMINOPHEN 650MG ER TAB (TYLENOL ARTHRITIS) PO SCH ×3 (06:25→21:34)
[2019-02-09] MEDS: NICOTINE POLACRILEX 2 MG GUM PO PRN ×6 (06:33→21:35)
[2019-02-09 06:54] VITALS: BP 141/75
[2019-02-09] MEDS: HumaLOG INSULIN (NovoLOG) PER UNIT SC SCH ×4 (07:30→21:00)
[2019-02-09] MEDS: CARVedilol 12.5 MG TAB PO SCH ×2 (08:44→21:34)
[2019-02-09] MEDS: MAGNESIUM OXIDE 400 MG TAB (MAG-OX) PO SCH (08:44)
[2019-02-09] MEDS: DULoxetine 30 MG CAP (CYMBALTA) PO SCH (08:44)
[2019-02-09] MEDS: POTASSIUM CHLORIDE 10 MEQ SR TABLET PO SCH (08:44)
[2019-02-09] MEDS: GABAPENTIN 400 MG CAP PO SCH ×3 (08:45→21:33)
[2019-02-09] MEDS: DIVALPROEX 250 MG TAB PO SCH ×2 (08:45→21:33)
[2019-02-09] MEDS: oxyCODONE 15 MG CR TAB PO SCH ×2 (08:45→21:35)
[2019-02-09] MEDS: THIAMINE 100 MG TAB PO SCH (08:45)
[2019-02-09] MEDS: amLODIPine 10 MG TAB PO SCH (08:46)
[2019-02-09] MEDS: QUEtiapine FUMARATE 100 MG TAB PO SCH ×2 (08:46→21:33)
[2019-02-09] MEDS: cloNIDine 0.1 MG TAB PO SCH ×3 (08:46→21:33)
[2019-02-09] MEDS: AUGMENTIN 875 MG TAB PO SCH ×2 (08:46→21:34)
[2019-02-09] MEDS: hydroCHLOROthiazide 25 MG TAB PO SCH (08:47)
[2019-02-09] MEDS: LEVEMIR (INSULIN DETEMIR) 1 UNITS/0.01ML SC SCH ×2 (09:00→21:00)
--- NOTE | 2019-02-09 11:04 | MHIPNPDOC ---
[facility] Progress Note Progress Note Date of Service: 02/09/2019 History of Present Illness The patient, a 48-year-old man with a long psychiatric history, is admitted to our Inpatient service after reportedly being in our behavioral health unit over the weekend. He reportedly had presented with suicidal thoughts in the context of substance use, as well as reported auditory hallucinations. When I attempted to interview individual, he refused to talk to me, but was able to respond to cues suggesting volitional presentation. Review of the chart is primary for most of the patient's information and it appears that he has multiple substance problems and presents when he becomes depressed after utilizing various stimulants. He has not been taking care of his diabetes and hence become very brittle diabetic with a now open leg wound that is very poorly healing. He has a history of being demanding on inpatient units and generally focused on getting food. It appears that he has been unable to take care of himself with multiple admissions. Interval History The patient's met with today. He reports that he still feels suicidal, depressed, hopeless. He remains in his room the majority of the day sleeping, generally not able to attend to his needs. He reports continued chronic pain from his non-healing wound. He reports that he wishes to go to rehab bed to bed, as he feels that he's unable to care for himself due to his substance use and depression. He's able to sign releases with the treatment team today, however, when the treatment team returned, the patient was sleeping and did not want to be disturbed. He does demonstrate some irritability and difficulty with consistency and at times can be quite demanding by report. Nursing have noticed that he generally is isolative, doesn't engage and has difficulty following up on outpatient treatment plans. Review Of Systems Denies any side effects from his current psychiatric medications. No tremors, GI upset noted today. Psychotherapy None on this visit. Vital Signs Reviewed. Mental Status Examination General: Fair hygiene Speech: Fluid Thought processes: Linear and logical MSK: Smooth and coordinated gait, no signs of tremors or involuntary orofacial movements Thought content: Hopeless and pessimistic Abstract reasoning, and computation: Intact Description of associations: Intact Description of abnormal or psychotic thoughts: Admits to suicidal thoughts. Denies homicidal thoughts. Judgment: poor Insight: poor Orientation: Alert and orientated 3 Cognition: Grossly normal Recent and remote memory: Intact Attention span and concentration: Intact Fund of knowledge: Adequate Mood: "bad" Affect: Dysthymic with a constricted range Diagnoses Unspecified depressive disorder. Rule out substance induced versus malingering. Stimulant use disorder, severe. Alcohol use disorder, severe. Tobacco use disorder, severe. Unspecified trauma/stressor related disorder. Assessment and Plan Continue medications as below. We'll do rehab referral. Patient's complex medication regimen is unclear if helpful due to multiple metabolic comorbidities. The patient's engagement has always reportedly been tenuous, however, he's likely quite a risk for relapse and potential if discharged. Disposition Patient will need continued admission due to his high risk of suicide, depression as well as substance abuse at this time. Time Spent 10 minutes [id number] Tuesday Vital Signs Vital Signs Date Time Temp Pulse Resp B/P (MAP) Pulse Ox O2 Delivery O2 Flow Rate FiO2 02/09/19 08:46 73 02/09/19 08:45 18 02/09/19 08:44 150/90 02/09/19 06:54 98.0 02/06/19 16:43 99 02/06/19 16:15 Room Air Laboratory Data 24H Labs Laboratory Tests 2 02/08/19 11:40: Bedside Glucose (Misc Panel) 185H 02/08/19 16:28: Bedside Glucose (Misc Panel) 96 02/08/19 20:43: Bedside Glucose (Misc Panel) 159H 02/09/19 06:08: Bedside Glucose (Misc Panel) 70 02/09/19 08:39: Bedside Glucose (Misc Panel) 70 Current Medications Current Medications Medications (Trade) Dose Ordered Sig/Tee Route PRN Reason Start Time Stop Time Status Last Admin Dose Admin Acetaminophen (Tylenol Arthritis Er) 650 mg Q8H PO 02/06/19 22:00 02/09/19 06:25 Acetaminophen (Tylenol Tab) 650 mg Q6HP PRN PO HEADACHE or DISCOMFORT 02/06/19 15:00 Cancel Al Hydrox/Mg Hydrox/Simethicone (Mylanta) 30 ml Q4HP PRN PO HEARTBURN/INDIGESTION 02/06/19 15:00 Amlodipine Besylate (Norvasc) 10 mg DAILY PO 02/06/19 09:00 02/06/19 18:46 DC 02/06/19 08:44 Amlodipine Besylate (Norvasc) 10 mg DAILY PO 02/07/19 09:00 02/09/19 08:46 Amoxicillin/ Clavulanate Potassium (Augmentin) 875 mg BID PO 02/05/19 21:00 02/06/19 18:56 DC 02/06/19 08:44 Amoxicillin/ Clavulanate Potassium (Augmentin) 875 mg BID PO 02/06/19 21:00 02/09/19 08:46 Carvedilol (COReg) 25 mg BID PO 02/05/19 21:00 02/06/19 18:56 DC 02/06/19 08:44 Carvedilol (COReg) 25 mg BID PO 02/06/19 21:00 02/09/19 08:44 Clonidine HCl (Catapres) 0.1 mg TID PO 02/05/19 16:00 02/06/19 18:56 DC 02/06/19 08:44 Clonidine HCl (Catapres) 0.1 mg TID PO 02/06/19 21:00 02/09/19 08:46 Dextrose (Dextrose 50%) 25 ml ASDIRECTED PRN IV SEE LABEL COMMENTS 02/06/19 15:15 Divalproex Sodium (Depakote) 750 mg BID PO 02/05/19 21:00 02/06/19 18:56 DC 02/06/19 08:45 Divalproex Sodium (Depakote) 750 mg BID PO 02/06/19 21:00 02/09/19 08:45 Duloxetine HCl (Cymbalta) 90 mg DAILY PO 02/06/19 09:00 02/06/19 18:56 DC 02/06/19 08:46 Duloxetine HCl (Cymbalta) 90 mg DAILY PO 02/07/19 09:00 02/09/19 08:44 Gabapentin (Neurontin) 400 mg TID PO 02/05/19 16:00 02/06/19 18:56 DC 02/06/19 08:46 Gabapentin (Neurontin) 400 mg TID PO 02/06/19 21:00 02/09/19 08:45 Glucagon (Glucagon) 1 mg ASDIRECTED PRN SC SEE LABEL COMMENTS 02/06/19 15:15 Glucose (Glucose) 16 GM ASDIRECTED PRN PO SEE LABEL COMMENTS 02/06/19 15:15 Home Med (Med Rec Complete!) ASDIRECTED XX 02/05/19 08:15 02/05/19 08:27 DC Hydrochlorothiazide (Hydrodiuril) 25 mg DAILY PO 02/06/19 09:00 02/06/19 18:56 DC 02/06/19 08:46 Hydrochlorothiazide (Hydrodiuril) 25 mg DAILY PO 02/07/19 09:00 02/09/19 08:47 Hydroxyzine HCl (Atarax) 50 mg Q6HP PRN PO ANXIETY/AGITATION 02/06/19 18:45 Insulin Detemir (Levemir Insulin) 30 units BID SC 02/06/19 21:00 02/06/19 21:00 DC Insulin Detemir (Levemir Insulin) 30 units BID SC 02/06/19 21:00 02/07/19 04:54 DC Insulin Detemir (Levemir Insulin) 30 units BID SC 02/06/19 21:00 02/08/19 20:51 Insulin Human Lispro (HumaLOG INSULIN) See Protocol Table AC SD 02/06/19 17:30 02/08/19 12:20 Insulin Human Lispro (HumaLOG INSULIN) See Protocol Table QHS SD 02/06/19 21:00 Magnesium Hydroxide (Milk Of Magnesia) 30 ml DAILYPRN PRN PO CONSTIPATION 02/06/19 15:00 Magnesium Oxide (Mag-Ox) 400 mg DAILY PO 02/06/19 09:00 02/06/19 18:56 DC 02/06/19 08:46 Magnesium Oxide (Mag-Ox) 400 mg DAILY PO 02/07/19 09:00 02/09/19 08:44 Multivitamins (Theragram-M) 1 tab DAILY PO 02/06/19 09:00 02/06/19 19:50 DC 02/06/19 08:44 Nicotine (Nicorette) 2 mg Q2HP PRN PO NICOTINE WITHDRAWAL 02/06/19 21:45 02/07/19 17:00 DC 02/07/19 13:54 Nicotine (Nicorette) 4 mg Q2HP PRN PO SMOKING CESSATION 02/05/19 12:15 02/06/19 19:50 DC 02/06/19 14:34 Nicotine (Nicorette) 4 mg Q2HP PRN PO NICOTINE WITHDRAWAL 02/07/19 17:00 02/09/19 08:50 Oxycodone HCl (OxyCONTIN) 30 mg BID PO 02/05/19 21:00 02/06/19 18:56 DC 02/06/19 08:46 Oxycodone HCl (OxyCONTIN) 30 mg BID PO 02/06/19 21:00 02/09/19 08:45 Oxycodone HCl (Roxicodone, Oxyir) 5 mg Q4HP PRN PO BREAKTHROUGH PAIN 02/06/19 18:30 02/08/19 13:23 Oxycodone HCl (Roxicodone, Oxyir) 5 mg QIDP PRN PO PAIN OR DYSPNEA 02/05/19 13:15 02/06/19 18:56 DC 02/06/19 15:15 Potassium Chloride (Micro-K Extencaps) 20 meq DAILY PO 02/06/19 09:00 02/06/19 18:56 DC 02/06/19 08:45 Potassium Chloride (Micro-K Extencaps) 20 meq DAILY PO 02/07/19 09:00 02/09/19 08:44 Prazosin HCl (Minipress) 4 mg QHS PO 02/05/19 21:00 02/06/19 18:56 DC 02/05/19 20:58 Prazosin HCl (Minipress) 4 mg QHS PO 02/06/19 21:00 02/08/19 20:49 Quetiapine Fumarate (SEROquel) 100 mg DAILY PO 02/06/19 09:00 02/06/19 18:56 DC 02/06/19 08:44 Quetiapine Fumarate (SEROquel) 100 mg DAILY PO 02/07/19 09:00 02/09/19 08:46 Quetiapine Fumarate (SEROquel) 300 mg QHS PO 02/05/19 21:00 02/06/19 18:56 DC 02/05/19 20:58 Quetiapine Fumarate (SEROquel) 300 mg QHS PO 02/06/19 21:00 02/08/19 20:36 Thiamine HCl (Thiamine HCl) 100 mg DAILY PO 02/06/19 09:00 02/06/19 18:56 DC 02/06/19 08:44 Thiamine HCl (Thiamine HCl) 100 mg DAILY PO 02/07/19 09:00 02/09/19 08:45 Trazodone HCl (Desyrel) 50 mg QHS PRN PO INSOMNIA 02/06/19 18:30 Trazodone HCl (Desyrel) 50 mg QHSP PRN PO INSOMNIA 02/06/19 15:00 02/06/19 18:56 DC Allergies Coded Allergies: No Known Allergies (Unverified , 10/19/18) ANJUM LE DO Feb 09, 2019 11:04
[2019-02-09] MEDS: oxyCODONE 5MG TAB PO PRN (16:43)
[2019-02-09 18:16] VITALS: BP 150/90
[2019-02-09] MEDS: PRAZOSIN 1 MG CAP PO SCH (21:34)
[2019-02-10] MEDS: ACETAMINOPHEN 650MG ER TAB (TYLENOL ARTHRITIS) PO SCH ×3 (05:33→21:53)
[2019-02-10] MEDS: NICOTINE POLACRILEX 2 MG GUM PO PRN ×5 (05:35→21:56)
[2019-02-10 06:04] VITALS: BP 168/87
[2019-02-10] MEDS: LEVEMIR (INSULIN DETEMIR) 1 UNITS/0.01ML SC SCH ×2 (08:56→21:00)
[2019-02-10] MEDS: HumaLOG INSULIN (NovoLOG) PER UNIT SC SCH ×4 (08:57→21:00)
[2019-02-10] MEDS: MAGNESIUM OXIDE 400 MG TAB (MAG-OX) PO SCH (08:58)
[2019-02-10] MEDS: THIAMINE 100 MG TAB PO SCH (08:58)
[2019-02-10] MEDS: POTASSIUM CHLORIDE 10 MEQ SR TABLET PO SCH (08:58)
[2019-02-10] MEDS: AUGMENTIN 875 MG TAB PO SCH ×2 (08:58→21:53)
[2019-02-10] MEDS: CARVedilol 12.5 MG TAB PO SCH ×2 (08:59→21:54)
[2019-02-10] MEDS: DULoxetine 30 MG CAP (CYMBALTA) PO SCH (08:59)
[2019-02-10] MEDS: amLODIPine 10 MG TAB PO SCH (08:59)
[2019-02-10] MEDS: GABAPENTIN 400 MG CAP PO SCH ×3 (08:59→21:55)
[2019-02-10] MEDS: DIVALPROEX 250 MG TAB PO SCH ×2 (09:00→21:56)
[2019-02-10] MEDS: cloNIDine 0.1 MG TAB PO SCH ×3 (09:00→21:55)
[2019-02-10] MEDS: hydroCHLOROthiazide 25 MG TAB PO SCH (09:01)
[2019-02-10] MEDS: QUEtiapine FUMARATE 100 MG TAB PO SCH ×2 (09:01→21:55)
[2019-02-10] MEDS: oxyCODONE 15 MG CR TAB PO SCH ×2 (09:01→21:57)
[2019-02-10 16:28] VITALS: BP 120/73
[2019-02-10] MEDS: PRAZOSIN 1 MG CAP PO SCH (21:56)
[2019-02-11 06:50] VITALS: BP 146/70
[2019-02-11] MEDS: ACETAMINOPHEN 650MG ER TAB (TYLENOL ARTHRITIS) PO SCH ×3 (06:56→21:42)
[2019-02-11] MEDS: GABAPENTIN 400 MG CAP PO SCH ×3 (08:25→21:44)
[2019-02-11] MEDS: DULoxetine 30 MG CAP (CYMBALTA) PO SCH (08:26)
[2019-02-11] MEDS: POTASSIUM CHLORIDE 10 MEQ SR TABLET PO SCH (08:26)
[2019-02-11] MEDS: THIAMINE 100 MG TAB PO SCH (08:26)
[2019-02-11] MEDS: MAGNESIUM OXIDE 400 MG TAB (MAG-OX) PO SCH (08:26)
[2019-02-11] MEDS: AUGMENTIN 875 MG TAB PO SCH ×2 (08:27→21:42)
[2019-02-11] MEDS: DIVALPROEX 250 MG TAB PO SCH ×2 (08:27→21:44)
[2019-02-11] MEDS: QUEtiapine FUMARATE 100 MG TAB PO SCH ×2 (08:28→21:44)
[2019-02-11] MEDS: hydroCHLOROthiazide 25 MG TAB PO SCH (08:28)
[2019-02-11] MEDS: HumaLOG INSULIN (NovoLOG) PER UNIT SC SCH ×4 (08:30→21:00)
[2019-02-11] MEDS: oxyCODONE 15 MG CR TAB PO SCH ×2 (08:51→21:46)
[2019-02-11] MEDS: cloNIDine 0.1 MG TAB PO SCH ×3 (08:52→21:43)
[2019-02-11] MEDS: CARVedilol 12.5 MG TAB PO SCH ×2 (08:53→21:42)
[2019-02-11] MEDS: amLODIPine 10 MG TAB PO SCH (08:53)
[2019-02-11] MEDS: LEVEMIR (INSULIN DETEMIR) 1 UNITS/0.01ML SC SCH ×2 (09:26→21:00)
[2019-02-11] MEDS: NICOTINE POLACRILEX 2 MG GUM PO PRN ×4 (09:39→21:46)
[2019-02-11 16:41] VITALS: BP 112/70
[2019-02-11] MEDS: PRAZOSIN 1 MG CAP PO SCH (21:45)
[2019-02-12] MEDS: ACETAMINOPHEN 650MG ER TAB (TYLENOL ARTHRITIS) PO SCH ×3 (06:23→21:08)
[2019-02-12] MEDS: NICOTINE POLACRILEX 2 MG GUM PO PRN ×5 (06:45→21:10)
[2019-02-12 06:51] VITALS: BP 139/82
[2019-02-12] MEDS: HumaLOG INSULIN (NovoLOG) PER UNIT SC SCH ×4 (07:27→21:00)
[2019-02-12] MEDS: AUGMENTIN 875 MG TAB PO SCH ×2 (09:24→20:27)
[2019-02-12] MEDS: GABAPENTIN 400 MG CAP PO SCH ×3 (09:24→20:24)
[2019-02-12] MEDS: DIVALPROEX 250 MG TAB PO SCH ×2 (09:24→20:27)
[2019-02-12] MEDS: POTASSIUM CHLORIDE 10 MEQ SR TABLET PO SCH (09:24)
[2019-02-12] MEDS: MAGNESIUM OXIDE 400 MG TAB (MAG-OX) PO SCH (09:25)
[2019-02-12] MEDS: hydroCHLOROthiazide 25 MG TAB PO SCH (09:25)
[2019-02-12] MEDS: DULoxetine 30 MG CAP (CYMBALTA) PO SCH (09:25)
[2019-02-12] MEDS: QUEtiapine FUMARATE 100 MG TAB PO SCH ×2 (09:25→20:28)
[2019-02-12] MEDS: THIAMINE 100 MG TAB PO SCH (09:25)
[2019-02-12] MEDS: amLODIPine 10 MG TAB PO SCH (09:35)
[2019-02-12] MEDS: LEVEMIR (INSULIN DETEMIR) 1 UNITS/0.01ML SC SCH ×2 (09:36→20:48)
[2019-02-12] MEDS: oxyCODONE 15 MG CR TAB PO SCH (09:36)
[2019-02-12] MEDS: CARVedilol 12.5 MG TAB PO SCH ×2 (09:37→20:31)
[2019-02-12] MEDS: cloNIDine 0.1 MG TAB PO SCH ×3 (09:37→20:28)
--- NOTE | 2019-02-12 09:50 | MHIPNPDOC ---
[facility] Progress Note Progress Note Date of Service: 02/12/2019 History of Present Illness The patient, a 48-year-old man with a long psychiatric history, is admitted to our Inpatient service after reportedly being in our behavioral health unit over the weekend. He reportedly had presented with suicidal thoughts in the context of substance use, as well as reported auditory hallucinations. When I attempted to interview individual, he refused to talk to me, but was able to respond to cues suggesting volitional presentation. Interval History The patient is met with today. He appears more amenable. He does ask for increased food. He reports continued low mood, loss of Interest, hopelessness, guilt and that he worries about attending to himself as an outpatient due to substance use, poorly controlled diabetes and unhealing wound. He reports that he does get fairly sleepy when he takes his oxycodone and is open to trying Suboxone for chronic pain management as it does have some evidence for treatment of depression of which the patient has a long and complex history. The patient has generally been isolative to his room, rarely engages with staff or groups. The patient has not made any major demands or has been agitated. He primarily focuses on his immediate needs without significant changes. The patient reports that he has significant trauma with difficulty coping and trusting others. Review Of Systems Denies any tremors, muscle tightness, dizziness, headaches, chest pain, shortn ess of breath, palpitations, GI upset, nausea, vomiting, constipation at this time. Reports continued low mood. Psychotherapy None on this visit. Vital Signs Reviewed. Mental Status Examination General: Fair hygiene Speech: Fluid Thought processes: Linear and logical MSK: Smooth and coordinated gait, no signs of tremors or involuntary orofacial movements Thought content: Hopeless and pessimistic Abstract reasoning, and computation: Intact Description of associations: Intact Description of abnormal or psychotic thoughts: Denies suicidal thoughts at this time. Reports intermittent thoughts throughout the day. Denies homicidal thoughts. Denies auditory or visual hallucinations. Does not appear to be responding to internal stimuli. Judgment: poor Insight: poor Orientation: Alert and orientated 3 Cognition: Grossly normal Recent and remote memory: Intact Attention span and concentration: Intact Fund of knowledge: Adequate Mood: "bad" Affect: Dysthymic with a constricted range Diagnoses Unspecified depressive disorder. Rule out substance induced versus malingering. Stimulant use disorder, severe. Alcohol use disorder, severe. Tobacco use disorder, severe. Unspecified trauma/stressor related disorder. Assessment and Plan The patient is continued to have a complex course. He did fill out the rehab referrals and this would likely be quite helpful for him. Discussed with patient that changing his medication would likely be helpful. We will pull off of oxycodone into mild withdrawal and then start Suboxone 8 mg nightly after he starts demonstrating initial withdrawal symptoms of flu, GI upset and cold shakes. The patient was explained this process protocol, risks, benefits as well as potential side effects of which he consented. He reported that he felt this would be much more helpful than his oversedating oxycodone and was open to this. Discussed with the patient that if concerns arise that he could be replaced on to his oxycodone, but that he would need to be in mild withdrawal in order to ge t full benefit of Suboxone. Disposition Patient need a further inpatient admission as he is still fairly dysthymic and has very little ability to care for himself. His unhealing wound is further evidence of a severely impaired ability to care for himself and that his substance abuse as well as poor care for himself is likely further evidence of severe depression. Time Spent 15 minutes face to face. Tuesday Vital Signs Vital Signs Date Time Temp Pulse Resp B/P (MAP) Pulse Ox O2 Delivery O2 Flow Rate FiO2 02/12/19 09:36 16 02/12/19 09:35 61 176/86 02/12/19 06:51 96.9 02/06/19 16:43 99 02/06/19 16:15 Room Air Laboratory Data 24H Labs Laboratory Tests 2 02/11/19 12:33: Bedside Glucose (Misc Panel) 136H 02/11/19 17:29: Bedside Glucose (Misc Panel) 79 02/11/19 21:39: Bedside Glucose (Misc Panel) 108H 02/12/19 06:28: Bedside Glucose (Misc Panel) 189H Current Medications Current Medications Medications (Trade) Dose Ordered Sig/Tee Route PRN Reason Start Time Stop Time Status Last Admin Dose Admin Acetaminophen (Tylenol Arthritis Er) 650 mg Q8H PO 02/06/19 22:00 02/12/19 06:23 Acetaminophen (Tylenol Tab) 650 mg Q6HP PRN PO HEADACHE or DISCOMFORT 02/06/19 15:00 Cancel Al Hydrox/Mg Hydrox/Simethicone (Mylanta) 30 ml Q4HP PRN PO HEARTBURN/INDIGESTION 02/06/19 15:00 Amlodipine Besylate (Norvasc) 10 mg DAILY PO 02/06/19 09:00 02/06/19 18:46 DC 02/06/19 08:44 Amlodipine Besylate (Norvasc) 10 mg DAILY PO 02/07/19 09:00 02/12/19 09:35 Amoxicillin/ Clavulanate Potassium (Augmentin) 875 mg BID PO 02/05/19 21:00 02/06/19 18:56 DC 02/06/19 08:44 Amoxicillin/ Clavulanate Potassium (Augmentin) 875 mg BID PO 02/06/19 21:00 02/12/19 09:24 Carvedilol (COReg) 25 mg BID PO 02/05/19 21:00 02/06/19 18:56 DC 02/06/19 08:44 Carvedilol (COReg) 25 mg BID PO 02/06/19 21:00 02/12/19 09:37 Clonidine HCl (Catapres) 0.1 mg TID PO 02/05/19 16:00 02/06/19 18:56 DC 02/06/19 08:44 Clonidine HCl (Catapres) 0.1 mg TID PO 02/06/19 21:00 02/12/19 09:37 Dextrose (Dextrose 50%) 25 ml ASDIRECTED PRN IV SEE LABEL COMMENTS 02/06/19 15:15 Divalproex Sodium (Depakote) 750 mg BID PO 02/05/19 21:00 02/06/19 18:56 DC 02/06/19 08:45 Divalproex Sodium (Depakote) 750 mg BID PO 02/06/19 21:00 02/12/19 09:24 Duloxetine HCl (Cymbalta) 90 mg DAILY PO 02/06/19 09:00 02/06/19 18:56 DC 02/06/19 08:46 Duloxetine HCl (Cymbalta) 90 mg DAILY PO 02/07/19 09:00 02/12/19 09:25 Gabapentin (Neurontin) 400 mg TID PO 02/05/19 16:00 02/06/19 18:56 DC 02/06/19 08:46 Gabapentin (Neurontin) 400 mg TID PO 02/06/19 21:00 02/12/19 09:24 Glucagon (Glucagon) 1 mg ASDIRECTED PRN SC SEE LABEL COMMENTS 02/06/19 15:15 Glucose (Glucose) 16 GM ASDIRECTED PRN PO SEE LABEL COMMENTS 02/06/19 15:15 Home Med (Med Rec Complete!) ASDIRECTED XX 02/05/19 08:15 02/05/19 08:27 DC Hydrochlorothiazide (Hydrodiuril) 25 mg DAILY PO 02/06/19 09:00 02/06/19 18:56 DC 02/06/19 08:46 Hydrochlorothiazide (Hydrodiuril) 25 mg DAILY PO 02/07/19 09:00 02/12/19 09:25 Hydroxyzine HCl (Atarax) 50 mg Q6HP PRN PO ANXIETY/AGITATION 02/06/19 18:45 Insulin Detemir (Levemir Insulin) 30 units BID SC 02/06/19 21:00 02/06/19 21:00 DC Insulin Detemir (Levemir Insulin) 30 units BID SC 02/06/19 21:00 02/07/19 04:54 DC Insulin Detemir (Levemir Insulin) 30 units BID SC 02/06/19 21:00 02/12/19 09:36 Insulin Human Lispro (HumaLOG INSULIN) See Protocol Table AC SC 02/06/19 17:30 02/12/19 07:27 Insulin Human Lispro (HumaLOG INSULIN) See Protocol Table QHS SC 02/06/19 21:00 Magnesium Hydroxide (Milk Of Magnesia) 30 ml DAILYPRN PRN PO CONSTIPATION 02/06/19 15:00 Magnesium Oxide (Mag-Ox) 400 mg DAILY PO 02/06/19 09:00 02/06/19 18:56 DC 02/06/19 08:46 Magnesium Oxide (Mag-Ox) 400 mg DAILY PO 02/07/19 09:00 02/12/19 09:25 Multivitamins (Theragram-M) 1 tab DAILY PO 02/06/19 09:00 02/06/19 19:50 DC 02/06/19 08:44 Nicotine (Nicorette) 2 mg Q2HP PRN PO NICOTINE WITHDRAWAL 02/06/19 21:45 02/07/19 17:00 DC 02/07/19 13:54 Nicotine (Nicorette) 4 mg Q2HP PRN PO SMOKING CESSATION 02/05/19 12:15 02/06/19 19:50 DC 02/06/19 14:34 Nicotine (Nicorette) 4 mg Q2HP PRN PO NICOTINE WITHDRAWAL 02/07/19 17:00 02/12/19 09:25 Oxycodone HCl (OxyCONTIN) 30 mg BID PO 02/05/19 21:00 02/06/19 18:56 DC 02/06/19 08:46 Oxycodone HCl (OxyCONTIN) 30 mg BID PO 02/06/19 21:00 02/12/19 09:36 Oxycodone HCl (Roxicodone, Oxyir) 5 mg Q4HP PRN PO BREAKTHROUGH PAIN 02/06/19 18:30 02/09/19 16:43 Oxycodone HCl (Roxicodone, Oxyir) 5 mg QIDP PRN PO PAIN OR DYSPNEA 02/05/19 13:15 02/06/19 18:56 DC 02/06/19 15:15 Potassium Chloride (Micro-K Extencaps) 20 meq DAILY PO 02/06/19 09:00 02/06/19 18:56 DC 02/06/19 08:45 Potassium Chloride (Micro-K Extencaps) 20 meq DAILY PO 02/07/19 09:00 02/12/19 09:24 Prazosin HCl (Minipress) 4 mg QHS PO 02/05/19 21:00 02/06/19 18:56 DC 02/05/19 20:58 Prazosin HCl (Minipress) 4 mg QHS PO 02/06/19 21:00 02/11/19 21:45 Quetiapine Fumarate (SEROquel) 100 mg DAILY PO 02/06/19 09:00 02/06/19 18:56 DC 02/06/19 08:44 Quetiapine Fumarate (SEROquel) 100 mg DAILY PO 02/07/19 09:00 02/12/19 09:25 Quetiapine Fumarate (SEROquel) 300 mg QHS PO 02/05/19 21:00 02/06/19 18:56 DC 02/05/19 20:58 Quetiapine Fumarate (SEROquel) 300 mg QHS PO 02/06/19 21:00 02/11/19 21:44 Thiamine HCl (Thiamine HCl) 100 mg DAILY PO 02/06/19 09:00 02/06/19 18:56 DC 02/06/19 08:44 Thiamine HCl (Thiamine HCl) 100 mg DAILY PO 02/07/19 09:00 02/12/19 09:25 Trazodone HCl (Desyrel) 50 mg QHS PRN PO INSOMNIA 02/06/19 18:30 Trazodone HCl (Desyrel) 50 mg QHSP PRN PO INSOMNIA 02/06/19 15:00 02/06/19 18:56 DC Allergies Coded Allergies: No Known Allergies (Unverified , 10/19/18) ANJUM LE DO Feb 12, 2019 09:50
[2019-02-12] MEDS: hydrOXYzine 50 MG TAB PO PRN (13:24)
[2019-02-12 15:45] VITALS: BP 133/66
[2019-02-12] MEDS: PRAZOSIN 1 MG CAP PO SCH (20:28)
[2019-02-12] MEDS ORDERED: oxyCODONE 15 MG CR TAB PO ONE (20:45)
[2019-02-12] MEDS ORDERED: BUPRENORPHINE/NALOXONE 8-2MG SUBLINGUAL TABLET(SUBOXONE) SL SCH (21:00)
--- NOTE | 2019-02-12 21:34 | MHIPN ---
DATE: 02/10/2019 The patient today tells me "I'm all over the place." He says that he is not sleeping good at night that he is having nightmares and that he is sleeping half the day and days. He still has some fleeting suicidal ideations but he is able to contract for safety. MENTAL STATUS EXAMINATION: The patient was dosing on-and-off during my evaluation. He did become alert and seemed to be oriented times three. Eye contact was poor. There is no formal thought disorder. Mood is "all over the place." Affect constricted. The patient states that he still experiencing some auditory hallucinations. The patient continues to have some fleeting suicidal thought but is able to contract for safety. He is not homicidal. Concentration is fair. Insight and judgment is poor. DIAGNOSIS: 1. Unspecified depressive disorder. 2. Stimulant use disorder, severe. 3. Alcohol use disorder, severe. 4. Unspecified tremor/stress or related disorder. TREATMENT PLAN: At this point, we will continue to monitor the patient for continued elevation and stabilization of his mood and continued resolution of suicidal ideations. We will continue to titrate his medications as indicated.
[2019-02-13] MEDS: ACETAMINOPHEN 650MG ER TAB (TYLENOL ARTHRITIS) PO SCH ×3 (06:01→21:27)
[2019-02-13] MEDS: HumaLOG INSULIN (NovoLOG) PER UNIT SC SCH ×5 (06:33→21:00)
[2019-02-13 07:00] VITALS: BP 137/76
[2019-02-13] MEDS: POTASSIUM CHLORIDE 10 MEQ SR TABLET PO SCH (08:57)
[2019-02-13] MEDS: QUEtiapine FUMARATE 100 MG TAB PO SCH (08:58)
[2019-02-13] MEDS: hydroCHLOROthiazide 25 MG TAB PO SCH (08:58)
[2019-02-13] MEDS: MAGNESIUM OXIDE 400 MG TAB (MAG-OX) PO SCH (08:58)
[2019-02-13] MEDS: THIAMINE 100 MG TAB PO SCH (08:58)
[2019-02-13] MEDS: AUGMENTIN 875 MG TAB PO SCH ×2 (08:58→21:28)
[2019-02-13] MEDS: DIVALPROEX 250 MG TAB PO SCH ×2 (08:58→21:27)
[2019-02-13] MEDS: GABAPENTIN 400 MG CAP PO SCH ×3 (08:58→21:27)
[2019-02-13] MEDS: DULoxetine 30 MG CAP (CYMBALTA) PO SCH (08:58)
[2019-02-13] MEDS: LEVEMIR (INSULIN DETEMIR) 1 UNITS/0.01ML SC SCH ×2 (08:59→21:00)
[2019-02-13] MEDS: cloNIDine 0.1 MG TAB PO SCH ×3 (09:03→21:28)
[2019-02-13] MEDS: CARVedilol 12.5 MG TAB PO SCH ×2 (09:03→21:28)
[2019-02-13] MEDS: amLODIPine 10 MG TAB PO SCH (09:04)
[2019-02-13] MEDS: NICOTINE POLACRILEX 2 MG GUM PO PRN ×4 (09:34→21:49)
--- NOTE | 2019-02-13 10:46 | MHIPNPDOC ---
[facility] Progress Note Progress Note Date of Service: 02/13/2019 History of Present Illness The patient, a 48-year-old man with a long psychiatric history, is admitted to our inpatient service after reportedly being in our behavioral health unit over the weekend. He reportedly had presented with suicidal thoughts in the context of substance use, as well as reported auditory hallucinations. When I attempted to interview individual, he refused to talk to me, but was able to respond to cues suggesting volitional presentation. Interval History The patient is met with today. He reports that he is doing somewhat better in terms of his depression with less hopelessness, but continues to report fatigue, loss of interest, concentration problems, especially related to thinking about his diabetes and his non-chronic healing wound ulcer. He reports that the b uprenorphine is helpful and that his pain is better controlled on the 8 mg nightly, but that it doesn't cover throughout the day. He otherwise has had no major behavioral problems. Does isolate to his room significantly, but has had no outbursts or other concerning issues overnight. Continues to report difficulties with isolative wants due to history of trauma. Denies any chest michael n, palpitations, shortness of breath, cough, GI upset, constipation, nausea, vomiting, tremors, or dizziness today. Reports Seroquel is sedating to him during the day and that he might be oversedated from his 100 mg of Seroquel in the morning. Review Of Systems As above. Psychotherapy None on this visit. Vital Signs Reviewed. Mental Status Examination Sookie-copy naturalsookie-copy [id number] General: Fair hygiene Speech: Fluid Thought processes: Linear and logical MSK: Smooth and coordinated gait, no signs of tremors or involuntary orofacial movements Thought content: Hopeless and pessimistic Abstract reasoning, and computation: Intact Description of associations: Intact Description of abnormal or psychotic thoughts: Admits to suicidal thoughts passing at this time. Denies homicidal thoughts. Judgment: poor Insight: poor Orientation: Alert and orientated 3 Cognition: Grossly normal Recent and remote memory: Intact Attention span and concentration: Intact Fund of knowledge: Adequate Mood: "bad" Affect: Dysthymic with a constricted range Diagnoses Unspecified depressive disorder. Rule out substance induced versus malingering. Stimulant use disorder, severe. Alcohol use disorder, severe. Tobacco use disorder, severe. Unspecified trauma/stressor related disorder. Assessment and Plan We'll change buprenorphine to 8 mg BID to better cover pain. Continue discontinuing oxycodone. We'll change Seroquel to 400 mg extended-release nightly to reduce sedation. Disposition Patient need a further inpatient admission as he is still fairly dysthymic and has very little ability to care for himself. His unhealing wound is further evidence of a severely impaired ability to care for himself and that his substance abuse as well as poor care for himself is likely further evidence of severe depression. Time Spent 15 minutes [id number]. Tuesday Vital Signs Vital Signs Date Time Temp Pulse Resp B/P (MAP) Pulse Ox O2 Delivery O2 Flow Rate FiO2 02/13/19 09:04 64 110/80 02/13/19 07:00 97.6 14 Laboratory Data 24H Labs Laboratory Tests 2 02/12/19 11:45: Bedside Glucose (Misc Panel) 158H 02/12/19 16:49: Bedside Glucose (Misc Panel) 72 02/12/19 20:17: Bedside Glucose (Misc Panel) 172H 02/13/19 06:04: Bedside Glucose (Misc Panel) 95 Current Medications Current Medications Medications (Trade) Dose Ordered Sig/Tee Route PRN Reason Start Time Stop Time Status Last Admin Dose Admin Acetaminophen (Tylenol Arthritis Er) 650 mg Q8H PO 02/06/19 22:00 02/13/19 06:01 Acetaminophen (Tylenol Tab) 650 mg Q6HP PRN PO HEADACHE or DISCOMFORT 02/06/19 15:00 Cancel Al Hydrox/Mg Hydrox/Simethicone (Mylanta) 30 ml Q4HP PRN PO HEARTBURN/INDIGESTION 02/06/19 15:00 Amlodipine Besylate (Norvasc) 10 mg DAILY PO 02/06/19 09:00 02/06/19 18:46 DC 02/06/19 08:44 Amlodipine Besylate (Norvasc) 10 mg DAILY PO 02/07/19 09:00 02/13/19 09:04 Amoxicillin/ Clavulanate Potassium (Augmentin) 875 mg BID PO 02/05/19 21:00 02/06/19 18:56 DC 02/06/19 08:44 Amoxicillin/ Clavulanate Potassium (Augmentin) 875 mg BID PO 02/06/19 21:00 02/13/19 08:58 Buprenorphine/ Naloxone (Suboxone 8/2mg) 1 tab QHS SL 02/12/19 21:00 02/12/19 20:23 Carvedilol (COReg) 25 mg BID PO 02/05/19 21:00 02/06/19 18:56 DC 02/06/19 08:44 Carvedilol (COReg) 25 mg BID PO 02/06/19 21:00 02/13/19 09:03 Clonidine HCl (Catapres) 0.1 mg TID PO 02/05/19 16:00 02/06/19 18:56 DC 02/06/19 08:44 Clonidine HCl (Catapres) 0.1 mg TID PO 02/06/19 21:00 02/13/19 09:03 Dextrose (Dextrose 50%) 25 ml ASDIRECTED PRN IV SEE LABEL COMMENTS 02/06/19 15:15 Divalproex Sodium (Depakote) 750 mg BID PO 02/05/19 21:00 02/06/19 18:56 DC 02/06/19 08:45 Divalproex Sodium (Depakote) 750 mg BID PO 02/06/19 21:00 02/13/19 08:58 Duloxetine HCl (Cymbalta) 90 mg DAILY PO 02/06/19 09:00 02/06/19 18:56 DC 02/06/19 08:46 Duloxetine HCl (Cymbalta) 90 mg DAILY PO 02/07/19 09:00 02/13/19 08:58 Gabapentin (Neurontin) 400 mg TID PO 02/05/19 16:00 02/06/19 18:56 DC 02/06/19 08:46 Gabapentin (Neurontin) 400 mg TID PO 02/06/19 21:00 02/13/19 08:58 Glucagon (Glucagon) 1 mg ASDIRECTED PRN SC SEE LABEL COMMENTS 02/06/19 15:15 Glucose (Glucose) 16 GM ASDIRECTED PRN PO SEE LABEL COMMENTS 02/06/19 15:15 Home Med (Med Rec Complete!) ASDIRECTED XX 02/05/19 08:15 02/05/19 08:27 DC Hydrochlorothiazide (Hydrodiuril) 25 mg DAILY PO 02/06/19 09:00 02/06/19 18:56 DC 02/06/19 08:46 Hydrochlorothiazide (Hydrodiuril) 25 mg DAILY PO 02/07/19 09:00 02/13/19 08:58 Hydroxyzine HCl (Atarax) 50 mg Q6HP PRN PO ANXIETY/AGITATION 02/06/19 18:45 02/12/19 13:24 Insulin Detemir (Levemir Insulin) 30 units BID SC 02/06/19 21:00 02/06/19 21:00 DC Insulin Detemir (Levemir Insulin) 30 units BID SC 02/06/19 21:00 02/07/19 04:54 DC Insulin Detemir (Levemir Insulin) 30 units BID SC 02/06/19 21:00 02/13/19 08:59 Insulin Human Lispro (HumaLOG INSULIN) See Protocol Table AC SC 02/06/19 17:30 02/12/19 11:48 Insulin Human Lispro (HumaLOG INSULIN) See Protocol Table QHS SC 02/06/19 21:00 Magnesium Hydroxide (Milk Of Magnesia) 30 ml DAILYPRN PRN PO CONSTIPATION 02/06/19 15:00 Magnesium Oxide (Mag-Ox) 400 mg DAILY PO 02/06/19 09:00 02/06/19 18:56 DC 02/06/19 08:46 Magnesium Oxide (Mag-Ox) 400 mg DAILY PO 02/07/19 09:00 02/13/19 08:58 Miscellaneous (Unresolved Clarification Entry) SEE LABEL COMMENTS DAILY XX 02/13/19 09:00 02/13/19 10:38 DC Multivitamins (Theragram-M) 1 tab DAILY PO 02/06/19 09:00 02/06/19 19:50 DC 02/06/19 08:44 Nicotine (Nicorette) 2 mg Q2HP PRN PO NICOTINE WITHDRAWAL 02/06/19 21:45 02/07/19 17:00 DC 02/07/19 13:54 Nicotine (Nicorette) 4 mg Q2HP PRN PO SMOKING CESSATION 02/05/19 12:15 02/06/19 19:50 DC 02/06/19 14:34 Nicotine (Nicorette) 4 mg Q2HP PRN PO NICOTINE WITHDRAWAL 02/07/19 17:00 02/13/19 09:34 Oxycodone HCl (OxyCONTIN) 30 mg BID PO 02/05/19 21:00 02/06/19 18:56 DC 02/06/19 08:46 Oxycodone HCl (OxyCONTIN) 30 mg BID PO 02/06/19 21:00 02/12/19 11:35 DC 02/12/19 09:36 Oxycodone HCl (Roxicodone, Oxyir) 5 mg Q4HP PRN PO BREAKTHROUGH PAIN 02/06/19 18:30 02/12/19 11:35 DC 02/09/19 16:43 Oxycodone HCl (Roxicodone, Oxyir) 5 mg QIDP PRN PO PAIN OR DYSPNEA 02/05/19 13:15 02/06/19 18:56 DC 02/06/19 15:15 Potassium Chloride (Micro-K Extencaps) 20 meq DAILY PO 02/06/19 09:00 02/06/19 18:56 DC 02/06/19 08:45 Potassium Chloride (Micro-K Extencaps) 20 meq DAILY PO 02/07/19 09:00 02/13/19 08:57 Prazosin HCl (Minipress) 4 mg QHS PO 02/05/19 21:00 02/06/19 18:56 DC 02/05/19 20:58 Prazosin HCl (Minipress) 4 mg QHS PO 02/06/19 21:00 02/12/19 20:28 Quetiapine Fumarate (SEROquel) 100 mg DAILY PO 02/06/19 09:00 02/06/19 18:56 DC 02/06/19 08:44 Quetiapine Fumarate (SEROquel) 100 mg DAILY PO 02/07/19 09:00 02/13/19 08:58 Quetiapine Fumarate (SEROquel) 300 mg QHS PO 02/05/19 21:00 02/06/19 18:56 DC 02/05/19 20:58 Quetiapine Fumarate (SEROquel) 300 mg QHS PO 02/06/19 21:00 02/12/19 20:28 Thiamine HCl (Thiamine HCl) 100 mg DAILY PO 02/06/19 09:00 02/06/19 18:56 DC 02/06/19 08:44 Thiamine HCl (Thiamine HCl) 100 mg DAILY PO 02/07/19 09:00 02/13/19 08:58 Trazodone HCl (Desyrel) 50 mg QHS PRN PO INSOMNIA 02/06/19 18:30 Trazodone HCl (Desyrel) 50 mg QHSP PRN PO INSOMNIA 02/06/19 15:00 02/06/19 18:56 DC Allergies Coded Allergies: No Known Allergies (Unverified , 10/19/18) ANJUM LE DO Feb 13, 2019 10:46
[2019-02-13] MEDS ORDERED: BUPRENORPHINE/NALOXONE 2-0.5MG SUBLINGUAL TABLET(SUBOXONE) SL ONE (16:00)
[2019-02-13 18:00] VITALS: BP 144/82
[2019-02-13] MEDS: BUPRENORPHINE/NALOXONE 8-2MG SUBLINGUAL TABLET(SUBOXONE) SL SCH (21:27)
[2019-02-13] MEDS: QUEtiapine FUMARATE **XR** 200MG TABLET PO SCH (21:28)
[2019-02-13] MEDS: PRAZOSIN 1 MG CAP PO SCH (21:29)
[2019-02-14] MEDS: ACETAMINOPHEN 650MG ER TAB (TYLENOL ARTHRITIS) PO SCH ×3 (06:10→21:25)
[2019-02-14 07:00] VITALS: BP 135/82
[2019-02-14] MEDS: HumaLOG INSULIN (NovoLOG) PER UNIT SC SCH ×4 (07:07→21:00)
[2019-02-14] MEDS: NICOTINE POLACRILEX 2 MG GUM PO PRN ×4 (07:31→17:55)
[2019-02-14] MEDS: AUGMENTIN 875 MG TAB PO SCH ×2 (08:56→21:23)
[2019-02-14] MEDS: THIAMINE 100 MG TAB PO SCH (08:56)
[2019-02-14] MEDS: amLODIPine 10 MG TAB PO SCH (08:56)
[2019-02-14] MEDS: hydroCHLOROthiazide 25 MG TAB PO SCH (08:56)
[2019-02-14] MEDS: cloNIDine 0.1 MG TAB PO SCH ×3 (08:56→21:23)
[2019-02-14] MEDS: BUPRENORPHINE/NALOXONE 8-2MG SUBLINGUAL TABLET(SUBOXONE) SL SCH ×2 (08:57→21:33)
[2019-02-14] MEDS: POTASSIUM CHLORIDE 10 MEQ SR TABLET PO SCH (08:57)
[2019-02-14] MEDS: DULoxetine 30 MG CAP (CYMBALTA) PO SCH (08:57)
[2019-02-14] MEDS: MAGNESIUM OXIDE 400 MG TAB (MAG-OX) PO SCH (08:57)
[2019-02-14] MEDS: DIVALPROEX 250 MG TAB PO SCH ×2 (08:58→21:24)
[2019-02-14] MEDS: CARVedilol 12.5 MG TAB PO SCH ×2 (08:58→21:23)
[2019-02-14] MEDS: LEVEMIR (INSULIN DETEMIR) 1 UNITS/0.01ML SC SCH ×2 (08:58→21:37)
[2019-02-14] MEDS: GABAPENTIN 400 MG CAP PO SCH ×3 (08:58→21:24)
[2019-02-14 14:45] VITALS: BP 148/67
[2019-02-14] MEDS: PRAZOSIN 1 MG CAP PO SCH (21:24)
[2019-02-14] MEDS: QUEtiapine FUMARATE **XR** 200MG TABLET PO SCH (21:24)
--- NOTE | 2019-02-14 22:43 | MHIPN ---
DATE: 02/14/2019 SUBJECTIVE: I am not feeling well. I need help. I am depressed and I want to go to a rehab. OBJECTIVE: He is a 48-year-old male with history of polysubstance dependence and with history of IV drug use, was admitted because of depression, suicidal thoughts with a plan jumping into the river. Reportedly, the patient was hopeless, helpless. He had a wound vacuum placed on his left arm. He reported that it was not helping. It had stopped working and needed help with that also. The patient continues to be depressed and anxious. Complains of some vague suicidal thoughts. Currently, he is on Suboxone 8 mg twice daily, Cymbalta 90 mg once daily, Depakote 750 mg twice a day, gabapentin 400 mg three times a day, trazodone 50 mg at bedtime (hs) as needed. His mental status examination, causally dressed, laying in his bed. Reports he cannot get up from the bed. However, after my evaluation, he started walking up and went to the recreation room. Transferred to an inpatient rehab is in process. MENTAL STATUS EXAMINATION: Causally dressed, laying in his bed, cooperating. Made good eye contact. Psychomotor activity is normal. Speech, rate, rhythm, volume are good. Thought process: Linear, goal directed. Thought content: Some vague suicidal thoughts. No evidence of any delusions. Insight and judgment are poor. Memory immediate, remote, recent are good. Oriented to time, place, person and situation. DIAGNOSIS: 1. Depressive disorder. 2. Polysubstance use disorder. Plan is to continue current medication and will be referred to inpatient rehabilitation. Continue individual group and Milieu therapy. Estimated length of stay 4 to 5 days.
[2019-02-15] MEDS: NICOTINE POLACRILEX 2 MG GUM PO PRN ×7 (03:13→22:10)
[2019-02-15] MEDS: ACETAMINOPHEN 650MG ER TAB (TYLENOL ARTHRITIS) PO SCH ×3 (06:20→21:57)
[2019-02-15 06:34] VITALS: BP 146/88
[2019-02-15] MEDS: HumaLOG INSULIN (NovoLOG) PER UNIT SC SCH ×4 (06:35→21:00)
[2019-02-15] MEDS: BUPRENORPHINE/NALOXONE 8-2MG SUBLINGUAL TABLET(SUBOXONE) SL SCH ×2 (09:49→21:57)
[2019-02-15] MEDS: POTASSIUM CHLORIDE 10 MEQ SR TABLET PO SCH (09:49)
[2019-02-15] MEDS: MAGNESIUM OXIDE 400 MG TAB (MAG-OX) PO SCH (09:49)
[2019-02-15] MEDS: DIVALPROEX 250 MG TAB PO SCH ×2 (09:49→21:55)
[2019-02-15] MEDS: DULoxetine 30 MG CAP (CYMBALTA) PO SCH (09:49)
[2019-02-15] MEDS: amLODIPine 10 MG TAB PO SCH (09:50)
[2019-02-15] MEDS: AUGMENTIN 875 MG TAB PO SCH ×2 (09:50→21:51)
[2019-02-15] MEDS: hydroCHLOROthiazide 25 MG TAB PO SCH (09:50)
[2019-02-15] MEDS: CARVedilol 12.5 MG TAB PO SCH ×2 (09:50→21:54)
[2019-02-15] MEDS: GABAPENTIN 400 MG CAP PO SCH ×3 (09:50→21:54)
[2019-02-15] MEDS: cloNIDine 0.1 MG TAB PO SCH ×3 (09:51→21:54)
[2019-02-15] MEDS: LEVEMIR (INSULIN DETEMIR) 1 UNITS/0.01ML SC SCH ×2 (09:51→21:00)
[2019-02-15] MEDS: THIAMINE 100 MG TAB PO SCH (09:51)
[2019-02-15] MEDS: hydrOXYzine 50 MG TAB PO PRN (14:51)
[2019-02-15 18:00] VITALS: BP 132/88
--- NOTE | 2019-02-15 19:16 | MHIPN ---
DATE: 02/15/2019 SUBJECTIVE: I am feeling better. I don't want to use any drugs anymore. I lost my two family members, I don't want to . OBJECTIVE: This is a 48-year-old male with history of polysubstance dependence and history of IV drug use was admitted because of depression and suicidal thoughts with a plan to jump into the river. Reportedly, the patient was hopeless, helpless. He had a wound vacuum placed on his left arm after he developed cellulitis. He reported that it was not helping. It had stopped working and needed help and came to the hospital. The patient continues to be depressed. However, he is attending groups and interacting with the peers. He does not have any suicidal thoughts. Currently, he is on Suboxone 8 mg daily, Cymbalta 40 mg once daily, Depakote 750 mg twice daily, gabapentin 400 mg three times daily, trazodone 50 mg at bedtime. MENTAL STATUS EXAMINATION: Causally dressed, cooperative, made good eye contact. Psychomotor activity is normal. Speech: Rate, rhythm, volume are good. Thought process: Linear and goal directed. Thought content: Denied any suicidal thoughts. No evidence of any delusions. Insight and judgment are fair to limited. Memory: Immediate, remote, recent are good. Oriented to time, place, and person. DIAGNOSES: 1. Depressive disorder unspecified. 2. Polysubstance use disorder. PLAN: He is to continue current medication. Continue individual group and Milieu therapy. Referral to an inpatient rehabilitation is in process. VITAL SIGNS: Temperature 99.4, respirations 16, pulse is 66, blood pressure 146/88. REVIEW OF SYSTEMS: Denies chest pain, palpitations, denied abdominal pain, dysuria. Denied cough, shortness of breath. Denied tingling, numbness. Gait is normal. CURRENT MEDICATIONS: - Suboxone 8 mg/2 mg twice daily - carvedilol 25 mg twice a day - clonidine 0.1 mg three times a day - Depakote 750 mg by mouth twice a day - Cymbalta 90 mg once daily - gabapentin 400 mg once daily - The patient also is on insulin - prazosin 4 mg at night His blood sugar today was 255. His hemoglobin A1c is 10.5. His toxicology was positive for amphetamines.
[2019-02-15] MEDS: QUEtiapine FUMARATE **XR** 200MG TABLET PO SCH (21:55)
[2019-02-15] MEDS: PRAZOSIN 1 MG CAP PO SCH (21:56)
[2019-02-16] MEDS: ACETAMINOPHEN 650MG ER TAB (TYLENOL ARTHRITIS) PO SCH ×3 (06:30→20:59)
[2019-02-16] MEDS: NICOTINE POLACRILEX 2 MG GUM PO PRN ×7 (06:32→23:44)
[2019-02-16] MEDS: HumaLOG INSULIN (NovoLOG) PER UNIT SC SCH ×4 (06:37→20:38)
[2019-02-16 06:43] VITALS: BP 143/82
[2019-02-16] MEDS: AUGMENTIN 875 MG TAB PO SCH ×2 (08:55→20:40)
[2019-02-16] MEDS: MAGNESIUM OXIDE 400 MG TAB (MAG-OX) PO SCH (08:55)
[2019-02-16] MEDS: CARVedilol 12.5 MG TAB PO SCH ×2 (08:55→20:39)
[2019-02-16] MEDS: GABAPENTIN 400 MG CAP PO SCH ×3 (08:56→20:39)
[2019-02-16] MEDS: THIAMINE 100 MG TAB PO SCH (08:56)
[2019-02-16] MEDS: DIVALPROEX 250 MG TAB PO SCH ×2 (08:56→20:41)
[2019-02-16] MEDS: cloNIDine 0.1 MG TAB PO SCH ×3 (08:56→20:40)
[2019-02-16] MEDS: DULoxetine 30 MG CAP (CYMBALTA) PO SCH (08:57)
[2019-02-16] MEDS: POTASSIUM CHLORIDE 10 MEQ SR TABLET PO SCH (08:57)
[2019-02-16] MEDS: amLODIPine 10 MG TAB PO SCH (08:57)
[2019-02-16] MEDS: LEVEMIR (INSULIN DETEMIR) 1 UNITS/0.01ML SC SCH ×2 (08:58→20:38)
[2019-02-16] MEDS: BUPRENORPHINE/NALOXONE 8-2MG SUBLINGUAL TABLET(SUBOXONE) SL SCH ×2 (08:58→20:39)
[2019-02-16] MEDS: hydroCHLOROthiazide 25 MG TAB PO SCH (09:00)
[2019-02-16 18:00] VITALS: BP 172/92
--- NOTE | 2019-02-16 18:40 | MHIPN ---
DATE: 02/16/2019 SUBJECTIVE: "I'm not feeling well today, I feel weak and depressed, if you discharge me I would like to go and jump off the bridge." OBJECTIVE: He is a 48-year-old male with history of polysubstance dependence and history of IV drug use who was admitted because of depression and suicidal thoughts with a plan to jump into the river. Reportedly, the patient was hopeless, helpless. He had a wound vacuum placed on his left arm after he developed cellulitis. He reported that it was not helping him and he came to the hospital for help. However, he is attending groups and interacting with the peers. At times, he stays himself to his room. Today, he expressed suicidal thoughts. He continues to be on Suboxone 8 mg daily, Cymbalta 40 mg once daily, Depakote 75 mg twice daily, gabapentin 400 mg three times daily, and trazodone 50 mg at bedtime. MENTAL STATUS EXAMINATION: Casually dressed, cooperative, made poor eye contact. Psychomotor activity is normal. Speech: Rate, rhythm and volume are good. Thought process: Linear, goal-directed. Thought content: He denied any delusions. However, he reported suicidal thoughts with a plan. His insight and judgment are limited. Memory: Immediate, remote, recent are good. Oriented to time, place, and person. DIAGNOSES: 1. Depressive disorder, unspecified. 2. Polysubstance use disorder. VITAL SIGNS: Temperature 97.9, respiratory rate is 14, pulse is 65, and blood pressure 143/82. REVIEW OF SYSTEMS: Denied chest pain, palpitations. Denied abdominal pain, dysuria. Denied shortness of breath or cough. Denied dizziness, numbness, tingling. Gait is normal. CURRENT MEDICATIONS: - quetiapine 400 mg at night and 100 mg daily - Cymbalta 90 mg daily - Depakote 750 mg twice a day - gabapentin 400 mg three times a day - prazosin 4 mg at night The patient is on current medications for medical issues. PLAN: Continue current medications. Continue individual, group and milieu therapy. Next week, he probably may get a bed in inpatient rehabilitation.
[2019-02-16] MEDS: QUEtiapine FUMARATE **XR** 200MG TABLET PO SCH (20:39)
[2019-02-16] MEDS: PRAZOSIN 1 MG CAP PO SCH (20:40)
[2019-02-16] MEDS ORDERED: QUEtiapine FUMARATE 50 MG TAB PO SCH (21:00)
[2019-02-17 06:25] VITALS: BP 148/90
[2019-02-17] MEDS: ACETAMINOPHEN 650MG ER TAB (TYLENOL ARTHRITIS) PO SCH ×3 (07:30→22:29)
[2019-02-17] MEDS: HumaLOG INSULIN (NovoLOG) PER UNIT SC SCH ×4 (07:30→21:00)
[2019-02-17] MEDS: AUGMENTIN 875 MG TAB PO SCH ×2 (10:07→21:00)
[2019-02-17] MEDS: GABAPENTIN 400 MG CAP PO SCH ×3 (10:07→20:55)
[2019-02-17] MEDS: MAGNESIUM OXIDE 400 MG TAB (MAG-OX) PO SCH (10:08)
[2019-02-17] MEDS: POTASSIUM CHLORIDE 10 MEQ SR TABLET PO SCH (10:08)
[2019-02-17] MEDS: DIVALPROEX 250 MG TAB PO SCH ×2 (10:08→21:00)
[2019-02-17] MEDS: BUPRENORPHINE/NALOXONE 8-2MG SUBLINGUAL TABLET(SUBOXONE) SL SCH (10:08)
[2019-02-17] MEDS: DULoxetine 30 MG CAP (CYMBALTA) PO SCH (10:09)
[2019-02-17] MEDS: hydroCHLOROthiazide 25 MG TAB PO SCH (10:09)
[2019-02-17] MEDS: LEVEMIR (INSULIN DETEMIR) 1 UNITS/0.01ML SC SCH ×2 (10:10→21:17)
[2019-02-17] MEDS: THIAMINE 100 MG TAB PO SCH (10:11)
[2019-02-17] MEDS: CARVedilol 12.5 MG TAB PO SCH ×2 (10:24→20:57)
[2019-02-17] MEDS: cloNIDine 0.1 MG TAB PO SCH ×3 (10:24→21:01)
[2019-02-17] MEDS: amLODIPine 10 MG TAB PO SCH (10:24)
[2019-02-17] MEDS: NICOTINE POLACRILEX 2 MG GUM PO PRN ×5 (10:24→22:32)
[2019-02-17] MEDS: hydrOXYzine 50 MG TAB PO PRN (12:34)
[2019-02-17 16:26] VITALS: BP 163/87
[2019-02-17] MEDS: QUEtiapine FUMARATE **XR** 200MG TABLET PO SCH (20:59)
[2019-02-17] MEDS: PRAZOSIN 1 MG CAP PO SCH (20:59)
[2019-02-17] MEDS ORDERED: BUPRENORPHINE/NALOXONE 8-2MG SUBLINGUAL TABLET(SUBOXONE) SL SCH (21:00)
[2019-02-17] MEDS: QUEtiapine FUMARATE 50 MG TAB PO PRN (21:02)
[2019-02-17 23:26] VITALS: BP 141/72
[2019-02-18] MEDS: ACETAMINOPHEN 650MG ER TAB (TYLENOL ARTHRITIS) PO SCH ×3 (06:10→21:22)
[2019-02-18 06:14] VITALS: BP 121/56
[2019-02-18] MEDS: HumaLOG INSULIN (NovoLOG) PER UNIT SC SCH ×4 (06:54→20:40)
[2019-02-18] MEDS: POTASSIUM CHLORIDE 10 MEQ SR TABLET PO SCH (08:38)
[2019-02-18] MEDS: DIVALPROEX 250 MG TAB PO SCH ×2 (08:39→20:40)
[2019-02-18] MEDS: DULoxetine 30 MG CAP (CYMBALTA) PO SCH (08:39)
[2019-02-18] MEDS: AUGMENTIN 875 MG TAB PO SCH ×2 (08:40→20:39)
[2019-02-18] MEDS: MAGNESIUM OXIDE 400 MG TAB (MAG-OX) PO SCH (08:41)
[2019-02-18] MEDS: THIAMINE 100 MG TAB PO SCH (08:41)
[2019-02-18] MEDS: cloNIDine 0.1 MG TAB PO SCH ×3 (08:41→20:39)
[2019-02-18] MEDS: hydroCHLOROthiazide 25 MG TAB PO SCH (08:41)
[2019-02-18] MEDS: amLODIPine 10 MG TAB PO SCH (08:41)
[2019-02-18] MEDS: CARVedilol 12.5 MG TAB PO SCH ×2 (08:42→20:36)
[2019-02-18] MEDS: GABAPENTIN 400 MG CAP PO SCH ×3 (08:42→20:39)
[2019-02-18] MEDS: NICOTINE POLACRILEX 2 MG GUM PO PRN ×6 (08:44→23:43)
[2019-02-18] MEDS: LEVEMIR (INSULIN DETEMIR) 1 UNITS/0.01ML SC SCH ×2 (08:44→20:39)
[2019-02-18] MEDS ORDERED: BUPRENORPHINE/NALOXONE 8-2MG SUBLINGUAL TABLET(SUBOXONE) SL SCH (09:00)
[2019-02-18] MEDS ORDERED: PILL CUTTER 1 EACH XX PRN (13:45)
[2019-02-18 16:09] VITALS: BP 137/61
[2019-02-18] MEDS: BUPRENORPHINE/NALOXONE 2-0.5MG SUBLINGUAL TABLET(SUBOXONE) SL SCH (20:39)
[2019-02-18] MEDS: QUEtiapine FUMARATE **XR** 200MG TABLET PO SCH (20:39)
[2019-02-18] MEDS: PRAZOSIN 1 MG CAP PO SCH (20:40)
[2019-02-19] MEDS: ACETAMINOPHEN 650MG ER TAB (TYLENOL ARTHRITIS) PO SCH ×3 (06:00→21:37)
[2019-02-19 06:35] VITALS: BP 154/74
[2019-02-19] MEDS ORDERED: BUPRENORPHINE/NALOXONE 8-2MG SUBLINGUAL TABLET(SUBOXONE) SL SCH (09:00)
[2019-02-19] MEDS: AUGMENTIN 875 MG TAB PO SCH ×2 (09:35→21:38)
[2019-02-19] MEDS: amLODIPine 10 MG TAB PO SCH (09:36)
[2019-02-19] MEDS: cloNIDine 0.1 MG TAB PO SCH ×3 (09:36→21:38)
[2019-02-19] MEDS: CARVedilol 12.5 MG TAB PO SCH ×2 (09:36→21:38)
[2019-02-19] MEDS: MAGNESIUM OXIDE 400 MG TAB (MAG-OX) PO SCH (09:37)
[2019-02-19] MEDS: POTASSIUM CHLORIDE 10 MEQ SR TABLET PO SCH (09:37)
[2019-02-19] MEDS: hydroCHLOROthiazide 25 MG TAB PO SCH (09:37)
[2019-02-19] MEDS: THIAMINE 100 MG TAB PO SCH (09:37)
[2019-02-19] MEDS: DULoxetine 30 MG CAP (CYMBALTA) PO SCH (09:37)
[2019-02-19] MEDS: LEVEMIR (INSULIN DETEMIR) 1 UNITS/0.01ML SC SCH ×2 (09:38→21:47)
[2019-02-19] MEDS: GABAPENTIN 400 MG CAP PO SCH ×3 (09:39→21:39)
[2019-02-19] MEDS: DIVALPROEX 250 MG TAB PO SCH ×2 (09:39→21:38)
[2019-02-19] MEDS: HumaLOG INSULIN (NovoLOG) PER UNIT SC SCH ×4 (09:39→21:00)
[2019-02-19] MEDS: NICOTINE POLACRILEX 2 MG GUM PO PRN ×6 (09:43→23:48)
[2019-02-19 16:49] VITALS: BP 131/61
[2019-02-19] MEDS: BUPRENORPHINE/NALOXONE 2-0.5MG SUBLINGUAL TABLET(SUBOXONE) SL SCH (21:39)
[2019-02-19] MEDS: QUEtiapine FUMARATE **XR** 200MG TABLET PO SCH (21:39)
[2019-02-19] MEDS: PRAZOSIN 1 MG CAP PO SCH (21:39)
[2019-02-19] MEDS: QUEtiapine FUMARATE 50 MG TAB PO PRN (21:48)
[2019-02-20] MEDS: NICOTINE POLACRILEX 2 MG GUM PO PRN ×6 (03:02→22:52)
[2019-02-20] MEDS: ACETAMINOPHEN 650MG ER TAB (TYLENOL ARTHRITIS) PO SCH ×3 (06:02→20:56)
[2019-02-20 07:18] VITALS: BP 128/69
[2019-02-20] MEDS: HumaLOG INSULIN (NovoLOG) PER UNIT SC SCH ×4 (07:38→21:00)
[2019-02-20] MEDS: THIAMINE 100 MG TAB PO SCH (08:30)
[2019-02-20] MEDS: AUGMENTIN 875 MG TAB PO SCH (08:30)
[2019-02-20] MEDS: CARVedilol 12.5 MG TAB PO SCH ×2 (08:30→20:53)
[2019-02-20] MEDS: GABAPENTIN 400 MG CAP PO SCH ×3 (08:30→20:53)
[2019-02-20] MEDS: MAGNESIUM OXIDE 400 MG TAB (MAG-OX) PO SCH (08:30)
[2019-02-20] MEDS: DULoxetine 30 MG CAP (CYMBALTA) PO SCH (08:31)
[2019-02-20] MEDS: DIVALPROEX 250 MG TAB PO SCH ×2 (08:31→20:54)
[2019-02-20] MEDS: amLODIPine 10 MG TAB PO SCH (08:31)
[2019-02-20] MEDS: cloNIDine 0.1 MG TAB PO SCH ×3 (08:31→20:53)
[2019-02-20] MEDS: hydroCHLOROthiazide 25 MG TAB PO SCH (08:32)
[2019-02-20] MEDS: LEVEMIR (INSULIN DETEMIR) 1 UNITS/0.01ML SC SCH ×2 (08:32→20:58)
[2019-02-20] MEDS: POTASSIUM CHLORIDE 10 MEQ SR TABLET PO SCH (08:32)
--- NOTE | 2019-02-20 08:45 | MHIPN ---
DATE: 02/19/2019 SUBJECTIVE: "I don't feel good, I eat normal diet, I don't want divertic diet". OBJECTIVE: He is a 48-year-old male with history of polysubstance dependence, history of IV drug use who was admitted because of depression and suicidal thoughts with a plan to jump off the river. Reportedly, patient was hopeless, helpless. He had a wound vacuum placed on his left arm after he developed cellulitis. He reported that it was not helping him. He came to the hospital for help. However, he is attending group and interacting with the peers. At times he says he stays to himself to his room. However, today he complained he is not getting enough diet, however, he is on 1800 calorie diet. 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 Patient is in the process of adjustment of his Suboxone, I am tapering it off. MENTAL STATUS EXAMINATION: Casually dressed. Cooperative. Made good eye contact. Psychomotor activity is normal. Speech rate, rhythm, and volume are good. Thought process linear, goal directed. Thought content denied any delusions. He reports mild suicidal thoughts without plan. Insight and judgment are limited. Memory immediate, remote, recent are good. Oriented to time, place, and person. DIAGNOSIS: Depressive disorder, not otherwise specified. Polysubstance use disorder. VITAL SIGNS: Temperature 98.5, pulse 70, respiratory rate 14, blood pressure 154/74. His blood sugar today was in the morning 198, at noon it was 184. He is on sliding scale insulin regimen. PLAN: Decrease his Suboxone to 2 mg/0.5 mg in the morning tomorrow. Patient is likely to go to rehabilitation. His placement is in the process. Continue individual group and milieu therapy.
[2019-02-20] MEDS ORDERED: BUPRENORPHINE/NALOXONE 2-0.5MG SUBLINGUAL TABLET(SUBOXONE) SL SCH (09:00)
--- NOTE | 2019-02-20 11:07 | MHIPNPDOC ---
[facility] Progress Note Vital Signs Vital Signs Date Time Temp Pulse Resp B/P (MAP) Pulse Ox O2 Delivery O2 Flow Rate FiO2 02/20/19 08:31 77 02/20/19 08:30 102/61 02/20/19 07:18 98.0 16 02/14/19 14:45 100 Laboratory Data 24H Labs Laboratory Tests 2 02/19/19 11:59: Bedside Glucose (Misc Panel) 184H 02/19/19 17:04: Bedside Glucose (Misc Panel) 110H 02/19/19 21:34: Bedside Glucose (Misc Panel) 209H 02/20/19 07:27: Bedside Glucose (Misc Panel) 225H Current Medications Current Medications Medications (Trade) Dose Ordered Sig/Tee Route PRN Reason Start Time Stop Time Status Last Admin Dose Admin Acetaminophen (Tylenol Arthritis Er) 650 mg Q8H PO 02/06/19 22:00 02/20/19 06:02 Acetaminophen (Tylenol Tab) 650 mg Q6HP PRN PO HEADACHE or DISCOMFORT 02/06/19 15:00 Cancel Al Hydrox/Mg Hydrox/Simethicone (Mylanta) 30 ml Q4HP PRN PO HEARTBURN/INDIGESTION 02/06/19 15:00 02/16/19 15:09 Amlodipine Besylate (Norvasc) 10 mg DAILY PO 02/06/19 09:00 02/06/19 18:46 DC 02/06/19 08:44 Amlodipine Besylate (Norvasc) 10 mg DAILY PO 02/07/19 09:00 02/20/19 08:31 Amoxicillin/ Clavulanate Potassium (Augmentin) 875 mg BID PO 02/05/19 21:00 02/06/19 18:56 DC 02/06/19 08:44 Amoxicillin/ Clavulanate Potassium (Augmentin) 875 mg BID PO 02/06/19 21:00 02/20/19 09:01 DC 02/20/19 08:30 Buprenorphine/ Naloxone (Suboxone 2/ 0.5mg) 1 tab DAILY SL 02/20/19 09:00 02/20/19 08:32 Buprenorphine/ Naloxone (Suboxone 2/ 0.5mg) 1 tab QHS SL 02/18/19 21:00 02/19/19 21:39 Buprenorphine/ Naloxone (Suboxone 8/2mg) 0.5 tab DAILY SL 02/19/19 09:00 02/19/19 16:21 DC 02/19/19 09:40 Buprenorphine/ Naloxone (Suboxone 8/2mg) 0.5 tab QHS 02/17/19 21:00 02/18/19 13:46 DC 02/17/19 20:58 Buprenorphine/ Naloxone (Suboxone 8/2mg) 1 tab BID 02/13/19 21:00 02/17/19 16:13 DC 02/17/19 10:08 Buprenorphine/ Naloxone (Suboxone 8/2mg) 1 tab DAILY 02/18/19 09:00 02/18/19 13:39 DC 02/18/19 08:40 Buprenorphine/ Naloxone (Suboxone 8/2mg) 1 tab QHS 02/12/19 21:00 02/13/19 14:04 DC 02/12/19 20:23 Carvedilol (COReg) 25 mg BID PO 02/05/19 21:00 02/06/19 18:56 DC 02/06/19 08:44 Carvedilol (COReg) 25 mg BID PO 02/06/19 21:00 02/20/19 08:30 Clonidine HCl (Catapres) 0.1 mg TID PO 02/05/19 16:00 02/06/19 18:56 DC 02/06/19 08:44 Clonidine HCl (Catapres) 0.1 mg TID PO 02/06/19 21:00 02/20/19 08:31 Dextrose (Dextrose 50%) 25 ml ASDIRECTED PRN IV SEE LABEL COMMENTS 02/06/19 15:15 Divalproex Sodium (Depakote) 750 mg BID PO 02/05/19 21:00 02/06/19 18:56 DC 02/06/19 08:45 Divalproex Sodium (Depakote) 750 mg BID PO 02/06/19 21:00 02/20/19 08:31 Duloxetine HCl (Cymbalta) 90 mg DAILY PO 02/06/19 09:00 02/06/19 18:56 DC 02/06/19 08:46 Duloxetine HCl (Cymbalta) 90 mg DAILY PO 02/07/19 09:00 02/20/19 08:31 Gabapentin (Neurontin) 400 mg TID PO 02/05/19 16:00 02/06/19 18:56 DC 02/06/19 08:46 Gabapentin (Neurontin) 400 mg TID PO 02/06/19 21:00 02/20/19 08:30 Glucagon (Glucagon) 1 mg ASDIRECTED PRN SC SEE LABEL COMMENTS 02/06/19 15:15 Glucose (Glucose) 16 GM ASDIRECTED PRN PO SEE LABEL COMMENTS 02/06/19 15:15 Home Med (Med Rec Complete!) ASDIRECTED XX 02/05/19 08:15 02/05/19 08:27 DC Hydrochlorothiazide (Hydrodiuril) 25 mg DAILY PO 02/06/19 09:00 02/06/19 18:56 DC 02/06/19 08:46 Hydrochlorothiazide (Hydrodiuril) 25 mg DAILY PO 02/07/19 09:00 02/20/19 08:32 Hydroxyzine HCl (Atarax) 50 mg Q6HP PRN PO ANXIETY/AGITATION 02/06/19 18:45 02/17/19 12:34 Insulin Detemir (Levemir Insulin) 30 units BID SC 02/06/19 21:00 02/06/19 21:00 DC Insulin Detemir (Levemir Insulin) 30 units BID SC 02/06/19 21:00 02/07/19 04:54 DC Insulin Detemir (Levemir Insulin) 30 units BID SC 02/06/19 21:00 02/20/19 08:32 Insulin Human Lispro (HumaLOG INSULIN) See Protocol Table AC SC 02/06/19 17:30 02/20/19 07:38 Insulin Human Lispro (HumaLOG INSULIN) See Protocol Table QHS SC 02/06/19 21:00 02/16/19 20:38 Magnesium Hydroxide (Milk Of Magnesia) 30 ml DAILYPRN PRN PO CONSTIPATION 02/06/19 15:00 02/17/19 20:55 Magnesium Oxide (Mag-Ox) 400 mg DAILY PO 02/06/19 09:00 02/06/19 18:56 DC 02/06/19 08:46 Magnesium Oxide (Mag-Ox) 400 mg DAILY PO 02/07/19 09:00 02/20/19 08:30 Miscellaneous (Unresolved Clarification Entry) SEE LABEL COMMENTS DAILY XX 02/13/19 09:00 02/13/19 10:38 DC Miscellaneous (Unresolved Clarification Entry) SEE LABEL COMMENTS DAILY XX 02/19/19 09:00 02/19/19 11:56 DC Multivitamins (Theragram-M) 1 tab DAILY PO 02/06/19 09:00 02/06/19 19:50 DC 02/06/19 08:44 Nicotine (Nicorette) 2 mg Q2HP PRN PO NICOTINE WITHDRAWAL 02/06/19 21:45 02/07/19 17:00 DC 02/07/19 13:54 Nicotine (Nicorette) 4 mg Q2HP PRN PO SMOKING CESSATION 02/05/19 12:15 02/06/19 19:50 DC 02/06/19 14:34 Nicotine (Nicorette) 4 mg Q2HP PRN PO NICOTINE WITHDRAWAL 02/07/19 17:00 02/20/19 07:41 Oxycodone HCl (OxyCONTIN) 30 mg BID PO 02/05/19 21:00 02/06/19 18:56 DC 02/06/19 08:46 Oxycodone HCl (OxyCONTIN) 30 mg BID PO 02/06/19 21:00 02/12/19 11:35 DC 02/12/19 09:36 Oxycodone HCl (Roxicodone, Oxyir) 5 mg Q4HP PRN PO BREAKTHROUGH PAIN 02/06/19 18:30 02/12/19 11:35 DC 02/09/19 16:43 Oxycodone HCl (Roxicodone, Oxyir) 5 mg QIDP PRN PO PAIN OR DYSPNEA 02/05/19 13:15 02/06/19 18:56 DC 02/06/19 15:15 Potassium Chloride (Micro-K Extencaps) 20 meq DAILY PO 02/06/19 09:00 02/06/19 18:56 DC 02/06/19 08:45 Potassium Chloride (Micro-K Extencaps) 20 meq DAILY PO 02/07/19 09:00 02/20/19 08:32 Prazosin HCl (Minipress) 4 mg QHS PO 02/05/19 21:00 02/06/19 18:56 DC 02/05/19 20:58 Prazosin HCl (Minipress) 4 mg QHS PO 02/06/19 21:00 02/19/19 21:39 Quetiapine Fumarate (SEROquel XR) 400 mg QHS PO 02/13/19 21:00 02/19/19 21:39 Quetiapine Fumarate (SEROquel) 50 mg QHS PO 02/16/19 21:00 02/17/19 21:05 DC 02/16/19 22:17 Quetiapine Fumarate (SEROquel) 50 mg QHSP PRN PO SLEEP 02/16/19 22:15 02/19/19 21:48 Quetiapine Fumarate (SEROquel) 100 mg DAILY PO 02/06/19 09:00 02/06/19 18:56 DC 02/06/19 08:44 Quetiapine Fumarate (SEROquel) 100 mg DAILY PO 02/07/19 09:00 02/13/19 14:04 DC 02/13/19 08:58 Quetiapine Fumarate (SEROquel) 300 mg QHS PO 02/05/19 21:00 02/06/19 18:56 DC 02/05/19 20:58 Quetiapine Fumarate (SEROquel) 300 mg QHS PO 02/06/19 21:00 02/13/19 14:04 DC 02/12/19 20:28 Thiamine HCl (Thiamine HCl) 100 mg DAILY PO 02/06/19 09:00 02/06/19 18:56 DC 02/06/19 08:44 Thiamine HCl (Thiamine HCl) 100 mg DAILY PO 02/07/19 09:00 02/20/19 08:30 Trazodone HCl (Desyrel) 50 mg QHS PRN PO INSOMNIA 02/06/19 18:30 Cancel Trazodone HCl (Desyrel) 50 mg QHSP PRN PO INSOMNIA 02/06/19 15:00 02/06/19 18:56 DC Allergies Coded Allergies: No Known Allergies (Unverified , 10/19/18) ANJUM LE DO Feb 20, 2019 11:06
--- NOTE | 2019-02-20 12:39 | MHIPNPDOC ---
[facility] Progress Note Progress Note Date of Service: 02/20/2019 History of Present Illness The patient, a 48-year-old man with a long psychiatric history, is admitted to our inpatient service after reportedly being in our behavioral health unit over the weekend. He reportedly had presented with suicidal thoughts in the context of substance use, as well as reported auditory hallucinations. When I attempted to interview individual, he refused to talk to me, but was able to respond to cues suggesting volitional presentation. Interval History The patient was met with today. He reports he is doing better and requests to leave. He states that he is feeling much improved and that the 2 mg of buprenorphine is helpful, although that he has some mild pain at times. He reports his mood is improved and he's motivated for outpatient treatment. No major behavioral problems over the weekend. He has been cooperating with discharge planning and doing well. Review Of Systems Denies any dizziness, oversedation, GI upset, nausea, vomiting, constipation, diarrhea, chest pain, or palpitations at this time. Reports mood improved, less fatigue, more motivation, less concentration, focus deficit. Psychotherapy None on this visit. Vital Signs Reviewed. Mental Status Examination General: Well dressed with good hygiene Speech: Spontaneous and fluid Thought processes: Linear and logical MSK: Smooth and coordinated gait, no signs of tremors or involuntary orofacial movements Thought content: Future orientated Abstract reasoning, and computation: Intact Description of associations: Intact Description of abnormal or psychotic thoughts: Denies any suicidal or homicidal ideation. Denies any auditory or visual hallucinations. Does not appear to be responding to internal stimuli. Does not appear to be endorsing any bizarre or paranoid ideation. Judgment: fair Insight: fair Orientation: Alert and orientated 3 Cognition: Grossly normal Recent and remote memory: Intact Attention span and concentration: Intact Fund of knowledge: Adequate Mood: "okay" Affect: Euthymic with a full range Diagnoses Unspecified depressive disorder. Rule out substance induced versus malingering. Stimulant use disorder, severe. Alcohol use disorder, severe. Tobacco use disorder, severe. Unspecified trauma/stressor related disorder. Assessment and Plan Continue buprenorphine and Seroquel as below. Potential discharge tomorrow. Disposition Discharge tomorrow. Time Spent 10 minutes [id number]. Vital Signs Vital Signs Date Time Temp Pulse Resp B/P (MAP) Pulse Ox O2 Delivery O2 Flow Rate FiO2 02/20/19 08:31 77 02/20/19 08:30 102/61 02/20/19 07:18 98.0 16 02/14/19 14:45 100 Laboratory Data 24H Labs Laboratory Tests 2 02/19/19 17:04: Bedside Glucose (Misc Panel) 110H 02/19/19 21:34: Bedside Glucose (Misc Panel) 209H 02/20/19 07:27: Bedside Glucose (Misc Panel) 225H 02/20/19 12:01: Bedside Glucose (Misc Panel) 130H Current Medications Current Medications Medications (Trade) Dose Ordered Sig/Tee Route PRN Reason Start Time Stop Time Status Last Admin Dose Admin Acetaminophen (Tylenol Arthritis Er) 650 mg Q8H PO 02/06/19 22:00 02/20/19 06:02 Acetaminophen (Tylenol Tab) 650 mg Q6HP PRN PO HEADACHE or DISCOMFORT 02/06/19 15:00 Cancel Al Hydrox/Mg Hydrox/Simethicone (Mylanta) 30 ml Q4HP PRN PO HEARTBURN/INDIGESTION 02/06/19 15:00 02/16/19 15:09 Amlodipine Besylate (Norvasc) 10 mg DAILY PO 02/06/19 09:00 02/06/19 18:46 DC 02/06/19 08:44 Amlodipine Besylate (Norvasc) 10 mg DAILY PO 02/07/19 09:00 02/20/19 08:31 Amoxicillin/ Clavulanate Potassium (Augmentin) 875 mg BID PO 02/05/19 21:00 02/06/19 18:56 DC 02/06/19 08:44 Amoxicillin/ Clavulanate Potassium (Augmentin) 875 mg BID PO 02/06/19 21:00 02/20/19 09:01 DC 02/20/19 08:30 Buprenorphine/ Naloxone (Suboxone 2/ 0.5mg) 1 tab DAILY SL 02/20/19 09:00 02/20/19 08:32 Buprenorphine/ Naloxone (Suboxone 2/ 0.5mg) 1 tab QHS SL 02/18/19 21:00 02/19/19 21:39 Buprenorphine/ Naloxone (Suboxone 8/2mg) 0.5 tab DAILY SL 02/19/19 09:00 02/19/19 16:21 DC 02/19/19 09:40 Buprenorphine/ Naloxone (Suboxone 8/2mg) 0.5 tab QHS 02/17/19 21:00 02/18/19 13:46 DC 02/17/19 20:58 Buprenorphine/ Naloxone (Suboxone 8/2mg) 1 tab BID 02/13/19 21:00 02/17/19 16:13 DC 02/17/19 10:08 Buprenorphine/ Naloxone (Suboxone 8/2mg) 1 tab DAILY 02/18/19 09:00 02/18/19 13:39 DC 02/18/19 08:40 Buprenorphine/ Naloxone (Suboxone 8/2mg) 1 tab QHS 02/12/19 21:00 02/13/19 14:04 DC 02/12/19 20:23 Carvedilol (COReg) 25 mg BID PO 02/05/19 21:00 02/06/19 18:56 DC 02/06/19 08:44 Carvedilol (COReg) 25 mg BID PO 02/06/19 21:00 02/20/19 08:30 Clonidine HCl (Catapres) 0.1 mg TID PO 02/05/19 16:00 02/06/19 18:56 DC 02/06/19 08:44 Clonidine HCl (Catapres) 0.1 mg TID PO 02/06/19 21:00 02/20/19 08:31 Dextrose (Dextrose 50%) 25 ml ASDIRECTED PRN IV SEE LABEL COMMENTS 02/06/19 15:15 Divalproex Sodium (Depakote) 750 mg BID PO 02/05/19 21:00 02/06/19 18:56 DC 02/06/19 08:45 Divalproex Sodium (Depakote) 750 mg BID PO 02/06/19 21:00 02/20/19 08:31 Duloxetine HCl (Cymbalta) 90 mg DAILY PO 02/06/19 09:00 02/06/19 18:56 DC 02/06/19 08:46 Duloxetine HCl (Cymbalta) 90 mg DAILY PO 02/07/19 09:00 02/20/19 08:31 Gabapentin (Neurontin) 400 mg TID PO 02/05/19 16:00 02/06/19 18:56 DC 02/06/19 08:46 Gabapentin (Neurontin) 400 mg TID PO 02/06/19 21:00 02/20/19 08:30 Glucagon (Glucagon) 1 mg ASDIRECTED PRN SC SEE LABEL COMMENTS 02/06/19 15:15 Glucose (Glucose) 16 GM ASDIRECTED PRN PO SEE LABEL COMMENTS 02/06/19 15:15 Home Med (Med Rec Complete!) ASDIRECTED XX 02/05/19 08:15 02/05/19 08:27 DC Hydrochlorothiazide (Hydrodiuril) 25 mg DAILY PO 02/06/19 09:00 02/06/19 18:56 DC 02/06/19 08:46 Hydrochlorothiazide (Hydrodiuril) 25 mg DAILY PO 02/07/19 09:00 02/20/19 08:32 Hydroxyzine HCl (Atarax) 50 mg Q6HP PRN PO ANXIETY/AGITATION 02/06/19 18:45 02/17/19 12:34 Insulin Detemir (Levemir Insulin) 30 units BID SC 02/06/19 21:00 02/06/19 21:00 DC Insulin Detemir (Levemir Insulin) 30 units BID SC 02/06/19 21:00 02/07/19 04:54 DC Insulin Detemir (Levemir Insulin) 30 units BID SC 02/06/19 21:00 02/20/19 08:32 Insulin Human Lispro (HumaLOG INSULIN) See Protocol Table AC SC 02/06/19 17:30 02/20/19 12:13 Insulin Human Lispro (HumaLOG INSULIN) See Protocol Table QHS SC 02/06/19 21:00 02/16/19 20:38 Magnesium Hydroxide (Milk Of Magnesia) 30 ml DAILYPRN PRN PO CONSTIPATION 02/06/19 15:00 02/17/19 20:55 Magnesium Oxide (Mag-Ox) 400 mg DAILY PO 02/06/19 09:00 02/06/19 18:56 DC 02/06/19 08:46 Magnesium Oxide (Mag-Ox) 400 mg DAILY PO 02/07/19 09:00 02/20/19 08:30 Miscellaneous (Unresolved Clarification Entry) SEE LABEL COMMENTS DAILY XX 02/13/19 09:00 02/13/19 10:38 DC Miscellaneous (Unresolved Clarification Entry) SEE LABEL COMMENTS DAILY XX 02/19/19 09:00 02/19/19 11:56 DC Multivitamins (Theragram-M) 1 tab DAILY PO 02/06/19 09:00 02/06/19 19:50 DC 02/06/19 08:44 Nicotine (Nicorette) 2 mg Q2HP PRN PO NICOTINE WITHDRAWAL 02/06/19 21:45 02/07/19 17:00 DC 02/07/19 13:54 Nicotine (Nicorette) 4 mg Q2HP PRN PO SMOKING CESSATION 02/05/19 12:15 02/06/19 19:50 DC 02/06/19 14:34 Nicotine (Nicorette) 4 mg Q2HP PRN PO NICOTINE WITHDRAWAL 02/07/19 17:00 02/20/19 07:41 Oxycodone HCl (OxyCONTIN) 30 mg BID PO 02/05/19 21:00 02/06/19 18:56 DC 02/06/19 08:46 Oxycodone HCl (OxyCONTIN) 30 mg BID PO 02/06/19 21:00 02/12/19 11:35 DC 02/12/19 09:36 Oxycodone HCl (Roxicodone, Oxyir) 5 mg Q4HP PRN PO BREAKTHROUGH PAIN 02/06/19 18:30 02/12/19 11:35 DC 02/09/19 16:43 Oxycodone HCl (Roxicodone, Oxyir) 5 mg QIDP PRN PO PAIN OR DYSPNEA 02/05/19 13:15 02/06/19 18:56 DC 02/06/19 15:15 Potassium Chloride (Micro-K Extencaps) 20 meq DAILY PO 02/06/19 09:00 02/06/19 18:56 DC 02/06/19 08:45 Potassium Chloride (Micro-K Extencaps) 20 meq DAILY PO 02/07/19 09:00 02/20/19 08:32 Prazosin HCl (Minipress) 4 mg QHS PO 02/05/19 21:00 02/06/19 18:56 DC 02/05/19 20:58 Prazosin HCl (Minipress) 4 mg QHS PO 02/06/19 21:00 02/19/19 21:39 Quetiapine Fumarate (SEROquel XR) 400 mg QHS PO 02/13/19 21:00 02/19/19 21:39 Quetiapine Fumarate (SEROquel) 50 mg QHS PO 02/16/19 21:00 02/17/19 21:05 DC 02/16/19 22:17 Quetiapine Fumarate (SEROquel) 50 mg QHSP PRN PO SLEEP 02/16/19 22:15 02/19/19 21:48 Quetiapine Fumarate (SEROquel) 100 mg DAILY PO 02/06/19 09:00 02/06/19 18:56 DC 02/06/19 08:44 Quetiapine Fumarate (SEROquel) 100 mg DAILY PO 02/07/19 09:00 02/13/19 14:04 DC 02/13/19 08:58 Quetiapine Fumarate (SEROquel) 300 mg QHS PO 02/05/19 21:00 02/06/19 18:56 DC 02/05/19 20:58 Quetiapine Fumarate (SEROquel) 300 mg QHS PO 02/06/19 21:00 02/13/19 14:04 DC 02/12/19 20:28 Thiamine HCl (Thiamine HCl) 100 mg DAILY PO 02/06/19 09:00 02/06/19 18:56 DC 02/06/19 08:44 Thiamine HCl (Thiamine HCl) 100 mg DAILY PO 02/07/19 09:00 02/20/19 08:30 Trazodone HCl (Desyrel) 50 mg QHS PRN PO INSOMNIA 02/06/19 18:30 Cancel Trazodone HCl (Desyrel) 50 mg QHSP PRN PO INSOMNIA 02/06/19 15:00 02/06/19 18:56 DC Allergies Coded Allergies: No Known Allergies (Unverified , 10/19/18) ANJUM LE DO Feb 20, 2019 12:39
[2019-02-20 16:52] VITALS: BP 146/75
[2019-02-20] MEDS: QUEtiapine FUMARATE **XR** 200MG TABLET PO SCH (20:52)
[2019-02-20] MEDS: PRAZOSIN 1 MG CAP PO SCH (20:55)
[2019-02-20] MEDS: BUPRENORPHINE/NALOXONE 2-0.5MG SUBLINGUAL TABLET(SUBOXONE) SL SCH (20:55)
[2019-02-21] MEDS: ACETAMINOPHEN 650MG ER TAB (TYLENOL ARTHRITIS) PO SCH (06:16)
[2019-02-21] MEDS: NICOTINE POLACRILEX 2 MG GUM PO PRN ×2 (07:49→10:06)
[2019-02-21] MEDS: HumaLOG INSULIN (NovoLOG) PER UNIT SC SCH (07:49)
--- NOTE | 2019-02-21 09:23 | MHDSPDOC ---
[facility] Discharge Summary Discharge Summary DATE OF ADMISSION: Feb 06, 2019 at 14:50 DATE OF DISCHARGE: 02/20/19 Date of Service: 02/21/2019 Diagnoses Unspecified depressive disorder. Rule out substance induced versus malingering. Stimulant use disorder, severe. Alcohol use disorder, severe. Tobacco use disorder, severe. Unspecified trauma/stressor related disorder. History of Present Illness The patient, a 48-year-old man with a long psychiatric history, is admitted to our inpatient service after reportedly being in our behavioral health unit over the weekend. He reportedly had presented with suicidal thoughts in the context of substance use, as well as reported auditory hallucinations. When I attempted to interview individual, he refused to talk to me, but was able to respond to cues suggesting volitional presentation. Consultants Involved Hospitalist/PCP screening Treatment and Progress On The Unit The patient was met with and subsequently evaluated. He was noted to have significant overuse of his opioids and reported substance use. He was subsequently changed from a split dose of 100 mg/300 mg of immediate release Seroquel that was causing him over sedation to 400 mg nightly of extended release with positive effects unless sedation. Additionally, he was tapered off of his opioids on to buprenorphine with positive results subsequently due to wanting to go to rehab and he was titrated down to a dose of 2 mg of buprenorphine daily with positive effects on his pain and ability to tend to his needs. He was much less sedated. His wound that was chronic began to heal very well. He became much more euthymic, able to work with his treatment team and denied suicidality for significant portion prior to his discharge. Discussed about the patient leaving and the patient requested to leave on the day of discharge. He had denied any suicidal or homicidal ideation for several days prior and had been able to attend his needs much and very well clinically improved. He declined further voluntary admission and was discharged in good gentry as in this provider's clinical judgment he did not meet criteria for further involuntary treatment. He was discharged with recommendations to follow- up with this provider in outpatient addictions for continued buprenorphine treatment as it would likely help get him off chronic opioid use which appeared to be a significant portion in addition to other substance use in terms of his depression. Discharge Assessment 48-year-old man with chronic readmissions presents depressed after substance use. He's on chronic opioids that likely contribute to his significant addiction after some mild medication adjustments and use of buprenorphine. He makes positive results likely experiencing much less depression and improving greatly. Mental Status Examination General: Well dressed with good hygiene Speech: Spontaneous and fluid Thought processes: Linear and logical MSK: Smooth and coordinated gait, no signs of tremors or involuntary orofacial movements Thought content: Future orientated Abstract reasoning, and computation: Intact Description of associations: Intact Description of abnormal or psychotic thoughts: Denies any suicidal or homicidal ideation. Denies any auditory or visual hallucinations. Does not appear to be responding to internal stimuli. Does not appear to be endorsing any bizarre or paranoid ideation. Judgment: fair Insight: fair Orientation: Alert and orientated 3 Cognition: Grossly normal Recent and remote memory: Intact Attention span and concentration: Intact Fund of knowledge: Adequate Mood: "okay" Affect: Euthymic with a full range Follow Up The social work team worked during the predischarge meeting in order to evaluate for further issues of lethality address them fully before discharge. They worked on safety planning with the patient's family members in order to ensure that the patient will have a safe and effective discharge. The patient was discharged with a small supply of buprenorphine with instructions to follow up with this provider. ISTOP checked [id number], no signs of other controlled substances Time Spent The amount of time spent in the coordination of care for this patient was approximately 30 minutes. Tuesday Vital Signs/I&Os Vital Signs Date Time Temp Pulse Resp B/P (MAP) Pulse Ox O2 Delivery O2 Flow Rate FiO2 02/20/19 20:55 141/86 02/20/19 20:53 75 02/20/19 16:52 98.2 18 Laboratory Data Labs 24H Laboratory Tests 2 02/20/19 12:01: Bedside Glucose (Misc Panel) 130H 02/20/19 17:36: Bedside Glucose (Misc Panel) 114H 02/20/19 20:42: Bedside Glucose (Misc Panel) 177H 02/21/19 07:44: Bedside Glucose (Misc Panel) 130H Medications Scheduled Acetaminophen (Tylenol Arthritis) 650 Mg Tablet.er, 650 MG PO Q8H, (Reported) Amlodipine Besylate (Amlodipine Besylate) 10 Mg Tablet, 10 MG PO DAILY, (Reported) Buprenorphine HCl/Naloxone HCl (Suboxone 2 mg-0.5 mg Sl Film) 1 Each Film, 1 STRIP SL DAILY for pain for 14 Days, #14 Carvedilol (Carvedilol) 12.5 Mg Tablet, 25 MG PO BID, (Reported) Clonidine HCl (Clonidine HCl) 0.1 Mg Tablet, 0.1 MG PO TID, (Reported) Divalproex Sodium (Divalproex Sodium) 250 Mg Tablet.dr, 750 MG PO BID, (Reported) Duloxetine Hcl (Duloxetine HCl) 30 Mg Capsule.dr, 90 MG PO DAILY, (Reported) Gabapentin (Gabapentin) 400 Mg Capsule, 400 MG PO TID, (Reported) Hydrochlorothiazide (Hydrochlorothiazide) 25 Mg Tablet, 25 MG PO DAILY, (Reported) Insulin Detemir (Levemir) 100 Unit/1 Ml Vial, 30 UNITS SC BID, (Reported) Insulin Human Lispro (Humalog) 100 Unit/1 Ml Vial, 1 DOSE SC ACHS, (Reported) PER SLIDING SCALE Magnesium Oxide (Magnesium Oxide) 400 Mg Tablet, 400 MG PO DAILY, (Reported) Multivitamins (Thera M Plus Tablet) 1 Each Tablet, 1 TAB PO DAILY, (Reported) Paliperidone Palmitate (Invega Sustenna) 234 Mg/1.5 Ml Syringe, 234 MG IM QMONTH, (Reported) Potassium Chloride (Potassium Chloride) 10 Meq Tablet.er, 20 MEQ PO DAILY, (Reported) Prazosin Hcl (Prazosin HCl) 1 Mg Capsule, 4 MG PO QHS, (Reported) Quetiapine Fumarate (Quetiapine Fumarate ER) 200 Mg Tab.er.24h, 400 MG PO QHS for mood for 7 Days, #14 Thiamine HCl (Thiamine HCl) 100 Mg Tablet, 100 MG PO DAILY, (Reported) Scheduled PRN Nicotine Polacrilex (Nicotine Gum) 4 Mg Gum, 4 MG MT Q2H PRN for SMOKING CESSATION, (Reported) Tramadol HCl/Acetaminophen (Tramadol-Acetaminophn 37.5-325) 1 Each Tablet, 1 TAB PO Q4H PRN for PAIN, (Reported) Allergies Coded Allergies: No Known Allergies (Unverified , 10/19/18) ANJUM LE DO Feb 21, 2019 09:23
[2019-02-21 09:30] VITALS: BP 128/60
[2019-02-21] MEDS: CARVedilol 12.5 MG TAB PO SCH (09:30)
[2019-02-21] MEDS: DULoxetine 30 MG CAP (CYMBALTA) PO SCH (09:30)
[2019-02-21] MEDS: amLODIPine 10 MG TAB PO SCH (09:30)
[2019-02-21] MEDS: cloNIDine 0.1 MG TAB PO SCH (09:30)
[2019-02-21] MEDS: THIAMINE 100 MG TAB PO SCH (09:30)
[2019-02-21] MEDS: GABAPENTIN 400 MG CAP PO SCH (09:31)
[2019-02-21] MEDS: hydroCHLOROthiazide 25 MG TAB PO SCH (09:31)
[2019-02-21] MEDS: DIVALPROEX 250 MG TAB PO SCH (09:31)
[2019-02-21] MEDS: LEVEMIR (INSULIN DETEMIR) 1 UNITS/0.01ML SC SCH (09:32)
[2019-02-21] MEDS: POTASSIUM CHLORIDE 10 MEQ SR TABLET PO SCH (09:32)
[2019-02-21] MEDS: MAGNESIUM OXIDE 400 MG TAB (MAG-OX) PO SCH (09:32)
[2019-02-21] MEDS ORDERED: QUET200T54 PO (10:02)
[2019-02-21] MEDS ORDERED: BUPRENORPHINE/NALOXONE 2-0.5MG SUBLINGUAL TABLET(SUBOXONE) SL ONE (10:15)
[2019-02-21] MEDS ORDERED: SUBO2MIS SL (11:48)
== END 2019-02-21 11:40 | disposition home or self-care (01) | DRG 881 ==
LOC: M ED 21:13 → M ED INP 02-06 14:50 → M PSY 02-06 16:30
PROVIDERS: ADMIT Psychiatry & Neurology Addiction Medicine; ATTEND Psychiatry & Neurology Addiction Medicine
DX: F32.9 Major depressive disorder, single episode, unspecified (principal); F15.20 Other stimulant dependence, uncomplicated; L02.414 Cutaneous abscess of left upper limb; F11.14 Opioid abuse with opioid-induced mood disorder; F10.20 Alcohol dependence, uncomplicated; F17.200 Nicotine dependence, unspecified, uncomplicated; E11.65 Type 2 diabetes mellitus with hyperglycemia; I12.9 Hypertensive chronic kidney disease with stage 1 through stage 4 chronic kidney disease, or unspecified chronic kidney disease; Z79.899 Other long term (current) drug therapy; F43.9 Reaction to severe stress, unspecified; Z79.4 Long term (current) use of insulin; F41.9 Anxiety disorder, unspecified; N18.3 Chronic kidney disease, stage 3 (moderate); Z76.5 Malingerer [conscious simulation]